=== PATIENT | male | born 1965 | race Caucasian/White ===

== ENCOUNTER → 2021-12-24 | Outpatient (CLI) | payer BC ==
--- NOTE | 2021-12-25 01:15 | MR ---
EXAMINATION TYPE: MR cervical spine wo con DATE OF EXAM: 12/24/2021 COMPARISON: None HISTORY: Right side facial numbness and neck numbness for over a year. Multiplanar multi echo imaging of the cervical spine without contrast. There is fairly normal alignment of the vertebra. There is degenerative disc space narrowing from C3 to C7 with spurring of the endplates. There is moderate endplate spur formation and spinal stenosis p resent from C3 to C6 level. Spinal canal is 6.5 mm at C3-4. Spinal canal is 8 mm at C4-5. Spinal quiana l measures 5.5 mm at C5-6. There is mild flattening of the cervical cord. There is no paraspinal mass . Brainstem is intact. Cervical cord shows no significant edema. There is multilevel hypertrophic fac et arthropathy. IMPRESSION: Moderate multilevel spondylotic changes. Multilevel cervical spinal stenosis mainly at C5 C6. No frac ture seen.
== END | disposition home or self-care (01) ==
LOC: RADMRIMAIN 21:29
PROVIDERS: ATTEND Physician Assistant Medical
DX: M48.02 Spinal stenosis, cervical region (principal); M47.22 Other spondylosis with radiculopathy, cervical region
CPT/HCPCS: 72141

== ENCOUNTER → 2022-03-24 | Outpatient (CLI) | payer BC ==
[2022-03-24 13:42] VITALS: BP 148/79; PULSE 86; RESP 16
--- NOTE | 2022-03-24 14:19 | P.PAINPG ---
PQRS Measure Charge Sheet Comment: HISTORY OF PRESENT ILLNESS: 56 yr old male as a referral from Dr. Otto presents today with severe and chronic cervical pain secondary to C3-C7 spinal stenosis, spondylosis and facet arthropathy for evaluation. Patient states his neck pain and numbness is approximately 2 out of 10 in intensity, localized to the mid to lower aspect of his cervical spine, right side greater than left, intermittent and provoked with rotation, lateral flexion and lifting with the upper extremities. It is relieved with medications (Flexeril), daily home exercise regimen, manual traction performed in the exam room, repositioning and rest. Patient has not had physical therapy of his cervical spine, only his lumbar spine several years ago. PMH: HTN, OA PSH: L4-L5 fusion w hardware placement, Colostomy w reversal, Rectus Sheath Hematoma SH: Current tobacco user, Occasional ETOH use, No illicit drug use FH: HTN, DM All: Keflex- Syncope Meds: See list REVIEW OF ORGAN SYSTEMS: CONSTITUTIONAL: No fevers or chills. No recent weight loss. NEUROLOGICAL: + numbness and tingling along the distal extremities. No seizure disorders or headaches. MUSCULOSKELETAL: + pain PSYCHIATRIC: Denies current depression or suicidal thoughts. Physical Examinations : Constitutional : Cooperative , not in acute distress . Neurologic : Cranial nerve II to XII intact. No focal neurological deficits. Psychiatric : alert & oriented x 3. Matching mood & appropriate affect. Judgment & insight intact. Musculoskeletal : Cervical Spine Motor strength in the deltoid and biceps: Normal right side. Normal Left side Motor strength biceps and the wrist extensors: Normal right side . Normal left side Motor strength in the triceps muscle: Normal right side. Normal left side Deep tendon reflexes: Normal at the biceps. Normal at Brachioradialis. Normal at triceps Vertebral body tenderness to deep palpation over C6, C7 Cervical facet loading test: positive bilaterally Spurling test: positive R>L Neck distraction test: positive BL Dustin sign: positive bilaterally Lumbar spine Motor strength lower extremities ,thigh and legs 5/5 Right side , 5/5 Left side Deep tendon reflexes : Normal Knee Jerk. Normal Ankle Jerk Vertebral body tenderness over Lumbar facet Loading Test: positive Right / positive Left Range of motion of the lumbar spine Flexion 30 degrees, extension 10 degrees Straight Leg Raise test: Left/ Right positive at degree Rivas test: positive right / positive left. Severe tenderness over the Sacroiliac joint on the Right / Left sides Gaenslen test: positive bilaterally Seated flexion test: positive bilaterally. Sacral spine : Severe tenderness over the Sacroiliac joint: right side / left side Range of motion: Flexion of the lumbar spine <60 degrees Range of motion: Extension of the lumbar spine <20 degrees Gaenslen's Test positive Pramod's Test positive Rivas test: positive right side / left side Thigh Thrust Test Sacral Thrust Test Imaging: MRI without contrast of the cervical spine from 12/24/21 reviewed Assessment/ Plan : Cervical spondylosis, cervical stenosis Recommendation of PT of the cervical spine 3 times per week x 6 weeks Dx M50.30. Pt may return to our clinic for a re evaluation and a discussion of further treatment options, if necessary. All questions answered. I have spent greater than 30 minutes on patient care today. Dr Ferro was available by phone for the evaluation of this patient. The time was used to review the medical records including relevant urine studies and Prescription history (MAPs), review of the available imaging, evaluation and examination of the patient, coordination of care with the medical staff and if applicable referring physicians, as well as creation of the medical record Controlled Substance Measures - Controlled Substance Measures Is patient prescribed a controlled substance at discharge?: No
== END ==
LOC: PNWHC3 12:27
PROVIDERS: ATTEND Specialist
DX: M47.22 Other spondylosis with radiculopathy, cervical region (principal); M50.10 Cervical disc disorder with radiculopathy, unspecified cervical region; M48.02 Spinal stenosis, cervical region; I10 Essential (primary) hypertension; M19.90 Unspecified osteoarthritis, unspecified site; F17.200 Nicotine dependence, unspecified, uncomplicated; Z88.1 Allergy status to other antibiotic agents
CPT/HCPCS: 99211

== ENCOUNTER 2022-04-22 14:08 | Inpatient (IN) | payer BC ==
[2022-04-22] MEDS ORDERED: SODIUM CHLORIDE 0.9% 500 ML 500 ML IV ONE (14:29)
--- NOTE | 2022-04-22 14:32 | ED ---
General Adult HPI - General Chief complaint: Altered Mental Status Stated complaint: AMS Time Seen by Provider: 04/22/22 14:15 Source: patient, RN notes reviewed, old records reviewed Mode of arrival: ambulatory Limitations: no limitations - History of Present Illness Initial comments: This a 56-year-old male presents emergency Department with his sister according to the sister patient has been altered recently. Sister states that he lives with her and she has noticed lately he is not himself he said turning to go into a room in the wrong direction he's leaving the stove and he didn't know which apartment building was his on which is abnormal for him. Patient has had some Suboxone because he has chronic pain but other than that he has no medical problems. He is not a drinker any only smokes marijuana no other illegal drugs. Patient denies any recent fever chills or cough. Patient himself states he feels somewhat confused. Patient denies headache patient denies any numbness or weakness. Patient denies any chest pain shortness of breath or difficulty breathing. Patient denies any abdominal pain patient denies any nausea vomiting. Patient denies any recent injury or trauma. - Related Data Home Medications Medication Instructions Recorded Confirmed Cyclobenzaprine [Flexeril] 1 tab PO TID PRN 03/24/22 03/24/22 amLODIPine [Norvasc] 1 tab PO DAILY 03/24/22 03/24/22 buprenorphine HCL [Subutex] 1 tab PO TID 03/24/22 03/24/22 Allergies Allergy/AdvReac Type Severity Reaction Status Date / Time cephalexin [From Keflex] Allergy Confusion Verified 04/22/22 14:13 Review of Systems ROS Statement: Those systems with pertinent positive or pertinent negative responses have been documented in the HPI. ROS Other: All systems not noted in ROS Statement are negative. Past Medical History Past Medical History: Syncope History of Any Multi-Drug Resistant Organisms: None Reported Past Surgical History: Back Surgery Additional Past Surgical History / Comment(s): Colostomy and reverse colostomy Past Anesthesia/Blood Transfusion Reactions: No Reported Reaction Past Psychological History: Unable to Obtain Smoking Status: Current every day smoker Past Alcohol Use History: None Reported Past Drug Use History: Marijuana General Exam - General Exam Comments Initial Comments: GENERAL: Patient is well-developed and well-nourished. Patient is nontoxic and well- hydrated and is in no acute distress. ENT: Neck is soft and supple. No significant lymphadenopathy is noted. Oropharynx is clear. Moist mucous membranes. Neck has full range of motion without eliciting any pain. EYES: The sclera were anicteric and conjunctiva were pink and moist. Extraocular movements were intact and pupils were equal round and reactive to light. Eyelids were unremarkable. PULMONARY: Unlabored respirations. Good breath sounds bilaterally. No audible rales rhonchi or wheezing was noted. CARDIOVASCULAR: There is a regular rate and rhythm without any murmurs gallops or rubs. ABDOMEN: Soft and nontender with normal bowel sounds. SKIN: Skin is clear with no lesions or rashes and otherwise unremarkable. NEUROLOGIC: Patient is alert and oriented x3. Cranial nerves II through XII are grossly intact. Motor and sensory are also intact. Normal speech, volume and content. Symmetrical smile. MUSCULOSKELETAL: Normal extremities with adequate strength and full range of motion. LYMPHATICS: No significant lymphadenopathy is noted PSYCHIATRIC: Normal psychiatric evaluation. Limitations: no limitations Course Vital Signs 04/22/22 04/22/22 14:11 15:04 Temperature 98.5 F 99.4 F Pulse Rate 84 Respiratory 20 Rate Blood Pressure 152/76 O2 Sat by Pulse 99 Oximetry Medical Decision Making - Medical Decision Making EKG shows sinus rhythm at 70 bpm MT interval is 136 QRS is 114 QT interval 368 QTC is 401. Patient's EKG shows no ST segment elevation or depression. Chest x-ray shows a left lung mass. CAT scan of the brain shows 2 large lesions in the parietal region of the brain bilaterally consistent with metastatic disease. I spoke with he agreed to admit the patient. I spoke with oncology the agreed the patient should be admitted here and they wanted to be consulted as well as have Dr. Zelaya consulted. Patient was given Decadron in the emergency department. - Lab Data Result diagrams: 04/22/22 14:31 04/22/22 14:31 Lab Results 04/22/22 04/22/22 04/22/22 Range/Units 14:31 14:31 14:31 WBC 7.6 (3.8-10.6) k/uL RBC 4.02 L (4.30-5.90) m/uL Hgb 12.2 L (13.0-17.5) gm/dL Hct 37.0 L (39.0-53.0) % MCV 92.0 (80.0-100.0) fL MCH 30.5 (25.0-35.0) pg MCHC 33.1 (31.0-37.0) g/dL RDW 14.8 (11.5-15.5) % Plt Count 325 (150-450) k/uL MPV 7.2 Neutrophils % 73 % Lymphocytes % 18 % Monocytes % 5 % Eosinophils % 2 % Basophils % 0 % Neutrophils # 5.5 (1.3-7.7) k/uL Lymphocytes # 1.3 (1.0-4.8) k/uL Monocytes # 0.4 (0-1.0) k/uL Eosinophils # 0.1 (0-0.7) k/uL Basophils # 0.0 (0-0.2) k/uL PT 10.1 (9.0-12.0) sec INR 0.9 (<1.2) APTT 25.8 (22.0-30.0) sec Sodium 137 (137-145) mmol/L Potassium 4.0 (3.5-5.1) mmol/L Chloride 104 (98-107) mmol/L Carbon Dioxide 28 (22-30) mmol/L Anion Gap 5 mmol/L BUN 22 H (9-20) mg/dL Creatinine 0.78 (0.66-1.25) mg/dL Est GFR (CKD-EPI)AfAm >90 (>60 ml/min/1.73 sqM) Est GFR (CKD-EPI)NonAf >90 (>60 ml/min/1.73 sqM) Glucose 106 H (74-99) mg/dL POC Glucose (mg/dL) (70-110) mg/dL POC Glu Topographical Field Assistant ID Calcium 9.7 (8.4-10.2) mg/dL Total Bilirubin 0.2 (0.2-1.3) mg/dL AST 34 (17-59) U/L ALT 13 (4-49) U/L Alkaline Phosphatase 60 (38-126) U/L Troponin I (0.000-0.034) ng/mL Total Protein 6.5 (6.3-8.2) g/dL Albumin 4.3 (3.5-5.0) g/dL Urine Opiates Screen (NotDetected) Ur Oxycodone Screen (NotDetected) Urine Methadone Screen (NotDetected) Ur Propoxyphene Screen (NotDetected) Ur Barbiturates Screen (NotDetected) U Tricyclic Antidepress (NotDetected) Ur Phencyclidine Scrn (NotDetected) Ur Amphetamines Screen (NotDetected) U Methamphetamines Scrn (NotDetected) U Benzodiazepines Scrn (NotDetected) Urine Cocaine Screen (NotDetected) U Marijuana (THC) Screen (NotDetected) 04/22/22 04/22/22 04/22/22 Range/Units 14:31 14:41 15:01 WBC (3.8-10.6) k/uL RBC (4.30-5.90) m/uL Hgb (13.0-17.5) gm/dL Hct (39.0-53.0) % MCV (80.0-100.0) fL MCH (25.0-35.0) pg MCHC (31.0-37.0) g/dL RDW (11.5-15.5) % Plt Count (150-450) k/uL MPV Neutrophils % % Lymphocytes % % Monocytes % % Eosinophils % % Basophils % % Neutrophils # (1.3-7.7) k/uL Lymphocytes # (1.0-4.8) k/uL Monocytes # (0-1.0) k/uL Eosinophils # (0-0.7) k/uL Basophils # (0-0.2) k/uL PT (9.0-12.0) sec INR (<1.2) APTT (22.0-30.0) sec Sodium (137-145) mmol/L Potassium (3.5-5.1) mmol/L Chloride (98-107) mmol/L Carbon Dioxide (22-30) mmol/L Anion Gap mmol/L BUN (9-20) mg/dL Creatinine (0.66-1.25) mg/dL Est GFR (CKD-EPI)AfAm (>60 ml/min/1.73 sqM) Est GFR (CKD-EPI)NonAf (>60 ml/min/1.73 sqM) Glucose (74-99) mg/dL POC Glucose (mg/dL) 117 H (70-110) mg/dL POC Glu Topographical Field Assistant ID Galileo Sargent Calcium (8.4-10.2) mg/dL Total Bilirubin (0.2-1.3) mg/dL AST (17-59) U/L ALT (4-49) U/L Alkaline Phosphatase (38-126) U/L Troponin I <0.012 (0.000-0.034) ng/mL Total Protein (6.3-8.2) g/dL Albumin (3.5-5.0) g/dL Urine Opiates Screen Not Detected (NotDetected) Ur Oxycodone Screen Not Detected (NotDetected) Urine Methadone Screen Not Detected (NotDetected) Ur Propoxyphene Screen Not Detected (NotDetected) Ur Barbiturates Screen Not Detected (NotDetected) U Tricyclic Antidepress Not Detected (NotDetected) Ur Phencyclidine Scrn Not Detected (NotDetected) Ur Amphetamines Screen Not Detected (NotDetected) U Methamphetamines Scrn Not Detected (NotDetected) U Benzodiazepines Scrn Not Detected (NotDetected) Urine Cocaine Screen Not Detected (NotDetected) U Marijuana (THC) Screen Detected H (NotDetected) Disposition Clinical Impression: Lung mass, Metastatic cancer to brain Disposition: ADMITTED IP TO THIS HOSP Referrals: Saundra Lilly MD [Primary Care Provider] - 1-2 days Time of Disposition: 16:46
[2022-04-22 14:54] LABS: Basophils % (A) 0 %; Eosinophils # (A) 0.1 k/uL (0-0.7); Eosinophils % (A) 2 %; HGB 12.2 gm/dL (13.0-17.5); Lymphocytes # (A) 1.3 k/uL (1.0-4.8); Lymphocytes % (A) 18 %; MCH 30.5 pg (25.0-35.0); MCHC 33.1 g/dL (31.0-37.0); Mean Platelet Volume 7.2; Monocytes # (A) 0.4 k/uL (0-1.0); Monocytes % (A) 5 %; Neutrophils # (A) 5.5 k/uL (1.3-7.7); Neutrophils % (A) 73 %; Platelet Count 325 k/uL (150-450); RBC 4.02 m/uL (4.30-5.90); RDW 14.8 % (11.5-15.5); WBC 7.6 k/uL (3.8-10.6)
--- NOTE | 2022-04-22 14:54 | XR ---
EXAMINATION TYPE: XR chest 2V DATE OF EXAM: 04/22/2022 COMPARISON: None HISTORY: Altered mental status TECHNIQUE: Frontal and lateral views of the chest are obtained. FINDINGS: There is a 2.6 cm mass in the mid left lung suspicious for neoplasm. CT of the chest is re commended for further evaluation. There is no pleural effusion or pneumothorax. The heart size is normal and the pulmonary vasculature is not congested. The osseous structures are intact IMPRESSION: 2.6 cm mass in the left midlung highly suspicious for neoplasm. CT of the chest is recom mended for further evaluation.
[2022-04-22 15:03] LABS: INR 0.9 (<1.2); Partial Thromboplastin Time 25.8 sec (22.0-30.0); Prothrombin Time 10.1 sec (9.0-12.0)
[2022-04-22 15:03] LABS: Glucose,Whole Blood 117 mg/dL (70-110)
[2022-04-22 15:04] LABS: Amphetamine Screen,Urine Not Detected (NotDetected); Barbiturate Screen,Urine Not Detected (NotDetected); Benzodiazepines Screen,Urine Not Detected (NotDetected); Cocaine Screen,Urine Not Detected (NotDetected); Methadone Screen, Urine Not Detected (NotDetected); Opiate Screen,Urine Not Detected (NotDetected); Oxycodone Screen, Urine Not Detected (NotDetected); Phencyclidine Screen,Urine Not Detected (NotDetected); Tricyclic Antidepressant,Urine Not Detected (NotDetected); Urn Cannabinoid Scrn Detected (NotDetected)
[2022-04-22 15:06] LABS: ALT 13 U/L (4-49); AST 34 U/L (17-59); African American GFR (CKD) >90 (>60 ml/min/1.73 sqM); Albumin 4.3 g/dL (3.5-5.0); Alkaline Phosphatase 60 U/L (38-126); Anion Gap 5 mmol/L; Blood Urea Nitrogen 22 mg/dL (9-20); Calcium 9.7 mg/dL (8.4-10.2); Carbon Dioxide 28 mmol/L (22-30); Chloride 104 mmol/L (98-107); Glucose 106 mg/dL (74-99); Non-African American GFR(CKD) >90 (>60 ml/min/1.73 sqM); Sodium 137 mmol/L (137-145); Total Bilirubin 0.2 mg/dL (0.2-1.3); Total Protein 6.5 g/dL (6.3-8.2)
--- NOTE | 2022-04-22 15:09 | CT ---
EXAMINATION TYPE: CT brain wo con CT DLP: 1127.4 mGycm, Automated exposure control for dose reduction was used. DATE OF EXAM: 04/22/2022 2:50 PM COMPARISON: None. CLINICAL INDICATION:Male, 56 years old with history of Altered mental status TECHNIQUE: Brain: Multiple axial CT images of the brain were obtained without IV contrast. FINDINGS: Brain: Extra-axial spaces: No abnormal extra-axial fluid collections. Ventricular system: There is effacement of the posterior horn of the left lateral ventricle. Cerebral parenchyma: No acute intraparenchymal hemorrhage. There are 2 large round hypodense lesions within the bilateral parietal lobes with the left measuring 4.9 x 3.2 cm and the right measuring 3.3 x 3.1 cm. There is subtle nodularity to the inferior aspect of the right lesion. There appears to be within a rim around each lesion. Surrounding vasogenic edema demonstrated. The mo-white junction is well differentiated. Cerebellum: Unremarkable. Mass effect: No evidence of midline shift. Intracranial vasculature: Atherosclerotic calcifications of the intracranial vessels. Soft tissues: Normal. Calvarium/osseous structures: No depressed skull fracture. Paranasal sinuses and mastoid air cells: Clear Visualized orbits: Orbital contents are intact. IMPRESSION: There are 2 large hypodense lesions within the bilateral parietal lobes with the largest measuring up to 4.9 cm with surrounding vasogenic edema. Subtle nodularity along the inferior aspect of the right lesion. Etiologies include abscesses versus metastasis. Further evaluation with contrast-enhanced MR I is recommended. Findings called to and discussed with Dr. Zeb Fam at 3:00 PM on 04/22/2022.
[2022-04-22] MEDS ORDERED: DEXAMETHASONE SOD PHOSPHATE 10 MG/ML 1 ML VIAL IVP STA (15:11)
--- NOTE | 2022-04-22 16:37 | P.CONS ---
History of Present Illness - Reason for Consult Consult date: 04/22/22 [facility] Requesting physician: Carolina Mesa - Chief Complaint "brain fog, vision changes" - History of Present Illness The patient is a 56-year-old male with a [id number] history of smoking. He presents to the emergency room secondary to alteration of his mental status and changes in his vision. Imaging revealed concern for large, cystic brain metastases, possibly from a lung primary. The patient states that he began feeling strange approximately 3 weeks ago. He states he was having "brain fog" with poor memory and episodes of confusion. He also has been dealing with changes in his vision. He states he has had difficulty with depth perception, and despite getting fitted for a new pair of glasses has seen no improvement. He reports he has not had any difficulty with headaches or nausea. He denies weakness, dizziness or numbness/tingling. He presented to the emergency room on April 22, and a chest x-ray performed revealed a 2.6 cm left mid lung mass suspicious for malignancy. He underwent a CT scan of the head without contrast which revealed 2 large, hypodense cystic lesions in the bilateral parietal lobes measuring up to 4.9 x 3.2 cm on the left and 3.3 x 3.1 cm on the right. This was felt to be suspicious for metastatic disease vs abscess. Review of Systems Constitutional: Denies chills, Denies fever, Denies weight loss Eyes: bilateral as per HPI Ears: deny: decreased hearing Ears, nose, mouth and throat: Denies headache Cardiovascular: Denies chest pain Respiratory: Denies cough, Denies dyspnea Gastrointestinal: Denies change in bowel habits Genitourinary: Denies flank pain Musculoskeletal: Reports neck pain, Reports neck stiffness, Denies muscle weakness Integumentary: Denies rash Neurological: Reports change in mentation, Reports confusion, Reports memory loss, Denies aphasia, Denies ataxia, Denies balance difficulties, Denies convulsions, Denies double vision, Denies gait dysfunction, Denies headaches, Denies hearing difficulties, Denies lack of coordination, Denies migraines, Denies motor disturbance, Denies numbness, Denies paralysis, Denies paresthesias, Denies seizures, Denies syncope Past Medical History Past Medical History: Syncope History of Any Multi-Drug Resistant Organisms: None Reported Past Surgical History: Back Surgery Additional Past Surgical History / Comment(s): Colostomy and reverse colostomy Past Anesthesia/Blood Transfusion Reactions: No Reported Reaction Past Psychological History: Unable to Obtain Smoking Status: Current every day smoker (35 years x 1.5 pack/day) Past Alcohol Use History: None Reported Past Drug Use History: Marijuana Medications and Allergies Home Medications Medication Instructions Recorded Confirmed Type Cyclobenzaprine [Flexeril] 1 tab PO TID PRN 03/24/22 03/24/22 History amLODIPine [Norvasc] 1 tab PO DAILY 03/24/22 03/24/22 History buprenorphine HCL [Subutex] 1 tab PO TID 03/24/22 03/24/22 History Allergies Allergy/AdvReac Type Severity Reaction Status Date / Time cephalexin [From Keflex] Allergy Confusion Verified 04/22/22 14:13 Physical Exam Vitals: Vital Signs Temp Pulse Resp BP Pulse Ox 04/22/22 15:04 99.4 F 04/22/22 14:11 98.5 F 84 20 152/76 99 Intake and Output 04/22/22 04/22/22 04/22/22 06:59 14:59 22:59 Other: Weight 61.235 kg - Constitutional General appearance: no acute distress, thin - EENT Eyes: EOMI, PERRLA ENT: hard of hearing - Neck Neck: no lymphadenopathy - Respiratory Respiratory: bilateral: CTA - Cardiovascular Rhythm: regular - Gastrointestinal General gastrointestinal: no distended, soft, no tenderness - Integumentary Integumentary: no pale - Neurologic Neurologic: CNII-XII intact - Musculoskeletal Musculoskeletal: no right sided weakness, no left sided weakness Results CBC & Chem 7: 04/22/22 14:31 04/22/22 14:31 Labs: Abnormal Lab Results - Last 24 Hours (Table) 04/22/22 04/22/22 04/22/22 Range/Units 14:31 14:31 14:41 RBC 4.02 L (4.30-5.90) m/uL Hgb 12.2 L (13.0-17.5) gm/dL Hct 37.0 L (39.0-53.0) % BUN 22 H (9-20) mg/dL Glucose 106 H (74-99) mg/dL POC Glucose (mg/dL) (70-110) mg/dL U Marijuana (THC) Screen Detected H (NotDetected) 04/22/22 Range/Units 15:01 RBC (4.30-5.90) m/uL Hgb (13.0-17.5) gm/dL Hct (39.0-53.0) % BUN (9-20) mg/dL Glucose (74-99) mg/dL POC Glucose (mg/dL) 117 H (70-110) mg/dL U Marijuana (THC) Screen (NotDetected) Chest x-ray: report reviewed, image reviewed CT Scan - head: report reviewed, image reviewed Assessment and Plan Assessment: The patient is a 56-year-old male with a [id number] history of smoking. He presents to the emergency room secondary to alteration of his mental status and changes in his vision. Imaging revealed concern for large, cystic brain metastases, possibly from a lung primary. Plan: 1. AMS/vision change: Clearly secondary to findings on CT brain. There are 2, large cystic lesions. The patient has been given a 10 mg Decadron loading dose, would then start 4 mg TID; add PPI. 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 Patient clinically appears stable - no need for urgent radiotherapy. Considering 2 separate lesions, would recommend completion of imaging before consideration of neurosurgical evaluation. 2. Lung lesion: Suspicious for underlying lung cancer vs metastases from other primary cancer. Heavy smoking history. Recommend a CT scan of the chest, abdomen and pelvis with contrast for evaluation. 3. History of chronic back pain - upper/lower: Follows with pain clinic, unlikely to be related to new diagnosis. Time with Patient: Greater than 30
[2022-04-22] MEDS ORDERED: SODIUM CHLORIDE 0.9% 1,000 ML IV ONE (16:46)
--- NOTE | 2022-04-22 17:39 | P.CONS ---
History of Present Illness - Reason for Consult Consult date: 04/22/22 Concern for malignancy, SVC syndrome Requesting physician: Ravi Fam - Chief Complaint Confusion - History of Present Illness Mr. Riddle is a 56-year-old gentleman with a past medical history significant for tobacco abuse who presents to the ED today with a 2 to three-day history of increased confusion. He notes that about 3 weeks ago, he noticed increased motion in his visual ayon bilaterally. He is also noticed a highlighter yellow hue to the edges of his visual ayon bilaterally. More prominently, he had increased difficulty performing his ADLs over the past 2-3 days. His sister, who lives close to him, has noticed him having increased difficulty doi ng daily chores. She has not an episode where he kept the stove on for no apparent reason. He notes increased confusion himself and is unable to concentrate or focus. He denies any fevers, chills, night sweats, lymphadenopathy, weight loss, anorexia, dyspnea, hemoptysis, abdominal pain, nausea, vomiting, diarrhea, or new sites of pain. He denies any swelling of the upper extremities, facial plethora, or persistent cough/stridor. He is a current cigarette smoker, smoking 1-1-1/2 packs of cigarettes daily for approximately 40 years. Given the progressive confusion, sister brought him to the ED for additional management and monitoring. Brain CT without contrast revealed 2 hypodense lesio ns within the bilateral parietal lobes measuring up to 4.9 cm with vasogenic edema. Chest x-ray revealed a 2.6 cm mass in the mid left lung field. CT of the cervical spine revealed multilevel spinal stenosis most prominent at C5 to C6 with no evidence of fracture. Labs, including CMP and CBC, revealed no significant metabolic abnormalities. Coagulation studies are within normal limits. He received dexamethasone 10 mg IV 1. Given the findings on imaging, oncology was counseled that for additional management recommendations. Review of Systems 14 point review of systems was conducted with pertinent positives and negatives as noted per HPI Past Medical History Past Medical History: Syncope History of Any Multi-Drug Resistant Organisms: None Reported Past Surgical History: Back Surgery Additional Past Surgical History / Comment(s): Colostomy and reverse colostomy Past Anesthesia/Blood Transfusion Reactions: No Reported Reaction Past Psychological History: Unable to Obtain Smoking Status: Current every day smoker Past Alcohol Use History: None Reported Past Drug Use History: Marijuana Medications and Allergies Home Medications Medication Instructions Recorded Confirmed Type Cyclobenzaprine [Flexeril] 1 tab PO BID PRN 03/24/22 04/22/22 History buprenorphine HCL [Subutex] 1 tab PO TID 03/24/22 04/22/22 History amLODIPine BES/OLMESARTAN MED 1 tab PO DAILY 04/22/22 04/22/22 History [Mae 10-40 MG] Allergies Allergy/AdvReac Type Severity Reaction Status Date / Time cephalexin [From Keflex] Allergy Confusion Verified 04/22/22 14:13 Physical Exam Vitals: Vital Signs Temp Pulse Resp BP Pulse Ox 04/22/22 15:04 99.4 F 04/22/22 14:11 98.5 F 84 20 152/76 99 Intake and Output 04/22/22 04/22/22 04/22/22 06:59 14:59 22:59 Other: Weight 61.235 kg - Constitutional General appearance: cooperative, no acute distress, thin - EENT Eyes: EOMI, PERRLA - Neck Neck: lymphadenopathy (Right cervical, right subclavicular) - Respiratory Respiratory: bilateral: CTA - Cardiovascular Rhythm: regular Heart sounds: normal: S1, S2 - Gastrointestinal General gastrointestinal: normal bowel sounds - Integumentary No suspicious skin lesions, petechiae, or ecchymosis are noted - Neurologic Neurologic: CNII-XII intact (No focal deficits) - Musculoskeletal Musculoskeletal: strength equal bilaterally - Psychiatric Psychiatric: appropriate affect Results CBC & Chem 7: 04/22/22 14:31 04/22/22 14:31 Labs: Abnormal Lab Results - Last 24 Hours (Table) 04/22/22 04/22/22 04/22/22 Range/Units 14:31 14:31 14:41 RBC 4.02 L (4.30-5.90) m/uL Hgb 12.2 L (13.0-17.5) gm/dL Hct 37.0 L (39.0-53.0) % BUN 22 H (9-20) mg/dL Glucose 106 H (74-99) mg/dL POC Glucose (mg/dL) (70-110) mg/dL U Marijuana (THC) Screen Detected H (NotDetected) 04/22/22 Range/Units 15:01 RBC (4.30-5.90) m/uL Hgb (13.0-17.5) gm/dL Hct (39.0-53.0) % BUN (9-20) mg/dL Glucose (74-99) mg/dL POC Glucose (mg/dL) 117 H (70-110) mg/dL U Marijuana (THC) Screen (NotDetected) Chest x-ray: report reviewed Assessment and Plan Assessment: Mr. Riddle is a 56-year-old gentleman with a history of tobacco abuse who presents with visual deficits and progressive metabolic encephalopathy over the past 2-3 days. Given the findings on CT brain and chest x-ray, there is concern for metastatic malignancy of yet to be determined etiology. He is currently hemodynamically stable with no focal neurologic deficits on exam. Bilateral parietal lobe hypodense lesions, left mid lung mass -Recommend obtaining a brain MRI with and without contrast for better visualization of the brain lesions -Recommend obtaining computed tomography scan of the chest & abdomen/pelvis with contrast for further assessment for potential malignancy -Given physical exam findings, also recommend obtaining computed tomography scan of the neck with contrast -Recommend starting dexamethasone 4 mg IV every 6 hours to reduce vasogenic edema in the brain -Ensure patient is receiving GI prophylaxis with PPI -Agree with radiation oncology consult -Recommend neurology/neurosurgery consult for additional management recommendations given brain lesions -Given his cachectic appearance, testing for HIV is also warranted Time with Patient: Greater than 30
[2022-04-22] MEDS: DEXAMETHASONE SOD PHOSPHATE 4 MG/ML 1 ML VIAL IVP SCH ×2 (18:02→23:04)
[2022-04-22] MEDS: PANTOPRAZOLE 40 MG/10 ML VIAL IVP SCH (20:33)
[2022-04-23] MEDS: NON FORMULARY DRUG (Buprenorphine Hcl [Subutex] 8 MG Tablet) PO SCH ×4 (01:22→21:33)
[2022-04-23] MEDS: DEXAMETHASONE SOD PHOSPHATE 4 MG/ML 1 ML VIAL IVP SCH ×3 (05:56→17:36)
[2022-04-23] MEDS: amLODIPine 10 MG TAB PO SCH (07:29)
[2022-04-23] MEDS: LOSARTAN 50 MG TAB PO SCH (07:29)
[2022-04-23] MEDS: PANTOPRAZOLE 40 MG/10 ML VIAL IVP SCH ×2 (07:30→21:33)
[2022-04-23 08:08] LABS: Glucose,Whole Blood 263 mg/dL (70-110)
--- NOTE | 2022-04-23 08:52 | P.CNNES ---
History of Present Illness Consult date: 04/23/22 Requesting physician: Ravi Fam Reason for Consult: metastatic brain lesions History of Present Illness: This is a 56-year-old gentleman with significant tobacco use who presented to the emergency department because of a three-week episode of visual disturbance and confusion. Patient stated that for the past 3 weeks she's been having difficulty focusing both eyes and he feels thinks has been distorted upon look ing at them. Such as when he was looking forward he felt the images were not sharp and not detailed. He had light sensitivity. He also has been feeling off and that described as a brain fog and not eating able to focus. He denies any jerk in of any extremities, tongue biting, urinary bowel incontinence. Denies being notified that he had any seizure-like activity. Denies any history of seizures. He has had a mild headache over the frontal region yesterday but stated that resolved today. Denies any nausea or vomiting. Denies any unintentional weight loss. She denies any focal weakness or numbness. Patient smokes about a pack and a half a day since the age of 20. He denies any history of cancer that he is aware of in the past. He stated that his mother had history of lung fibrosis. Otherwise no significant family history of cancer. Some other workup during this hospital visit consisted of: Patient has been afebrile Initial white blood cells 7.6 thousand Chemistry panel is reviewed and seems unremarkable Urine drug screen is positive for marijuana otherwise is nondetected CT of the head without contrast is reported as there are 2 large hypodense lesion in bilateral parietal lobe with the largest measuring up to 4.9 cm with surrounding vasogenic edema. Septal nodularity along the inferior aspect of the right lesion. Etiology include abscess versus metastatic. Further evaluation with contrast enhanced MRI is recommended. I personally reviewed that that CT of the head and I feel the over the parietal region predominately but involving occipital region with vasogenic edema. Chest x-ray was reported as 2.6 cm mass in the left midlung highly suspicious for neoplasm. CT chest is recommended for further evaluation. Review of Systems Review of system: The 12 point system was reviewed and apparent positive and negative per HPI. Past Medical History Past Medical History: Hypertension Additional Past Medical History / Comment(s): bowel obstruction, cervical spinal stenosis History of Any Multi-Drug Resistant Organisms: None Reported Past Surgical History: Back Surgery Additional Past Surgical History / Comment(s): Colostomy and reverse colostomy, L4-L5 fusion Past Anesthesia/Blood Transfusion Reactions: No Reported Reaction Past Psychological History: No Psychological Hx Reported Smoking Status: Current every day smoker Past Alcohol Use History: None Reported Past Drug Use History: Marijuana - Past Family History Mother Family Medical History: Cancer, Hypertension Additional Family Medical History / Comment(s): lung CA Father Family Medical History: Diabetes Mellitus Medications and Allergies Home Medications Medication Instructions Recorded Confirmed Type Cyclobenzaprine [Flexeril] 1 tab PO BID PRN 03/24/22 04/22/22 History buprenorphine HCL [Subutex] 1 tab PO TID 03/24/22 04/22/22 History amLODIPine BES/OLMESARTAN MED 1 tab PO DAILY 04/22/22 04/22/22 History [Mae 10-40 MG] Allergies Allergy/AdvReac Type Severity Reaction Status Date / Time cephalexin [From Keflex] Allergy Confusion Verified 04/22/22 14:13 Physical Examination - Vital Signs Vital Signs: Vital Signs Temp Pulse Pulse Resp BP BP Pulse Ox 04/23/22 04:54 97.4 F L 73 18 166/95 96 04/22/22 20:22 97.6 F 75 18 153/83 97 04/22/22 20:00 16 04/22/22 17:23 99.0 F 68 18 126/89 98 04/22/22 15:04 99.4 F 04/22/22 14:11 98.5 F 84 20 152/76 99 Intake and Output 04/22/22 04/23/22 04/23/22 22:59 06:59 14:59 Intake Total 500 Balance 500 Intake: Oral 500 Other: Voiding Method Toilet # Voids 1 13 Weight 61.235 kg GENERAL: The patient is lying in bed and is not in acute distress. Patient's appear cachectic. CHEST: The heart rate is regular rate rhythm. No murmurs to auscultation. LUNG: Clear to auscultation bilaterally no wheezing noted throughout. Not labored breathing. ABDOMEN/GI: Bowel sounds present in all 4 quadrants. No tenderness to palpation throughout. NEUROLOGICAL: Higher mental function: The patient is awake, alert, oriented to self. He stated he was in [place] then later stated [facility]. He stated the current year is 1964 then said "wait that is my birthday" and kept on thinking about it but with option correctly chose the year. He is minimally slow responding. He was following simple commands but at times had difficulty. He correctly name objects (pen, watch, glassess). No aphasia. Cranial nerves: The pupils are round, equal and reactive to light. Visual ayon is right homonymous hemianopsia to confrontation. Extraocular movement is intact no nystagmus is noted. Facial sensation is normal to touch throughout. The facial strength is normal throughout. Hearing is normal bilaterally to hand rub. Tongue is midline and moved [id number] without any difficulty. No dysarthria is noted. Shoulder shrug is normal bilaterally. Motor: The strength is 5 over 5 throughout. Normal tone and bulk. Cerebellum: Normal finger to nose bilaterally. Sensation: Sensation is normal to touch throughout. Reflexes (right/left): 2+ throughout Plantars are downgoing bilaterally. Results - Laboratory Findings CBC and BMP: 04/22/22 14:31 04/22/22 14:31 Abnormal Lab Findings: Abnormal Labs 04/22/22 04/22/22 04/22/22 14:31 14:31 14:41 RBC 4.02 L Hgb 12.2 L Hct 37.0 L BUN 22 H Glucose 106 H POC Glucose (mg/dL) U Marijuana (THC) Screen Detected H 04/22/22 04/23/22 15:01 08:07 RBC Hgb Hct BUN Glucose POC Glucose (mg/dL) 117 H 263 H U Marijuana (THC) Screen Assessment and Plan Assessment: This is a 56-year-old gentleman who presented that because of three-week visual disturbance and confusion. CXR showed left lung mass. CT of the head shows bilateral mass over predominately parietal but also occipital region Brain metastases (over predominately over bilateral parietal and also involving occipital region). Possible primary lung. Vasogenic edema due to above. Right homonymous hemianopsia Encephalopathy due to brain mets. Rule out seizure. Since has brain mass that can cause brain irritability. Left lung mass Tobacco use smokes 1.5 pack a day since age of 20 Plan: I ordered MRI of the brain with and without. Patient is on dexamethasone 4 mg IV every 6 hours which I agree. Currently the patient is on IV Protonix 40 mg twice a day. Defer sugar control to the primary team I ordered a routine EEG to rule out any seizure or epileptiform discharges. In the meantime I start the patient on Keppra 500 mg every 12 hours for seizure prophylaxis and if EEG is negative for seizures and no clinical seizure can discontinue medication after 7 days. Every 4 hours neuro checks Oncology team is on board Radiation oncology team is on board I highly recommended the patient to be evaluated by neurosurgeon after being discharged him our facility as soon as possible as an outpatient. Patient was counseled on tobacco cessation We'll defer the rest of the medical management to the primary team Plan discussed with the patient as well as his nurse Thank you for the consultation. Ronni San M.D. Neuro-hospitalist Time with Patient: Greater than 30
[2022-04-23] MEDS: levETIRAcetam 500 MG TAB PO SCH ×2 (09:05→21:33)
[2022-04-23 09:33] LABS: HCT 35.3 % (39.6-50.0); HGB 11.6 g/dL (13.0-17.0); MCH 29.5 pg (27.0-32.0); MCHC 32.9 g/dL (32.0-37.0); MCV 89.8 fL (80.0-97.0); Mean Platelet Volume 9.7 fL (9.5-12.2); NRBC Per 100 WBC 0 /100 WBCS (0.0-0.0); Platelet Count 286 X 10*3/uL (140-440); RBC 3.93 X 10*6/uL (4.40-5.60); RDW 14.1 % (11.5-14.5); WBC 7.32 X 10*3/uL (4.50-10.00)
--- NOTE | 2022-04-23 09:42 | P.HPIM ---
History of Present Illness H&P Date: 04/22/22 Chief Complaint: Altered mental status 56-year-old male presents emergency Department with his sister according to the sister patient has been altered recently. Sister states that he lives with her and she has noticed lately he is not himself he said turning to go into a room in the wrong direction he's leaving the stove and he didn't know which apartment building was his on which is abnormal for him. Patient has had some Suboxone because he has chronic pain but other than that he has no medical problems. He is not a drinker any only smokes marijuana no other illegal drugs. Patient denies any recent fever chills or cough. Patient himself states he feels somewhat confused. Patient denies headache patient denies any numbness or weakness. Patient denies any chest pain shortness of breath or difficulty breathing. Patient denies any abdominal pain patient denies any nausea vomiting. Patient denies any recent injury or trauma. Workup completed in ED includes: Initial blood work, WBC 7.6, hemoglobin of 12.2, platelet count of 325, sodium 137, potassium 4.0, BUN/creatinine of 22/0.78 and blood glucose of 106 Chemistry panel is reviewed and seems unremarkable Urine drug screen is positive for marijuana otherwise is nondetected CT of the head without contrast is reported as there are 2 large hypodense lesion in bilateral parietal lobe with the largest measuring up to 4.9 cm with surrounding vasogenic edema. Septal nodularity along the inferior aspect of the right lesion. Etiology include abscess versus metastatic disease. Chest x-ray was reported as 2.6 cm mass in the left midlung highly suspicious for neoplasm. CT chest is recommended for further evaluation. Patient is admitted to the hospital for further workup and consultation with oncology, neurosurgery and neurology Review of Systems REVIEW OF SYSTEMS: CONSTITUTIONAL: No fever, no malaise, no fatigue. HEENT: No recent visual problems or hearing problems. Denied any sore throat. CARDIOVASCULAR: No chest pain, orthopnea, PND, no palpitations, no syncope. PULMONARY: No shortness of breath, no cough, no hemoptysis. GASTROINTESTINAL: No diarrhea, no nausea, no vomiting, no abdominal pain. NEUROLOGICAL: No headaches, no weakness, no numbness. HEMATOLOGICAL: Denies any bleeding or petechiae. GENITOURINARY: Denies any burning micturition, frequency, or urgency. MUSCULOSKELETAL/RHEUMATOLOGICAL: Denies any joint pain, swelling, or any muscle pain. ENDOCRINE: Denies any polyuria or polydipsia. The rest of the 14-point review of systems is negative. Past Medical History Past Medical History: Syncope History of Any Multi-Drug Resistant Organisms: None Reported Past Surgical History: Back Surgery Additional Past Surgical History / Comment(s): Colostomy and reverse colostomy Past Anesthesia/Blood Transfusion Reactions: No Reported Reaction Past Psychological History: Unable to Obtain Smoking Status: Current every day smoker Past Alcohol Use History: None Reported Past Drug Use History: Marijuana - Past Family History Mother Family Medical History: Cancer, Hypertension Additional Family Medical History / Comment(s): lung CA Father Family Medical History: Diabetes Mellitus Medications and Allergies Home Medications Medication Instructions Recorded Confirmed Type Cyclobenzaprine [Flexeril] 1 tab PO BID PRN 03/24/22 04/22/22 History buprenorphine HCL [Subutex] 1 tab PO TID 03/24/22 04/22/22 History amLODIPine BES/OLMESARTAN MED 1 tab PO DAILY 04/22/22 04/22/22 History [Mae 10-40 MG] Allergies Allergy/AdvReac Type Severity Reaction Status Date / Time cephalexin [From Keflex] Allergy Confusion Verified 04/22/22 14:13 Physical Exam Vitals: Vital Signs Temp Pulse Resp BP Pulse Ox 04/22/22 15:04 99.4 F 04/22/22 14:11 98.5 F 84 20 152/76 99 Intake and Output 04/22/22 04/22/22 04/22/22 06:59 14:59 22:59 Other: Weight 61.235 kg General appearance: cooperative, no acute distress Eyes: Present: anicteric sclerae, EOMI, PERRLA, normal appearance Neck: Present: normal ROM. Absent: lymphadenopathy, rigidity, thyromegaly; negative for bruit Thyroid: bilateral: normal size, negative: enlarged, nodule Respiratory: bilateral: CTA, negative: rales, rhonchi, wheezing Cardiovascular; regular: normal: S1, S2 Abnormal Heart Sounds: Absent: systolic murmur, diastolic murmur Gastrointestinal: normal bowel sounds, soft. Absent: distended, organomegaly, tenderness Integumentary: Present: normal turgor. Absent: jaundiced, rash, ulcer Neurologic: Present: CNII-XII intact. Absent: focal deficits Musculoskeletal: Present: gait normal, strength equal bilaterally Psychiatric: Present: Alert, appropriate affect, intact judgment & insight Results CBC & Chem 7: 04/22/22 14:31 04/22/22 14:31 Labs: Abnormal Lab Results - Last 24 Hours (Table) 04/22/22 04/22/22 04/22/22 Range/Units 14:31 14:31 14:41 RBC 4.02 L (4.30-5.90) m/uL Hgb 12.2 L (13.0-17.5) gm/dL Hct 37.0 L (39.0-53.0) % BUN 22 H (9-20) mg/dL Glucose 106 H (74-99) mg/dL POC Glucose (mg/dL) (70-110) mg/dL U Marijuana (THC) Screen Detected H (NotDetected) 04/22/22 Range/Units 15:01 RBC (4.30-5.90) m/uL Hgb (13.0-17.5) gm/dL Hct (39.0-53.0) % BUN (9-20) mg/dL Glucose (74-99) mg/dL POC Glucose (mg/dL) 117 H (70-110) mg/dL U Marijuana (THC) Screen (NotDetected) Assessment and Plan Assessment: 1. Metastatic brain lesions with vasogenic edema - No associated motor and patient has been placed on Decadron 4 mg IV every 6 hours; Protonix was added for GI prophylaxis - Monitor Accu-Cheks every before meals and at bedtime with insulin sliding scale for likely steroid-induced hyperglycemia 2. Altered mental status; likely encephalopathy related to brain mass/vasogenic edema; urology on board and agreeable with current dose of Decadron; EEG is ordered to rule out seizure or epileptiform discharges; patient has been placed on Keppra 500 mg every 12 hours for seizure prophylaxis with plans to discontinue if EEG is negative or no clinically detectable seizures after 7 days; monitor neuro checks every 4 hours - MRI of the brain with and without contrast is ordered and pending 3. Left lung mass; likely primary; oncology and radiation oncology on board; further workup further recommendations 4. Hypertension; continue with home dose of Norvasc 10 mg daily along with losartan 150 mg daily 5. Chronic pain; related to cervical spinal stenosis with chronic back pain, patient is status post L4-L5 fusion surgery - continue with home dose of Subutex DVT prophylaxis SCDs CODE STATUS; full code
[2022-04-23 09:43] LABS: African American GFR (CKD) 131.2 (60.0-200.0); Anion Gap 11.8 mmol/L (10.00-18.00); BUN/Creat Ratio 30.67 Ratio (12.00-20.00); Blood Urea Nitrogen 18.4 mg/dL (9.0-27.0); Calcium 9.3 mg/dL (8.7-10.3); Carbon Dioxide 24.2 mmol/L (20.0-27.5); Non-African American GFR(CKD) 113.2 (60.0-200.0); Potassium 4.1 mmol/L (3.5-5.5)
[2022-04-23 10:34] VITALS: BMI 18.8
[2022-04-23 11:36] LABS: Glucose,Whole Blood 131 mg/dL (70-110)
--- NOTE | 2022-04-23 14:45 | MR ---
EXAMINATION TYPE: MR brain wo/w con DATE OF EXAM: 04/23/2022 COMPARISON: CT brain 04/20/2022. HISTORY: Altered mental status, mets, abnormal CT TECHNIQUE: Multiplanar, multisequence images of the brain and brainstem is performed without and with IV contras t, utilizing 6 mL intravenous Gadavist . FINDINGS: There are redemonstration of intra-axial masses bilateral cerebral hemispheres, the largest on the le ft measures 4.9 x 4.8 x 4.0 cm and on the right measuring 4.1 x 4.1 x 3.6 cm. These demonstrate perip heral thin enhancement with central cystic nonenhancing and mild mural nodularity demonstrating enhan cement. Thin rim of restricted diffusion is appreciated. These are centered at the mo-white junctio ns. 100 over the FLAIR Additional lesion seen within the left cerebellum measuring 1.4 x 1.2 x 0.9 cm whi ch is predominantly solid with postcontrast enhancement. Questionable lesion within the left cerebral peduncle measuring 5 mm. Along with questionable inversi on recovery signal abnormality scattered throughout the frontal lobes near the mo-white junctions b ilaterally. The visualized sinuses are clear and the globes are intact. IMPRESSION: Multiple lesions scattered throughout the brain, the largest of which are predominantly cystic in the bilateral parietal regions at the mo-white junction suggestive of metastatic disease. Additional m etastatic focus within the left cerebellar cortex along with multiple inversion recovery signal abnor malities near the mo-white junctions of the cerebral hemispheres suspicious for additional sites of metastatic disease.
[2022-04-23 17:16] LABS: Glucose,Whole Blood 145 mg/dL (70-110)
[2022-04-23 20:48] LABS: Glucose,Whole Blood 193 mg/dL (70-110)
[2022-04-24] MEDS: DEXAMETHASONE SOD PHOSPHATE 4 MG/ML 1 ML VIAL IVP SCH ×5 (01:01→23:39)
[2022-04-24 07:14] LABS: Glucose,Whole Blood 127 mg/dL (70-110)
[2022-04-24] MEDS: amLODIPine 10 MG TAB PO SCH (08:48)
[2022-04-24] MEDS: NON FORMULARY DRUG (Buprenorphine Hcl [Subutex] 8 MG Tablet) PO SCH ×3 (08:48→21:13)
[2022-04-24] MEDS: PANTOPRAZOLE 40 MG/10 ML VIAL IVP SCH ×2 (08:48→21:13)
[2022-04-24] MEDS: levETIRAcetam 500 MG TAB PO SCH ×2 (08:48→21:13)
[2022-04-24] MEDS: LOSARTAN 50 MG TAB PO SCH (08:48)
[2022-04-24 09:45] LABS: African American GFR (CKD) 131.2 (60.0-200.0); Anion Gap 11.5 mmol/L (10.00-18.00); BUN/Creat Ratio 36.17 Ratio (12.00-20.00); Blood Urea Nitrogen 21.7 mg/dL (9.0-27.0); Calcium 9.1 mg/dL (8.7-10.3); Carbon Dioxide 24.5 mmol/L (20.0-27.5); Non-African American GFR(CKD) 113.2 (60.0-200.0)
[2022-04-24 12:16] LABS: Glucose,Whole Blood 139 mg/dL (70-110)
--- NOTE | 2022-04-24 14:46 | CT ---
EXAMINATION TYPE: CT ChestAbdPelvis w con CT DLP: 501.30 mGycm, Automated exposure control for dose reduction was used. DATE OF EXAM: 04/24/2022 2:26 PM COMPARISON: None. CLINICAL INDICATION:Male, 56 years old with history of New brain metastases, unknown primary; Technique: Multiple axial images of the chest, abdomen, and pelvis were obtained following the intrav enous administration of 100 mL Isovue-300. Two-dimensional coronal and sagittal reconstructions were obtained. Findings: Evaluation is limited due to paucity of intra-abdominal fat. CHEST: LUNGS/ PLEURA: No pneumothorax or pleural effusion. Mild to moderate centrilobular and paraseptal emp hysematous changes with upper lobe predominance. 2.3 cm solid pulmonary nodule within the superior se gment of the left upper lobe (series 4, image 33). Lingular scarring demonstrated with punctate nodul e likely representing an intrafissural lymph node. AIRWAY: Patent and unremarkable.. HEART: Size within normal limits. No pericardial effusion. MEDIASTINUM: Enlarged left hilar lymph node measuring 1.7 cm (series 3, image 37). VASCULATURE: Prominence of the descending thoracic aorta measuring up to 4.3 cm. MUSCULOSKELETAL: No acute osseous abnormalities. SOFT TISSUES/LYMPH NODES: Unremarkable. LOWER NECK: No significant findings. ABDOMEN: ABDOMEN LIVER: A few hypodense lesions within the liver most consistent with cysts. GALLBLADDER AND BILE DUCTS: The gallbladder is unremarkable. Intra and extrahepatic biliary ductal di latation with the common bile duct measuring up to 1.5 cm.. PANCREAS: Unremarkable. No pancreatic duct dilatation. SPLEEN: Unremarkable. ADRENAL GLANDS: Unremarkable. KIDNEYS AND URETERS: No evidence of hydronephrosis or renal calculus. Subcentimeter hypodense lesion within left kidney which is too small to characterize. PELVIS BLADDER: Incompletely distended but grossly unremarkable. REPRODUCTIVE: Unremarkable. ABDOMEN & PELVIS STOMACH AND BOWEL: Stomach and duodenum are unremarkable. No focal wall thickening or surrounding inf lammatory changes. Moderate amount of stool is present within the right colon. No evidence of bowel o bstruction. PERITONEUM: No evidence of pneumoperitoneum or free fluid. VASCULATURE: Mild atherosclerotic calcifications are present throughout the abdominal aorta and its b ranches. No abdominal aortic aneurysm. MUSCULOSKELETAL: No acute osseous abnormalities. No suspicious osseous lesions. Postsurgical changes of the lumbar spine with bilateral pedicular screws and rods and laminectomies involving L4-S1. Multi level degenerative changes of visualized spine. LYMPH NODES: No gross evidence for lymphadenopathy. SOFT TISSUE/ABDOMINAL WALL: Unremarkable IMPRESSION: Chest: * 2.3 cm pulmonary nodule within the superior segment of left upper lobe concerning for primary lung malignancy. * Left hilar 1.7 cm large lymph node concerning for metastatic disease. * Mild to moderate emphysematous changes. Abdomen and pelvis: * Intrahepatic and extra hepatic biliary ductal dilatation. Consider further evaluation with MRCP. * No concerning adenopathy.
--- NOTE | 2022-04-24 14:48 | P.PN ---
Subjective Progress Note Date: 04/24/22 The patient seen at bedside and he continues to be about the same. Objective - Vital Signs Vital signs: Vital Signs Temp 98.3 F 04/24/22 11:39 Pulse 85 04/24/22 11:39 Resp 18 04/24/22 11:39 BP 160/86 04/24/22 11:39 Pulse Ox 99 04/24/22 11:39 FiO2 Intake & Output 04/23/22 04/24/22 04/24/22 18:59 06:59 18:59 Intake Total 360 Balance 360 Weight 61.235 kg Intake: Oral 360 Other: Voiding Method Toilet Toilet Toilet # Voids 3 4 - Exam GENERAL: The patient is lying in bed and is not in acute distress. Patient's appear cachectic. NEUROLOGICAL: Higher mental function: The patient is awake, alert, oriented to self. He stated he was in [place] then later stated [facility]. He stated the current year is 1964 then said "wait that is my birthday" and kept on thinking about it but with option correctly chose the year. He is minimally slow responding. He was following simple commands but at times had difficulty. He correctly name objects (pen, watch, glassess). No aphasia. Cranial nerves: The pupils are round, equal and reactive to light. Visual ayon is right homonymous hemianopsia to confrontation. Extraocular movement is intact no nystagmus is noted. Facial sensation is normal to touch throughout. The facial strength is normal throughout. Hearing is normal bilaterally to hand rub. Tongue is midline and moved [id number] without any difficulty. No dysarthria is noted. Shoulder shrug is normal bilaterally. Motor: The strength is 5 over 5 throughout. Normal tone and bulk. Cerebellum: Normal finger to nose bilaterally. Sensation: Sensation is normal to touch throughout. Reflexes (right/left): 2+ throughout Plantars are downgoing bilaterally. Some other workup during this hospital visit consisted of: Patient has been afebrile Initial white blood cells 7.6 thousand Chemistry panel is reviewed and seems unremarkable Urine drug screen is positive for marijuana otherwise is nondetected CT of the head without contrast is reported as there are 2 large hypodense lesion in bilateral parietal lobe with the largest measuring up to 4.9 cm with surrounding vasogenic edema. Septal nodularity along the inferior aspect of the right lesion. Etiology include abscess versus metastatic. Further evaluation with contrast enhanced MRI is recommended. I personally reviewed that that CT of the head and I feel the over the parietal region predominately but involving occipital region with vasogenic edema. Chest x-ray was reported as 2.6 cm mass in the left midlung highly suspicious for neoplasm. CT chest is recommended for further evaluation. MRI the brain is reported as multiple lesions scattered throughout the brain, the largest of which are predominantly cystic in the bilateral parietal region at the mo-white junction suggestive of metastatic disease. Additional metastatic focus within the left cerebellar cortex along the multiple inversion recovery signal abnormality near the mo-white junction of the cerebral hemisphere suspicious for additional site of metastatic disease. I personally reviewed the MRI and I do agree patient has bilateral parietal enhancing cystic lesion in the left seems larger than the right and the left seems the prior parietal but also affecting the occipital region as well as well as there is a left cerebellar enhancement. - Labs CBC & Chem 7: 04/23/22 06:01 04/24/22 04:58 Labs: Abnormal Lab Results - Last 24 Hours (Table) 04/23/22 04/23/22 04/24/22 Range/Units 17:13 20:33 04:58 BUN/Creatinine Ratio 36.17 H (12.00-20.00) Ratio Glucose 139 H (70-110) mg/dL POC Glucose (mg/dL) 145 H 193 H (70-110) mg/dL 04/24/22 04/24/22 Range/Units 07:11 12:08 BUN/Creatinine Ratio (12.00-20.00) Ratio Glucose (70-110) mg/dL POC Glucose (mg/dL) 127 H 139 H (70-110) mg/dL Assessment and Plan Assessment: This is a 56-year-old gentleman who presented that because of three-week visual disturbance and confusion. CXR showed left lung mass. CT of the head shows bilateral mass over predominately parietal but also occipital region Brain metastases (over predominately over bilateral parietal (left > right) and also involving left parietal/occipital and left cerebellar). Possible primary source is lung. Vasogenic edema due to above. Right homonymous hemianopsia Encephalopathy due to brain mets. Rule out seizure. Since has brain mass that can cause brain irritability. Left lung mass Cachectic Tobacco use smokes 1.5 pack a day since age of 20 Plan: Patient is on dexamethasone 4 mg IV every 6 hours which I agree. Currently the patient is on IV Protonix 40 mg twice a day. Defer sugar control to the primary team I ordered a routine EEG to rule out any seizure or epileptiform discharges. In the meantime, on Keppra 500 mg every 12 hours for seizure prophylaxis and if EEG is negative for seizures and no clinical seizure can discontinue medication after 6 days. Every 4 hours neuro checks Oncology team is on board Radiation oncology team is on board Agree with the rest of the workup by oncology team (CT chest, abdomen, Pelvis). I highly recommended the patient to be evaluated by neurosurgeon after being discharged him our facility as soon as possible as an outpatient. Patient was counseled on tobacco cessation We'll defer the rest of the medical management to the primary team Plan discussed with the patient as well as his nurse Dr. Flynn will start neurology service tomorrow ALukas San M.D. Neuro-hospitalist Time with Patient: Less than 30
[2022-04-24 17:11] LABS: Glucose,Whole Blood 217 mg/dL (70-110)
[2022-04-24 20:12] LABS: Glucose,Whole Blood 167 mg/dL (70-110)
--- NOTE | 2022-04-24 22:51 | P.PN ---
Subjective Progress Note Date: 04/23/22 56-year-old male presents emergency Department with his sister according to the sister patient has been altered recently. Sister states that he lives with her and she has noticed lately he is not himself he said turning to go into a room in the wrong direction he's leaving the stove and he didn't know which apartment building was his on which is abnormal for him. Patient has had some Suboxone because he has chronic pain but other than that he has no medical problems. He is not a drinker any only smokes marijuana no other illegal drugs. Patient denies any recent fever chills or cough. Patient himself states he feels somewhat confused. Patient denies headache patient denies any numbness or wea kness. Patient denies any chest pain shortness of breath or difficulty breathing. Patient denies any abdominal pain patient denies any nausea vomiting. Patient denies any recent injury or trauma. Workup completed in ED includes: Initial blood work, WBC 7.6, hemoglobin of 12.2, platelet count of 325, sodium 137, potassium 4.0, BUN/creatinine of 22/0.78 and blood glucose of 106 Chemistry panel is reviewed and seems unremarkable Urine drug screen is positive for marijuana otherwise is nondetected CT of the head without contrast is reported as there are 2 large hypodense lesion in bilateral parietal lobe with the largest measuring up to 4.9 cm with surrounding vasogenic edema. Septal nodularity along the inferior aspect of the right lesion. Etiology include abscess versus metastatic disease. Chest x-ray was reported as 2.6 cm mass in the left midlung highly suspicious for neoplasm. CT chest is recommended for further evaluation. Patient is admitted to the hospital for further workup and consultation with oncology, neurosurgery and neurology Objective - Vital Signs Vital signs: Vital Signs Temp 98.0 F 04/23/22 11:29 Pulse 75 04/23/22 11:29 Resp 18 04/23/22 11:29 BP 138/77 04/23/22 11:29 Pulse Ox 95 04/23/22 11:29 FiO2 Intake & Output 04/22/22 04/23/22 04/23/22 18:59 06:59 18:59 Intake Total 500 Balance 500 Weight 61.235 kg 61.235 kg Intake: Oral 500 Other: Voiding Method Toilet Toilet # Voids 1 13 - Exam General appearance: cooperative, no acute distress Eyes: Present: anicteric sclerae, EOMI, PERRLA, normal appearance Neck: Present: normal ROM. Absent: lymphadenopathy, rigidity, thyromegaly; negative for bruit Thyroid: bilateral: normal size, negative: enlarged, nodule Respiratory: bilateral: CTA, negative: rales, rhonchi, wheezing Cardiovascular; regular: normal: S1, S2 Abnormal Heart Sounds: Absent: systolic murmur, diastolic murmur Gastrointestinal: normal bowel sounds, soft. Absent: distended, organomegaly, tenderness Integumentary: Present: normal turgor. Absent: jaundiced, rash, ulcer Neurologic: Present: CNII-XII intact. Absent: focal deficits Musculoskeletal: Present: gait normal, strength equal bilaterally Psychiatric: Present: Alert, appropriate affect, intact judgment & insight - Labs CBC & Chem 7: 04/23/22 06:01 04/24/22 04:58 Labs: Abnormal Lab Results - Last 24 Hours (Table) 04/23/22 04/23/22 04/23/22 Range/Units 06:01 06:01 08:07 RBC 3.93 L (4.40-5.60) X 10*6/uL Hgb 11.6 L (13.0-17.0) g/dL Hct 35.3 L (39.6-50.0) % BUN/Creatinine Ratio 30.67 H (12.00-20.00) Ratio Glucose 203 H (70-110) mg/dL POC Glucose (mg/dL) 263 H (70-110) mg/dL 04/23/22 Range/Units 11:32 RBC (4.40-5.60) X 10*6/uL Hgb (13.0-17.0) g/dL Hct (39.6-50.0) % BUN/Creatinine Ratio (12.00-20.00) Ratio Glucose (70-110) mg/dL POC Glucose (mg/dL) 131 H (70-110) mg/dL Assessment and Plan Assessment: 1. Metastatic brain lesions with vasogenic edema - No associated motor and patient has been placed on Decadron 4 mg IV every 6 hours; Protonix was added for GI prophylaxis - Monitor Accu-Cheks every before meals and at bedtime with insulin sliding scale for likely steroid-induced hyperglycemia 2. Altered mental status; likely encephalopathy related to brain mass/vasogenic edema; urology on board and agreeable with current dose of Decadron; EEG is ordered to rule out seizure or epileptiform discharges; patient has been placed on Keppra 500 mg every 12 hours for seizure prophylaxis with plans to discontinue if EEG is negative or no clinically detectable seizures after 7 days; monitor neuro checks every 4 hours - MRI of the brain with and without contrast is ordered and pending 3. Left lung mass; likely primary; oncology and radiation oncology on board; further workup further recommendations 4. Hypertension; continue with home dose of Norvasc 10 mg daily along with lo sartan 150 mg daily 5. Chronic pain; related to cervical spinal stenosis with chronic back pain, p atient is status post L4-L5 fusion surgery - continue with home dose of Subutex DVT prophylaxis SCDs CODE STATUS; full code
--- NOTE | 2022-04-24 22:54 | P.PN ---
Subjective Progress Note Date: 04/24/22 Principal diagnosis: Metastatic brain lesions with vasogenic edema Altered mental status Left lung mass 56-year-old male presents emergency Department with his sister according to the sister patient has been altered recently. Sister states that he lives with her and she has noticed lately he is not himself he said turning to go into a room in the wrong direction he's leaving the stove and he didn't know which apartment building was his on which is abnormal for him. Patient has had some Suboxone because he has chronic pain but other than that he has no medical problems. He is not a drinker any only smokes marijuana no other illegal drugs. Patient denies any recent fever chills or cough. Patient himself states he feels somewhat confused. Patient denies headache patient denies any numbness or weakness. Patient denies any chest pain shortness of breath or difficulty breathing. Patient denies any abdominal pain patient denies any nausea vomiting. Patient denies any recent injury or trauma. Workup completed in ED includes: Initial blood work, WBC 7.6, hemoglobin of 12.2, platelet count of 325, sodium 137, potassium 4.0, BUN/creatinine of 22/0.78 and blood glucose of 106 Chemistry panel is reviewed and seems unremarkable Urine drug screen is positive for marijuana otherwise is nondetected CT of the head without contrast is reported as there are 2 large hypodense lesion in bilateral parietal lobe with the largest measuring up to 4.9 cm with surrounding vasogenic edema. Septal nodularity along the inferior aspect of the right lesion. Etiology include abscess versus metastatic disease. Chest x-ray was reported as 2.6 cm mass in the left midlung highly suspicious for neoplasm. CT chest is recommended for further evaluation. Patient is admitted to the hospital for further workup and consultation with oncology, neurosurgery and neurology 04/24/2022 Patient is seen and evaluated in room at bedside; family is present in the room; denies any specific complaints Vital signs are stable temperature 98.3, pulse 85, respiration 18 and blood pressure 160/86 Laboratory review sodium 138, potassium 4.0, BUN/creatinine of 21.7/0.6 and blood glucose of 139 Patient remains on dexamethasone 4 mg IV every 6 hours; continue with Protonix 40 mg IV twice a day for GI prophylaxis Neurology on board and recommending EEG to rule out seizure or epileptiform discharges; patient remains on Keppra 500 mg every 12 hours which could be discontinued if EEG is negative for seizures Medical/radiation Oncology on board Objective - Vital Signs Vital signs: Vital Signs Temp 98.3 F 04/24/22 11:39 Pulse 85 04/24/22 11:39 Resp 18 04/24/22 11:39 BP 160/86 04/24/22 11:39 Pulse Ox 99 04/24/22 11:39 FiO2 Intake & Output 04/23/22 04/24/22 04/24/22 18:59 06:59 18:59 Intake Total 360 Balance 360 Weight 61.235 kg Intake: Oral 360 Other: Voiding Method Toilet Toilet Toilet # Voids 3 4 - Exam General appearance: cooperative, no acute distress Eyes: Present: anicteric sclerae, EOMI, PERRLA, normal appearance Neck: Present: normal ROM. Absent: lymphadenopathy, rigidity, thyromegaly; negative for bruit Thyroid: bilateral: normal size, negative: enlarged, nodule Respiratory: bilateral: CTA, negative: rales, rhonchi, wheezing Cardiovascular; regular: normal: S1, S2 Abnormal Heart Sounds: Absent: systolic murmur, diastolic murmur Gastrointestinal: normal bowel sounds, soft. Absent: distended, organomegaly, tenderness Integumentary: Present: normal turgor. Absent: jaundiced, rash, ulcer Neurologic: Present: CNII-XII intact. Absent: focal deficits Musculoskeletal: Present: gait normal, strength equal bilaterally Psychiatric: Present: Alert, appropriate affect, intact judgment & insight - Labs CBC & Chem 7: 04/23/22 06:01 04/24/22 04:58 Labs: Abnormal Lab Results - Last 24 Hours (Table) 04/23/22 04/23/22 04/24/22 Range/Units 17:13 20:33 04:58 BUN/Creatinine Ratio 36.17 H (12.00-20.00) Ratio Glucose 139 H (70-110) mg/dL POC Glucose (mg/dL) 145 H 193 H (70-110) mg/dL 04/24/22 04/24/22 Range/Units 07:11 12:08 BUN/Creatinine Ratio (12.00-20.00) Ratio Glucose (70-110) mg/dL POC Glucose (mg/dL) 127 H 139 H (70-110) mg/dL Assessment and Plan Assessment: 1. Metastatic brain lesions with vasogenic edema - No associated motor and patient has been placed on Decadron 4 mg IV every 6 hours; Protonix was added for GI prophylaxis - Monitor Accu-Cheks every before meals and at bedtime with insulin sliding scale for likely steroid-induced hyperglycemia 2. Altered mental status; likely encephalopathy related to brain mass/vasogenic edema; urology on board and agreeable with current dose of Decadron; EEG is ordered to rule out seizure or epileptiform discharges; patient has been placed on Keppra 500 mg every 12 hours for seizure prophylaxis with plans to discontinue if EEG is negative or no clinically detectable seizures after 7 days; monitor neuro checks every 4 hours - MRI of the brain with and without contrast is ordered and pending 3. Left lung mass; likely primary; oncology and radiation oncology on board; further workup further recommendations 4. Hypertension; continue with home dose of Norvasc 10 mg daily along with losartan 150 mg daily 5. Chronic pain; related to cervical spinal stenosis with chronic back pain, patient is status post L4-L5 fusion surgery - continue with home dose of Subutex DVT prophylaxis SCDs CODE STATUS; full code
[2022-04-25] MEDS: DEXAMETHASONE SOD PHOSPHATE 4 MG/ML 1 ML VIAL IVP SCH ×4 (06:04→23:08)
[2022-04-25 07:04] LABS: Glucose,Whole Blood 143 mg/dL (70-110)
[2022-04-25] MEDS: levETIRAcetam 500 MG TAB PO SCH ×2 (08:43→20:12)
[2022-04-25] MEDS: amLODIPine 10 MG TAB PO SCH (08:43)
[2022-04-25] MEDS: PANTOPRAZOLE 40 MG/10 ML VIAL IVP SCH ×2 (08:43→20:12)
[2022-04-25] MEDS: LOSARTAN 50 MG TAB PO SCH (08:43)
[2022-04-25] MEDS: NON FORMULARY DRUG (Buprenorphine Hcl [Subutex] 8 MG Tablet) PO SCH ×3 (09:13→21:52)
[2022-04-25 09:26] LABS: African American GFR (CKD) 131.2 (60.0-200.0); Anion Gap 9.8 mmol/L (10.00-18.00); BUN/Creat Ratio 39.5 Ratio (12.00-20.00); Blood Urea Nitrogen 23.7 mg/dL (9.0-27.0); Calcium 9.9 mg/dL (8.7-10.3); Carbon Dioxide 28.2 mmol/L (20.0-27.5); Non-African American GFR(CKD) 113.2 (60.0-200.0); Potassium 4.4 mmol/L (3.5-5.5)
[2022-04-25 11:19] LABS: Glucose,Whole Blood 145 mg/dL (70-110)
--- NOTE | 2022-04-25 11:57 | P.CNPUL ---
History of Present Illness Consult date: 04/25/22 Requesting physician: Henrietta Mishra Reason for consult: other Chief complaint: Confusion, inability to focus, lung mass, metastatic brain lesions History of present illness: This is a 56-year-old White male, chronic smoker, carries [id number] smoking history, at 1-1/2 pack a day for 36 years, came into the emergency department on 04/22/2022 for evaluation of confusion, inability to focus, and and haziness in his vision that have been ongoing for the past 3-4 weeks. According to the patient's sister patient has been altered recently. He hasn't been himself, seems disoriented. Patient denied any headaches, no numbness or weakness. No shortness of breath, no cough, no chest pain or hemoptysis. No recent injury or trauma. No nausea or vomiting. Chest x-ray showed 2.6 cm mass in the mid left lung suspicious for neoplasm. CT of the brain without contrast showed 2 large hypodense lesions within the bilateral parietal lobes with the largest measuring up to 4.9 cm with surrounding vasogenic edema. There was subtle nodularity along the inferior aspect of the right lesion. These findings were suspicious for metastatic malignancy, possibly related to underlying lung cancer, given the findings of the chest x-ray. MRI of the brain showed multiple lesions scattered throughout the brain the largest in the bilateral parietal regions at the great white junction suggestive of metastatic disease. CT of the chest abdomen and pelvis with contrast was completed showing 2.3 cm pulmonary nodule within the superior segment of the left upper lobe concerning for primary lung malignancy, and left hilar 1.7 cm large lymph node, and mild to moderate emphysematous changes. CT of the abdomen and pelvis showed no concerning adenopathy. Patient's lab evaluation showed white count of 7.6, hemoglobin of 12.2, electrolytes and renal profile were unremarkable, LFTs were within normal l imits, troponin was less than 0.012 times one, urine drug screen showed marijuana. Currently patient is awake and alert, resting in the chair, breathing comfortably, room air pulse ox 98%. He is afebrile, hemodynamically has been stable. Lung sounds are clear to auscultation, he is oriented 3, he is able to provide history. He states his main complaint is confusion and difficulty focus along with vision changes. He denies any pulmonary complaints. He was seen in consultation by neurology, he was started on IV dexamethasone, patient was started on IV Keppra, EEG is pending. The recommendation is for transfer to tertiary care facility with neurosurgery coverage. We were asked to see this patient for evaluation of left upper lobe lung mass biopsy Review of Systems All systems: negative Constitutional: Denies chills, Denies fever Eyes: denies blurred vision, denies pain Ears, nose, mouth and throat: Denies headache, Denies sore throat Cardiovascular: Denies chest pain, Denies shortness of breath Respiratory: Denies cough Gastrointestinal: Denies abdominal pain, Denies diarrhea, Denies nausea, Denies vomiting Musculoskeletal: Denies myalgias Integumentary: Denies pruritus, Denies rash Neurological: Reports change in mentation, Reports confusion, Reports visual changes, Denies numbness, Denies weakness Psychiatric: Denies anxiety, Denies depression Endocrine: Denies fatigue, Denies weight change Past Medical History Past Medical History: Hypertension Additional Past Medical History / Comment(s): bowel obstruction, cervical spinal stenosis History of Any Multi-Drug Resistant Organisms: None Reported Past Surgical History: Back Surgery Additional Past Surgical History / Comment(s): Colostomy and reverse colostomy, L4-L5 fusion Past Anesthesia/Blood Transfusion Reactions: No Reported Reaction Past Psychological History: No Psychological Hx Reported Smoking Status: Current every day smoker Past Alcohol Use History: None Reported Past Drug Use History: Marijuana - Past Family History Mother Family Medical History: Cancer, Hypertension Additional Family Medical History / Comment(s): lung CA Father Family Medical History: Diabetes Mellitus Medications and Allergies Home Medications Medication Instructions Recorded Confirmed Type Cyclobenzaprine [Flexeril] 1 tab PO BID PRN 03/24/22 04/22/22 History buprenorphine HCL [Subutex] 1 tab PO TID 03/24/22 04/22/22 History amLODIPine BES/OLMESARTAN MED 1 tab PO DAILY 04/22/22 04/22/22 History [Mae 10-40 MG] Allergies Allergy/AdvReac Type Severity Reaction Status Date / Time cephalexin [From Keflex] Allergy Confusion Verified 04/22/22 14:13 Physical Exam Vitals: Vital Signs Temp Pulse Pulse Resp BP BP Pulse Ox 04/25/22 11:20 98.2 F 75 16 157/80 98 04/25/22 08:45 75 177/63 04/25/22 05:00 97.8 F 65 18 170/97 99 04/24/22 20:35 98.1 F 75 18 166/84 94 L 04/24/22 11:39 98.3 F 85 18 160/86 99 Intake and Output 04/24/22 04/25/22 04/25/22 22:59 06:59 14:59 Intake Total 500 Balance 500 Intake: Oral 500 Other: Voiding Method Toilet # Voids 2 3 GENERAL EXAM: Alert, very pleasant, 56-year-old white male, resting in the recliner, breathing comfortably, on room air with a pulse ox of 98%, comfortable in no apparent distress. HEAD: Normocephalic/atraumatic. EYES: Normal reaction of pupils, equal size. Conjunctiva pink, sclera white. NOSE: Clear with pink turbinates. THROAT: No erythema or exudates. NECK: No masses, no JVD, no thyroid enlargement, no adenopathy. CHEST: No chest wall deformity. Symmetrical expansion. LUNGS: Equal air entry with no crackles, wheeze, rhonchi or dullness. CVS: Regular rate and rhythm, normal S1 and S2, no gallops, no murmurs, no rubs ABDOMEN: Soft, nontender. No hepatosplenomegaly, normal bowel sounds, no guarding or rigidity. EXTREMITIES: No clubbing, no edema, no cyanosis, 2+ pulses and upper and lower extremities. MUSCULOSKELETAL: Muscle strength and tone normal. SPINE: No scoliosis or deformity SKIN: No rashes CENTRAL NERVOUS SYSTEM: Alert and oriented -3. No focal deficits, tone is normal in all 4 extremities. PSYCHIATRIC: Alert and oriented -3. Appropriate affect. Intact judgment and insight. Results - Laboratory Findings CBC and BMP: 04/23/22 06:01 04/25/22 05:36 PT/INR, D-dimer PT 10.1 sec (9.0-12.0) 04/22/22 14:31 INR 0.9 (<1.2) 04/22/22 14:31 Abnormal lab findings: Abnormal Labs 04/22/22 04/22/22 04/22/22 14:31 14:31 14:41 RBC 4.02 L Hgb 12.2 L Hct 37.0 L Carbon Dioxide Anion Gap BUN 22 H BUN/Creatinine Ratio Glucose 106 H POC Glucose (mg/dL) U Marijuana (THC) Screen Detected H 04/22/22 04/23/22 04/23/22 15:01 06:01 06:01 RBC 3.93 L Hgb 11.6 L Hct 35.3 L Carbon Dioxide Anion Gap BUN BUN/Creatinine Ratio 30.67 H Glucose 203 H POC Glucose (mg/dL) 117 H U Marijuana (THC) Screen 04/23/22 04/23/22 04/23/22 08:07 11:32 17:13 RBC Hgb Hct Carbon Dioxide Anion Gap BUN BUN/Creatinine Ratio Glucose POC Glucose (mg/dL) 263 H 131 H 145 H U Marijuana (THC) Screen 04/23/22 04/24/22 04/24/22 20:33 04:58 07:11 RBC Hgb Hct Carbon Dioxide Anion Gap BUN BUN/Creatinine Ratio 36.17 H Glucose 139 H POC Glucose (mg/dL) 193 H 127 H U Marijuana (THC) Screen 04/24/22 04/24/22 04/24/22 12:08 17:08 20:09 RBC Hgb Hct Carbon Dioxide Anion Gap BUN BUN/Creatinine Ratio Glucose POC Glucose (mg/dL) 139 H 217 H 167 H U Marijuana (THC) Screen 04/25/22 04/25/22 04/25/22 05:36 07:02 11:18 RBC Hgb Hct Carbon Dioxide 28.2 H Anion Gap 9.80 L BUN BUN/Creatinine Ratio 39.50 H Glucose POC Glucose (mg/dL) 143 H 145 H U Marijuana (THC) Screen - Diagnostic Findings Chest x-ray: report reviewed, image reviewed CT scan - chest: report reviewed, image reviewed Additional studies: EKG reviewed, computed tomography scan of the chest abdomen and pelvis reviewed, brain CT reviewed Assessment and Plan Plan: Assessment: #1. A new left upper lobe lung mass measuring 2.3 cm and left hilar 1.7 cm lymph node concerning for primary lung cancer with metastasis #2. Brain metastasis, with multiple lesions scattered throughout the brain with largest cystic lesions in the bilateral parietal regions, suspected to metastatic lung cancer #3. Vasogenic edema related to the above #4. Confusion, vision changes, difficulty focusing to related to the above #5. Chronic smoker, patient carries 36 years of smoking and 1-1/2 pack a day #6. History of bowel resection #7. Hypertension #8. Chronic pain syndrome Plan: Chest x-ray, computed tomography scan of the chest, brain CT and MRI reviewed Patient was examined at the bedside Recommend transfer to tertiary care facility with neurosurgery for stereotactic biopsy of the brain lesions The lesion in his left lung is small and difficult to access, and awaiting pathology from lung biopsy may delay diagnosis and treatment We discussed this with the patient and the attending hospitalist on the case Transfer will be initiated to tertiary care facility possibly [facility] or [facility] with neurosurgery coverage I have personally seen and examined the patient, performed the documentation and the assessment and plan as written. Number of minutes spent on the visit: [15] Time with Patient: Greater than 30
--- NOTE | 2022-04-25 14:23 | EEG ---
ELECTROENCEPHALOGRAM REPORT DATE OF SERVICE: 04/25/2022 PREAMBLE: This is for a 56-year-old male with history of metastatic cancer, came to the hospital for 3 week episode of visual disturbance and confusion. The patient also states that he has brain fog and not able to focus. CURRENT MEDICATIONS: Norvasc, Decadron, Keppra, Cozaar, Subutex. EEG FINDINGS: This is a 21 channel digital EEG recorded with video component, utilizing 10/20 international system with referential and bipolar montages. The background consists of well-developed, but somewhat disorganized, mixed frequencies of 9 hertz alpha, and intermixed with some theta activity in bihemispheric region. There is continuous focal slowing in the dysrhythmic moderate amplitude delta range seen in the left temporal region. Intermittent sharp waves were seen involving the left parietal region. There is some drowsiness and stage 2 sleep was seen with presence of sleep spindles. A photic driving response was not clearly seen. IMPRESSION: This is an abnormal EEG due to: 1. Background disorganization with mild slowing, consistent with generalized cerebral dysfunction as can be seen with encephalopathy. 2. A near constant focal slowing in the left temporal region, suggestive of focal cortical neuronal dysfunction, which may suggest underlying structural abnormality. 3. Intermittent sharp appearing waves involving the left parietal region, suggestive of focal cortical irritability. No electrographic seizure was recorded. 4. Clinical correlation is recommended. MMODL / IJN: [id number] / MTDD
--- NOTE | 2022-04-25 14:49 | P.DS ---
Providers Date of admission: 04/22/22 16:46 Expected date of discharge: 04/25/22 Attending physician: Jake Gamino Consults: 04/22/22 16:46 Consult Physician Urgent Consulting Provider: Cecilia Sherman Consult Reason/Comments: Lung cancer with metastatic disease to the brain Do you want consulting provider notified?: Yes Consult Physician Urgent Consulting Provider: Jeremy Zelaya Consult Reason/Comments: Metastatic brain lesions Do you want consulting provider notified?: Yes 04/22/22 17:11 Consult Physician Urgent Consulting Provider: Ronni San Consult Reason/Comments: Metastatic brain lesions Do you want consulting provider notified?: Yes 04/25/22 09:18 Consult Physician Routine Consulting Provider: Anais Sandoval Consult Reason/Comments: eval for biopsy of lung mass, please Do you want consulting provider notified?: Yes Primary care physician: Maxx Arguello [facility] Course: Final diagnosis Metastatic brain lesions with vasogenic edema Altered mental status, likely encephalopathy related to brain mass, vasogenic edema Left lung mass likely primary Hypertension Chronic pain related to his cervical spinal stenosis and back pain DVT prophylaxis Full code Discharge disposition Patient is being transferred in a stable condition with guarded prognosis to [facility] in [place] . Patient has been accepted by Dr. Lopez neurology top lifter for neurosurgical evaluation at [facility]. Patient will follow-up with Dr. Lilly in the outpatient setting upon discharge. Patient is to also follow-up with oncology. Total time taken is greater than 35 minutes. Hospital course This is a 56-year-old male who was recently admitted with increasing altered mental status over the last few weeks and has been progressively getting worse. Patient does take Suboxone for chronic pain and smokes marijuana daily although patient had been more confused per sister who lives with him. Patient following with oncology in the outpatient setting and also has been evaluated by oncology along with radiation oncology here. Neurology initiated workup in the CT of the brain showed 2 large hypodense lesions in the bilateral parietal lobe Yvon measuring 4.9 cm with surrounding vasogenic edema. Patient was also started on high-dose steroids and continued on those at this time. MRI of the brain is suggestive of these lesions as well and patient was evaluated by neurology [facility] of these lesions of the brain. There is also a nodule noted in the lung which will require further workup as well. Patient undergoing EEG currently and consultations recommending tertiary transfer. Transfer was initiated and spoke with Dr. Lopez who is the accepting physician and Dr. Bai hospitalist. Case management following an ordered rapid Covid testing as there may be a bed later today. This was discussed with patient and is agreeable to the transfer. Currently no reports of chest pain, shortness of breath, or palpitations. Patient is afebrile. No reports of nausea or vomiting and patient is tolerating diet. Physical exam: Gen: This is a 56-year-old male awake, alert and oriented 3 HEENT: Head is atraumatic, normocephalic. Pupils equal, round. Sclerae is anicteric. NECK: Supple. No JVD. No lymphadenopathy. No thyromegaly. LUNGS: Clear to auscultation. No wheezes or rhonchi. No intercostal retractions. HEART: Regular rate and rhythm. No murmur. ABDOMEN: Soft. Bowel sounds are present. No masses. No tenderness. EXTREMITIES: No pedal edema. No calf tenderness. NEUROLOGICAL: Patient is awake, alert and oriented x3. Cranial nerves 2 through 12 are grossly intact. Please refer to medication reconciliation sheet for a list of medications. The impression and plan of care has been dictated by Cori Glover, Nurse Practitioner as directed. MD Yannick I have performed a history and examination and MDM of this patient, discussed the same with the dictator, and agree with the dictator's assessment and plan as written ,documented as a scribe. Based on total visit time, I have performed more than 50% of the visit. Patient Condition at Discharge: Stable Plan - Discharge Summary New Discharge Prescriptions: No Action buprenorphine HCL [Subutex] 1 tab PO TID Cyclobenzaprine [Flexeril] 1 tab PO BID PRN PRN Reason: Pain amLODIPine BES/OLMESARTAN MED [Mae 10-40 MG] 1 tab PO DAILY Discharge Medication List Cyclobenzaprine [Flexeril] 1 tab PO BID PRN 03/24/22 [History] buprenorphine HCL [Subutex] 1 tab PO TID 03/24/22 [History] amLODIPine BES/OLMESARTAN MED [Mae 10-40 MG] 1 tab PO DAILY 04/22/22 [History] Follow up Appointment(s)/Referral(s): Saundra Lilly MD [Primary Care Provider] - 1-2 days
--- NOTE | 2022-04-25 16:01 | P.PN ---
Subjective Progress Note Date: 04/25/22 Principal diagnosis: confusion, brain messes, lung mass In f/u pt is having EEG when seen. He reports feeling better then on admit, he is able to think a little more clearly, denies any unilateral deficits, NOVOA, dizziness, hemoptysis, SOB. Objective - Vital Signs Vital signs: Vital Signs Temp 98.2 F 04/25/22 11:20 Pulse 75 04/25/22 11:20 Resp 16 04/25/22 11:20 BP 157/80 04/25/22 11:20 Pulse Ox 98 04/25/22 11:20 FiO2 Intake & Output 04/24/22 04/25/22 04/25/22 18:59 06:59 18:59 Intake Total 500 Balance 500 Intake: Oral 500 Other: Voiding Method Toilet Toilet # Voids 2 3 - Constitutional General appearance: Present: cooperative, no acute distress, thin - EENT Eyes: Present: anicteric sclerae, EOMI (grossly) ENT: Present: hearing grossly normal - Respiratory Details: resp even and unlabored at rest - Cardiovascular Rhythm: regular Heart sounds: normal: S1, S2 Abnormal Heart Sounds: Absent: systolic murmur, diastolic murmur, rub, S3 Gallop, S4 Gallop, click, other - Peripheral edema leg Peripheral Edema: bilateral: None - Gastrointestinal General gastrointestinal: Present: normal bowel sounds, soft - Neurologic Neurologic: Present: CNII-XII intact (grossly) - Musculoskeletal Musculoskeletal: Present: strength equal bilaterally - Psychiatric Psychiatric: Present: A&O x's 3, appropriate affect, intact judgment & insight - Labs CBC & Chem 7: 04/23/22 06:01 04/25/22 05:36 Labs: Abnormal Lab Results - Last 24 Hours (Table) 04/24/22 04/24/22 04/25/22 Range/Units 17:08 20:09 05:36 Carbon Dioxide 28.2 H (20.0-27.5) mmol/L Anion Gap 9.80 L (10.00-18.00) mmol/L BUN/Creatinine Ratio 39.50 H (12.00-20.00) Ratio POC Glucose (mg/dL) 217 H 167 H (70-110) mg/dL 04/25/22 04/25/22 Range/Units 07:02 11:18 Carbon Dioxide (20.0-27.5) mmol/L Anion Gap (10.00-18.00) mmol/L BUN/Creatinine Ratio (12.00-20.00) Ratio POC Glucose (mg/dL) 143 H 145 H (70-110) mg/dL - Imaging and Cardiology CT scan - abdomen: report reviewed CT scan - chest: report reviewed CT Scan - head: report reviewed CT scan - pelvis: report reviewed MRI - head: report reviewed Assessment and Plan (1) Brain mass Current Visit: Yes Status: Acute Priority: High Code(s): G93.89 - OTHER SPECIFIED DISORDERS OF BRAIN SNOMED Code(s): 131397967 (2) Lung mass Current Visit: Yes Status: Acute Priority: High Code(s): R91.8 - OTHER NONSPECIFIC ABNORMAL FINDING OF LUNG FIELD SNOMED Code(s): 015808013 Plan: Dr. Rahman reviewed CT CAP and MRI of the brain results with pt. Large lung mass, no other mets, brain has the 2 large masses also smaller one cerebellum and possibly some smaller scattered lesions. Concerns for lung primary, mets to brain vs 2 primary malignancies or are some of the brain lesions cystic? Pulm was consulted for biopsy of lung mass. discussed Case with Attending. Pulm recommends transfer to teritary facility for possible brain biopsy. Cont dex 4mg Q 6 hours for neurological symptoms. HIV testing attests: I have seen pt, performed H&P, developed impression and plan of care. Discussed with dictator. Agree with dictation, documented as a scribe.
[2022-04-25 17:16] LABS: Glucose,Whole Blood 173 mg/dL (70-110)
[2022-04-25 19:39] VITALS: RESP 18
[2022-04-25 20:20] LABS: Glucose,Whole Blood 216 mg/dL (70-110)
[2022-04-25 23:12] VITALS: BP 150/86; PULSE 73; TEMP 98.1
[2022-04-26 02:08] LABS: HIV 2 AB Non-Reactive (Non-Reactive); HIV AB P24 Non-Reactive (Non-Reactive); HIV P24 AG Non-Reactive (Non-Reactive)
--- NOTE | 2022-04-26 08:03 | P.PN ---
Subjective Progress Note Date: 04/25/22 Patient initially seen by Dr. Ronni San. Please refer to his note for details. Patient is a 56-year-old male with brain metastasis. Primary source seems lung. Patient is currently on dexamethasone. Patient has been placed on Keppra 500 mg twice a day empirically. Patient and his both are present today. He denies any headache, and any numbness tingling or weakness. He has been accepted at [facility], waiting bed. Patient is sitting comfortably in the bed. Objective - Vital Signs Vital signs: Vital Signs Temp 98.2 F 04/25/22 11:20 Pulse 75 04/25/22 11:20 Resp 16 04/25/22 11:20 BP 157/80 04/25/22 11:20 Pulse Ox 98 04/25/22 15:26 FiO2 Intake & Output 04/25/22 04/25/22 04/26/22 06:59 18:59 06:59 Intake Total 500 Balance 500 Intake: Oral 500 Other: Voiding Method Toilet # Voids 3 4 - Exam Patient is alert and awake in no distress. Patient appears slightly cachectic. Affect is normal. Speech and language functions appears normal. Patient states is March and the year is 1964. I told him that he was born in 1964, and what year is it. He still says 1964. Then he said April 2020. He thinks he is in [facility]. He knows name of the current president. Cranial nerves are significant for very dense right homonymous hemianopia with complete neglect of the right side. Face is symmetric and tongue protrudes to midline. Pupils are equal, round and reactive to light. On muscle strength testing there is no pronator drift and the strength is normal in arms and legs. Sensory touch is equal with no neglect on double simultaneous stimulation. Cerebellar function shows no ataxia for [id number] testing. - Labs CBC & Chem 7: 04/23/22 06:01 04/25/22 05:36 Labs: Abnormal Lab Results - Last 24 Hours (Table) 04/24/22 04/25/22 04/25/22 Range/Units 20:09 05:36 07:02 Carbon Dioxide 28.2 H (20.0-27.5) mmol/L Anion Gap 9.80 L (10.00-18.00) mmol/L BUN/Creatinine Ratio 39.50 H (12.00-20.00) Ratio POC Glucose (mg/dL) 167 H 143 H (70-110) mg/dL 04/25/22 04/25/22 Range/Units 11:18 17:15 Carbon Dioxide (20.0-27.5) mmol/L Anion Gap (10.00-18.00) mmol/L BUN/Creatinine Ratio (12.00-20.00) Ratio POC Glucose (mg/dL) 145 H 173 H (70-110) mg/dL Assessment and Plan Assessment: This is a 56-year-old gentleman who presented that because of three-week visual disturbance and confusion. CXR showed left lung mass. CT of the head shows bilateral mass over predominately parietal but also occipital region Brain metastases (over predominately over bilateral parietal (left > right) and also involving left parietal/occipital and left cerebellar). Possible primary source is lung. Vasogenic edema due to above. Right homonymous hemianopsia Encephalopathy due to brain mets. Rule out seizure. Since has brain mass that can cause brain irritability. Left lung mass Cachectic Tobacco use smokes 1.5 pack a day since age of 20 Plan: Patient is on dexamethasone 4 mg IV every 6 hours which I agree. Currently the patient is on IV Protonix 40 mg twice a day. Defer sugar control to the primary team EEG was performed today. It revealed background disorganization with mild slowing, consistent with generalized cerebral dysfunction as can be seen with encephalopathy. A near constant focal slowing in the left temporal region, suggestive of focal cortical neuronal dysfunction, may suggest underlying structural abnormality. Intermittent sharp-appearing waves involving the left parietal region, suggestive of focal cortical irritability. No electrographic seizure was recorded. Continue Keppra 500 mg every 12 hours for seizure prophylaxis. Recommended not to wean off Keppra at this time. MRI of the brain with and without contrast revealed multiple lesions scattered throughout the brain, the largest of which are predominantly cystic in the bilateral parietal regions at the mo-white junction suggestive of metastatic disease. Additional metastatic focus within the left cerebellar cortex along with multiple inversion recovery signal abnormalities near the mo-white junctions of the cerebral hemisphere suspicious for additional sites of meta static disease. I personally reviewed MRI, I agree with the findings. Oncology team is on board. Patient accepted to [facility]. Radiation oncology team is on board. Report of the CT of the chest, abdomen and pelvis reviewed. Show 2.3 cm pulmonary nodule within the superior segment of the left upper lobe concerning for primary lung malignancy. Left hilar 1.7 cm large lymph node concerning for metastatic disease. Mild to moderate emphysematous changes. Patient to be evaluated by neurosurgeon at [facility]. Patient was counseled on tobacco cessation. Neurologically clear for transfer to [facility].
== END 2022-04-25 23:15 | disposition other institution (70) | DRG 54 ==
LOC: EC 14:08 → 5NMEDONC 16:46
PROVIDERS: ADMIT Hospitalist; ATTEND Hospitalist
PROC: 4A10X4Z Monitoring of Central Nervous Electrical Activity, External Approach (ICD-10-PCS; principal; 2022-04-25)
DX: C79.31 Secondary malignant neoplasm of brain (principal); G93.41 Metabolic encephalopathy; G93.6 Cerebral edema; Z68.1 Body mass index [BMI] 19.9 or less, adult; R64 Cachexia; C34.2 Malignant neoplasm of middle lobe, bronchus or lung; T38.0X5A Adverse effect of glucocorticoids and synthetic analogues, initial encounter; R73.9 Hyperglycemia, unspecified; H53.461 Homonymous bilateral field defects, right side; R51.9 Headache, unspecified; I10 Essential (primary) hypertension; G89.4 Chronic pain syndrome; G89.29 Other chronic pain; G31.89 Other specified degenerative diseases of nervous system; Z71.6 Tobacco abuse counseling; M48.02 Spinal stenosis, cervical region; M54.9 Dorsalgia, unspecified; F17.210 Nicotine dependence, cigarettes, uncomplicated; Z98.1 Arthrodesis status; Z88.1 Allergy status to other antibiotic agents; Z79.899 Other long term (current) drug therapy; Z82.49 Family history of ischemic heart disease and other diseases of the circulatory system; Z20.822 Contact with and (suspected) exposure to COVID-19; Z80.1 Family history of malignant neoplasm of trachea, bronchus and lung; Z83.3 Family history of diabetes mellitus; Z90.49 Acquired absence of other specified parts of digestive tract; Z93.3 Colostomy status
CPT/HCPCS: 36415; 70450; 70553; 71046; 71260; 74177; 80048; 80053; 80306; 84484; 85025; 85027; 85610; 85730; 87390; 87635; 93005; 94760; 95816; 96374; 99285

== ENCOUNTER → 2022-09-19 | Outpatient (CLI) | payer BC ==
[2022-09-19 11:28] LABS: African American GFR (CKD) >90 (>60 ml/min/1.73 sqM); Blood Urea Nitrogen 34 mg/dL (9-20); Non-African American GFR(CKD) >90 (>60 ml/min/1.73 sqM)
--- NOTE | 2022-09-19 17:16 | CT ---
EXAMINATION TYPE: CT ChestAbdPelvis w con DATE OF EXAM: 09/19/2022 INDICATION: Lung cancer. COMPARISON: 04/24/2022 CT DLP: 613.4 mGycm CONTRAST: Performed with Oral Contrast and with IV Contrast, patient injected with 70ml mL of Isovue 300. TECHNIQUE: Axial images at 5 mm thick sections. Reconstructed images in the coronal plane. Delayed images through the kidneys. FINDINGS: CT CHEST: Portion of the thyroid visualized is normal. Emphysematous changes are present. There is a spiculated mass in the posterior lateral left mid lung measuring 1.4 cm. This is diminishe d from 2.3 cm. Streak opacities within the lingula present previously and stable. No enlarged mediastinal or hilar adenopathy is evident. The ascending aorta diameter at the level of the main pulmonary artery is 4.1 cm. The main pulmonary artery diameter at the bifurcation is 2.[address] ABDOMEN: Liver: Scattered cysts are within the liver. Spleen: Normal Pancreas: Normal Adrenal glands: The adrenal glands are normal. Gallbladder: Normal Kidneys: No masses are evident. No hydronephrosis is present. No cysts are present. Delayed images were obtained through the kidneys, which remain unremarkable. Aorta: Normal Inferior vena cava: Normal. CT PELVIS: Loops of bowel within the abdomen and pelvis are normal. There are loops of bowel which are incom pletely distended or lack oral contrast limiting their evaluation. Appendix: Not identified. No dilated tubular structure or inflammatory changes are evident. Urinary bladder: Normal. Genitourinary structures: Prostate appears unremarkable. Osseous structures: No suspicious lytic or sclerotic lesions. IMPRESSIONS: 1. Diminished size of the spiculated nodule within the left lung currently measuring 1.4 cm. 2. No suspicious changes to suggest metastatic disease.
== END | disposition home or self-care (01) ==
LOC: RADCTMAIN 09:58
PROVIDERS: ATTEND Internal Medicine
DX: C34.92 Malignant neoplasm of unspecified part of left bronchus or lung (principal)
CPT/HCPCS: 82565; 84520; 71260; 74177; 36415; Q9967

== ENCOUNTER → 2023-01-02 | Outpatient (CLI) | payer BC ==
--- NOTE | 2023-01-02 15:19 | MR ---
EXAMINATION TYPE: MR brain wo/w con DATE OF EXAM: 01/02/2023 COMPARISON: MRI 11/29/2022, CT 11/26/2022 HISTORY: Lung cancer, seizure Contrast: None Technique: Multiplanar multiecho imaging on 1.5 Tasha magnet was performed through the brain. FINDINGS: Within the left occipital lobe there is a 3.0 x 2.4 cm hyperintense area with adjacent vasogenic lazaro a. Within the right parietal-occipital centrum semiovale there is a 1.5 x 3.0 cm hyperintensity with some minimal rim of hypointensity. Minimal vasogenic edema within the right parietal occipital lesion . Findings can be compatible with the reported prior lesions removed There are multiple hyperintensities on T2 and inversion recovery weighted sequences within the deep w stuart matter likely related to periventricular white matter ischemic type changes. Ventricles and sulci appear appropriate for the patient's age. Following contrast administration mini mal peripheral enhancement is evident. No mass effect is evident. Ventricles and sulci appear appropr iate for the patient's age. Significant mass effect adjacent to the lesions is not identified. IMPRESSION: 1. OLD RIGHT PARIETAL-OCCIPITAL EXAM LEFT OCCIPITAL LOBE LESIONS, STABLE FROM COMPARISON
== END | disposition home or self-care (01) ==
LOC: RADMRIMAIN 13:48
PROVIDERS: ATTEND Internal Medicine
DX: C34.91 Malignant neoplasm of unspecified part of right bronchus or lung (principal); Z03.89 Encounter for observation for other suspected diseases and conditions ruled out
CPT/HCPCS: 70553; A9585

== ENCOUNTER → 2023-01-06 | Outpatient (CLI) | payer BC ==
[2023-01-06 12:48] LABS: African American GFR (CKD) >90 (>60 ml/min/1.73 sqM); Blood Urea Nitrogen 30 mg/dL (9-20); Non-African American GFR(CKD) >90 (>60 ml/min/1.73 sqM)
--- NOTE | 2023-01-06 14:49 | CT ---
EXAMINATION TYPE: CT ChestAbdPelvis w con DATE OF EXAM: 01/06/2023 COMPARISON: Prior CT September 19, 2022 and older studies HISTORY: Lung cancer progress study. CT DLP: 541.9 mGycm. Automated Exposure Control for Dose Reduction was Utilized. CONTRAST: CT scan of the thorax, abdomen and pelvis is performed with oral and with IV Contrast, patient inject ed with 100 mL of Isovue 300. FINDINGS: LUNGS: Mild to moderate underlying emphysematous changes are redemonstrated. There is fairly stable 1 .2 x 1.2 cm spiculated nodule in the left midlung posteriorly axial image 29. Persistent irregular sc arring along the left lung fissure anterior inferior to this extends into the lingula. MEDIASTINUM: There are no greater than 1 cm hilar or mediastinal lymph nodes. No cardiomegaly or pe ricardial effusion is seen. LIVER/GB: Subcentimeter hypodense lesions throughout the liver are redemonstrated. Mild to moderate e xtrahepatic biliary dilatation redemonstrated. No significant change from prior. PANCREAS: No significant abnormality is seen. SPLEEN: No significant abnormality is seen. ADRENALS: No significant abnormality is seen. KIDNEYS: No significant abnormality is seen. BOWEL: Surgical sutures sigmoid colon with pelvis redemonstrated. The oral Contrast does not reach colonic level making evaluation of distal bowel suboptimal. No suspicious sma ll or large bowel dilatation. GENITAL ORGANS: Prostate gland upper limits of normal in size. Scattered left-sided tiny pelvic phleb oliths LYMPH NODES: No greater than 1cm abdominal or pelvic lymph nodes are appreciated. OSSEOUS STRUCTURES: Posterior to vertical rods and screws L4-S1 level bilaterally are present. Multil evel vacuum disc phenomenon and moderate multilevel disc space narrowing L2-L3 through the L4-L5 leve ls. S-shaped scoliosis. OTHER: No significant additional abnormality is seen. IMPRESSION: Stable 1.2 cm spiculated left mid lung nodule or neoplasm. No new masses or adenopathy se en.
== END | disposition home or self-care (01) ==
LOC: RADCTMAIN 12:01
PROVIDERS: ATTEND Internal Medicine
DX: C34.90 Malignant neoplasm of unspecified part of unspecified bronchus or lung (principal)
CPT/HCPCS: 82565; 84520; 71260; 74177; 36415; Q9967

== ENCOUNTER → 2023-04-03 | Outpatient (CLI) | payer BC ==
[2023-04-03 10:43] LABS: African American GFR (CKD) >90 (>60 ml/min/1.73 sqM); Blood Urea Nitrogen 21 mg/dL (9-20); Non-African American GFR(CKD) >90 (>60 ml/min/1.73 sqM)
--- NOTE | 2023-04-03 11:42 | CT ---
EXAMINATION TYPE: CT ChestAbdPelvis w con DATE OF EXAM: 04/03/2023 COMPARISON: 723 HISTORY: Small cell lung CA CT DLP: 1251 mGycm CONTRAST: CT scan of the chest, abdomen and pelvis is performed with Oral Contrast and with IV Contrast, patien t injected with 100 mL of Isovue 300. CT Chest: LUNGS: Spiculated nodule left lower lobe measures 1 cm this is 1.2 cm previously. A 1.4 cm pleural-ba sed nodule right lower lobe image 266 sequence 4. Additional nodular density right lower lobe image 2 75 sequence 4. Groundglass nodule in the left lower lobe measuring 7.3 mm image 262 and regular. Righ t middle lobe pleural-based nodule measuring 6.3 mm image 26 sequence 4. 5 mm pleural-based nodule ri ght lower lobe image 177 6 weeks fluid. Groundglass nodular densities anteriorly measuring 7 mm and 6 .5 mm image 136 sequence 4. A few areas of scattered pulmonary fibrosis and clinical thickening. MEDIASTINUM: Thoracic aorta is of normal caliber. The heart is not enlarged. No evidence for media stinal mass or adenopathy. HILAR STRUCTURES: No evidence for mass. No hilar adenopathy is appreciated. OTHER: No significant abnormality. CONTRAST CT ABDOMEN AND PELVIS FINDINGS: LIVER/GB: No calcified gallstones. Redemonstration of scattered hepatic cysts. Within the anterior segment of the right hepatic adjacent to the caudate lobe convexity 0.8 cm area of altered echogenici ty. Underlying mass is difficult to exclude. Consider ultrasound or MRI correlation Biliary tree is o f normal caliber. PANCREAS: No inflammation. No distinct mass. SPLEEN: No splenic enlargement. No lesion seen. ADRENALS: No nodule. No thickening. KIDNEYS/BLADDER: No hydronephrosis. No nephrolithiasis. No disctinct renal mass. BOWEL: Normal appendix. Normal bowel caliber. No inflammation. GENITAL ORGANS: No gross abnormality. LYMPH NODES: No greater than 1cm abdominal or pelvic lymph nodes are appreciated. AORTA: No significant abnormality. OSSEOUS STRUCTURES: Postoperative changes lumbar spine. OTHER: No significant additional abnormality is seen. IMPRESSION: 1. Spiculated nodule left lower lobe seen previously persists although slightly small in size. As not ed there are multiple new nodules which are nonspecific and metastatic disease is not excluded. 2. New areas of subpleural fibrosis and pleural thickening could reflect postradiation therapy change s if there is such a history. 3. Altered area of attenuation within the anterior segment right hepatic lobe. Underlying mass is not excluded. Consider MRI and/or ultrasound correlation. Several scattered cysts are redemonstrated.
--- NOTE | 2023-04-05 07:37 | MR ---
EXAMINATION TYPE: MR brain wo/w con DATE OF EXAM: 04/03/2023 COMPARISON: 01/02/2023 HISTORY: Follow up, history of lung and brain cancer. History of brain surgery. CONTRAST: Performed utilizing 6.5 mL intravenous Gadavist gadolinium contrast. TECHNIQUE: Multiplanar, multiecho imaging on a 3.0 Tasha magnet is performed through the brain. Stud y is performed within 24 hours of arrival to the hospital. The craniovertebral junction is normal. The pituitary is normal. Diffusion-weighted imaging is performed. No abnormal hyperintensity is present to suggest an acute i ntracranial infarct or acute ischemic change. Subtle hypodensities within the lateral left cerebellum which is hyperintense on T2 and inversion rec overy weighted sequences could be a small focal white matter ischemic change. No enhancement is evide nt. This was present previously and appears stable. There is a hyperintense slightly heterogenous area with adjacent vasogenic edema in the left lateral occipital lobe. This measures 3.0 x 2.5 cm, previous measurement 2.9 x 2.5 cm, within measurement err or and stable. There is a 3.0 x 1.4 cm hyperintense heterogenous area within the posterior left centrum semiovale wi th mild adjacent vasogenic edema. Previous measurement 3.0 x 1.6 cm, no interval growth evident. The vasogenic edema adjacent to these lesions appears stable from comparison. There is some extension into the posterior left corpus callosum, stable from comparison. There are multiple subcortical and deep white matter punctate hyperintensities bilaterally. Different ial diagnosis includes microvascular ischemic change, gliosis or other etiologies such as migraine he adaches vasculitis, Lyme disease, multiple sclerosis. Metastasis is felt to be less likely with no en hancement identified. Ventricles and sulci are appropriate for the patient age. IMPRESSIONS: 1. Stable appearance left occipital and right parietal lobe lesions. No progression in size is eviden t. 2. Stable appearing multiple scattered deep white matter changes.
== END | disposition home or self-care (01) ==
LOC: RADCTMAIN 09:27
PROVIDERS: ATTEND Internal Medicine
DX: C34.92 Malignant neoplasm of unspecified part of left bronchus or lung (principal); J84.10 Pulmonary fibrosis, unspecified; R91.8 Other nonspecific abnormal finding of lung field
CPT/HCPCS: 82565; 84520; 71260; 74177; 36415; 70553; Q9967; A9585

== ENCOUNTER → 2023-05-20 | Outpatient (CLI) | payer BC ==
--- NOTE | 2023-05-21 11:04 | MR ---
EXAMINATION TYPE: MR liver wo/w con DATE OF EXAM: 05/20/2023 11:53 AM INDICATION: Patient age:Male; 57 years old; Reason for study: C34.90 LUNG CANCER. No prior, f/u to spot seen on liver history of lung CA, brain C A COMPARISON: CT scan abdomen from 04/03/2023. TECHNIQUE: Multiplanar multi-sequence imaging was performed without contrast. Post contrast imaging was performed. Post IV contrast subtraction images were also submitted for review. IV Contrast: 6.5ml cc Gadavist FINDINGS: LOWER CHEST: No gross irregularity. ABDOMEN Liver: Scattered high T2 low T1 signal cysts are seen throughout the liver parenchyma which is felt t o correlate with prior CT finding concerning up to 19 mm series 801 image 43 ducts. No postcontrast e nhancement. Cysts some of these have thin septations. Gallbladder and Bile ducts: Dilation of the extrahepatic and intrahepatic Pancreas: Unremarkable. Spleen: Unremarkable. Adrenal glands: Unremarkable. Kidneys: Unremarkable. Stomach and Bowel: Unremarkable as visualized. Peritoneum: No evidence of pneumoperitoneum or free fluid. Vasculature: Unremarkable. No aortic aneurysm. Musculoskeletal: The osseous structures appear intact. Postsurgical changes with fixation hardware an d susceptibility artifact. Lymph Nodes: No gross evidence for lymphadenopathy. Abdominal wall: Unremarkable. IMPRESSION: 1. Finding on prior CT are felt to correlate with multiple and mildly complex appearing hepatic cyst s. No suspicious postcontrast enhancement. 2. Mild central intrahepatic and extrahepatic biliary dilation similar back to 09/19/2022 CT.
== END | disposition home or self-care (01) ==
LOC: RADMRIMAIN 10:53
PROVIDERS: ATTEND Internal Medicine
DX: C34.90 Malignant neoplasm of unspecified part of unspecified bronchus or lung (principal); K83.8 Other specified diseases of biliary tract; K76.89 Other specified diseases of liver
CPT/HCPCS: 74183; A9585

== ENCOUNTER → 2023-07-06 | Outpatient (CLI) | payer BC ==
--- NOTE | 2023-07-06 11:35 | MR ---
EXAMINATION TYPE: MR brain wo/w con DATE OF EXAM: 07/06/2023 COMPARISON: 04/03/2023 HISTORY: F/U post cancer treatment TECHNIQUE: Multiplanar, multisequence images of the brain and brainstem is performed without and with IV contras t, utilizing 7 mL intravenous Gadavist . FINDINGS: Diffusion weighted images demonstrate no evidence of a recent infarct or other diffusion ab normality. Moderate generalized degenerative change. There is diffuse focal areas of nonspecific white matter ch anges most typical remote white matter ischemia. There are again noted to be lesions within the left parietal occipital junction and right parietal lo bes are again seen and are stable in size and shape relative the prior exam measuring approximately 2 .9 x 2.1 cm on the left. A right parietal resection cavity measures 2.5 x 1.4 cm. Both of heterogeneo us signal likely representing previous hemorrhagic component. Peripheral areas of enhancement are lik brad postsurgical but stable. Cerebellar tonsils are low-lying position measuring 2 mm below the foramen magnum stable from prior e xam The craniocervical junction appears within normal limits. Post contrast images demonstrate no abnorm al enhancement. The dural venous sinuses appear patent. Changes of chronic sinusitis and the globes a re intact. IMPRESSION: 1. Stable appearance of the left parieto-occipital and right parietal lobe lesions unchanged in appea eliezer prior exam. No new lesions. 2. Stable degenerative and remote ischemic white matter change.
== END | disposition home or self-care (01) ==
LOC: RADMRIMAIN 10:34
PROVIDERS: ATTEND Internal Medicine
DX: C34.90 Malignant neoplasm of unspecified part of unspecified bronchus or lung (principal); I67.82 Cerebral ischemia; G93.89 Other specified disorders of brain
CPT/HCPCS: 70553; A9585

== ENCOUNTER → 2023-07-14 | Outpatient (CLI) | payer BC ==
[2023-07-14 10:32] LABS: African American GFR (CKD) >90 (>60 ml/min/1.73 sqM); Blood Urea Nitrogen 20 mg/dL (9-20); Non-African American GFR(CKD) >90 (>60 ml/min/1.73 sqM)
--- NOTE | 2023-07-14 14:44 | CT ---
EXAMINATION TYPE: CT ChestAbdPelvis w con DATE OF EXAM: 07/14/2023 COMPARISON: 04/20/2023 HISTORY: lung ca CT DLP: 696.4 mGycm Automated exposure control for dose reduction was used. CONTRAST: CT scan of the chest, abdomen and pelvis is performed with Oral Contrast and with IV Contrast, patien t injected with 100 mL of Isovue 300. FINDINGS: CT chest: There are marked emphysematous changes.. The spiculated mass in the left upper lobe posteriorly has resolved but there are marked interstitial changes in this region which are not appreciated previously. In addition there is significant focal pleural thickening in the adjacent pleura. The multiple nodules and groundglass density seen in the right lung and in the lingula have cleared i n the interval. There is no pleural effusion or pneumothorax. There is a fusiform aneurysm of ascending thoracic aorta which measures 4.6 cm. There is no mediastin al, hilar or axillary adenopathy. No focal osseous lesions are seen. CT abdomen and pelvis Scattered small hypodensities in the liver to the prior study are stable. There is no organomegaly or focal mass of the pancreas, spleen or adrenal glands. The gallbladder is normal is no gallstones. There is no biliary ductal dilatation. Caliber the abdominal aorta is normal is no retroperitoneal adenopathy or hemorrhage. There is no solid renal mass or hydronephrosis. The bowel loops are normal in caliber and there is no dilatation or obstruction. There is no free int raperitoneal air or fluid. There is no pelvic mass, free fluid, abscess or adenopathy. There are postsurgical changes of lumbar fusion but no focal osseous lesions. IMPRESSION: 1. Spiculated left upper lobe mass has resolved. In its place there is diffuse interstitial density a nd adjacent pleural thickening possibly secondary to radiation changes. 2. Resolution of the the previously identified groundglass densities and nodules seen on the prior st udy within the right lung and angular. 3. Aneurysmal dilatation of ascending thoracic aorta which measures 4.6 cm 4. Stable hypodensities within the liver most likely representing cysts or benign hemangiomas. 5. No definite metastatic disease to the abdomen or pelvis.
== END | disposition home or self-care (01) ==
LOC: RADCTMAIN 09:36
PROVIDERS: ATTEND Internal Medicine
DX: C34.90 Malignant neoplasm of unspecified part of unspecified bronchus or lung (principal); I48.91 Unspecified atrial fibrillation; I71.21 Aneurysm of the ascending aorta, without rupture; J94.8 Other specified pleural conditions
CPT/HCPCS: 82565; 84520; 71260; 74177; 36415; Q9967

== ENCOUNTER → 2023-10-23 | Outpatient (CLI) | payer BC ==
[2023-10-23 13:01] LABS: African American GFR (CKD) >90 (>60 ml/min/1.73 sqM); Blood Urea Nitrogen 30 mg/dL (9-20); Non-African American GFR(CKD) >90 (>60 ml/min/1.73 sqM)
--- NOTE | 2023-10-23 14:52 | CT ---
EXAMINATION TYPE: CT ChestAbdPelvis w con DATE OF EXAM: 10/23/2023 INDICATION: hx lung ca, routine follow up observe for mets COMPARISON: 07/14/2023 CT DLP: 668.40 mGycm CONTRAST: Performed with Oral Contrast and with IV Contrast, patient injected with 100 mL of Isovue 300. TECHNIQUE: Axial images at 5 mm thick sections. Reconstructed images in the coronal plane. Delayed images through the kidneys. FINDINGS: CT CHEST: Portion of the thyroid visualized is normal. There is a triangular density within the posterior lateral left upper lobe. This area was present pre viously and appears similar. Mild emphysematous changes are present. No enlarged mediastinal or hilar adenopathy is evident. The ascending aorta diameter at the level of the main pulmonary artery is 4.5 cm. The main pulmonary artery diameter at the bifurcation is 3.[address] ABDOMEN: Liver: Hepatic cysts are present. Spleen: Normal Pancreas: Normal Adrenal glands: The adrenal glands are normal. Gallbladder: Normal Kidneys: No masses are evident. No hydronephrosis is present. No cysts are present. Delayed images were obtained through the kidneys, which remain unremarkable. Aorta: Vascular calcification is within the aorta. Inferior vena cava: Normal. CT PELVIS: Loops of bowel within the abdomen and pelvis are normal. Fecal debris is within the ascending colon e xtends into the transverse colon. Descending colon appears normal. There are loops of bowel which are incompletely distended or lack oral contrast limiting their evaluation. Appendix: Normal as visualized. Urinary bladder: Decompressed with limited evaluation Genitourinary structures: Prostate appears unremarkable. Osseous structures: No suspicious lytic or sclerotic lesions. IMPRESSION: 1. Stable appearance of left upper lobe density. Finding can be related to patient's prior lung cance r. 2. No suspicious changes to suggest metastatic disease. 3. Aneurysmal dilatation of the ascending thoracic aorta measuring 4.5 cm.
== END | disposition home or self-care (01) ==
LOC: RADCTMAIN 11:27
PROVIDERS: ATTEND Internal Medicine
DX: I71.21 Aneurysm of the ascending aorta, without rupture (principal); C34.90 Malignant neoplasm of unspecified part of unspecified bronchus or lung; J98.4 Other disorders of lung; I48.91 Unspecified atrial fibrillation
CPT/HCPCS: 82565; 84520; 71260; 74177; 36415; Q9967

== ENCOUNTER 2023-11-07 10:47 | Inpatient (IN) | payer BC ==
[2023-11-07] MEDS: LORazepam 2 MG/ML INJ IV STA (11:21)
[2023-11-07 11:22] LABS: Glucose,Whole Blood 172 mg/dL (70-110)
[2023-11-07] MEDS: SODIUM CHLORIDE 0.9% 500 ML 500 ML IV STA (11:22)
--- NOTE | 2023-11-07 11:33 | ED ---
General Adult HPI - General Stated complaint: AMS Time Seen by Provider: 11/07/23 11:01 Source: patient, RN notes reviewed, old records reviewed Mode of arrival: ambulatory Limitations: altered mental status - History of Present Illness Initial comments: 58-year-old male history of metastatic lung cancer with known brain metastases presents with altered mental status and seizure activity. Patient history is obtained from the sister who was at bedside. She states he does have previous seizure history and is on oxcarbazepine. She believes he has been compliant. She states that he had several seizures in the past with very prolonged postictal phase. - Related Data Home Medications Medication Instructions Recorded Confirmed buprenorphine HCL [Subutex] 8 mg SL TID PRN 03/24/22 04/18/23 Folic Acid 1 mg PO DAILY 11/26/22 04/18/23 Pantoprazole [Protonix] 40 mg PO DAILY 11/26/22 04/18/23 tiZANidine [Zanaflex] 4 mg PO HS PRN 04/18/23 04/18/23 Previous Rx's Medication Instructions Recorded levETIRAcetam [Keppra] 750 mg PO BID 30 Days #60 tab 11/30/22 Albuterol Inhaler [Ventolin Hfa 1 puff INHALATION QID 30 Days #8 gm 04/25/23 Inhaler] Amoxic-Pot Clav 875-125Mg 1 tab PO BID 7 Days #14 tab 04/25/23 [Augmentin 875-125] Budesonide-Formot 160-4.5 Mcg 2 puff INHALATION BID 30 Days #1 04/25/23 [Symbicort 160-4.5 Mcg Inhaler] each Diltiazem Cd [Cardizem CD] 180 mg PO DAILY #30 cap 04/25/23 Metoprolol Succinate (ER) [Toprol 100 mg PO BID #60 tab 04/25/23 XL] Nicotine 21Mg/24Hr Patch [Habitrol] 1 patch TRANSDERM DAILY #30 patch 04/25/23 QUEtiapine [SEROquel] 50 mg PO BID #60 tab 04/25/23 guaiFENesin SYRUP 100MG/5ML 200 mg PO Q6HR PRN #120 ml 04/25/23 [Robitussin] Allergies Allergy/AdvReac Type Severity Reaction Status Date / Time cephalexin [From Keflex] Allergy Confusion, Verified 11/07/23 11:28 dizziness and syncope Review of Systems ROS Statement: Those systems with pertinent positive or pertinent negative responses have been documented in the HPI. ROS Other: All systems not noted in ROS Statement are negative. Past Medical History Past Medical History: Atrial Fibrillation, Hypertension, Seizure Disorder Additional Past Medical History / Comment(s): bowel obstruction, cervical spinal stenosis, lung cancer with brain metastases, seizure 11/26/22. History of Any Multi-Drug Resistant Organisms: None Reported Past Surgical History: Back Surgery Additional Past Surgical History / Comment(s): Colostomy and reverse colostomy, L4-L5 fusion, brain surgery Past Anesthesia/Blood Transfusion Reactions: No Reported Reaction Past Psychological History: No Psychological Hx Reported Smoking Status: Current every day smoker Past Alcohol Use History: None Reported Past Drug Use History: Marijuana - Past Family History Mother Family Medical History: Cancer, Hypertension Additional Family Medical History / Comment(s): lung CA Father Family Medical History: Diabetes Mellitus General Exam Limitations: no limitations General appearance: lethargic, in distress, other (Gaze deviation and postictal state) Neck exam: Present: normal inspection. Absent: tenderness Respiratory exam: Present: normal lung sounds bilaterally. Absent: respiratory distress Cardiovascular Exam: Present: regular rate, irregular rhythm GI/Abdominal exam: Present: soft. Absent: distended, tenderness, guarding Neurological exam: Absent: alert, oriented X3 Skin exam: Present: warm, dry, intact Course Vital Signs 11/07/23 11/07/23 11:24 12:25 Temperature 98 F Pulse Rate 58 L 56 L Respiratory 18 18 Rate Blood Pressure 141/99 107/71 O2 Sat by Pulse 92 L 96 Oximetry Medical Decision Making - Medical Decision Making Was pt. sent in by a medical professional or institution (, PA, HEAVY EQUIPMENT RENTAL MANAGER, urgent care, hospital, or intermediate...) When possible be specific @ -No Did you speak to anyone other than the patient for history (EMS, parent, family, police, friend...)? What history was obtained from this source @ -[History is obtained predominantly from the sister who is familiar with the patient's medical history. Did you review nursing and triage notes (agree or disagree)? Why? @ -I reviewed and agree with nursing and triage notes Were old charts reviewed (outside hosp., previous admission, EMS record, old EKG, old radiological studies, urgent care reports/EKG's, intermediate records)? Report findings @ -No old charts were reviewed Differential Diagnosis (chest pain, altered mental status, abdominal pain women, abdominal pain men, vaginal bleeding, weakness, fever, dyspnea, syncope, headache, dizziness, GI bleed, back pain, seizure, CVA, palpatations, mental health, musculoskeletal)? @Differential Seizure: Recurrent seizure disorder, febrile seizure, alcohol withdrawal, stimulants, meningitis, encephalitis, intercranial hemorrhage, intracranial tumor, stroke, eclampsia, thyrotoxicosis, hypocalcemia, hyponatremia, hypernatremia, hypomagnesemia, psychogenic, this is not meant to be an all-inclusive list. EKG interpreted by me (3pts min.). @Atrial fibrillation rate of 56, QRS duration 130, QTc [address] segm ent elevation. X-rays interpreted by me (1pt min.). @ -None done CT interpreted by me (1pt min.). @CT brain showing chronic postsurgical changes without acute intracranial hemorrhage or mass effect. U/S interpreted by me (1pt. min.). @ -None done What testing was considered but not performed or refused? (CT, X-rays, U/S, labs)? Why? @ -None What meds were considered but not given or refused? Why? @ -None Did you discuss the management of the patient with other professionals (professionals i.e. , PA, HEAVY EQUIPMENT RENTAL MANAGER, lab, RT, psych nurse, healthcare social worker, top taper machine, teacher, custody officer, disease case manager rn)? Give summary @ -Dr. Del Rosario has been paged Was smoking cessation discussed for >3mins.? @ -No Was critical care preformed (if so, how long)? @ -No Were there social determinants of health that impacted care today? How? (Homelessness, low income, unemployed, alcoholism, drug addiction, transporta tion, low edu. Level, literacy, decrease access to med. care, halfway, rehab)? @ -No Was there de-escalation of care discussed even if they declined (Discuss DNR or withdrawal of care, Hospice)? DNR status @ -No What co-morbidities impacted this encounter? (DM, HTN, Smoking, COPD, CAD, Cancer, CVA, ARF, Chemo, Hep., AIDS, mental health diagnosis, sleep apnea, morbid obesity)? @ -Metastatic lung cancer with known brain metastases Was patient admitted / discharged? Hospital course, mention meds given and route, prescriptions, significant lab abnormalities, going to OR and other pertinent info. @ -[58-year-old male presenting with tonic-clonic seizure upon arrival. Patient does require Ativan and remains in a confused postictal state after termination of seizure activity. According to his sister he has had several episodes similar to this in the past which had a significantly prolonged p ostictal phase up to several days. The patient is in atrial fibrillation which is rate controlled. He has stable blood pressure. He will follow very simple commands and does respond to voice. He is protecting his airway. He will be admitted to his primary care provider Dr. Del Rosario with neurology on consult. Undiagnosed new problem with uncertain prognosis? @ -No Drug Therapy requiring intensive monitoring for toxicity (Heparin, Nitro, Insulin, Cardizem)? @ -No Were any procedures done? @ -No Diagnosis/symptom? @ -[Recurrent seizure, metastatic lung cancer, prolonged postictal state Acute, or Chronic, or Acute on Chronic? @ -Acute Uncomplicated (without systemic symptoms) or Complicated (systemic symptoms)? @ -[default Side effects of treatment? @ -No Exacerbation, Progression, or Severe Exacerbation? @ -No Poses a threat to life or bodily function? How? (Chest pain, [place], [place], pneumonia, PE, COPD, DKA, ARF, appy, cholecystitis, CVA, Diverticulitis, Homicidal, Suicidal, threat to staff... and all critical care pts) @ -[Yes, status epilepticus - Lab Data Result diagrams: 11/07/23 12:24 11/07/23 11:15 Lab Results 11/07/23 11/07/23 11/07/23 Range/Units 11:10 11:15 12:24 WBC 10.7 H (3.8-10.6) k/uL RBC 3.89 L (4.30-5.90) m/uL Hgb 12.5 L (13.0-17.5) gm/dL Hct 38.1 L (39.0-53.0) % MCV 97.8 (80.0-100.0) fL MCH 32.1 (25.0-35.0) pg MCHC 32.8 (31.0-37.0) g/dL RDW 16.1 H (11.5-15.5) % Plt Count 336 (150-450) k/uL MPV 7.4 Neutrophils % 77 % Lymphocytes % 8 % Monocytes % 7 % Eosinophils % 6 % Basophils % 0 % Neutrophils # 8.3 H (1.3-7.7) k/uL Lymphocytes # 0.9 L (1.0-4.8) k/uL Monocytes # 0.7 (0-1.0) k/uL Eosinophils # 0.6 (0-0.7) k/uL Basophils # 0.0 (0-0.2) k/uL Hypochromasia Slight Poikilocytosis Slight Anisocytosis Slight Macrocytosis Slight Sodium 140 (137-145) mmol/L Potassium 3.5 (3.5-5.1) mmol/L Chloride 106 (98-107) mmol/L Carbon Dioxide 25 (22-30) mmol/L Anion Gap 9 mmol/L BUN 21 H (9-20) mg/dL Creatinine 0.83 (0.66-1.25) mg/dL Est GFR (CKD-EPI)AfAm >90 (>60 ml/min/1.73 sqM) Est GFR (CKD-EPI)NonAf >90 (>60 ml/min/1.73 sqM) Glucose 165 H (74-99) mg/dL POC Glucose (mg/dL) 172 H (70-110) mg/dL POC Glu Power Distribution Engineer ID Destiny Coffey Calcium 9.4 (8.4-10.2) mg/dL Magnesium 2.1 (1.6-2.3) mg/dL Total Bilirubin 0.5 (0.2-1.3) mg/dL AST 33 (17-59) U/L ALT 14 (4-49) U/L Alkaline Phosphatase 56 (38-126) U/L Total Protein 6.6 (6.3-8.2) g/dL Albumin 4.0 (3.5-5.0) g/dL Disposition Clinical Impression: Generalized seizure, Atrial fibrillation, Metastatic cancer to brain Disposition: ADMITTED IP TO THIS [facility] Condition: Stable Instructions (If sedation given, give patient instructions): Seizure/Epilepsy Discharge Instructions & Follow-Up Is patient prescribed a controlled substance at d/c from ED?: No Referrals: Manjeet Del Rosario MD [Primary Care Provider] - 1-2 days Time of Disposition: 12:56
--- NOTE | 2023-11-07 12:02 | CT ---
EXAMINATION TYPE: CT brain wo con CT DLP: 1153.4 mGycm, Automated exposure control for dose reduction was used. DATE OF EXAM: 11/07/2023 11:52 AM COMPARISON: 04/18/2023. CLINICAL INDICATION:Male, 58 years old with history of seizure activity, Seizure. TECHNIQUE: Brain: Axial CT images of the brain were obtained with coronal and sagittal reformats created and rev iewed. Contrast used: None. Oral contrast used: None. FINDINGS: Brain: Extra-axial spaces: No abnormal extra-axial fluid collections. Ventricular system: Within normal limits Cerebral parenchyma: Postsurgical changes predominantly in the posterior aspect involving the parieta l/occipital regions bilaterally. Encephalomalacia within these regions. No acute intraparenchymal hem orrhage or mass effect. The mo-white junction is well differentiated. Cerebellum: Unremarkable. Mass effect: No evidence of midline shift. Intracranial vasculature: Atherosclerotic calcifications of the intracranial vessels. Soft tissues: Normal. Calvarium/osseous structures: No depressed skull fracture. Craniotomy changes to the posterior calvar ium with fixation hardware. Paranasal sinuses and mastoid air cells: Mild scattered paranasal sinus disease. Visualized orbits: Orbital contents are intact. IMPRESSION: Postsurgical changes to the brain. Findings are not significantly changed from prior. No evidence for intracranial hemorrhage or acute/subacute CVA.
[2023-11-07 12:06] LABS: ALT 14 U/L (4-49); AST 33 U/L (17-59); African American GFR (CKD) >90 (>60 ml/min/1.73 sqM); Alkaline Phosphatase 56 U/L (38-126); Anion Gap 9 mmol/L; Blood Urea Nitrogen 21 mg/dL (9-20); Calcium 9.4 mg/dL (8.4-10.2); Carbon Dioxide 25 mmol/L (22-30); Chloride 106 mmol/L (98-107); Glucose 165 mg/dL (74-99); Magnesium 2.1 mg/dL (1.6-2.3); Non-African American GFR(CKD) >90 (>60 ml/min/1.73 sqM); Sodium 140 mmol/L (137-145); Total Bilirubin 0.5 mg/dL (0.2-1.3); Total Protein 6.6 g/dL (6.3-8.2)
[2023-11-07 12:24] LABS: Potassium 3.5 mmol/L (3.5-5.1)
[2023-11-07 12:28] LABS: Anisocytosis Slight; Basophils % (A) 0 %; Eosinophils # (A) 0.6 k/uL (0-0.7); Eosinophils % (A) 6 %; HCT 38.1 % (39.0-53.0); HGB 12.5 gm/dL (13.0-17.5); Hypochromasia Slight; Lymphocytes # (A) 0.9 k/uL (1.0-4.8); Lymphocytes % (A) 8 %; MCH 32.1 pg (25.0-35.0); MCHC 32.8 g/dL (31.0-37.0); MCV 97.8 fL (80.0-100.0); Macrocytosis Slight; Mean Platelet Volume 7.4; Monocytes # (A) 0.7 k/uL (0-1.0); Monocytes % (A) 7 %; Neutrophils # (A) 8.3 k/uL (1.3-7.7); Neutrophils % (A) 77 %; Platelet Count 336 k/uL (150-450); Poikilocytosis Slight; RBC 3.89 m/uL (4.30-5.90); RDW 16.1 % (11.5-15.5); WBC 10.7 k/uL (3.8-10.6)
[2023-11-07] MEDS ORDERED: NALOXONE 0.4 MG/ML 1 ML VIAL IV PRN (12:52)
[2023-11-07] MEDS ORDERED: LORazepam 2 MG/ML INJ IV PRN (12:53)
[2023-11-07] MEDS: SODIUM CHLORIDE 0.9% 1,000 ML IV SCH (13:09)
[2023-11-07] MEDS ORDERED: PATIENT'S OWN (Buprenorphine Hcl [Subutex] 8 MG Tab.Subl) PO PRN (15:43)
[2023-11-07] MEDS ORDERED: FUROSEMIDE 20 MG TAB PO PRN (15:43)
[2023-11-07] MEDS: levETIRAcetam IV 500 MG/5 ML VIAL IVP SCH (16:23)
[2023-11-07] MEDS ORDERED: OXcarbazepine 150 MG TAB PO SCH (21:00)
[2023-11-07] MEDS: METOPROLOL SUCCINATE (ER) 100 MG TAB.ER.24H PO SCH (22:04)
--- NOTE | 2023-11-07 23:55 | HP ---
HISTORY AND PHYSICAL CHIEF COMPLAINT: Change in mental status and seizure activity. HISTORY OF PRESENT ILLNESS: This is a 58-year-old gentleman with a past medical history of multiple medical problems including COPD, lung cancer with brain METS and aspiration pneumonia, was admitted with change in mental status and seizure disorder. The patient is unable to give a coherent history. The patient is confused and possibly postictal as well. The patient is on carbamazepine. The patient has been compliant with medications. The CT scan of the brain, which was done at the time of admission showed postsurgical changes. There is no history of any rigors, or chills at this time. PAST MEDICAL HISTORY: History of lung cancer with brain METS and rest of the history as mentioned earlier, rest of the chart is also reviewed. HOME MEDICATIONS: Reviewed include Lasix, doses and rest of medications reviewed. ALLERGIES: Keflex. FAMILY HISTORY: History of hypertension and lung cancer. SOCIAL HISTORY: Smoking, THC. REVIEW OF SYSTEMS: Could not be taken because of change in mental status. PHYSICAL EXAMINATION: VITAL SIGNS: Pulse 58, blood pressure 140/90, and respirations 18. HEENT: Conjunctivae normal. NECK: No JVD. CARDIOVASCULAR: S1, S2 muffled. RESPIRATIONS: Bilateral scattered rhonchi and crackles. ABDOMEN: Soft, nontender. LEGS: No edema. NERVOUS SYTEM: Diffusely weak. SKIN: No ulcer, rash, bleeding. JOINTS: No active deforming arthropathy. LABORATORY DATA: WBC 10.7. Rest of the labs are noted. A CT scan of the brain is reviewed, rest of the chart is also reviewed. ASSESSMENT: 1. Acute seizure disorder with possible breakthrough seizures. 2. History of lung cancer with brain metastases. The last seizure was last year, 11/13/2022. 3. Hypertension. 4. Atrial fibrillation. 5. History of colostomy reversal. 6. Continued ongoing nicotine dependence. 7. Full code. RECOMMENDATIONS AND DISCUSSION: This is a 58-year-old gentleman presented with multiple complex medical issues, we will monitor the patient closely. I would recommend IV Keppra and continue the rest of the medications. Neurology consultations. Neurovascular workup, possibly EEG. We will resume the rest of medications. Seizure precautions and neuro checks. We will continue the home medications once they are confirmed. Prognosis guarded because of multiple complex medical issues. Further recommendations to follow. MMODL / IJN: [id number] /
[2023-11-08 02:57] LABS: Appearance,Urine Clear (Clear); Bilirubin,Urine Negative (Negative); Blood,Urine Negative (Negative); Color,Urine Colorless; Glucose,Urine (UA) Negative (Negative); Ketones,Urine Negative (Negative); Leukocyte Esterase,Urine Negative (Negative); Nitrite,Urine Negative (Negative); Protein,Urine Negative (Negative); Specific Gravity,Urine 1.014 (1.001-1.035); Urobilinogen,Urine <2.0 mg/dL (<2.0)
[2023-11-08] MEDS: PANTOPRAZOLE 40 MG TABLET PO SCH (07:39)
[2023-11-08] MEDS: ASPIRIN 81 MG PO SCH (07:39)
[2023-11-08] MEDS: DILTIAZEM CD 240 MG CAP.ER.24H PO SCH (07:39)
[2023-11-08] MEDS: lisinopriL 5 MG TAB PO SCH (07:39)
[2023-11-08] MEDS: NICOTINE 21MG/24HR PATCH TRANSDERM SCH (09:02)
[2023-11-08 10:36] LABS: African American GFR (CKD) >90 (>60 ml/min/1.73 sqM); Amylase 40 U/L (30-110); Anion Gap 6 mmol/L; Blood Urea Nitrogen 12 mg/dL (9-20); Calcium 8.8 mg/dL (8.4-10.2); Carbon Dioxide 28 mmol/L (22-30); Chloride 105 mmol/L (98-107); Glucose 264 mg/dL (74-99); Magnesium 1.9 mg/dL (1.6-2.3); Non-African American GFR(CKD) >90 (>60 ml/min/1.73 sqM); Sodium 139 mmol/L (137-145)
[2023-11-08 10:39] LABS: Potassium 2.7 mmol/L (3.5-5.1)
[2023-11-08] MEDS ORDERED: Potassium Replacement Protocol 1 EACH MISC MISCELLANE PRN ×2 (10:40→14:48)
[2023-11-08] MEDS: POTASSIUM CHLORIDE ER 20 MEQ TAB.ER PO SCH (11:19)
[2023-11-08] MEDS: DEXAMETHASONE SOD PHOSPHATE 4 MG/ML 1 ML VIAL IVP SCH (12:15)
[2023-11-08] MEDS: BUPRENORPHINE HCL SUBLINGUAL PRN (12:42)
[2023-11-08] MEDS ORDERED: Magnesium Replacement Protocol 1 EACH MISC MISCELLANE PRN (14:48)
--- NOTE | 2023-11-08 15:20 | P.CONS ---
History of Present Illness - Reason for Consult Consult date: 11/08/23 Metastatic small cell lung cancer Requesting physician: Humble Lieberman - Chief Complaint "I had a seizure" - History of Present Illness Mr. Riddle is a 58-year-old with extensive stage small cell lung cancer with brain metastases. He has undergone SRS at [facility] in 06/2022 and then again in 09/2023. He also underwent consolidative chest radiotherapy to 40 Gy in 15 fractions. He has beeen on maintenance Tecentriq. He presents with seizures. The patient initially presented with 2 brain masses in 04/2022. He was transferred to [facility] and underwent resection of each, followed by apparent postoperative bed SRS to each in 06/[address] Max. He then underwent carboplatin/etoposide followed by consolidative chest radiotherapy to 40 Gy in 15 fractions. He was then started on atezolizumab. He developed a new left temporal lobe lesion in 08/2023 and underwent SRS per Dr. Max. He now presents with seizure. CT brain was essentially unremarkable. He had an MRI brain at [facility] on 11/06/2023 which purportedly demonstrated SERVICE STATION CASHIER progression. Since admission, he has had no recurrent seizures. He denies neurological deficits. Review of Systems as per HPI Past Medical History Past Medical History: Atrial Fibrillation, Hypertension, Seizure Disorder Additional Past Medical History / Comment(s): bowel obstruction, cervical spinal stenosis, lung cancer with brain metastases, seizure 11/26/22. History of Any Multi-Drug Resistant Organisms: None Reported Past Surgical History: Back Surgery Additional Past Surgical History / Comment(s): Colostomy and reverse colostomy, L4-L5 fusion, brain surgery Past Anesthesia/Blood Transfusion Reactions: No Reported Reaction Past Psychological History: No Psychological Hx Reported Smoking Status: Current every day smoker Past Alcohol Use History: None Reported Past Drug Use History: Marijuana - Past Family History Mother Family Medical History: Cancer, Hypertension Additional Family Medical History / Comment(s): lung CA Father Family Medical History: Diabetes Mellitus Medications and Allergies Home Medications Medication Instructions Recorded Confirmed Type Pantoprazole [Protonix] 40 mg PO DAILY 11/26/22 11/07/23 History Metoprolol Succinate (ER) [Toprol 100 mg PO BID #60 tab 04/25/23 11/07/23 Rx XL] Albuterol Inhaler [Ventolin Hfa 1 puff INHALATION RT-QID PRN 11/07/23 11/07/23 History Inhaler] Aspirin EC [Ecotrin Low Dose] 81 mg PO DAILY 11/07/23 11/07/23 History Furosemide [Lasix] 20 mg PO DAILY PRN 11/07/23 11/07/23 History OXcarbazepine [Trileptal] 150 mg PO BID 11/07/23 11/07/23 History Zolpidem Tartrate [Ambien Cr] 12.5 mg PO HS 11/07/23 11/07/23 History buprenorphine HCL [Subutex] 8 mg PO TID PRN 11/07/23 11/07/23 History dilTIAZem HCL [Cardizem CD] 240 mg PO DAILY 11/07/23 11/07/23 History lisinopriL [Zestril] 5 mg PO DAILY 11/07/23 11/07/23 History Allergies Allergy/AdvReac Type Severity Reaction Status Date / Time cephalexin [From Keflex] Allergy Confusion, Verified 11/07/23 13:55 dizziness and syncope Physical Exam Vitals: Vital Signs Temp Pulse Pulse Resp BP BP Pulse Ox 11/08/23 11:44 68 16 147/87 97 11/08/23 08:00 98 F 79 18 146/91 97 11/08/23 04:00 97.9 F 87 16 142/98 98 11/08/23 00:00 97.8 F 72 16 142/85 95 11/07/23 20:00 97.5 F L 70 16 136/81 96 11/07/23 16:38 98.2 F 61 18 121/82 98 11/07/23 16:09 97.4 F L 58 L 18 96 11/07/23 16:00 64 18 118/69 96 Intake and Output 11/08/23 11/08/23 11/08/23 06:59 14:59 22:59 Intake Total 1020 Output Total 1625 Balance -1625 1020 Intake: Oral 1020 Output: Urine 1625 Other: Voiding Method Toilet Urinal # Voids 1 # Bowel Movements 1 - Constitutional General appearance: no acute distress - Respiratory Respiratory: negative: prolonged expiration, prolonged inspiration - Neurologic no focal deficits - Psychiatric Psychiatric: A&O x's 3, appropriate affect Results CBC & Chem 7: 11/07/23 12:24 11/08/23 08:50 Labs: Abnormal Lab Results - Last 24 Hours (Table) 11/08/23 Range/Units 08:50 Potassium 2.7 L* (3.5-5.1) mmol/L Creatinine 0.51 L (0.66-1.25) mg/dL Glucose 264 H (74-99) mg/dL Assessment and Plan Assessment: Mr. Riddle is a 58-year-old with extensive stage small cell lung cancer with brain metastases. He has undergone SRS at [facility] in 06/2022 and then again in 09/2023. He also underwent consolidative chest radiotherapy to 40 Gy in 15 fractions. He has beeen on maintenance Tecentriq. He presents with seizures. Plan: The patient presents with seizures. There is concern for SERVICE STATION CASHIER progression. I will start him on Decadron 4 mg every 6 hours with GI prophylaxis. I will repeat his MRI brain. If there is SERVICE STATION CASHIER progression, he may be a candidate for whole brain radiation therapy as he has small cell carcinoma and has already received multiple courses of SRS. Ideally, we will be able to stabilize him here and have him follow-up with Dr. Max for consideration of WBRT. If his seizures persist or he does not otherwise respond well to steroids, consideration will be given for inpatient treatment. Further recommendations to follow once his MRI is completed. Eric Fox MD Radiation Oncology Time with Patient: Greater than 30
[2023-11-08] MEDS: 0.9% NACL WITH KCL 40 MEQ/L 1,000 ML IV SCH (16:35)
--- NOTE | 2023-11-08 16:35 | MR ---
EXAMINATION TYPE: MR brain wo/w con DATE OF EXAM: 11/08/2023 4:17 PM COMPARISON: 11/06/23 and 07/06/2023 HISTORY: Brain metastases FINDINGS: The ventricles, basal cisterns and sulci overlying the cerebral convexities are mildly enlarged. There is evidence of mild periventricular white matter ischemic demyelination. Remote deep white matter insults are also noted. No acute edema is seen on diffusion weighted imaging. There is predominantly cystic mass small solid component left parietal occipital lobe measuring 2.5 x 2.3 cm versus prior measurement of 0.5 x 2.2 cm. Additional high right parietal lesion is redemonstr ated and again demonstrates cystic and solid component and currently measures 2.0 x 1.4 cm versus 2.7 x 1.5 cm. Prior study demonstrated more of a solid component. There is a new right temporal lesion s een posteriorly measuring 1.2 cm. Posterior craniotomy defects noted. Acute intracranial hemorrhage or extra-axial collection is not evident. The paranasal sinuses and mastoid air cells are well-aerated. IMPRESSION: 1.There is a new right temporal lesion seen posteriorly measuring 1.2 cm. 2. Previously described lesions posterior left parietal occipital lobe demonstrates more of a cystic component that this time a small solid component. Additional lesion in the high right parietal region demonstrates cystic and solid components and is slightly smaller than on prior study.
--- NOTE | 2023-11-08 19:43 | P.CONS ---
History of Present Illness - Reason for Consult Consult date: 11/08/23 malignancy Requesting physician: Jake Gamino - Chief Complaint seizure - History of Present Illness Mr. Riddle is a 57-year-old gentleman with a past medical history significant for mixed histology metastatic lung cancer (adenocarcinoma, small cell carcinoma) status post resection of bilateral parietal lobe metastases on 05/06/2022 and postoperative whole brain radiation therapy with 57 Gordon in 8 fractions completed on 06/07/2022 followed by 4 cycles of carboplatin/etoposide/atezolizumab from 07/07/2022 through 09/08/2022. He completed consolidative radiation therapy to the thorax with 40 Gy in 15 fractions. He was then started on maintenance atezolizumab on 11/21/2022 and has currently completed 14 cycles, most recently on 10/13/2023. Repeat brain MRI on 08/28/2023 noted new anterior left temporal lobe lesion measuring 1.4 cm and he received 3 fractions of SRS with 27 Gordon from 09/04/2023 through 09/06/2023. Staging CT scans on 10/23/2023 revealed no evidence of metastatic disease. Repeat brain MRI on 11/06/2023 revealed new right temporal lobe lesion with rim enhancement, measuring 9mm. Patient presented to the emergency room with seizure-like activity and altered mental status. Patient was started on Keppra. CT brain without contrast revealed postsurgical changes to brain with no significant changes from prior exam. No evidence for intracranial hemorrhage or acute/subacute CVA. Patient reports last seizure was approximately 4 months ago. States he has been taking his seizure meds daily as directed. At today's visit patient denies headache, nausea vomiting, and other focal neuro deficits. Patient states, "I feel fine". He was answering questions appropriately but did have some mild delay in answering questions, no slurred speech or aphasia noted. Review of Systems 10 point ROS is negative except as stated in the HPI Past Medical History Past Medical History: Atrial Fibrillation, Hypertension, Seizure Disorder Additional Past Medical History / Comment(s): bowel obstruction, cervical spinal stenosis, lung cancer with brain metastases, seizure 11/26/22. History of Any Multi-Drug Resistant Organisms: None Reported Past Surgical History: Back Surgery Additional Past Surgical History / Comment(s): Colostomy and reverse colostomy, L4-L5 fusion, brain surgery Past Anesthesia/Blood Transfusion Reactions: No Reported Reaction Past Psychological History: No Psychological Hx Reported Smoking Status: Current every day smoker Past Alcohol Use History: None Reported Past Drug Use History: Marijuana - Past Family History Mother Family Medical History: Cancer, Hypertension Additional Family Medical History / Comment(s): lung CA Father Family Medical History: Diabetes Mellitus Medications and Allergies Home Medications Medication Instructions Recorded Confirmed Type Pantoprazole [Protonix] 40 mg PO DAILY 11/26/22 11/07/23 History Metoprolol Succinate (ER) [Toprol 100 mg PO BID #60 tab 04/25/23 11/07/23 Rx XL] Albuterol Inhaler [Ventolin Hfa 1 puff INHALATION RT-QID PRN 11/07/23 11/07/23 History Inhaler] Aspirin EC [Ecotrin Low Dose] 81 mg PO DAILY 11/07/23 11/07/23 History Furosemide [Lasix] 20 mg PO DAILY PRN 11/07/23 11/07/23 History OXcarbazepine [Trileptal] 150 mg PO BID 11/07/23 11/07/23 History Zolpidem Tartrate [Ambien Cr] 12.5 mg PO HS 11/07/23 11/07/23 History buprenorphine HCL [Subutex] 8 mg PO TID PRN 11/07/23 11/07/23 History dilTIAZem HCL [Cardizem CD] 240 mg PO DAILY 11/07/23 11/07/23 History lisinopriL [Zestril] 5 mg PO DAILY 11/07/23 11/07/23 History Allergies Allergy/AdvReac Type Severity Reaction Status Date / Time cephalexin [From Keflex] Allergy Confusion, Verified 11/07/23 13:55 dizziness and syncope Physical Exam Vitals: Vital Signs Temp Pulse Pulse Resp BP BP Pulse Ox 11/08/23 04:00 97.9 F 87 16 142/98 98 11/08/23 00:00 97.8 F 72 16 142/85 95 11/07/23 20:00 97.5 F L 70 16 136/81 96 11/07/23 16:38 98.2 F 61 18 121/82 98 11/07/23 16:09 97.4 F L 58 L 18 96 11/07/23 16:00 64 18 118/69 96 11/07/23 15:00 58 L 18 126/76 90 L 11/07/23 14:00 60 18 110/70 94 L 11/07/23 12:25 56 L 18 107/71 96 11/07/23 11:24 98 F 58 L 18 141/99 92 L Intake and Output 11/07/23 11/08/23 11/08/23 22:59 06:59 14:59 Intake Total 780 240 Output Total 1625 Balance 780 -1625 240 Intake: Oral 780 240 Output: Urine 1625 Other: Weight 79.379 kg - Constitutional General appearance: average body habitus, no acute distress - EENT Eyes: anicteric sclerae, EOMI ENT: hearing grossly normal - Respiratory Respiratory: bilateral: CTA - Cardiovascular Rhythm: regular Heart sounds: normal: S1, S2 - Gastrointestinal General gastrointestinal: soft, no tenderness - Integumentary Integumentary: no cyanotic - Neurologic no focal deficits noted - Musculoskeletal Musculoskeletal: strength equal bilaterally - Psychiatric Psychiatric: A&O x's 3 Results CBC & Chem 7: 11/07/23 12:24 11/08/23 08:50 Labs: Abnormal Lab Results - Last 24 Hours (Table) 11/07/23 11/07/23 11/07/23 Range/Units 11:10 11:15 12:24 WBC 10.7 H (3.8-10.6) k/uL RBC 3.89 L (4.30-5.90) m/uL Hgb 12.5 L (13.0-17.5) gm/dL Hct 38.1 L (39.0-53.0) % RDW 16.1 H (11.5-15.5) % Neutrophils # 8.3 H (1.3-7.7) k/uL Lymphocytes # 0.9 L (1.0-4.8) k/uL BUN 21 H (9-20) mg/dL Glucose 165 H (74-99) mg/dL POC Glucose (mg/dL) 172 H (70-110) mg/dL CT Scan - head: report reviewed MRI - head: report reviewed Assessment and Plan (1) Generalized seizure Current Visit: Yes Status: Acute Priority: High Code(s): R56.9 - UNSPECIFIED CONVULSIONS SNOMED Code(s): 508499077 (2) Metastatic cancer to brain Current Visit: Yes Status: Acute Priority: High Code(s): C79.31 - SECONDARY MALIGNANT NEOPLASM OF BRAIN SNOMED Code(s): 71176173 (3) Lung cancer Current Visit: Yes Status: Acute Priority: High Code(s): C34.90 - MALIGNANT NEOPLASM OF UNSP PART OF UNSP BRONCHUS OR LUNG SNOMED Code(s): 535178608 (4) Altered mental status Current Visit: Yes Status: Acute Priority: High Code(s): R41.82 - ALTERED MENTAL STATUS, UNSPECIFIED SNOMED Code(s): 318451870 Plan: AMS, seizure -Presented with AMS and seizure like activity. Started on IV keppra. CT brain revealed no acute intracranial processes. Neurology following -Symptoms have resolved today, no residual neurological deficits appreciated. Pt reporting, " I feel fine" -Brain MRI was obtained on 11/06/23 which revealed new right temporal lobe lesion with rim enhancement, measuring 9mm. Case has been discussed with radiation oncology. Dr. Fox reviewed MRI brain images from [facility] and spoke with Dr. Max who patient follows with. Decadron 4mg q6hrs started. MRI brain has been reordered, pending results may start inpt whole brain radiation vs outpt f/u Metastatic lung cancer, mixed histology -Full oncological history in HPI -He was started on maintenance atezolizumab on 11/21/2022 and has currently completed 14 cycles, most recently on 10/13/2023. Repeat brain MRI on 08/28/2023 noted new anterior left temporal lobe lesion measuring 1.4 cm and he received 3 fractions of SRS with 27 Gordon from 09/04/2023 through 09/06/2023. Staging CT scans on 10/23/2023 revealed no evidence of metastatic disease. -Repeat brain MRI on 11/06/2023 revealed new right temporal lobe lesion with rim enhancement, measuring 9mm. MRI brain will be repeated by radiation oncology -Clinic f/u to be scheduled upon discharge prior to further treatment attests: I have seen and examined patient, performed H&P, developed impression and plan of care. Discussed with dictator. Agree with documentation, dictated as a scribe
--- NOTE | 2023-11-08 20:18 | P.CNNES ---
History of Present Illness Consult date: 11/08/23 Requesting physician: Joon Quach Reason for Consult: Seizure with prolonged postictal state History of Present Illness: Patient is a 58-year-old male with history of metastatic small cell lung cancer with cerebral metastasis, seizure disorder since 11/27/2022, was brought to the hospital for breakthrough seizure. Patient does not remember details as to the cause he came to the hospital. Patient previously used to be on Keppra, but apparently at this time he is taking oxcarbazepine 150 mg twice daily. He is not on Keppra. I tried to call patient's sister numerous times, and she did not order picker/assembler the phone. Left message on voicemail to call back. Vital signs on arrival blood pressure 141/99, pulse rate 58, temperature 98.0. Blood test shows normal platelets, WBC 10.7, hemoglobin 12.5. Electrolytes, renal functions, hepatic panel is normal. UA is negative. Amylase 40. EKG shows atrial fibrillation with slow ventricular response. CT head revealed postsurgical changes to the brain. Findings are not significantly changed from prior. No evidence for intracranial hemorrhage or acute/subacute CVA. Patient has initially presented with 2 brain masses in April 2022. He was transferred to [facility] and underwent resection of H, followed by apparent postoperative bed SRS to each in June 2022. He then underwent carboplatin/etoposide followed by consolidative chest radiotherapy. Patient was then started on atezolizumab. He developed a new left temporal lobe lesion in August 2023 and underwent SRS. Patient apparently had a recent brain MRI at [facility] on 11/06/2023 which revealed progression of [employer] lesion. Since admission patient has not had any more seizures. No neurodeficits. Review of Systems Grossly unremarkable, except as mentioned in HPI. Past Medical History Past Medical History: Atrial Fibrillation, Hypertension, Seizure Disorder Additional Past Medical History / Comment(s): bowel obstruction, cervical spinal stenosis, lung cancer with brain metastases, seizure 11/26/22. History of Any Multi-Drug Resistant Organisms: None Reported Past Surgical History: Back Surgery Additional Past Surgical History / Comment(s): Colostomy and reverse colostomy, L4-L5 fusion, brain surgery Past Anesthesia/Blood Transfusion Reactions: No Reported Reaction Past Psychological History: No Psychological Hx Reported Smoking Status: Current every day smoker Past Alcohol Use History: None Reported Past Drug Use History: Marijuana - Past Family History Mother Family Medical History: Cancer, Hypertension Additional Family Medical History / Comment(s): lung CA Father Family Medical History: Diabetes Mellitus Medications and Allergies Home Medications Medication Instructions Recorded Confirmed Type Pantoprazole [Protonix] 40 mg PO DAILY 11/26/22 11/07/23 History Metoprolol Succinate (ER) [Toprol 100 mg PO BID #60 tab 04/25/23 11/07/23 Rx XL] Albuterol Inhaler [Ventolin Hfa 1 puff INHALATION RT-QID PRN 11/07/23 11/07/23 History Inhaler] Aspirin EC [Ecotrin Low Dose] 81 mg PO DAILY 11/07/23 11/07/23 History Furosemide [Lasix] 20 mg PO DAILY PRN 11/07/23 11/07/23 History OXcarbazepine [Trileptal] 150 mg PO BID 11/07/23 11/07/23 History Zolpidem Tartrate [Ambien Cr] 12.5 mg PO HS 11/07/23 11/07/23 History buprenorphine HCL [Subutex] 8 mg PO TID PRN 11/07/23 11/07/23 History dilTIAZem HCL [Cardizem CD] 240 mg PO DAILY 11/07/23 11/07/23 History lisinopriL [Zestril] 5 mg PO DAILY 11/07/23 11/07/23 History Allergies Allergy/AdvReac Type Severity Reaction Status Date / Time cephalexin [From Keflex] Allergy Confusion, Verified 11/07/23 13:55 dizziness and syncope Physical Examination - Vital Signs Vital Signs: Vital Signs Temp Pulse Pulse Resp BP BP Pulse Ox 11/08/23 11:44 68 16 147/87 97 11/08/23 08:00 98 F 79 18 146/91 97 11/08/23 04:00 97.9 F 87 16 142/98 98 11/08/23 00:00 97.8 F 72 16 142/85 95 11/07/23 20:00 97.5 F L 70 16 136/81 96 11/07/23 16:38 98.2 F 61 18 121/82 98 11/07/23 16:09 97.4 F L 58 L 18 96 11/07/23 16:00 64 18 118/69 96 11/07/23 15:00 58 L 18 126/76 90 L 11/07/23 14:00 60 18 110/70 94 L Intake and Output 11/07/23 11/08/23 11/08/23 22:59 06:59 14:59 Intake Total 780 1020 Output Total 1625 Balance 780 -1625 1020 Intake: Oral 780 1020 Output: Urine 1625 Other: Voiding Method Toilet Urinal # Voids 1 # Bowel Movements 1 Weight 79.379 kg Patient is a middle aged male, appears older than his stated age. Patient is slightly cachectic. Patient is alert awake oriented to time place and person. Patient knows it is November and the year is 2023 and that he is in [facility] in [place]. He knows name of the current president. Speech and language functions are normal. Patient can name and repeat very well. No aphasia or dysarthria. Attention, concentration and fund of knowledge is adequate. Detailed cognitive function testing deferred. On cranial nerve examination, pupils are equal, round and reacting to light, visual ayon revealed right upper quadrant visual field deficit. Extraocular muscles are intact with no nystagmus. Face is symmetric, tongue protrudes to the midline. Palatal elevation and sensation normal, hearing and shoulder shrug normal, facial sensation normal. On muscle strength testing, there is no pronator drift and the strength is normal in arms and legs distally and proximally. Deep tendon reflexes are symmetric and plantars are withdrawal. Sensory to touch is equal with no neglect on double simultaneous stimulation. Cerebellar function showed no ataxia for [id number] testing. No dysdiadochokinesia. No ataxia for [id number] testing on either side. Tone and bulk of muscles normal. Gait deferred.. On general examination, there is no carotid bruit or murmur, S1-S2 audible. Chest is clear on consultation. Abdomen is soft nontender. No organomegaly, bowel sounds present. Mild peripheral edema. Results - Laboratory Findings CBC and BMP: 11/07/23 12:24 11/08/23 08:50 Abnormal Lab Findings: Abnormal Labs 11/07/23 11/07/23 11/07/23 11:10 11:15 12:24 WBC 10.7 H RBC 3.89 L Hgb 12.5 L Hct 38.1 L RDW 16.1 H Neutrophils # 8.3 H Lymphocytes # 0.9 L Potassium BUN 21 H Creatinine Glucose 165 H POC Glucose (mg/dL) 172 H 11/08/23 08:50 WBC RBC Hgb Hct RDW Neutrophils # Lymphocytes # Potassium 2.7 L* BUN Creatinine 0.51 L Glucose 264 H POC Glucose (mg/dL) Assessment and Plan Assessment: * Seizure disorder, came with breakthrough seizure. * Metastatic lung cancer with cerebral metastasis, status post resection of bilateral parietal lobe metastasis on 05/06/2022 followed by radiation and chemo. * Atrial fibrillation with rapid ventricular rate, not on anticoagulation. * Marijuana use * Tobacco use Plan: * Patient used to be on Keppra 750 mg twice daily. However his home medication list mentions about oxcarbazepine 150 mg twice daily. Patient does not know his seizure medications what he is on. I called patient's sister numerous times, and she was busy and said will call me back, but have not heard back. * Patient is resumed on Keppra 750 mg twice daily. We will also increase Trileptal up to 300 mg twice daily. * No indication for EEG, as patient is back to baseline. * Patient has atrial fibrillation, currently on aspirin 81 mg. We will defer to IM regarding risks and benefits of anticoagulation. * Neurology will follow. Thank you for the consult.
[2023-11-08] MEDS: ACETAMINOPHEN TAB 325 MG TAB PO PRN (20:58)
[2023-11-08] MEDS: OXcarbazepine 300 MG TAB PO SCH (21:02)
--- NOTE | 2023-11-09 07:13 | PN ---
PROGRESS NOTE DATE OF SERVICE: 11/08/2023 SUBJECTIVE: This is a 58-year-old gentleman who was admitted with acute seizure disorder, also had lung cancer with mets. The patient was confused. No chest pain, no palpitation. Basic labs have been reviewed, potassium is 2.7, severely low and chest x-ray is not available. PAST MEDICAL HISTORY: Reviewed. REVIEW OF SYSTEMS: Could not be taken, the patient is still confused. CURRENT MEDICATIONS: Reviewed include Decadron. PHYSICAL EXAMINATION: VITAL SIGNS: Pulse is 79, blood pressure 140/90, and respirations 18. CHEST: Few scattered rhonchi. ABDOMEN: Soft. NERVOUS SYSTEM: Diffusely weak. LABORATORY DATA: Reviewed. ASSESSMENT: 1. Acute seizure disorder with possible breakthrough seizures. 2. History of lung cancer with brain mets, last seizures last year 11/13/2022. 3. Hypertension. 4. Elevated WBC. 5. Atrial fibrillation. 6. History of colostomy reversal. 7. Continued ongoing nicotine dependence. 8. Full code. 9. Hypokalemia. RECOMMENDATIONS: Recommended to continue current management, continue symptomatic treatment, otherwise I would recommend supplement potassium. Continue to monitor, add dexamethasone. Obtain cultures to rule out the possibility of sepsis. Prognosis guarded. Further recommendations to follow. MMODL / IJN: [id number] /
[2023-11-09 07:49] LABS: Basophils % (A) 0 %; Eosinophils % (A) 0 %; HCT 39.3 % (39.0-53.0); HGB 12.5 gm/dL (13.0-17.5); Hypochromasia Slight; Lymphocytes # (A) 0.9 k/uL (1.0-4.8); Lymphocytes % (A) 8 %; MCH 31.4 pg (25.0-35.0); MCHC 31.8 g/dL (31.0-37.0); MCV 98.7 fL (80.0-100.0); Macrocytosis Slight; Mean Platelet Volume 7.4; Monocytes # (A) 0.3 k/uL (0-1.0); Monocytes % (A) 3 %; Neutrophils # (A) 9.7 k/uL (1.3-7.7); Neutrophils % (A) 89 %; Platelet Count 317 k/uL (150-450); RBC 3.98 m/uL (4.30-5.90); RDW 15.8 % (11.5-15.5); WBC 10.9 k/uL (3.8-10.6)
[2023-11-09 08:00] LABS: African American GFR (CKD) >90 (>60 ml/min/1.73 sqM); Anion Gap 2 mmol/L; Blood Urea Nitrogen 16 mg/dL (9-20); Calcium 9.4 mg/dL (8.4-10.2); Carbon Dioxide 29 mmol/L (22-30); Chloride 110 mmol/L (98-107); Glucose 167 mg/dL (74-99); Magnesium 2.1 mg/dL (1.6-2.3); Non-African American GFR(CKD) >90 (>60 ml/min/1.73 sqM); Potassium 5.2 mmol/L (3.5-5.1); Sodium 141 mmol/L (137-145)
--- NOTE | 2023-11-09 14:36 | P.PN ---
Subjective Progress Note Date: 11/09/23 Principal diagnosis: Metastatic small cell carcinoma No recurrent seizures. MRI brain yesterday demonstrated interval development of a right temporal enhancing lesion. Patient feels well with no complaints. Objective - Vital Signs Vital signs: Vital Signs Temp 98.1 F 11/09/23 08:47 Pulse 79 11/09/23 13:20 Resp 16 11/09/23 11:02 BP 122/82 11/09/23 11:02 Pulse Ox 100 11/09/23 11:02 FiO2 Intake & Output 11/08/23 11/09/23 11/09/23 18:59 06:59 18:59 Intake Total 1140 120 Output Total 175 1600 Balance 1140 -175 -1480 Intake: Oral 1140 120 Output: Urine 175 1600 Other: Voiding Method Toilet Toilet Toilet Urinal Urinal Urinal # Voids 3 2 # Bowel Movements 1 0 - Constitutional General appearance: Present: no acute distress - Respiratory Respiratory: negative: prolonged expiration, prolonged inspiration - Neurologic Neurologic Comment(s): no focal deficits - Psychiatric Psychiatric: Present: A&O x's 3, appropriate affect, intact judgment & insight - Labs CBC & Chem 7: 11/09/23 06:32 11/09/23 06:32 Labs: Abnormal Lab Results - Last 24 Hours (Table) 11/09/23 11/09/23 Range/Units 06:32 06:32 WBC 10.9 H (3.8-10.6) k/uL RBC 3.98 L (4.30-5.90) m/uL Hgb 12.5 L (13.0-17.5) gm/dL RDW 15.8 H (11.5-15.5) % Neutrophils # 9.7 H (1.3-7.7) k/uL Lymphocytes # 0.9 L (1.0-4.8) k/uL Potassium 5.2 H (3.5-5.1) mmol/L Chloride 110 H (98-107) mmol/L Creatinine 0.54 L (0.66-1.25) mg/dL Glucose 167 H (74-99) mg/dL Assessment and Plan Assessment: Mr. Riddle is a 58-year-old with extensive stage small cell lung cancer with brain metastases. He has undergone SRS at [facility] in 06/2022 and then again in 09/2023. He also underwent consolidative chest radiotherapy to 40 Gy in 15 fractions. He has beeen on maintenance Tecentriq. He presents with seizures. Plan: The patient is doing well clinically. He has a new right temporal lesion. In discussion with Dr. Max, this area has not been treated. He would be a good candidate for repeat SRS which may be completed on an outpatient basis at [facility]. He is suitable for discharge from my perspective. I would defer the anti-epileptic regimen to neurology. For steroids, I would recommend Decadron 4 mg three times daily upon discharge for 5 days, then 4 mg twice daily for 5 days, then 4 mg daily for 5 days or until discontinued per Dr. Max. Eric Fox MD Radiation Oncology Time with Patient: Greater than 30
--- NOTE | 2023-11-09 16:12 | P.PN ---
Subjective Progress Note Date: 11/09/23 Principal diagnosis: AMS, seizure No acute events. No seizure-like activity since admission. Patient reports he is feeling well and at baseline. No appreciable acute neuro deficits. Repeat brain MRI revealed new right temporal lobe lesion measuring 1.2 cm. Objective - Vital Signs Vital signs: Vital Signs Temp 98.1 F 11/09/23 08:47 Pulse 79 11/09/23 11:02 Resp 16 11/09/23 11:02 BP 122/82 11/09/23 11:02 Pulse Ox 100 11/09/23 11:02 FiO2 Intake & Output 11/08/23 11/09/23 11/09/23 18:59 06:59 18:59 Intake Total 1140 120 Output Total 175 1600 Balance 1140 -175 -1480 Intake: Oral 1140 120 Output: Urine 175 1600 Other: Voiding Method Toilet Toilet Toilet Urinal Urinal Urinal # Voids 3 2 # Bowel Movements 1 0 - Constitutional General appearance: Present: average body habitus, no acute distress - EENT Eyes: Present: anicteric sclerae, EOMI ENT: Present: hearing grossly normal - Respiratory Details: breathing even and unlabored - Cardiovascular Details: well perfused - Integumentary Integumentary: Absent: cyanotic - Neurologic Neurologic Comment(s): no focal deficits - Musculoskeletal Musculoskeletal: Present: strength equal bilaterally - Psychiatric Psychiatric: Present: A&O x's 3 - Labs CBC & Chem 7: 11/09/23 06:32 11/09/23 06:32 Labs: Abnormal Lab Results - Last 24 Hours (Table) 11/09/23 11/09/23 Range/Units 06:32 06:32 WBC 10.9 H (3.8-10.6) k/uL RBC 3.98 L (4.30-5.90) m/uL Hgb 12.5 L (13.0-17.5) gm/dL RDW 15.8 H (11.5-15.5) % Neutrophils # 9.7 H (1.3-7.7) k/uL Lymphocytes # 0.9 L (1.0-4.8) k/uL Potassium 5.2 H (3.5-5.1) mmol/L Chloride 110 H (98-107) mmol/L Creatinine 0.54 L (0.66-1.25) mg/dL Glucose 167 H (74-99) mg/dL - Imaging and Cardiology MRI - head: report reviewed Assessment and Plan (1) Generalized seizure Current Visit: Yes Status: Acute Priority: High Code(s): R56.9 - UNSPECIFIED CONVULSIONS SNOMED Code(s): 776070740 (2) Metastatic cancer to brain Current Visit: Yes Status: Acute Priority: High Code(s): C79.31 - SECONDARY MALIGNANT NEOPLASM OF BRAIN SNOMED Code(s): 60033134 (3) Lung cancer Current Visit: Yes Status: Acute Priority: High Code(s): C34.90 - MALIGNANT NEOPLASM OF UNSP PART OF UNSP BRONCHUS OR LUNG SNOMED Code(s): 365741328 (4) Altered mental status Current Visit: Yes Status: Acute Priority: High Code(s): R41.82 - ALTERED MENTAL STATUS, UNSPECIFIED SNOMED Code(s): 432256559 Plan: AMS, seizure -Presented with AMS and seizure like activity. Started on IV keppra. CT brain revealed no acute intracranial processes. Neurology following -Symptoms have resolved today, no residual neurological deficits appreciated. Pt reporting, " I feel fine" -Brain MRI was obtained on 11/06/23 which revealed new right temporal lobe lesion with rim enhancement, measuring 9mm. Case has been discussed with radiation oncology. Dr. Fox reviewed MRI brain images from [place] and spoke with Dr. Max who patient follows with. Decadron 4mg q6hrs started. MRI brain has been reordered, pending results may start inpt whole brain radiation vs outpt f/u -Repeat brain MRI, revealed new right temporal lobe lesion measuring 1.2 cm. Pt is doing well, no reported complaints and is at baseline. Per rad onc note, no plan for inpt radiation, will f/u with Dr. Max for SRS in the oupt setting. Steroid taper recommended Metastatic lung cancer, mixed histology -Full oncological history in HPI -He was started on maintenance atezolizumab on 11/21/2022 and has currently completed 14 cycles, most recently on 10/13/2023. Repeat brain MRI on 08/28/2023 noted new anterior left temporal lobe lesion measuring 1.4 cm and he received 3 fractions of SRS with 27 Gordon from 09/04/2023 through 09/06/2023. Staging CT scans on 10/23/2023 revealed no evidence of metastatic disease. -Repeat brain MRI on 11/06/2023 revealed new right temporal lobe lesion with rim enhancement, measuring 9mm. Repeat MRI brain showing right temporal lesion measuring at 1.2 cm. Steroid taper and outpt f/u with Dr. Max for SRS has been recommended by rad onc -Clinic f/u to be scheduled upon discharge prior to further treatment Pt is cleared from medical oncology standpoint, once cleared by IM and other consulted medical specialities
--- NOTE | 2023-11-09 22:49 | PN ---
PROGRESS NOTE DATE OF SERVICE: 11/09/2023 SUBJECTIVE: This 58-year-old gentleman admitted with seizure disorder, also had history of metastatic malignancy. A CT brain showed new right temporal lesion posteriorly measuring 1.2 cm previously demonstrated, effusions also noted. No chest pain, no palpitation. PHYSICAL EXAMINATION: VITAL SIGNS: Pulse is 79, blood pressure 120/80, respirations 16. CHEST: Clear to auscultation. CARDIOVASCULAR: S1, S2. ABDOMEN: Soft. NERVOUS SYSTEM: No focal deficits. LABORATORY DATA: Potassium 5.2. ASSESSMENT: 1. Acute seizure disorder with possible breakthrough seizures. 2. History of lung cancer with brain mets, new temporal lesion. 3. Last seizures 11/13/2022. 4. Hypertension. 5. Elevated WBC. 6. Atrial fibrillation. 7. History of colostomy reversal. 8. Continued ongoing nicotine dependence. 9. Hypokalemia. 10.Full code. RECOMMENDATIONS: Recommended to continue current management, continue symptomatic treatment. Continue with steroids. Closely follow with Hematology/Oncology and Neurology. The prognosis is guarded. Further recommendations to follow. MMODL / IJN: [id number] /
[2023-11-10] MEDS: ALBUTEROL NEBULIZED 2.5 MG/3 ML INHALATION PRN (03:09)
[2023-11-10 08:29] VITALS: RESP 16; TEMP 97.6
[2023-11-10 08:43] LABS: African American GFR (CKD) >90 (>60 ml/min/1.73 sqM); Anion Gap 5 mmol/L; Blood Urea Nitrogen 22 mg/dL (9-20); Calcium 9.4 mg/dL (8.4-10.2); Carbon Dioxide 26 mmol/L (22-30); Chloride 109 mmol/L (98-107); Glucose 147 mg/dL (74-99); Non-African American GFR(CKD) >90 (>60 ml/min/1.73 sqM); Potassium 3.9 mmol/L (3.5-5.1); Sodium 140 mmol/L (137-145)
[2023-11-10 09:02] LABS: Anisocytosis Slight; Basophils % (A) 0 %; Eosinophils % (A) 0 %; HCT 39.8 % (39.0-53.0); Hypochromasia Slight; Lymphocytes # (A) 0.8 k/uL (1.0-4.8); Lymphocytes % (A) 4 %; MCH 32.2 pg (25.0-35.0); MCHC 32.8 g/dL (31.0-37.0); MCV 98.4 fL (80.0-100.0); Macrocytosis Slight; Mean Platelet Volume 8.6; Monocytes # (A) 0.8 k/uL (0-1.0); Monocytes % (A) 5 %; Neutrophils # (A) 16.3 k/uL (1.3-7.7); Neutrophils % (A) 91 %; Platelet Count 344 k/uL (150-450); RBC 4.04 m/uL (4.30-5.90); RDW 16.1 % (11.5-15.5)
--- NOTE | 2023-11-10 09:46 | P.PN ---
Subjective Progress Note Date: 11/09/23 Patient is very groggy, sleeping at this time. No seizures reported by the nurse in the last 24 hours. I was able to get hold of patient's sister, who mentions that patient used to be on Keppra 750 mg twice a day. In August 2023, patient had a seizure, ended up in [facility]. There he was switched from Keppra to Trileptal. Patient's sister does not know, the reason why he was switched from Keppra to oxcarbazepine. She does not know if patient had any side effect of Keppra, or they were just not aware what medication he was on. He has been very tired and sleepy in the last few months. Patient's sister mentions that he has been on Keppra since November 2022 and was doing quite well. She did not notice any adverse effect from Keppra 750 mg twice daily. Objective - Vital Signs Vital signs: Vital Signs Temp 98.5 F 11/09/23 16:04 Pulse 85 11/09/23 16:04 Resp 17 11/09/23 16:04 BP 136/92 11/09/23 16:04 Pulse Ox 97 11/09/23 16:04 FiO2 Intake & Output 11/08/23 11/09/23 11/09/23 18:59 06:59 18:59 Intake Total 1140 360 Output Total 175 2100 Balance 1140 -175 -1740 Intake: Oral 1140 360 Output: Urine 175 2100 Other: Voiding Method Toilet Toilet Toilet Urinal Urinal Urinal # Voids 3 2 # Bowel Movements 1 0 - Exam Patient is very sleepy, likely from medication side effect. No seizures repor kemal by the nurse. Detail examination deferred. - Labs CBC & Chem 7: 11/10/23 06:54 11/10/23 06:54 Labs: Abnormal Lab Results - Last 24 Hours (Table) 11/09/23 11/09/23 Range/Units 06:32 06:32 WBC 10.9 H (3.8-10.6) k/uL RBC 3.98 L (4.30-5.90) m/uL Hgb 12.5 L (13.0-17.5) gm/dL RDW 15.8 H (11.5-15.5) % Neutrophils # 9.7 H (1.3-7.7) k/uL Lymphocytes # 0.9 L (1.0-4.8) k/uL Potassium 5.2 H (3.5-5.1) mmol/L Chloride 110 H (98-107) mmol/L Creatinine 0.54 L (0.66-1.25) mg/dL Glucose 167 H (74-99) mg/dL Assessment and Plan Assessment: * Seizure disorder, came with breakthrough seizure. * Metastatic lung cancer with cerebral metastasis, status post resection of bilateral parietal lobe metastasis on 05/06/2022 followed by radiation and chemo. * Atrial fibrillation with rapid ventricular rate, not on anticoagulation. * Marijuana use * Tobacco use Plan: * I spoke to patient's sister on the phone. She mentions that patient used to be on Keppra 750 mg twice daily. In August 2023, patient had a seizure, ended up in [facility]. There he was switched from Keppra to oxcarbazepine. Patient's sister does not know, the reason why he was switched from Keppra to oxcarbazepine. She does not know if patient had any side effect of Keppra, or they were just not aware what medication he was on, and put on oxcarbazepine. Patient has been very tired and sleepy in the last few months. Patient's sister mentions that he has been on Keppra since November 2022 and was doing quite well. She did not notice any adverse effect from Keppra 750 mg twice daily. Patient was subsequently seen by his neurologist Dr. Ann on 08/21/2023, who was concerned with oxcarbazepine, and it requires more frequent drug level/sodium monitoring as compared to Keppra. However he did not switch back to the Keppra. * After prolonged discussion with patient's sister, we decided to switch him back on Keppra, but higher dose of 1000 mg twice daily. We will stop Trileptal/oxcarbazepine. * No indication for EEG, as patient is back to baseline. * Patient has atrial fibrillation, currently on aspirin 81 mg. We will defer to IM regarding risks and benefits of anticoagulation. * Neurologically will be clear, when patient is more awake and alert and back to baseline.
[2023-11-10 11:36] VITALS: BP 149/93; PULSE 88
--- NOTE | 2023-11-10 18:43 | P.DS ---
Providers Date of admission: 11/07/23 12:53 Expected date of discharge: 11/10/23 Attending physician: Manjeet Del Rosario MD Consults: 11/07/23 12:52 Consult Physician Routine Consulting Provider: Dileep Flynn Consult Reason/Comments: seizure with prolonged postictal Do you want consulting provider notified?: Yes 11/07/23 15:44 Consult Physician Routine Consulting Provider: Humble Lieberman Consult Reason/Comments: malignancy Do you want consulting provider notified?: Yes 11/08/23 11:41 Consult Physician Routine Consulting Provider: Eric Fox Consult Reason/Comments: brain mets Do you want consulting provider notified?: Already Contacted Primary care physician: Manjeet Del Rosario MD Hospital Course: Final diagnosis Acute seizure disorder with breakthrough seizures likely secondary to brain metastasis History of lung cancer with brain mets, new temporal lesions noted Hypertension Elevated white count Atrial fibrillation history History of colostomy reversal Continued ongoing nicotine dependence Hypokalemia, improved GI prophylaxis DVT prophylaxis Full code Discharge disposition Patient is being discharged in a stable condition with guarded prognosis to home. Patient will follow-up with Dr. Del Rosario in the outpatient setting upon discharge. Patient is to continue with steroids per radiation oncology and close outpatient follow-up with oncology as well as radiation oncology as scheduled. Total time taken is greater than 35 minutes. Hospital course This is a 58-year-old male who was recently admitted with acute seizures with breakthrough seizures being closely monitored with multiple medical consultations. Patient has history of lung cancer with brain mets and underwent imaging with new temporal lesion noted and is continued on steroids. Patient a lso evaluated by neurology with medication adjustments including discontinuing Trileptal and increasing seizure medications. Patient has been cleared by consultations with close outpatient follow-up arranged in the outpatient setting with radiation oncology as well as oncology. Patient would like to go home and reports to feeling improved. Please refer to other consultation notes for further HPI. Currently no reports of chest pain, shortness of breath, or palpitations. Patient is afebrile. No reports of nausea or vomiting and patient is tolerating diet. Patient will be discharged home today. Extremely guarded prognosis and high risk for readmissions Physical exam: Gen: This is a 58-year-old male who is awake, alert and oriented x 2-3, baseline, well-developed, well-nourished, appears elderly HEENT: Head is atraumatic, normocephalic. Pupils equal, round. Sclerae is anicteric. NECK: Supple. No JVD. No lymphadenopathy. No thyromegaly. LUNGS: Clear to auscultation. No wheezes or rhonchi. No intercostal retractions. HEART: Regular rate and rhythm. No murmur. ABDOMEN: Soft. Bowel sounds are present. No masses. No tenderness. EXTREMITIES: No pedal edema. No calf tenderness. NEUROLOGICAL: Patient is awake, alert and oriented x3. Cranial nerves 2 through 12 are grossly intact. Please refer to medication reconciliation sheet for a list of medications. The impression and plan of care has been dictated by Cori Glover, Nurse Practitioner as directed. Dr. Stevenson MD I have performed a history and examination and MDM of this patient, discussed the same with the dictator, and agree with the dictator's assessment and plan as written ,documented as a scribe. Based on total visit time, I have performed more than 50% of the visit. Patient Condition at Discharge: Fair Plan - Discharge Summary Discharge Rx Participant: No New Discharge Prescriptions: New levETIRAcetam [Keppra] 1,000 mg PO Q12HR 30 Days #120 tab Nicotine 21Mg/24Hr Patch [Habitrol] 1 patch TRANSDERM DAILY patch Acetaminophen Tab [Tylenol] 650 mg PO Q6HR PRN tab PRN Reason: Fever And/ Or Pain Continue Pantoprazole [Protonix] 40 mg PO DAILY Albuterol Inhaler [Ventolin Hfa Inhaler] 1 puff INHALATION RT-QID PRN PRN Reason: Shortness Of Breath Metoprolol Succinate (ER) [Toprol XL] 100 mg PO BID #60 tab Furosemide [Lasix] 20 mg PO DAILY PRN PRN Reason: Edema buprenorphine HCL [Subutex] 8 mg PO TID PRN PRN Reason: Cravings lisinopriL [Zestril] 5 mg PO DAILY dilTIAZem HCL [Cardizem CD] 240 mg PO DAILY Aspirin EC [Ecotrin Low Dose] 81 mg PO DAILY Zolpidem Tartrate [Ambien Cr] 12.5 mg PO HS Discontinued OXcarbazepine [Trileptal] 150 mg PO BID Discharge Medication List Pantoprazole [Protonix] 40 mg PO DAILY 11/26/22 [History] Metoprolol Succinate (ER) [Toprol XL] 100 mg PO BID #60 tab 04/25/23 [Rx] Albuterol Inhaler [Ventolin Hfa Inhaler] 1 puff INHALATION RT-QID PRN 11/07/23 [History] Aspirin EC [Ecotrin Low Dose] 81 mg PO DAILY 11/07/23 [History] Furosemide [Lasix] 20 mg PO DAILY PRN 11/07/23 [History] Zolpidem Tartrate [Ambien Cr] 12.5 mg PO HS 11/07/23 [History] buprenorphine HCL [Subutex] 8 mg PO TID PRN 11/07/23 [History] dilTIAZem HCL [Cardizem CD] 240 mg PO DAILY 11/07/23 [History] lisinopriL [Zestril] 5 mg PO DAILY 11/07/23 [History] Acetaminophen Tab [Tylenol] 650 mg PO Q6HR PRN tab 11/10/23 [Rx] Nicotine 21Mg/24Hr Patch [Habitrol] 1 patch TRANSDERM DAILY patch 11/10/23 [Rx] levETIRAcetam [Keppra] 1,000 mg PO Q12HR 30 Days #120 tab 11/10/23 [Rx] Follow up Appointment(s)/Referral(s): Manjeet Del Rosario MD [Primary Care Provider] - 1-2 days Patient Instructions/Handouts: Seizure/Epilepsy Discharge Instructions & Follow-Up Activity/Diet/Wound Care/Special Instructions: Activity limited until follow-up Patient to continue with steroids per radiation oncology as instructed Follow-up with oncology and radiation oncology outpatient Follow-up primary care provider on discharge Discharge Disposition: HOME SELF-CARE
[2023-11-10] MEDS ORDERED: levETIRAcetam 500 MG TAB PO SCH (21:00)
--- NOTE | 2023-11-11 09:27 | P.PN ---
Subjective Progress Note Date: 11/10/23 Patient was seen for a follow-up. Patient is doing much better. Fully alert and awake. He states that he has been tired in the last few months, does not know if it is from oxcarbazepine, or from immunotherapy that he is receiving. He sometimes gets rash, although it is not present at this time. I was able to get hold of patient's sister, who mentions that patient used to be on Keppra 750 mg twice a day. In August 2023, patient had a seizure, ended up in [facility]. There he was switched from Keppra to Trileptal. Patient's sister does not know, the reason why he was switched from Keppra to oxcarbazepine. She does not know if patient had any side effect of Keppra, or they were just not aware what medication he was on. He has been very tired and sleepy in the last few months. Patient's sister mentions that he has been on Keppra since November 2022 and was doing quite well. She did not notice any adverse effect from Keppra 750 mg twice daily. Objective - Vital Signs Vital signs: Vital Signs Temp 97.6 F 11/10/23 11:21 Pulse 88 11/10/23 11:21 Resp 16 11/10/23 11:21 BP 149/93 11/10/23 11:21 Pulse Ox 96 11/10/23 11:21 FiO2 Intake & Output 11/09/23 11/10/23 11/10/23 18:59 06:59 18:59 Intake Total 360 Output Total 2100 300 650 Balance -1740 -300 -650 Intake: Oral 360 Output: Urine 2100 300 650 Other: Voiding Method Toilet Urinal Urinal Urinal # Bowel Movements 0 - Exam Patient is alert and awake, fully oriented. Mentation is normal. Examination is nonfocal. - Labs CBC & Chem 7: 11/10/23 06:54 11/10/23 06:54 Labs: Abnormal Lab Results - Last 24 Hours (Table) 11/10/23 11/10/23 Range/Units 06:54 06:54 WBC 18.0 H (3.8-10.6) k/uL RBC 4.04 L (4.30-5.90) m/uL RDW 16.1 H (11.5-15.5) % Neutrophils # 16.3 H (1.3-7.7) k/uL Lymphocytes # 0.8 L (1.0-4.8) k/uL Chloride 109 H (98-107) mmol/L BUN 22 H (9-20) mg/dL Creatinine 0.48 L (0.66-1.25) mg/dL Glucose 147 H (74-99) mg/dL Microbiology - Last 24 Hours (Table) 11/08/23 16:58 Blood Culture - Preliminary Blood Assessment and Plan Assessment: * Seizure disorder, came with breakthrough seizure. * Metastatic lung cancer with cerebral metastasis, status post resection of bilateral parietal lobe metastasis on 05/06/2022 followed by radiation and chemo. * Atrial fibrillation with rapid ventricular rate, not on anticoagulation. * Marijuana use * Tobacco use Plan: * I spoke to patient's sister on the phone. She mentions that patient used to be on Keppra 750 mg twice daily. In August 2023, patient had a seizure, ended up in [facility]. There he was switched from Keppra to oxcarbazepine. Patient's sister does not know, the reason why he was switched from Keppra to oxcarbazepine. She does not know if patient had any side effect of Keppra, or they were just not aware what medication he was on, and put on oxcarbazepine. Patient has been very tired and sleepy in the last few months. Patient's sister mentions that he has been on Keppra since November 2022 and was doing quite well. She did not notice any adverse effect from Keppra 750 mg twice daily. Patient was subsequently seen by his neurologist Dr. Ann on 08/21/2023, who was concerned with oxcarbazepine, and it requi res more frequent drug level/sodium monitoring as compared to Keppra. However he did not switch back to the Keppra. * After prolonged discussion with patient's sister, we decided to switch him back on Keppra, but higher dose of 1000 mg twice daily. We will stop Trileptal/oxcarbazepine. * No indication for EEG, as patient is back to baseline. * Patient has atrial fibrillation, currently on aspirin 81 mg. We will defer to IM regarding risks and benefits of anticoagulation. * Patient's mentation is completely normal at this time. Neurologically clear for discharge.
== END 2023-11-10 14:09 | disposition home or self-care (01) | DRG 101 ==
LOC: EC 10:47 → 3SCARD 12:53
PROVIDERS: ADMIT Family Medicine; ATTEND Family Medicine
DX: G40.901 Epilepsy, unspecified, not intractable, with status epilepticus (principal); C79.31 Secondary malignant neoplasm of brain; Z59.00 Homelessness unspecified; M48.02 Spinal stenosis, cervical region; F17.210 Nicotine dependence, cigarettes, uncomplicated; I10 Essential (primary) hypertension; Z71.6 Tobacco abuse counseling; E87.6 Hypokalemia; Z79.82 Long term (current) use of aspirin; Z79.51 Long term (current) use of inhaled steroids; Z79.899 Other long term (current) drug therapy; D72.829 Elevated white blood cell count, unspecified; Z82.49 Family history of ischemic heart disease and other diseases of the circulatory system; Z93.3 Colostomy status; Z85.118 Personal history of other malignant neoplasm of bronchus and lung; Z87.19 Personal history of other diseases of the digestive system; Z88.1 Allergy status to other antibiotic agents; Z98.1 Arthrodesis status
CPT/HCPCS: 36415; 70450; 70553; 80048; 80053; 81003; 82150; 83735; 85025; 87040; 93005; 94640; 96361; 96374; 99285

== ENCOUNTER → 2023-12-11 | Outpatient (CLI) | payer BC, OTHER ==
--- NOTE | 2023-12-12 10:03 | CA ---
Transthoracic Echo Report Name: Royce Riddle Age: 58 Gender: M : 1965 Exam Date: 12/11/2023 16:12 Exam Location: [facility] Ht (in): 71 Wt (lb): 143 Ordering Physician: Mo Rahman MD Attending/Referring Phys: Wood Preparation Supervisor Liliam Mendez RDCS Procedure CPT: Indications: R79.89 OTHER SPECIFIED ABNORMAL FINDINGS OF BLOOD Cardiac Hx: Technical Quality: Fair Contrast 1: Total Dose (mL): Contrast 2: Total Dose (mL): MEASUREMENTS (Male / Female) Normal Values 2D ECHO LV Diastolic Diameter PLAX 4.4 cm 4.2 - 5.9 / 3.9 - 5.3 cm LV Systolic Diameter PLAX 3.1 cm IVS Diastolic Thickness 1.6 cm 0.6 - 1.0 / 0.6 - 0.9 cm LVPW Diastolic Thickness 1.5 cm 0.6 - 1.0 / 0.6 - 0.9 cm LV Relative Wall Thickness 0.7 RV Internal Dim ED PLAX 4.3 cm LVOT Diameter 1.6 cm LA Volume 122.1 cm??? 18 - 58 / 22 - 52 cm??? LA Volume Index 68.1 cm???/m??? 16 - 28 cm???/m??? M-MODE Aortic Root Diameter MM 4.1 cm LA Systolic Diameter MM 4.7 cm LA Ao Ratio MM 1.2 AV Cusp Separation MM 2.3 cm DOPPLER AV Peak Velocity 125.0 cm/s AV Peak Gradient 6.2 mmHg AV Mean Velocity 91.4 cm/s AV Mean Gradient 3.6 mmHg AV Velocity Time Integral 19.8 cm AI Peak Velocity 346.0 cm/s AI Peak Gradient 47.9 mmHg AI Pressure Half Time 619.9 ms LVOT Peak Velocity 83.7 cm/s LVOT Peak Gradient 2.8 mmHg LVOT Velocity Time Integral 14.3 cm LVOT Stroke Volume 30.2 cm??? LVOT Stroke Volume Index 16.5 ml/m??? LVOT Cardiac Index 1228.9 cm???/min???m??? AV Area Cont Eq vti 1.5 cm??? AV Area Cont Eq pk 1.4 cm??? MV Area PHT 3.7 cm??? Mitral E Point Velocity 77.7 cm/s Mitral A Point Velocity 29.8 cm/s Mitral E to A Ratio 2.6 MV Deceleration Time 205.1 ms MV E' Velocity 10.2 cm/s Mitral E to MV E' Ratio 7.6 TR Peak Velocity 300.3 cm/s TR Peak Gradient 36.1 mmHg Right Ventricular Systolic Press 39.8 mmHg FINDINGS Left Ventricle Moderately increased left ventricular wall thickness. Left ventricular cavity size normal. Normal left ventricular systolic function with no obvious regional wall motion abnormalities. Left ventricular ejection fraction is estimated at 55-60 %. Right Ventricle Right ventricular dilatation. Mild pulmonary hypertension. Right Atrium Severe right atrial dilatation. Left Atrium Severely increased left atrial volume. Mildly increased left atrial area. Mitral Valve Structurally normal mitral valve. Mild mitral annular calcification. Moderate mitral regurgitation. Aortic Valve Trileaflet aortic valve. Mild aortic regurgitation. No aortic stenosis. Tricuspid Valve Structurally normal tricuspid valve. [id number] tricuspid regurgitation. Pulmonic Valve Structurally normal pulmonic valve. Trace pulmonic regurgitation. Pericardium No pericardial effusion. Aorta Normal size aortic root and proximal ascending aorta. CONCLUSIONS Normal LV systolic function Moderate mitral regurgitation Mild aortic regurgitation Mild to moderate tricuspid regurgitation Mild pulmonary hypertension Previewed by: Dr. Rich Montes MD (Electronically Signed) Final Date: 12 December 2023 10:02
== END | disposition home or self-care (01) ==
LOC: RADECHMAIN 16:10
PROVIDERS: ATTEND Internal Medicine
DX: C34.90 Malignant neoplasm of unspecified part of unspecified bronchus or lung (principal); I34.0 Nonrheumatic mitral (valve) insufficiency; I35.1 Nonrheumatic aortic (valve) insufficiency; I07.1 Rheumatic tricuspid insufficiency; I27.20 Pulmonary hypertension, unspecified; R79.89 Other specified abnormal findings of blood chemistry; I48.91 Unspecified atrial fibrillation
CPT/HCPCS: 93306

== ENCOUNTER 2024-04-07 22:03 | Inpatient (IN) | payer BC, OTHER ==
[2024-04-07] MEDS ORDERED: LORazepam 2 MG/ML INJ IV STA (22:11)
[2024-04-07 22:15] LABS: Glucose,Whole Blood 161 mg/dL (70-110)
[2024-04-07] MEDS: LORazepam 2 MG/ML INJ IV STA (22:19)
[2024-04-07] MEDS: SODIUM CHLORIDE 0.9% 1,000 ML IV STA (22:19)
[2024-04-07 22:31] LABS: Anisocytosis Slight; Basophils % (A) 0 %; Eosinophils # (A) 0.1 k/uL (0-0.7); Eosinophils % (A) 0 %; HCT 47.4 % (39.0-53.0); HGB 15.1 gm/dL (13.0-17.5); Lymphocytes # (A) 0.9 k/uL (1.0-4.8); Lymphocytes % (A) 5 %; MCHC 31.8 g/dL (31.0-37.0); MCV 97.2 fL (80.0-100.0); Mean Platelet Volume 7.6; Monocytes # (A) 1.3 k/uL (0-1.0); Monocytes % (A) 7 %; Neutrophils # (A) 15.5 k/uL (1.3-7.7); Neutrophils % (A) 86 %; Platelet Count 269 k/uL (150-450); RBC 4.88 m/uL (4.30-5.90); RDW 16.1 % (11.5-15.5); WBC 18.1 k/uL (3.8-10.6)
[2024-04-07] MEDS: levETIRAcetam IV 2,000 MG in SODIUM CHLORIDE 0.9% 250 ML IVPB ONE (22:35)
--- NOTE | 2024-04-07 22:44 | ED ---
General Adult HPI - General Chief complaint: Seizure Stated complaint: Seizure Time Seen by Provider: 04/07/24 22:07 Source: family, EMS, RN notes reviewed, old records reviewed Mode of arrival: EMS Limitations: altered mental status - History of Present Illness Initial comments: 58-year-old male presents after being found outside with altered level of consciousness, suspect seizure. History is obtained initially from paramedics and then later from the patient's sister who states that the patient does have seizure history and has history of lung cancer with brain metastases. The patient had gone outside approximately 2 and half to 3 hours prior to being found by the sister. Unknown exactly when he became unconscious and altered but it is suspected that he had been out for several hours. Patient's sister states that this is a typical presentation of previous seizure activity and he does have prolonged postictal phase. - Related Data Home Medications Medication Instructions Recorded Confirmed Pantoprazole [Protonix] 40 mg PO DAILY 11/26/22 11/07/23 Albuterol Inhaler [Ventolin Hfa 1 puff INHALATION RT-QID PRN 11/07/23 11/07/23 Inhaler] Aspirin EC [Ecotrin Low Dose] 81 mg PO DAILY 11/07/23 11/07/23 Furosemide [Lasix] 20 mg PO DAILY PRN 11/07/23 11/07/23 Zolpidem Tartrate [Ambien Cr] 12.5 mg PO HS 11/07/23 11/07/23 buprenorphine HCL [Subutex] 8 mg PO TID PRN 11/07/23 11/07/23 dilTIAZem HCL [Cardizem CD] 240 mg PO DAILY 11/07/23 11/07/23 lisinopriL [Zestril] 5 mg PO DAILY 11/07/23 11/07/23 Previous Rx's Medication Instructions Recorded Metoprolol Succinate (ER) [Toprol 100 mg PO BID #60 tab 04/25/23 XL] Acetaminophen Tab [Tylenol] 650 mg PO Q6HR PRN tab 11/10/23 Nicotine 21Mg/24Hr Patch [Habitrol] 1 patch TRANSDERM DAILY patch 11/10/23 levETIRAcetam [Keppra] 1,000 mg PO Q12HR 30 Days #120 tab 11/10/23 Allergies Allergy/AdvReac Type Severity Reaction Status Date / Time cephalexin [From Keflex] Allergy Confusion, Verified 04/07/24 22:05 dizziness and syncope Review of Systems ROS Statement: Those systems with pertinent positive or pertinent negative responses have been documented in the HPI. ROS Other: All systems not noted in ROS Statement are negative. Past Medical History Past Medical History: Atrial Fibrillation, Hypertension, Seizure Disorder Additional Past Medical History / Comment(s): bowel obstruction, cervical spinal stenosis, lung cancer with brain metastases, seizure 11/26/22. History of Any Multi-Drug Resistant Organisms: None Reported Past Surgical History: Back Surgery Additional Past Surgical History / Comment(s): Colostomy and reverse colostomy, L4-L5 fusion, brain surgery Past Anesthesia/Blood Transfusion Reactions: No Reported Reaction Past Psychological History: No Psychological Hx Reported Smoking Status: Current every day smoker Past Alcohol Use History: None Reported Past Drug Use History: Marijuana - Past Family History Mother Family Medical History: Cancer, Hypertension Additional Family Medical History / Comment(s): lung CA Father Family Medical History: Diabetes Mellitus General Exam General appearance: obtunded, in distress Head exam: Present: atraumatic, normocephalic Eye exam: Present: normal appearance, PERRL Neck exam: Absent: tenderness, meningismus Respiratory exam: Present: normal lung sounds bilaterally. Absent: respiratory distress Cardiovascular Exam: Present: regular rate, normal rhythm GI/Abdominal exam: Present: soft. Absent: distended, tenderness Extremities exam: Present: normal inspection, normal capillary refill Skin exam: Present: warm, dry, intact Course Vital Signs 04/07/24 04/07/24 04/07/24 22:06 22:15 22:30 Temperature 96.8 F L Pulse Rate 80 87 90 Pulse Rate [ Pulse Oximetery ] Respiratory 18 26 H 28 H Rate Blood Pressure 185/108 185/108 169/115 Blood Pressure [Left Arm] O2 Sat by Pulse 95 100 94 L Oximetry 04/07/24 04/07/24 04/08/24 22:45 23:30 00:00 Temperature Pulse Rate 94 Pulse Rate [ 112 H 85 Pulse Oximetery ] Respiratory 24 22 24 Rate Blood Pressure 163/106 Blood Pressure 175/119 157/106 [Left Arm] O2 Sat by Pulse 100 100 Oximetry 04/08/24 04/08/24 00:01 00:02 Temperature Pulse Rate Pulse Rate [ 89 76 Pulse Oximetery ] Respiratory 23 21 Rate Blood Pressure Blood Pressure 176/127 158/105 [Left Arm] O2 Sat by Pulse 100 100 Oximetry Medical Decision Making - Medical Decision Making Was pt. sent in by a medical professional or institution (ELVIN Lanier, FARM TRACTOR MECHANIC, urgent care, hospital, or skilled nursing...) When possible be specific @ -No Did you speak to anyone other than the patient for history (EMS, parent, family, police, friend...)? What history was obtained from this source @ -Paramedics and the patient's sister Did you review nursing and triage notes (agree or disagree)? Why? @ -I reviewed and agree with nursing and triage notes Were old charts reviewed (outside hosp., previous admission, EMS record, old EKG, old radiological studies, urgent care reports/EKG's, skilled nursing records)? Report findings @ -No old charts were reviewed Differential Altered Mental Status: Hypoglycemia, DKA, hypercapnia, ETOH, overdose, CO poisoning, trauma, myxedema coma, HTN encephalopathy, infection, encephalitis, psychosis, intercranial hemorrhage, hepatic encephalopathy, meningitis, CVA, this is not meant to be an all-inclusive list EKG interpreted by me (3pts min.). @Significant artifact limiting assessment, suspect underlying atrial fibril lation with a right bundle branch block, rate of 67, QRS duration 156, QTc 432 poor quality EKG. X-rays interpreted by me (1pt min.). @X-rays of the chest, pelvis negative for traumatic injury, there is concern for pulmonary infiltrate. CT interpreted by me (1pt min.). @ -[CT brain negative for intracranial hemorrhage, chronic changes. CT cervical spine negative for fracture or subluxation. U/S interpreted by me (1pt. min.). @ -None done What testing was considered but not performed or refused? (CT, X-rays, U/S, labs)? Why? @ -None What meds were considered but not given or refused? Why? @ -None Did you discuss the management of the patient with other professionals (professionals i.e. ELVIN Lanier, FARM TRA[employer] MECHANIC, lab, RT, psych nurse, sexual assault social worker, lawn sprinkler installer, teacher, national insurance officer, case preparer and liner)? Give summary @ -[EMH Was smoking cessation discussed for >3mins.? @ -No Was critical care preformed (if so, how long)? @ -Yes, 35 minutes Were there social determinants of health that impacted care today? How? (Homelessness, low income, unemployed, alcoholism, drug addiction, transportation, low edu. Level, literacy, decrease access to med. care, residential, rehab)? @ -No Was there de-escalation of care discussed even if they declined (Discuss DNR or withdrawal of care, Hospice)? DNR status @ -No What co-morbidities impacted this encounter? (DM, HTN, Smoking, COPD, CAD, Cancer, CVA, ARF, Chemo, Hep., AIDS, mental health diagnosis, sleep apnea, morbid obesity)? @ -[Seizure history, metastatic cancer Was patient admitted / discharged? Hospital course, mention meds given and route, prescriptions, significant lab abnormalities, going to OR and other pertinent info. @D8-year-old male presenting with altered level consciousness, suspected seizure with postictal phase. Patient does seize in the emergency department requiring Ativan and a dose of Keppra. He has significant lab abnormalities including leukocytosis, hyponatremia, potassium 2.8. He is given IV fluids. He is given potassium replacement. He is monitored on oxygen for an extended period of time without the need for intubation. Given the infiltrate on chest x-ray and leukocytosis he is covered for pneumonia, blood cultures are obtained. Patient's vital signs remained stable he will be admitted to internal medicine with neurology on consult. Undiagnosed new problem with uncertain prognosis? @ -No Drug Therapy requiring intensive monitoring for toxicity (Heparin, Nitro, Insulin, Cardizem)? @ -No Were any procedures done? @ -No Diagnosis/symptom? @Seizure with prolonged postictal phase Acute, or Chronic, or Acute on Chronic? @ -Acute on chronic Uncomplicated (without systemic symptoms) or Complicated (systemic symptoms)? @ -Complicated Side effects of treatment? @ -No Exacerbation, Progression, or Severe Exacerbation? @ -No Poses a threat to life or bodily function? How? (Chest pain, [place], [place], pneumonia, PE, COPD, DKA, ARF, appy, cholecystitis, CVA, Diverticulitis, Homicidal, Suicidal, threat to staff... and all critical care pts) YEs status epilepticus, seizure, - Lab Data Result diagrams: 04/07/24 22:18 04/07/24 22:18 Lab Results 04/07/24 04/07/24 04/07/24 Range/Units 22:13 22:18 22:18 WBC 18.1 H (3.8-10.6) k/uL RBC 4.88 (4.30-5.90) m/uL Hgb 15.1 (13.0-17.5) gm/dL Hct 47.4 (39.0-53.0) % MCV 97.2 (80.0-100.0) fL MCH 31.0 (25.0-35.0) pg MCHC 31.8 (31.0-37.0) g/dL RDW 16.1 H (11.5-15.5) % Plt Count 269 (150-450) k/uL MPV 7.6 Neutrophils % 86 % Lymphocytes % 5 % Monocytes % 7 % Eosinophils % 0 % Basophils % 0 % Neutrophils # 15.5 H (1.3-7.7) k/uL Lymphocytes # 0.9 L (1.0-4.8) k/uL Monocytes # 1.3 H (0-1.0) k/uL Eosinophils # 0.1 (0-0.7) k/uL Basophils # 0.0 (0-0.2) k/uL Anisocytosis Slight Sodium 146 H (137-145) mmol/L Potassium 2.8 L (3.5-5.1) mmol/L Chloride 107 (98-107) mmol/L Carbon Dioxide 32 H (22-30) mmol/L Anion Gap 7 mmol/L BUN 39 H (9-20) mg/dL Creatinine 0.78 (0.66-1.25) mg/dL Est GFR (CKD-EPI)AfAm >90 (>60 ml/min/1.73 sqM) Est GFR (CKD-EPI)NonAf >90 (>60 ml/min/1.73 sqM) Glucose 151 H (74-99) mg/dL POC Glucose (mg/dL) 161 H (70-110) mg/dL POC Glu Property Utilization Manager ID Guille Rodriguez Calcium 9.2 (8.4-10.2) mg/dL Magnesium 2.5 H (1.6-2.3) mg/dL Total Bilirubin 0.3 (0.2-1.3) mg/dL AST 37 (17-59) U/L ALT 27 (4-49) U/L Alkaline Phosphatase 56 (38-126) U/L Total Protein 6.2 L (6.3-8.2) g/dL Albumin 4.3 (3.5-5.0) g/dL Urine Color Urine Appearance (Clear) Urine pH (5.0-8.0) Ur Specific [place] (1.001-1.035) Urine Protein (Negative) Urine Glucose (UA) (Negative) Urine Ketones (Negative) Urine Blood (Negative) Urine Nitrite (Negative) Urine Bilirubin (Negative) Urine Urobilinogen (<2.0) mg/dL Ur Leukocyte Esterase (Negative) Urine RBC (0-5) /hpf Urine WBC (0-5) /hpf Urine Bacteria (None) /hpf Urine Mucus (None) /hpf Salicylates 5.6 mg/dL Urine Opiates Screen (NotDetected) Ur Oxycodone Screen (NotDetected) Urine Methadone Screen (NotDetected) Acetaminophen <10.0 ug/mL Ur Barbiturates Screen (NotDetected) U Tricyclic Antidepress (NotDetected) Ur Phencyclidine Scrn (NotDetected) Ur Amphetamines Screen (NotDetected) U Methamphetamines Scrn (NotDetected) U Benzodiazepines Scrn (NotDetected) Urine Cocaine Screen (NotDetected) U Marijuana (THC) Screen (NotDetected) 04/07/24 Range/Units 23:12 WBC (3.8-10.6) k/uL RBC (4.30-5.90) m/uL Hgb (13.0-17.5) gm/dL Hct (39.0-53.0) % MCV (80.0-100.0) fL MCH (25.0-35.0) pg MCHC (31.0-37.0) g/dL RDW (11.5-15.5) % Plt Count (150-450) k/uL MPV Neutrophils % % Lymphocytes % % Monocytes % % Eosinophils % % Basophils % % Neutrophils # (1.3-7.7) k/uL Lymphocytes # (1.0-4.8) k/uL Monocytes # (0-1.0) k/uL Eosinophils # (0-0.7) k/uL Basophils # (0-0.2) k/uL Anisocytosis Sodium (137-145) mmol/L Potassium (3.5-5.1) mmol/L Chloride (98-107) mmol/L Carbon Dioxide (22-30) mmol/L Anion Gap mmol/L BUN (9-20) mg/dL Creatinine (0.66-1.25) mg/dL Est GFR (CKD-EPI)AfAm (>60 ml/min/1.73 sqM) Est GFR (CKD-EPI)NonAf (>60 ml/min/1.73 sqM) Glucose (74-99) mg/dL POC Glucose (mg/dL) (70-110) mg/dL POC Glu Property Utilization Manager ID Calcium (8.4-10.2) mg/dL Magnesium (1.6-2.3) mg/dL Total Bilirubin (0.2-1.3) mg/dL AST (17-59) U/L ALT (4-49) U/L Alkaline Phosphatase (38-126) U/L Total Protein (6.3-8.2) g/dL Albumin (3.5-5.0) g/dL Urine Color Colorless Urine Appearance Clear (Clear) Urine pH 7.0 (5.0-8.0) Ur Specific [place] 1.010 (1.001-1.035) Urine Protein Negative (Negative) Urine Glucose (UA) Negative (Negative) Urine Ketones Negative (Negative) Urine Blood Trace H (Negative) Urine Nitrite Negative (Negative) Urine Bilirubin Negative (Negative) Urine Urobilinogen <2.0 (<2.0) mg/dL Ur Leukocyte Esterase Negative (Negative) Urine RBC 4 (0-5) /hpf Urine WBC <1 (0-5) /hpf Urine Bacteria Rare H (None) /hpf Urine Mucus Rare H (None) /hpf Salicylates mg/dL Urine Opiates Screen Not Detected (NotDetected) Ur Oxycodone Screen Not Detected (NotDetected) Urine Methadone Screen Not Detected (NotDetected) Acetaminophen ug/mL Ur Barbiturates Screen Not Detected (NotDetected) U Tricyclic Antidepress Not Detected (NotDetected) Ur Phencyclidine Scrn Not Detected (NotDetected) Ur Amphetamines Screen Not Detected (NotDetected) U Methamphetamines Scrn Not Detected (NotDetected) U Benzodiazepines Scrn Detected H (NotDetected) Urine Cocaine Screen Not Detected (NotDetected) U Marijuana (THC) Screen Detected H (NotDetected) Critical Care Time Critical Care Time: Yes Total Critical Care Time: 35 Disposition Clinical Impression: Altered mental status, Generalized seizure, Metastatic cancer to brain, Leukocytosis Disposition: ADMITTED IP TO THIS [facility] Condition: Stable Instructions (If sedation given, give patient instructions): Seizure/Epilepsy Discharge Instructions & Follow-Up Is patient prescribed a controlled substance at d/c from ED?: No Referrals: Manjeet Del Rosario MD [Primary Care Provider] - 1-2 days Time of Disposition: 01:20
[2024-04-07 22:46] LABS: ALT 27 U/L (4-49); AST 37 U/L (17-59); Acetaminophen <10.0 ug/mL; African American GFR (CKD) >90 (>60 ml/min/1.73 sqM); Albumin 4.3 g/dL (3.5-5.0); Alkaline Phosphatase 56 U/L (38-126); Anion Gap 7 mmol/L; Blood Urea Nitrogen 39 mg/dL (9-20); Calcium 9.2 mg/dL (8.4-10.2); Carbon Dioxide 32 mmol/L (22-30); Chloride 107 mmol/L (98-107); Glucose 151 mg/dL (74-99); Magnesium 2.5 mg/dL (1.6-2.3); Non-African American GFR(CKD) >90 (>60 ml/min/1.73 sqM); Potassium 2.8 mmol/L (3.5-5.1); Salicylate 5.6 mg/dL; Sodium 146 mmol/L (137-145); Total Bilirubin 0.3 mg/dL (0.2-1.3); Total Protein 6.2 g/dL (6.3-8.2)
[2024-04-08 00:02] LABS: Appearance,Urine Clear (Clear); Bacteria,Urine Rare /hpf; Bilirubin,Urine Negative (Negative); Blood,Urine Trace (Negative); Color,Urine Colorless; Glucose,Urine (UA) Negative (Negative); Ketones,Urine Negative (Negative); Leukocyte Esterase,Urine Negative (Negative); Mucus,Urine Rare /hpf; Nitrite,Urine Negative (Negative); Protein,Urine Negative (Negative); RBC,Urine 4 /hpf (0-5); Urobilinogen,Urine <2.0 mg/dL (<2.0); WBC,Urine <1 /hpf (0-5)
--- NOTE | 2024-04-08 00:02 | CT ---
EXAM: CT Head Without Intravenous Contrast CLINICAL HISTORY: ITS.REASON CT Reason: AMS/fall TECHNIQUE: Axial computed tomography images of the head/brain without intravenous contrast. CTDI is 54.4 mGy and DLP is 1370.3 mGy-cm. This CT exam was performed using one or more of the following dose reduction techniques: automated exposure control, adjustment of the mA and/or kV according to patient size, and/or use of iterative reconstruction technique. COMPARISON: Head CT 11/07/23. FINDINGS: Brain: Fairly symmetrical bilateral parietal encephalomalacia with associated calcifications, stable. No mass effect or acute infarct. No acute hemorrhage. Mild atrophy and chronic white matter disease. Ventricles: No hydrocephalus or midline shift. Bones/joints: Previous bilateral parietal craniotomy. No skull fracture. Soft tissues: No scalp hematoma. Visualized Sinuses: Clear. Mastoid air cells: No mastoid effusion. IMPRESSION: 1. Stable partially calcified encephalomalacia bilateral parietal lobes and age-related findings. 2. No skull fracture, bleed, or acute intracranial abnormality. EXAM: CT Cervical Spine Without Intravenous Contrast CLINICAL HISTORY: ITS.REASON CT Reason: AMS/fall TECHNIQUE: Axial computed tomography images of the cervical spine without intravenous contrast. This CT exam was performed using one or more of the following dose reduction techniques: automated exposure control, adjustment of the mA and/or kV according to patient size, and/or use of iterative reconstruction technique. Moderate motion artifact. COMPARISON: None. FINDINGS: Vertebrae: No acute fracture. Discs/spinal canal/neural foramina: Severe degenerative disc disease in the mid and lower cervical spine. Soft tissues: Emphysema. IMPRESSION: 1. Severe degenerative disc disease. 2. No fracture or acute bony abnormality.
[2024-04-08 00:06] LABS: Amphetamine Screen,Urine Not Detected (NotDetected); Barbiturate Screen,Urine Not Detected (NotDetected); Benzodiazepines Screen,Urine Detected (NotDetected); Cocaine Screen,Urine Not Detected (NotDetected); Methadone Screen, Urine Not Detected (NotDetected); Opiate Screen,Urine Not Detected (NotDetected); Oxycodone Screen, Urine Not Detected (NotDetected); Phencyclidine Screen,Urine Not Detected (NotDetected); Tricyclic Antidepressant,Urine Not Detected (NotDetected); Urn Cannabinoid Scrn Detected (NotDetected)
[2024-04-08] MEDS: POTASSIUM CHLORIDE 10 MEQ in WATER FOR INJECTION 1 100ML.BAG IVPB SCH ×3 (00:23→23:30)
--- NOTE | 2024-04-08 00:26 | XR ---
EXAM: XR Chest, 1 View CLINICAL HISTORY: ITS.REASON XR Reason: fall TECHNIQUE: Frontal view of the chest. COMPARISON: Chest CT 10/23/23. FINDINGS: Lungs: Mild interstitial beginning in the right lower lobe, nonspecific, cannot rule out pneumonia. Stable scarring in the left midlung field. No consolidation. Pleural space: No pneumothorax. Heart: Stable, mild cardiomegaly. Mediastinum: Ectatic aorta. Bones/Soft Tissues: No acute abnormality. IMPRESSION: 1. Question mild right lower lobe infiltrate.
--- NOTE | 2024-04-08 00:28 | XR ---
EXAM: XR Pelvis, 1 or 2 Views CLINICAL HISTORY: ITS.REASON XR Reason: fall TECHNIQUE: Frontal view of the pelvis. COMPARISON: No relevant prior studies available. FINDINGS: Bones/joints: Pedicle screws and vertical stabilizing rods at the lumbosacral junction. Severe left and moderate right hip osteoarthritis. No acute fracture. No dislocation. Soft tissues: Unremarkable. IMPRESSION: 1. Postsurgical change of the lumbosacral junction. 2. Hip osteoarthritis, left greater than right.
[2024-04-08] MEDS: SODIUM CHLORIDE 0.9% 1,000 ML IV SCH (00:30)
[2024-04-08] MEDS ORDERED: NALOXONE 0.4 MG/ML 1 ML VIAL IV PRN (01:13)
[2024-04-08 01:32] LABS: Glucose,Whole Blood 91 mg/dL (70-110)
[2024-04-08] MEDS: AMPICILLIN-SULBACTAM 3 GM in SODIUM CHLORIDE 0.9% 100 ML IVPB SCH (01:50)
[2024-04-08] MEDS: LORazepam 2 MG/ML INJ IV PRN ×2 (04:39→22:52)
[2024-04-08 10:16] LABS: Potassium 3.4 mmol/L (3.5-5.1)
[2024-04-08] MEDS ORDERED: Potassium Replacement Protocol 1 EACH MISC MISCELLANE PRN ×2 (10:25→23:11)
[2024-04-08] MEDS: HALOPERIDOL LACTATE 5 MG/ML 1 ML VIAL IVP PRN ×2 (10:57→15:18)
[2024-04-08] MEDS: HALOPERIDOL LACTATE 5 MG/ML 1 ML VIAL IVP ONE (13:02)
--- NOTE | 2024-04-08 14:54 | P.CNNES ---
History of Present Illness Consult date: 04/08/24 Requesting physician: Joon Quach Reason for Consult: Seizure History of Present Illness: Patient is a 58-year-old male came to the hospital by ambulance yesterday at 10:03 PM. As per EMS flowsheet when they arrived, patient was laying on the ground, supine in the backyard of the home. Patient was conscious, breathing irregularly with snoring respiration at 10 to 12/min. Family mentioned that kelly banerjee has history of brain cancer but is sized from his lungs, with seizures per result of the disease process. Family mentioned that the last time he was normal was an hour prior to finding him. Unknown if patient experiences seizure how he fell or what happened as a result. There was some concern if patient has opioid overdose with depressed respiration and constricted pupils. Patient was noted to be hypoxic and was placed on nonrebreather at 10 L/min, which did improve his oxygenation. EKG showed some premature atrial contractions with irregular rate. Patient was given 0.5 mg of Narcan initially with mild response with improvement in regularity of respirations and rate. Patient attempted to remove nonrebreather then return to unresponsiveness with exception to painful stimuli. He was given a second dose of Narcan 0.5 mg with a similar response. He was then given 1 mg of Narcan the third time. He was then given the fourth dose of 0.5 mg of Narcan. Patient's vitals at the scene was blood pressure 173/108, pulse rate 75 respiration 10, saturation 84% initially. Blood sugar was 216 mg/dL. Blood test shows WBC 18.1 normal hemoglobin and platelets. Sodium 146 potassium 2.8, hepatic panel is normal, renal functions normal. UA negative. Urine drug screen positive for benzodiazepine and marijuana. Magnesium is normal. Repeat potassium 3.4. EKG showed atrial fibrillation, right bundle branch block. CT head showed stable partially calcified encephalomalacia bilateral parietal lobes and age-related findings. No acute skull fracture, bleed or acute process. I personally reviewed CT head, agree with the findings. On my review, the calcification is more prominent on current study as compared to the CT from 11/07/2023. CT of the cervical spine showed severe degenerative disc disease. No fracture or acute bony abnormality. Chest x-ray showed question mild right lower lobe infiltrate. Pelvic x-ray showed postsurgical changes of the lumbosacral junction. Hip osteoarthritis. Left greater than right. Patient has a witnessed seizure in the ER at 10:13 PM last night, in which his eyes rolled to the right side, smacking vocal noises and shaking all extremities with drooling, urine incontinence. Patient went into postictal state afterwards. Patient's sister has mentioned that patient usually has a very prolonged postictal state. Patient's sister also has mentioned that patient is not fully compliant with his medications. Patient at present is obtunded, unresponsive to calling his name. He does withdraw and moves extremities equally to noxious stimulus. Face is symmetric. Pupils are equal, round and reacting. No obvious seizure activity noticed. Per nursing report, patient is either in this state, or when he is more alert, he wants to get out of bed, tries to swing on the nurses and becomes irritable. Patient has presented with new onset seizure on 11/27/2022 when I saw the patient in the hospital. Patient has initially presented with 2 brain masses in April 2022. He was transferred to [facility] and underwent resection of H, followed by apparent postoperative bed SRS to each in June 2022. He then underwent carboplatin/etoposide followed by consolidative chest radiotherapy. Patient was then started on atezolizumab. He developed a new left temporal lobe lesion in August 2023 and underwent SRS. Review of Systems ROS unobtainable: due to mental status Past Medical History Past Medical History: Atrial Fibrillation, Hypertension, Seizure Disorder Additional Past Medical History / Comment(s): bowel obstruction, cervical spinal stenosis, lung cancer with brain metastases, seizure 11/26/22. History of Any Multi-Drug Resistant Organisms: None Reported Past Surgical History: Back Surgery Additional Past Surgical History / Comment(s): Colostomy and reverse colostomy, L4-L5 fusion, brain surgery Past Anesthesia/Blood Transfusion Reactions: No Reported Reaction Past Psychological History: No Psychological Hx Reported Smoking Status: Current every day smoker Past Alcohol Use History: None Reported Past Drug Use History: Marijuana - Past Family History Mother Family Medical History: Cancer, Hypertension Additional Family Medical History / Comment(s): lung CA Father Family Medical History: Diabetes Mellitus Medications and Allergies Home Medications Medication Instructions Recorded Confirmed Type Pantoprazole [Protonix] 40 mg PO DAILY 11/26/22 04/08/24 History Metoprolol Succinate (ER) [Toprol 100 mg PO BID #60 tab 04/25/23 04/08/24 Rx XL] Albuterol Inhaler [Ventolin Hfa 1 puff INHALATION RT-QID PRN 11/07/23 04/08/24 History Inhaler] Zolpidem Tartrate [Ambien Cr] 12.5 mg PO HS PRN 11/07/23 04/08/24 History buprenorphine HCL [Subutex] 8 mg PO BID 11/07/23 04/08/24 History dilTIAZem HCL [Cardizem CD] 240 mg PO DAILY 11/07/23 04/08/24 History lisinopriL [Zestril] 5 mg PO DAILY 11/07/23 04/08/24 History Aspirin 81 mg PO DAILY 04/08/24 04/08/24 History Atorvastatin [Lipitor] 10 mg PO DAILY 04/08/24 04/08/24 History levETIRAcetam [Keppra] 1,000 mg PO BID 04/08/24 04/08/24 History Allergies Allergy/AdvReac Type Severity Reaction Status Date / Time cephalexin [From Keflex] Allergy Confusion, Verified 04/08/24 11:37 dizziness and syncope Physical Examination - Vital Signs Vital Signs: Vital Signs Temp Pulse Pulse Resp BP BP Pulse Ox 04/08/24 08:00 99.1 F 70 18 131/97 04/08/24 05:51 71 21 140/96 96 04/08/24 05:00 88 20 159/108 96 04/08/24 04:30 90 22 153/106 96 04/08/24 03:00 75 22 155/102 100 04/08/24 02:00 75 22 142/100 04/08/24 01:00 89 25 H 160/102 100 04/08/24 00:02 76 21 158/105 100 04/08/24 00:01 89 23 176/127 100 04/08/24 00:00 94 24 163/106 100 04/07/24 23:30 85 22 157/106 100 04/07/24 22:45 112 H 24 175/119 04/07/24 22:30 90 28 H 169/115 94 L 04/07/24 22:15 87 26 H 185/108 100 04/07/24 22:06 96.8 F L 80 18 185/108 95 Intake and Output 04/07/24 04/08/24 04/08/24 22:59 06:59 14:59 Intake Total 550 Output Total 1400 600 Balance -1400 -50 Intake: IV 550 0.9 450 Ampicillin-Sulbactam 3 gm 100 In Sodium Chloride 0.9% 100 ml @ 200 mls/hr IVPB Q8H [facility] Rx#:[id number] Output: Urine 1400 600 Other: Voiding Method Indwelling Catheter Weight 68.039 kg Patient is a middle aged male, who is obviously postictal, obtunded, snoring. No obvious seizure-like activity noticed at this time. Patient is obtunded. Attention, concentration are severely impaired and fund of knowledge cannot be assessed. Patient did not answer to any questions due to obtundation. On cranial nerve examination, pupils are equal, round and reacting to light, gaze is midline. Patient tries to move his head [id number] on checking for pupil reactivity. His face is symmetric. Lower cranial nerves cannot be tested. On muscle strength testing, patient did not squeeze the hands on either side. However he does try to withdraw his extremities to painful stimuli bilaterally in the arms and legs. Deep tendon reflexes are symmetric and plantars are downgoing bilaterally. Sensory to touch cannot be assessed. Response to painful stimuli equal as above. Cerebellar function cannot be tested. Tone and bulk of muscles normal. Gait deferred.. On general examination, there is no carotid bruit or murmur, S1-S2 audible. Chest is clear on consultation. Abdomen is soft nontender. No organomegaly, bowel sounds present. Peripheral pulses are present. No peripheral edema. Results - Laboratory Findings CBC and BMP: 04/07/24 22:18 04/08/24 09:49 Abnormal Lab Findings: Abnormal Labs 04/07/24 04/07/24 04/07/24 22:13 22:18 22:18 WBC 18.1 H RDW 16.1 H Neutrophils # 15.5 H Lymphocytes # 0.9 L Monocytes # 1.3 H Sodium 146 H Potassium 2.8 L Carbon Dioxide 32 H BUN 39 H Glucose 151 H POC Glucose (mg/dL) 161 H Magnesium 2.5 H Total Protein 6.2 L Urine Blood Urine Bacteria Urine Mucus U Benzodiazepines Scrn U Marijuana (THC) Screen 04/07/24 04/08/24 23:12 09:49 WBC RDW Neutrophils # Lymphocytes # Monocytes # Sodium Potassium 3.4 L Carbon Dioxide BUN Glucose POC Glucose (mg/dL) Magnesium Total Protein Urine Blood Trace H Urine Bacteria Rare H Urine Mucus Rare H U Benzodiazepines Scrn Detected H U Marijuana (THC) Screen Detected H Assessment and Plan Assessment: * Breakthrough seizure, with prolonged postictal state. He had similar presentation of prolonged postictal state in the past as well. * Metastatic lung cancer, with cerebral metastasis. * Possible aspiration pneumonia due to seizure * Hypokalemia, improved * Hypernatremia, mild * Possible medication noncompliance * Tobacco use * Marijuana use * Atrial fibrillation, currently not on anticoagulation. Plan: * Patient had a breakthrough seizure, unclear cause, ?perhaps related to medication noncompliance. * Patient was taking Keppra 1000 mg twice daily. Patient received 2000 mg loading dose Keppra in the ER last night after his witnessed seizure. * We will resume Keppra 1000 mg IV twice daily from now. * Patient is currently in postictal state. No obvious seizure-like activity noted. * If mentation does not improve, will consider EEG in the morning. * Patient on aspirin for atrial fibrillation. We will defer to IM need for any anticoagulation. * Patient on Unasyn for aspiration pneumonia. * Neurology will follow. Thank you for the consult.
[2024-04-08] MEDS: levETIRAcetam IV 500 MG/5 ML VIAL IVP SCH (14:59)
[2024-04-08 15:35] LABS: African American GFR (CKD) >90 (>60 ml/min/1.73 sqM); Anion Gap 2 mmol/L; Blood Urea Nitrogen 21 mg/dL (9-20); Calcium 9.1 mg/dL (8.4-10.2); Carbon Dioxide 29 mmol/L (22-30); Chloride 107 mmol/L (98-107); Glucose 110 mg/dL (74-99); Non-African American GFR(CKD) >90 (>60 ml/min/1.73 sqM); Potassium 3.8 mmol/L (3.5-5.1); Sodium 138 mmol/L (137-145)
[2024-04-08] MEDS: LORazepam 2 MG/ML INJ ONE (16:24)
[2024-04-08] MEDS: DEXMEDETOMIDINE/0.9% NACL(PMX) 400 MCG in EMPTY BAG 1 BAG IV SCH (16:26)
--- NOTE | 2024-04-08 18:07 | P.CNPUL ---
History of Present Illness Consult date: 04/08/24 Requesting physician: Manjeet Del Rosario Reason for consult: other Chief complaint: Seizure with prolonged post ictal phase History of present illness: This is a 58-year-old white male brought into the ER yesterday at 10:03 PM, patient is known to have history of multiple medical problems including seizure disorder, atrial fibrillation, hypertension, history of lung cancer and brain metastasis. Patient also had previous history of brain surgery. Patient was brought into the ER mostly with altered level of consciousness, suspected seizure. Apparently he was seen by neurology on consultation, his seizure medications were addressed, patient was extremely restless and agitated down in the ER, and the decision was made to transfer the patient to the ICU. In the ICU, patient was extremely restless and agitated, took almost 4 people to hold him down, and he required restraints. I saw the patient in the ICU and I recommended Ativan to be given and also recommended patient to be started on Precedex. Apparently according to the sister, patient had previous history of seizures activity with prolonged postictal phase. Cannot get any information from the patient himself. Patient seems to be restless agitated, and does not seem to be coherent Review of Systems ROS unobtainable: due to mental status Past Medical History Past Medical History: Atrial Fibrillation, Hypertension, Seizure Disorder Additional Past Medical History / Comment(s): bowel obstruction, cervical spinal stenosis, lung cancer with brain metastases, seizure 11/26/22. History of Any Multi-Drug Resistant Organisms: None Reported Past Surgical History: Back Surgery Additional Past Surgical History / Comment(s): Colostomy and reverse colostomy, L4-L5 fusion, brain surgery Past Anesthesia/Blood Transfusion Reactions: No Reported Reaction Past Psychological History: No Psychological Hx Reported Smoking Status: Current every day smoker Past Alcohol Use History: None Reported Past Drug Use History: Marijuana - Past Family History Mother Family Medical History: Cancer, Hypertension Additional Family Medical History / Comment(s): lung CA Father Family Medical History: Diabetes Mellitus Medications and Allergies Home Medications Medication Instructions Recorded Confirmed Type Pantoprazole [Protonix] 40 mg PO DAILY 11/26/22 04/08/24 History Metoprolol Succinate (ER) [Toprol 100 mg PO BID #60 tab 04/25/23 04/08/24 Rx XL] Albuterol Inhaler [Ventolin Hfa 1 puff INHALATION RT-QID PRN 11/07/23 04/08/24 History Inhaler] Zolpidem Tartrate [Ambien Cr] 12.5 mg PO HS PRN 11/07/23 04/08/24 History buprenorphine HCL [Subutex] 8 mg PO BID 11/07/23 04/08/24 History dilTIAZem HCL [Cardizem CD] 240 mg PO DAILY 11/07/23 04/08/24 History lisinopriL [Zestril] 5 mg PO DAILY 11/07/23 04/08/24 History Aspirin 81 mg PO DAILY 04/08/24 04/08/24 History Atorvastatin [Lipitor] 10 mg PO DAILY 04/08/24 04/08/24 History levETIRAcetam [Keppra] 1,000 mg PO BID 04/08/24 04/08/24 History Allergies Allergy/AdvReac Type Severity Reaction Status Date / Time cephalexin [From Keflex] Allergy Confusion, Verified 04/08/24 11:37 dizziness and syncope Physical Exam Vitals: Vital Signs Temp Pulse Pulse Resp BP BP Pulse Ox 04/08/24 17:25 97 04/08/24 17:00 94 23 168/112 97 04/08/24 16:30 109 H 22 157/112 94 L 04/08/24 16:22 27 H 93 L 04/08/24 12:00 86 14 139/95 95 04/08/24 08:00 99.1 F 70 18 131/97 04/08/24 05:51 71 21 140/96 96 04/08/24 05:00 88 20 159/108 96 04/08/24 04:30 90 22 153/106 96 04/08/24 03:00 75 22 155/102 100 04/08/24 02:00 75 22 142/100 04/08/24 01:00 89 25 H 160/102 100 04/08/24 00:02 76 21 158/105 100 04/08/24 00:01 89 23 176/127 100 04/08/24 00:00 94 24 163/106 100 04/07/24 23:30 85 22 157/106 100 04/07/24 22:45 112 H 24 175/119 04/07/24 22:30 90 28 H 169/115 94 L 04/07/24 22:15 87 26 H 185/108 100 04/07/24 22:06 96.8 F L 80 18 185/108 95 Intake and Output 04/08/24 04/08/24 04/08/24 06:59 14:59 22:59 Intake Total 550 656.379 Output Total 8364 325 8690 Balance -1400 -50 -343.621 Intake: IV 550 650 0.9 450 150 Ampicillin-Sulbactam 3 gm 100 100 In Sodium Chloride 0.9% 100 ml @ 200 mls/hr IVPB Q8H [facility] Rx#:[id number] Potassium Chloride 10 meq 400 In Water For Injection 1 100ml.bag @ 100 mls/hr IVPB Q1HR [facility] Rx#: [id number] Intake, IV Titration 6.379 Amount Dexmedetomidine/0.9% NaCl 6.379 (Pmx) 400 mcg In Empty Bag 1 bag @ 0.2 MCG/KG/HR 3.402 mls/hr IV .Q24H [facility] Rx#:[id number] Output: Urine 4161 603 6071 Other: Voiding Method Indwelling Catheter Weight 68.039 kg General: Reveals a 58-year-old white male, obtunded, restless, agitated, attention and concentration are severely impaired. Skin: Skin is warm and dry and no rashes or lesions are noted. Eye: Pupils are equal, round and reactive to light, extra-ocular movements are intact; there is normal conjunctiva bilaterally. Ears, nose, mouth and throat: There are moist mucous membranes and no oral lesions. Neck: The neck is supple, there is no tenderness or JVD. Cardiovascular: There is a regular rate and rhythm. No murmur, rub or gallop is appreciated. Respiratory: Clear bilaterally no crackles rhonchi or wheezes Gastrointestinal: Soft, non-distended, non-tender abdomen without masses or organomegaly noted. There is no rebound or guarding present. Bowel sounds are unremarkable. Musculoskeletal: No evidence of deformities, seems to be having no limitation range of motion Neurological: Please refer to full neurological exam by neurology, patient is obtunded, noncoherent, and extremely agitated and restless, could not assess fully Psychiatric: Could not fully assess because of his extreme agitation and restlessness. Results - Laboratory Findings CBC and BMP: 04/07/24 22:18 04/08/24 14:43 Abnormal lab findings: Abnormal Labs 0704/07/24 04/07/24 22:13 22:18 22:18 WBC 18.1 H RDW 16.1 H Neutrophils # 15.5 H Lymphocytes # 0.9 L Monocytes # 1.3 H Sodium 146 H Potassium 2.8 L Carbon Dioxide 32 H BUN 39 H Creatinine Glucose 151 H POC Glucose (mg/dL) 161 H Magnesium 2.5 H Total Protein 6.2 L Procalcitonin Urine Blood Urine Bacteria Urine Mucus U Benzodiazepines Scrn U Marijuana (THC) Screen 04/07/24 04/08/24 04/08/24 23:12 09:49 09:49 WBC RDW Neutrophils # Lymphocytes # Monocytes # Sodium Potassium 3.4 L Carbon Dioxide BUN Creatinine Glucose POC Glucose (mg/dL) Magnesium Total Protein Procalcitonin 0.32 H Urine Blood Trace H Urine Bacteria Rare H Urine Mucus Rare H U Benzodiazepines Scrn Detected H U Marijuana (THC) Screen Detected H 04/08/24 14:43 WBC RDW Neutrophils # Lymphocytes # Monocytes # Sodium Potassium Carbon Dioxide BUN 21 H Creatinine 0.43 L Glucose 110 H POC Glucose (mg/dL) Magnesium Total Protein Procalcitonin Urine Blood Urine Bacteria Urine Mucus U Benzodiazepines Scrn U Marijuana (THC) Screen - Diagnostic Findings Chest x-ray: image reviewed (Minimal left basilar atelectasis doubt pneumonia.) Additional studies: CT head and cervical spine showed stable partially calcified encephalomalacia/bilateral parietal lobes, no intracranial abnormality otherwise, and cervical spine was unremarkable. Evidence of previous parietal craniotomy noted. Assessment and Plan Assessment: Impression: Breakthrough seizure with prolonged postictal state History of metastatic lung cancer with cerebral metastasis not truly seen on CT of the brain Doubt pneumonia I believe the patient has mostly left basilar atelectasis Tobacco dependence syndrome and history of marijuana use Chronic atrial fibrillation History of hypertension Recommendation: Agree with the present treatment plan and supportive care measures Continue seizure meds as per neurology on the case Continue seizure precautions while in the ICU Start patient on Precedex and titrate accordingly GI and DVT prophylaxis Will continue to follow. Time with Patient: Greater than 30
--- NOTE | 2024-04-08 19:33 | P.HPIM ---
History of Present Illness H&P Date: 04/08/24 Chief Complaint: Seizure This is a 58-year-old gentleman with past medical history significant for seizure disorder, atrial fibrillation, hypertension metastatic lung cancer with brain mets, brain surgery, completed radiation of brain and thorax as well as chemo therapy, new right temporal lobe lesion per MRI 11/25 and multiple other medical issues transported by EMS to the ER with altered mental status, suspected seizure with prolonged postictal phase.Discovered by sister, unresponsive, outside, seizure suspected. Last seen well approximately 2 1/2-3 hours prior.Sister reported to ER that patient has a history of seizures with prolonged postictal phase. Patient did have a seizure in the ER, received Ativan and Keppra. IV fluid hydration, potassium supplementation with Unasyn initiated in the ER. While in the ER patient was extremely restless, agitated, combative, swinging at staff-required multiple staff to restrain. Sitter maintained at bedside. Recently medicated and currently sedated. Radiology studies reviewed/chest x-ray question mild right lower lobe infiltrate- nonspecific. Review of Systems Review of systems unable to obtain at this time given patient's current mental status Past Medical History Past Medical History: Atrial Fibrillation, Hypertension, Seizure Disorder Additional Past Medical History / Comment(s): bowel obstruction, cervical spinal stenosis, lung cancer with brain metastases, seizure 11/26/22. History of Any Multi-Drug Resistant Organisms: None Reported Past Surgical History: Back Surgery Additional Past Surgical History / Comment(s): Colostomy and reverse colostomy, L4-L5 fusion, brain surgery Past Anesthesia/Blood Transfusion Reactions: No Reported Reaction Past Psychological History: No Psychological Hx Reported Smoking Status: Current every day smoker Past Alcohol Use History: None Reported Past Drug Use History: Marijuana - Past Family History Mother Family Medical History: Cancer, Hypertension Additional Family Medical History / Comment(s): lung CA Father Family Medical History: Diabetes Mellitus Medications and Allergies Home Medications Medication Instructions Recorded Confirmed Type Pantoprazole [Protonix] 40 mg PO DAILY 11/26/22 04/08/24 History Metoprolol Succinate (ER) [Toprol 100 mg PO BID #60 tab 04/25/23 04/08/24 Rx XL] Albuterol Inhaler [Ventolin Hfa 1 puff INHALATION RT-QID PRN 11/07/23 04/08/24 History Inhaler] Zolpidem Tartrate [Ambien Cr] 12.5 mg PO HS PRN 11/07/23 04/08/24 History buprenorphine HCL [Subutex] 8 mg PO BID 11/07/23 04/08/24 History dilTIAZem HCL [Cardizem CD] 240 mg PO DAILY 11/07/23 04/08/24 History lisinopriL [Zestril] 5 mg PO DAILY 11/07/23 04/08/24 History Aspirin 81 mg PO DAILY 04/08/24 04/08/24 History Atorvastatin [Lipitor] 10 mg PO DAILY 04/08/24 04/08/24 History levETIRAcetam [Keppra] 1,000 mg PO BID 04/08/24 04/08/24 History Allergies Allergy/AdvReac Type Severity Reaction Status Date / Time cephalexin [From Keflex] Allergy Confusion, Verified 04/08/24 11:37 dizziness and syncope Physical Exam Vitals: Vital Signs Temp Pulse Pulse Resp BP BP Pulse Ox 04/08/24 12:00 86 14 139/95 95 04/08/24 08:00 99.1 F 70 18 131/97 04/08/24 05:51 71 21 140/96 96 04/08/24 05:00 88 20 159/108 96 04/08/24 04:30 90 22 153/106 96 04/08/24 03:00 75 22 155/102 100 04/08/24 02:00 75 22 142/100 04/08/24 01:00 89 25 H 160/102 100 04/08/24 00:02 76 21 158/105 100 04/08/24 00:01 89 23 176/127 100 04/08/24 00:00 94 24 163/106 100 04/07/24 23:30 85 22 157/106 100 04/07/24 22:45 112 H 24 175/119 04/07/24 22:30 90 28 H 169/115 94 L 04/07/24 22:15 87 26 H 185/108 100 04/07/24 22:06 96.8 F L 80 18 185/108 95 Intake and Output 04/07/24 04/08/24 04/08/24 22:59 06:59 14:59 Intake Total 550 Output Total 1400 600 Balance -1400 -50 Intake: IV 550 0.9 450 Ampicillin-Sulbactam 3 gm 100 In Sodium Chloride 0.9% 100 ml @ 200 mls/hr IVPB Q8H [facility] Rx#:[id number] Output: Urine 1400 600 Other: Voiding Method Indwelling Catheter Weight 68.039 kg 68.039 kg Gen: This is a 58-year-old male, obtunded well-developed, well-nourished ,recently sedated HEENT: Head is atraumatic, normocephalic. Pupils equal, round sclerae is anicteric. NECK: Supple. No JVD. No lymphadenopathy. No thyromegaly. LUNGS: Unlabored, equal air entry, clear to auscultation. No wheezes or rhonchi. No intercostal retractions. HEART: Regular rate and rhythm. No murmur. ABDOMEN: Soft. Nondistended, nontender, bowel sounds are present. No masses noted. No guarding, no rigidity, no tenderness. EXTREMITIES: No pedal edema. No calf tenderness. NEUROLOGICAL: Unable to assess at this time, patient obtunded Results CBC & Chem 7: 04/07/24 22:18 04/08/24 14:43 Labs: Abnormal Lab Results - Last 24 Hours (Table) 04/07/24 04/07/24 04/07/24 Range/Units 22:13 22:18 22:18 WBC 18.1 H (3.8-10.6) k/uL RDW 16.1 H (11.5-15.5) % Neutrophils # 15.5 H (1.3-7.7) k/uL Lymphocytes # 0.9 L (1.0-4.8) k/uL Monocytes # 1.3 H (0-1.0) k/uL Sodium 146 H (137-145) mmol/L Potassium 2.8 L (3.5-5.1) mmol/L Carbon Dioxide 32 H (22-30) mmol/L BUN 39 H (9-20) mg/dL Glucose 151 H (74-99) mg/dL POC Glucose (mg/dL) 161 H (70-110) mg/dL Magnesium 2.5 H (1.6-2.3) mg/dL Total Protein 6.2 L (6.3-8.2) g/dL Urine Blood (Negative) Urine Bacteria (None) /hpf Urine Mucus (None) /hpf U Benzodiazepines Scrn (NotDetected) U Marijuana (THC) Screen (NotDetected) 04/07/24 04/08/24 Range/Units 23:12 09:49 WBC (3.8-10.6) k/uL RDW (11.5-15.5) % Neutrophils # (1.3-7.7) k/uL Lymphocytes # (1.0-4.8) k/uL Monocytes # (0-1.0) k/uL Sodium (137-145) mmol/L Potassium 3.4 L (3.5-5.1) mmol/L Carbon Dioxide (22-30) mmol/L BUN (9-20) mg/dL Glucose (74-99) mg/dL POC Glucose (mg/dL) (70-110) mg/dL Magnesium (1.6-2.3) mg/dL Total Protein (6.3-8.2) g/dL Urine Blood Trace H (Negative) Urine Bacteria Rare H (None) /hpf Urine Mucus Rare H (None) /hpf U Benzodiazepines Scrn Detected H (NotDetected) U Marijuana (THC) Screen Detected H (NotDetected) Thrombosis Risk Factor Assmnt - Choose All That Apply Any of the Below Risk Factors Present?: Yes Each Factor Represents 1 point: Medical pt on bed rest Other Risk Factors: Yes Each Risk Factor Represents 2 Points: Malignancy Thrombosis Risk Factor Assessment Total Risk Factor Score: 3 Thrombosis Risk Factor Assessment Level: Moderate Risk Assessment and Plan Assessment: Seizure disorder with breakthrough seizure, prolonged postictal state, possibly secondary to brain metastasis Hypertension Left basilar atelectasis, possible aspiration pneumonia secondary to #1, procal citonin ordered Hypokalemia Metastatic lung cancer with cerebral metastasis, status post radiation and chemotherapy,new temporal lesions noted in November 2023 Chronic paroxysmal atrial fibrillation, not on anticoagulation Severe left and moderate right hip osteoarthritis Severe degenerative disc disease Ongoing nicotine dependence Marijuana use Plan: Continue on current medication regimen ,monitoring and symptomatic treatment. Empiric antibiotics. repeat electrolytes/BMP, magnesium, proc alcitonin ordered. Neurology and pulmonary/instruments sales representative consult in place. Seizure meds as per neurology .maintain seizure precautions. prognosis guarded given multiple complex medical issues. Maintain supportive care. The impression and plan of care has been dictated as directed. : I performed a history and examination of this patient, discussed the same with the dictator. I agree with the dictator's note ,documented as a scribe. Any additional findings or plans will be noted.
[2024-04-08] MEDS: PANTOPRAZOLE 40 MG/10 ML VIAL IVP SCH (21:21)
[2024-04-09] MEDS: BUPRENORPHINE HCL 8 MG SUBLINGUAL SCH (01:26)
[2024-04-09 06:45] LABS: African American GFR (CKD) >90 (>60 ml/min/1.73 sqM); Anion Gap 5 mmol/L; Basophils # (A) 0.1 k/uL (0-0.2); Basophils % (A) 0 %; Blood Urea Nitrogen 16 mg/dL (9-20); Carbon Dioxide 24 mmol/L (22-30); Chloride 106 mmol/L (98-107); Eosinophils # (A) 0.1 k/uL (0-0.7); Eosinophils % (A) 1 %; Glucose 95 mg/dL (74-99); HCT 46.3 % (39.0-53.0); HGB 14.6 gm/dL (13.0-17.5); Lymphocytes # (A) 1.4 k/uL (1.0-4.8); Lymphocytes % (A) 10 %; MCH 30.4 pg (25.0-35.0); MCHC 31.6 g/dL (31.0-37.0); MCV 96.3 fL (80.0-100.0); Mean Platelet Volume 7.8; Monocytes % (A) 7 %; Neutrophils % (A) 80 %; Non-African American GFR(CKD) >90 (>60 ml/min/1.73 sqM); Platelet Count 205 k/uL (150-450); RDW 15.6 % (11.5-15.5); Sodium 135 mmol/L (137-145); WBC 13.7 k/uL (3.8-10.6)
[2024-04-09 07:04] LABS: Potassium 4.2 mmol/L (3.5-5.1)
--- NOTE | 2024-04-09 08:06 | XR ---
EXAMINATION TYPE: XR chest 1V portable DATE OF EXAM: 04/09/2024 COMPARISON: 04/07/2024 INDICATION: Right lower lobe infiltrate TECHNIQUE: Single frontal view of the chest is obtained. FINDINGS: The heart size is normal. The pulmonary vasculature is prominent. There is mild diffuse increased lung opacity. Correlate for some developing pulmonary edema. Focal ri ght lower lobe and right not clearly delineated. Continued follow-up recommended. IMPRESSION: 1. Mild diffuse increase in lung markings. Correlate for pulmonary edema.
[2024-04-09 10:20] LABS: Allen Test Performed? Yes
[2024-04-09 10:21] LABS: ABG Base Excess 3.6 mmol/L; ABG HCO3 27 mmol/L (21-25); ABG PCO2 33 mmHg (35-45); ABG PH 7.51 (7.35-7.45); ABG PO2 65 mmHg (83-108); ABG TCO2 27 mmol/L (19-24)
--- NOTE | 2024-04-09 13:18 | P.PN ---
Subjective Progress Note Date: 04/09/24 Principal diagnosis: Altered mental status This is a 58-year-old white male brought into the ER yesterday at 10:03 PM, patient is known to have history of multiple medical problems including seizure disorder, atrial fibrillation, hypertension, history of lung cancer and brain m etastasis. Patient also had previous history of brain surgery. Patient was brought into the ER mostly with altered level of consciousness, suspected seizure. Apparently he was seen by neurology on consultation, his seizure medications were addressed, patient was extremely restless and agitated down in the ER, and the decision was made to transfer the patient to the ICU. In the ICU, patient was extremely restless and agitated, took almost 4 people to hold him down, and he required restraints. I saw the patient in the ICU and I recommended Ativan to be given and also recommended patient to be started on Precedex. Apparently according to the sister, patient had previous history of seizures activity with prolonged postictal phase. Cannot get any information from the patient himself. Patient seems to be restless agitated, and does not seem to be coherent Patient was evaluated on , patient is on 4 L nasal cannula, remains on Precedex at 0.8 mcg/kg/h, patient is sedated, opens eyes only does not follow any instructions. Chest x-ray showed mild diffuse increase in lung markings, possible pulmonary edema or I would be concerned mostly about aspiration pneumonia considering his altered mental status for and is empirically on antibiotics, he is also receiving diuretics considering his persistent abnormal mental status, patient may require MRI, however the decision will be left to neurology on the case to make that decision ABG today showed a pO2 of 65 pCO2 33 pH of 7.51on 32% FiO2. WBC count is 13.7 hemoglobin 14.6 basic metabolic profile is normal and renal profile is normal procalcitonin level is elevated at 0.27, patient is empirically on Unasyn for presumptive aspiration pneumonia Objective - Vital Signs Vital signs: Vital Signs Temp 99.0 F 04/09/24 12:00 Pulse 101 H 04/09/24 13:00 Resp 26 H 04/09/24 13:00 BP 163/90 04/09/24 12:00 Pulse Ox 98 04/09/24 13:00 FiO2 Intake & Output 07/08/24 07/09/24 07/09/24 18:59 06:59 18:59 Intake Total 5823.584 8862.484 718.384 Output Total 1800 1540 960 Balance -513.234 -408.516 -241.616 Weight 68.039 kg 60.1 kg 60.1 kg Intake: IV 1275 925 625 0.9 675 525 525 Ampicillin-Sulbactam 3 gm 200 100 100 In Sodium Chloride 0.9% 100 ml @ 200 mls/hr IVPB Q8H [facility] Rx#:[id number] Potassium Chloride 10 meq 400 300 In Water For Injection 1 100ml.bag @ 100 mls/hr IVPB Q1HR [facility] Rx#: [id number] Intake, IV Titration 11.766 206.484 93.384 Amount Dexmedetomidine/0.9% NaCl 11.766 106.484 93.384 (Pmx) 400 mcg In Empty Bag 1 bag @ 0.2 MCG/KG/HR 3.402 mls/hr IV .Q24H [facility] Rx#:[id number] Potassium Chloride 10 meq 100 In Water For Injection 1 100ml.bag @ 100 mls/hr IVPB Q1HR [facility] Rx#: [id number] Output: Urine 1800 1540 960 Other: Voiding Method Indwelling Catheter Indwelling Catheter Indwelling Catheter - Exam General: Reveals a 58-year-old white male, calm, opens eyes, but does not follow any instructions Skin: Skin is warm and dry and no rashes or lesions are noted. Eye: Pupils are equal, round and reactive to light, extra-ocular movements are intact; there is normal conjunctiva bilaterally. Ears, nose, mouth and throat: There are moist mucous membranes and no oral lesions. Neck: The neck is supple, there is no tenderness or JVD. Cardiovascular: There is a regular rate and rhythm. No murmur, rub or gallop is appreciated. Respiratory: Rhonchi noted bilaterally. Gastrointestinal: Soft, non-distended, non-tender abdomen without masses or organomegaly noted. There is no rebound or guarding present. Bowel sounds are unremarkable. Musculoskeletal: No evidence of deformities, seems to be having no limitation range of motion Neurological: Opens eyes does not follow any instructions remains a bit obtunded Psychiatric: Could not fully assess - Labs CBC & Chem 7: 04/09/24 06:02 04/09/24 06:02 Labs: Abnormal Lab Results - Last 24 Hours (Table) 04/08/24 04/08/24 04/08/24 Range/Units 09:49 14:43 18:46 WBC (3.8-10.6) k/uL RDW (11.5-15.5) % Neutrophils # (1.3-7.7) k/uL ABG pH (7.35-7.45) ABG pCO2 (35-45) mmHg ABG pO2 (83-108) mmHg ABG HCO3 (21-25) mmol/L ABG Total CO2 (19-24) mmol/L Sodium (137-145) mmol/L BUN 21 H (9-20) mg/dL Creatinine 0.43 L (0.66-1.25) mg/dL Glucose 110 H (74-99) mg/dL Procalcitonin 0.32 H 0.27 H (0.02-0.09) ng/mL 04/09/24 04/09/24 04/09/24 Range/Units 06:02 06:02 10:15 WBC 13.7 H (3.8-10.6) k/uL RDW 15.6 H (11.5-15.5) % Neutrophils # 11.0 H (1.3-7.7) k/uL ABG pH 7.51 H (7.35-7.45) ABG pCO2 33 L (35-45) mmHg ABG pO2 65 L (83-108) mmHg ABG HCO3 27 H (21-25) mmol/L ABG Total CO2 27 H (19-24) mmol/L Sodium 135 L (137-145) mmol/L BUN (9-20) mg/dL Creatinine 0.39 L (0.66-1.25) mg/dL Glucose (74-99) mg/dL Procalcitonin (0.02-0.09) ng/mL Microbiology - Last 24 Hours (Table) 04/08/24 01:45 Blood Culture - Preliminary Blood 04/08/24 01:27 Blood Culture - Preliminary Blood Assessment and Plan Assessment: Impression: Altered mental status, being assessed by neurology on the case. Breakthrough seizure with prolonged postictal state History of metastatic lung cancer with cerebral metastasis not truly seen on CT of the brain Aspiration pneumonia is strongly suspected Tobacco dependence syndrome and history of marijuana use Chronic atrial fibrillation History of hypertension Recommendation: Continue Precedex and cut down the dose Continue antibiotics/Unasyn Gentle diuresis/Lasix 20 mg IV push x 1 Continue present supportive care measures Continue seizure meds as per neurology on the case Continue seizure precautions GI and DVT prophylaxis Will continue to follow. Time with Patient: Less than 30
[2024-04-09] MEDS: FUROSEMIDE 10 MG/ML 2 ML VIAL IV ONE (14:25)
[2024-04-09] MEDS: MORPHINE SULFATE 4 MG/ML SYRINGE IVP PRN (16:10)
--- NOTE | 2024-04-09 18:11 | P.PN ---
Subjective Progress Note Date: 04/09/24 H&P Date: 04/08/24 Chief Complaint: Seizure This is a 58-year-old gentleman with past medical history significant for seizure disorder, atrial fibrillation, hypertension metastatic lung cancer with brain mets, brain surgery, completed radiation of brain and thorax as well as chemo therapy, new right temporal lobe lesion per MRI 11/25 and multiple other medical issues transported by EMS to the ER with altered mental status, suspected seizure with prolonged postictal phase.Discovered by sister, unresponsive, outside, seizure suspected. Last seen well approximately 2 1/2-3 hours prior.Sister reported to ER that patient has a history of seizures with pr olonged postictal phase. Patient did have a seizure in the ER, received Ativan and Keppra. IV fluid hydration, potassium supplementation with Unasyn initiated in the ER. While in the ER patient was extremely restless, agitated, combative, swinging at staff-required multiple staff to restrain. Sitter maintained at bedside. Recently medicated and currently sedated. Radiology studies reviewed/chest x-ray question mild right lower lobe infiltrate-nonspecific. 04/09/2024 aggressive, agitated, swinging requiring 5 people to hold him down, Precedex initiated yesterday in the ICU, restraints required. Continues to require Ativan and Haldol throughout the night. Staff reports upon awakening, patient swearing at staff. Maintaining O2 sats in the 90s on 4 L nasal cannula. Chest x-ray reporting mild diffuse increase in lung markings correlate for pulmonary edema. Maintained on empiric Unasyn for suspected aspiration pneumonia. opens eyes, not following commands. fine tachycardia, Tmax 99.2, WBC 13.7, procalcitonin decreasing to 0.27. Renal function stable. No seizure activity reported. Objective - Vital Signs Vital signs: Vital Signs Temp 99.0 F 04/09/24 12:00 Pulse 112 H 04/09/24 17:00 Resp 19 04/09/24 17:00 BP 138/105 04/09/24 17:00 Pulse Ox 96 04/09/24 17:00 FiO2 Intake & Output 04/08/24 04/09/24 04/09/24 18:59 06:59 18:59 Intake Total 2794.927 7007.484 1162.043 Output Total 1800 1540 2620 Balance -513.234 -408.516 -1457.957 Weight 68.039 kg 60.1 kg 60.1 kg Intake: IV 2179 563 5172 0.9 675 525 825 Ampicillin-Sulbactam 3 gm 200 100 200 In Sodium Chloride 0.9% 100 ml @ 200 mls/hr IVPB Q8H [facility] Rx#:[id number] Potassium Chloride 10 meq 400 300 In Water For Injection 1 100ml.bag @ 100 mls/hr IVPB Q1HR [facility] Rx#: [id number] Intake, IV Titration 11.766 206.484 137.043 Amount Dexmedetomidine/0.9% NaCl 11.766 106.484 137.043 (Pmx) 400 mcg In Empty Bag 1 bag @ 0.2 MCG/KG/HR 3.402 mls/hr IV .Q24H [facility] Rx#:[id number] Potassium Chloride 10 meq 100 In Water For Injection 1 100ml.bag @ 100 mls/hr IVPB Q1HR [facility] Rx#: [id number] Output: Urine 1800 1540 2620 Other: Voiding Method Indwelling Catheter Indwelling Catheter Indwelling Catheter - Exam Gen: This is a 58-year-old male, currently calm, opens eyes spontaneously HEENT: Head is atraumatic, normocephalic. Pupils equal, round sclerae is anicteric. NECK: Supple. No JVD. LUNGS: Unlabored, equal air entry, rhonchi scattered throughout HEART: Regular rate and rhythm. No murmur. ABDOMEN: Soft. Nondistended, nontender, bowel sounds are present. No masses noted. No guarding, no rigidity, no tenderness. EXTREMITIES: No pedal edema. No calf tenderness. NEUROLOGICAL: limited exam, opens eyes, not following, - Labs CBC & Chem 7: 04/09/24 06:02 04/09/24 06:02 Labs: Abnormal Lab Results - Last 24 Hours (Table) 04/08/24 04/09/24 04/09/24 Range/Units 18:46 06:02 06:02 WBC 13.7 H (3.8-10.6) k/uL RDW 15.6 H (11.5-15.5) % Neutrophils # 11.0 H (1.3-7.7) k/uL ABG pH (7.35-7.45) ABG pCO2 (35-45) mmHg ABG pO2 (83-108) mmHg ABG HCO3 (21-25) mmol/L ABG Total CO2 (19-24) mmol/L Sodium 135 L (137-145) mmol/L Creatinine 0.39 L (0.66-1.25) mg/dL Procalcitonin 0.27 H (0.02-0.09) ng/mL 04/09/24 Range/Units 10:15 WBC (3.8-10.6) k/uL RDW (11.5-15.5) % Neutrophils # (1.3-7.7) k/uL ABG pH 7.51 H (7.35-7.45) ABG pCO2 33 L (35-45) mmHg ABG pO2 65 L (83-108) mmHg ABG HCO3 27 H (21-25) mmol/L ABG Total CO2 27 H (19-24) mmol/L Sodium (137-145) mmol/L Creatinine (0.66-1.25) mg/dL Procalcitonin (0.02-0.09) ng/mL Microbiology - Last 24 Hours (Table) 04/08/24 01:45 Blood Culture - Preliminary Blood 04/08/24 01:27 Blood Culture - Preliminary Blood Assessment and Plan Assessment: Seizure disorder with breakthrough seizure, prolonged postictal state, possibly secondary to brain metastasis Altered mental status, possible acute metabolic, toxic encephalopathy, neurology following Possible aspiration pneumonia, elevated procalcitonin Hypertension Hypokalemia Metastatic lung cancer with cerebral metastasis, status post radiation and chemotherapy,new temporal lesions noted in November 2023 Chronic paroxysmal atrial fibrillation, not on anticoagulation Severe left and moderate right hip osteoarthritis Severe degenerative disc disease Ongoing nicotine dependence Marijuana use Plan: Continue on current medication regimen ,monitoring and symptomatic treatment. ICU management as per division service manager-continues on Precedex, empiric antibiotics. empiric antibiotics. Maintain seizure precautions. seizure meds as per neurology. prognosis guarded given multiple complex medical issues. Loreto hernandez supportive care. The impression and plan of care has been dictated as directed. : I performed a history and examination of this patient, discussed the same with the dictator. I agree with the dictator's note ,documented as a scribe. Any additional findings or plans will be noted.
[2024-04-09] MEDS: Lacosamide IV (ages 17+ yrs) 200 MG/20 ML ML IVP SCH (18:54)
--- NOTE | 2024-04-09 23:03 | EEG ---
ELECTROENCEPHALOGRAM REPORT PREAMBLE: This is a 58-year-old male with history of seizure disorder, came with breakthrough seizure with prolonged postictal state. CURRENT MEDICATIONS: 1. Ampicillin. 2. Haldol. 3. Keppra. 4. Protonix. 5. Buprenorphine. EEG FINDINGS: This is a 21-channel digital EEG recorded with video component, utilizing 10/20 international system with referential and bipolar montages. The background consists of disorganized mixed frequencies of theta and some delta slowing in bihemispheric region. Intermittent bursts of left occipital sharp and slow waves were seen, that sometimes extended to bioccipital region. In the middle part of the recording, electrographic seizure was recorded, that started with repetitive sharp waves in the left occipital region, that soon somewhat generalized to bihemispheric region, followed by arrhythmic 3 hertz sharp and slow waves. This ictal activity lasted for about 80 seconds. Postictally, there was generalized slowing consistent with postictal state. Clinically this event was associated with repetitive mouth and head movements. Different stages of sleep were not seen. IMPRESSION: Abnormal EEG due to: 1. Recording of electrographic seizure, that started with left occipital sharp and slow waves, that extended to bihemispheric region with rhythmic high amplitude generalized arrhythmic sharp and slow waves at 3 hertz, lasted for about 80 seconds. Clinically, this was associated with repetitive mouth and head movement. 2. Intermittent sharp waves activity seen left occipital region. 3. Background slowing is suggestive of generalized cerebral dysfunction as can be seen with toxic metabolic encephalopathy or related to diffuse structural brain abnormality. Clinical correlation is recommended. 4. No electrographic evidence of status epilepticus. 5. Recommend prolonged study for further evaluation. MMODL / IJN: [id number] / SELENA
[2024-04-10 06:38] LABS: Basophils % (A) 0 %; Eosinophils # (A) 0.1 k/uL (0-0.7); Eosinophils % (A) 1 %; HCT 47.4 % (39.0-53.0); HGB 14.8 gm/dL (13.0-17.5); Lymphocytes # (A) 1.5 k/uL (1.0-4.8); Lymphocytes % (A) 13 %; MCHC 31.2 g/dL (31.0-37.0); Mean Platelet Volume 7.6; Monocytes # (A) 0.9 k/uL (0-1.0); Monocytes % (A) 8 %; Neutrophils # (A) 9.1 k/uL (1.3-7.7); Neutrophils % (A) 76 %; Platelet Count 228 k/uL (150-450); RBC 4.94 m/uL (4.30-5.90); RDW 15.4 % (11.5-15.5)
[2024-04-10 07:07] LABS: African American GFR (CKD) >90 (>60 ml/min/1.73 sqM); Anion Gap 10 mmol/L; Blood Urea Nitrogen 20 mg/dL (9-20); Carbon Dioxide 23 mmol/L (22-30); Chloride 106 mmol/L (98-107); Glucose 79 mg/dL (74-99); Non-African American GFR(CKD) >90 (>60 ml/min/1.73 sqM); Sodium 139 mmol/L (137-145)
[2024-04-10 07:11] LABS: Potassium 3.2 mmol/L (3.5-5.1)
[2024-04-10] MEDS: POTASSIUM CHLORIDE ER 20 MEQ TAB.ER PO SCH ×2 (07:33→15:09)
--- NOTE | 2024-04-10 10:06 | P.PN ---
Subjective Progress Note Date: 04/09/24 Patient was seen for a follow-up. Patient is laying in the bed. Patient is still obtunded. As per sitter, patient becomes very "grumpy", asked same question over and over again like "where he is at, how did I get here". He cannot process his thoughts. No obvious seizures noted. Patient complains of "tons of pain". Otherwise obtunded at this time. Objective - Vital Signs Vital signs: Vital Signs Temp 99.0 F 04/09/24 12:00 Pulse 90 04/09/24 12:00 Resp 26 H 04/09/24 12:00 BP 163/90 04/09/24 12:00 Pulse Ox 95 04/09/24 12:00 FiO2 Intake & Output 04/08/24 04/09/24 04/09/24 18:59 06:59 18:59 Intake Total 9756.437 7203.484 643.384 Output Total 1800 1540 810 Balance -513.234 -408.516 -166.616 Weight 68.039 kg 60.1 kg 60.1 kg Intake: IV 1275 925 550 0.9 675 525 450 Ampicillin-Sulbactam 3 gm 200 100 100 In Sodium Chloride 0.9% 100 ml @ 200 mls/hr IVPB Q8H [facility] Rx#:[id number] Potassium Chloride 10 meq 400 300 In Water For Injection 1 100ml.bag @ 100 mls/hr IVPB Q1HR [facility] Rx#: [id number] Intake, IV Titration 11.766 206.484 93.384 Amount Dexmedetomidine/0.9% NaCl 11.766 106.484 93.384 (Pmx) 400 mcg In Empty Bag 1 bag @ 0.2 MCG/KG/HR 3.402 mls/hr IV .Q24H [facility] Rx#:[id number] Potassium Chloride 10 meq 100 In Water For Injection 1 100ml.bag @ 100 mls/hr IVPB Q1HR [facility] Rx#: [id number] Output: Urine 1800 1540 810 Other: Voiding Method Indwelling Catheter Indwelling Catheter Indwelling Catheter - Exam As above. Patient not answering any questions. He is very groggy, lethargic. No obvious seizure-like activity noted. Gaze is midline. Tone is equal. - Labs CBC & Chem 7: 04/10/24 05:42 07/10/24 05:42 Labs: Abnormal Lab Results - Last 24 Hours (Table) 04/08/24 04/08/24 04/08/24 Range/Units 09:49 14:43 18:46 WBC (3.8-10.6) k/uL RDW (11.5-15.5) % Neutrophils # (1.3-7.7) k/uL ABG pH (7.35-7.45) ABG pCO2 (35-45) mmHg ABG pO2 (83-108) mmHg ABG HCO3 (21-25) mmol/L ABG Total CO2 (19-24) mmol/L Sodium (137-145) mmol/L BUN 21 H (9-20) mg/dL Creatinine 0.43 L (0.66-1.25) mg/dL Glucose 110 H (74-99) mg/dL Procalcitonin 0.32 H 0.27 H (0.02-0.09) ng/mL 04/09/24 04/09/24 04/09/24 Range/Units 06:02 06:02 10:15 WBC 13.7 H (3.8-10.6) k/uL RDW 15.6 H (11.5-15.5) % Neutrophils # 11.0 H (1.3-7.7) k/uL ABG pH 7.51 H (7.35-7.45) ABG pCO2 33 L (35-45) mmHg ABG pO2 65 L (83-108) mmHg ABG HCO3 27 H (21-25) mmol/L ABG Total CO2 27 H (19-24) mmol/L Sodium 135 L (137-145) mmol/L BUN (9-20) mg/dL Creatinine 0.39 L (0.66-1.25) mg/dL Glucose (74-99) mg/dL Procalcitonin (0.02-0.09) ng/mL Microbiology - Last 24 Hours (Table) 04/08/24 01:45 Blood Culture - Preliminary Blood 04/08/24 01:27 Blood Culture - Preliminary Blood Assessment and Plan Assessment: * Breakthrough seizure, with prolonged postictal state. He had similar presentation of prolonged postictal state in the past as well. * Abnormal EEG, with recording of focal onset complex partial electrographic seizure. * Metastatic lung cancer, with cerebral metastasis. * Possible aspiration pneumonia due to seizure * Hypokalemia, improved * Hypernatremia, mild * Possible medication noncompliance * Tobacco use * Marijuana use * Atrial fibrillation, currently not on anticoagulation. Plan: * Patient had a breakthrough seizure, unclear cause, ?perhaps related to medication noncompliance. * Patient was taking Keppra 1000 mg twice daily. Patient received 2000 mg loading dose Keppra in the ER last night after his witnessed seizure. * Patient has been placed on his home dose of Keppra 1000 mg IV twice daily. * Patient is currently in postictal state. No obvious seizure-like activity noted. * EEG was performed, which was abnormal due to recording of an electrographic seizure, that started with left occipital sharp and slow waves, that extended to bihemispheric region with rhythmic high amplitude generalized sharp and slow waves at 3 Hz, lasted for about 80 seconds. Clinically this was associated with repetitive mouth and head movement. It also showed background slowing and disorganization suggestive of generalized cerebral dysfunction as can be seen with toxic metabolic encephalopathy related to diffuse structural brain abnormality. Clinical correlation is recommended. No electrographic evidence of status epilepticus. Recommend prolonged study for further evaluation. * Patient to be started on Vimpat 200 mg IV twice daily. * Repeat, prolonged EEG for 2.5 hours in the morning. * Patient on aspirin for atrial fibrillation. We will defer to IM need for any anticoagulation. * Patient on Unasyn for aspiration pneumonia. * Continue seizure precautions. * DVT prophylaxis: Start heparin 5000 units subcu every 12 hours.
[2024-04-10] MEDS: HEPARIN SODIUM,PORCINE 5,000 UNIT/ML 1 ML VIAL SQ SCH (12:08)
[2024-04-10 13:52] LABS: Magnesium 1.9 mg/dL (1.6-2.3); Potassium 3.4 mmol/L (3.5-5.1)
--- NOTE | 2024-04-10 14:31 | P.PN ---
Subjective Progress Note Date: 04/10/24 Principal diagnosis: Altered mental status This is a 58-year-old white male brought into the ER yesterday at 10:03 PM, patient is known to have history of multiple medical problems including seizure disorder, atrial fibrillation, hypertension, history of lung cancer and brain m etastasis. Patient also had previous history of brain surgery. Patient was brought into the ER mostly with altered level of consciousness, suspected seizure. Apparently he was seen by neurology on consultation, his seizure medications were addressed, patient was extremely restless and agitated down in the ER, and the decision was made to transfer the patient to the ICU. In the ICU, patient was extremely restless and agitated, took almost 4 people to hold him down, and he required restraints. I saw the patient in the ICU and I recommended Ativan to be given and also recommended patient to be started on Precedex. Apparently according to the sister, patient had previous history of seizures activity with prolonged postictal phase. Cannot get any information from the patient himself. Patient seems to be restless agitated, and does not seem to be coherent Patient was evaluated on 04/09/24, patient is on 4 L nasal cannula, remains on Precedex at 0.8 mcg/kg/h, patient is sedated, opens eyes only does not follow any instructions. Chest x-ray showed mild diffuse increase in lung markings, possible pulmonary edema or I would be concerned mostly about aspiration pneumonia considering his altered mental status for and is empirically on antibiotics, he is also receiving diuretics considering his persistent abnormal mental status, patient may require MRI, however the decision will be left to neurology on the case to make that decision ABG today showed a pO2 of 65 pCO2 33 pH of 7.51on 32% FiO2. WBC count is 13.7 hemoglobin 14.6 basic metabolic profile is normal and renal profile is normal procalcitonin level is elevated at 0.27, patient is empirically on Unasyn for presumptive aspiration pneumonia Patient was evaluated today on 04/10/2024, patient remains on vent, he is on IV fluid at 75 cc/h, patient apparently is having intermittent episodes of seizures based on his EEG yesterday, he had a seizure apparently while he was having EEG. Patient is now on Keppra and Vimpat, and neurology is recommending prolonged EEG, 3-1/2-hour EEG which will be done today. In the meantime his seizure medications are being adjusted, I have a feeling that this patient may have to be transferred to a tertiary care center where they have 24 EEG monitoring. In the meantime patient is receiving Unasyn for presumptive or potential aspiration pneumonia. WBC count is 12 hemoglobin 14.8 basic metabolic profile is normal renal profile is normal, procalcitonin level is 0.27 Objective - Vital Signs Vital signs: Vital Signs Temp 98.8 F 04/10/24 08:00 Pulse 121 H 04/10/24 14:00 Resp 20 04/10/24 14:00 BP 153/116 04/10/24 14:00 Pulse Ox 95 04/10/24 11:00 FiO2 Intake & Output 04/09/24 04/10/24 04/10/24 18:59 06:59 18:59 Intake Total 3923.557 9791.723 700 Output Total 2695 505 415 Balance -1439.926 559.723 285 Weight 60.1 kg 58.9 kg Intake: IV 1100 1000 700 0.9 900 900 600 Ampicillin-Sulbactam 3 gm 200 100 100 In Sodium Chloride 0.9% 100 ml @ 200 mls/hr IVPB Q8H [facility] Rx#:[id number] Intake, IV Titration 155.074 64.723 Amount Dexmedetomidine/0.9% NaCl 155.074 64.723 (Pmx) 400 mcg In Empty Bag 1 bag @ 0.2 MCG/KG/HR 3.402 mls/hr IV .Q24H [facility] Rx#:[id number] Output: Urine 2695 505 415 Other: Voiding Method Indwelling Catheter Indwelling Catheter Indwelling Catheter # Bowel Movements 1 - Exam General: Reveals a 58-year-old white male, calm, opens eyes, but does not follow any instructions Skin: Skin is warm and dry and no rashes or lesions are noted. Eye: Pupils are equal, round and reactive to light, extra-ocular movements are intact; there is normal conjunctiva bilaterally. Ears, nose, mouth and throat: There are moist mucous membranes and no oral lesions. Neck: The neck is supple, there is no tenderness or JVD. Cardiovascular: There is a regular rate and rhythm. No murmur, rub or gallop is appreciated. Respiratory: Rhonchi noted bilaterally. Gastrointestinal: Soft, non-distended, non-tender abdomen without masses or organomegaly noted. There is no rebound or guarding present. Bowel sounds are unremarkable. Musculoskeletal: No evidence of deformities, seems to be having no limitation ra nge of motion Neurological: Obtunded and overall neurological status is unchanged Psychiatric: Could not fully assess - Labs CBC & Chem 7: 04/10/24 05:42 04/10/24 13:19 Labs: Abnormal Lab Results - Last 24 Hours (Table) 04/10/24 04/10/24 04/10/24 Range/Units 05:42 05:42 13:19 WBC 12.0 H (3.8-10.6) k/uL Neutrophils # 9.1 H (1.3-7.7) k/uL Potassium 3.2 L 3.4 L (3.5-5.1) mmol/L Creatinine 0.42 L (0.66-1.25) mg/dL Microbiology - Last 24 Hours (Table) 04/08/24 01:45 Blood Culture - Preliminary Blood 04/08/24 01:27 Blood Culture - Preliminary Blood Assessment and Plan Assessment: Impression: Altered mental status, suspect recurrent seizures Breakthrough seizure with prolonged postictal state History of metastatic lung cancer with cerebral metastasis not truly seen on CT of the brain Aspiration pneumonia is strongly suspected Tobacco dependence syndrome and history of marijuana use Chronic atrial fibrillation History of hypertension Recommendation: Continue seizure meds and seizure precautions Continue antibiotics/Unasyn Continue to diurese gently Continue present supportive care measures GI and DVT prophylaxis I feel that neurology may recommend tertiary care transfer for 24-hour EEG monitoring. And I think that would be appropriate. Overall prognostic picture seems to be very poor considering his multiple comorbidities. Will continue to follow. Time with Patient: Less than 30
[2024-04-10] MEDS: lisinopriL 5 MG TAB PO SCH (15:09)
[2024-04-10] MEDS: DILTIAZEM CD 240 MG CAP.ER.24H PO SCH (15:09)
[2024-04-10] MEDS: LACOSAMIDE 50 MG TABLET PO SCH (21:24)
[2024-04-10] MEDS: METOPROLOL SUCCINATE (ER) 100 MG TAB.ER.24H PO SCH (21:24)
[2024-04-10] MEDS: levETIRAcetam 500 MG TAB PO SCH (21:24)
[2024-04-10] MEDS: NICOTINE 14MG/24HR PATCH TRANSDERM SCH (22:43)
[2024-04-11 06:39] LABS: African American GFR (CKD) >90 (>60 ml/min/1.73 sqM); Anion Gap 2 mmol/L; Blood Urea Nitrogen 15 mg/dL (9-20); Calcium 8.5 mg/dL (8.4-10.2); Carbon Dioxide 28 mmol/L (22-30); Chloride 110 mmol/L (98-107); Glucose 105 mg/dL (74-99); Non-African American GFR(CKD) >90 (>60 ml/min/1.73 sqM); Potassium 3.6 mmol/L (3.5-5.1); Sodium 140 mmol/L (137-145)
[2024-04-11] MEDS: POTASSIUM CHLORIDE ER 20 MEQ TAB.ER PO SCH (06:56)
[2024-04-11 07:22] LABS: HCT 38.7 % (39.0-53.0); HGB 12.7 gm/dL (13.0-17.5); MCH 31.2 pg (25.0-35.0); MCHC 32.7 g/dL (31.0-37.0); MCV 95.3 fL (80.0-100.0); Mean Platelet Volume 8.3; Platelet Count 198 k/uL (150-450); RBC 4.06 m/uL (4.30-5.90); RDW 15.5 % (11.5-15.5); WBC 10.3 k/uL (3.8-10.6)
[2024-04-11] MEDS: ACETAMINOPHEN TAB 325 MG TAB PO PRN (07:57)
[2024-04-11] MEDS: ASPIRIN 81 MG PO SCH (07:58)
--- NOTE | 2024-04-11 09:38 | P.PN ---
Subjective Progress Note Date: 04/10/24 04/10/2024: Patient states that he feels "pretty good". Patient is fully alert and awake and very well-oriented as per examination below. No seizures have been witnessed. Patient tells me that he does not miss the dose at all. He is very much compliant with the medications. He admits to still smoking 1 to 1-1/2 packs/day. 04/09/2024: Patient was seen for a follow-up. Patient is laying in the bed. Patient is still obtunded. As per sitter, patient becomes very "grumpy", asked same question over and over again like "where he is at, how did I get here". He cannot process his thoughts. No obvious seizures noted. Patient complains of "tons of pain". Otherwise obtunded at this time. Objective - Vital Signs Vital signs: Vital Signs Temp 98.8 F 04/10/24 08:00 Pulse 120 H 04/10/24 11:00 Resp 10 L 04/10/24 11:00 BP 161/89 04/10/24 10:00 Pulse Ox 95 04/10/24 11:00 FiO2 Intake & Output 04/09/24 04/10/24 04/10/24 18:59 06:59 18:59 Intake Total 8356.974 0359.723 325 Output Total 2695 505 155 Balance -1439.926 559.723 170 Weight 60.1 kg 58.9 kg Intake: IV 1100 1000 325 0.9 900 900 225 Ampicillin-Sulbactam 3 gm 200 100 100 In Sodium Chloride 0.9% 100 ml @ 200 mls/hr IVPB Q8H [facility] Rx#:[id number] Intake, IV Titration 155.074 64.723 Amount Dexmedetomidine/0.9% NaCl 155.074 64.723 (Pmx) 400 mcg In Empty Bag 1 bag @ 0.2 MCG/KG/HR 3.402 mls/hr IV .Q24H [facility] Rx#:[id number] Output: Urine 2695 505 155 Other: Voiding Method Indwelling Catheter Indwelling Catheter Indwelling Catheter - Exam Patient is alert and awake, sitting in the bed, fully cooperative with examination and history. Patient knows it is April and said the year is 1993 but then corrected to 2023. He knows he is in [facility] in [place]. Speech and language functions are normal. Comprehension is intact. On cranial examination pupils are equal round and reactive to light, visual ayon revealed homonymous face is symmetric and tongue protrudes midline. Right lower quadrant visual field defect. On muscle strength testing, the strength is normal in arms and legs. Sensory to touch is equal. - Labs CBC & Chem 7: 04/11/24 05:59 04/11/24 05:59 Labs: Abnormal Lab Results - Last 24 Hours (Table) 04/10/24 04/10/24 Range/Units 05:42 05:42 WBC 12.0 H (3.8-10.6) k/uL Neutrophils # 9.1 H (1.3-7.7) k/uL Potassium 3.2 L (3.5-5.1) mmol/L Creatinine 0.42 L (0.66-1.25) mg/dL Microbiology - Last 24 Hours (Table) 04/08/24 01:45 Blood Culture - Preliminary Blood 04/08/24 01:27 Blood Culture - Preliminary Blood Assessment and Plan Assessment: * Breakthrough seizure, with prolonged postictal state. He had similar presentation of prolonged postictal state in the past as well. * Abnormal EEG, with recording of a focal onset complex partial electrographic seizure. * Metastatic lung cancer, with cerebral metastasis. * Possible aspiration pneumonia due to seizure * Hypokalemia, improved * Hypernatremia, mild * Patient is fully compliant with medications. * Tobacco use * Marijuana use * Atrial fibrillation, currently not on anticoagulation. Plan: * Patient had a breakthrough seizure, unclear cause. Patient states he is fully compliant with the medications. He has been on Keppra 1000 mg twice daily. * Initial EEG 04/09/2024 was abnormal due to recording of an electrographic seizure, that started with left occipital sharp and slow waves, that extended to bihemispheric region with rhythmic high amplitude generalized sharp and slow waves at 3 Hz, lasted for about 80 seconds. Clinically this was associated with repetitive mouth and head movement. It also showed background slowing and disorganization suggestive of generalized cerebral dysfunction as can be seen with toxic metabolic encephalopathy related to diffuse structural brain abnormality. Clinical correlation is recommended. No electrographic evidence of status epilepticus. Recommend prolonged study for further evaluation. * Patient has been started now on Vimpat, and was given loading dose 200 mg x 2. His repeat, prolonged EEG for 2.5 hours showed no electrographic seizure in the preliminary report. Final report pending. We will decrease Vimpat to 100 mg twice daily. * Patient on aspirin for atrial fibrillation. We will defer to IM need for any anticoagulation. * Patient on Unasyn for aspiration pneumonia. * Continue seizure precautions. * DVT prophylaxis: Start heparin 5000 units subcu every 12 hours. * Okay to transfer to [facility].
[2024-04-11 11:40] LABS: Glucose,Whole Blood 222 mg/dL (70-110)
--- NOTE | 2024-04-11 12:57 | P.PN ---
Subjective Progress Note Date: 04/11/24 Principal diagnosis: Altered mental status This is a 58-year-old white male brought into the ER yesterday at 10:03 PM, patient is known to have history of multiple medical problems including seizure disorder, atrial fibrillation, hypertension, history of lung cancer and brain m etastasis. Patient also had previous history of brain surgery. Patient was brought into the ER mostly with altered level of consciousness, suspected seizure. Apparently he was seen by neurology on consultation, his seizure medications were addressed, patient was extremely restless and agitated down in the ER, and the decision was made to transfer the patient to the ICU. In the ICU, patient was extremely restless and agitated, took almost 4 people to hold him down, and he required restraints. I saw the patient in the ICU and I recommended Ativan to be given and also recommended patient to be started on Precedex. Apparently according to the sister, patient had previous history of seizures activity with prolonged postictal phase. Cannot get any information from the patient himself. Patient seems to be restless agitated, and does not seem to be coherent Patient was evaluated on 04/09/24, patient is on 4 L nasal cannula, remains on Precedex at 0.8 mcg/kg/h, patient is sedated, opens eyes only does not follow any instructions. Chest x-ray showed mild diffuse increase in lung markings, possible pulmonary edema or I would be concerned mostly about aspiration pneumonia considering his altered mental status for and is empirically on antibiotics, he is also receiving diuretics considering his persistent abnormal mental status, patient may require MRI, however the decision will be left to neurology on the case to make that decision ABG today showed a pO2 of 65 pCO2 33 pH of 7.51on 32% FiO2. WBC count is 13.7 hemoglobin 14.6 basic metabolic profile is normal and renal profile is normal procalcitonin level is elevated at 0.27, patient is empirically on Unasyn for presumptive aspiration pneumonia Patient was evaluated today on 04/10/2024, patient remains on vent, he is on IV fluid at 75 cc/h, patient apparently is having intermittent episodes of seizures based on his EEG yesterday, he had a seizure apparently while he was having EEG. Patient is now on Keppra and Vimpat, and neurology is recommending prolonged EEG, 3-1/2-hour EEG which will be done today. In the meantime his seizure medications are being adjusted, I have a feeling that this patient may have to be transferred to a tertiary care center where they have 24 EEG monitoring. In the meantime patient is receiving Unasyn for presumptive or potential aspiration pneumonia. WBC count is 12 hemoglobin 14.8 basic metabolic profile is normal renal profile is normal, procalcitonin level is 0.27 Patient was evaluated today on 04/11/2024, remains in the ICU, apparently his prolonged EEG showed no evidence of seizure activity, patient is awake today, he has poor memory, could not tell me the year, could not tell me the name of the president, patient seems to be a bit forgetful, otherwise he is not in any distress, and I plan to transfer the patient out of the ICU to a medical surgical floor.WBC count is 10.3 hemoglobin 12.7 basic metabolic profile is normal renal profile is normal Objective - Vital Signs Vital signs: Vital Signs Temp 97.5 F L 04/11/24 08:00 Pulse 63 04/11/24 11:00 Resp 11 L 04/11/24 11:00 BP 132/93 04/11/24 11:00 Pulse Ox 98 04/11/24 08:00 FiO2 Intake & Output 04/10/24 04/11/24 04/11/24 18:59 06:59 18:59 Intake Total 1000 1960 805 Output Total 625 1375 370 Balance 375 585 435 Weight 62.9 kg Intake: IV 1000 1000 325 0.9 900 900 225 Ampicillin-Sulbactam 3 gm 100 100 100 In Sodium Chloride 0.9% 100 ml @ 200 mls/hr IVPB Q8H [facility] Rx#:[id number] Oral 960 480 Output: Urine 625 1375 370 Other: Voiding Method Indwelling Catheter Indwelling Catheter Urinal # Bowel Movements 1 1 - Exam General: Reveals a 58-year-old white male, calm, opens eyes, but does not follow any instructions Skin: Skin is warm and dry and no rashes or lesions are noted. Eye: Pupils are equal, round and reactive to light, extra-ocular movements are intact; there is normal conjunctiva bilaterally. Ears, nose, mouth and throat: There are moist mucous membranes and no oral lesions. Neck: The neck is supple, there is no tenderness or JVD. Cardiovascular: There is a regular rate and rhythm. No murmur, rub or gallop is appreciated. Respiratory: Clear bilaterally no rhonchi no wheezes Gastrointestinal: Soft, non-distended, non-tender abdomen without masses or organomegaly noted. There is no rebound or guarding present. Bowel sounds are unremarkable. Musculoskeletal: No evidence of deformities, seems to be having no limitation range of motion Neurological: Alert and oriented x 2, no focal neurologic deficit Psychiatric: Normal mood affect and normal mental status except for poor memory could not tell the year and could not tell the name of the President of the [facility] - Labs CBC & Chem 7: 04/11/24 05:59 04/11/24 05:59 Labs: Abnormal Lab Results - Last 24 Hours (Table) 04/10/24 04/11/24 04/11/24 Range/Units 13:19 05:59 05:59 RBC 4.06 L (4.30-5.90) m/uL Hgb 12.7 L (13.0-17.5) gm/dL Hct 38.7 L (39.0-53.0) % Potassium 3.4 L (3.5-5.1) mmol/L Chloride 110 H (98-107) mmol/L Creatinine 0.40 L (0.66-1.25) mg/dL Glucose 105 H (74-99) mg/dL POC Glucose (mg/dL) (70-110) mg/dL 04/11/24 Range/Units 11:39 RBC (4.30-5.90) m/uL Hgb (13.0-17.5) gm/dL Hct (39.0-53.0) % Potassium (3.5-5.1) mmol/L Chloride (98-107) mmol/L Creatinine (0.66-1.25) mg/dL Glucose (74-99) mg/dL POC Glucose (mg/dL) 222 H (70-110) mg/dL Microbiology - Last 24 Hours (Table) 04/08/24 01:45 Blood Culture - Preliminary Blood 04/08/24 01:27 Blood Culture - Preliminary Blood Assessment and Plan Assessment: Impression: Altered mental status, suspect recurrent seizures Breakthrough seizure with prolonged postictal state History of metastatic lung cancer with cerebral metastasis not truly seen on CT of the brain Aspiration pneumonia is strongly suspected Tobacco dependence syndrome and history of marijuana use Chronic atrial fibrillation History of hypertension Recommendation: Continue seizure meds and seizure precautions Continue antibiotics/Unasyn Continue to diurese gently Patient to have follow-up chest x-ray today and decide on diuretics and antibiotics. Continue present supportive care measures GI and DVT prophylaxis Transfer patient to medical surgical floor, and will continue to follow Time with Patient: Less than 30
[2024-04-11 12:58] VITALS: BMI 19.9
--- NOTE | 2024-04-11 13:20 | XR ---
EXAMINATION TYPE: XR chest 1V portable DATE OF EXAM: 04/11/2024 Comparison: 04/09/2024 Clinical History: 58-year-old male CHF/PNEUMONIA Findings: Heart mildly enlarged. Hyperinflation. Some patchy opacity at the medial right lower lung and mild in terstitial densities remain though with considerably improved aeration from 04/09/2024. Impression: Mild cardiomegaly and COPD with significantly improved aeration from prior exam. Residual mild patchy interstitial changes and patchy right basilar opacity remains.
--- NOTE | 2024-04-11 15:49 | CT ---
EXAMINATION TYPE: CT brain wo con DATE OF EXAM: 04/11/2024 COMPARISON: 04/07/2024, 11/07/2023 HISTORY: 58-year-old male Follow up, r/o bleed. TECHNIQUE: Examination was done in axial plane without intravenous contrast. Coronal and sagittal r econstructions performed. CT DLP: 1168.4 mGycm Automated exposure control for dose reduction was used. FINDINGS: Bilateral posterior craniotomy flaps. Underlying focal areas of encephalomalacia right occipital michelle etal junctions. Similar peripheral calcification though noted to be increased from 11/07/2023. Faint high density lateral left temporal lobe, axial image 26 seems to have been present previously a s well suggesting some parenchymal calcification. No new intracranial hyperdensity or extra-axial fluid collection is seen. No midline shift. Similar m ild ex vacuo enlargement of the atria of the lateral ventricles. No effacements of cerebral sulci or basal subarachnoid cisterns. Gordon-white matter differentiation is maintained. Moderate mucosal thickening anterior left ethmoid air cells. Prominent air-fluid level left maxillary sinus. Mastoid air cells well pneumatized. Orbits and globes are intact. IMPRESSION: 1. Redemonstrated bilateral posterior craniotomy flaps with underlying peripherally calcified areas o f encephalomalacia at the occipitoparietal junctions on both sides. Some faint hyperdensity along the lateral left temporal lobe is also unchanged suggesting some parenchymal calcification. 2. No acute intracranial abnormality seen. 3. New large air-fluid level left maxillary sinus. Correlate for acute sinusitis.
--- NOTE | 2024-04-11 16:18 | P.PN ---
Subjective Progress Note Date: 04/10/24 H&P Date: 04/08/24 Chief Complaint: Seizure This is a 58-year-old gentleman with past medical history significant for seizure disorder, atrial fibrillation, hypertension metastatic lung cancer with brain mets, brain surgery, completed radiation of brain and thorax as well as chemo therapy, new right temporal lobe lesion per MRI 11/25 and multiple other medical issues transported by EMS to the ER with altered mental status, suspected seizure with prolonged postictal phase.Discovered by sister, unresponsive, outside, seizure suspected. Last seen well approximately 2 1/2-3 hours prior.Sister reported to ER that patient has a history of seizures with pr olonged postictal phase. Patient did have a seizure in the ER, received Ativan and Keppra. IV fluid hydration, potassium supplementation with Unasyn initiated in the ER. While in the ER patient was extremely restless, agitated, combative, swinging at staff-required multiple staff to restrain. Sitter maintained at bedside. Recently medicated and currently sedated. Radiology studies reviewed/chest x-ray question mild right lower lobe infiltrate-nonspecific. 04/09/2024 aggressive, agitated, swinging requiring 5 people to hold him down, Precedex initiated yesterday in the ICU, restraints required. Continues to require Ativan and Haldol throughout the night. Staff reports upon awakening, patient swearing at staff. Maintaining O2 sats in the 90s on 4 L nasal cannula. Chest x-ray reporting mild diffuse increase in lung markings correlate for pulmonary edema. Maintained on empiric Unasyn for suspected aspiration pneumonia. opens eyes, not following commands. fine tachycardia, Tmax 99.2, WBC 13.7, procalcitonin decreasing to 0.27. Renal function stable. No seizure activity reported. 04/10/2024 Precedex on hold, restraints off, tachycardic. Scheduled for 3- hour/prolonged EEG today. EEG yesterday reported seizure activity. Maintained on Keppra and Vimpat currently. continues on IV fluid hydration and Unasyn for presumptive aspiration. O2 sat mid 90s on 2 L nasal cannula. afebrile, normal WBC. Renal function stable, potassium 3.6 Objective - Vital Signs Vital signs: Vital Signs Temp 98.7 F 04/10/24 16:00 Pulse 98 04/10/24 16:00 Resp 10 L 04/10/24 16:00 BP 153/116 04/10/24 14:00 Pulse Ox 95 04/10/24 16:00 FiO2 Intake & Output 04/09/24 04/10/24 04/10/24 18:59 06:59 18:59 Intake Total 2794.143 0479.723 850 Output Total 2695 505 515 Balance -1439.926 559.723 335 Weight 60.1 kg 58.9 kg Intake: IV 1100 1000 850 0.9 900 900 750 Ampicillin-Sulbactam 3 gm 200 100 100 In Sodium Chloride 0.9% 100 ml @ 200 mls/hr IVPB Q8H [facility] Rx#:[id number] Intake, IV Titration 155.074 64.723 Amount Dexmedetomidine/0.9% NaCl 155.074 64.723 (Pmx) 400 mcg In Empty Bag 1 bag @ 0.2 MCG/KG/HR 3.402 mls/hr IV .Q24H [facility] Rx#:[id number] Output: Urine 2695 505 515 Other: Voiding Method Indwelling Catheter Indwelling Catheter Indwelling Catheter # Bowel Movements 1 - Exam Gen: This is a 58-year-old male, currently calm, opens eyes spontaneously HEENT: Head is atraumatic, normocephalic. Pupils equal, round sclerae is anicteric. NECK: Supple. No JVD. LUNGS: Unlabored, equal air entry, rhonchi scattered throughout HEART: Regular rate and rhythm. No murmur. ABDOMEN: Soft. Nondistended, nontender, bowel sounds are present. No rigidity positive bowel sounds EXTREMITIES: No pedal edema. No calf tenderness. NEUROLOGICAL: limited exam, opens eyes, not following commands. - Labs CBC & Chem 7: 04/11/24 05:59 04/11/24 05:59 Labs: Abnormal Lab Results - Last 24 Hours (Table) 04/10/24 04/10/24 04/10/24 Range/Units 05:42 05:42 13:19 WBC 12.0 H (3.8-10.6) k/uL Neutrophils # 9.1 H (1.3-7.7) k/uL Potassium 3.2 L 3.4 L (3.5-5.1) mmol/L Creatinine 0.42 L (0.66-1.25) mg/dL Microbiology - Last 24 Hours (Table) 04/08/24 01:45 Blood Culture - Preliminary Blood 04/08/24 01:27 Blood Culture - Preliminary Blood Assessment and Plan Assessment: Seizure disorder with breakthrough seizure, prolonged postictal state, possibly secondary to brain metastasis Altered mental status, acute toxic, metabolic encephalopathy, secondary to breakthrough seizures , prolonged EEG pending .neurology following Possible aspiration pneumonia, elevated procalcitonin Hypertension Hypokalemia Metastatic lung cancer with cerebral metastasis, status post radiation and chemotherapy,new temporal lesions noted in November 2023 Chronic paroxysmal atrial fibrillation, not on anticoagulation Severe left and moderate right hip osteoarthritis Severe degenerative disc disease Ongoing nicotine dependence Marijuana use Plan: Continue on current medication regimen ,monitoring and symptomatic treatment. ICU management as per mercerizer. empiric antibiotics. empiric antibiotics. Maintain seizure precautions. Prolonged EEG pending, seizure meds as per neurology. The impression and plan of care has been dictated as directed. : I performed a history and examination of this patient, discussed the same with the dictator. I agree with the dictator's note ,documented as a scribe. Any additional findings or plans will be noted.
--- NOTE | 2024-04-11 16:29 | P.PN ---
Subjective Progress Note Date: 04/11/24 H&P Date: 04/08/24 Chief Complaint: Seizure This is a 58-year-old gentleman with past medical history significant for seizure disorder, atrial fibrillation, hypertension metastatic lung cancer with brain mets, brain surgery, completed radiation of brain and thorax as well as chemo therapy, new right temporal lobe lesion per MRI 11/25 and multiple other medical issues transported by EMS to the ER with altered mental status, suspected seizure with prolonged postictal phase.Discovered by sister, unresponsive, outside, seizure suspected. Last seen well approximately 2 1/2-3 hours prior.Sister reported to ER that patient has a history of seizures with pr olonged postictal phase. Patient did have a seizure in the ER, received Ativan and Keppra. IV fluid hydration, potassium supplementation with Unasyn initiated in the ER. While in the ER patient was extremely restless, agitated, combative, swinging at staff-required multiple staff to restrain. Sitter maintained at bedside. Recently medicated and currently sedated. Radiology studies reviewed/chest x-ray question mild right lower lobe infiltrate-nonspecific. 04/09/2024 aggressive, agitated, swinging requiring 5 people to hold him down, Precedex initiated yesterday in the ICU, restraints required. Continues to require Ativan and Haldol throughout the night. Staff reports upon awakening, patient swearing at staff. Maintaining O2 sats in the 90s on 4 L nasal cannula. Chest x-ray reporting mild diffuse increase in lung markings correlate for pulmonary edema. Maintained on empiric Unasyn for suspected aspiration pneumonia. opens eyes, not following commands. fine tachycardia, Tmax 99.2, WBC 13.7, procalcitonin decreasing to 0.27. Renal function stable. No seizure activity reported. 04/10/2024 Precedex on hold, restraints off, tachycardic. Scheduled for 3- hour/prolonged EEG today. EEG yesterday reported seizure activity. Maintained on Keppra and Vimpat currently. continues on IV fluid hydration and Unasyn for presumptive aspiration. O2 sat mid 90s on 2 L nasal cannula. afebrile. Renal function stable. 04/11/2024 product safety expert remains at bedside. Patient sitting up, alert today. Reports the last thing he remembers was that he possibly fell down in his yard, does not remember the seizure activity. Questioned him as to what he thought the triggers may have been; he reports he has no idea. Denies drinking. Denies med changes and reports compliant with his medication regimen. Denies nausea, vomiting, reports slight blurred vision. Chronic lower back pain. Yesterday prolonged EEG completed, neurology reporting it showed no seizure activity in the preliminary report, final report pending. Vimpat decreased. Tmax 99.2, WBC has normalized. Hemoglobin 12.7, platelets 198. Renal function remained stable. Objective - Vital Signs Vital signs: Vital Signs Temp 97.5 F L 04/11/24 08:00 Pulse 63 04/11/24 11:00 Resp 11 L 04/11/24 11:00 BP 132/93 04/11/24 11:00 Pulse Ox 98 04/11/24 08:00 FiO2 Intake & Output 04/10/24 04/11/24 04/11/24 18:59 06:59 18:59 Intake Total 1000 1960 805 Output Total 625 1375 370 Balance 375 585 435 Weight 62.9 kg 62.9 kg Intake: IV 1000 1000 325 0.9 900 900 225 Ampicillin-Sulbactam 3 gm 100 100 100 In Sodium Chloride 0.9% 100 ml @ 200 mls/hr IVPB Q8H [facility] Rx#:[id number] Oral 960 480 Output: Urine 625 1375 370 Other: Voiding Method Indwelling Catheter Indwelling Catheter Urinal # Bowel Movements 1 1 - Exam Gen: Sitting up in bed, alert, conversing, alert to person and place-hospital, HEENT: Head is atraumatic, normocephalic. Pupils equal, round sclerae is anicteric. NECK: Supple. No JVD. LUNGS: Unlabored, equal air entry, rhonchi scattered throughout HEART: Regular rate and rhythm. No murmur. ABDOMEN: Soft. Nondistended, nontender, bowel sounds are present. No rigidity positive bowel sounds EXTREMITIES: No pedal edema. No calf tenderness. NEUROLOGICAL: limited exam, opens eyes, not following commands. - Labs CBC & Chem 7: 04/11/24 05:59 04/11/24 05:59 Labs: Abnormal Lab Results - Last 24 Hours (Table) 04/11/24 04/11/24 04/11/24 Range/Units 05:59 05:59 11:39 RBC 4.06 L (4.30-5.90) m/uL Hgb 12.7 L (13.0-17.5) gm/dL Hct 38.7 L (39.0-53.0) % Chloride 110 H (98-107) mmol/L Creatinine 0.40 L (0.66-1.25) mg/dL Glucose 105 H (74-99) mg/dL POC Glucose (mg/dL) 222 H (70-110) mg/dL Microbiology - Last 24 Hours (Table) 04/08/24 01:45 Blood Culture - Preliminary Blood 04/08/24 01:27 Blood Culture - Preliminary Blood Assessment and Plan Assessment: Seizure disorder with breakthrough seizure, prolonged postictal state, possibly secondary to brain metastasis Altered mental status, acute toxic, metabolic encephalopathy, secondary to breakthrough seizures , prolonged EEG pending .neurology following Probable aspiration pneumonia, elevated procalcitonin Hypertension Hypokalemia Metastatic lung cancer with cerebral metastasis, status post radiation and chemotherapy,new temporal lesions noted in November 2023 Chronic paroxysmal atrial fibrillation, not on anticoagulation Severe left and moderate right hip osteoarthritis Severe degenerative disc disease Ongoing nicotine dependence Marijuana use Plan: Continue on current medication regimen ,monitoring and symptomatic treatment. ICU management as per rn resource nurse. empiric antibiotics. Maintain seizure precautions. Final report of prolonged EEG pending, seizure meds/adjustments as per neurology. The impression and plan of care has been dictated as directed. : I performed a history and examination of this patient, discussed the same with the dictator. I agree with the dictator's note ,documented as a scribe. Any additional findings or plans will be noted.
--- NOTE | 2024-04-11 20:51 | EEG ---
ELECTROENCEPHALOGRAM REPORT TECHNIQUE: This is a report from a prolonged > 2.0-hour inpatient digital EEG with video component, performed using the 10/20 international electrode placement system. HISTORY: This is a 58-year-old male with history of metastatic lung cancer with cerebral metastases, came to the hospital with breakthrough seizures. The patient had an abnormal EEG yesterday in which there was electrographic seizure recorded during the study. The patient has severely abnormal mental status. Therefore, this EEG was performed to rule out status, rule out any seizures. CURRENT MEDICATIONS: 1. Keppra 1000 mg b.i.d. 2. Vimpat 200 mg b.i.d. started since yesterday after the EEG. FINDINGS: Recording start time: 09:59 a.m. on 04/10/2024. Recording end time: 12:04 p.m. on 04/10/2024. EVENTS: During this 2 hours and 5 minutes continuous video EEG, no clinical or electrographic seizures were recorded. BACKGROUND: Background consists of well-developed, but poorly regulated, somewhat disorganized, predominantly 6 hertz moderate amplitude theta activity intermixed with some fast frequency and some delta frequency in bihemispheric region. Background is posterior dominant. Background does not react to eye opening or closing. ACTIVATION: Hyperventilation: Not performed. Photic stimulation: Photic driving response was not seen. Sleep: Stage I and II sleep were noted intermittently. ABNORMALITIES: There was lot of movement and myogenic artifact seen during this study. Therefore, difficult to assess for underlying epileptiform activity, if any. At times, left occipital-parietal sharp appearing waves were seen, but there was frequent myogenic activity or patient talking during those events. No definitive epileptiform activity was seen. No electrographic seizure was recorded. IMPRESSION: Abnormal > 2-hour video EEG. The background was slow and disorganized, suggestive of moderate encephalopathy. No definitive epileptiform activity was seen. No electrographic seizure was recorded during this prolonged study. MMODL / IJN: [id number] / [facility]ITAL[facility]
[2024-04-12 08:27] VITALS: BP 140/98; PULSE 97; RESP 18; TEMP 98
--- NOTE | 2024-04-12 09:30 | P.PN ---
Subjective Progress Note Date: 04/11/24 04/11/2024: Patient was seen for follow-up. Patient denies headache. No further seizures reported. His mentation has much improved. Patient states that he follows up with 2 doctors but he does not remember the names. 04/10/2024: Patient states that he feels "pretty good". Patient is fully alert and awake and very well-oriented as per examination below. No seizures have been witnessed. Patient tells me that he does not miss the dose at all. He is very much compliant with the medications. He admits to still smoking 1 to 1-1/2 packs/day. 04/09/2024: Patient was seen for a follow-up. Patient is laying in the bed. Patient is still obtunded. As per sitter, patient becomes very "grumpy", asked same question over and over again like "where he is at, how did I get here". He cannot process his thoughts. No obvious seizures noted. Patient complains of "tons of pain". Otherwise obtunded at this time. Objective - Vital Signs Vital signs: Vital Signs Temp 97.5 F L 04/11/24 08:00 Pulse 63 04/11/24 11:00 Resp 11 L 04/11/24 11:00 BP 132/93 04/11/24 11:00 Pulse Ox 98 04/11/24 08:00 FiO2 Intake & Output 04/10/24 04/11/24 04/11/24 18:59 06:59 18:59 Intake Total 1000 1960 805 Output Total 625 1375 370 Balance 375 585 435 Weight 62.9 kg Intake: IV 1000 1000 325 0.9 900 900 225 Ampicillin-Sulbactam 3 gm 100 100 100 In Sodium Chloride 0.9% 100 ml @ 200 mls/hr IVPB Q8H [facility] Rx#:[id number] Oral 960 480 Output: Urine 625 1375 370 Other: Voiding Method Indwelling Catheter Indwelling Catheter Urinal # Bowel Movements 1 1 - Exam Patient is alert and awake, sitting in the bed, fully cooperative with examination and history. Patient states it is March and the year is 1993. He did not correct it to 2023 today. He knows he is in [facility], but states is in [place] in [place]. Speech and language functions are normal. Comprehension is intact. On cranial examination pupils are equal round and reactive to light, visual ayon appeared somewhat full today. His face is symmetric and tongue protrudes midline. On muscle strength testing, the strength is normal in arms and legs distally and proximally. Sensory to touch is equal. - Labs CBC & Chem 7: 04/11/24 05:59 04/11/24 05:59 Labs: Abnormal Lab Results - Last 24 Hours (Table) 04/10/24 04/11/24 04/11/24 Range/Units 13:19 05:59 05:59 RBC 4.06 L (4.30-5.90) m/uL Hgb 12.7 L (13.0-17.5) gm/dL Hct 38.7 L (39.0-53.0) % Potassium 3.4 L (3.5-5.1) mmol/L Chloride 110 H (98-107) mmol/L Creatinine 0.40 L (0.66-1.25) mg/dL Glucose 105 H (74-99) mg/dL POC Glucose (mg/dL) (70-110) mg/dL 04/11/24 Range/Units 11:39 RBC (4.30-5.90) m/uL Hgb (13.0-17.5) gm/dL Hct (39.0-53.0) % Potassium (3.5-5.1) mmol/L Chloride (98-107) mmol/L Creatinine (0.66-1.25) mg/dL Glucose (74-99) mg/dL POC Glucose (mg/dL) 222 H (70-110) mg/dL Microbiology - Last 24 Hours (Table) 04/08/24 01:45 Blood Culture - Preliminary Blood 04/08/24 01:27 Blood Culture - Preliminary Blood Assessment and Plan Assessment: * Breakthrough seizure, with prolonged postictal state. He had similar presentation of prolonged postictal state in the past as well. * Abnormal EEG, with recording of a focal onset complex partial electrographic seizure. * Metastatic lung cancer, with cerebral metastasis. * Possible aspiration pneumonia due to seizure * Hypokalemia, improved * Hypernatremia, mild * Patient is fully compliant with medications. * Tobacco use * Marijuana use * Atrial fibrillation, currently not on anticoagulation. Plan: * Patient had a breakthrough seizure, unclear cause. Patient states he is fully compliant with the medications. He has been on Keppra 1000 mg twice daily. * Initial EEG 04/09/2024 was abnormal due to recording of an electrographic seizure, that started with left occipital sharp and slow waves, that extended to bihemispheric region with rhythmic high amplitude generalized sharp and slow waves at 3 Hz, lasted for about 80 seconds. Clinically this was associated with repetitive mouth and head movement. It also showed background slowing and disorganization suggestive of generalized cerebral dysfunction as can be seen with toxic metabolic encephalopathy related to diffuse structural brain abnormality. Clinical correlation is recommended. No electrographic evidence of status epilepticus. Recommend prolonged study for further evaluation. * Patient has been started now on Vimpat, and was given loading dose 200 mg x 2. * Prolonged EEG performed 04/10/2024 for >2 hours was abnormal due to background slowing and disorganization, suggestive of moderate encephalopathy. No definitive epileptiform activity was seen. No electrographic seizure was recorded during this > our study. * Continue Vimpat 100 mg twice daily. * Patient on aspirin for atrial fibrillation. We will defer to IM need for any anticoagulation. * Patient on Unasyn for aspiration pneumonia. * Continue seizure precautions. * DVT prophylaxis: Start heparin 5000 units subcu every 12 hours. * Repeat CT head performed today revealed redemonstrated bilateral posterior craniotomy flaps with underlying peripherally calcified areas of encephalomalacia at the occipitoparietal junctions on both sides. Some faint hyperdensity along the lateral left temporal lobe is also unchanged, suggesting some parenchymal calcification. No acute intracranial abnormality seen. New large air-fluid level left maxillary sinus. Correlate for acute sinusitis. Patient on Unasyn. * Neurologically clear for discharge. Recommend follow-up with neurologist outpatient. Also recommend follow-up with oncologist as scheduled.
--- NOTE | 2024-04-12 12:36 | P.DS ---
Providers Date of admission: 04/08/24 01:13 Expected date of discharge: 04/12/24 Attending physician: Manjeet Del Rosario MD Consults: 04/08/24 01:13 Consult Physician Routine Consulting Provider: Ronni San Consult Reason/Comments: Seizure Do you want consulting provider notified?: Yes 04/08/24 14:21 Consult Physician Routine Consulting Provider: Rod Walters Consult Reason/Comments: seizure suspected, poss. aspiration pneumonia, hy poxia Do you want consulting provider notified?: Yes Primary care physician: Manjeet Del Rosario MD Hospital Course: Final Diagnoses: Seizure disorder with breakthrough seizure, prolonged postictal state, possibly secondary to brain metastasis. Suspect recurrent seizures Altered mental status, acute toxic, metabolic encephalopathy, secondary to breakthrough seizures , prolonged EEG reported no evidence of seizure activity, cleared by neurology. Probable aspiration pneumonia, elevated procalcitonin Hypertension Hypokalemia Metastatic lung cancer with cerebral metastasis, status post radiation and chemotherapy,new temporal lesions noted in November 2023 Chronic paroxysmal atrial fibrillation, not on anticoagulation Severe left and moderate right hip osteoarthritis Severe degenerative disc disease Ongoing nicotine dependence Marijuana use New onset diabetes mellitus, hemoglobin A1c 6.6. Case management arranging glucometer and testing supplies. As this is a new onset, recommend testing 4 times daily, maintain log of blood sugars and take to follow-up visit with PCP for further recommendations. Metformin initiated. Hospital course:This is a 58-year-old gentleman with past medical history significant for seizure disorder, atrial fibrillation, hypertension metastatic lung cancer with brain mets, brain surgery, completed radiation of brain and thorax as well as chemo therapy, new right temporal lobe lesion per MRI 11/25 and multiple other medical issues transported by EMS to the ER with altered mental status, suspected seizure with prolonged postictal phase.Discovered by sister, unresponsive, outside, seizure suspected. Last seen well approximately 2 1/2-3 hours prior.Sister reported to ER that patient has a history of seizures with prolonged postictal phase. Patient did have a seizure in the ER, received Ativan and Keppra. IV fluid hydration, potassium supplementation with Unasyn initiated in the ER. While in the ER patient was extremely restless, agitated, combative, swinging at staff-required multiple staff to restrain. Sitter maintained at bedside. Recently medicated and currently sedated. Radiology studies reviewed/chest x-ray question mild right lower lobe infiltrate- nonspecific. 04/09/2024 aggressive, agitated, swinging requiring 5 people to hold him down, Precedex initiated yesterday in the ICU, restraints required. Continues to require Ativan and Haldol throughout the night. Staff reports upon awakening, patient swearing at staff. Maintaining O2 sats in the 90s on 4 L nasal cannula. Chest x-ray reporting mild diffuse increase in lung markings correlate for pulmonary edema. Maintained on empiric Unasyn for suspected aspiration pneumonia. opens eyes, not following commands. fine tachycardia, Tmax 99.2, WBC 13.7, procalcitonin decreasing to 0.27. Renal function stable. No seizure activity reported. 04/10/2024 Precedex on hold, restraints off, tachycardic. Scheduled for 3-ho ur/prolonged EEG today. EEG yesterday reported seizure activity. Maintained on Keppra and Vimpat currently. continues on IV fluid hydration and Unasyn for presumptive aspiration. O2 sat mid 90s on 2 L nasal cannula. afebrile. Renal function stable. 04/11/2024 consultant in ergonomics and safety remains at bedside. Patient sitting up, alert today. Reports the last thing he remembers was that he possibly fell down in his yard, does not remember the seizure activity. Questioned him as to what he thought the triggers may have been; he reports he has no idea. Denies drinking. Denies med changes and reports compliant with his medication regimen. Denies nausea, vomiting, reports slight blurred vision. Chronic lower back pain. Yesterday prolonged EEG completed, neurology reporting it showed no seizure activity in the preliminary report, final report pending. Vimpat decreased. Tmax 99.2, WBC has normalized. Hemoglobin 12.7, platelets 198. Renal function remained stable. ICU management as per medical massage therapist. empiric antibiotics. Maintain seizure precautions. Final report of prolonged EEG pending, seizure meds/adjustments as per neurology. 04/12/2024 continues on Vimpat and Keppra , no further seizure activity .prolonged EEG reported no evidence of seizure activity .alert and oriented x 3, no gross focal neurologic deficit.denies any chest pain, palpitations or shortness of breath. Denies any lightheadedness dizziness or focal deficits. Denies any headache. denies any imbalance. Cleared by neurology for discharge. Significant clinical improvement. Patient will be discharged home today, in a stable condition with guarded prognosis pending final DC recommendations and clearance per medical massage therapist. Patient lives with his sister and has been advised to follow-up with neurology as advised. Nicotine and marijuana cessation reinforced. The impression and plan of care has been dictated as directed. : I performed a history and examination of this patient, discussed the same with the dictator. I agree with the dictator's note ,documented as a scribe. Any additional findings or plans will be noted. Patient Condition at Discharge: Stable Plan - Discharge Summary Discharge Rx Participant: No New Discharge Prescriptions: New Nicotine 14Mg/24Hr Patch [Habitrol] 1 patch TRANSDERM DAILY patch Amoxic-Pot Clav 875-125Mg [Augmentin 875-125] 1 tab PO BID 5 Days #10 tab Lacosamide [Vimpat] 100 mg PO BID 3 Days #12 tab metFORMIN HCL 500 mg PO DAILY #30 tablet Continue Pantoprazole [Protonix] 40 mg PO DAILY Albuterol Inhaler [Ventolin Hfa Inhaler] 1 puff INHALATION RT-QID PRN PRN Reason: Shortness Of Breath Aspirin 81 mg PO DAILY Atorvastatin [Lipitor] 10 mg PO DAILY Metoprolol Succinate (ER) [Toprol XL] 100 mg PO BID #60 tab buprenorphine HCL [Subutex] 8 mg PO BID lisinopriL [Zestril] 5 mg PO DAILY dilTIAZem HCL [Cardizem CD] 240 mg PO DAILY Zolpidem Tartrate [Ambien Cr] 12.5 mg PO HS PRN PRN Reason: Insomnia levETIRAcetam [Keppra] 1,000 mg PO BID Discharge Medication List Pantoprazole [Protonix] 40 mg PO DAILY 11/26/22 [History] Metoprolol Succinate (ER) [Toprol XL] 100 mg PO BID #60 tab 04/25/23 [Rx] Albuterol Inhaler [Ventolin Hfa Inhaler] 1 puff INHALATION RT-QID PRN 11/07/23 [History] Zolpidem Tartrate [Ambien Cr] 12.5 mg PO HS PRN 11/07/23 [History] buprenorphine HCL [Subutex] 8 mg PO BID 11/07/23 [History] dilTIAZem HCL [Cardizem CD] 240 mg PO DAILY 11/07/23 [History] lisinopriL [Zestril] 5 mg PO DAILY 11/07/23 [History] Aspirin 81 mg PO DAILY 04/08/24 [History] Atorvastatin [Lipitor] 10 mg PO DAILY 04/08/24 [History] levETIRAcetam [Keppra] 1,000 mg PO BID 04/08/24 [History] Amoxic-Pot Clav 875-125Mg [Augmentin 875-125] 1 tab PO BID 5 Days #10 tab 04/12/24 [Rx] Lacosamide [Vimpat] 100 mg PO BID 3 Days #12 tab 04/12/24 [Rx] Nicotine 14Mg/24Hr Patch [Habitrol] 1 patch TRANSDERM DAILY patch 04/12/24 [Rx] metFORMIN HCL 500 mg PO DAILY #30 tablet 04/12/24 [Rx] Follow up Appointment(s)/Referral(s): Manjeet Del Rosario MD [Primary Care Provider] - 04/15/24 9:[address] Sullivan MD [Medical Doctor] - 1 Week (called 3x no answer/no vm. ) Patient Instructions/Handouts: Seizure/Epilepsy Discharge Instructions & Follow-Up Activity/Diet/Wound Care/Special Instructions: Patient and family declined home care. Hemoglobin A1c 6.6, case management/social work to arrange glucometer and testing supplies at discharge. Discharge Disposition: HOME SELF-CARE
--- NOTE | 2024-04-12 12:40 | P.PN ---
Subjective Progress Note Date: 04/12/24 Principal diagnosis: Altered mental status This is a 58-year-old white male brought into the ER yesterday at 10:03 PM, patient is known to have history of multiple medical problems including seizure disorder, atrial fibrillation, hypertension, history of lung cancer and brain m etastasis. Patient also had previous history of brain surgery. Patient was brought into the ER mostly with altered level of consciousness, suspected seizure. Apparently he was seen by neurology on consultation, his seizure medications were addressed, patient was extremely restless and agitated down in the ER, and the decision was made to transfer the patient to the ICU. In the ICU, patient was extremely restless and agitated, took almost 4 people to hold him down, and he required restraints. I saw the patient in the ICU and I recommended Ativan to be given and also recommended patient to be started on Precedex. Apparently according to the sister, patient had previous history of seizures activity with prolonged postictal phase. Cannot get any information from the patient himself. Patient seems to be restless agitated, and does not seem to be coherent Patient was evaluated on 04/09/24, patient is on 4 L nasal cannula, remains on Precedex at 0.8 mcg/kg/h, patient is sedated, opens eyes only does not follow any instructions. Chest x-ray showed mild diffuse increase in lung markings, possible pulmonary edema or I would be concerned mostly about aspiration pneumonia considering his altered mental status for and is empirically on antibiotics, he is also receiving diuretics considering his persistent abnormal mental status, patient may require MRI, however the decision will be left to neurology on the case to make that decision ABG today showed a pO2 of 65 pCO2 33 pH of 7.51on 32% FiO2. WBC count is 13.7 hemoglobin 14.6 basic metabolic profile is normal and renal profile is normal procalcitonin level is elevated at 0.27, patient is empirically on Unasyn for presumptive aspiration pneumonia Patient was evaluated today on 04/10/2024, patient remains on vent, he is on IV fluid at 75 cc/h, patient apparently is having intermittent episodes of seizures based on his EEG yesterday, he had a seizure apparently while he was having EEG. Patient is now on Keppra and Vimpat, and neurology is recommending prolonged EEG, 3-1/2-hour EEG which will be done today. In the meantime his seizure medications are being adjusted, I have a feeling that this patient may have to be transferred to a tertiary care center where they have 24 EEG monitoring. In the meantime patient is receiving Unasyn for presumptive or potential aspiration pneumonia. WBC count is 12 hemoglobin 14.8 basic metabolic profile is normal renal profile is normal, procalcitonin level is 0.27 Patient was evaluated today on 04/11/2024, remains in the ICU, apparently his prolonged EEG showed no evidence of seizure activity, patient is awake today, he has poor memory, could not tell me the year, could not tell me the name of the president, patient seems to be a bit forgetful, otherwise he is not in any distress, and I plan to transfer the patient out of the ICU to a medical surgical floor.WBC count is 10.3 hemoglobin 12.7 basic metabolic profile is normal renal profile is normal Patient was evaluated today on 04/12/2024, patient is back to his baseline, today the patient is not in any distress, no further seizure episodes, and his postictal phase has completely resolved. He was cleared for discharge by neurology, and the patient will likely be discharged home in the next couple of hours. Objective - Vital Signs Vital signs: Vital Signs Temp 98.0 F 04/12/24 08:00 Pulse 97 04/12/24 08:00 Resp 18 04/12/24 08:00 BP 140/98 04/12/24 08:00 Pulse Ox 97 04/12/24 08:00 FiO2 Intake & Output 04/11/24 04/12/24 04/12/24 18:59 06:59 18:59 Intake Total 905 295 Output Total 374 Balance 531 295 Weight 62.9 kg Intake: IV 425 175 0.9 225 75 Ampicillin-Sulbactam 3 gm 200 100 In Sodium Chloride 0.9% 100 ml @ 200 mls/hr IVPB Q8H [facility] Rx#:[id number] Oral 480 120 Output: Urine 374 Other: Voiding Method Urinal Toilet Toilet Urinal Urinal # Voids 3 # Bowel Movements 2 1 - Exam General: Reveals a 58-year-old white male, in no distress Skin: Skin is warm and dry and no rashes or lesions are noted. Eye: Pupils are equal, round and reactive to light, extra-ocular movements are intact; there is normal conjunctiva bilaterally. Ears, nose, mouth and throat: There are moist mucous membranes and no oral lesions. Neck: The neck is supple, there is no tenderness or JVD. Cardiovascular: There is a regular rate and rhythm. No murmur, rub or gallop is appreciated. Respiratory: Clear bilaterally no rhonchi no wheezes Gastrointestinal: Soft, non-distended, non-tender abdomen without masses or organomegaly noted. There is no rebound or guarding present. Bowel sounds are unremarkable. Musculoskeletal: No evidence of deformities, seems to be having no limitation range of motion Neurological: Alert oriented x 3 no gross focal neurologic deficit Psychiatric: Normal mood affect and normal mental status - Labs CBC & Chem 7: 04/11/24 05:59 04/11/24 05:59 Labs: Microbiology - Last 24 Hours (Table) 04/08/24 01:45 Blood Culture - Preliminary Blood 04/08/24 01:27 Blood Culture - Preliminary Blood Assessment and Plan Assessment: Impression: Altered mental status, suspect recurrent seizures Breakthrough seizure with prolonged postictal state History of metastatic lung cancer with cerebral metastasis not truly seen on CT of the brain Aspiration pneumonia is strongly suspected Tobacco dependence syndrome and history of marijuana use Chronic atrial fibrillation History of hypertension Recommendation: Agree with discharge planning today. As long as the patient is cleared by neurology for discharge x-ray is showing significant improvement, patient is on room air, Will clear for discharge if cleared by neurology Time with Patient: Less than 30
== END 2024-04-12 13:26 | disposition home or self-care (01) | DRG 53 ==
LOC: EC 22:03 → 3SCARD 04-08 01:13 → 2SICU 04-08 15:00
PROVIDERS: ADMIT Family Medicine; ATTEND Family Medicine
DX: G40.209 Localization-related (focal) (partial) symptomatic epilepsy and epileptic syndromes with complex partial seizures, not intractable, without status epilepticus (principal); J69.0 Pneumonitis due to inhalation of food and vomit; G92.8 Other toxic encephalopathy; C79.31 Secondary malignant neoplasm of brain; E87.0 Hyperosmolality and hypernatremia; G93.89 Other specified disorders of brain; E87.1 Hypo-osmolality and hyponatremia; E11.9 Type 2 diabetes mellitus without complications; I10 Essential (primary) hypertension; E87.6 Hypokalemia; G89.29 Other chronic pain; M54.50 Low back pain, unspecified; I45.10 Unspecified right bundle-branch block; I48.0 Paroxysmal atrial fibrillation; M16.0 Bilateral primary osteoarthritis of hip; I49.1 Atrial premature depolarization; M50.30 Other cervical disc degeneration, unspecified cervical region; M48.02 Spinal stenosis, cervical region; J98.11 Atelectasis; R09.02 Hypoxemia; F17.210 Nicotine dependence, cigarettes, uncomplicated; Z71.6 Tobacco abuse counseling; Z79.82 Long term (current) use of aspirin; Z79.899 Other long term (current) drug therapy; Z78.1 Physical restraint status; Z85.118 Personal history of other malignant neoplasm of bronchus and lung; Z92.21 Personal history of antineoplastic chemotherapy; Z92.3 Personal history of irradiation; Z71.3 Dietary counseling and surveillance; Z88.1 Allergy status to other antibiotic agents
CPT/HCPCS: 36415; 36600; 51702; 70450; 71045; 72125; 72170; 80048; 80053; 80143; 80179; 80306; 81001; 82805; 83605; 83735; 84132; 84145; 85025; 85027; 87040; 93005; 95700; 95713; 95816; 96365; 96366; 96367; 96368; 96375; 96376; 99291

== ENCOUNTER 2024-05-13 13:30 | Inpatient (IN) | payer OTHER ==
[~2024-05-13 13:30] MED LIST: SODIUM CHLORIDE 0.9% 1,000 ML BAG ONE
[2024-05-13] MEDS ORDERED: LACOSAMIDE 150 MG TABLET ONE (22:30)
[2024-05-13] MEDS ORDERED: levETIRAcetam 500 MG TAB ONE (22:30)
[2024-05-13] MEDS ORDERED: METOPROLOL TARTRATE 50 MG TAB ONE (22:30)
[2024-05-14] MEDS ORDERED: PANTOPRAZOLE 40 MG TABLET PO ONE (09:34)
[2024-05-14] MEDS ORDERED: LACOSAMIDE 50 MG TABLET ONE ×2 (09:34→21:23)
[2024-05-14] MEDS ORDERED: ATORVASTATIN 10 MG TAB ONE (09:36)
[2024-05-14] MEDS ORDERED: levETIRAcetam 500 MG TAB ONE ×2 (09:37→21:21)
[2024-05-14] MEDS ORDERED: ASPIRIN 81 MG ONE (10:06)
[2024-05-14] MEDS ORDERED: SODIUM CHLORIDE 0.45% 1,000 ML BAG ONE (12:00)
[2024-05-14] MEDS ORDERED: POTASSIUM CHLORIDE ER 20 MEQ TAB.ER PO ONE (13:07)
[2024-05-14] MEDS ORDERED: ZOLPIDEM 5 MG TAB ONE (21:24)
[2024-05-14] MEDS ORDERED: METOPROLOL TARTRATE 50 MG TAB ONE (22:27)
[2024-05-14] MEDS ORDERED: METOPROLOL SUCCINATE (ER) 50 MG TAB.ER.24H PO ONE (22:27)
[2024-05-15] MEDS ORDERED: ACETAMINOPHEN TAB 325 MG TAB ONE (04:40)
[2024-05-15] MEDS ORDERED: LACOSAMIDE 50 MG TABLET ONE ×2 (09:49→21:03)
[2024-05-15] MEDS ORDERED: DEXTROSE 5% IN WATER 1,000 ML BAG ONE (12:12)
[2024-05-15] MEDS ORDERED: POTASSIUM CHLORIDE ER 20 MEQ TAB.ER PO ONE (12:26)
[2024-05-15] MEDS ORDERED: METOPROLOL SUCCINATE (ER) 50 MG TAB.ER.24H PO ONE (21:03)
[2024-05-15] MEDS ORDERED: levETIRAcetam 500 MG TAB ONE (21:06)
[2024-05-16] MEDS ORDERED: ZOLPIDEM 5 MG TAB ONE (01:04)
[2024-05-16] MEDS ORDERED: ACETAMINOPHEN TAB 325 MG TAB ONE (03:02)
[2024-05-16] MEDS ORDERED: LACOSAMIDE 50 MG TABLET ONE ×2 (07:29→21:02)
[2024-05-16] MEDS ORDERED: METOPROLOL SUCCINATE (ER) 50 MG TAB.ER.24H PO ONE ×2 (07:30→21:03)
[2024-05-16] MEDS ORDERED: metFORMIN 500 MG TAB ONE (07:30)
[2024-05-16] MEDS ORDERED: levETIRAcetam 500 MG TAB ONE ×3 (07:30→21:04)
[2024-05-16] MEDS ORDERED: PANTOPRAZOLE 40 MG TABLET PO ONE (07:30)
[2024-05-16] MEDS ORDERED: ASPIRIN 81 MG ONE (07:30)
[2024-05-16] MEDS ORDERED: ATORVASTATIN 10 MG TAB ONE (07:30)
[2024-05-16] MEDS ORDERED: DILTIAZEM CD 240 MG CAP.ER.24H PO ONE (09:00)
[2024-05-16] MEDS ORDERED: DEXTROSE 5% IN WATER 1,000 ML BAG ONE (09:00)
[2024-05-16] MEDS ORDERED: DEXAMETHASONE SOD PHOSPHATE 4 MG/ML 1 ML VIAL ONE ×2 (11:23→21:10)
[2024-05-16] MEDS ORDERED: POTASSIUM CHLORIDE ER 20 MEQ TAB.ER PO ONE (12:06)
[2024-05-16] MEDS ORDERED: INSULIN ASPART (NovoLOG) 100 UNIT/ML VIAL SQ ONE ×2 (17:35→21:02)
[2024-05-17] MEDS ORDERED: INSULIN ASPART (NovoLOG) 100 UNIT/ML VIAL SQ ONE ×3 (05:27→22:00)
[2024-05-17] MEDS ORDERED: DEXAMETHASONE SOD PHOSPHATE 4 MG/ML 1 ML VIAL ONE ×3 (05:28→20:49)
[2024-05-17] MEDS ORDERED: METOPROLOL SUCCINATE (ER) 50 MG TAB.ER.24H PO ONE ×2 (08:37→20:49)
[2024-05-17] MEDS ORDERED: ASPIRIN 81 MG ONE (08:38)
[2024-05-17] MEDS ORDERED: levETIRAcetam 500 MG TAB ONE ×2 (08:38→22:00)
[2024-05-17] MEDS ORDERED: ATORVASTATIN 10 MG TAB ONE (08:38)
[2024-05-17] MEDS ORDERED: metFORMIN 500 MG TAB ONE (08:38)
[2024-05-17] MEDS ORDERED: PANTOPRAZOLE 40 MG TABLET PO ONE (08:38)
[2024-05-17] MEDS ORDERED: DILTIAZEM CD 240 MG CAP.ER.24H PO ONE (09:00)
[2024-05-17] MEDS ORDERED: LACOSAMIDE 50 MG TABLET ONE ×2 (10:02→20:49)
[2024-05-17] MEDS ORDERED: ZOLPIDEM 5 MG TAB ONE (20:49)
[2024-05-18] MEDS ORDERED: DEXAMETHASONE SOD PHOSPHATE 4 MG/ML 1 ML VIAL ONE ×3 (05:55→20:01)
[2024-05-18] MEDS ORDERED: INSULIN ASPART (NovoLOG) 100 UNIT/ML VIAL SQ ONE ×3 (06:20→21:21)
[2024-05-18] MEDS ORDERED: metFORMIN 500 MG TAB ONE (08:51)
[2024-05-18] MEDS ORDERED: METOPROLOL SUCCINATE (ER) 50 MG TAB.ER.24H PO ONE ×2 (08:51→20:01)
[2024-05-18] MEDS ORDERED: ATORVASTATIN 10 MG TAB ONE (08:51)
[2024-05-18] MEDS ORDERED: ASPIRIN 81 MG ONE (08:51)
[2024-05-18] MEDS ORDERED: PANTOPRAZOLE 40 MG TABLET PO ONE (08:51)
[2024-05-18] MEDS ORDERED: levETIRAcetam 500 MG TAB ONE ×2 (08:52→19:59)
[2024-05-18] MEDS ORDERED: LACOSAMIDE 50 MG TABLET ONE ×2 (08:55→20:02)
[2024-05-19] MEDS ORDERED: DEXAMETHASONE SOD PHOSPHATE 4 MG/ML 1 ML VIAL ONE ×2 (05:58→13:04)
[2024-05-19] MEDS ORDERED: INSULIN ASPART (NovoLOG) 100 UNIT/ML VIAL SQ ONE ×2 (06:08→13:03)
[2024-05-19] MEDS ORDERED: ASPIRIN 81 MG ONE (08:26)
[2024-05-19] MEDS ORDERED: LACOSAMIDE 50 MG TABLET ONE (08:26)
[2024-05-19] MEDS ORDERED: METOPROLOL SUCCINATE (ER) 50 MG TAB.ER.24H PO ONE (08:26)
[2024-05-19] MEDS ORDERED: ATORVASTATIN 10 MG TAB ONE (08:27)
[2024-05-19] MEDS ORDERED: PANTOPRAZOLE 40 MG TABLET PO ONE (08:27)
[2024-05-19] MEDS ORDERED: metFORMIN 500 MG TAB ONE (08:27)
[2024-05-19] MEDS ORDERED: levETIRAcetam 500 MG TAB ONE (08:28)
[2024-05-19] MEDS ORDERED: DILTIAZEM CD 240 MG CAP.ER.24H PO ONE (09:00)
--- NOTE | 2024-06-11 19:49 | MR ---
Patient Royce Riddle ID [id number] Order # EXAMINATION TYPE: MR brain wo/w con DATE OF EXAM: 05/15/2024 COMPARISON: CT brain 05/13/2024. HISTORY: Lung cancer and confusion CONTRAST: Performed utilizing 6 mL intravenous Gadavist gadolinium contrast. TECHNIQUE: Multiplanar, multiecho imaging on a 3.0 Tasha magnet is performed through the brain. Stud y is performed within 24 hours of arrival to the hospital. The craniovertebral junction is normal. The pituitary is normal. Diffusion-weighted imaging is performed. Hyperintensities on T2 sequences within the occipital lobes . This has a large volume of hypointensity is well. T2-weighted sequences this measures 2.5 x 1.6 cm on the left posterior to the occipital horn lateral ventricle with some surrounding vasogenic edema. On the right posterior centrum semiovale this measures 2.5 x 1.5 cm with surrounding vasogenic edema . Additional punctate hyperintensities on inversion recovery sequences, likely on the basis of chronic white matter ischemic changes. On postcontrast imaging this may have some peripheral enhancement correlating with the diffusion hype rintensities. Ventricles and sulci are prominent for the patient age. IMPRESSION: 1. Bilateral occipital lobe masses with surrounding vasogenic edema compatible with metastatic lesion s. 2. Atrophy
--- NOTE | 2024-06-19 07:32 | XR ---
Patient Royce Riddle ID [id number] EXAMINATION TYPE: XR abdomen 1V DATE OF EXAM: 05/13/2024 11:50 AM CLINICAL INDICATION: [id number] COMPARISON: None. TECHNIQUE: One radiographic view of the abdomen was obtained. FINDINGS: The bowel gas pattern is nonspecific without dilated loops of small or large bowel. . Fecal material and gas are demonstrated throughout the colon and rectum. There is no evidence for organomegaly or pneumoperitoneum. The osseous structures are intact. No ab normal calcifications are present. Fixation hardware in the lumbar spine L4-L5 and S1 appears intact. Gaseous dilation of colon. Surgical suture in the pelvis. IMPRESSION: 1. Nonspecific bowel gas pattern without radiographic evidence for acute process. 2. Post surgical changes with hardware intact.
--- NOTE | 2024-06-19 07:33 | XR ---
Patient Royce Riddle ID [id number] EXAMINATION TYPE: XR chest 2V DATE OF EXAM: 05/13/2024 11:55 AM CLINICAL INDICATION: Weakness COMPARISON: THIS EXAM WAS READ DURING PACS DOWNTIME, NO PRIORS AVAILABLE. TECHNIQUE: XR chest 2V Frontal view of the chest. FINDINGS: Lungs/Pleura: There is no evidence of pleural effusion, focal consolidation, or pneumothorax. Pulmonary vascularity: Unremarkable. Heart/mediastinum: Cardiomediastinal silhouette is unremarkable. Musculoskeletal: No acute osseous pathology. Other findings: None IMPRESSION: No acute cardiopulmonary disease/process.
== END 2024-05-19 17:33 | disposition home or self-care (01) | DRG 469 ==
LOC: 6NMEDSUR 13:30 → UNDOADMIN 22:34 → 6NMEDSUR 22:34 → UNDODISIN 05-19 17:33
PROVIDERS: ADMIT Family Medicine; ATTEND Family Medicine
DX: N17.0 Acute kidney failure with tubular necrosis (principal); E87.20 Acidosis, unspecified; C34.90 Malignant neoplasm of unspecified part of unspecified bronchus or lung; E87.0 Hyperosmolality and hypernatremia; C79.31 Secondary malignant neoplasm of brain; E11.9 Type 2 diabetes mellitus without complications; E86.0 Dehydration; E87.6 Hypokalemia; G40.909 Epilepsy, unspecified, not intractable, without status epilepticus; E86.1 Hypovolemia; Z92.21 Personal history of antineoplastic chemotherapy; Z79.82 Long term (current) use of aspirin; Z79.899 Other long term (current) drug therapy; Z88.1 Allergy status to other antibiotic agents
CPT/HCPCS: 70450; 70553; 71046; 74018; 93005; 96360; 99285

== ENCOUNTER 2024-06-11 04:28 | Inpatient (IN) | payer OTHER ==
[2024-06-11 05:44] LABS: Appearance,Urine Clear (Clear); Bilirubin,Urine Negative (Negative); Blood,Urine Negative (Negative); Color,Urine Colorless; Glucose,Urine (UA) Negative (Negative); Ketones,Urine Negative (Negative); Leukocyte Esterase,Urine Negative (Negative); Nitrite,Urine Negative (Negative); PH, Urine 5.5 (5.0-8.0); Protein,Urine Negative (Negative); Urobilinogen,Urine <2.0 mg/dL (<2.0)
[2024-06-11 05:49] LABS: ALT 40 U/L (4-49); AST 42 U/L (17-59); African American GFR (CKD) 70 (>60 ml/min/1.73 sqM); Albumin 3.8 g/dL (3.5-5.0); Alkaline Phosphatase 144 U/L (38-126); Blood Urea Nitrogen 68 mg/dL (9-20); Calcium 9.8 mg/dL (8.4-10.2); Carbon Dioxide 28 mmol/L (22-30); Chloride 95 mmol/L (98-107); Glucose 171 mg/dL (74-99); Non-African American GFR(CKD) 60 (>60 ml/min/1.73 sqM); Total Bilirubin 0.7 mg/dL (0.2-1.3); Total Protein 6.7 g/dL (6.3-8.2)
--- NOTE | 2024-06-11 06:10 | XR ---
EXAM: XR Chest, 1 View CLINICAL HISTORY: presents with bilateral leg/feet pain, edema, blistering wounds for the past month. Lung CA with mets to the brain. Pt was brought in with by his sister. TECHNIQUE: Frontal view of the chest. COMPARISON: 04/11/24 FINDINGS: Lungs: Unremarkable. No consolidation. Pleural space: Unremarkable. Mediastinum: Calcified aorta. Normal mediastinal contour. Bones/joints: No acute findings. IMPRESSION: No acute findings
[2024-06-11 06:15] LABS: INR 0.8 (<1.2); Prothrombin Time 9.5 sec (10.0-12.5)
[2024-06-11 06:35] LABS: Anisocytosis Slight; Basophils % (A) 0 %; Eosinophils # (A) 0.1 k/uL (0-0.7); Eosinophils % (A) 1 %; HGB 12.5 gm/dL (13.0-17.5); Lymphocytes # (A) 0.7 k/uL (1.0-4.8); Lymphocytes % (A) 7 %; MCH 31.3 pg (25.0-35.0); MCHC 32.9 g/dL (31.0-37.0); MCV 95.3 fL (80.0-100.0); Macrocytosis Slight; Mean Platelet Volume 10.3; Monocytes # (A) 0.4 k/uL (0-1.0); Monocytes % (A) 4 %; Neutrophils # (A) 8.3 k/uL (1.3-7.7); Neutrophils % (A) 86 %; Platelet Count 209 k/uL (150-450); Poikilocytosis Slight; RBC 3.99 m/uL (4.30-5.90); RDW 17.8 % (11.5-15.5); WBC 9.6 k/uL (3.8-10.6)
[2024-06-11 06:39] LABS: C Reactive Protein 36.9 mg/dL (<1.0)
[2024-06-11] MEDS ORDERED: VANCOMYCIN IV PER PHARMACY 1 EACH MISC MISCELLANE PRN (06:43)
--- NOTE | 2024-06-11 06:43 | ED ---
General Adult HPI - General Chief complaint: Extremity Problem,Nontraumatic Stated complaint: Cellulitis Time Seen by Provider: 06/11/24 04:45 Source: patient Mode of arrival: wheelchair Limitations: physical limitation - History of Present Illness Initial comments: Patient is a 59-year-old man with history of metastatic lung cancer, who presents with complaint that he is feeling dizzy and lightheaded. The patient's is poor historian. He is able answer direct yes/no questions but is not able to give much open-ended history. The patient's sister is here with him and does provide much of the history. She states that he had come out of his room t onight stating that he was very dizzy and wanted to go to the hospital. They both acknowledge she has been feeling dizzy going back quite some time. The patient had been diagnosed with cancer, had previous surgery, chemotherapy and radiation. Had been receiving immunotherapy. The patient has been feeling worse progressively over the past few months since he had had a fall. Patient also complains of redness and swelling to bilateral lower extremities as well as an increase in weeping of drainage from the legs. He has not noted fevers but patient has been having chills recently. -: hour(s) Severity scale (1-10): 0 Improves with: immobilization Worsens with: movement Associated Symptoms: other Treatments Prior to Arrival: none - Related Data Home Medications Medication Instructions Recorded Confirmed Albuterol Inhaler [Ventolin Hfa 1 puff INHALATION RT-QID PRN 11/07/23 06/11/24 Inhaler] buprenorphine HCL [Subutex] 8 mg PO BID 11/07/23 06/11/24 Aspirin 81 mg PO DAILY 04/08/24 06/11/24 levETIRAcetam [Keppra] 1,000 mg PO BID 04/08/24 06/11/24 Furosemide [Lasix] 40 mg PO DAILY 06/11/24 06/11/24 Mupirocin 2% Oint [Bactroban 2% 1 applic TOPICAL BID 06/11/24 06/11/24 Oint] dexAMETHasone 2 mg PO DAILY 06/11/24 06/11/24 Previous Rx's Medication Instructions Recorded Metoprolol Succinate (ER) [Toprol 100 mg PO BID #60 tab 04/25/23 XL] Amoxic-Pot Clav 875-125Mg 1 tab PO BID 5 Days #10 tab 04/12/24 [Augmentin 875-125] Amiodarone [Cordarone] 400 mg PO BID #60 tab 06/19/24 Doxycycline Hyclate 100 mg PO BID #14 cap 06/19/24 polyethylene glycoL 3350 [Miralax] 17 gm PO TID 30 Days #1 dispenser 06/19/24 Allergies Allergy/AdvReac Type Severity Reaction Status Date / Time cephalexin [From Keflex] Allergy Confusion, Verified 06/11/24 09:38 dizziness and syncope Review of Systems ROS Statement: Those systems with pertinent positive or pertinent negative responses have been documented in the HPI. ROS Other: All systems not noted in ROS Statement are negative. Constitutional: Reports: chills, weakness Eyes: Denies: vision change Respiratory: Denies: cough, dyspnea Cardiovascular: Reports: dyspnea on exertion, edema. Denies: chest pain, syncope Gastrointestinal: Denies: abdominal pain, nausea, vomiting, diarrhea Genitourinary: Denies: dysuria, hematuria Musculoskeletal: Denies: back pain Skin: Reports: change in color Neurological: Denies: headache, weakness Past Medical History Past Medical History: Atrial Fibrillation, Hypertension, Seizure Disorder Additional Past Medical History / Comment(s): bowel obstruction, cervical spinal stenosis, lung cancer with brain metastases, seizure 11/26/22. History of Any Multi-Drug Resistant Organisms: None Reported Past Surgical History: Back Surgery Additional Past Surgical History / Comment(s): Colostomy and reverse colostomy, L4-L5 fusion, brain surgery Past Anesthesia/Blood Transfusion Reactions: No Reported Reaction Past Psychological History: No Psychological Hx Reported Smoking Status: Current every day smoker Past Alcohol Use History: None Reported Past Drug Use History: Marijuana - Past Family History Mother Family Medical History: Cancer, Hypertension Additional Family Medical History / Comment(s): lung CA Father Family Medical History: Diabetes Mellitus General Exam Limitations: physical limitation General appearance: alert, in distress Head exam: Present: atraumatic, normocephalic Eye exam: Present: normal appearance. Absent: scleral icterus, conjunctival injection ENT exam: Present: mucous membranes dry Neck exam: Present: normal inspection Respiratory exam: Present: normal lung sounds bilaterally. Absent: respiratory distress, wheezes, rales, rhonchi, stridor, accessory muscle use Cardiovascular Exam: Present: tachycardia, irregular rhythm. Absent: systolic murmur, diastolic murmur, rubs, gallop GI/Abdominal exam: Present: soft. Absent: distended, tenderness, guarding, rebound, rigid, mass Extremities exam: Present: full ROM, tenderness, normal capillary refill, pedal edema, other (Patient does have erythema and warmth greater left leg than right. There is also edema and weeping) Back exam: Present: normal inspection. Absent: CVA tenderness (R), CVA tenderness (L), vertebral tenderness Neurological exam: Present: alert Skin exam: Present: warm, dry, erythema, vesicles Course Vital Signs 06/11/24 06/11/24 06/11/24 04:30 04:33 05:10 Temperature 98.4 F Pulse Rate 65 132 H 105 H Pulse Rate [ Pulse Oximetery ] Respiratory 22 22 Rate Blood Pressure 123/77 128/100 Blood Pressure [Right Arm Sitting] O2 Sat by Pulse 89 L 82 L 97 Oximetry 06/11/24 06/11/24 06/11/24 05:30 07:00 07:47 Temperature Pulse Rate 101 H 98 Pulse Rate [ Pulse Oximetery ] Respiratory 22 22 Rate Blood Pressure 128/91 124/88 Blood Pressure [Right Arm Sitting] O2 Sat by Pulse 97 95 99 Oximetry 06/11/24 06/11/24 06/11/24 11:10 12:30 14:30 Temperature 98.2 F 98.2 F Pulse Rate 107 H 92 85 Pulse Rate [ Pulse Oximetery ] Respiratory 18 18 18 Rate Blood Pressure 129/90 126/58 107/63 Blood Pressure [Right Arm Sitting] O2 Sat by Pulse 95 98 96 Oximetry 06/11/24 06/11/24 17:35 21:30 Temperature 98.6 F 98.2 F Pulse Rate 90 Pulse Rate [ 105 H Pulse Oximetery ] Respiratory 18 18 Rate Blood Pressure 104/88 Blood Pressure 111/73 [Right Arm Sitting] O2 Sat by Pulse 95 92 L Oximetry Medical Decision Making - Medical Decision Making Patient is 59-year-old man presenting with weakness and dizziness getting worse over a number of weeks to months. He does on the exam have atrial fibrillation with right at times up to the 120s though also down into the upper 80s and 90s. The patient also has lower extremity cellulitis. Patient started on antibiotics. Will be admitted and have consultations to cardiology and to infectious disease. The patient had chest x-ray that I interpreted as negative for acute infiltrate, pneumothorax, congestive heart failure Was pt. sent in by a medical professional or institution (ELVIN Lanier, PROTOTYPE MACHINE OPERATOR, urgent care, hospital, or skilled nursing...) When possible be specific @ -[No] Did you speak to anyone other than the patient for history (EMS, parent, family, police, friend...)? What history was obtained from this source @ -[The patient's sister gave much of the history Did you review nursing and triage notes (agree or disagree)? Why? @ -[I reviewed and agree with nursing and triage notes] Were old charts reviewed (outside hosp., previous admission, EMS record, old EKG, old radiological studies, urgent care reports/EKG's, skilled nursing records)? Report findings @ -[No old charts were reviewed] Differential Diagnosis (chest pain, altered mental status, abdominal pain women, abdominal pain men, vaginal bleeding, weakness, fever, dyspnea, syncope, headache, dizziness, GI bleed, back pain, seizure, CVA, palpatations, mental health, musculoskeletal)? @ -[Differential Altered Mental Status: Hypoglycemia, DKA, hypercapnia, ETOH, overdose, CO poisoning, trauma, myxedema coma, HTN encephalopathy, infection, encephalitis, psychosis, intercranial hemorrhage, hepatic encephalopathy, meningitis, CVA, this is not meant to be an all-inclusive list EKG interpreted by me (3pts min.). @ -[I interpreted as above] X-rays interpreted by me (1pt min.). @ -[I interpreted as above CT interpreted by me (1pt min.). @ -[None done] U/S interpreted by me (1pt. min.). @ -[None done] What testing was considered but not performed or refused? (CT, X-rays, U/S, labs)? Why? @ -[None] What meds were considered but not given or refused? Why? @ -[None] Did you discuss the management of the patient with other professionals (professionals i.e. ELVIN Lanier, PROTOTYPE MACHINE OPERATOR, lab, RT, psych nurse, social work nurse, employment evaluator/case manager, teacher, chief diversity officer, trimming caser)? Give summary @ -[No] Was smoking cessation discussed for >3mins.? @ -[No] Was critical care preformed (if so, how long)? @ -[No] Were there social determinants of health that impacted care today? How? (Homelessness, low income, unemployed, alcoholism, drug addiction, transportation, low edu. Level, literacy, decrease access to med. care, detention, rehab)? @ -[No] Was there de-escalation of care discussed even if they declined (Discuss DNR or withdrawal of care, Hospice)? DNR status @ -[No] What co-morbidities impacted this encounter? (DM, HTN, Smoking, COPD, CAD, Cancer, CVA, ARF, Chemo, Hep., AIDS, mental health diagnosis, sleep apnea, morbid obesity)? @ -[Cancer Was patient admitted / discharged? Hospital course, mention meds given and route, prescriptions, significant lab abnormalities, going to OR and other pertinent info. @ -[As above Undiagnosed new problem with uncertain prognosis? @ -[No] Drug Therapy requiring intensive monitoring for toxicity (Heparin, Nitro, Insulin, Cardizem)? @ -[No] Were any procedures done? @ -[No] Diagnosis/symptom? @ -[Acute altered mental status Acute cellulitis Acute, or Chronic, or Acute on Chronic? @ -Acute Uncomplicated (without systemic symptoms) or Complicated (systemic symptoms)? @ -[Complicated by mental status change Side effects of treatment? @ -[No] Exacerbation, Progression, or Severe Exacerbation? @ -[No] Poses a threat to life or bodily function? How? (Chest pain, [place], [place], pneumonia, PE, COPD, DKA, ARF, appy, cholecystitis, CVA, Diverticulitis, Homicidal, Suicidal, threat to staff... and all critical care pts) @ -[No] - Lab Data Result diagrams: 06/18/24 04:21 06/18/24 04:21 Lab Results 06/11/24 06/11/24 06/11/24 Range/Units 05:04 05:04 05:04 WBC 9.6 (3.8-10.6) k/uL RBC 3.99 L (4.30-5.90) m/uL Hgb 12.5 L (13.0-17.5) gm/dL Hct 38.0 L (39.0-53.0) % MCV 95.3 (80.0-100.0) fL MCH 31.3 (25.0-35.0) pg MCHC 32.9 (31.0-37.0) g/dL RDW 17.8 H (11.5-15.5) % Plt Count 209 (150-450) k/uL MPV 10.3 Neutrophils % 86 % Lymphocytes % 7 % Monocytes % 4 % Eosinophils % 1 % Basophils % 0 % Neutrophils # 8.3 H (1.3-7.7) k/uL Lymphocytes # 0.7 L (1.0-4.8) k/uL Monocytes # 0.4 (0-1.0) k/uL Eosinophils # 0.1 (0-0.7) k/uL Basophils # 0.0 (0-0.2) k/uL Poikilocytosis Slight Anisocytosis Slight Macrocytosis Slight PT 9.5 L (10.0-12.5) sec INR 0.8 (<1.2) APTT 19.0 L (22.0-30.0) sec Sodium 141 (137-145) mmol/L Potassium 3.5 (3.5-5.1) mmol/L Chloride 95 L (98-107) mmol/L Carbon Dioxide 28 (22-30) mmol/L Anion Gap 18 mmol/L BUN 68 H (9-20) mg/dL Creatinine 1.30 H (0.66-1.25) mg/dL Est GFR (CKD-EPI)AfAm 70 (>60 ml/min/1.73 sqM) Est GFR (CKD-EPI)NonAf 60 (>60 ml/min/1.73 sqM) Glucose 171 H (74-99) mg/dL Calcium 9.8 (8.4-10.2) mg/dL Total Bilirubin 0.7 (0.2-1.3) mg/dL AST 42 (17-59) U/L ALT 40 (4-49) U/L Alkaline Phosphatase 144 H (38-126) U/L Troponin I (0.000-0.034) ng/mL C-Reactive Protein 36.9 H (<1.0) mg/dL Total Protein 6.7 (6.3-8.2) g/dL Albumin 3.8 (3.5-5.0) g/dL Procalcitonin (0.02-0.50) ng/mL Urine Color Urine Appearance (Clear) Urine pH (5.0-8.0) Ur Specific Sparks (1.001-1.035) Urine Protein (Negative) Urine Glucose (UA) (Negative) Urine Ketones (Negative) Urine Blood (Negative) Urine Nitrite (Negative) Urine Bilirubin (Negative) Urine Urobilinogen (<2.0) mg/dL Ur Leukocyte Esterase (Negative) 06/11/24 06/11/24 06/11/24 Range/Units 05:04 05:04 05:08 WBC (3.8-10.6) k/uL RBC (4.30-5.90) m/uL Hgb (13.0-17.5) gm/dL Hct (39.0-53.0) % MCV (80.0-100.0) fL MCH (25.0-35.0) pg MCHC (31.0-37.0) g/dL RDW (11.5-15.5) % Plt Count (150-450) k/uL MPV Neutrophils % % Lymphocytes % % Monocytes % % Eosinophils % % Basophils % % Neutrophils # (1.3-7.7) k/uL Lymphocytes # (1.0-4.8) k/uL Monocytes # (0-1.0) k/uL Eosinophils # (0-0.7) k/uL Basophils # (0-0.2) k/uL Poikilocytosis Anisocytosis Macrocytosis PT (10.0-12.5) sec INR (<1.2) APTT (22.0-30.0) sec Sodium (137-145) mmol/L Potassium (3.5-5.1) mmol/L Chloride (98-107) mmol/L Carbon Dioxide (22-30) mmol/L Anion Gap mmol/L BUN (9-20) mg/dL Creatinine (0.66-1.25) mg/dL Est GFR (CKD-EPI)AfAm (>60 ml/min/1.73 sqM) Est GFR (CKD-EPI)NonAf (>60 ml/min/1.73 sqM) Glucose (74-99) mg/dL Calcium (8.4-10.2) mg/dL Total Bilirubin (0.2-1.3) mg/dL AST (17-59) U/L ALT (4-49) U/L Alkaline Phosphatase (38-126) U/L Troponin I 0.062 H* (0.000-0.034) ng/mL C-Reactive Protein (<1.0) mg/dL Total Protein (6.3-8.2) g/dL Albumin (3.5-5.0) g/dL Procalcitonin 0.86 H (0.02-0.50) ng/mL Urine Color Colorless Urine Appearance Clear (Clear) Urine pH 5.5 (5.0-8.0) Ur Specific Sparks 1.010 (1.001-1.035) Urine Protein Negative (Negative) Urine Glucose (UA) Negative (Negative) Urine Ketones Negative (Negative) Urine Blood Negative (Negative) Urine Nitrite Negative (Negative) Urine Bilirubin Negative (Negative) Urine Urobilinogen <2.0 (<2.0) mg/dL Ur Leukocyte Esterase Negative (Negative) Disposition Clinical Impression: Cellulitis, Atrial fibrillation Disposition: ADMITTED IP TO THIS HOSP Condition: Poor
[2024-06-11 07:01] LABS: Anion Gap 18 mmol/L; Sodium 141 mmol/L (137-145)
[2024-06-11 07:02] LABS: Potassium 3.5 mmol/L (3.5-5.1)
[2024-06-11] MEDS: PIPERACILLIN-TAZOBACTAM 3.375 GM in SODIUM CHLORIDE 0.9% 100 ML IVPB STA (07:21)
[2024-06-11] MEDS: SODIUM CHLORIDE 0.9% 1,000 ML IV ONE (07:58)
[2024-06-11] MEDS: VANCOMYCIN 1,250 MG in SODIUM CHLORIDE 0.9% 250 ML IVPB STA (07:59)
[2024-06-11] MEDS: AMIODARONE 200 MG TAB PO SCH (08:20)
[2024-06-11] MEDS: FUROSEMIDE 10 MG/ML 2 ML VIAL IV SCH (08:20)
--- NOTE | 2024-06-11 11:30 | CA ---
Transthoracic Echo Report Name: Royce Riddle Age: 59 Gender: M : 1965 Exam Date: 06/11/2024 09:07 Exam Location: [facility] Ht (in): Wt (lb): Ordering Physician: Araceli Trent Attending/Referring Phys: Business Ethics Professor Annette Bradshaw RDCS Procedure CPT: Indications: pericardial eff Cardiac Hx: Limited Study Technical Quality: Fair Contrast 1: Total Dose (mL): Contrast 2: Total Dose (mL): MEASUREMENTS (Male / Female) Normal Values 2D ECHO LV Diastolic Diameter PLAX 4.0 cm 4.2 - 5.9 / 3.9 - 5.3 cm LV Systolic Diameter PLAX 2.5 cm IVS Diastolic Thickness 1.6 cm 0.6 - 1.0 / 0.6 - 0.9 cm LVPW Diastolic Thickness 1.7 cm 0.6 - 1.0 / 0.6 - 0.9 cm LV Relative Wall Thickness 0.8 RV Internal Dim ED PLAX 3.3 cm LA Systolic Diameter LX 4.3 cm 3.0 - 4.0 / 2.7 - 3.8 cm M-MODE Aortic Root Diameter MM 4.0 cm LA Systolic Diameter MM 3.3 cm LA Ao Ratio MM 0.8 AV Cusp Separation MM 2.3 cm FINDINGS Left Ventricle Left ventricular ejection fraction is estimated at 55-60%. Moderately increased septal wall thickness. Left ventricular cavity size normal. Normal left ventricular systolic function with no obvious regional wall motion abnormalities. Right Ventricle Right Atrium Mild right atrial dilatation. Left Atrium Moderate left atrial dilatation. Mitral Valve Aortic Valve Tricuspid Valve Pulmonic Valve Pericardium Small pericardial effusion. Pericardial effusion located anteriorly. Aorta Mildly dilated aortic annulus. CONCLUSIONS Loculated anterior pericardial effusion noted Normal LV function Previewed by: Dr. Ruiz Rutledge MD (Electronically Signed) Final Date: 11 June 2024 11:30
[2024-06-11] MEDS: SODIUM CHLORIDE 0.9% 250 ML IV ONE (13:10)
--- NOTE | 2024-06-11 14:37 | P.CRDCN ---
History of Present Illness Consult reason: atrial fibrillation (A-fib with RVR) History of present illness: HISTORY OF PRESENT ILLNESS: This is a 59-year-old male with medical history significant for seizure disorder, chronic paroxysmal atrial fibrillation not on anticoagulant, hypertension, diabetes, and history of lung cancer with brain metastasis. Patient also has previous history of brain surgery. Patient's A-fib is managed by his PCP. Patient is a poor historian and able to answer yes or no questions but not able to give open-ended answers. Patient's sister is here with him and provided most of the history. We have been asked to see the patient in consultation for A-fib with RVR. Patient was examined at the bedside in the emergency room. Patient came to the hospital because of dizziness and ligh theadedness which has been going on for some time. Patient also complains of redness and swelling to bilateral lower extremities as well as an increase in weeping of drainage from the legs currently on ampicillin and Lasix. Patient has been feeling progressively worsened over the last few months since he had a fall. Sister states patient still currently smoking heavily. Patient denies chest pain and shortness of breath. DIAGNOSTICS: - EKG reveals A-fib with RVR, RBBB - Chest xray shows no acute findings - Laboratory data: Hemoglobin 12.5. PT 9.5. INR 0.8. PTT 19. BUN 69, Creatinine 1.3. Troponin 0.062. CRP 36.9. Procalcitonin 0.86 - Current home cardiac medications include Cardizem to 40 mg p.o. daily, Lasix 40 mg p.o. daily, aspirin 81 mg p.o. daily Most recent echocardiogram yesterday showed small anterior pericardial effusion, normal LV function REVIEW OF SYSTEMS: At the time of my exam: CONSTITUTIONAL: Denies fever or chills. HEENT: Denies blurred vision, vision changes, or eye pain. Denies hemoptysis CARDIOVASCULAR: Denies chest pain. Denies orthopnea. Denies PND. Denies palpitations RESPIRATORY: Endorses shortness of breath, but states improved. GASTROINTESTINAL: Denies abdominal pain. Denies nausea or vomiting. HEMATOLOGIC: Denies bleeding disorders. GENITOURINARY: Denies any blood in urine. SKIN: Denies pruritus. Denies rash. PHYSICAL EXAM: VITAL SIGNS: Reviewed. GENERAL: Well-developed in no acute distress. HEENT: Head is normocephalic. Pupils are equal, round. Sclerae anicteric. Mucous membranes of the mouth are moist. Neck supple. No JVD or thyromegaly LUNGS: Respirations even and unlabored. Some crackles bilaterally. HEART: Irregular rate and rhythm. S1 and S2 heard. ABDOMEN: Soft. Nontender to palpation. EXTREMITIES: Normal range of motion. No clubbing or cyanosis. Peripheral pulses intact. Cellulitis and edema present in lower extremities. NEUROLOGIC: Arousable, slow to respond ASSESSMENT: A-fib with RVR Hypertension, currently normotensive likely due to A-fib Cellulitis Diabetes History of lung cancer with metastasis to the brain PLAN: Started amiodarone 400 mg PO twice daily Started Lasix IV 20 mg every 12 hours ID on board Wound care on board Heme-onc on board Further recommendations to follow based upon clinical course Thank you kindly for this consultation. Past Medical History Past Medical History: Atrial Fibrillation, Hypertension, Seizure Disorder Additional Past Medical History / Comment(s): bowel obstruction, cervical spinal stenosis, lung cancer with brain metastases, seizure 11/26/22. History of Any Multi-Drug Resistant Organisms: None Reported Past Surgical History: Back Surgery Additional Past Surgical History / Comment(s): Colostomy and reverse colostomy, L4-L5 fusion, brain surgery Past Anesthesia/Blood Transfusion Reactions: No Reported Reaction Past Psychological History: No Psychological Hx Reported Smoking Status: Current every day smoker Past Alcohol Use History: None Reported Past Drug Use History: Marijuana - Past Family History Mother Family Medical History: Cancer, Hypertension Additional Family Medical History / Comment(s): lung CA Father Family Medical History: Diabetes Mellitus Medications and Allergies Home Medications Medication Instructions Recorded Confirmed Type Metoprolol Succinate (ER) [Toprol 100 mg PO BID #60 tab 04/25/23 06/11/24 Rx XL] Albuterol Inhaler [Ventolin Hfa 1 puff INHALATION RT-QID PRN 11/07/23 06/11/24 History Inhaler] buprenorphine HCL [Subutex] 8 mg PO BID 11/07/23 06/11/24 History dilTIAZem HCL [Cardizem CD] 240 mg PO DAILY 11/07/23 06/11/24 History Aspirin 81 mg PO DAILY 04/08/24 06/11/24 History levETIRAcetam [Keppra] 1,000 mg PO BID 04/08/24 06/11/24 History Amoxic-Pot Clav 875-125Mg 1 tab PO BID 5 Days #10 tab 04/12/24 06/11/24 Rx [Augmentin 875-125] Furosemide [Lasix] 40 mg PO DAILY 06/11/24 06/11/24 History Mupirocin 2% Oint [Bactroban 2% 1 applic TOPICAL BID 06/11/24 06/11/24 History Oint] dexAMETHasone 2 mg PO DAILY 06/11/24 06/11/24 History Allergies Allergy/AdvReac Type Severity Reaction Status Date / Time cephalexin [From Keflex] Allergy Confusion, Verified 06/11/24 09:38 dizziness and syncope Physical Exam Vitals: Vital Signs Temp Pulse Resp BP Pulse Ox 06/11/24 11:10 107 H 18 129/90 95 06/11/24 07:47 99 06/11/24 07:00 98 22 124/88 95 06/11/24 05:30 101 H 22 128/91 97 06/11/24 05:10 105 H 22 128/100 97 06/11/24 04:33 132 H 82 L 06/11/24 04:30 98.4 F 65 22 123/77 89 L Intake and Output 06/10/24 06/11/24 06/11/24 22:59 06:59 14:59 Output Total 550 Balance -550 Output: Urine 550 Other: Weight 61.235 kg Results 06/11/24 05:04 06/11/24 05:04 Cardiac Enzymes 06/11/24 06/11/24 Range/Units 05:04 05:04 AST 42 (17-59) U/L Troponin I 0.062 H* (0.000-0.034) ng/mL Coagulation 06/11/24 Range/Units 05:04 PT 9.5 L (10.0-12.5) sec APTT 19.0 L (22.0-30.0) sec CBC 06/11/24 Range/Units 05:04 WBC 9.6 (3.8-10.6) k/uL RBC 3.99 L (4.30-5.90) m/uL Hgb 12.5 L (13.0-17.5) gm/dL Hct 38.0 L (39.0-53.0) % Plt Count 209 (150-450) k/uL Comprehensive Metabolic Panel 06/11/24 Range/Units 05:04 Sodium 141 (137-145) mmol/L Potassium 3.5 (3.5-5.1) mmol/L Chloride 95 L (98-107) mmol/L Carbon Dioxide 28 (22-30) mmol/L BUN 68 H (9-20) mg/dL Creatinine 1.30 H (0.66-1.25) mg/dL Glucose 171 H (74-99) mg/dL Calcium 9.8 (8.4-10.2) mg/dL AST 42 (17-59) U/L ALT 40 (4-49) U/L Alkaline Phosphatase 144 H (38-126) U/L Total Protein 6.7 (6.3-8.2) g/dL Albumin 3.8 (3.5-5.0) g/dL Current Medications Generic Name Dose Route Start Last Admin Trade Name Freq PRN Reason Stop Dose Admin Amiodarone HCl 400 mg 06/11/24 09:00 06/11/24 08:20 Amiodarone 200 Mg Tab PO 400 mg BID CLARA Administration Furosemide 20 mg 06/11/24 09:00 06/11/24 08:20 Furosemide 10 Mg/Ml 2 Ml Vial IV 20 mg Q12HR CLARA Administration Vancomycin HCl 1,250 mg/ 250 mls @ 125 mls/hr 06/12/24 00:00 Sodium Chloride IVPB Q16H CLARA Sodium Chloride 1,000 mls @ 100 mls/hr 06/11/24 07:16 06/11/24 07:58 Saline 0.9% IV 06/11/24 17:15 100 mls/hr .Q10H ONE Administration Intake and Output 06/10/24 06/11/24 06/11/24 22:59 06:59 14:59 Output Total 550 Balance -550 Output: Urine 550 Other: Weight 61.235 kg 06/11/24 05:04 06/11/24 05:04
--- NOTE | 2024-06-11 15:08 | CT ---
EXAMINATION TYPE: CT lower extremity LT w con CT DLP: 207.1 mGycm, Automated exposure control for dose reduction was used. DATE OF EXAM: 06/11/2024 2:30 PM COMPARISON: . None CLINICAL INDICATION: Male, 59 years old with history of cellulitis/wounds, r/o osteomyelitis; PHH, ce llulitis r/o myelitis TECHNIQUE: Axial images were obtained of the CT lower extremity LT w con, Additional coronal and sagi ttal reformatted images and soft tissue and bone window were obtained for review. 3-D reconstruction was created on a separate workstation. Contrast used:100 ml mL of Isovue 300 with IV Contrast, (None if empty) Oral contrast used: (None if empty) FINDINGS: There is no evidence of fracture, subluxation, or dislocation. No significant soft tissue swelling or joint effusion is identified. No focal muscular atrophy or edema is identified. No radiop aque foreign body identified. No evidence for osseous erosion. No organizing fluid collection.. Diffuse edema throughout the lower externally. Couple areas of focal thickening in the skin possibly representing blisters. Arterial vas culature is patent. IMPRESSION: Moderate to severe subcutaneous edema in the lower extremity without evidence for an organizing fluid collection. No evidence for osseous erosion.
--- NOTE | 2024-06-11 16:02 | P.CONS ---
History of Present Illness - Reason for Consult Consult date: 06/11/24 hx SCLC Requesting physician: Bobby Ritter - Chief Complaint dizziness - History of Present Illness Mr. Riddle is a 57-year-old gentleman with a past medical history significant for mixed histology metastatic lung cancer (adenocarcinoma, small cell carcinoma) status post resection of bilateral parietal lobe metastases on 05/06/2022 and postoperative whole brain radiation therapy with 57 Gordon in 8 fractions completed on 06/07/2022 followed by 4 cycles of carboplatin/etoposide/atezolizumab from 07/07/2022 through 09/08/2022. He completed consolidative radiation therapy to the thorax with 40 Gy in 15 fractions. He was then started on maintenance atezolizumab on 11/21/2022 and has currently completed 14 cycles, most recently on 10/13/2023. Repeat brain MRI on 08/28/2023 noted new anterior left temporal lobe lesion measuring 1.4 cm and he received 3 fractions of SRS with 27 Gordon from 09/04/2023 through 09/06/2023. He has continued on Tecentriq with stable disease. Completed cycle 19 on 05/03/24, he missed his last treatment due to repeat hospitalizations. He had brain MRI during last admission, which is not within EMR due to compromised EMR at that time. MRI was reviewed and compared at that visit to previous imaging and lesions appeared stable, he was referred back to rad onc to further evaluate. Patient presented to the emergency room with dizziness and lightheadedness and was noted to be in A-fib with RVR. Cardiology was consulted. HPI is limited to due to mentation. Pt is very somnolent at todays visit, and will open eyes to tactile stimuli but easily falls asleep. Labs reviewed, wbc 9.6, hgb 12.5, plt 209. Creatinine 1.30, GFR 60. Trop elevated at 0.062. UA negative. CXR showing no acute findings. Pt has sever erythema, blistering, and wounds on BLE, left > right. He has been started on Vancomycin. Blood culture pending. ID consulted. Pt afebrile Review of Systems 10 point ROS is negative except as stated in the HPI Past Medical History Past Medical History: Atrial Fibrillation, Hypertension, Seizure Disorder Additional Past Medical History / Comment(s): bowel obstruction, cervical spinal stenosis, lung cancer with brain metastases, seizure 11/26/22. History of Any Multi-Drug Resistant Organisms: None Reported Past Surgical History: Back Surgery Additional Past Surgical History / Comment(s): Colostomy and reverse colostomy, L4-L5 fusion, brain surgery Past Anesthesia/Blood Transfusion Reactions: No Reported Reaction Past Psychological History: No Psychological Hx Reported Smoking Status: Current every day smoker Past Alcohol Use History: None Reported Past Drug Use History: Marijuana - Past Family History Mother Family Medical History: Cancer, Hypertension Additional Family Medical History / Comment(s): lung CA Father Family Medical History: Diabetes Mellitus Medications and Allergies Home Medications Medication Instructions Recorded Confirmed Type Metoprolol Succinate (ER) [Toprol 100 mg PO BID #60 tab 04/25/23 06/11/24 Rx XL] Albuterol Inhaler [Ventolin Hfa 1 puff INHALATION RT-QID PRN 11/07/23 06/11/24 History Inhaler] buprenorphine HCL [Subutex] 8 mg PO BID 11/07/23 06/11/24 History dilTIAZem HCL [Cardizem CD] 240 mg PO DAILY 11/07/23 06/11/24 History Aspirin 81 mg PO DAILY 04/08/24 06/11/24 History levETIRAcetam [Keppra] 1,000 mg PO BID 04/08/24 06/11/24 History Amoxic-Pot Clav 875-125Mg 1 tab PO BID 5 Days #10 tab 04/12/24 06/11/24 Rx [Augmentin 875-125] Furosemide [Lasix] 40 mg PO DAILY 06/11/24 06/11/24 History Mupirocin 2% Oint [Bactroban 2% 1 applic TOPICAL BID 06/11/24 06/11/24 History Oint] dexAMETHasone 2 mg PO DAILY 06/11/24 06/11/24 History Allergies Allergy/AdvReac Type Severity Reaction Status Date / Time cephalexin [From Keflex] Allergy Confusion, Verified 06/11/24 09:38 dizziness and syncope Physical Exam Vitals: Vital Signs Temp Pulse Resp BP Pulse Ox 06/11/24 07:47 99 06/11/24 07:00 98 22 124/88 95 06/11/24 05:30 101 H 22 128/91 97 06/11/24 05:10 105 H 22 128/100 97 06/11/24 04:33 132 H 82 L 06/11/24 04:30 98.4 F 65 22 123/77 89 L Intake and Output 06/10/24 06/11/24 06/11/24 22:59 06:59 14:59 Other: Weight 61.235 kg - Constitutional General appearance: no acute distress, thin - Respiratory Respiratory: bilateral: diminished - Cardiovascular tachycardic - Gastrointestinal General gastrointestinal: soft - Integumentary Integumentary: no cyanotic, no jaundiced - Musculoskeletal Musculoskeletal: generalized weakness - Psychiatric somnolent Results CBC & Chem 7: 06/11/24 05:04 06/11/24 05:04 Labs: Abnormal Lab Results - Last 24 Hours (Table) 06/11/24 06/11/24 06/11/24 Range/Units 05:04 05:04 05:04 RBC 3.99 L (4.30-5.90) m/uL Hgb 12.5 L (13.0-17.5) gm/dL Hct 38.0 L (39.0-53.0) % RDW 17.8 H (11.5-15.5) % Neutrophils # 8.3 H (1.3-7.7) k/uL Lymphocytes # 0.7 L (1.0-4.8) k/uL PT 9.5 L (10.0-12.5) sec APTT 19.0 L (22.0-30.0) sec Chloride 95 L (98-107) mmol/L BUN 68 H (9-20) mg/dL Creatinine 1.30 H (0.66-1.25) mg/dL Glucose 171 H (74-99) mg/dL Alkaline Phosphatase 144 H (38-126) U/L Troponin I (0.000-0.034) ng/mL C-Reactive Protein 36.9 H (<1.0) mg/dL 06/11/24 Range/Units 05:04 RBC (4.30-5.90) m/uL Hgb (13.0-17.5) gm/dL Hct (39.0-53.0) % RDW (11.5-15.5) % Neutrophils # (1.3-7.7) k/uL Lymphocytes # (1.0-4.8) k/uL PT (10.0-12.5) sec APTT (22.0-30.0) sec Chloride (98-107) mmol/L BUN (9-20) mg/dL Creatinine (0.66-1.25) mg/dL Glucose (74-99) mg/dL Alkaline Phosphatase (38-126) U/L Troponin I 0.062 H* (0.000-0.034) ng/mL C-Reactive Protein (<1.0) mg/dL Chest x-ray: report reviewed Assessment and Plan (1) Atrial fibrillation Current Visit: Yes Status: Acute Code(s): I48.91 - UNSPECIFIED ATRIAL FIBRILLATION SNOMED Code(s): 28466760 (2) Cellulitis Current Visit: Yes Status: Acute Code(s): L03.90 - CELLULITIS, UNSPECIFIED SNOMED Code(s): 174942946 (3) Altered mental status Current Visit: No Status: Acute Priority: High Code(s): R41.82 - ALTERED MENTAL STATUS, UNSPECIFIED SNOMED Code(s): 619240331 (4) Lung cancer Current Visit: No Status: Acute Priority: High Code(s): C34.90 - MALIGNANT NEOPLASM OF UNSP PART OF UNSP BRONCHUS OR LUNG SNOMED Code(s): 968397473 Plan: Afib RVR: Presented with dizziness, found to a-fib RVR -Echo obtained -Amiodarone started -Cardiology managing Cellulitis: -BLE cellulitis/wounds noted on exam. Right greater than left, with large wound to dorsal aspect left foot -Vanco started -ID and wound care consulted -CT left leg w/ contrast ordered to r/o deep tissue infection/osteomyelitis Small cell lug cancer: -Oncology history and plan as dictated in HPI -Has continued on Tecentriq with stable disease -Plan is to continue on Tecentriq, however, treatment has been delayed due to recent hospitalizations -Clinic f/u scheduled on 06/14/24 attests:I have seen and examined pt, performed H&P, developed impression and plan of care. Discussed with dictator. Agree with documentation, dictated as a scribe.
[2024-06-11] MEDS: levETIRAcetam 500 MG TAB PO SCH (22:09)
[2024-06-11] MEDS: HYDROcodone/APAP 5-325MG 1 EACH TAB PO PRN (22:09)
--- NOTE | 2024-06-11 23:13 | HP ---
HISTORY AND PHYSICAL CHIEF COMPLAINT: Rapid heart beating and shortness of breath. HISTORY OF PRESENT ILLNESS: Another recent admission for this 59-year-old gentleman who has metastatic carcinoma of the lung to the brain. He came in the emergency room because of rapid heart beating and shortness of breath. REVIEW OF SYSTEMS: Cannot be obtained. The patient is drowsy at this time. He has apparently not had any diaphoresis or chest pain. PAST MEDICAL HISTORY, FAMILY HISTORY PERSONAL SOCIAL HISTORY: Unchanged from his recent discharge. PHYSICAL EXAMINATION: HEART: He is in atrial fibrillation with a rapid ventricular response of around 140 beats per minute. GENERAL: He is pale, chronically ill and cachectic. CHEST: Demonstrates breath sounds bilaterally. CARDIAC: Demonstrates tachycardia. ABDOMEN: Soft. No masses. EXTREMITIES: Reveal poor muscle bulk. DIAGNOSES: He is admitted to the hospital with diagnoses: 1. Atrial fibrillation with rapid ventricular response. 2. Carcinoma along with metastases to brain. 3. Dehydration. 4. Malnutrition. PLAN: 1. Bed rest. 2. IV fluids. 3. Consult with Cardiology and Oncology. MMCAYDENL / NAYE: [id number] /
[2024-06-11] MEDS: VANCOMYCIN 1,250 MG in SODIUM CHLORIDE 0.9% 250 ML IVPB SCH (23:36)
--- NOTE | 2024-06-12 08:01 | P.CONS ---
History of Present Illness - Reason for Consult Consult date: 06/11/24 Lower extremity cellulitis Requesting physician: Bobby Ritter - Chief Complaint Lightheaded and dizzy x days - History of Present Illness Patient is a 59-year-old male with a past medical history significant for hypertension seizure disorder atrial fibrillation metastatic lung cancer with mets to the brain patient has been brought into the hospital complaining of feeling dizzy and lightheaded with the symptoms progressive getting worse apparently the patient did have a fall also noticed to have increasing pubic edema swelling redness of bilateral lower extremity that has prompted this consultation on presentation to the hospital patient was afebrile and no fever have been recorded subsequently patient was not tachycardic hypotensive mildly hypoxic currently with 2 L nasal cannula oxygen he did have white count of 9.6 BUN and creatinine mild elevated with a creatinine 1.30 liver enzymes are normal urine has been negative chest x-ray no acute changes l, patient was started on vancomycin infectious disease was consulted for further management of antibiotic therapy, most information has been obtained from review the chart 12 system the patient is currently lethargic and did not provide any history Review of Systems Positive points has been mentioned in HPI complete review could not be obtained because of his underlying mental status Past Medical History Past Medical History: Atrial Fibrillation, Hypertension, Seizure Disorder Additional Past Medical History / Comment(s): bowel obstruction, cervical spinal stenosis, lung cancer with brain metastases, seizure 11/26/22. History of Any Multi-Drug Resistant Organisms: None Reported Past Surgical History: Back Surgery Additional Past Surgical History / Comment(s): Colostomy and reverse colostomy, L4-L5 fusion, brain surgery Past Anesthesia/Blood Transfusion Reactions: No Reported Reaction Past Psychological History: No Psychological Hx Reported Smoking Status: Current every day smoker Past Alcohol Use History: None Reported Past Drug Use History: Marijuana - Past Family History Mother Family Medical History: Cancer, Hypertension Additional Family Medical History / Comment(s): lung CA Father Family Medical History: Diabetes Mellitus Medications and Allergies Home Medications Medication Instructions Recorded Confirmed Type Metoprolol Succinate (ER) [Toprol 100 mg PO BID #60 tab 04/25/23 06/11/24 Rx XL] Albuterol Inhaler [Ventolin Hfa 1 puff INHALATION RT-QID PRN 11/07/23 06/11/24 History Inhaler] buprenorphine HCL [Subutex] 8 mg PO BID 11/07/23 06/11/24 History dilTIAZem HCL [Cardizem CD] 240 mg PO DAILY 11/07/23 06/11/24 History Aspirin 81 mg PO DAILY 04/08/24 06/11/24 History levETIRAcetam [Keppra] 1,000 mg PO BID 04/08/24 06/11/24 History Amoxic-Pot Clav 875-125Mg 1 tab PO BID 5 Days #10 tab 04/12/24 06/11/24 Rx [Augmentin 875-125] Furosemide [Lasix] 40 mg PO DAILY 06/11/24 06/11/24 History Mupirocin 2% Oint [Bactroban 2% 1 applic TOPICAL BID 06/11/24 06/11/24 History Oint] dexAMETHasone 2 mg PO DAILY 06/11/24 06/11/24 History Allergies Allergy/AdvReac Type Severity Reaction Status Date / Time cephalexin [From Keflex] Allergy Confusion, Verified 06/11/24 09:38 dizziness and syncope Physical Exam Vitals: Vital Signs Temp Pulse Resp BP Pulse Ox 06/11/24 11:10 107 H 18 129/90 95 06/11/24 07:47 99 06/11/24 07:00 98 22 124/88 95 06/11/24 05:30 101 H 22 128/91 97 06/11/24 05:10 105 H 22 128/100 97 06/11/24 04:33 132 H 82 L 06/11/24 04:30 98.4 F 65 22 123/77 89 L Intake and Output 06/10/24 06/11/24 06/11/24 22:59 06:59 14:59 Other: Weight 61.235 kg GENERAL DESCRIPTION: Middle-aged male lying in bed, no distress. No tachypnea or accessory muscle of respiration use. HEENT: Shows Pallor , no scleral icterus. Oral mucous membrane is dry. No pharyngeal erythema or thrush NECK: Trachea central, no thyromegaly. LUNGS: Unlabored breathing. Decreased breath sound the base. HEART: S1, S2, regular rate and rhythm. No loud murmur ABDOMEN: Soft, no tenderness , guarding or rigidity, no organomegaly EXTREMITIES: Bilateral lower extremity with diffuse swelling redness slightly warm to touch SKIN: No rash, no masses palpable. NEUROLOGICAL: The patient is lethargic orientation cannot be determined Results CBC & Chem 7: 06/11/24 05:04 06/11/24 05:04 Labs: Abnormal Lab Results - Last 24 Hours (Table) 06/11/24 06/11/24 06/11/24 Range/Units 05:04 05:04 05:04 RBC 3.99 L (4.30-5.90) m/uL Hgb 12.5 L (13.0-17.5) gm/dL Hct 38.0 L (39.0-53.0) % RDW 17.8 H (11.5-15.5) % Neutrophils # 8.3 H (1.3-7.7) k/uL Lymphocytes # 0.7 L (1.0-4.8) k/uL PT 9.5 L (10.0-12.5) sec APTT 19.0 L (22.0-30.0) sec Chloride 95 L (98-107) mmol/L BUN 68 H (9-20) mg/dL Creatinine 1.30 H (0.66-1.25) mg/dL Glucose 171 H (74-99) mg/dL Alkaline Phosphatase 144 H (38-126) U/L Troponin I (0.000-0.034) ng/mL C-Reactive Protein 36.9 H (<1.0) mg/dL 06/11/24 Range/Units 05:04 RBC (4.30-5.90) m/uL Hgb (13.0-17.5) gm/dL Hct (39.0-53.0) % RDW (11.5-15.5) % Neutrophils # (1.3-7.7) k/uL Lymphocytes # (1.0-4.8) k/uL PT (10.0-12.5) sec APTT (22.0-30.0) sec Chloride (98-107) mmol/L BUN (9-20) mg/dL Creatinine (0.66-1.25) mg/dL Glucose (74-99) mg/dL Alkaline Phosphatase (38-126) U/L Troponin I 0.062 H* (0.000-0.034) ng/mL C-Reactive Protein (<1.0) mg/dL Assessment and Plan (1) Bilateral lower leg cellulitis Current Visit: Yes Status: Acute Code(s): L03.116 - CELLULITIS OF LEFT LOWER LIMB; L03.115 - CELLULITIS OF RIGHT LOWER LIMB SNOMED Code(s): 769109033 (2) Allergy to cephalosporin Current Visit: Yes Status: Acute Code(s): Z88.1 - ALLERGY STATUS TO OTHER ANTIBIOTIC AGENTS SNOMED Code(s): 026660205 Plan: 1patient presented to hospital with lightheaded dizziness and apparently the patient did have a fall at home did have evidence of bilateral lower extremity swelling redness concerning for cellulitis likely from gram-positive skin pao patient not running any fever. 2cephalexin allergy that will limit the number of antibiotics safe to use. 3vancomycin pharmacy to dose target trough of 15 while watching kidney function and Vanco trough closely. We will follow on clinical condition and cultures to further adjust medication if needed Thank you for this consultation we will follow the patient along with you Dictation was produced using [employer] dictation software. please excuse any grammatical, word or spelling errors. Time with Patient: Greater than 30
[2024-06-12 09:29] LABS: African American GFR (CKD) >90 (>60 ml/min/1.73 sqM); Non-African American GFR(CKD) >90 (>60 ml/min/1.73 sqM)
--- NOTE | 2024-06-12 10:58 | P.CONS ---
History of Present Illness - Reason for Consult Consult date: 06/12/24 wound care - History of Present Illness This is a 59-year-old patient with past medical history significant for Diabetes, hypertension and atrial fibrillation with static lung cancer. Patient developed bilateral edema and cellulitis. Had increased weakness that prompted him to go to the emergency room. Patient has a open ulceration to the dorsal foot blistering noted to bilateral lower extremities with redness and edema. Review Of Systems: Constitutional: No fever, no chills, no night sweats. No weight change. No w eakness, fatigue or lethargy. No daytime sleepiness. Integumentary:reports wounds, no lesions. No rash or pruritus. No unusual bruising. No change in hair or nails. Physical exam: General Appearance: Alert, cooperative, no distress, appears stated age. Skin: See HPI all other Skin color, texture, tugor normal, no rashes or lesions. Neurologic: Alert oriented x3 Assessment: 1. Nonhealing ulceration with fat layer exposure left foot 2. Diabetic foot ulcer 3. Cellulitis bilateral lower extremities Plan: 1.Bilateral lower extremities: Apply honey alginate to open ulcerations. Zinc barrier cream to periwound. Cover with gauze rolled gauze secure with tape. Wrap with Fernandez wrap Thank you for the consultation any questions please contact the wound care center DNP note has been reviewed and discussed with Dr. Arauz and the impression and plan of care has been directed as dictated. Past Medical History Past Medical History: Atrial Fibrillation, Hypertension, Seizure Disorder Additional Past Medical History / Comment(s): bowel obstruction, cervical spinal stenosis, lung cancer with brain metastases, seizure 11/26/22. History of Any Multi-Drug Resistant Organisms: None Reported Past Surgical History: Back Surgery Additional Past Surgical History / Comment(s): Colostomy and reverse colostomy, L4-L5 fusion, brain surgery Past Anesthesia/Blood Transfusion Reactions: No Reported Reaction Past Psychological History: No Psychological Hx Reported Smoking Status: Current every day smoker Past Alcohol Use History: None Reported Past Drug Use History: Marijuana - Past Family History Mother Family Medical History: Cancer, Hypertension Additional Family Medical History / Comment(s): lung CA Father Family Medical History: Diabetes Mellitus Medications and Allergies Home Medications Medication Instructions Recorded Confirmed Type Metoprolol Succinate (ER) [Toprol 100 mg PO BID #60 tab 04/25/23 06/11/24 Rx XL] Albuterol Inhaler [Ventolin Hfa 1 puff INHALATION RT-QID PRN 11/07/23 06/11/24 History Inhaler] buprenorphine HCL [Subutex] 8 mg PO BID 11/07/23 06/11/24 History dilTIAZem HCL [Cardizem CD] 240 mg PO DAILY 11/07/23 06/11/24 History Aspirin 81 mg PO DAILY 04/08/24 06/11/24 History levETIRAcetam [Keppra] 1,000 mg PO BID 04/08/24 06/11/24 History Amoxic-Pot Clav 875-125Mg 1 tab PO BID 5 Days #10 tab 04/12/24 06/11/24 Rx [Augmentin 875-125] Furosemide [Lasix] 40 mg PO DAILY 06/11/24 06/11/24 History Mupirocin 2% Oint [Bactroban 2% 1 applic TOPICAL BID 06/11/24 06/11/24 History Oint] dexAMETHasone 2 mg PO DAILY 06/11/24 06/11/24 History Allergies Allergy/AdvReac Type Severity Reaction Status Date / Time cephalexin [From Keflex] Allergy Confusion, Verified 06/11/24 09:38 dizziness and syncope Physical Exam Vitals: Vital Signs Temp Pulse Pulse Resp BP BP Pulse Ox 06/12/24 08:30 118 H 18 115/75 97 06/12/24 03:16 98.7 F 106 H 18 104/73 97 06/12/24 00:00 98.2 F 96 20 99/67 92 L 06/11/24 21:37 98.0 F 89 18 100/78 100 06/11/24 21:30 98.2 F 105 H 18 111/73 92 L 06/11/24 17:35 98.6 F 90 18 104/88 95 06/11/24 14:30 98.2 F 85 18 107/63 96 06/11/24 12:30 98.2 F 92 18 126/58 98 06/11/24 11:10 107 H 18 129/90 95 Intake and Output 06/11/24 06/12/24 06/12/24 22:59 06:59 14:59 Intake Total 472 Output Total 1300 Balance -1300 472 Intake: Oral 472 Output: Urine 1300 Other: Voiding Method External Catheter External Catheter External Catheter Weight 61.235 kg Results CBC & Chem 7: 06/11/24 05:04 06/12/24 08:33 Labs: Abnormal Lab Results - Last 24 Hours (Table) 06/11/24 Range/Units 05:04 Procalcitonin 0.86 H (0.02-0.50) ng/mL Assessment and Plan (1) Non-pressure chronic ulcer of other part of left foot with fat layer exposed Current Visit: Yes Status: Acute Code(s): L97.522 - NON-PRS CHRONIC ULCER OTH PRT LEFT FOOT W FAT LAYER EXPOSED SNOMED Code(s): 20790056507043939 (2) Type 2 diabetes mellitus with foot ulcer Current Visit: Yes Status: Acute Code(s): E11.621 - TYPE 2 DIABETES MELLITUS WITH FOOT ULCER; L97.509 - NON-PRESSURE CHRONIC ULCER OTH PRT UNSP FOOT W UNSP SEVERITY SNOMED Code(s): 6226840498723 (3) Bilateral lower leg cellulitis Current Visit: Yes Status: Acute Code(s): L03.116 - CELLULITIS OF LEFT LOWER LIMB; L03.115 - CELLULITIS OF RIGHT LOWER LIMB SNOMED Code(s): 612611983
[2024-06-12] MEDS: ASPIRIN 81 MG PO SCH (11:25)
[2024-06-12] MEDS: DILTIAZEM CD 240 MG CAP.ER.24H PO SCH (11:26)
[2024-06-12] MEDS: METOPROLOL SUCCINATE (ER) 100 MG TAB.ER.24H PO SCH (11:26)
[2024-06-12] MEDS: ZINC OXIDE PASTE (Z-GUARD) 1 APPLIC TOPICAL SCH (11:27)
[2024-06-12] MEDS: VANCOMYCIN 1,250 MG in SODIUM CHLORIDE 0.9% 250 ML IVPB SCH (11:48)
[2024-06-12 11:56] LABS: ALT 23 U/L (4-49); AST 23 U/L (17-59); Albumin 2.5 g/dL (3.5-5.0); Alkaline Phosphatase 132 U/L (38-126); Anion Gap 7 mmol/L; Blood Urea Nitrogen 39 mg/dL (9-20); Calcium 8.4 mg/dL (8.4-10.2); Carbon Dioxide 34 mmol/L (22-30); Chloride 96 mmol/L (98-107); Glucose 294 mg/dL (74-99); Magnesium 2.2 mg/dL (1.6-2.3); Potassium 2.8 mmol/L (3.5-5.1); Sodium 137 mmol/L (137-145); Total Bilirubin 0.2 mg/dL (0.2-1.3); Total Protein 4.9 g/dL (6.3-8.2)
[2024-06-12] MEDS ORDERED: Potassium Replacement Protocol 1 EACH MISC MISCELLANE PRN (12:10)
[2024-06-12 12:17] LABS: Anisocytosis Slight; Basophils % (A) 0 %; Eosinophils % (A) 0 %; HCT 30.6 % (39.0-53.0); Hypochromasia Slight; Lymphocytes # (A) 0.7 k/uL (1.0-4.8); Lymphocytes % (A) 6 %; MCH 31.6 pg (25.0-35.0); MCHC 32.4 g/dL (31.0-37.0); MCV 97.6 fL (80.0-100.0); Macrocytosis Slight; Mean Platelet Volume 9.7; Monocytes # (A) 0.5 k/uL (0-1.0); Monocytes % (A) 5 %; Neutrophils % (A) 88 %; Platelet Count 158 k/uL (150-450); Poikilocytosis Slight; RBC 3.13 m/uL (4.30-5.90); RDW 17.4 % (11.5-15.5); WBC 11.4 k/uL (3.8-10.6)
[2024-06-12 12:20] LABS: HGB 9.9 gm/dL (13.0-17.5)
[2024-06-12] MEDS: polyethylene glycoL 3350 17 GM POWD.PACK PO SCH (13:17)
[2024-06-12] MEDS: POTASSIUM CHLORIDE ER 20 MEQ TAB.ER PO SCH (13:17)
--- NOTE | 2024-06-12 14:22 | XR ---
EXAMINATION TYPE: XR abdomen 2V DATE OF EXAM: 06/12/2024 2:12 PM CLINICAL INDICATION: Male, 59 years old with history of r/o bowel obstruction, abdominal pain, not pa ssing; [facility] COMPARISON: None. TECHNIQUE: Two views of the abdomen were obtained. FINDINGS/IMPRESSION: Gaseous dilation of bowel throughout the abdomen with possible large amount of feces in the rectum fu rther evaluation the abdomen recommended with IV and oral contrast. Fixation hardware in the spine appears intact.
--- NOTE | 2024-06-12 17:43 | P.PN ---
Subjective Progress Note Date: 06/12/24 HISTORY OF PRESENT ILLNESS: This is a 59-year-old male with medical history significant for seizure diso rder, chronic paroxysmal atrial fibrillation not on anticoagulant, hypertension, diabetes, and history of lung cancer with brain metastasis. Patient also has previous history of brain surgery. Patient's A-fib is managed by his PCP. Patient is a poor historian and able to answer yes or no questions but not able to give open-ended answers. Patient's sister is here with him and provided most of the history. We have been asked to see the patient in consultation for A-fib with RVR. Patient was examined at the bedside in the emergency room. Patient came to the hospital because of dizziness and lightheadedness which has been going on for some time. Patient also complains of redness and swelling to bilateral lower extremities as well as an increase in weeping of drainage from the legs currently on ampicillin and Lasix. Patient has been feeling progressively worsened over the last few months since he had a fall. Sister states patient still currently smoking heavily. Patient denies chest pain and shortness of breath. Labs today show WBC 11.4. Hemoglobin 9.9. Potassium 2.8. Chloride 96. BUN 39. Glucose 294. 06/12 Patient's blood pressure is normotensive today. Heart rate is still in the 120s. Satting well on 3 L nasal cannula. Patient is bit more alert today and states he is feeling better. PHYSICAL EXAMINATION Vital signs reviewed. Head: Normocephalic. Eyes: Sclerae nonicteric. Neck: Brisk carotid upstroke, no jugular venous distention. Lungs: Clear to auscultation. No significant wheezing or rhonchi appreciated Heart: Irregular rate and rhythm, S1-S2, no murmur or rub. Abdomen: Soft nontender, positive bowel sounds. Extremities: Bilateral lower extremity swelling and redness, possible cellulitis Neuro: Alert, oritented, no focal deficits. Detailed neuro exam was not performed. ASSESSMENT A-fib with RVR Hypertension, currently normotensive likely due to A-fib Cellulitis Diabetes History of lung cancer with metastasis to the brain PLAN Started Toprol-XL 100 mg twice daily Started Cardizem 240 mg p.o. daily Started aspirin 81 mg Continue amiodarone 400 mg PO twice daily Continue Lasix IV 20 mg every 12 hours ID on board Wound care on board Heme-onc on board Monitor renal function Monitor vital signs Further recommendations to follow based upon clinical course Objective - Vital Signs Vital signs: Vital Signs Temp 98.7 F 06/12/24 03:16 Pulse 128 H 06/12/24 16:00 Resp 18 06/12/24 16:00 BP 134/89 06/12/24 16:00 Pulse Ox 95 06/12/24 16:00 FiO2 Intake & Output 06/11/24 06/12/24 06/12/24 18:59 06:59 18:59 Intake Total 592 Output Total 1450 1300 Balance -1450 -1300 592 Weight 61.235 kg 61.235 kg Intake: Oral 592 Output: Urine 1450 1300 Other: Voiding Method External Catheter External Catheter - Labs CBC & Chem 7: 06/12/24 08:33 06/12/24 08:33 Labs: Abnormal Lab Results - Last 24 Hours (Table) 06/12/24 06/12/24 Range/Units 08:33 08:33 WBC 11.4 H (3.8-10.6) k/uL RBC 3.13 L (4.30-5.90) m/uL Hgb 9.9 L D (13.0-17.5) gm/dL Hct 30.6 L (39.0-53.0) % RDW 17.4 H (11.5-15.5) % Neutrophils # 10.0 H (1.3-7.7) k/uL Lymphocytes # 0.7 L (1.0-4.8) k/uL Potassium 2.8 L (3.5-5.1) mmol/L Chloride 96 L (98-107) mmol/L Carbon Dioxide 34 H (22-30) mmol/L BUN 39 H (9-20) mg/dL Glucose 294 H (74-99) mg/dL Alkaline Phosphatase 132 H (38-126) U/L Total Protein 4.9 L (6.3-8.2) g/dL Albumin 2.5 L (3.5-5.0) g/dL Microbiology - Last 24 Hours (Table) 06/11/24 05:04 Blood Culture - Preliminary Blood
--- NOTE | 2024-06-12 19:30 | P.PN ---
Subjective Progress Note Date: 06/12/24 No acute events. Pt much more alert today. Pt is reporting lower abdominal discomfort and constipation. Denies n/v. Continues on IV vanco Objective - Vital Signs Vital signs: Vital Signs Temp 98.7 F 06/12/24 03:16 Pulse 118 H 06/12/24 08:30 Resp 18 06/12/24 08:30 BP 115/75 06/12/24 08:30 Pulse Ox 97 06/12/24 08:30 FiO2 Intake & Output 06/11/24 06/12/24 06/12/24 18:59 06:59 18:59 Intake Total 472 Output Total 1450 1300 Balance -1450 -1300 472 Weight 61.235 kg 61.235 kg Intake: Oral 472 Output: Urine 1450 1300 Other: Voiding Method External Catheter External Catheter - Constitutional General appearance: Present: no acute distress - EENT Eyes: Present: EOMI ENT: Present: hearing grossly normal - Respiratory Details: breathing is even and unlabored - Cardiovascular Details: skin warm and dry - Gastrointestinal Gastrointestinal Comment(s): mild distention, and tenderness to lower quadrants, no guarding on exam - Integumentary Integumentary Comment(s): significant erythema to BLE, with wounds bilaterally - Psychiatric Psychiatric: Present: A&O x's 3 - Labs CBC & Chem 7: 06/12/24 08:33 06/12/24 18:37 Labs: Abnormal Lab Results - Last 24 Hours (Table) 06/11/24 06/12/24 06/12/24 Range/Units 05:04 08:33 08:33 WBC 11.4 H (3.8-10.6) k/uL RBC 3.13 L (4.30-5.90) m/uL Hgb 9.9 L D (13.0-17.5) gm/dL Hct 30.6 L (39.0-53.0) % RDW 17.4 H (11.5-15.5) % Neutrophils # 10.0 H (1.3-7.7) k/uL Lymphocytes # 0.7 L (1.0-4.8) k/uL Potassium 2.8 L (3.5-5.1) mmol/L Chloride 96 L (98-107) mmol/L Carbon Dioxide 34 H (22-30) mmol/L BUN 39 H (9-20) mg/dL Glucose 294 H (74-99) mg/dL Alkaline Phosphatase 132 H (38-126) U/L Total Protein 4.9 L (6.3-8.2) g/dL Albumin 2.5 L (3.5-5.0) g/dL Procalcitonin 0.86 H (0.02-0.50) ng/mL Assessment and Plan (1) Atrial fibrillation Current Visit: Yes Status: Acute Code(s): I48.91 - UNSPECIFIED ATRIAL FIBRILLATION SNOMED Code(s): 57884705 (2) Cellulitis Current Visit: Yes Status: Acute Code(s): L03.90 - CELLULITIS, UNSPECIFIED SNOMED Code(s): 543077799 (3) Altered mental status Current Visit: No Status: Acute Priority: High Code(s): R41.82 - ALTERED MENTAL STATUS, UNSPECIFIED SNOMED Code(s): 872764613 (4) Lung cancer Current Visit: No Status: Acute Priority: High Code(s): C34.90 - MALIGNANT NEOPLASM OF UNSP PART OF UNSP BRONCHUS OR LUNG SNOMED Code(s): 160315934 Plan: Afib RVR: Presented with dizziness, found to a-fib RVR -Echo obtained -Amiodarone started -Cardiology managing Cellulitis: -BLE cellulitis/wounds noted on exam. Right greater than left, with large wound to dorsal aspect left foot -Vanco started -ID and wound care following -CT left leg w/ contrast ordered to r/o deep tissue infection/osteomyelitis. Scan showed moderate to severe subcutaneous edema in the lower extremity without evidence for organizing fluid collection or for osseous erosion. Small cell lug cancer: -Oncology history and plan as dictated in HPI -Has continued on Tecentriq with stable disease. Will plan for restaging scans -Plan is to continue on Tecentriq, however, treatment has been delayed due to recent hospitalizations -Clinic f/u scheduled on 06/14/24 attests:I have seen and examined pt, performed H&P, developed impression and plan of care. Discussed with dictator. Agree with documentation, dictated as a scribe.
[2024-06-12] MEDS ORDERED: Buprenorphine Hcl [Subutex] 8 MG Tab.Subl PO SCH (21:00)
[2024-06-12] MEDS: DOCUSATE 100 MG CAP PO SCH (21:17)
--- NOTE | 2024-06-13 07:49 | CT ---
EXAMINATION TYPE: CT abdomen pelvis w con DATE OF EXAM: 06/13/2024 COMPARISON: 10/23/2023 HISTORY: abd pain CT DLP: 652.5 mGycm CONTRAST: CT scan of the abdomen and pelvis is performed without Oral Contrast and with IV Contrast, patient in jected with 100 mL of Isovue 300. FINDINGS: LUNG BASES-: No visible nodule. Basilar linear atelectasis noted. LIVER/GB: No calcified gallstones. Hepatic cystic changes noted. Biliary tree is of normal caliber. PANCREAS: No inflammation. No distinct mass. SPLEEN: No splenic enlargement. No lesion seen. ADRENALS: No nodule. No thickening. KIDNEYS/BLADDER: No hydronephrosis. No nephrolithiasis. No distinct renal mass. Urinary bladder g rossly unremarkable. BOWEL: Normal appendix. Normal bowel caliber. No inflammation. Surgical anastomosis at the level of the sigmoid colon. [id number] scattered intracolonic debris. GENITAL ORGANS: No gross abnormality. LYMPH NODES: No greater than 1cm abdominal or pelvic lymph nodes are appreciated. AORTA: No significant abnormality. OSSEOUS STRUCTURES: Severe degenerative change lumbar spine. Laminectomy changes noted as well. OTHER: No significant additional abnormality is seen. IMPRESSION: 1. Moderate fecal stasis. 2. No acute process seen or evidence for metastatic disease. 3. Hepatic cystic changes.
[2024-06-13] MEDS: VANCOMYCIN TROUGH DUE 1 EACH MISC MISCELLANE ONE (09:47)
[2024-06-13] MEDS ORDERED: POTASSIUM CHLORIDE ER 20 MEQ TAB.ER PO STA (10:30)
[2024-06-13] MEDS: FUROSEMIDE 10 MG/ML 2 ML VIAL IV STA (11:45)
--- NOTE | 2024-06-13 12:31 | P.PN ---
Subjective Progress Note Date: 06/12/24 Principal diagnosis: Reason for follow-up is bilateral lower extremity cellulitis Patient is a 59-year-old male with a past medical history significant for hypertension seizure disorder atrial fibrillation metastatic lung cancer with mets to the brain patient has been brought into the hospital complaining of feeling dizzy and lightheaded, patient was noticed to have a bilateral lower extremity cellulitis prompting this consultation. On today's evaluation that is 06/12/2024, Patient is more awake and alert today and afebrile this morning patient denies having any chest pain has been complaining of shortness of breath and dry cough, the patient is comfortably and currently on 3 L current oxygen, patient denies any abdominal pain no diarrhea no nausea no vomiting, denies any worsening pain to bilateral lower extremity. Patient white count is 11.4, creatinine 0.72 blood cultures currently pending Objective - Vital Signs Vital signs: Vital Signs Temp 98.7 F 06/12/24 03:16 Pulse 118 H 06/12/24 08:30 Resp 18 06/12/24 08:30 BP 115/75 06/12/24 08:30 Pulse Ox 97 06/12/24 08:30 FiO2 Intake & Output 06/11/24 06/12/24 06/12/24 18:59 06:59 18:59 Intake Total 472 Output Total 1450 1300 Balance -1450 -1300 472 Weight 61.235 kg 61.235 kg Intake: Oral 472 Output: Urine 1450 1300 Other: Voiding Method External Catheter External Catheter - Exam GENERAL DESCRIPTION: Middle-age lying in bed in no distress RESPIRATORY SYSTEM: Unlabored breathing , decreased breath sounds at bases HEART: S1 S2 regular rate and rhythm , ABDOMEN: Soft , no tenderness EXTREMITIES: Bilateral lower extremity some superficial ulceration minimal slough still have some swelling and redness - Labs CBC & Chem 7: 06/12/24 08:33 06/13/24 09:49 Labs: Abnormal Lab Results - Last 24 Hours (Table) 06/11/24 06/12/24 06/12/24 Range/Units 05:04 08:33 08:33 WBC 11.4 H (3.8-10.6) k/uL RBC 3.13 L (4.30-5.90) m/uL Hgb 9.9 L D (13.0-17.5) gm/dL Hct 30.6 L (39.0-53.0) % RDW 17.4 H (11.5-15.5) % Neutrophils # 10.0 H (1.3-7.7) k/uL Lymphocytes # 0.7 L (1.0-4.8) k/uL Potassium 2.8 L (3.5-5.1) mmol/L Chloride 96 L (98-107) mmol/L Carbon Dioxide 34 H (22-30) mmol/L BUN 39 H (9-20) mg/dL Glucose 294 H (74-99) mg/dL Alkaline Phosphatase 132 H (38-126) U/L Total Protein 4.9 L (6.3-8.2) g/dL Albumin 2.5 L (3.5-5.0) g/dL Procalcitonin 0.86 H (0.02-0.50) ng/mL Assessment and Plan (1) Bilateral lower leg cellulitis Current Visit: Yes Status: Acute Code(s): L03.116 - CELLULITIS OF LEFT LOWER LIMB; L03.115 - CELLULITIS OF RIGHT LOWER LIMB SNOMED Code(s): 561786224 (2) Allergy to cephalosporin Current Visit: Yes Status: Acute Code(s): Z88.1 - ALLERGY STATUS TO OTHER ANTIBIOTIC AGENTS SNOMED Code(s): 887113467 Plan: 1patient presented to hospital with lightheaded dizziness and apparently the patient did have a fall at home did have evidence of bilateral lower extremity swelling redness concerning for cellulitis likely from gram-positive skin pao patient not running any fever. 2cephalexin allergy that will limit the number of antibiotics safe to use. 3patient to continue with vancomycin pharmacy to dose target trough of 15 while watching kidney function and Vanco trough closely. Dictation was produced using [employer] software. please excuse any grammatical, word or spelling errors. Time with Patient: Less than 30
--- NOTE | 2024-06-13 12:32 | P.PN ---
Subjective Progress Note Date: 06/13/24 Principal diagnosis: Reason for follow-up is bilateral lower extremity cellulitis Patient is a 59-year-old male with a past medical history significant for hypertension seizure disorder atrial fibrillation metastatic lung cancer with mets to the brain patient has been brought into the hospital complaining of feeling dizzy and lightheaded, patient was noticed to have a bilateral lower extremity cellulitis prompting this consultation. On today's evaluation that is 06/13/2024,the patient denies any fever or any chills, patient is breathing comfortably on 3 L nasal current oxygen, the patient has been complaining of some right-sided chest pain and shortness of breath but no significant cough, patient denies abdominal pain, no nausea vomiting or diarrhea. Patient still complaining of pain to bilateral extremity but no worsening. Patient did have potassium of 3.4 no CBC was done today Vanco trough is 14.8 blood cultures pending Objective - Vital Signs Vital signs: Vital Signs Temp 97.6 F 06/13/24 11:06 Pulse 78 06/13/24 11:06 Resp 17 06/13/24 11:06 BP 102/69 06/13/24 11:06 Pulse Ox 99 06/13/24 11:06 FiO2 Intake & Output 06/12/24 06/13/24 06/13/24 18:59 06:59 18:59 Intake Total 828 850 480 Output Total 1200 125 Balance 828 -350 355 Weight 61.235 kg 59 kg Intake: Intake, IV Titration 250 Amount Vancomycin 1,250 mg In 250 Sodium Chloride 0.9% 250 ml @ 125 mls/hr IVPB Q12H [facility] Rx#:[id number] Oral 828 600 480 Output: Urine 1200 125 Other: Voiding Method External Catheter External Catheter External Catheter # Voids 1 # Bowel Movements 1 2 1 - Exam GENERAL DESCRIPTION: Middle-age lying in bed in no distress RESPIRATORY SYSTEM: Unlabored breathing , decreased breath sounds at bases HEART: S1 S2 regular rate and rhythm , ABDOMEN: Soft , no tenderness EXTREMITIES: Bilateral lower extremity currently wrapped no drainage on the dressing - Labs CBC & Chem 7: 06/12/24 08:33 06/13/24 09:49 Labs: Abnormal Lab Results - Last 24 Hours (Table) 06/12/24 06/13/24 Range/Units 18:37 09:49 Potassium 3.0 L 3.4 L (3.5-5.1) mmol/L Microbiology - Last 24 Hours (Table) 06/11/24 05:04 Blood Culture - Preliminary Blood Assessment and Plan (1) Bilateral lower leg cellulitis Current Visit: Yes Status: Acute Code(s): L03.116 - CELLULITIS OF LEFT LOWER LIMB; L03.115 - CELLULITIS OF RIGHT LOWER LIMB SNOMED Code(s): 193240584 (2) Allergy to cephalosporin Current Visit: Yes Status: Acute Code(s): Z88.1 - ALLERGY STATUS TO OTHER ANTIBIOTIC AGENTS SNOMED Code(s): 777543591 Plan: 1patient presented to hospital with lightheaded dizziness and apparently the patient did have a fall at home did have evidence of bilateral lower extremity swelling redness concerning for cellulitis likely from gram-positive skin pao patient not running any fever. 2cephalexin allergy that will limit the number of antibiotics safe to use. 3patient seem to have some clinical improvement, he will continue with vancomycin pharmacy to dose target trough of 15, Vanco trough is currently therapeutic creatinine is normal Dictation was produced using [employer] dictation software. please excuse any grammatical, word or spelling errors. Time with Patient: Less than 30
[2024-06-13] MEDS: POTASSIUM CHLORIDE ER 20 MEQ TAB.ER PO STA (12:36)
--- NOTE | 2024-06-13 17:51 | P.PN ---
Subjective Progress Note Date: 06/13/24 HISTORY OF PRESENT ILLNESS: This is a 59-year-old male with medical history significant for seizure dis order, chronic paroxysmal atrial fibrillation not on anticoagulant, hypertension, diabetes, and history of lung cancer with brain metastasis. Patient also has previous history of brain surgery. Patient's A-fib is managed by his PCP. Patient is a poor historian and able to answer yes or no questions but not able to give open-ended answers. Patient's sister is here with him and provided most of the history. We have been asked to see the patient in consultation for A-fib with RVR. Patient was examined at the bedside in the emergency room. Patient came to the hospital because of dizziness and lightheadedness which has been going on for some time. Patient also complains of redness and swelling to bilateral lower extremities as well as an increase in weeping of drainage from the legs currently on ampicillin and Lasix. Patient has been feeling progressively worsened over the last few months since he had a fall. Sister states patient still currently smoking heavily. Patient denies ch est pain and shortness of breath. Labs today show WBC 11.4. Hemoglobin 9.9. Potassium 2.8. Chloride 96. BUN 39. Glucose 294. 06/12 Patient's blood pressure is normotensive today. Heart rate is still in the 120s. Satting well on 3 L nasal cannula. Patient is bit more alert today and states he is feeling better. 06/13 Patient states that his breathing status is improving. He continues to have lower extremity edema. Mental status is back to baseline. Blood pressure 100/67, heart rate 88, pulse ox 98% on 3 L nasal cannula. Potassium 3.4. Echocardiogram reveals loculated anterior pericardial effusion. Normal LV function. PHYSICAL EXAMINATION Vital signs reviewed. Head: Normocephalic. Eyes: Sclerae nonicteric. Neck: Brisk carotid upstroke, no jugular venous distention. Lungs: Clear to auscultation. No significant wheezing or rhonchi appreciated Heart: Irregular rate and rhythm, S1-S2, no murmur or rub. Abdomen: Soft nontender, positive bowel sounds. Extremities: Bilateral lower extremity edema 2+ and redness, secondary to cellulitis Neuro: Alert, oritented x 3. ASSESSMENT Paroxysmal A-fib with RVR Hypertension, currently normotensive likely due to A-fib Edema and cellulitis bilateral lower extremities Diabetes mellitus type II History of lung cancer with metastasis to the brain PLAN Continue patient on the following cardiac medications: Amiodarone 400 mg twice daily, aspirin 81 mg daily, Cardizem CD 240 mg daily, Toprol XL 100 mg twice daily Continue patient on IV Lasix 40 mg and increase frequency to every 12 hours Continue IV antibiotics per infectious disease Oncology is following Monitor CAMRYN, daily weights, electrolytes and renal function Further recommendations to follow based upon clinical course Nurse practitioner note has been reviewed, I agree with documented findings and plan of care. Patient was seen and examined. Objective - Vital Signs Vital signs: Vital Signs Temp 98.2 F 06/13/24 08:00 Pulse 88 06/13/24 08:00 Resp 17 06/13/24 08:00 BP 100/67 06/13/24 08:00 Pulse Ox 98 06/13/24 08:00 FiO2 Intake & Output 06/12/24 06/13/24 06/13/24 18:59 06:59 18:59 Intake Total 828 850 Output Total 1200 Balance 828 -350 Weight 61.235 kg 59 kg Intake: Intake, IV Titration 250 Amount Vancomycin 1,250 mg In 250 Sodium Chloride 0.9% 250 ml @ 125 mls/hr IVPB Q12H [facility] Rx#:[id number] Oral 828 600 Output: Urine 1200 Other: Voiding Method External Catheter External Catheter External Catheter # Bowel Movements 1 2 - Labs CBC & Chem 7: 06/12/24 08:33 06/13/24 09:49 Labs: Abnormal Lab Results - Last 24 Hours (Table) 06/12/24 06/12/24 06/12/24 Range/Units 08:33 08:33 18:37 WBC 11.4 H (3.8-10.6) k/uL RBC 3.13 L (4.30-5.90) m/uL Hgb 9.9 L D (13.0-17.5) gm/dL Hct 30.6 L (39.0-53.0) % RDW 17.4 H (11.5-15.5) % Neutrophils # 10.0 H (1.3-7.7) k/uL Lymphocytes # 0.7 L (1.0-4.8) k/uL Potassium 2.8 L 3.0 L (3.5-5.1) mmol/L Chloride 96 L (98-107) mmol/L Carbon Dioxide 34 H (22-30) mmol/L BUN 39 H (9-20) mg/dL Glucose 294 H (74-99) mg/dL Alkaline Phosphatase 132 H (38-126) U/L Total Protein 4.9 L (6.3-8.2) g/dL Albumin 2.5 L (3.5-5.0) g/dL Microbiology - Last 24 Hours (Table) 06/11/24 05:04 Blood Culture - Preliminary Blood
[2024-06-13] MEDS: FUROSEMIDE 10 MG/ML 4 ML VIAL IV SCH (20:44)
[2024-06-14 06:19] LABS: African American GFR (CKD) >90 (>60 ml/min/1.73 sqM); Anion Gap 1 mmol/L; Blood Urea Nitrogen 23 mg/dL (9-20); Calcium 7.8 mg/dL (8.4-10.2); Carbon Dioxide 38 mmol/L (22-30); Chloride 98 mmol/L (98-107); Glucose 109 mg/dL (74-99); Non-African American GFR(CKD) >90 (>60 ml/min/1.73 sqM); Potassium 3.2 mmol/L (3.5-5.1); Sodium 137 mmol/L (137-145)
[2024-06-14] MEDS: FUROSEMIDE 40 MG TAB PO SCH (09:55)
[2024-06-14] MEDS: POTASSIUM CHLORIDE ER 20 MEQ TAB.ER PO ONE (12:21)
--- NOTE | 2024-06-14 13:12 | P.PN ---
Subjective Progress Note Date: 06/14/24 HISTORY OF PRESENT ILLNESS: This is a 59-year-old male with medical history significant for seizure dis order, chronic paroxysmal atrial fibrillation not on anticoagulant, hypertension, diabetes, and history of lung cancer with brain metastasis. Patient also has previous history of brain surgery. Patient's A-fib is managed by his PCP. Patient is a poor historian and able to answer yes or no questions but not able to give open-ended answers. Patient's sister is here with him and provided most of the history. We have been asked to see the patient in consultation for A-fib with RVR. Patient was examined at the bedside in the emergency room. Patient came to the hospital because of dizziness and lightheadedness which has been going on for some time. Patient also complains of redness and swelling to bilateral lower extremities as well as an increase in weeping of drainage from the legs currently on ampicillin and Lasix. Patient has been feeling progressively worsened over the last few months since he had a fall. Sister states patient still currently smoking heavily. Patient denies ch est pain and shortness of breath. Labs today show WBC 11.4. Hemoglobin 9.9. Potassium 2.8. Chloride 96. BUN 39. Glucose 294. 06/12 Patient's blood pressure is normotensive today. Heart rate is still in the 120s. Satting well on 3 L nasal cannula. Patient is bit more alert today and states he is feeling better. 06/13 Patient states that his breathing status is improving. He continues to have lower extremity edema. Mental status is back to baseline. Blood pressure 100/67, heart rate 88, pulse ox 98% on 3 L nasal cannula. Potassium 3.4. Echocardiogram reveals loculated anterior pericardial effusion. Normal LV function. 06/14 Patient states his breathing is better today. He continues to have crackles in the bases but this may be his baseline. Blood pressure is 94/55, heart rate 76, pulse ox 91% on 3 L nasal cannula. Patient has been maintained on IV Lasix 40 mg twice daily. Repeat blood work reveals potassium 3.2, BUN 23 creatinine 0.48. PHYSICAL EXAMINATION Vital signs reviewed. Head: Normocephalic. Eyes: Sclerae nonicteric. Neck: Brisk carotid upstroke, no jugular venous distention. Lungs: Clear to auscultation. No significant wheezing or rhonchi appreciated Heart: Irregular rate and rhythm, S1-S2, no murmur or rub. Abdomen: Soft nontender, positive bowel sounds. Extremities: Bilateral lower extremity edema 2+ and redness, secondary to cellulitis Neuro: Alert, oritented x 3. ASSESSMENT Paroxysmal A-fib with RVR Hypertension, currently normotensive likely due to A-fib Edema and cellulitis bilateral lower extremities Diabetes mellitus type II History of lung cancer with metastasis to the brain PLAN Continue patient on the following cardiac medications: Amiodarone 400 mg twice daily, aspirin 81 mg daily, Cardizem CD 240 mg daily, Toprol XL 100 mg twice daily Transition IV Lasix to oral 40 mg twice daily Continue IV antibiotics per infectious disease Oncology is following Cardiology will sign off this case and follow on an as-needed basis. Please re consult for any new concerns. Patient may follow-up in the office in one to 2 weeks. Nurse practitioner note has been reviewed, I agree with documented findings and plan of care. Patient was seen and examined. Objective - Vital Signs Vital signs: Vital Signs Temp 98.0 F 06/14/24 03:13 Pulse 76 06/14/24 03:13 Resp 18 06/14/24 03:13 BP 94/55 06/14/24 03:13 Pulse Ox 91 L 06/14/24 03:13 FiO2 Intake & Output 06/13/24 06/14/24 06/14/24 18:59 06:59 18:59 Intake Total 1440 Output Total 625 800 Balance 815 -800 Weight 60.7 kg Intake: Oral 1440 Output: Urine 625 800 Other: Voiding Method External Catheter Urinal # Voids 3 1 # Bowel Movements 2 1 - Labs CBC & Chem 7: 06/12/24 08:33 06/14/24 05:41 Labs: Abnormal Lab Results - Last 24 Hours (Table) 06/13/24 06/14/24 Range/Units 09:49 05:41 Potassium 3.4 L 3.2 L (3.5-5.1) mmol/L Carbon Dioxide 38 H (22-30) mmol/L BUN 23 H (9-20) mg/dL Creatinine 0.48 L (0.66-1.25) mg/dL Glucose 109 H (74-99) mg/dL Calcium 7.8 L (8.4-10.2) mg/dL Microbiology - Last 24 Hours (Table) 06/11/24 05:04 Blood Culture - Preliminary Blood
--- NOTE | 2024-06-14 15:27 | P.PN ---
Subjective Progress Note Date: 06/14/24 Principal diagnosis: Reason for follow-up is bilateral lower extremity cellulitis Patient is a 59-year-old male with a past medical history significant for hypertension seizure disorder atrial fibrillation metastatic lung cancer with mets to the brain patient has been brought into the hospital complaining of feeling dizzy and lightheaded, patient was noticed to have a bilateral lower extremity cellulitis prompting this consultation. On today's evaluation that is 06/14/2024,the patient remains to be afebrile, patient is on 4 L nasal cannula supplemental oxygen and denies any shortness of breath, complaining of some right-sided chest pain or cough.Patient denies having any nausea or vomiting, no abdominal pain and no diarrhea, denies any worsening pain to lower extremity. Patient did have a creatinine 0.48 no CBC was done today blood cultures so far negative Objective - Vital Signs Vital signs: Vital Signs Temp 97.6 F 06/14/24 11:09 Pulse 91 06/14/24 11:09 Resp 18 06/14/24 11:09 BP 107/71 06/14/24 11:09 Pulse Ox 94 L 06/14/24 11:09 FiO2 Intake & Output 06/13/24 06/14/24 06/14/24 18:59 06:59 18:59 Intake Total 1440 240 Output Total 625 800 Balance 815 -800 240 Weight 60.7 kg Intake: Oral 1440 240 Output: Urine 625 800 Other: Voiding Method External Catheter Urinal # Voids 3 1 # Bowel Movements 2 1 - Exam GENERAL DESCRIPTION: Middle-age lying in bed in no distress RESPIRATORY SYSTEM: Unlabored breathing , decreased breath sounds at bases HEART: S1 S2 regular rate and rhythm , ABDOMEN: Soft , no tenderness EXTREMITIES: Bilateral lower extremity currently wrapped no drainage on the dressing - Labs CBC & Chem 7: 06/12/24 08:33 06/14/24 05:41 Labs: Abnormal Lab Results - Last 24 Hours (Table) 06/14/24 Range/Units 05:41 Potassium 3.2 L (3.5-5.1) mmol/L Carbon Dioxide 38 H (22-30) mmol/L BUN 23 H (9-20) mg/dL Creatinine 0.48 L (0.66-1.25) mg/dL Glucose 109 H (74-99) mg/dL Calcium 7.8 L (8.4-10.2) mg/dL Microbiology - Last 24 Hours (Table) 06/11/24 05:04 Blood Culture - Preliminary Blood Assessment and Plan (1) Bilateral lower leg cellulitis Current Visit: Yes Status: Acute Code(s): L03.116 - CELLULITIS OF LEFT LOWER LIMB; L03.115 - CELLULITIS OF RIGHT LOWER LIMB SNOMED Code(s): 767675210 (2) Allergy to cephalosporin Current Visit: Yes Status: Acute Code(s): Z88.1 - ALLERGY STATUS TO OTHER ANTIBIOTIC AGENTS SNOMED Code(s): 501859664 Plan: 1patient presented to hospital with lightheaded dizziness and apparently the patient did have a fall at home did have evidence of bilateral lower extremity swelling redness concerning for cellulitis likely from gram-positive skin pao patient not running any fever. 2cephalexin allergy that will limit the number of antibiotics safe to use. 3patient lower extremity swelling that has slightly decreased, will continue with vancomycin pharmacy to dose target trough of 15, and transition to oral antibiotics on discharge Dictation was produced using [employer] dictation software. please excuse any grammatical, word or spelling errors. Time with Patient: Less than 30
--- NOTE | 2024-06-14 20:31 | PN ---
PROGRESS NOTE CHIEF COMPLAINT: Atrial fibrillation and CA of the lung. HISTORY OF PRESENT ILLNESS: This gentleman's studies suggested he is constipated and we are working on relieving his obstipation. PHYSICAL EXAMINATION: CHEST: Clear. CARDIAC: Normal. ABDOMEN: Still distended and slightly firm. IMPRESSION: 1. Abdominal pain and constipation. 2. Carcinoma of the lung. PLAN: Cathartics and enemas as necessary to increase his bowel elimination. MMODL / IJN: [id number] /
--- NOTE | 2024-06-15 01:16 | PN ---
PROGRESS NOTE DATE OF SERVICE: 06/12/2024 CHIEF COMPLAINT: Metastatic CA of the lung with atrial fibrillation. HISTORY OF PRESENT ILLNESS: This patient is a little bit lethargic. He is not complaining of any chest pain. He is having some abdominal discomfort. He has not had a bowel movement in several days. Potassium is also slightly low. PHYSICAL EXAMINATION: CHEST: Clear. CARDIAC: Normal. ABDOMEN: Somewhat firm and somewhat tender. Bowel sounds are diminished. IMPRESSION: 1. Abdominal distention with pain. 2. Metastatic carcinoma of the lung with metastases to the brain. PLAN: 1. Flat and upright films of the abdomen. 2. CT of the abdomen and pelvis. 3. Analgesics. MMODL / IJN: [id number] /
--- NOTE | 2024-06-15 01:28 | PN ---
PROGRESS NOTE DATE OF SERVICE: 06/14/2024 CHIEF COMPLAINT: Atrial fibrillation. HISTORY OF PRESENT ILLNESS: This gentleman is doing better. He is stooled and his abdominal pain has gone. PHYSICAL EXAMINATION: CHEST: Clear. CARDIAC EXAM: Normal. ABDOMEN: Soft and less tender. IMPRESSION: 1. Abdominal pain secondary to constipation. 2. Atrial fibrillation. 3. Metastatic CA of the lung. PLAN: Try to progress activity and diet and start to think about discharge plan. MMODL / IJN: [id number] /
[2024-06-15 08:09] LABS: African American GFR (CKD) >90 (>60 ml/min/1.73 sqM); Non-African American GFR(CKD) >90 (>60 ml/min/1.73 sqM)
--- NOTE | 2024-06-15 14:29 | P.PN ---
Subjective Progress Note Date: 06/15/24 Principal diagnosis: Reason for follow-up is bilateral lower extremity cellulitis Patient is a 59-year-old male with a past medical history significant for hypertension seizure disorder atrial fibrillation metastatic lung cancer with mets to the brain patient has been brought into the hospital complaining of feeling dizzy and lightheaded, patient was noticed to have a bilateral lower extremity cellulitis prompting this consultation. On today's evaluation that is 06/15/2024, the patient continues to be afebrile, the patient is on 4 L current oxygen and breathing comfortably, the Pt has been complaining of right-sided chest pain but no significant cough, the patient denies having any abdominal pain no vomiting or any diarrhea has been reported by the nursing staff, denies any worsening pain to the lower extremity. Patient did have a creatinine 0.5 but no CBC was done today blood cultures so far negative Objective - Vital Signs Vital signs: Vital Signs Temp 97.6 F 06/15/24 08:54 Pulse 94 06/15/24 12:16 Resp 19 06/15/24 12:16 BP 123/72 06/15/24 12:16 Pulse Ox 92 L 06/15/24 12:16 FiO2 Intake & Output 06/14/24 06/15/24 06/15/24 18:59 06:59 18:59 Intake Total 760 480 Output Total 900 300 Balance -140 180 Weight 62 kg Intake: Oral 760 480 Output: Urine 900 300 Other: Voiding Method Urinal Urinal Urinal # Voids 2 # Bowel Movements 1 2 1 - Exam GENERAL DESCRIPTION: Middle-age lying in bed in no distress RESPIRATORY SYSTEM: Unlabored breathing , decreased breath sounds at bases HEART: S1 S2 regular rate and rhythm , ABDOMEN: Soft , no tenderness EXTREMITIES: Bilateral lower extremity currently wrapped no drainage on the dressing - Labs CBC & Chem 7: 06/12/24 08:33 06/15/24 06:57 Labs: Abnormal Lab Results - Last 24 Hours (Table) 06/15/24 Range/Units 06:57 Creatinine 0.51 L (0.66-1.25) mg/dL Microbiology - Last 24 Hours (Table) 06/11/24 05:04 Blood Culture - Preliminary Blood Assessment and Plan (1) Bilateral lower leg cellulitis Current Visit: Yes Status: Acute Code(s): L03.116 - CELLULITIS OF LEFT LOWER LIMB; L03.115 - CELLULITIS OF RIGHT LOWER LIMB SNOMED Code(s): 888540493 (2) Allergy to cephalosporin Current Visit: Yes Status: Acute Code(s): Z88.1 - ALLERGY STATUS TO OTHER ANTIBIOTIC AGENTS SNOMED Code(s): 290529155 Plan: 1patient presented to hospital with lightheaded dizziness and apparently the patient did have a fall at home did have evidence of bilateral lower extremity swelling redness concerning for cellulitis likely from gram-positive skin pao patient not running any fever. 2cephalexin allergy that will limit the number of antibiotics safe to use. 3patient lower extremity swelling and redness has slightly decreased, 4patient will continue with vancomycin pharmacy to dose target trough of 15, and transition to oral antibiotics on discharge Dictation was produced using [employer] dictation software. please excuse any grammatical, word or spelling errors. Time with Patient: Less than 30
[2024-06-15] MEDS: levETIRAcetam 500 MG TAB PO SCH (20:14)
[2024-06-16 08:33] LABS: African American GFR (CKD) >90 (>60 ml/min/1.73 sqM); Non-African American GFR(CKD) >90 (>60 ml/min/1.73 sqM)
[2024-06-16] MEDS: VANCOMYCIN TROUGH DUE 1 EACH MISC MISCELLANE ONE (11:27)
--- NOTE | 2024-06-16 16:40 | P.PN ---
Subjective Progress Note Date: 06/16/24 Principal diagnosis: Reason for follow-up is bilateral lower extremity cellulitis Patient is a 59-year-old male with a past medical history significant for hypertension seizure disorder atrial fibrillation metastatic lung cancer with mets to the brain patient has been brought into the hospital complaining of feeling dizzy and lightheaded, patient was noticed to have a bilateral lower extremity cellulitis prompting this consultation. On today's evaluation that is 06/16/2024, Patient is afebrile patient is currently on room air and denies having any shortness of breath, the patient still complaining of right lower rib cage chest pain but no worsening cough, the patient denies any nausea vomiting did not have any abdominal pain and no diarrhea and no worsening pain to the lower extremity. Patient did have a creatinine 0.59 when contrast is 13.9 blood culture has been negative Objective - Vital Signs Vital signs: Vital Signs Temp 98.1 F 06/16/24 04:00 Pulse 83 06/16/24 15:33 Resp 18 06/16/24 15:33 BP 100/70 06/16/24 12:50 Pulse Ox 90 L 06/16/24 12:50 FiO2 Intake & Output 06/15/24 06/16/24 06/16/24 18:59 06:59 18:59 Intake Total 960 960 Output Total 300 450 Balance 660 -450 960 Weight 62.8 kg Intake: Oral 960 960 Output: Urine 300 450 Other: Voiding Method Urinal Urinal Urinal # Voids 1 1 # Bowel Movements 1 1 1 - Exam GENERAL DESCRIPTION: Middle-age lying in bed in no distress RESPIRATORY SYSTEM: Unlabored breathing , decreased breath sounds at bases HEART: S1 S2 regular rate and rhythm , ABDOMEN: Soft , no tenderness EXTREMITIES: Bilateral lower extremity currently wrapped no drainage on the dressing - Labs CBC & Chem 7: 06/12/24 08:33 06/16/24 07:50 Labs: Abnormal Lab Results - Last 24 Hours (Table) 06/16/24 Range/Units 07:50 Creatinine 0.59 L (0.66-1.25) mg/dL Microbiology - Last 24 Hours (Table) 06/11/24 05:04 Blood Culture - Final Blood Assessment and Plan (1) Bilateral lower leg cellulitis Current Visit: Yes Status: Acute Code(s): L03.116 - CELLULITIS OF LEFT LOWER LIMB; L03.115 - CELLULITIS OF RIGHT LOWER LIMB SNOMED Code(s): 056416630 (2) Allergy to cephalosporin Current Visit: Yes Status: Acute Code(s): Z88.1 - ALLERGY STATUS TO OTHER ANTIBIOTIC AGENTS SNOMED Code(s): 537720672 Plan: 1patient presented to hospital with lightheaded dizziness and apparently the patient did have a fall at home did have evidence of bilateral lower extremity swelling redness concerning for cellulitis likely from gram-positive skin pao patient not running any fever. 2cephalexin allergy that will limit the number of antibiotics safe to use. 3patient lower extremity swelling and redness has slightly decreased, will continue vancomycin while patient vancomycin trough is therapeutic creatinine is normal consider short course of oral doxycycline on discharge Dictation was produced using [employer] dictation software. please excuse any grammatical, word or spelling errors. Time with Patient: Less than 30
[2024-06-16] MEDS: HYDROcodone/APAP 7.5-325MG 1 EACH TAB PO PRN (17:31)
[2024-06-16] MEDS: PSYLLIUM HUSK 100% 6 GM PACKET PO SCH (21:20)
[2024-06-16] MEDS: polyethylene glycoL 3350 17 GM POWD.PACK PO SCH (21:21)
[2024-06-16] MEDS: VANCOMYCIN 1,250 MG in SODIUM CHLORIDE 0.9% 250 ML IVPB SCH (21:21)
[2024-06-17 08:38] LABS: African American GFR (CKD) >90 (>60 ml/min/1.73 sqM); Non-African American GFR(CKD) >90 (>60 ml/min/1.73 sqM)
--- NOTE | 2024-06-17 12:30 | P.PN ---
Subjective Progress Note Date: 06/17/24 Principal diagnosis: Reason for follow-up is bilateral lower extremity cellulitis Patient is a 59-year-old male with a past medical history significant for hypertension seizure disorder atrial fibrillation metastatic lung cancer with mets to the brain patient has been brought into the hospital complaining of feeling dizzy and lightheaded, patient was noticed to have a bilateral lower extremity cellulitis prompting this consultation. On today's evaluation that is 06/17/2024, patient has been afebrile, patient is breathing comfortably and is currently on room air, patient denies having any significant cough still some right-sided chest pain shortness of breath, patient denies nausea vomiting or diarrhea and no abdominal pain pain to the lower extremity has decreased in intensity. Patient did have a creatinine 0.60 blood culture have been negative Objective - Vital Signs Vital signs: Vital Signs Temp 98.1 F 06/17/24 11:56 Pulse 86 06/17/24 11:56 Resp 18 06/17/24 11:56 BP 102/68 06/17/24 11:56 Pulse Ox 95 06/17/24 11:56 FiO2 Intake & Output 06/16/24 06/17/24 06/17/24 18:59 06:59 18:59 Intake Total 960 20 10 Balance 960 20 10 Weight 64.3 kg Intake: IV 20 10 Invasive Line 3 20 10 Oral 960 Other: Voiding Method Urinal Bedside Commode Bedside Commode # Voids 1 1 # Bowel Movements 1 1 - Exam GENERAL DESCRIPTION: Middle-age lying in bed in no distress RESPIRATORY SYSTEM: Unlabored breathing , decreased breath sounds at bases HEART: S1 S2 regular rate and rhythm , ABDOMEN: Soft , no tenderness EXTREMITIES: Bilateral lower extremity currently wrapped no drainage on the dressing - Labs CBC & Chem 7: 06/12/24 08:33 06/17/24 08:05 Labs: Abnormal Lab Results - Last 24 Hours (Table) 06/17/24 Range/Units 08:05 Creatinine 0.60 L (0.66-1.25) mg/dL Microbiology - Last 24 Hours (Table) 06/11/24 05:04 Blood Culture - Final Blood Assessment and Plan (1) Bilateral lower leg cellulitis Current Visit: Yes Status: Acute Code(s): L03.116 - CELLULITIS OF LEFT LOWER LIMB; L03.115 - CELLULITIS OF RIGHT LOWER LIMB SNOMED Code(s): 982045184 (2) Allergy to cephalosporin Current Visit: Yes Status: Acute Code(s): Z88.1 - ALLERGY STATUS TO OTHER ANTIBIOTIC AGENTS SNOMED Code(s): 742326552 Plan: 1patient presented to hospital with lightheaded dizziness and apparently the patient did have a fall at home did have evidence of bilateral lower extremity swelling redness concerning for cellulitis likely from gram-positive skin pao patient not running any fever. 2cephalexin allergy that will limit the number of antibiotics safe to use. 3patient lower extremity swelling and redness has shown some clinical improvement, patient is currently on vancomycin pharmacy to dose to continue while inpatient and consider short course of oral doxycycline on discharge Dictation was produced using [employer] dictation software. please excuse any grammatical, word or spelling errors. Time with Patient: Less than 30
[2024-06-18 04:39] LABS: Anisocytosis Slight; Hypochromasia Marked; MCH 30.2 pg (25.0-35.0); MCHC 30.8 g/dL (31.0-37.0); Macrocytosis Slight; Mean Platelet Volume 8.4; Platelet Count 305 k/uL (150-450); Poikilocytosis Slight; RBC 2.96 m/uL (4.30-5.90); RDW 16.9 % (11.5-15.5)
[2024-06-18 04:52] LABS: African American GFR (CKD) >90 (>60 ml/min/1.73 sqM); Non-African American GFR(CKD) >90 (>60 ml/min/1.73 sqM)
[2024-06-18 05:02] LABS: African American GFR (CKD) >90 (>60 ml/min/1.73 sqM); Anion Gap 4 mmol/L; Blood Urea Nitrogen 26 mg/dL (9-20); Calcium 8.6 mg/dL (8.4-10.2); Carbon Dioxide 37 mmol/L (22-30); Chloride 95 mmol/L (98-107); Glucose 114 mg/dL (74-99); Non-African American GFR(CKD) >90 (>60 ml/min/1.73 sqM); Potassium 4.3 mmol/L (3.5-5.1); Sodium 136 mmol/L (137-145)
[2024-06-18] MEDS: VANCOMYCIN TROUGH DUE 1 EACH MISC MISCELLANE ONE (08:19)
--- NOTE | 2024-06-18 12:16 | P.PN ---
Subjective Progress Note Date: 06/18/24 Principal diagnosis: Reason for follow-up is bilateral lower extremity cellulitis Patient is a 59-year-old male with a past medical history significant for hypertension seizure disorder atrial fibrillation metastatic lung cancer with mets to the brain patient has been brought into the hospital complaining of feeling dizzy and lightheaded, patient was noticed to have a bilateral lower extremity cellulitis prompting this consultation. On today's evaluation that is 06/18/2024, Patient is afebrile this morning patient has been complaining of some right-sided chest pain which has decreased in intensity, no cough, the patient is breathing comfortably and currently on 2 L nasal cannula oxygen patient denies any abdominal pain no diarrhea no nausea no vomiting, pain to the lower extremity has decreased in intensity. The patient white count is 12,000, creatinine 0.62 blood culture has been negative Objective - Vital Signs Vital signs: Vital Signs Temp 98.5 F 06/18/24 11:30 Pulse 96 06/18/24 11:30 Resp 18 06/18/24 11:30 BP 98/65 06/18/24 11:30 Pulse Ox 98 06/18/24 11:30 FiO2 Intake & Output 06/17/24 06/18/24 06/18/24 18:59 06:59 18:59 Intake Total 441 17 4753 Output Total 227 Balance 33 20 1020 Weight 65.9 kg Intake: IV 20 20 Invasive Line 3 20 20 Oral 240 1020 Output: Urine 225 Urine/Stool Mix 2 Other: Voiding Method Bedside Commode Toilet Toilet Urinal # Voids 2 2 1 # Bowel Movements 2 2 1 - Exam GENERAL DESCRIPTION: Middle-age lying in bed in no distress RESPIRATORY SYSTEM: Unlabored breathing , decreased breath sounds at bases HEART: S1 S2 regular rate and rhythm , ABDOMEN: Soft , no tenderness EXTREMITIES: Bilateral lower extremity currently wrapped no drainage on the dressing - Labs CBC & Chem 7: 06/18/24 04:21 06/18/24 04:21 Labs: Abnormal Lab Results - Last 24 Hours (Table) 06/18/24 06/18/24 06/18/24 Range/Units 04:21 04:21 04:21 WBC 12.0 H (3.8-10.6) k/uL RBC 2.96 L (4.30-5.90) m/uL Hgb 9.0 L (13.0-17.5) gm/dL Hct 29.0 L (39.0-53.0) % MCHC 30.8 L (31.0-37.0) g/dL RDW 16.9 H (11.5-15.5) % Sodium 136 L (137-145) mmol/L Chloride 95 L (98-107) mmol/L Carbon Dioxide 37 H (22-30) mmol/L BUN 26 H (9-20) mg/dL Creatinine 0.59 L 0.62 L (0.66-1.25) mg/dL Glucose 114 H (74-99) mg/dL Assessment and Plan (1) Bilateral lower leg cellulitis Current Visit: Yes Status: Acute Code(s): L03.116 - CELLULITIS OF LEFT LOWER LIMB; L03.115 - CELLULITIS OF RIGHT LOWER LIMB SNOMED Code(s): 985744600 (2) Allergy to cephalosporin Current Visit: Yes Status: Acute Code(s): Z88.1 - ALLERGY STATUS TO OTHER ANTIBIOTIC AGENTS SNOMED Code(s): 995131624 Plan: 1patient presented to hospital with lightheaded dizziness and apparently the patient did have a fall at home did have evidence of bilateral lower extremity swelling redness concerning for cellulitis likely from gram-positive skin pao patient not running any fever. 2cephalexin allergy that will limit the number of antibiotics safe to use. 3patient lower extremity swelling and redness has slightly decreased in intensity patient is currently on vancomycin will consider doxycycline on discharge Dictation was produced using [employer] dictation software. please excuse any grammatical, word or spelling errors.
--- NOTE | 2024-06-18 14:07 | P.PN ---
Subjective Progress Note Date: 06/18/24 No acute events. Pt resting comfortably in bed. Reporting improvement in leg pain, continues on IV abx, remains afebrile Objective - Vital Signs Vital signs: Vital Signs Temp 97.7 F 06/18/24 08:00 Pulse 90 06/18/24 08:00 Resp 18 06/18/24 08:00 BP 105/66 06/18/24 08:00 Pulse Ox 95 06/18/24 08:13 FiO2 Intake & Output 06/17/24 06/18/24 06/18/24 18:59 06:59 18:59 Intake Total 815 36 1110 Output Total 227 Balance 33 20 1020 Weight 65.9 kg Intake: IV 20 20 Invasive Line 3 20 20 Oral 240 1020 Output: Urine 225 Urine/Stool Mix 2 Other: Voiding Method Bedside Commode Toilet Toilet Urinal # Voids 2 2 1 # Bowel Movements 2 2 1 - Constitutional General appearance: Present: average body habitus, no acute distress - EENT Eyes: Present: anicteric sclerae, EOMI ENT: Present: hearing grossly normal - Respiratory Details: breathing is even and unlabored - Cardiovascular Details: skin warm and dry - Integumentary Integumentary Comment(s): BLE wrapped in bandages, edema appears to have decreased - Musculoskeletal Musculoskeletal: Present: strength equal bilaterally - Psychiatric Psychiatric: Present: A&O x's 3 - Labs CBC & Chem 7: 06/18/24 04:21 06/18/24 04:21 Labs: Abnormal Lab Results - Last 24 Hours (Table) 06/18/24 06/18/24 06/18/24 Range/Units 04:21 04:21 04:21 WBC 12.0 H (3.8-10.6) k/uL RBC 2.96 L (4.30-5.90) m/uL Hgb 9.0 L (13.0-17.5) gm/dL Hct 29.0 L (39.0-53.0) % MCHC 30.8 L (31.0-37.0) g/dL RDW 16.9 H (11.5-15.5) % Sodium 136 L (137-145) mmol/L Chloride 95 L (98-107) mmol/L Carbon Dioxide 37 H (22-30) mmol/L BUN 26 H (9-20) mg/dL Creatinine 0.59 L 0.62 L (0.66-1.25) mg/dL Glucose 114 H (74-99) mg/dL Assessment and Plan (1) Atrial fibrillation Current Visit: Yes Status: Acute Code(s): I48.91 - UNSPECIFIED ATRIAL FIBRILLATION SNOMED Code(s): 52075099 (2) Cellulitis Current Visit: Yes Status: Acute Code(s): L03.90 - CELLULITIS, UNSPECIFIED SNOMED Code(s): 084992718 (3) Altered mental status Current Visit: No Status: Acute Priority: High Code(s): R41.82 - ALTERED MENTAL STATUS, UNSPECIFIED SNOMED Code(s): 297021228 (4) Lung cancer Current Visit: No Status: Acute Priority: High Code(s): C34.90 - MALIGNANT NEOPLASM OF UNSP PART OF UNSP BRONCHUS OR LUNG SNOMED Code(s): 406005691 Plan: Afib RVR: Presented with dizziness, found to a-fib RVR -Echo obtained, with normal EF -Amiodarone started -Cardiology managing Cellulitis: -BLE cellulitis/wounds noted on exam. Right greater than left, with large wound to dorsal aspect left foot -Continues Vanco -ID and wound care following -CT left leg w/ contrast ordered to r/o deep tissue infection/osteomyelitis. Scan showed moderate to severe subcutaneous edema in the lower extremity without evidence for organizing fluid collection or for osseous erosion. Small cell lug cancer: -Oncology history and plan as dictated in HPI -Has continued on Tecentriq with stable disease -Plan is to continue on Tecentriq, however, treatment has been delayed due to recent hospitalizations. Pending course of hospitalization, will schedule to restart treatment next week -Clinic f/u upon discharge
[2024-06-18] MEDS: VANCOMYCIN 1,250 MG in SODIUM CHLORIDE 0.9% 250 ML IVPB SCH (17:01)
--- NOTE | 2024-06-18 17:36 | CDI ---
Documentation Clarification Form Date: 06/18/2024 05:11:42 PM From: Nakita Hollins RN, CCDS Phone: [phone] Admit Date: 06/11/2024 07:19:00 AM Patient Name: Royce Riddle Visit Number: [id number] Discharge Date: ATTENTION: The Clinical Documentation Specialists (CDI) and [facility] Coding Staff appreciate your assistance in clarifying documentation. Please respond to the clarification below the line at the bottom and electronically sign. The CDI & [facility] Coding staff will review the response and follow-up if needed. Please note: Queries are made part of the Legal Health Record. If you have any questions, please contact the author of this message via ITS. Doctor/Provider: Chance Laguerre Cellulitis is documented in your consult on 06/11/24 and subsequent progress notes. Additional clarification regarding the type of cellulitis is requested. History/risk factors: Hypertension, Diabetes Mellitus, Atrial Fibrillation, Lung cancer, seizure disorder, Clinical Indicators: 59-year-old male apparently the patient did have a fall also noticed increasing, edema, redness of bilateral lower extremity. He has an open ulceration to the dorsal foot blistering noted. 06/11 109/57 67 20 98.2 (AX) 90% 4/l NC WBC 7.4 HGB 12.6, BUN 46, CR 1.90, GFR 35 Treatment: Apply honey alginae to open ulcerations. Cover with gauze rolled gauze secure with tape. Wrap with anju wrap Vancomycin 1,250 MG IVPB Q 12 HRS (PTD) Please clarify the etiology of the cellulitis, if known: [ ] Cellulitis is a diabetic skin complication [x ] Cellulitis is not a diabetic skin complication [ ] Other, please specify: [ ] Unable to determine (Template Last Revised: October 2022) MTDD
--- NOTE | 2024-06-18 21:49 | PN ---
PROGRESS NOTE DATE OF SERVICE: 06/15/2024 CHIEF COMPLAINT: Shortness of breath and abdominal discomfort. HISTORY OF PRESENT ILLNESS: This gentleman is feeling quite short of breath. He is also complaining quite a bit of pain. He does have a cellulitis of the legs and of the feet. PHYSICAL EXAMINATION: CHEST: Breath sounds are somewhat diminished on both sides. CARDIAC: Demonstrates what sounds like atrial fibrillation. ABDOMEN: Slightly distended. He has mild generalized tenderness. Bowel sounds are diminished. EXTREMITIES: He has cellulitis of the lower legs. IMPRESSION: 1. New onset atrial fibrillation. 2. Abdominal pain and distention. 3. Cellulitis of the legs. 4. Ulcer on the right foot. PLAN: 1. Increase analgesics. 2. Continue management of his abdominal distention and pain. MMCAYDENL / IJN: [id number] /
[2024-06-19] MEDS: guaiFENesin 600 MG TABLET.ER PO PRN (14:09)
--- NOTE | 2024-06-19 21:48 | PN ---
PROGRESS NOTE DATE OF SERVICE: 06/16/2024 CHIEF COMPLAINT: 1. Metastatic CA of the lung. 2. Constipation. HISTORY OF PRESENT ILLNESS: This gentleman is doing fairly well. His abdominal issues have improved since he has released a large amount of stool. He is still in atrial fibrillation. PHYSICAL EXAMINATION: CHEST: Clear. CARDIAC: Normal. EXTREMITIES: He still has cellulitis of the lower extremities and ulcer on the right foot. IMPRESSION: 1. Metastatic carcinoma of the lung. 2. Constipation. 3. Atrial fibrillation. 4. Cellulitis of the legs. 5. Ulcer of the right foot. PLAN: Increase his Vicodin dosage. MMODL / IJN: [id number] /
--- NOTE | 2024-06-19 22:21 | PN ---
PROGRESS NOTE DATE OF SERVICE: 06/17/2024 CHIEF COMPLAINT: Metastatic CA of the lung. HISTORY OF PRESENT ILLNESS: This gentleman is doing fairly well. He is not having any further abdominal pain. The legs and the right foot are somewhat painful. PHYSICAL EXAMINATION: VITAL SIGNS: Normal. CHEST: Clear. CARDIAC: It sounds like he is in sinus rhythm. ABDOMEN: Soft, nontender. IMPRESSION: 1. New onset atrial fibrillation. 2. Metastatic carcinoma of the lung. 3. Constipation. 4. Cellulitis of both legs. PLAN: No change in program and waiting for discharge plan. It is not clear if he will be having to go to extended care facility or not. MMODL / IJN: [id number] /
--- NOTE | 2024-06-19 23:07 | PN ---
PROGRESS NOTE DATE OF SERVICE: 06/18/2024 CHIEF COMPLAINT: Metastatic CA with atrial fibrillation. HISTORY OF PRESENT ILLNESS: This gentleman continues to improve. The cellulitis of the legs is improved. REVIEW OF SYSTEMS: He is awake, alert, not complaining of any significant abdominal pain at this time. PHYSICAL EXAMINATION: VITAL SIGNS: Normal. GENERAL: He is chronically ill in appearance. CHEST: Breath sounds are heard bilaterally. CARDIAC: Normal. ABDOMEN: Soft and less distended. EXTREMITIES: Are the same. IMPRESSION: 1. Metastatic carcinoma. 2. Atrial fibrillation. 3. Tumor cachexia. 4. Status post constipation. 5. Cellulitis of the legs. PLAN: No change in his program at this time and discharge planning is being worked on. MOON / ZOEN: [id number] /
--- NOTE | 2024-06-20 02:54 | DS ---
DISCHARGE SUMMARY CHIEF COMPLAINT: Acute onset of atrial fibrillation with RVR. HISTORY OF PRESENT ILLNESS AND PHYSICAL EXAM: Details of this man's history and physical are found in the initial workup. LABORATORY STUDIES: Laboratory studies can be found in the laboratory section of his [place] COURSE IN HOSPITAL: After admission, he was placed on bedrest and started on management of his atrial fibrillation which converted. While he was in the hospital, he had other problems including the development of acute abdominal pain with distention and was turned out to be obstipation. He also had cellulitis of the legs, which was managed in a small ulcer on the right lateral foot. He remains very weak and discharge planning was requested. The family felt that they could take care of him at home and he was discharged on the . He will be seen in the office in several days. FINAL DIAGNOSES: 1. Acute onset of atrial fibrillation with rapid ventricular rate. 2. Metastatic carcinoma of the lung. 3. Abdominal pain. 4. Constipation. 5. Cellulitis, lower extremities. OPERATIONS: None. CONSULTATIONS: Cardiology and Oncology. MOON / NAYE: [id number] /
--- NOTE | 2024-06-20 07:40 | P.PN ---
Subjective Progress Note Date: 06/19/24 Principal diagnosis: Reason for follow-up is bilateral lower extremity cellulitis Patient is a 59-year-old male with a past medical history significant for hypertension seizure disorder atrial fibrillation metastatic lung cancer with mets to the brain patient has been brought into the hospital complaining of feeling dizzy and lightheaded, patient was noticed to have a bilateral lower extremity cellulitis prompting this consultation. On today's evaluation that is 06/19/2024,the patient denies any fever or any chills, patient is breathing comfortably on 2 L nasal oxygen, the patient complaining of some right-sided chest pain but no worsening shortness of breath and no significant cough, patient denies abdominal pain, no nausea vomiting or diarrhea. Pain and swelling to the lower extremity decreased. No new labs were obtained today blood culture has been negative Objective - Vital Signs Vital signs: Vital Signs Temp 98.1 F 06/19/24 19:32 Pulse 75 06/19/24 19:32 Resp 18 06/19/24 19:32 BP 122/76 06/19/24 19:32 Pulse Ox 91 L 06/19/24 19:32 FiO2 Intake & Output 06/19/24 06/19/24 06/20/24 06:59 18:59 06:59 Intake Total 1330 1380 Output Total 250 Balance 1330 1130 Intake: IV 10 Invasive Line 4 10 Oral 1320 1380 Output: Urine 250 Other: Voiding Method Toilet Toilet Toilet Urinal Urinal Urinal # Voids 1 2 # Bowel Movements 1 2 - Exam GENERAL DESCRIPTION: Middle-age lying in bed in no distress RESPIRATORY SYSTEM: Unlabored breathing , decreased breath sounds at bases HEART: S1 S2 regular rate and rhythm , ABDOMEN: Soft , no tenderness EXTREMITIES: Bilateral lower extremity currently wrapped no drainage on the dressing - Labs CBC & Chem 7: 06/18/24 04:21 06/18/24 04:21 Assessment and Plan (1) Bilateral lower leg cellulitis Current Visit: Yes Status: Acute Code(s): L03.116 - CELLULITIS OF LEFT LOWER LIMB; L03.115 - CELLULITIS OF RIGHT LOWER LIMB SNOMED Code(s): 535686752 (2) Allergy to cephalosporin Current Visit: Yes Status: Acute Code(s): Z88.1 - ALLERGY STATUS TO OTHER ANTIBIOTIC AGENTS SNOMED Code(s): 591244950 Plan: 1patient presented to hospital with lightheaded dizziness and apparently the patient did have a fall at home did have evidence of bilateral lower extremity swelling redness concerning for cellulitis likely from gram-positive skin pao patient not running any fever. 2cephalexin allergy that will limit the number of antibiotics safe to use. 3patient lower extremity swelling and redness decreased in intensity patient is currently covered with vancomycin trough is therapeutic will finish therapy with oral doxycycline prescription has been sent to the pharmacy Dictation was produced using [employer] dictation software. please excuse any grammatical, word or spelling errors. Time with Patient: Less than 30
[2024-06-20] MEDS: VANCOMYCIN TROUGH DUE 1 EACH MISC MISCELLANE ONE (08:09)
[2024-06-20 08:29] VITALS: RESP 20
[2024-06-20 09:50] VITALS: BMI 20.7
[2024-06-20 11:42] VITALS: BP 91/55; PULSE 62; TEMP 98
--- NOTE | 2024-06-20 22:40 | P.PN ---
Subjective Progress Note Date: 06/20/24 Principal diagnosis: Reason for follow-up is bilateral lower extremity cellulitis Patient is a 59-year-old male with a past medical history significant for hypertension seizure disorder atrial fibrillation metastatic lung cancer with mets to the brain patient has been brought into the hospital complaining of feeling dizzy and lightheaded, patient was noticed to have a bilateral lower extremity cellulitis prompting this consultation. On today's evaluation that is 06/20/2024,the patient remains to be afebrile, patient is on room air not requiring supplemental oxygen and denies any shortness of breath denies any worsening right-sided chest pain or cough.Patient denies having any nausea or vomiting, no abdominal pain and no diarrhea has been reported and pain to the lower extremity decreased in intensity. No new lab has been obtained today except the Vanco trough of 15.4 blood culture have been negative Objective - Vital Signs Vital signs: Vital Signs Temp 98 F 06/20/24 11:42 Pulse 62 06/20/24 11:42 Resp 20 06/20/24 11:42 BP 91/55 06/20/24 11:42 Pulse Ox 91 L 06/20/24 11:42 FiO2 Intake & Output 06/20/24 06/20/24 06/21/24 06:59 18:59 06:59 Intake Total 480 Output Total 200 Balance -200 480 Weight 67.5 kg 67.5 kg Intake: Oral 480 Output: Urine 200 Other: Voiding Method Toilet Urinal # Bowel Movements 1 - Exam GENERAL DESCRIPTION: Middle-age lying in bed in no distress RESPIRATORY SYSTEM: Unlabored breathing , decreased breath sounds at bases HEART: S1 S2 regular rate and rhythm , ABDOMEN: Soft , no tenderness EXTREMITIES: Bilateral lower extremity currently wrapped no drainage on the dressing - Labs CBC & Chem 7: 06/18/24 04:21 06/18/24 04:21 Assessment and Plan (1) Bilateral lower leg cellulitis Status: Acute Code(s): L03.116 - CELLULITIS OF LEFT LOWER LIMB; L03.115 - CELLULITIS OF RIGHT LOWER LIMB SNOMED Code(s): 568986085 (2) Allergy to cephalosporin Status: Acute Code(s): Z88.1 - ALLERGY STATUS TO OTHER ANTIBIOTIC AGENTS SNOMED Code(s): 255075363 Plan: 1patient presented to hospital with lightheaded dizziness and apparently the patient did have a fall at home did have evidence of bilateral lower extremity swelling redness concerning for cellulitis likely from gram-positive skin pao patient not running any fever. 2cephalexin allergy that will limit the number of antibiotics safe to use. Patient did have improvement lower extremity cellulitis he will be able to finish therapy with oral doxycycline prescription has been sent to the pharmacy Dictation was produced using [employer] dictation software. please excuse any grammatical, word or spelling errors. Time with Patient: Less than 30
--- NOTE | 2024-06-22 10:22 | PN ---
PROGRESS NOTE DATE OF SERVICE: 06/20/2024 CHIEF COMPLAINT: Atrial fibrillation, metastatic CA of the lung and cellulitis of the legs. HISTORY OF PRESENT ILLNESS: This gentleman is improving and we are working on a discharge plan. He may be able to be discharged. Apparently, the family is thinking about taking him home again. PHYSICAL EXAMINATION: GENERAL: He is awake and alert. He is very weak. He is oriented. He is not having any abdominal pain now. CHEST: Clear. CARDIAC: Normal. ABDOMEN: Less distended and not tender. Bowel sounds are present. EXTREMITIES: Cellulitis of the legs is improved. IMPRESSION: 1. Atrial fibrillation. 2. Metastatic carcinoma of the lung. 3. Cellulitis of lower extremities. PLAN: Probably home soon. He may be going home with family. MMODL / IJN: [id number] /
== END 2024-06-20 13:13 | disposition home health service (06) | DRG 201 ==
LOC: EC 04:28 → 3SCARD 07:19
PROVIDERS: ADMIT Family Medicine; ATTEND Family Medicine
DX: I48.0 Paroxysmal atrial fibrillation (principal); I31.39 Other pericardial effusion (noninflammatory); I45.10 Unspecified right bundle-branch block; K59.00 Constipation, unspecified; L03.115 Cellulitis of right lower limb; L03.116 Cellulitis of left lower limb; L97.522 Non-pressure chronic ulcer of other part of left foot with fat layer exposed; L97.512 Non-pressure chronic ulcer of other part of right foot with fat layer exposed; I10 Essential (primary) hypertension; R64 Cachexia; C34.90 Malignant neoplasm of unspecified part of unspecified bronchus or lung; C79.31 Secondary malignant neoplasm of brain; F17.200 Nicotine dependence, unspecified, uncomplicated; M48.02 Spinal stenosis, cervical region; E46 Unspecified protein-calorie malnutrition; Z68.20 Body mass index [BMI] 20.0-20.9, adult; Z79.82 Long term (current) use of aspirin; Z79.899 Other long term (current) drug therapy; Z92.21 Personal history of antineoplastic chemotherapy; Z88.1 Allergy status to other antibiotic agents; Z92.3 Personal history of irradiation; Z98.1 Arthrodesis status; Z91.81 History of falling
CPT/HCPCS: 36415; 71045; 74019; 74177; 80048; 80053; 80202; 81003; 82565; 83735; 84132; 84145; 84484; 85025; 85027; 85610; 85730; 86140; 87040; 93005; 93308; 94760; 96361; 96365; 96368; 96375; 99285

== ENCOUNTER 2024-07-05 11:25 | Emergency (ER) | payer OTHER ==
[2024-07-05 11:33] VITALS: TEMP 97.8
[2024-07-05 12:47] VITALS: RESP 18
--- NOTE | 2024-07-05 13:00 | ED ---
General Adult HPI - General Chief complaint: Arrhythmia/Palpitations Stated complaint: Afib Time Seen by Provider: 07/05/24 11:34 Source: patient, family, RN notes reviewed, old records reviewed Mode of arrival: ambulatory Limitations: no limitations - History of Present Illness Initial comments: 59-year-old male presenting with need for medication refill. Patient recently diagnosed with atrial fibrillation and is currently on loading dose of amiodarone. He had gone to the primary care office and the midlevel provider had seen that the patient was in atrial fibrillation and sent the patient to the emergency department. Patient is in rate controlled A-fib without complaint. - Related Data Home Medications Medication Instructions Recorded Confirmed Albuterol Inhaler [Ventolin Hfa 1 puff INHALATION RT-QID PRN 11/07/23 06/11/24 Inhaler] buprenorphine HCL [Subutex] 8 mg PO BID 11/07/23 06/11/24 Aspirin 81 mg PO DAILY 04/08/24 06/11/24 levETIRAcetam [Keppra] 1,000 mg PO BID 04/08/24 06/11/24 Furosemide [Lasix] 40 mg PO DAILY 06/11/24 06/11/24 Mupirocin 2% Oint [Bactroban 2% 1 applic TOPICAL BID 06/11/24 06/11/24 Oint] dexAMETHasone 2 mg PO DAILY 06/11/24 06/11/24 Previous Rx's Medication Instructions Recorded Metoprolol Succinate (ER) [Toprol 100 mg PO BID #60 tab 04/25/23 XL] Amoxic-Pot Clav 875-125Mg 1 tab PO BID 5 Days #10 tab 04/12/24 [Augmentin 875-125] Amiodarone [Cordarone] 400 mg PO BID #60 tab 06/19/24 Doxycycline Hyclate 100 mg PO BID #14 cap 06/19/24 polyethylene glycoL 3350 [Miralax] 17 gm PO TID 30 Days #1 dispenser 06/19/24 Amiodarone [Cordarone] 200 mg PO DAILY 30 Days #30 tab 07/05/24 Allergies Allergy/AdvReac Type Severity Reaction Status Date / Time cephalexin [From Keflex] Allergy Confusion, Verified 06/11/24 09:38 dizziness and syncope Review of Systems ROS Statement: Those systems with pertinent positive or pertinent negative responses have been documented in the HPI. ROS Other: All systems not noted in ROS Statement are negative. Past Medical History Past Medical History: Atrial Fibrillation, Hypertension, Seizure Disorder Additional Past Medical History / Comment(s): bowel obstruction, cervical spinal stenosis, lung cancer with brain metastases, seizure 11/26/22. History of Any Multi-Drug Resistant Organisms: None Reported Past Surgical History: Back Surgery Additional Past Surgical History / Comment(s): Colostomy and reverse colostomy, L4-L5 fusion, brain surgery Past Anesthesia/Blood Transfusion Reactions: No Reported Reaction Past Psychological History: No Psychological Hx Reported Smoking Status: Current every day smoker Past Alcohol Use History: None Reported Past Drug Use History: Marijuana - Past Family History Mother Family Medical History: Cancer, Hypertension Additional Family Medical History / Comment(s): lung CA Father Family Medical History: Diabetes Mellitus General Exam Limitations: no limitations General appearance: alert, in no apparent distress Head exam: Present: atraumatic, normocephalic Eye exam: Present: normal appearance, PERRL ENT exam: Present: normal exam Neck exam: Present: normal inspection. Absent: tenderness, meningismus Respiratory exam: Present: normal lung sounds bilaterally. Absent: respiratory distress, wheezes Cardiovascular Exam: Present: regular rate, irregular rhythm GI/Abdominal exam: Present: soft. Absent: distended, tenderness, guarding Extremities exam: Present: normal inspection Neurological exam: Present: alert Skin exam: Present: warm, dry, intact Course Vital Signs 07/05/24 07/05/24 07/05/24 11:31 11:44 12:45 Temperature 97.8 F Pulse Rate 73 67 Pulse Rate [ 74 Patient Access ] Respiratory 20 18 Rate Blood Pressure 102/69 107/79 O2 Sat by Pulse 96 95 Oximetry Medical Decision Making - Medical Decision Making Was pt. sent in by a medical professional or institution (, PA, SENIOR PATIENT ACCOUNT REPRESENTATIVE, urgent care, hospital, or prison...) When possible be specific @ -No Did you speak to anyone other than the patient for history (EMS, parent, family, police, friend...)? What history was obtained from this source @ -No Did you review nursing and triage notes (agree or disagree)? Why? @ -I reviewed and agree with nursing and triage notes Were old charts reviewed (outside hosp., previous admission, EMS record, old EKG, old radiological studies, urgent care reports/EKG's, prison records)? Report findings @ -No old charts were reviewed Differential Palpitations Ventricular arrhythmias, atrial arrhythmias, myocardial infarction, anemia, thyrotoxicosis, electrolyte imbalance, hypokalemia, pulmonary embolism, pulmonary disease, drugs, alcohol, anxiety, stress.... This is not meant to be an all-inclusive list. EKG interpreted by me (3pts min.). @ -Atrial fibs versus atrial flutter rate of 75, QRS duration 164, QTc 474 X-rays interpreted by me (1pt min.). @ -None done CT interpreted by me (1pt min.). @ -None done U/S interpreted by me (1pt. min.). @ -None done What testing was considered but not performed or refused? (CT, X-rays, U/S, labs)? Why? @ -None What meds were considered but not given or refused? Why? @ -None Did you discuss the management of the patient with other professionals (professionals i.e. , PA, SENIOR PATIENT ACCOUNT REPRESENTATIVE, lab, RT, psych nurse, social science manager, solutions sales executive, teacher, executive officer, case assistant)? Give summary @ -Case discussed with Dr. Byers who is agreeable with medication refill, case discussed with Dr. Armando covering for cardiology recommends 200 mg of amiodarone daily Was smoking cessation discussed for >3mins.? @ -No Was critical care preformed (if so, how long)? @ -No Were there social determinants of health that impacted care today? How? (Homelessness, low income, unemployed, alcoholism, drug addiction, transpor tation, low edu. Level, literacy, decrease access to med. care, snf, rehab)? @ -No Was there de-escalation of care discussed even if they declined (Discuss DNR or withdrawal of care, Hospice)? DNR status @ -No What co-morbidities impacted this encounter? (DM, HTN, Smoking, COPD, CAD, Cancer, CVA, ARF, Chemo, Hep., AIDS, mental health diagnosis, sleep apnea, morbid obesity)? @ -None Was patient admitted / discharged? Hospital course, mention meds given and route, prescriptions, significant lab abnormalities, going to OR and other pertinent info. @ -[medication refill, patient stable for discharge Undiagnosed new problem with uncertain prognosis? @ -No Drug Therapy requiring intensive monitoring for toxicity (Heparin, Nitro, Insulin, Cardizem)? @ -No Were any procedures done? @ -No Diagnosis/symptom? @ -Medication refill Acute, or Chronic, or Acute on Chronic? @ -Acute Uncomplicated (without systemic symptoms) or Complicated (systemic symptoms)? @ -Default Side effects of treatment? @ -No Exacerbation, Progression, or Severe Exacerbation? @ -No Poses a threat to life or bodily function? How? (Chest pain, [place], [place], pneumonia, PE, COPD, DKA, ARF, appy, cholecystitis, CVA, Diverticulitis, Homicidal, Suicidal, threat to staff... and all critical care pts) @ -No Disposition Clinical Impression: Atrial fibrillation Disposition: HOME SELF-CARE Condition: Fair Instructions (If sedation given, give patient instructions): A-fib (Atrial Fibrillation) (ED) Prescriptions: Amiodarone [Cordarone] 200 mg PO DAILY 30 Days #30 tab Is patient prescribed a controlled substance at d/c from ED?: No Referrals: Cristian Byers MD [Primary Care Provider] - 1-2 days
[2024-07-05 14:35] VITALS: BP 125/83; PULSE 78
== END 2024-07-05 14:35 | disposition home or self-care (01) ==
LOC: EC 11:25
DX: I48.91 Unspecified atrial fibrillation
CPT/HCPCS: 99284

== ENCOUNTER → 2024-08-05 | Outpatient (CLI) | payer OTHER ==
[2024-08-05 15:29] LABS: African American GFR (CKD) 89 (>60 ml/min/1.73 sqM); Blood Urea Nitrogen 46 mg/dL (9-20); Non-African American GFR(CKD) 77 (>60 ml/min/1.73 sqM)
--- NOTE | 2024-08-05 19:43 | CT ---
EXAMINATION TYPE: CT chest w con DATE OF EXAM: 08/05/2024 5:15 PM COMPARISON: 10/23/2023. CLINICAL INDICATION: Male, 59 years old with history of C34.90 LUNG CANCER; [facility], lung cancer TECHNIQUE: Multiple axial images were obtained through the chest. Sagittal and coronal reformats were created for review. MIP was performed on a separate workstation. Contrast used:100 mL of Isovue 300 with IV Contrast (None if empty) Oral contrast used: (None if empty) CT DLP: 231.4 mGycm, Automated exposure control for dose reduction was used. FINDINGS: LUNGS/ PLEURA: Scattered mild to moderate centrilobular emphysema changes. Ground glass opacity in ri ght upper lung. And morphology AIRWAY: Patent and unremarkable. HEART: Size within normal limits. MEDIASTINUM: No gross evidence of adenopathy. VASCULATURE: No aortic aneurysm. MUSCULOSKELETAL: No acute osseous abnormalities SOFT TISSUES/LYMPH NODES: Unremarkable. LOWER NECK: No significant findings. UPPER ABDOMEN: No significant findings. IMPRESSION: Stable morphology to the lungs compared to prior 10/23/2023 continued attention on surveil kieran imaging. No lymphadenopathy identified. [facility], , 08/05/2024 7:41 PM
== END | disposition home or self-care (01) ==
LOC: RADCTMAIN 14:51
PROVIDERS: ATTEND Internal Medicine
DX: C34.91 Malignant neoplasm of unspecified part of right bronchus or lung (principal); I48.91 Unspecified atrial fibrillation
CPT/HCPCS: 82565; 84520; 71260; 36415; Q9967

== ENCOUNTER → 2024-08-06 | Outpatient (CLI) | payer OTHER ==
--- NOTE | 2024-08-07 18:38 | US ---
EXAMINATION TYPE: US kidneys/renal and bladder DATE OF EXAM: 08/06/2024 COMPARISON: 06/13/24 CLINICAL INDICATION: Male, 59 years old with history of R94.4 GROSS HEMATURIA N18.9 Chronic kidney di sease; Hx HTN; Pre DM; Low back pain; Hx taken from nephew TECHNIQUE: Grayscale imaging of the bilateral kidneys and urinary bladder: FINDINGS: EXAM MEASUREMENTS: Right Kidney: 9.9x6.1x4.2 cm Left Kidney: 9.1x5.4x4.6 cm Post Void Residual Volume: na mL Right Kidney: wnl, no evidence for hydronephrosis, mass or renal calculus; anechoic structure seen UP may be a simple cyst Left Kidney: wnl, no evidence for hydronephrosis, mass or renal calculus.; ? anechoic vs hypoechoic s tructure = 2.1x1.6x1.3cm , too small to reliably classify. Bladder: wnl Bilateral Jets seen: yes Normal Post Void Residual: na IMPRESSION: 1. Bilateral renal cysts [facility], , 08/07/2024 6:36 PM
== END | disposition home or self-care (01) ==
LOC: RADUSWWP 14:06
PROVIDERS: ATTEND Family Medicine
DX: N18.9 Chronic kidney disease, unspecified (principal); N28.1 Cyst of kidney, acquired; R94.4 Abnormal results of kidney function studies
CPT/HCPCS: 76770

== ENCOUNTER 2024-11-12 11:58 | Inpatient (IN) | payer OTHER ==
[2024-11-12] MEDS ORDERED: VANCOMYCIN IV PER PHARMACY 1 EACH MISC MISCELLANE PRN (12:22)
[2024-11-12 12:45] LABS: VBG PH 7.33 (7.31-7.41)
[2024-11-12] MEDS: SODIUM CHLORIDE 0.9% 500 ML 500 ML IV SCH (12:52)
[2024-11-12 12:55] LABS: Anisocytosis Slight; Basophils # (A) 0.1 k/uL (0-0.2); Basophils % (A) 1 %; Eosinophils # (A) 0.2 k/uL (0-0.7); Eosinophils % (A) 2 %; HCT 43.9 % (39.0-53.0); HGB 14.8 gm/dL (13.0-17.5); Lymphocytes # (A) 1.1 k/uL (1.0-4.8); Lymphocytes % (A) 12 %; MCH 30.6 pg (25.0-35.0); MCHC 33.8 g/dL (31.0-37.0); MCV 90.7 fL (80.0-100.0); Mean Platelet Volume 7.7; Monocytes # (A) 0.8 k/uL (0-1.0); Monocytes % (A) 8 %; Neutrophils # (A) 6.9 k/uL (1.3-7.7); Neutrophils % (A) 73 %; Partial Thromboplastin Time 25.6 sec (22.0-30.0); Platelet Count 316 k/uL (150-450); Poikilocytosis Slight; Prothrombin Time 11.3 sec (10.0-12.5); RBC 4.84 m/uL (4.30-5.90); RDW 17.1 % (11.5-15.5); WBC 9.6 k/uL (3.8-10.6)
[2024-11-12] MEDS: VANCOMYCIN 1,250 MG in SODIUM CHLORIDE 0.9% 250 ML IVPB ONE (12:59)
[2024-11-12 13:02] LABS: ALT 17 U/L (4-49); AST 36 U/L (17-59); African American GFR (CKD) 77 (>60 ml/min/1.73 sqM); Albumin 3.7 g/dL (3.5-5.0); Alkaline Phosphatase 68 U/L (38-126); Anion Gap 17 mmol/L; Blood Urea Nitrogen 59 mg/dL (9-20); Calcium 9.6 mg/dL (8.4-10.2); Carbon Dioxide 22 mmol/L (22-30); Chloride 103 mmol/L (98-107); Glucose 96 mg/dL (74-99); Non-African American GFR(CKD) 66 (>60 ml/min/1.73 sqM); Sodium 142 mmol/L (137-145); Total Bilirubin 0.4 mg/dL (0.2-1.3); Total Protein 6.2 g/dL (6.3-8.2)
--- NOTE | 2024-11-12 13:10 | ED ---
General Adult HPI - General Chief complaint: Skin/Abscess/Foreign Body Stated complaint: L arm sore Time Seen by Provider: 11/12/24 12:00 Source: patient, RN notes reviewed, old records reviewed Mode of arrival: wheelchair Limitations: no limitations - History of Present Illness Initial comments: This is a 59-year-old male who presents to the emergency department the past medical history significant for lung cancer brain cancer and wounds on his legs. According to Dr. Arana who sent him down for the wounds of the wounds in his legs do not look infected however he does have a elbow that is red and hot and Dr. Arana has taken a culture from that elbow and he states that came back with MRSA. Patient showed up at the wound center today and Dr. Arana thought the patient looked a lot worse than his baseline and possibly was septic. Patient himself appears a little confused he is alert and oriented x 2 family was called family stated that he was more confused than normal for the last 3 days. - Related Data Home Medications Medication Instructions Recorded Confirmed Albuterol Inhaler [Ventolin Hfa 2 puff INHALATION RT-QID PRN 11/07/23 11/12/24 Inhaler] buprenorphine HCL [Subutex] 8 mg PO BID 11/07/23 11/12/24 Aspirin 81 mg PO DAILY 04/08/24 11/12/24 Furosemide [Lasix] 40 mg PO DAILY 06/11/24 11/12/24 Amiodarone HCl [Pacerone] 100 mg PO DAILY 11/12/24 11/12/24 Apixaban [Eliquis] 5 mg PO BID 11/12/24 11/12/24 Hydrocortisone [Cortef] 20 mg PO BID 11/12/24 11/12/24 Potassium Chloride [Klor-Con M20] 20 meq PO TID 11/12/24 11/12/24 Sulfamethoxazole/Trimethoprim 1 tab PO BID 11/12/24 11/12/24 [Bactrim DS 800-160 mg] dexAMETHasone 2 mg PO DAILY 11/12/24 11/12/24 levETIRAcetam [Keppra] 1,000 mg PO Q12HR 11/12/24 11/12/24 Allergies Allergy/AdvReac Type Severity Reaction Status Date / Time cephalexin [From Keflex] AdvReac Confusion, Verified 11/12/24 13:31 dizziness and syncope Review of Systems ROS Statement: Those systems with pertinent positive or pertinent negative responses have been documented in the HPI. ROS Other: All systems not noted in ROS Statement are negative. Past Medical History Past Medical History: Atrial Fibrillation, Hypertension, Seizure Disorder Additional Past Medical History / Comment(s): bowel obstruction, cervical spinal stenosis, lung cancer with brain metastases, seizure 11/26/22. History of Any Multi-Drug Resistant Organisms: MRSA Date of last positivie culture/infection: 11/05/24 MDRO Source:: left elbow Past Surgical History: Back Surgery Additional Past Surgical History / Comment(s): Colostomy and reverse colostomy, L4-L5 fusion, brain surgery Past Anesthesia/Blood Transfusion Reactions: No Reported Reaction Past Psychological History: No Psychological Hx Reported Smoking Status: Current every day smoker Past Alcohol Use History: None Reported Past Drug Use History: Marijuana - Past Family History Mother Family Medical History: Cancer, Hypertension Additional Family Medical History / Comment(s): lung CA Father Family Medical History: Diabetes Mellitus General Exam - General Exam Comments Initial Comments: GENERAL: Patient is well-developed and well-nourished. Patient is nontoxic and well- hydrated and is in mild distress. ENT: Neck is soft and supple. No significant lymphadenopathy is noted. Oropharynx is clear. Moist mucous membranes. Neck has full range of motion without eliciting any pain. EYES: The sclera were anicteric and conjunctiva were pink and moist. Extraocular movements were intact and pupils were equal round and reactive to light. Eyelids were unremarkable. PULMONARY: Unlabored respirations. Good breath sounds bilaterally. No audible rales rhonchi or wheezing was noted. CARDIOVASCULAR: There is a regular rate and rhythm without any murmurs gallops or rubs. ABDOMEN: Soft and nontender with normal bowel sounds. SKIN: Skin is clear with no lesions or rashes and otherwise unremarkable. NEUROLOGIC: Patient is alert and oriented x 2. Cranial nerves II through XII are grossly intact. Motor and sensory are also intact. Normal speech, volume and content. Symmetrical smile. MUSCULOSKELETAL: Left elbow is swollen red hot and painful to touch LYMPHATICS: No significant lymphadenopathy is noted PSYCHIATRIC: Normal psychiatric evaluation. Limitations: no limitations Course Vital Signs 11/12/24 11/12/24 12:01 12:30 Temperature 97.6 F Pulse Rate 76 82 Respiratory 22 22 Rate Blood Pressure 88/54 137/84 O2 Sat by Pulse 91 L 97 Oximetry Medical Decision Making - Medical Decision Making EKG is interpreted by myself but EKG shows atrial fibrillation 81 bpm QRS is 158 QT interval is 375 QTc is 412. Patient's EKG shows a right bundle branch block. Patient does have ST segment elevation in lead III but no other lead. Was pt. sent in by a medical professional or institution (, PA, ACTIVITY THERAPY TEACHER, urgent care, hospital, or group home...) When possible be specific @ -Patient was sent in from the wound center by Dr. Liu Did you speak to anyone other than the patient for history (EMS, parent, family, police, friend...)? What history was obtained from this source @ -I spoke with Dr. Arana prior to the patient's arrival and he filled me in on the patient's history and why he is sending the patient Did you review nursing and triage notes (agree or disagree)? Why? @ -I reviewed and agree with nursing and triage notes Were old charts reviewed (outside hosp., previous admission, EMS record, old EKG, old radiological studies, urgent care reports/EKG's, group home records)? Report findings @ -No old charts were reviewed Differential Diagnosis? @ -Differential Altered Mental Status: Hypoglycemia, DKA, hypercapnia, ETOH, overdose, CO poisoning, trauma, myxedema coma, HTN encephalopathy, infection, encephalitis, psychosis, intercranial hemorrhage, hepatic encephalopathy, meningitis, CVA, this is not meant to be an all-inclusive list EKG interpreted by me (3pts min.). @ -As above X-rays interpreted by me (1pt min.). @ -None done CT interpreted by me (1pt min.). @ -CT of the brain shows no acute abnormality U/S interpreted by me (1pt. min.). @ -None done What testing was considered but not performed or refused? (CT, X-rays, U/S, labs)? Why? @ -None What meds were considered but not given or refused? Why? @ -None Did you discuss the management of the patient with other professionals (michaela cage i.e. , ELVIN, ACTIVITY THERAPY TEACHER, lab, RT, psych nurse, social services designee, hand touch up painter, teacher, customs patrol officer, case worker)? Give summary @ -I spoke with Dr. Nash and he agreed to admit the patient admit the patient would have an ERCP I spoke with Dr. Arana prior to the patient's arrival and he gave me the most recent history Was smoking cessation discussed for >3mins.? @ -No Was critical care preformed (if so, how long)? @ -35 minutes Were there social determinants of health that impacted care today? How? (Homelessness, low income, unemployed, alcoholism, drug addiction, transportation, low edu. Level, literacy, decrease access to med. care, assisted, rehab)? @ -No Was there de-escalation of care discussed even if they declined (Discuss DNR or withdrawal of care, Hospice)? DNR status @ -No What co-morbidities impacted this encounter? (DM, HTN, Smoking, COPD, CAD, Cancer, CVA, ARF, Chemo, Hep., AIDS, mental health diagnosis, sleep apnea, morbid obesity)? @ -None Was patient admitted / discharged? Hospital course, mention meds given and route, prescriptions, significant lab abnormalities, going to OR and other pertinent info. @ -Patient received vancomycin for septic olecranon bursitis with MRSA. Patient continued to be very fatigued he refuses to lay back in bed he wants to lean forward because he says it makes his back feel better. Patient had a potassium of 1.8 and I started replacement. Undiagnosed new problem with uncertain prognosis? @ -No Drug Therapy requiring intensive monitoring for toxicity (Heparin, Nitro, Insulin, Cardizem)? @ -No Were any procedures done? @ -No Diagnosis/symptom? @ -Hypokalemia Acute, or Chronic, or Acute on Chronic? @ -Acute Uncomplicated (without systemic symptoms) or Complicated (systemic symptoms)? @ -Complicated Side effects of treatment? @ -No Exacerbation, Progression, or Severe Exacerbation? @ -No Poses a threat to life or bodily function? How? (Chest pain, [place], [place], pneumonia, PE, COPD, DKA, ARF, appy, cholecystitis, CVA, Diverticulitis, Homicidal, Suicidal, threat to staff... and all critical care pts) @ -Yes this can lead to an arrhythmia and potential Diagnosis/symptom? @ -Altered mental status Acute, or Chronic, or Acute on Chronic? @ -Acute Uncomplicated (without systemic symptoms) or Complicated (systemic symptoms)? @ -Complicated Side effects of treatment? @ -None Exacerbation, Progression, or Severe Exacerbation] @ -No Poses a threat to life or bodily function? @ -No Diagnosis/symptom? @ -Septic olecranon bursitis Acute, or Chronic, or Acute on Chronic? @ -Acute Uncomplicated (without systemic symptoms) or Complicated (systemic symptoms)? @ -Default Side effects of treatment? @ -None Exacerbation, Progression, or Severe Exacerbation] @ -No Poses a threat to life or bodily function? @ -Yes this can lead to sepsis and endorgan dysfunction - Lab Data Result diagrams: 11/12/24 12:28 11/12/24 12: Lab Results 11/12/24 11/12/24 11/12/24 Range/Units 12: 12: 12: WBC 9.6 (3.8-10.6) k/uL RBC 4.84 (4.30-5.90) m/uL Hgb 14.8 (13.0-17.5) gm/dL Hct 43.9 (39.0-53.0) % MCV 90.7 (80.0-100.0) fL MCH 30.6 (25.0-35.0) pg MCHC 33.8 (31.0-37.0) g/dL RDW 17.1 H (11.5-15.5) % Plt Count 316 (150-450) k/uL MPV 7.7 Neutrophils % 73 % Lymphocytes % 12 % Monocytes % 8 % Eosinophils % 2 % Basophils % 1 % Neutrophils # 6.9 (1.3-7.7) k/uL Lymphocytes # 1.1 (1.0-4.8) k/uL Monocytes # 0.8 (0-1.0) k/uL Eosinophils # 0.2 (0-0.7) k/uL Basophils # 0.1 (0-0.2) k/uL Poikilocytosis Slight Anisocytosis Slight PT 11.3 (10.0-12.5) sec INR 1.0 (<1.2) APTT 25.6 (22.0-30.0) sec VBG pH 7.33 (7.31-7.41) VBG pCO2 47 (37-51) mmHg VBG HCO3 25 (24-28) mmol/L Sodium (137-145) mmol/L Potassium (3.5-5.1) mmol/L Chloride (98-107) mmol/L Carbon Dioxide (22-30) mmol/L Anion Gap mmol/L BUN (9-20) mg/dL Creatinine (0.66-1.25) mg/dL Est GFR (CKD-EPI)AfAm (>60 ml/min/1.73 sqM) Est GFR (CKD-EPI)NonAf (>60 ml/min/1.73 sqM) Glucose (74-99) mg/dL Plasma Lactic Acid Ross (0.7-2.0) mmol/L Calcium (8.4-10.2) mg/dL Total Bilirubin (0.2-1.3) mg/dL AST (17-59) U/L ALT (4-49) U/L Alkaline Phosphatase (38-126) U/L Total Protein (6.3-8.2) g/dL Albumin (3.5-5.0) g/dL Urine Color Urine Appearance (Clear) Urine pH (5.0-8.0) Ur Specific Grimsley (1.001-1.035) Urine Protein (Negative) Urine Glucose (UA) (Negative) Urine Ketones (Negative) Urine Blood (Negative) Urine Nitrite (Negative) Urine Bilirubin (Negative) Urine Urobilinogen (<2.0) mg/dL Ur Leukocyte Esterase (Negative) Urine RBC (0-5) /hpf Ur Squamous Epith Cells (0-4) /hpf 11/12/24 11/12/24 11/12/24 Range/Units 12:28 12:28 14:40 WBC (3.8-10.6) k/uL RBC (4.30-5.90) m/uL Hgb (13.0-17.5) gm/dL Hct (39.0-53.0) % MCV (80.0-100.0) fL MCH (25.0-35.0) pg MCHC (31.0-37.0) g/dL RDW (11.5-15.5) % Plt Count (150-450) k/uL MPV Neutrophils % % Lymphocytes % % Monocytes % % Eosinophils % % Basophils % % Neutrophils # (1.3-7.7) k/uL Lymphocytes # (1.0-4.8) k/uL Monocytes # (0-1.0) k/uL Eosinophils # (0-0.7) k/uL Basophils # (0-0.2) k/uL Poikilocytosis Anisocytosis PT (10.0-12.5) sec INR (<1.2) APTT (22.0-30.0) sec VBG pH (7.31-7.41) VBG pCO2 (37-51) mmHg VBG HCO3 (24-28) mmol/L Sodium 142 (137-145) mmol/L Potassium 1.8 L* (3.5-5.1) mmol/L Chloride 103 (98-107) mmol/L Carbon Dioxide 22 (22-30) mmol/L Anion Gap 17 mmol/L BUN 59 H (9-20) mg/dL Creatinine 1.20 (0.66-1.25) mg/dL Est GFR (CKD-EPI)AfAm 77 (>60 ml/min/1.73 sqM) Est GFR (CKD-EPI)NonAf 66 (>60 ml/min/1.73 sqM) Glucose 96 (74-99) mg/dL Plasma Lactic Acid Ross 0.8 (0.7-2.0) mmol/L Calcium 9.6 (8.4-10.2) mg/dL Total Bilirubin 0.4 (0.2-1.3) mg/dL AST 36 (17-59) U/L ALT 17 (4-49) U/L Alkaline Phosphatase 68 (38-126) U/L Total Protein 6.2 L (6.3-8.2) g/dL Albumin 3.7 (3.5-5.0) g/dL Urine Color Colorless Urine Appearance Clear (Clear) Urine pH 6.5 (5.0-8.0) Ur Specific Grimsley 1.014 (1.001-1.035) Urine Protein 1+ H (Negative) Urine Glucose (UA) Negative (Negative) Urine Ketones Negative (Negative) Urine Blood Small H (Negative) Urine Nitrite Negative (Negative) Urine Bilirubin Negative (Negative) Urine Urobilinogen <2.0 (<2.0) mg/dL Ur Leukocyte Esterase Negative (Negative) Urine RBC 2 (0-5) /hpf Ur Squamous Epith Cells <1 (0-4) /hpf Disposition Clinical Impression: Hypokalemia, Altered mental status Disposition: ADMITTED IP TO THIS HOSP Referrals: Cristian Byers MD [Primary Care Provider] - 1-2 days Time of Disposition: 15:26
[2024-11-12 13:14] LABS: Potassium 1.8 mmol/L (3.5-5.1)
--- NOTE | 2024-11-12 13:43 | CT ---
EXAMINATION TYPE: CT brain wo con DATE OF EXAM: 11/12/2024 COMPARISON: 05/13/2024 CLINICAL INDICATION: Male, 59 years old with history of Altered mental status; PHH, AMS CT DLP: 1154.4 mGycm Automated exposure control for dose reduction was used. Findings: The ventricles, basal cisterns and sulci convexities are within normal limits and there is no mass ef fect or shift in midline structures There are stable areas of encephalomalacia and calcification in the posterior right parietal lobe pos terior left parietal occipital lobe. There is a craniotomy defect posteriorly. There is moderate increased density in the periventricular white matter consistent with chronic ische rafy white matter demyelination. There is no acute intra or extra-axial hemorrhage. Posterior fossa is grossly normal. The intraorbital contents appear normal and symmetric. The paranasal sinuses and mastoid air cells are well aerated. IMPRESSION: 1. No acute bleed or mass effect. 2. Postsurgical changes in the posterior right parietal and posterior left parietal-occipital lobes w ith craniotomy. [facility], Workstation: [employer] 11/12/2024 1:40 PM
[2024-11-12 14:50] LABS: Appearance,Urine Clear (Clear); Bilirubin,Urine Negative (Negative); Blood,Urine Small (Negative); Color,Urine Colorless; Glucose,Urine (UA) Negative (Negative); Ketones,Urine Negative (Negative); Leukocyte Esterase,Urine Negative (Negative); Nitrite,Urine Negative (Negative); PH, Urine 6.5 (5.0-8.0); Protein,Urine 1+ (Negative); RBC,Urine 2 /hpf (0-5); Specific Gravity,Urine 1.014 (1.001-1.035); Squamous Epithelial Cell,Urine <1 /hpf (0-4); Urobilinogen,Urine <2.0 mg/dL (<2.0)
[2024-11-12] MEDS: POTASSIUM CHLORIDE ER 20 MEQ TAB.ER PO STA (14:56)
[2024-11-12] MEDS: POTASSIUM CHLORIDE 20 MEQ in WATER FOR INJECTION 1 100ML.BAG IVPB STA (14:57)
[2024-11-12] MEDS ORDERED: Potassium Replacement Protocol 1 EACH MISC MISCELLANE PRN (15:32)
[2024-11-12] MEDS: KETOROLAC 15 MG/ML 1 ML VIAL IVP STA (15:46)
[2024-11-12] MEDS: SODIUM CHLORIDE 0.9% 1,000 ML IV ONE ×2 (15:47→15:52)
[2024-11-12] MEDS ORDERED: ALBUTEROL HFA INHALER INHALATION PRN (15:56)
[2024-11-12] MEDS: ACETAMINOPHEN IV (For NPO) 1,000 MG in EMPTY BAG 1 BAG IVPB STA (17:16)
[2024-11-12] MEDS: Buprenorphine Hcl [Subutex] 8 MG Tab.Subl PO SCH (17:48)
[2024-11-12] MEDS: POTASSIUM CHLORIDE 10 MEQ in WATER FOR INJECTION 1 100ML.BAG IVPB SCH ×2 (17:50→23:35)
[2024-11-12] MEDS: HYDROCORTISONE 20 MG TAB PO SCH (20:07)
[2024-11-12] MEDS: levETIRAcetam 500 MG TAB PO SCH (20:52)
[2024-11-12] MEDS ORDERED: APIXABAN 5 MG TAB PO SCH (21:00)
[2024-11-12] MEDS: levETIRAcetam IV 500 MG/5 ML VIAL IVP SCH (21:59)
[2024-11-12] MEDS: methylPREDNISolone SOD SUCCI 125 MG/2 ML VIAL IV SCH (23:30)
[2024-11-13] MEDS: VANCOMYCIN 1,250 MG in SODIUM CHLORIDE 0.9% 250 ML IVPB SCH (00:06)
[2024-11-13] MEDS: POTASSIUM CHLORIDE 10 MEQ in WATER FOR INJECTION 1 100ML.BAG IVPB SCH (05:02)
--- NOTE | 2024-11-13 07:36 | P.CONS ---
History of Present Illness - Reason for Consult Consult date: 11/12/24 Left elbow septic olecranon bursitis Requesting physician: Ravi Fam - Chief Complaint Increasing pain swelling redness to the left elbow x days - History of Present Illness Patient is a 59-year-old male with a past medical history significant for hypertension seizure disorder atrial fibrillation he did have a metastatic lung cancer and apparently has been dealing with multiple wounds to the lower extremity and to the left elbow waiting for the patient to follow at [facility] wound care jean patient recently did have a cultures obtained from the left e lbow area which did grew MRSA and on evaluation at the wound care center today patient was noticed to have a extensive swelling and redness to the left ankle concerning for septic colitis for the patient was sent to the ER history has been obtained mostly from the chart as well as from the family the bedside apparently patient noted to have increasing swelling redness to the left for the last few days patient complaining of pain excruciating but unable to quantify it any further he did have some superficial wound and minimal drainage from it no clear history of any fever or chills and no fever was recorded on presentation to the hospital patient was not tachycardic hypotensive or hypoxic he did have white count of 9.6 potassium was low at 1.8 other LFTs are normal creatinine is normal liver isms are normal urine has been negative patient was started on vancomycin infectious was consulted for further management of antibiotic therapy Review of Systems Positive points has been mentioned in HPI complete review could not be obtained because of his underlying mental status Past Medical History Past Medical History: Atrial Fibrillation, Hypertension, Seizure Disorder Additional Past Medical History / Comment(s): bowel obstruction, cervical spinal stenosis, lung cancer with brain metastases, seizure 11/26/22. History of Any Multi-Drug Resistant Organisms: MRSA Year Discovered:: 11/05/24 MDRO Source:: left elbow Past Surgical History: Back Surgery Additional Past Surgical History / Comment(s): Colostomy and reverse colostomy, L4-L5 fusion, brain surgery Past Anesthesia/Blood Transfusion Reactions: No Reported Reaction Past Psychological History: No Psychological Hx Reported Smoking Status: Current every day smoker Past Alcohol Use History: None Reported Past Drug Use History: Marijuana - Past Family History Mother Family Medical History: Cancer, Hypertension Additional Family Medical History / Comment(s): lung CA Father Family Medical History: Diabetes Mellitus Medications and Allergies Home Medications Medication Instructions Recorded Confirmed Type Albuterol Inhaler [Ventolin Hfa 2 puff INHALATION RT-QID PRN 11/07/23 11/12/24 History Inhaler] buprenorphine HCL [Subutex] 8 mg PO BID 11/07/23 11/12/24 History Aspirin 81 mg PO DAILY 04/08/24 11/12/24 History Furosemide [Lasix] 40 mg PO DAILY 06/11/24 11/12/24 History Amiodarone HCl [Pacerone] 100 mg PO DAILY 11/12/24 11/12/24 History Hydrocortisone [Cortef] 20 mg PO BID 11/12/24 11/12/24 History Sulfamethox-Tmp 400-80Mg [Bactrim 1 tab PO BID 11/12/24 11/12/24 History SS 400-80 mg] levETIRAcetam [Keppra] 1,000 mg PO Q12HR 11/12/24 11/12/24 History Allergies Allergy/AdvReac Type Severity Reaction Status Date / Time cephalexin [From Keflex] AdvReac Confusion, Verified 11/12/24 13:31 dizziness and syncope Physical Exam Vitals: Vital Signs Temp Pulse Resp BP Pulse Ox 11/12/24 16:05 97.9 F 92 22 116/80 94 L 11/12/24 12:30 82 22 137/84 97 11/12/24 12:01 97.6 F 76 22 88/54 91 L Intake and Output 11/12/24 11/12/24 11/12/24 06:59 14:59 22:59 Other: Weight 67.132 kg GENERAL DESCRIPTION: Middle-aged male lying in bed, no distress. No tachypnea or accessory muscle of respiration use. HEENT: Shows Pallor , no scleral icterus. Oral mucous membrane is dry. No pharyngeal erythema or thrush NECK: Trachea central, no thyromegaly. LUNGS: Unlabored breathing. Coarse breath sounds bilaterally HEART: S1, S2, regular rate and rhythm. No loud murmur ABDOMEN: Soft, no tenderness , guarding or rigidity, no organomegaly EXTREMITIES: Left elbow did have some swelling and redness with a normal medial aspect with some slough tissue SKIN: No rash, no masses palpable. NEUROLOGICAL: The patient is lethargic arousable mood and affect is normal Results CBC & Chem 7: 11/12/24 12:28 11/13/24 03:52 Labs: Abnormal Lab Results - Last 24 Hours (Table) 11/12/24 11/12/24 11/12/24 Range/Units 12:28 12:28 14:40 RDW 17.1 H (11.5-15.5) % Potassium 1.8 L* (3.5-5.1) mmol/L BUN 59 H (9-20) mg/dL Troponin I (0.000-0.034) ng/mL Total Protein 6.2 L (6.3-8.2) g/dL Urine Protein 1+ H (Negative) Urine Blood Small H (Negative) 11/12/24 Range/Units 14:52 RDW (11.5-15.5) % Potassium (3.5-5.1) mmol/L BUN (9-20) mg/dL Troponin I 0.060 H* (0.000-0.034) ng/mL Total Protein (6.3-8.2) g/dL Urine Protein (Negative) Urine Blood (Negative) Assessment and Plan (1) Septic olecranon bursitis of left elbow Current Visit: Yes Status: Acute Code(s): M71.122 - OTHER INFECTIVE BURSITIS, LEFT ELBOW SNOMED Code(s): 5277697977164320 (2) Allergy to cephalosporin Current Visit: No Status: Acute Code(s): Z88.1 - ALLERGY STATUS TO OTHER ANTIBIOTIC AGENTS SNOMED Code(s): 789356215 (3) MRSA (methicillin resistant Staphylococcus aureus) infection Current Visit: Yes Status: Acute Code(s): A49.02 - METHICILLIN RESIS STAPH INFECTION, UNSP SITE SNOMED Code(s): 997418690 Plan: 1patient being admitted to the hospital for left elbow pain swelling redness he did have a wound with a culture positive for MRSA in the outpatient setting now with concern for left elbow septic olecranon bursitis. 2cephalosporin allergy. 3vancomycin pharmacy to dose target trough of 15 while watching kidney function and Vanco trough closely 4-patient benefit from Ortho evaluation and need for any surgical I&D We will follow on clinical condition and cultures to further adjust medication if needed Thank you for this consultation we will follow the patient along with you Dictation was produced using [employer] dictation software. please excuse any grammatical, word or spelling errors. Time with Patient: Less than 30
[2024-11-13] MEDS ORDERED: dexAMETHasone 2 MG TAB PO SCH (09:00)
[2024-11-13] MEDS: ASPIRIN 81 MG PO SCH (09:30)
[2024-11-13] MEDS: AMIODARONE 100 MG TAB PO SCH (09:30)
--- NOTE | 2024-11-13 11:01 | P.PN ---
Subjective Progress Note Date: 11/13/24 Principal diagnosis: Reason for follow-up is left elbow septic olecranon bursitis Patient is a 59-year-old male with a past medical history significant for hypertension seizure disorder atrial fibrillation he did have a metastatic lung cancer has been brought to the hospital for worsening swelling to the left elbow with a culture positive for MRSA concerning for septic olecranon bursitis. On today's evaluation that is 11/13/2024,the patient is currently afebrile pa tient is breathing comfortably on 3 L nasal cannula oxygen patient is currently lethargic did not answer any question no vomiting or diarrhea and the changes reported. Patient did have a potassium of 2.4 no other lab draw today Objective - Vital Signs Vital signs: Vital Signs Temp 98.2 F 11/12/24 22:44 Pulse 107 H 11/13/24 07:00 Resp 20 11/13/24 07:00 BP 103/71 11/13/24 07:00 Pulse Ox 94 L 11/13/24 07:00 FiO2 Intake & Output 11/12/24 11/13/24 11/13/24 18:59 06:59 18:59 Weight 67.132 kg - Exam GENERAL DESCRIPTION: Middle-age male lying in bed in no distress RESPIRATORY SYSTEM: Unlabored breathing , decreased breath sounds at bases HEART: S1 S2 regular rate and rhythm , ABDOMEN: Soft , no tenderness EXTREMITIES: Left elbow did have some swelling no drainage was noticed - Labs CBC & Chem 7: 11/12/24 12:28 11/13/24 03:52 Labs: Abnormal Lab Results - Last 24 Hours (Table) 11/12/24 11/12/24 11/12/24 Range/Units 12:28 12:28 14:40 RDW 17.1 H (11.5-15.5) % Potassium 1.8 L* (3.5-5.1) mmol/L BUN 59 H (9-20) mg/dL Troponin I (0.000-0.034) ng/mL Total Protein 6.2 L (6.3-8.2) g/dL Urine Protein 1+ H (Negative) Urine Blood Small H (Negative) 11/12/24 11/12/24 11/13/24 Range/Units 14:52 22:04 03:52 RDW (11.5-15.5) % Potassium 2.4 L* 2.4 L* (3.5-5.1) mmol/L BUN (9-20) mg/dL Troponin I 0.060 H* (0.000-0.034) ng/mL Total Protein (6.3-8.2) g/dL Urine Protein (Negative) Urine Blood (Negative) Assessment and Plan (1) Septic olecranon bursitis of left elbow Current Visit: Yes Status: Acute Code(s): M71.122 - OTHER INFECTIVE BURSITIS, LEFT ELBOW SNOMED Code(s): 9324585295593815 (2) Allergy to cephalosporin Current Visit: No Status: Acute Code(s): Z88.1 - ALLERGY STATUS TO OTHER ANTIBIOTIC AGENTS SNOMED Code(s): 020829538 (3) MRSA (methicillin resistant Staphylococcus aureus) infection Current Visit: Yes Status: Acute Code(s): A49.02 - METHICILLIN RESIS STAPH INFECTION, UNSP SITE SNOMED Code(s): 400076630 Plan: 1patient being admitted to the hospital for left elbow pain swelling redness he did have a wound with a culture positive for MRSA in the outpatient setting now with concern for left elbow septic olecranon bursitis. 2cephalosporin allergy. 3-patient benefit from Ortho evaluation and need for any surgical I&D 4hypokalemia being managed by admitting team 5patient is currently being treated with vancomycin pharmacy to dose and will monitor clinical course closely Dictation was produced using [employer]ve dictation software. please excuse any grammatical, word or spelling errors. Time with Patient: Less than 30
--- NOTE | 2024-11-13 13:01 | XR ---
EXAMINATION TYPE: XR chest 1V portable DATE OF EXAM: 11/13/2024 12:38 PM COMPARISON: 06/11/2024 CLINICAL INDICATION: Male, 59 years old with history of resp distress, , FINDINGS: Heart borderline enlarged. Diffuse interstitial opacities. Some patchy left lower lung opacities. Radha nges may be slightly progressed from prior. No sizable pleural effusion. IMPRESSION: Diffuse interstitial densities slightly worsened from prior. Correlate for sequela of CHF with pulmon luis vascular congestion versus atypical pneumonias. [facility], , 11/13/2024 12:59 PM
[2024-11-13] MEDS: POTASSIUM CHLORIDE 20 MEQ in WATER FOR INJECTION 1 100ML.BAG IVPB SCH (14:35)
[2024-11-13] MEDS: LORazepam 2 MG/ML INJ IV PRN (17:33)
--- NOTE | 2024-11-14 01:50 | HP ---
HISTORY AND PHYSICAL CHIEF COMPLAINT: Weakness, carcinoma of the lung, and hypokalemia. 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 He has actually been doing fairly well. He was having a great deal of difficulty several months ago with weakness and breathing, but he has been steadily improving. However, he came to the emergency room extremely weak and semi-comatose. He was found to have potassium of 1.8. He also had an infection on his left elbow, which was thought to be an olecranon bursitis. There is no history of fever, chills, seizures, further neurologic signs or symptoms, etc. He has had a cardiac arrhythmia. He was in the office recently on November 04 and was actually doing quite well. He was actually eating and gaining weight. He does have a history of opioid abuse in the past. He still has been smoking some. When he was in the office, it is revealed that he is allergic to cephalosporins. MEDICATIONS: Include, 1. Potassium 20 mEq 3 times a day orally. 2. He is also on amiodarone 100 mg once a day. 3. Lasix 40 mg once a day. 4. Albuterol inhaler. 5. Eliquis 5 mg twice a day. 6. Levetiracetam 1 g twice a day. 7. Buprenorphine 8 mg twice a day. At that time, his vital signs were normal. REVIEW OF SYSTEMS: Unobtainable. PHYSICAL EXAMINATION: VITAL SIGNS: Blood pressure is 102. He is very lethargic. HEAD, EARS, EYES, NOSE, MOUTH AND THROAT: Unremarkable. NECK: Supple. Neck veins are not distended. CHEST: Demonstrated decreased breath sounds bilaterally. Shallow respirations. CARDIAC: Revealed atrial fibrillation. ABDOMEN: Soft, nontender, and there are no masses. EXTREMITIES: Revealed poor muscle bulk. He had some edema in the lower extremities with occasional neurotic excoriations. NEUROLOGICAL: He is very lethargic, but he had no focal lateralizing deficits. DIAGNOSES: He is admitted to the hospital with diagnoses of, 1. Hypokalemia. 2. Metastatic carcinoma of the lung. 3. History of cardiac arrhythmias. 4. History of opioid addiction. PLAN: 1. Bed rest. 2. IV fluids. 3. Correct hypokalemia. 4. Consult Oncology. MMODL / IJN: [id number] /
--- NOTE | 2024-11-14 04:59 | P.CNPUL ---
History of Present Illness Consult date: 11/14/24 Requesting physician: Cristian Byers Reason for consult: dyspnea Chief complaint: Sent in from wound care center History of present illness: Patient is a 59-year-old male with past medical history significant for hypertension, atrial fibrillation, polysubstance abuse, seizure disorder, pre vious ventilator dependent respiratory failure, lung cancer with brain mets status post chemo and radiation. More recently, patient's been following at the wound care center for multiple wounds. He was noted to be confused. Left elbow was erythemic and warm thought to be olecranon bursitis. Wound culture of the left elbow positive for methicillin-resistant Staphylococcus aureus. Sent to the emergency department for IV antibiotics on 11/12/2024. He was admitted to the cardiac stepdown unit. Apparently, noted to have increased work of breathing, and placed on BiPAP. Pulmonary consult was placed. Patient currently being evaluated in room 350. Remains confused, lethargic and will not answer my questions. There is a bedside sitter. Brain CT done on admission did not show any acute intracranial bleeding or mass effect. Postsurgical changes in the right posterior parietal and posterior left parietal occipital lobes with craniotomy. Patient currently on BiPAP with settings 12/6 and FiO2 of 40%. Nonlabored breathing. Achieving adequate tidal volumes. Previous VBG showing a pH of 7.33, pCO2 of 47. Chest x-ray showing diffuse interstitial densities, consider CHF versus atypical pneumonias. Is afebrile. CBC: WBC count 9.6, hemoglobin 14.8, platelets 316. CMP: sodium 142, potassium 2.4, chloride 103, serum bicarb 22, BUN 59, creatinine 1.2, glucose 96. Urinalysis unremarkable for infection. LFTs not elevated. Troponin 0.06. Admission EKG: Atrial fibrillation with controlled ventricular response, rate 81 bpm, RBBB pattern. Current most recent vital signs: Temperature 97.9 F, heart rate 109 bpm, blood pressure 123/75 mmHg, nontachypneic, on the above-mentioned BiPAP settings, SpO2 99%. Review of Systems ROS unobtainable: due to mental status Past Medical History Past Medical History: Atrial Fibrillation, Hypertension, Seizure Disorder Additional Past Medical History / Comment(s): bowel obstruction, cervical spinal stenosis, lung cancer with brain metastases, seizure 11/26/22. History of Any Multi-Drug Resistant Organisms: MRSA Date of last positivie culture/infection: 11/05/24 MDRO Source:: left elbow Past Surgical History: Back Surgery Additional Past Surgical History / Comment(s): Colostomy and reverse colostomy, L4-L5 fusion, brain surgery Past Anesthesia/Blood Transfusion Reactions: No Reported Reaction Past Psychological History: No Psychological Hx Reported Smoking Status: Current every day smoker Past Alcohol Use History: None Reported Past Drug Use History: Marijuana - Past Family History Mother Family Medical History: Cancer, Hypertension Additional Family Medical History / Comment(s): lung CA Father Family Medical History: Diabetes Mellitus Medications and Allergies Home Medications Medication Instructions Recorded Confirmed Type Albuterol Inhaler [Ventolin Hfa 2 puff INHALATION RT-QID PRN 11/07/23 11/12/24 History Inhaler] buprenorphine HCL [Subutex] 8 mg PO BID 11/07/23 11/12/24 History Aspirin 81 mg PO DAILY 04/08/24 11/12/24 History Furosemide [Lasix] 40 mg PO DAILY 06/11/24 11/12/24 History Amiodarone HCl [Pacerone] 100 mg PO DAILY 11/12/24 11/12/24 History Hydrocortisone [Cortef] 20 mg PO BID 11/12/24 11/12/24 History Sulfamethox-Tmp 400-80Mg [Bactrim 1 tab PO BID 11/12/24 11/12/24 History SS 400-80 mg] levETIRAcetam [Keppra] 1,000 mg PO Q12HR 11/12/24 11/12/24 History Allergies Allergy/AdvReac Type Severity Reaction Status Date / Time cephalexin [From Keflex] AdvReac Confusion, Verified 11/12/24 13:31 dizziness and syncope Physical Exam Vitals: Vital Signs Temp Pulse Pulse Resp BP BP Pulse Ox 11/14/24 04:10 11/13/24 23:41 11/13/24 23:14 97.9 F 109 H 20 123/75 99 11/13/24 20:57 11/13/24 20:00 98.7 F 117 H 20 118/72 98 11/13/24 15:38 11/13/24 15:33 96 24 130/86 98 11/13/24 15:25 98.1 F 11/13/24 14:00 98 24 105/73 95 11/13/24 13:00 98 11/13/24 12:13 97 11/13/24 12:11 11/13/24 11:35 99.8 F H 115 H 16 112/73 92 L 11/13/24 07:00 107 H 20 103/71 94 L 11/13/24 05:00 90 17 95/66 94 L FiO2 11/14/24 04:10 40 11/13/24 23:41 40 11/13/24 23:14 11/13/24 20:57 40 11/13/24 20:00 11/13/24 15:38 40 11/13/24 15:33 11/13/24 15:25 11/13/24 14:00 11/13/24 13:00 11/13/24 12:13 40 11/13/24 12:11 40 11/13/24 11:35 11/13/24 07:00 11/13/24 05:00 Intake and Output 11/13/24 11/13/24 11/14/24 14:59 22:59 06:59 Output Total 800 Balance -800 Output: Urine 800 Other: Voiding Method External Catheter # Voids 1 # Bowel Movements 1 Weight 67.132 kg GENERAL EXAM: Lethargic, 59-year-old male, on BiPAP, nonlabored breathing, comfortable in no apparent distress. HEAD: Normocephalic and atraumatic EYES: Normal reaction of pupils, equal size. NOSE: Clear with pink turbinates. THROAT: No erythema or exudates. NECK: No masses, no JVD. CHEST: No chest wall deformity. LUNGS: Equal air entry with no crackles, wheeze, rhonchi or dullness. On BiPAP with settings 12/6 and FiO2 of 40%. Achieving adequate tidal volumes. No conversational dyspnea or accessory muscle use.. CVS: S1 and S2 normal with no audible murmur, irregular rhythm. No extra heart sounds ABDOMEN: No hepatosplenomegaly, active bowel sounds, no guarding or rigidity. SPINE: No scoliosis or deformity SKIN: Multiple generalized secondary lesions and crusts. Left elbow with open superficial wound, pink in color, no purulent drainage. CENTRAL NERVOUS SYSTEM: Lethargic, nonfocal neurological exam, tone is normal in all 4 extremities. No clinical apparent seizure activity. EXTREMITIES: There is no peripheral edema, clubbing, or cyanosis. Peripheral pulses are intact. Results - Laboratory Findings CBC and BMP: 11/12/24 12:28 11/13/24 09:27 PT/INR, D-dimer PT 11.3 sec (10.0-12.5) 11/12/24 12:28 INR 1.0 (<1.2) 11/12/24 12:28 Abnormal lab findings: Abnormal Labs 11/12/24 11/12/24 11/12/24 12:28 12:28 14:40 RDW 17.1 H Potassium 1.8 L* BUN 59 H Magnesium Troponin I Total Protein 6.2 L Urine Protein 1+ H Urine Blood Small H 11/12/24 11/12/24 11/13/24 14:52 22:04 03:52 RDW Potassium 2.4 L* 2.4 L* BUN Magnesium Troponin I 0.060 H* Total Protein Urine Protein Urine Blood 11/13/24 11/13/24 09:27 09:27 RDW Potassium 2.4 L* BUN Magnesium 2.9 H Troponin I Total Protein Urine Protein Urine Blood - Diagnostic Findings Chest x-ray: image reviewed Assessment and Plan Assessment: Acute hypoxemic respiratory failure, currently on BiPAP, chest x-ray showing increased diffuse interstitial densities bilaterally, consider congestive heart failure with pulmonary vascular congestion versus atypical pneumonias. Suspected olecranon bursitis, wound culture positive for methicillin-resistant Staphylococcus aureus Atrial fibrillation with controlled ventricular response Hypertension Severe hypokalemia, being replaced Elevated troponins, possibly secondary to supply/demand mismatch Altered mental status, under investigation, brain CT did not show any acute intracranial bleeding or mass effect. Postsurgical changes in the posterior right parietal and posterior left parietal occipital lobes with craniotomy. History of lung cancer with metastasis to the brain, status post chemoradiation History of seizure disorder History of polysubstance abuse Plan: Patient's medications, labs, chest x-ray reviewed Continue BiPAP with current settings Check viral 4 Plex Check NT proBNP. Consider resuming diuretics once potassium is replaced. Rech jaylen electrolytes. Check procalcitonin level Antibiotics being directed by ID Preliminary blood culture showing no growth at 24 hours We will continue to follow, additional recommendations forthcoming I have personally seen and examined the patient, performed the documentation and the assessment and plan as written. Number of minutes spent on the visit:20 This dictation was produced using dragon dictation software please excuse grammatical errors Time with Patient: Greater than 30
[2024-11-14 06:23] LABS: African American GFR (CKD) >90 (>60 ml/min/1.73 sqM); Anion Gap 8 mmol/L; Blood Urea Nitrogen 36 mg/dL (9-20); Calcium 9.1 mg/dL (8.4-10.2); Carbon Dioxide 22 mmol/L (22-30); Chloride 114 mmol/L (98-107); Glucose 135 mg/dL (74-99); Non-African American GFR(CKD) >90 (>60 ml/min/1.73 sqM); Potassium 2.9 mmol/L (3.5-5.1); Sodium 144 mmol/L (137-145)
[2024-11-14 11:15] LABS: Influenza A Not Detected (Not Detectd); Influenza B Not Detected (Not Detectd); RSV Not Detected (Not Detectd)
[2024-11-14] MEDS: VANCOMYCIN TROUGH DUE 1 EACH MISC MISCELLANE ONE (11:42)
--- NOTE | 2024-11-14 14:18 | P.PN ---
Subjective Progress Note Date: 11/14/24 Principal diagnosis: Reason for follow-up is left elbow septic olecranon bursitis Patient is a 59-year-old male with a past medical history significant for hypertension seizure disorder atrial fibrillation he did have a metastatic lung cancer has been brought to the hospital for worsening swelling to the left elbow with a culture positive for MRSA concerning for septic olecranon bursitis. On today's evaluation that is 11/14/2024,the patient remains to be afebrile, patient is on BiPAP with a 40% FiO2 patient remains to be lethargic and cannot provide any history, no vomiting diarrhea and the changes reported by nursing staff. Patient did have a creatinine 0.71 troponin mildly elevated Vanco trough is 17.7 blood cultures are pending Objective - Vital Signs Vital signs: Vital Signs Temp 99 F 11/14/24 14:00 Pulse 116 H 11/14/24 14:00 Resp 20 11/14/24 14:00 BP 127/84 11/14/24 14:00 Pulse Ox 98 11/14/24 14:00 FiO2 40 11/14/24 11:20 Intake & Output 11/13/24 11/14/24 11/14/24 18:59 06:59 18:59 Intake Total 20 Output Total 800 1200 Balance -800 -1180 Weight 67.132 kg 70.5 kg Intake: IV 20 Invasive Line 1 10 Invasive Line 2 10 Output: Urine 800 1200 Other: Voiding Method External Catheter External Catheter # Voids 1 # Bowel Movements 1 - Exam GENERAL DESCRIPTION: Middle-age male lying in bed in no distress RESPIRATORY SYSTEM: Unlabored breathing , decreased breath sounds at bases HEART: S1 S2 regular rate and rhythm , ABDOMEN: Soft , no tenderness EXTREMITIES: Left elbow did have some swelling no drainage was noticed - Labs CBC & Chem 7: 11/12/24 12:28 11/14/24 05:49 Labs: Abnormal Lab Results - Last 24 Hours (Table) 11/13/24 11/14/24 11/14/24 Range/Units 09:27 05:49 05:49 D-Dimer 0.79 H (<0.60) mg/L FEU Potassium 2.9 L (3.5-5.1) mmol/L Chloride 114 H (98-107) mmol/L BUN 36 H (9-20) mg/dL Glucose 135 H (74-99) mg/dL Magnesium 2.9 H (1.6-2.3) mg/dL Troponin I (0.000-0.034) ng/mL 11/14/24 Range/Units 05:49 D-Dimer (<0.60) mg/L FEU Potassium (3.5-5.1) mmol/L Chloride (98-107) mmol/L BUN (9-20) mg/dL Glucose (74-99) mg/dL Magnesium (1.6-2.3) mg/dL Troponin I 0.036 H* (0.000-0.034) ng/mL Microbiology - Last 24 Hours (Table) 11/12/24 12:28 Blood Culture - Preliminary Blood Assessment and Plan (1) Septic olecranon bursitis of left elbow Current Visit: Yes Status: Acute Code(s): M71.122 - OTHER INFECTIVE BURSITIS, LEFT ELBOW SNOMED Code(s): 6880140039160974 (2) Allergy to cephalosporin Current Visit: No Status: Acute Code(s): Z88.1 - ALLERGY STATUS TO OTHER ANTIBIOTIC AGENTS SNOMED Code(s): 808185241 (3) MRSA (methicillin resistant Staphylococcus aureus) infection Current Visit: Yes Status: Acute Code(s): A49.02 - METHICILLIN RESIS STAPH INFECTION, UNSP SITE SNOMED Code(s): 649953164 Plan: 1patient being admitted to the hospital for left elbow pain swelling redness he did have a wound with a culture positive for MRSA in the outpatient setting now with concern for left elbow septic olecranon bursitis. 2cephalosporin allergy. 3-patient benefit from Ortho evaluation and need for any surgical I&D 4patient to continue treatment with vancomycin pharmacy to dose with a level currently therapeutic 17.7, and will monitor clinical course closely Dictation was produced using [employer] software. please excuse any grammatical, word or spelling errors. Time with Patient: Less than 30
--- NOTE | 2024-11-14 19:03 | P.CONS ---
History of Present Illness - Reason for Consult Consult date: 11/14/24 met NSCLC, on treatment Requesting physician: Cristian Byers - Chief Complaint infected wounds - History of Present Illness Mr. Riddle is a 58 yo who follows with Dr. Chel Rahman for extensive stage SCLC. Presented to [facility] on 04/22/22 with increased confusion and disorientation. CT brain without contrast noted 2 large hypodense lesions in bilateral parietal lobes measuring 4.9 x 3.2 cm on the left and 3.3 x 3.1 cm on the right. Initial CXR showed 2.6 cm mass in left mid lung field. He was started on IV dexamethasone. MRI brain on 04/23/22 noted a left 4.9 x 4.8 x 4 cm left cerberal hemisphere lesion and 4.1 x 4.1 cm right cerebral hemisphere lesion. A left cerebellum lesion measured 1.4 x 1.2 x 0.9 cm along with a potential left cerebellar peduncle lesion measuring 5 mm. 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 PET/CT on 05/24/22 reported posterior lateral SERAFIN lung lesion with SUV 4.79, superior left hilar lymphadenopathy with SUV 4.97, and punctate posterior right lung nodule with SUV 1.12. Uptake was also noted at the costovertebral junction and posterior chest, but unclear if this was malignant in nature. He had SRS at [facility] from 05/30/22-06/07/22 receiving 57 Gy in 8 fractions. Had significant improvement in his vision since SRS. He received 4 cycles of carboplatin and etoposide from 07/05/22-09/08/22. Staging CT scans on 09/19/2022 revealed no evidence of disease progression with partial response. Brain MRI July 2022 with no evidence of disease recurrence. He is completed consolidative radiation therapy to the thorax with 40 Gy in 15 fractions. He subsequently underwent cycle 1 of maintenance atezolizumab on 11/21/2022, unfortunately, he was admitted to [facility] on 11/28/2022 with confusion and found to have witnessed seizure on arrival to the ED requiring IV Ativan. MRI of the brain revealed resected brain parenchyma in the bilateral parietal lobes, with no definitive evidence of disease recurrence or new lesions concerning for recurrent disease in the brain. There was signal enhancement in the temporal lobe lesion concerning for seizure activity. He was seen by neurology inpatient and started on Keppra twice daily, which he continues to take and is following with Dr. Ann of neurology. Brain MRI on 07/06/2023 revealed no evidence of intracranial metastases. Repeat brain MRI on 08/28/2023 noted new anterior left temporal lobe lesion measuring 1.4 cm. He received 3 fractions of SRS with 27 Gordon from 09/04/2023 through 09/06/2023. Staging CT scans on 10/23/2023 revealed no evidence of metastatic disease. He was admitted to [facility] on 11/07/2023 with seizure and altered mental status was found to have new right temporal lobe lesion measuring 1.2 cm. Completed 3 fractions of SRS to the temporal lobe lesion in early December 2023. He restarted atezolizumab on 12/01. Staging CT scans on 03/06/2024 and brain MRI on 03/18/2024 revealed no evidence of recurrent or metastatic disease. He was previously noted to have cysts of the liver with no lesions concerning for definitive metastatic disease.He did have hospitalizations in May and June 2024 where brain MRI on 05/17/2024 noted stable intracranial lesions that were treated. CT abdomen/pelvis on 06/13/2024 revealed no evidence of malignancy with stable hepatic cysts. CT chest performed on 08/05/2024 revealed no evidence of metastatic disease. Staging CT scans along with brain MRI scheduled for later this month. He is s/p 25 cycles of maintenance tecentriq. Patient was sent to the emergency department because of concerns for infected wounds. While inpatient patient became confused, disoriented, hypoxic, placed on BiPAP. Currently patient is not able to give us any historyTmax 99.8, mild tachycardia, blood pressure stable. He was severely hypokalemic, this is being replaced, viral panel is negative, CBC is unremarkable, brain CT without contrast no acute findings, chest x-ray diffuse interstitial densities slightly worsened pulmonary vascular congestion versus atypical pneumonia Review of Systems ROS unobtainable: due to mental status Past Medical History Past Medical History: Atrial Fibrillation, Cancer, Hypertension, Seizure Disorder Additional Past Medical History / Comment(s): bowel obstruction, cervical spinal stenosis, lung cancer with brain metastases, seizure 11/26/22. History of Any Multi-Drug Resistant Organisms: MRSA Year Discovered:: 11/05/24 MDRO Source:: left elbow Past Surgical History: Back Surgery Additional Past Surgical History / Comment(s): Colostomy and reverse colostomy, L4-L5 fusion, brain surgery Past Anesthesia/Blood Transfusion Reactions: No Reported Reaction Past Psychological History: No Psychological Hx Reported Smoking Status: Current every day smoker Past Alcohol Use History: None Reported Past Drug Use History: Marijuana - Past Family History Mother Family Medical History: Cancer, Hypertension Additional Family Medical History / Comment(s): lung CA Father Family Medical History: Diabetes Mellitus Medications and Allergies Home Medications Medication Instructions Recorded Confirmed Type Albuterol Inhaler [Ventolin Hfa 2 puff INHALATION RT-QID PRN 11/07/23 11/12/24 History Inhaler] buprenorphine HCL [Subutex] 8 mg PO BID 11/07/23 11/12/24 History Aspirin 81 mg PO DAILY 04/08/24 11/12/24 History Furosemide [Lasix] 40 mg PO DAILY 06/11/24 11/12/24 History Amiodarone HCl [Pacerone] 100 mg PO DAILY 11/12/24 11/12/24 History Hydrocortisone [Cortef] 20 mg PO BID 11/12/24 11/12/24 History Sulfamethox-Tmp 400-80Mg [Bactrim 1 tab PO BID 11/12/24 11/12/24 History SS 400-80 mg] levETIRAcetam [Keppra] 1,000 mg PO Q12HR 11/12/24 11/12/24 History Allergies Allergy/AdvReac Type Severity Reaction Status Date / Time cephalexin [From Keflex] AdvReac Confusion, Verified 11/12/24 13:31 dizziness and syncope Physical Exam Vitals: Vital Signs Temp Pulse Pulse Resp BP BP Pulse Ox 11/14/24 07:55 11/14/24 04:10 11/13/24 23:41 11/13/24 23:14 97.9 F 109 H 20 123/75 99 11/13/24 20:57 11/13/24 20:00 98.7 F 117 H 20 118/72 98 11/13/24 15:38 11/13/24 15:33 96 24 130/86 98 11/13/24 15:25 98.1 F 11/13/24 14:00 98 24 105/73 95 11/13/24 13:00 98 11/13/24 12:13 97 11/13/24 12:11 11/13/24 11:35 99.8 F H 115 H 16 112/73 92 L FiO2 11/14/24 07:55 40 11/14/24 04:10 40 11/13/24 23:41 40 11/13/24 23:14 11/13/24 20:57 40 11/13/24 20:00 11/13/24 15:38 40 11/13/24 15:33 11/13/24 15:25 11/13/24 14:00 11/13/24 13:00 11/13/24 12:13 40 11/13/24 12:11 40 11/13/24 11:35 Intake and Output 11/13/24 11/14/24 11/14/24 22:59 06:59 14:59 Output Total 1200 Balance -1200 Output: Urine 1200 Other: Voiding Method External Catheter # Voids 1 # Bowel Movements 1 Weight 67.132 kg 70.5 kg Well-developed, adequately nourished, BiPAP on, confused, not following commands, unable to answer any questions, S1, S2, radial pulses palpable 2+, skin is warm to the touch, air entry into the bilateral lungs is noted, bowel sounds are positive Results CBC & Chem 7: 11/12/24 12:28 11/14/24 05:49 Labs: Abnormal Lab Results - Last 24 Hours (Table) 11/13/24 11/13/24 11/14/24 Range/Units 09:27 09:27 05:49 D-Dimer (<0.60) mg/L FEU Potassium 2.4 L* 2.9 L (3.5-5.1) mmol/L Chloride 114 H (98-107) mmol/L BUN 36 H (9-20) mg/dL Glucose 135 H (74-99) mg/dL Magnesium 2.9 H (1.6-2.3) mg/dL Troponin I (0.000-0.034) ng/mL 11/14/24 11/14/24 Range/Units 05:49 05:49 D-Dimer 0.79 H (<0.60) mg/L FEU Potassium (3.5-5.1) mmol/L Chloride (98-107) mmol/L BUN (9-20) mg/dL Glucose (74-99) mg/dL Magnesium (1.6-2.3) mg/dL Troponin I 0.036 H* (0.000-0.034) ng/mL Microbiology - Last 24 Hours (Table) 11/12/24 12:28 Blood Culture - Preliminary Blood Chest x-ray: report reviewed CT Scan - head: report reviewed Assessment and Plan (1) Altered mental status Current Visit: Yes Status: Acute Priority: High Code(s): R41.82 - ALTERED MENTAL STATUS, UNSPECIFIED SNOMED Code(s): 337614229 (2) Small cell lung cancer Current Visit: Yes Status: Acute Priority: Medium Code(s): C34.90 - MALIGNANT NEOPLASM OF UNSP PART OF UNSP BRONCHUS OR LUNG SNOMED Code(s): 326493459 Plan: Altered mental status -Patient has had similar episodes in the past, usually associated with seizure activity or disease progression in the brain. CT of the head without contrast not reporting any acute or new findings, no reports of seizure activity. -Pt currently being treated for infection, Infectious diseases following. -If patient's mental status does not improve with treatment of infection, may consider MRI of the brain. Small cell lung cancer -Diagnosis and treatment as stated in HPI -Patient has had disease recurrence, all within the brain. Treated with r adiation -Patient has been on maintenance immunotherapy treatment for almost 2 years, no progression of disease/new disease -Hold treatment for now, until acute condition treated and resolved Doctor attests: I performed a history and physical examination of this patient, developed impression and plan of care. Discussed with dictator. I agree with dictators note, documented as a scribe.
--- NOTE | 2024-11-15 03:52 | PN ---
PROGRESS NOTE DATE OF SERVICE: 11/14/2024 CHIEF COMPLAINT: Hypokalemia and mental status changes. HISTORY OF PRESENT ILLNESS: This gentleman is on BiPAP and he is minimally responsive. His troponins are also elevated. His potassium is up to 2.9 today. His GFR is actually quite good at 66. Chest x-ray demonstrates some increase in the lung congestion. PHYSICAL EXAMINATION: CHEST: He has bilateral breath sounds, which are somewhat diminished at the bases and there are rales. CARDIAC: Normal. ABDOMEN: Soft. IMPRESSION: 1. Hypokalemia. 2. Hypomagnesemia. 3. Carcinoma of the lung. 4. Mental status changes. 5. Elevated troponin. PLAN: 1. Continue with IV fluids and correct his electrolyte imbalance. 2. If he continues to develop more and more somnolence, further studies may be necessary. 3. He is a DNR according to advanced directives. We now started thinking about discharge plan. MOON / NAYE: [id number] /
--- NOTE | 2024-11-15 04:14 | PN ---
PROGRESS NOTE DATE OF SERVICE: 11/13/2024 CHIEF COMPLAINT: Hypokalemia, altered mental status, dehydration, and metastatic CA of the lung. HISTORY OF PRESENT ILLNESS: This gentleman remains very lethargic. His potassium is coming up from 1.5, it is 2.4 at this time. He remains quite lethargic, but arousable. He does not seem to have any significant complaints. PHYSICAL EXAMINATION: VITAL SIGNS: His blood pressure is 95/66. HEAD, EARS, EYES, NOSE, MOUTH AND THROAT: Unchanged. CHEST: Breath sounds are heard bilaterally. CARDIAC: Normal. EXTREMITIES: Normal. IMPRESSION: 1. Dehydration. 2. Severe hypokalemia. 3. Hypomagnesemia. 4. Metastatic carcinoma of the lung. PLAN: Continue with IV fluids and restore his potassium. MMODL / IJN: [id number] /
--- NOTE | 2024-11-15 11:37 | XR ---
EXAMINATION TYPE: XR chest 1V portable DATE OF EXAM: 11/15/2024 11:23 AM COMPARISON: Chest radiographs from 11/13/2024 CLINICAL INDICATION: Male, 59 years old with history of Ca; TECHNIQUE: XR chest 1V portable Frontal view of the chest. FINDINGS: Lungs/Pleura: Increased opacification of the left lung compared to immediate prior. Is no evidence of pleural effusion, focal consolidation, or pneumothorax. Pulmonary vascularity: Pulmonary vascular congestion. Heart/mediastinum: Cardiomediastinal silhouette is unremarkable. Musculoskeletal: No acute osseous pathology. IMPRESSION: Near complete opacification of the left lung new from 09/12/2025 correlate for atelectasis and/or dev eloping pleural fusion. Possible pulmonary edema present. [facility], , 11/15/2024 11:34 AM
[2024-11-15 11:56] LABS: Anisocytosis Slight; Basophils % (A) 0 %; Eosinophils # (A) 0.1 k/uL (0-0.7); Eosinophils % (A) 1 %; HCT 38.8 % (39.0-53.0); HGB 12.2 gm/dL (13.0-17.5); Hypochromasia Moderate; Lymphocytes % (A) 7 %; MCH 29.8 pg (25.0-35.0); MCHC 31.3 g/dL (31.0-37.0); Mean Platelet Volume 7.7; Monocytes # (A) 0.8 k/uL (0-1.0); Monocytes % (A) 6 %; Neutrophils % (A) 84 %; Platelet Count 290 k/uL (150-450); Poikilocytosis Slight; RBC 4.08 m/uL (4.30-5.90); RDW 16.8 % (11.5-15.5)
[2024-11-15 12:11] LABS: ALT 14 U/L (4-49); AST 25 U/L (17-59); African American GFR (CKD) >90 (>60 ml/min/1.73 sqM); Albumin 3.1 g/dL (3.5-5.0); Alkaline Phosphatase 55 U/L (38-126); Anion Gap 8 mmol/L; Blood Urea Nitrogen 31 mg/dL (9-20); Calcium 9.2 mg/dL (8.4-10.2); Carbon Dioxide 23 mmol/L (22-30); Chloride 113 mmol/L (98-107); Glucose 115 mg/dL (74-99); Non-African American GFR(CKD) >90 (>60 ml/min/1.73 sqM); Sodium 144 mmol/L (137-145); Total Bilirubin 0.5 mg/dL (0.2-1.3); Total Protein 5.3 g/dL (6.3-8.2)
[2024-11-15 12:17] LABS: Potassium 2.4 mmol/L (3.5-5.1)
[2024-11-15] MEDS: POTASSIUM CHLORIDE ER 20 MEQ TAB.ER PO STA ×2 (14:48)
--- NOTE | 2024-11-15 14:50 | P.PN ---
Subjective Progress Note Date: 11/15/24 Principal diagnosis: Mental status changes. Patient is a 59-year-old male with past medical history significant for hypertension, atrial fibrillation, polysubstance abuse, seizure disorder, previous ventilator dependent respiratory failure, lung cancer with brain mets status post chemo and radiation. More recently, patient's been following at the [facility] for multiple wounds. He was noted to be confused. Left elbow was erythemic and warm thought to be olecranon bursitis. Wound culture of the left elbow positive for methicillin-resistant Staphylococcus aureus. Sent to the emergency department for IV antibiotics on 11/12/2024. He was admitted to the cardiac stepdown unit. Apparently, noted to have increased work of breathing, and placed on BiPAP. Pulmonary consult was placed. Patient currently being evaluated in room 350. Remains confused, lethargic and will not answer my questions. There is a bedside sitter. Brain CT done on admission did not show any acute intracranial bleeding or mass effect. Postsurgical changes in the right posterior parietal and posterior left parietal occipital lobes with craniotomy. Patient currently on BiPAP with settings 12/6 and FiO2 of 40%. Nonlabored breathing. Achieving adequate tidal volumes. Previous VBG showing a pH of 7.33, pCO2 of 47. Chest x-ray showing diffuse interstitial densities, consider CHF versus atypical pneumonias. Is afebrile. CBC: WBC count 9.6, hemoglobin 14.8, platelets 316. CMP: sodium 142, potassium 2.4, chloride 103, serum bicarb 22, BUN 59, creatinine 1.2, glucose 96. Urinalysis unremarkable for infection. LFTs not elevated. Troponin 0.06. Admission EKG: Atrial fibr illation with controlled ventricular response, rate 81 bpm, RBBB pattern. Current most recent vital signs: Temperature 97.9 F, heart rate 109 bpm, blood pressure 123/75 mmHg, nontachypneic, on the above-mentioned BiPAP settings, SpO2 99%. Progress note dated November 15, 2024. 59-year-old male who is seen today in room 350. He is in bed, on 5 L nasal cannula. The BiPAP device is set at 10/5 and 40%. He is not receiving any IV fluids. The patient has a history of hypertension, atrial fibrillation, polysubstance abuse, seizure disorder, previous ventilator dependent respiratory failure, lung cancer, with brain mets. The patient was transferred over to the hospital, because of an elbow infection, secondary to MRSA, to receive IV antibiotics in the form of vancomycin. Current laboratory data includes a white count 13, hemoglobin 12.2, hematocrit 38.8, and a platelet count of 290,000. Sodium 144, potassium 2.4, chlorides 113, CO2 23, BUN 31, and creatinine 0.61. Glucose is 115. Troponin was 0.036. N-terminal proBNP was 5560. Procalcitonin level was normal at 0.13. Blood cultures are currently negative. Chest x-ray shows significant opacification of the left lung. The right lung looks relatively normal save for possible infiltrate or atelectasis at the right lung base medially. Objective - Vital Signs Vital signs: Vital Signs Temp 98.4 F 11/15/24 14:00 Pulse 112 H 11/15/24 14:00 Resp 18 11/15/24 08:00 BP 118/66 11/15/24 14:00 Pulse Ox 90 L 11/15/24 14:00 FiO2 40 11/15/24 11:22 Intake & Output 11/14/24 11/15/24 11/15/24 18:59 06:59 18:59 Intake Total 740 20 20 Output Total 1650 1200 1500 Balance -910 -1180 -1480 Weight 66.5 kg Intake: IV 20 20 20 Invasive Line 1 10 10 10 Invasive Line 2 10 10 10 Oral 720 Output: Urine 1650 1200 1500 Other: Voiding Method External Catheter External Catheter External Catheter - Exam No acute distress, somnolent/lethargic, currently on 5 L nasal cannula. Respiratory rate in the mid to high 20s. HEENT examination is grossly unremarkable. Mucous membranes are moist. No oral lesions. Neck supple. Full range of motion. No adenopathy thyromegaly or neck vein distention. Cardiovascular examination reveals regular rhythm rate. S1-S2 normal. No S3 or S4. No discernible murmur noted. Heart sounds are distant. Lungs reveal tattered rhonchi. Diminished breath sounds on the left. No wheezes or crackles. Abdomen soft bowel sounds are heard. No masses or tenderness. Extremities are intact. No cyanosis clubbing or edema. Skin reveals a left elbow with open superficial wound. Neurologic examination the patient to lethargic/somnolent. - Labs CBC & Chem 7: 11/15/24 11:41 11/15/24 11:41 Labs: Abnormal Lab Results - Last 24 Hours (Table) 11/15/24 11/15/24 Range/Units 11:41 11:41 WBC 13.0 H (3.8-10.6) k/uL RBC 4.08 L (4.30-5.90) m/uL Hgb 12.2 L (13.0-17.5) gm/dL Hct 38.8 L (39.0-53.0) % RDW 16.8 H (11.5-15.5) % Neutrophils # 11.0 H (1.3-7.7) k/uL Potassium 2.4 L* (3.5-5.1) mmol/L Chloride 113 H (98-107) mmol/L BUN 31 H (9-20) mg/dL Creatinine 0.61 L (0.66-1.25) mg/dL Glucose 115 H (74-99) mg/dL Total Protein 5.3 L (6.3-8.2) g/dL Albumin 3.1 L (3.5-5.0) g/dL Microbiology - Last 24 Hours (Table) 11/12/24 12:28 Blood Culture - Preliminary Blood Assessment and Plan Assessment: Acute hypoxemic respiratory failure, currently on BiPAP, chest x-ray showing increased diffuse interstitial densities bilaterally, consider congestive heart failure with pulmonary vascular congestion versus atypical pneumonias. Suspected olecranon bursitis, wound culture positive for methicillin-resistant Staphylococcus aureus. Atrial fibrillation with controlled ventricular response. Hypertension. Severe hypokalemia. Elevated troponins, possibly secondary to supply/demand mismatch. Altered mental status, under investigation, brain CT did not show any acute intracranial bleeding or mass effect. History of lung cancer with metastasis to the brain, S/P chemoradiation. History of seizure disorder. History of polysubstance abuse. Plan: Plan dated November 15, 2024. The patient is seen in room 350. Currently he is on 5 L nasal cannula. He is not receiving any IV fluids. The patient has a BiPAP device in the room, with settings of 10/5, and 40% that he uses intermittently. All labs, x-rays, medications are reviewed. Will go ahead and get a follow-up chest x-ray in the morning. Additional recommendations and suggestions are forthcoming. Initial chest x-ray revealed relatively clear lung ayon, but the more recent x-ray shows some opacification, in the left lung. Prognosis is guarded. CODE STATUS should be addressed by the primary service. 50 minutes was spent with this patient, in the process of gathering data examining the patient, reviewing pertinent laboratory data x-rays, and medications, as well as discussing the diagnosis, treatment, prognosis, with the patient's primary nursing staff. Dictation was produced using [employer] dictation software. Please excuse any grammatical, word or spelling errors. Time with Patient: Greater than 30
--- NOTE | 2024-11-15 15:04 | P.PN ---
Subjective Progress Note Date: 11/15/24 Principal diagnosis: Reason for follow-up is left elbow septic olecranon bursitis Patient is a 59-year-old male with a past medical history significant for hypertension seizure disorder atrial fibrillation he did have a metastatic lung cancer has been brought to the hospital for worsening swelling to the left elbow with a culture positive for MRSA concerning for septic olecranon bursitis. On today's evaluation that is 11/15/2024, the patient continues to be afebrile, the patient is on 4 L nasal cannula oxygen and breathing comfortably, the Pt slightly more awake today however not a very good historian no significant changes reported by the sitter at the bedside. Patient white count is 13,000, creatinine 0.61 chest x-ray with complete opacification of the left lung Objective - Vital Signs Vital signs: Vital Signs Temp 98.1 F 11/14/24 20:00 Pulse 103 H 11/15/24 08:00 Resp 18 11/15/24 08:00 BP 127/74 11/15/24 08:00 Pulse Ox 98 11/15/24 08:00 FiO2 40 11/15/24 11:22 Intake & Output 11/14/24 11/15/24 11/15/24 18:59 06:59 18:59 Intake Total 740 20 20 Output Total 1650 1200 1500 Balance -910 -1180 -1480 Weight 66.5 kg Intake: IV 20 20 20 Invasive Line 1 10 10 10 Invasive Line 2 10 10 10 Oral 720 Output: Urine 1650 1200 1500 Other: Voiding Method External Catheter External Catheter External Catheter - Exam GENERAL DESCRIPTION: Middle-age male lying in bed in no distress RESPIRATORY SYSTEM: Unlabored breathing , decreased breath sounds at bases HEART: S1 S2 regular rate and rhythm , ABDOMEN: Soft , no tenderness EXTREMITIES: Left elbow did have some swelling no drainage was noticed - Labs CBC & Chem 7: 11/15/24 11:41 11/15/24 11:41 Labs: Abnormal Lab Results - Last 24 Hours (Table) 11/15/24 11/15/24 Range/Units 11:41 11:41 WBC 13.0 H (3.8-10.6) k/uL RBC 4.08 L (4.30-5.90) m/uL Hgb 12.2 L (13.0-17.5) gm/dL Hct 38.8 L (39.0-53.0) % RDW 16.8 H (11.5-15.5) % Neutrophils # 11.0 H (1.3-7.7) k/uL Potassium 2.4 L* (3.5-5.1) mmol/L Chloride 113 H (98-107) mmol/L BUN 31 H (9-20) mg/dL Creatinine 0.61 L (0.66-1.25) mg/dL Glucose 115 H (74-99) mg/dL Total Protein 5.3 L (6.3-8.2) g/dL Albumin 3.1 L (3.5-5.0) g/dL Microbiology - Last 24 Hours (Table) 11/12/24 12:28 Blood Culture - Preliminary Blood Assessment and Plan (1) Septic olecranon bursitis of left elbow Current Visit: Yes Status: Acute Code(s): M71.122 - OTHER INFECTIVE BURSITIS, LEFT ELBOW SNOMED Code(s): 0354579035117265 (2) Allergy to cephalosporin Current Visit: No Status: Acute Code(s): Z88.1 - ALLERGY STATUS TO OTHER ANTIBIOTIC AGENTS SNOMED Code(s): 994455284 (3) MRSA (methicillin resistant Staphylococcus aureus) infection Current Visit: Yes Status: Acute Code(s): A49.02 - METHICILLIN RESIS STAPH INFECTION, UNSP SITE SNOMED Code(s): 584362197 Plan: 1patient being admitted to the hospital for left elbow pain swelling redness he did have a wound with a culture positive for MRSA in the outpatient setting now with concern for left elbow septic olecranon bursitis. 2cephalosporin allergy. 3-patient did have a complaint of his effusion of the left lung pulmonary is following the patient 4patient white count is slightly up more likely steroid related to continue treatment with vancomycin pharmacy to dose and will monitor clinical course closely Dictation was produced using [employer] software. please excuse any grammatical, word or spelling errors. Time with Patient: Less than 30
[2024-11-15] MEDS: IPRATROPIUM-ALBUTEROL 3 ML NEB INHALATION SCH (15:18)
--- NOTE | 2024-11-15 18:23 | P.PN ---
Subjective Progress Note Date: 11/15/24 At today's visit mentation appears to be slowly improving. Patient is A&O x 2. But remains rather lethargic Objective - Vital Signs Vital signs: Vital Signs Temp 98.1 F 11/14/24 20:00 Pulse 103 H 11/15/24 08:00 Resp 18 11/15/24 08:00 BP 127/74 11/15/24 08:00 Pulse Ox 98 11/15/24 08:00 FiO2 40 11/15/24 11:22 Intake & Output 11/14/24 11/15/24 11/15/24 18:59 06:59 18:59 Intake Total 740 20 20 Output Total 1650 1200 1500 Balance -910 -1180 -1480 Weight 66.5 kg Intake: IV 20 20 20 Invasive Line 1 10 10 10 Invasive Line 2 10 10 10 Oral 720 Output: Urine 1650 1200 1500 Other: Voiding Method External Catheter External Catheter External Catheter - Constitutional General appearance: Present: average body habitus, no acute distress - EENT Eyes: Present: anicteric sclerae, EOMI ENT: Present: hearing grossly normal - Respiratory Details: breathing is even and unlabored - Cardiovascular Details: skin warm and dry - Integumentary Integumentary: Absent: cyanotic - Neurologic Neurologic Comment(s): lethargic - Musculoskeletal Musculoskeletal: Present: generalized weakness - Psychiatric Psychiatric Comment(s): A&O x 2 - Labs CBC & Chem 7: 11/15/24 11:41 11/15/24 11:41 Labs: Abnormal Lab Results - Last 24 Hours (Table) 11/15/24 11/15/24 Range/Units 11:41 11:41 WBC 13.0 H (3.8-10.6) k/uL RBC 4.08 L (4.30-5.90) m/uL Hgb 12.2 L (13.0-17.5) gm/dL Hct 38.8 L (39.0-53.0) % RDW 16.8 H (11.5-15.5) % Neutrophils # 11.0 H (1.3-7.7) k/uL Potassium 2.4 L* (3.5-5.1) mmol/L Chloride 113 H (98-107) mmol/L BUN 31 H (9-20) mg/dL Creatinine 0.61 L (0.66-1.25) mg/dL Glucose 115 H (74-99) mg/dL Total Protein 5.3 L (6.3-8.2) g/dL Albumin 3.1 L (3.5-5.0) g/dL Microbiology - Last 24 Hours (Table) 11/12/24 12:28 Blood Culture - Preliminary Blood Assessment and Plan (1) Altered mental status Current Visit: Yes Status: Acute Priority: High Code(s): R41.82 - ALTERED MENTAL STATUS, UNSPECIFIED SNOMED Code(s): 380826232 (2) Small cell lung cancer Current Visit: Yes Status: Acute Priority: Medium Code(s): C34.90 - MALIGNANT NEOPLASM OF UNSP PART OF UNSP BRONCHUS OR LUNG SNOMED Code(s): 512644654 Plan: Altered mental status -Patient has had similar episodes in the past, usually associated with seizure activity or disease progression in the brain. CT of the head without contrast not reporting any acute or new findings, no reports of seizure activity. -Pt currently being treated for infection, Infectious diseases following. -If patient's mental status does not improve with treatment of infection, may consider MRI of the brain. Pt has shown improvement over the last 24 hrs. Will continue to monitor Small cell lung cancer -Diagnosis and treatment as stated in HPI -Patient has had disease recurrence, all within the brain. Treated with radiation -Patient has been on maintenance immunotherapy treatment for almost 2 years, no progression of disease/new disease -Hold treatment for now, until acute condition treated and resolved
[2024-11-15] MEDS: POTASSIUM CHLORIDE ER 20 MEQ TAB.ER PO SCH (20:18)
[2024-11-16] MEDS: HALOPERIDOL LACTATE 5 MG/ML 1 ML VIAL IM PRN (00:39)
[2024-11-16 11:21] LABS: African American GFR (CKD) >90 (>60 ml/min/1.73 sqM); Non-African American GFR(CKD) >90 (>60 ml/min/1.73 sqM)
[2024-11-16] MEDS: VANCOMYCIN TROUGH DUE 1 EACH MISC MISCELLANE ONE (11:40)
[2024-11-16 11:50] LABS: Anisocytosis Slight; HCT 41.6 % (39.0-53.0); HGB 13.5 gm/dL (13.0-17.5); Hypochromasia Slight; MCH 30.6 pg (25.0-35.0); MCHC 32.5 g/dL (31.0-37.0); Mean Platelet Volume 7.6; Platelet Count 297 k/uL (150-450); Poikilocytosis Slight; RBC 4.42 m/uL (4.30-5.90); RDW 16.8 % (11.5-15.5); WBC 12.6 k/uL (3.8-10.6)
--- NOTE | 2024-11-16 12:01 | P.PN ---
Subjective Progress Note Date: 11/16/24 Principal diagnosis: Reason for follow-up is left elbow septic olecranon bursitis Patient is a 59-year-old male with a past medical history significant for hypertension seizure disorder atrial fibrillation he did have a metastatic lung cancer has been brought to the hospital for worsening swelling to the left elbow with a culture positive for MRSA concerning for septic olecranon bursitis. 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 The patient white count is 12.6, creatinine 0.58 Objective - Vital Signs Vital signs: Vital Signs Temp 98.3 F 11/16/24 08:00 Pulse 112 H 11/16/24 09:38 Resp 22 11/16/24 08:00 BP 153/95 11/16/24 08:00 Pulse Ox 93 L 11/16/24 08:00 FiO2 40 11/15/24 11:22 Intake & Output 11/15/24 11/16/24 11/16/24 18:59 06:59 18:59 Intake Total 256 10 390 Output Total 3200 300 300 Balance -2944 -290 90 Intake: IV 20 10 Invasive Line 1 10 Invasive Line 2 10 Invasive Line 3 10 Oral 236 390 Output: Urine 3200 300 300 Other: Voiding Method External Catheter External Catheter External Catheter - Exam GENERAL DESCRIPTION: Middle-age male lying in bed in no distress RESPIRATORY SYSTEM: Unlabored breathing , decreased breath sounds at bases HEART: S1 S2 regular rate and rhythm , ABDOMEN: Soft , no tenderness EXTREMITIES: Left elbow did have some swelling no drainage was noticed - Labs CBC & Chem 7: 11/16/24 10:44 11/16/24 10:44 Labs: Abnormal Lab Results - Last 24 Hours (Table) 11/15/24 11/16/24 11/16/24 Range/Units 11:41 10:44 10:44 WBC 12.6 H (3.8-10.6) k/uL RDW 16.8 H (11.5-15.5) % Potassium 2.4 L* (3.5-5.1) mmol/L Chloride 113 H (98-107) mmol/L BUN 31 H (9-20) mg/dL Creatinine 0.61 L 0.58 L (0.66-1.25) mg/dL Glucose 115 H (74-99) mg/dL Total Protein 5.3 L (6.3-8.2) g/dL Albumin 3.1 L (3.5-5.0) g/dL Microbiology - Last 24 Hours (Table) 11/12/24 12:28 Blood Culture - Preliminary Blood Assessment and Plan (1) Septic olecranon bursitis of left elbow Current Visit: Yes Status: Acute Code(s): M71.122 - OTHER INFECTIVE BURSITIS, LEFT ELBOW SNOMED Code(s): 2348690386293577 (2) Allergy to cephalosporin Current Visit: No Status: Acute Code(s): Z88.1 - ALLERGY STATUS TO OTHER ANTIBIOTIC AGENTS SNOMED Code(s): 886275080 (3) MRSA (methicillin resistant Staphylococcus aureus) infection Current Visit: Yes Status: Acute Code(s): A49.02 - METHICILLIN RESIS STAPH INFECTION, UNSP SITE SNOMED Code(s): 290424433 Plan: 1patient being admitted to the hospital for left elbow pain swelling redness he did have a wound with a culture positive for MRSA in the outpatient setting now with concern for left elbow septic olecranon bursitis. 2cephalosporin allergy. 3-patient did have some improvement of the left elbow area we will contact the patient on vancomycin pharmacy to dose while inpatient and monitor clinical course closely Dictation was produced using [employer] dictation software. please excuse any grammatical, word or spelling errors. Time with Patient: Less than 30
[2024-11-16 12:18] LABS: Anion Gap 10 mmol/L; Blood Urea Nitrogen 23 mg/dL (9-20); Calcium 8.9 mg/dL (8.4-10.2); Carbon Dioxide 25 mmol/L (22-30); Chloride 111 mmol/L (98-107); Glucose 215 mg/dL (74-99); Sodium 146 mmol/L (137-145)
[2024-11-16 12:19] LABS: Potassium 2.6 mmol/L (3.5-5.1)
--- NOTE | 2024-11-16 12:34 | P.PN ---
Subjective Progress Note Date: 11/16/24 Principal diagnosis: Mental status changes. Patient is a 59-year-old male with past medical history significant for hypertension, atrial fibrillation, polysubstance abuse, seizure disorder, previous ventilator dependent respiratory failure, lung cancer with brain mets status post chemo and radiation. More recently, patient's been following at the [facility] for multiple wounds. He was noted to be confused. Left elbow was erythemic and warm thought to be olecranon bursitis. Wound culture of the left elbow positive for methicillin-resistant Staphylococcus aureus. Sent to the emergency department for IV antibiotics on 11/12/2024. He was admitted to the cardiac stepdown unit. Apparently, noted to have increased work of breathing, and placed on BiPAP. Pulmonary consult was placed. Patient currently being evaluated in room 350. Remains confused, lethargic and will not answer my questions. There is a bedside sitter. Brain CT done on admission did not show any acute intracranial bleeding or mass effect. Postsurgical changes in the right posterior parietal and posterior left parietal occipital lobes with craniotomy. Patient currently on BiPAP with settings 12/6 and FiO2 of 40%. Nonlabored breathing. Achieving adequate tidal volumes. Previous VBG showing a pH of 7.33, pCO2 of 47. Chest x-ray showing diffuse interstitial densities, consider CHF versus atypical pneumonias. Is afebrile. CBC: WBC count 9.6, hemoglobin 14.8, platelets 316. CMP: sodium 142, potassium 2.4, chloride 103, serum bicarb 22, BUN 59, creatinine 1.2, glucose 96. Urinalysis unremarkable for infection. LFTs not elevated. Troponin 0.06. Admission EKG: Atrial fibr illation with controlled ventricular response, rate 81 bpm, RBBB pattern. Current most recent vital signs: Temperature 97.9 F, heart rate 109 bpm, blood pressure 123/75 mmHg, nontachypneic, on the above-mentioned BiPAP settings, SpO2 99%. Progress note dated November 15, 2024. 59-year-old male who is seen today in room 350. He is in bed, on 5 L nasal cannula. The BiPAP device is set at 10/5 and 40%. He is not receiving any IV fluids. The patient has a history of hypertension, atrial fibrillation, polysubstance abuse, seizure disorder, previous ventilator dependent respiratory failure, lung cancer, with brain mets. The patient was transferred over to the hospital, because of an elbow infection, secondary to MRSA, to receive IV antibiotics in the form of vancomycin. Current laboratory data includes a white count 13, hemoglobin 12.2, hematocrit 38.8, and a platelet count of 290,000. Sodium 144, potassium 2.4, chlorides 113, CO2 23, BUN 31, and creatinine 0.61. Glucose is 115. Troponin was 0.036. N-terminal proBNP was 5560. Procalcitonin level was normal at 0.13. Blood cultures are currently negative. Chest x-ray shows significant opacification of the left lung. The right lung looks relatively normal save for possible infiltrate or atelectasis at the right lung base medially. Progress note dated November 16, 2024. 59-year-old male seen today in room 350. The patient is currently on 6 L of oxygen by nasal cannula. The patient is not receiving any fluids. He is receiving vancomycin for his MRSA infection. Clinically, he is a bit more awake and alert today than he was yesterday. Current laboratory data includes a white count 12.6, hemoglobin 13.5, hematocrit 41.6, and a platelet count of 297,000. Sodium 146, potassium 2.6, chlorides 111, CO2 25, anion gap 10, BUN 23, creatinine 0.58. Blood cultures are negative. Objective - Vital Signs Vital signs: Vital Signs Temp 98.3 F 11/16/24 08:00 Pulse 118 H 11/16/24 12:28 Resp 18 11/16/24 12:00 BP 114/75 11/16/24 12:00 Pulse Ox 94 L 11/16/24 12:00 FiO2 40 11/15/24 11:22 Intake & Output 11/15/24 11/16/24 11/16/24 18:59 06:59 18:59 Intake Total 256 10 390 Output Total 3200 300 650 Balance -2944 -290 -260 Intake: IV 20 10 Invasive Line 1 10 Invasive Line 2 10 Invasive Line 3 10 Oral 236 390 Output: Urine 3200 300 650 Other: Voiding Method External Catheter External Catheter External Catheter - Exam No acute distress, somnolent/lethargic, currently on 6 L nasal cannula. Respiratory rate in the mid to high 20s. HEENT examination is grossly unremarkable. Mucous membranes are moist. No oral lesions. Neck supple. Full range of motion. No adenopathy thyromegaly or neck vein distention. Cardiovascular examination reveals regular rhythm rate. S1-S2 normal. No S3 or S4. No discernible murmur noted. Heart sounds are distant. Lungs reveal tattered rhonchi. Diminished breath sounds on the left. No wheezes or crackles. Abdomen soft bowel sounds are heard. No masses or tenderness. Extremities are intact. No cyanosis clubbing or edema. Skin reveals a left elbow with open superficial wound. Neurologic examination the patient to lethargic/somnolent. - Labs CBC & Chem 7: 11/16/24 10:44 11/16/24 10:44 Labs: Abnormal Lab Results - Last 24 Hours (Table) 11/16/24 11/16/24 Range/Units 10:44 10:44 WBC 12.6 H (3.8-10.6) k/uL RDW 16.8 H (11.5-15.5) % Sodium 146 H (137-145) mmol/L Potassium 2.6 L* (3.5-5.1) mmol/L Chloride 111 H (98-107) mmol/L BUN 23 H (9-20) mg/dL Creatinine 0.58 L (0.66-1.25) mg/dL Glucose 215 H (74-99) mg/dL Microbiology - Last 24 Hours (Table) 11/12/24 12:28 Blood Culture - Preliminary Blood Assessment and Plan Assessment: Acute hypoxemic respiratory failure, currently on BiPAP, chest x-ray showing increased diffuse interstitial densities bilaterally, consider congestive heart failure with pulmonary vascular congestion versus atypical pneumonias. Suspected olecranon bursitis, wound culture positive for methicillin-resistant Staphylococcus aureus. Atrial fibrillation with controlled ventricular response. Hypertension. Severe hypokalemia. Elevated troponins, possibly secondary to supply/demand mismatch. Altered mental status, under investigation, brain CT did not show any acute intracranial bleeding or mass effect. History of lung cancer with metastasis to the brain, S/P chemoradiation. History of seizure disorder. History of polysubstance abuse. Plan: Plan dated November 15, 2024. The patient is seen in room 350. Currently he is on 5 L nasal cannula. He is not receiving any IV fluids. The patient has a BiPAP device in the room, with settings of 10/5, and 40% that he uses intermittently. All labs, x-rays, medications are reviewed. Will go ahead and get a follow-up chest x-ray in the morning. Additional recommendations and suggestions are forthcoming. Initial chest x-ray revealed relatively clear lung ayon, but the more recent x-ray shows some opacification, in the left lung. Prognosis is guarded. CODE STATUS should be addressed by the primary service. 50 minutes was spent with this patient, in the process of gathering data examining the patient, reviewing pertinent laboratory data x-rays, and medications, as well as discussing the diagnosis, treatment, prognosis, with the patient's primary nursing staff. Dictation was produced using [employer] software. Please excuse any grammatical, word or spelling errors. Plan dated November 16, 2024. The patient was seen today in room 350. The patient is currently on 6 L nasal cannula. He is much more awake and alert. No respiratory distress. He is not receiving any IV fluids. The patient does continue on vancomycin. Labs, x- rays, and all medications are reviewed. CODE STATUS should be addressed by the primary service. A chest x-ray will be ordered for the morning. 50 minutes was spent with this patient, in the process of gathering data, examining the patient, reviewing pertinent laboratory data, x-rays, medications, as well as discussing diagnosis, treatment plan, prognosis, with the patient's primary nursing staff, and the patient himself. As mentioned, he was much more awake and alert today. Dictation was produced using [employer] software. Please excuse any grammatical, word or spelling errors. Time with Patient: Greater than 30
[2024-11-16] MEDS: POTASSIUM CHLORIDE 10 MEQ in WATER FOR INJECTION 1 100ML.BAG IVPB SCH (12:39)
[2024-11-16] MEDS: AMIODARONE 200 MG TAB PO STA (17:49)
[2024-11-16] MEDS: AMIODARONE 200 MG TAB PO SCH (19:37)
--- NOTE | 2024-11-17 02:11 | PN ---
PROGRESS NOTE DATE OF SERVICE: 11/15/2024 CHIEF COMPLAINT: Mental status changes and hypokalemia. HISTORY OF PRESENT ILLNESS: This gentleman is about the same. He may be slightly more alert. His potassium persisted being low at 2.6 despite continued efforts of correction. PHYSICAL EXAMINATION: VITAL SIGNS: Stable, but he is slightly tachycardic. GENERAL: He is semi-alert. He does not seem to be oriented when he is more awake. LUNGS: Breath sounds are heard bilaterally. They are diminished on the right. CARDIAC: Normal except tachycardia and atrial fibrillation. ABDOMEN: Soft. EXTREMITIES: The same. IMPRESSION: 1. Mental status changes. 2. 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 3. Atrial fibrillation. PLAN: Continue supportive management with an effort to continue to increase his potassium. The reason for his hypokalemia is not clear. MMODL / IJN: [id number] /
--- NOTE | 2024-11-17 02:47 | PN ---
PROGRESS NOTE DATE OF SERVICE: 11/16/2024 CHIEF COMPLAINT: Mental status changes, hypokalemia, and left olecranon bursitis. HISTORY OF PRESENT ILLNESS: This gentleman is a little bit more awake and alert today. His potassium is still low at 2.6. He does have a rapid response rate to his atrial fibrillation. PHYSICAL EXAMINATION: GENERAL: He is a little bit more awake and alert. VITAL SIGNS: Pulse is going up to the 120s to the 130s. CHEST: Clear. ABDOMEN: Soft, nontender. IMPRESSION: 1. Mental status changes. 2. Hypokalemia. 3. Atrial fibrillation. 4. Carcinoma of the lung with metastases. PLAN: 1. Increase his amiodarone. 2. Keep efforts in place to increase his potassium. MMODL / IJN: [id number] /
[2024-11-17] MEDS: ACETAMINOPHEN TAB 325 MG TAB PO PRN (08:32)
[2024-11-17 08:46] LABS: Anisocytosis Slight; HCT 44.1 % (39.0-53.0); HGB 14.1 gm/dL (13.0-17.5); Hypochromasia Slight; MCH 29.7 pg (25.0-35.0); MCHC 31.9 g/dL (31.0-37.0); Mean Platelet Volume 8.4; Platelet Count 326 k/uL (150-450); Poikilocytosis Slight; RBC 4.75 m/uL (4.30-5.90); RDW 17.2 % (11.5-15.5); WBC 16.3 k/uL (3.8-10.6)
[2024-11-17 09:07] LABS: African American GFR (CKD) >90 (>60 ml/min/1.73 sqM); Anion Gap 10 mmol/L; Blood Urea Nitrogen 18 mg/dL (9-20); Calcium 9.2 mg/dL (8.4-10.2); Carbon Dioxide 24 mmol/L (22-30); Chloride 113 mmol/L (98-107); Glucose 204 mg/dL (74-99); Non-African American GFR(CKD) >90 (>60 ml/min/1.73 sqM); Potassium 2.8 mmol/L (3.5-5.1); Sodium 147 mmol/L (137-145)
--- NOTE | 2024-11-17 09:52 | XR ---
EXAMINATION TYPE: XR chest 2V DATE OF EXAM: 11/17/2024 9:31 AM COMPARISON: Chest radiograph from two days prior. CLINICAL INDICATION: Male, 59 years old with history of pneumonia; TECHNIQUE: XR chest 2V Frontal and lateral views of the chest. FINDINGS: Lungs/Pleura: There is no evidence of pleural effusion, focal consolidation, or pneumothorax. Pulmonary vascularity: Unremarkable. Heart/mediastinum: Cardiomediastinal silhouette is unremarkable. Musculoskeletal: No acute osseous pathology. IMPRESSION: Improved aeration of the left lung with persistent Airspace opacities projecting over the spine. [facility], , 11/17/2024 9:49 AM
[2024-11-17] MEDS: POTASSIUM CHLORIDE ER 20 MEQ TAB.ER PO SCH (11:03)
[2024-11-17] MEDS: METOPROLOL SUCCINATE (ER) 100 MG TAB.ER.24H PO SCH (11:03)
[2024-11-17] MEDS: HYDROmorphone 1 MG/ML 1 ML SYRINGE IVP PRN (11:04)
--- NOTE | 2024-11-17 11:20 | P.PN ---
Subjective Progress Note Date: 11/17/24 Principal diagnosis: Mental status changes. Patient is a 59-year-old male with past medical history significant for hypertension, atrial fibrillation, polysubstance abuse, seizure disorder, previous ventilator dependent respiratory failure, lung cancer with brain mets status post chemo and radiation. More recently, patient's been following at the [facility] [place] [facility] for multiple wounds. He was noted to be confused. Left elbow was erythemic and warm thought to be olecranon bursitis. Wound culture of the left elbow positive for methicillin-resistant Staphylococcus aureus. Sent to the emergency department for IV antibiotics on 11/12/2024. He was admitted to the cardiac stepdown unit. Apparently, noted to have increased work of breathing, and placed on BiPAP. Pulmonary consult was placed. Patient currently being evaluated in room 350. Remains confused, lethargic and will not answer my questions. There is a bedside sitter. Brain CT done on admission did not show any acute intracranial bleeding or mass effect. Postsurgical changes in the right posterior parietal and posterior left parietal occipital lobes with craniotomy. Patient currently on BiPAP with settings 12/6 and FiO2 of 40%. Nonlabored breathing. Achieving adequate tidal volumes. Previous VBG showing a pH of 7.33, pCO2 of 47. Chest x-ray showing diffuse interstitial densities, consider CHF versus atypical pneumonias. Is afebrile. CBC: WBC count 9.6, hemoglobin 14.8, platelets 316. CMP: sodium 142, potassium 2.4, chloride 103, serum bicarb 22, BUN 59, creatinine 1.2, glucose 96. Urinalysis unremarkable for infection. LFTs not elevated. Troponin 0.06. Admission EKG: Atrial fibr illation with controlled ventricular response, rate 81 bpm, RBBB pattern. Current most recent vital signs: Temperature 97.9 F, heart rate 109 bpm, blood pressure 123/75 mmHg, nontachypneic, on the above-mentioned BiPAP settings, SpO2 99%. Progress note dated November 15, 2024. 59-year-old male who is seen today in room 350. He is in bed, on 5 L nasal cannula. The BiPAP device is set at 10/5 and 40%. He is not receiving any IV fluids. The patient has a history of hypertension, atrial fibrillation, polysubstance abuse, seizure disorder, previous ventilator dependent respiratory failure, lung cancer, with brain mets. The patient was transferred over to the hospital, because of an elbow infection, secondary to MRSA, to receive IV antibiotics in the form of vancomycin. Current laboratory data includes a white count 13, hemoglobin 12.2, hematocrit 38.8, and a platelet count of 290,000. Sodium 144, potassium 2.4, chlorides 113, CO2 23, BUN 31, and creatinine 0.61. Glucose is 115. Troponin was 0.036. N-terminal proBNP was 5560. Procalcitonin level was normal at 0.13. Blood cultures are currently negative. Chest x-ray shows significant opacification of the left lung. The right lung looks relatively normal save for possible infiltrate or atelectasis at the right lung base medially. Progress note dated November 16, 2024. 59-year-old male seen today in room 350. The patient is currently on 6 L of oxygen by nasal cannula. The patient is not receiving any fluids. He is receiving vancomycin for his MRSA infection. Clinically, he is a bit more awake and alert today than he was yesterday. Current laboratory data includes a white count 12.6, hemoglobin 13.5, hematocrit 41.6, and a platelet count of 297,000. Sodium 146, potassium 2.6, chlorides 111, CO2 25, anion gap 10, BUN 23, creatinine 0.58. Blood cultures are negative. Progress note dated November 17, 2024. 59-year-old male seen today in room 350. Currently, the patient is on nasal O2, at 5 L. He is getting saline at 5 cc an hour. According to the nurse, the patient has been having tachycardia, i.e. atrial fibrillation with RVR, and the primary service is being notified, so that may be cardiology can see the patient. Currently, white count 16.3, hemoglobin 14.1, hematocrit 44.1, platelet count 3 26,000. Sodium 147, potassium 2.8, chlorides 113, CO2 24, BUN 18, creatinine 0.6. Glucose is 204. Calcium 9.2. Procalcitonin level was normal at 0.13. Blood cultures are negative. Chest x-ray apparently shows improving aeration to the left lung. Objective - Vital Signs Vital signs: Vital Signs Temp 98.6 F 11/17/24 08:00 Pulse 130 H 11/17/24 08:00 Resp 22 11/17/24 08:00 BP 134/96 11/17/24 08:00 Pulse Ox 94 L 11/17/24 08:00 FiO2 40 11/17/24 00:46 Intake & Output 11/16/24 11/17/24 11/17/24 18:59 06:59 18:59 Intake Total 750 210 358 Output Total 1350 200 Balance -600 210 158 Weight 62.6 kg Intake: IV 10 Invasive Line 5 10 Oral 750 200 358 Output: Urine 1350 200 Other: Voiding Method External Catheter External Catheter External Catheter # Bowel Movements 0 - Exam No acute distress, somnolent/lethargic, currently on 5 L nasal cannula. Respiratory rate in the mid to high 20s. HEENT examination is grossly unremarkable. Mucous membranes are moist. No oral lesions. Neck supple. Full range of motion. No adenopathy thyromegaly or neck vein distention. Cardiovascular examination reveals an irregular rhythm and rate. S1-S2 normal. No S3 or S4. No discernible murmur noted. Heart sounds are distant. Lungs reveal tattered rhonchi. Diminished breath sounds on the left. No wheezes or crackles. Abdomen soft bowel sounds are heard. No masses or tenderness. Extremities are intact. No cyanosis clubbing or edema. Skin reveals a left elbow with open superficial wound. Neurologic examination the patient to lethargic/somnolent. - Labs CBC & Chem 7: 11/17/24 08:05 11/17/24 08:05 Labs: Abnormal Lab Results - Last 24 Hours (Table) 11/16/24 11/16/24 11/17/24 Range/Units 10:44 10:44 08:05 WBC 12.6 H 16.3 H (3.8-10.6) k/uL RDW 16.8 H 17.2 H (11.5-15.5) % Sodium 146 H (137-145) mmol/L Potassium 2.6 L* (3.5-5.1) mmol/L Chloride 111 H (98-107) mmol/L BUN 23 H (9-20) mg/dL Creatinine 0.58 L (0.66-1.25) mg/dL Glucose 215 H (74-99) mg/dL 11/17/24 Range/Units 08:05 WBC (3.8-10.6) k/uL RDW (11.5-15.5) % Sodium 147 H (137-145) mmol/L Potassium 2.8 L (3.5-5.1) mmol/L Chloride 113 H (98-107) mmol/L BUN (9-20) mg/dL Creatinine 0.60 L (0.66-1.25) mg/dL Glucose 204 H (74-99) mg/dL Assessment and Plan Assessment: Acute hypoxemic respiratory failure, currently on BiPAP, chest x-ray showing increased diffuse interstitial densities bilaterally, consider congestive heart failure with pulmonary vascular congestion versus atypical pneumonias. Suspected olecranon bursitis, wound culture positive for methicillin-resistant Staphylococcus aureus. Atrial fibrillation with controlled ventricular response. Hypertension. Severe hypokalemia. Elevated troponins, possibly secondary to supply/demand mismatch. Altered mental status, under investigation, brain CT did not show any acute intracranial bleeding or mass effect. History of lung cancer with metastasis to the brain, S/P chemoradiation. History of seizure disorder. History of polysubstance abuse. Plan: Plan dated November 15, 2024. The patient is seen in room 350. Currently he is on 5 L nasal cannula. He is not receiving any IV fluids. The patient has a BiPAP device in the room, with settings of 10/5, and 40% that he uses intermittently. All labs, x-rays, medications are reviewed. Will go ahead and get a follow-up chest x-ray in the morning. Additional recommendations and suggestions are forthcoming. Initial chest x-ray revealed relatively clear lung ayon, but the more recent x-ray shows some opacification, in the left lung. Prognosis is guarded. CODE STATUS should be addressed by the primary service. 50 minutes was spent with this patient, in the process of gathering data examining the patient, reviewing pert inent laboratory data x-rays, and medications, as well as discussing the diagnosis, treatment, prognosis, with the patient's primary nursing staff. Dictation was produced using [employer] dictation software. Please excuse any grammatical, word or spelling errors. Plan dated November 16, 2024. The patient was seen today in room 350. The patient is currently on 6 L nasal cannula. He is much more awake and alert. No respiratory distress. He is not receiving any IV fluids. The patient does continue on vancomycin. Labs, x- rays, and all medications are reviewed. CODE STATUS should be addressed by the primary service. A chest x-ray will be ordered for the morning. 50 minutes was spent with this patient, in the process of gathering data, examining the patient, reviewing pertinent laboratory data, x-rays, medications, as well as discussing diagnosis, treatment plan, prognosis, with the patient's primary nursing staff, and the patient himself. As mentioned, he was much more awake and alert today. Dictation was produced using [employer] software. Please excuse any grammatical, word or spelling errors. Plan dated November 17, 2024. The patient is seen again in room 350. The patient has developed atrial fibrillation with RVR. The primary service is being contacted, to ask whether or not cardiology can see this patient. Currently, the patient continues on vancomycin, for an infected elbow, with MRSA. CODE STATUS should be addressed by the primary service. All labs, x-rays, and medications are reviewed. The patient is currently on 5 L nasal cannula. He is getting saline at 5 cc an hour. We will continue to follow make recommendations. 50 minutes was spent wi th the patient, which included obtaining additional history, speaking to the bedside nurse, examining the patient, reviewing pertinent laboratory data, x- rays, and medications, as well as discussing the diagnosis, treatment, prognosis, with the patient. We will continue to follow. Dictation was pr oduced using [employer] software. Please excuse any grammatical, word or spelling errors. Time with Patient: Greater than 30
--- NOTE | 2024-11-17 12:26 | P.PN ---
Subjective Progress Note Date: 11/17/24 At today's visit mentation appears to be slowly improving. Patient is A&O x 2. Pt less lethargic during visit. CXR showing improved aeration of the left lung. Continues IV abx for infected elbow. Pt afebrile. WBC 16.3, hgb 14.1, plt 326 Objective - Vital Signs Vital signs: Vital Signs Temp 98.6 F 11/17/24 04:00 Pulse 132 H 11/17/24 04:00 Resp 17 11/17/24 04:00 BP 133/85 11/17/24 04:00 Pulse Ox 96 11/17/24 04:00 FiO2 40 11/17/24 00:46 Intake & Output 11/16/24 11/17/24 11/17/24 18:59 06:59 18:59 Intake Total 750 210 Output Total 1350 Balance -600 210 Weight 62.6 kg Intake: IV 10 Invasive Line 5 10 Oral 750 200 Output: Urine 1350 Other: Voiding Method External Catheter External Catheter - Constitutional General appearance: Present: no acute distress - EENT Eyes: Present: anicteric sclerae ENT: Present: hearing grossly normal - Respiratory Details: breathing is even and unlabored - Cardiovascular Details: skin warm and dry - Integumentary Integumentary: Absent: cyanotic - Neurologic Neurologic Comment(s): confusion improving, lethargic - Labs CBC & Chem 7: 11/17/24 08:05 11/17/24 08:05 Labs: Abnormal Lab Results - Last 24 Hours (Table) 11/16/24 11/16/24 Range/Units 10:44 10:44 WBC 12.6 H (3.8-10.6) k/uL RDW 16.8 H (11.5-15.5) % Sodium 146 H (137-145) mmol/L Potassium 2.6 L* (3.5-5.1) mmol/L Chloride 111 H (98-107) mmol/L BUN 23 H (9-20) mg/dL Creatinine 0.58 L (0.66-1.25) mg/dL Glucose 215 H (74-99) mg/dL - Imaging and Cardiology Chest x-ray: report reviewed Assessment and Plan (1) Altered mental status Current Visit: Yes Status: Acute Priority: High Code(s): R41.82 - ALTERED MENTAL STATUS, UNSPECIFIED SNOMED Code(s): 897973536 (2) Small cell lung cancer Current Visit: Yes Status: Acute Priority: Medium Code(s): C34.90 - MALIGNANT NEOPLASM OF UNSP PART OF UNSP BRONCHUS OR LUNG SNOMED Code(s): 789811137 Plan: Altered mental status -Patient has had similar episodes in the past, usually associated with seizure activity or disease progression in the brain. CT of the head without contrast not reporting any acute or new findings, no reports of seizure activity. -Pt currently being treated for infection, Infectious diseases following. -If patient's mental status does not improve with treatment of infection, may consider MRI of the brain. -Pt has been slowly showing improvement in mentation since admission. Will continue to monitor Small cell lung cancer -Diagnosis and treatment as stated in HPI -Patient has had disease recurrence, all within the brain. Treated with radiation -Patient has been on maintenance immunotherapy treatment for almost 2 years, no progression of disease/new disease -Hold treatment for now, until acute condition treated and resolved
[2024-11-17] MEDS: methylPREDNISolone SOD SUCCI 40 MG/ML 1 ML VIAL IV SCH (15:06)
--- NOTE | 2024-11-17 16:48 | P.PN ---
Subjective Progress Note Date: 11/17/24 Principal diagnosis: Reason for follow-up is left elbow septic olecranon bursitis Patient is a 59-year-old male with a past medical history significant for hypertension seizure disorder atrial fibrillation he did have a metastatic lung cancer has been brought to the hospital for worsening swelling to the left elbow with a culture positive for MRSA concerning for septic olecranon bursitis. On today's evaluation that is 11/17/2024, Patient is afebrile patient is curr ently on 4 L nasal oxygen patient is sleepy lethargic did not answer any question no vomiting diarrhea reported by the sitter at the bedside. Patient white count 16.3, creatinine 0.60 Objective - Vital Signs Vital signs: Vital Signs Temp 98.2 F 11/17/24 16:00 Pulse 116 H 11/17/24 16:00 Resp 18 11/17/24 16:00 BP 142/105 11/17/24 16:00 Pulse Ox 98 11/17/24 16:00 FiO2 40 11/17/24 00:46 Intake & Output 11/16/24 11/17/24 11/17/24 18:59 06:59 18:59 Intake Total 750 210 673 Output Total 1350 550 Balance -600 210 123 Weight 62.6 kg Intake: IV 10 Invasive Line 5 10 Oral 750 200 673 Output: Urine 1350 550 Other: Voiding Method External Catheter External Catheter External Catheter # Bowel Movements 0 - Exam GENERAL DESCRIPTION: Middle-age male lying in bed in no distress RESPIRATORY SYSTEM: Unlabored breathing , decreased breath sounds at bases HEART: S1 S2 regular rate and rhythm , ABDOMEN: Soft , no tenderness EXTREMITIES: Left elbow did have some swelling no drainage was noticed - Labs CBC & Chem 7: 11/17/24 08:05 11/17/24 08:05 Labs: Abnormal Lab Results - Last 24 Hours (Table) 11/17/24 11/17/24 Range/Units 08:05 08:05 WBC 16.3 H (3.8-10.6) k/uL RDW 17.2 H (11.5-15.5) % Sodium 147 H (137-145) mmol/L Potassium 2.8 L (3.5-5.1) mmol/L Chloride 113 H (98-107) mmol/L Creatinine 0.60 L (0.66-1.25) mg/dL Glucose 204 H (74-99) mg/dL Assessment and Plan (1) Septic olecranon bursitis of left elbow Current Visit: Yes Status: Acute Code(s): M71.122 - OTHER INFECTIVE BURSITIS, LEFT ELBOW SNOMED Code(s): 3925702623350591 (2) Allergy to cephalosporin Current Visit: No Status: Acute Code(s): Z88.1 - ALLERGY STATUS TO OTHER ANTIBIOTIC AGENTS SNOMED Code(s): 571712936 (3) MRSA (methicillin resistant Staphylococcus aureus) infection Current Visit: Yes Status: Acute Code(s): A49.02 - METHICILLIN RESIS STAPH INFECTION, UNSP SITE SNOMED Code(s): 234918661 Plan: 1patient being admitted to the hospital for left elbow pain swelling redness he did have a wound with a culture positive for MRSA in the outpatient setting now with concern for left elbow septic olecranon bursitis. 2-patient left elbow swelling has decreased patient currently being treated with vancomycin pharmacy to dose 3leukocytosis more likely steroid related will monitor closely Dictation was produced using [employer] dictation software. please excuse any grammatical, word or spelling errors. Time with Patient: Less than 30
[2024-11-18 06:17] LABS: Anisocytosis Slight; HCT 41.3 % (39.0-53.0); HGB 13.1 gm/dL (13.0-17.5); Hypochromasia Moderate; MCH 30.5 pg (25.0-35.0); MCHC 31.7 g/dL (31.0-37.0); MCV 96.4 fL (80.0-100.0); Macrocytosis Slight; Mean Platelet Volume 8.8; Platelet Count 277 k/uL (150-450); Poikilocytosis Slight; RBC 4.29 m/uL (4.30-5.90); RDW 17.2 % (11.5-15.5); WBC 19.3 k/uL (3.8-10.6)
[2024-11-18 06:55] LABS: African American GFR (CKD) >90 (>60 ml/min/1.73 sqM); Anion Gap 6 mmol/L; Blood Urea Nitrogen 23 mg/dL (9-20); Carbon Dioxide 24 mmol/L (22-30); Chloride 110 mmol/L (98-107); Glucose 164 mg/dL (74-99); Non-African American GFR(CKD) >90 (>60 ml/min/1.73 sqM); Potassium 3.8 mmol/L (3.5-5.1); Sodium 140 mmol/L (137-145)
[2024-11-18] MEDS ORDERED: RX INFO: IV CONTRAST WAS GIVEN 1 EACH MISC MISCELLANE PRN (13:45)
--- NOTE | 2024-11-18 16:59 | P.PN ---
Subjective Progress Note Date: 11/18/24 Patient is a 59-year-old male with past medical history significant for hypertension, atrial fibrillation, polysubstance abuse, seizure disorder, previous ventilator dependent respiratory failure, lung cancer with brain mets status post chemo and radiation. More recently, patient's been following at the wound care center for multiple wounds. He was noted to be confused. Left elbow was erythemic and warm thought to be olecranon bursitis. Wound culture of the left elbow positive for methicillin-resistant Staphylococcus aureus. Sent to the emergency department for IV antibiotics on 11/12/2024. He was admitted to the cardiac stepdown unit. Apparently, noted to have increased work of breathing, and placed on BiPAP. Pulmonary consult was placed. Patient currently being evaluated in room 350. Remains confused, lethargic and will not answer my questions. There is a bedside sitter. Brain CT done on admission did not show any acute intracranial bleeding or mass effect. Postsurgical changes in the right posterior parietal and posterior left parietal occipital lobes with craniotomy. Patient currently on BiPAP with settings 12/6 and FiO2 of 40%. Nonlabored breathing. Achieving adequate tidal volumes. Previous VBG showing a pH of 7.33, pCO2 of 47. Chest x-ray showing diffuse interstitial densities, consider CHF versus atypical pneumonias. Is afebrile. CBC: WBC count 9.6, hemoglobin 14.8, platelets 316. CMP: sodium 142, potassium 2.4, chloride 103, serum bicarb 22, BUN 59, creatinine 1.2, glucose 96. Urinalysis unremarkable for infection. LFTs not elevated. Troponin 0.06. Admission EKG: Atrial fibrillation with controlled ventricular response, rate 81 bpm, RBBB pattern. Current most recent vital signs: Temperature 97.9 F, heart rate 109 bpm, blood pressure 123/75 mmHg, nontachypneic, on the above-mentioned BiPAP settings, SpO2 99%. Progress note dated November 15, 2024. 59-year-old male who is seen today in room 350. He is in bed, on 5 L nasal cannula. The BiPAP device is set at 10/5 and 40%. He is not receiving any IV fluids. The patient has a history of hypertension, atrial fibrillation, polysubstance abuse, seizure disorder, previous ventilator dependent respiratory failure, lung cancer, with brain mets. The patient was transferred over to the hospital, because of an elbow infection, secondary to MRSA, to receive IV antibiotics in the form of vancomycin. Current laboratory data includes a white count 13, hemoglobin 12.2, hematocrit 38.8, and a platelet count of 290,000. Sodium 144, potassium 2.4, chlorides 113, CO2 23, BUN 31, and creatinine 0.61. Glucose is 115. Troponin was 0.036. N-terminal proBNP was 5560. Procalcitonin level was normal at 0.13. Blood cultures are currently negative. Chest x-ray shows significant opacification of the left lung. The right lung looks relatively normal save for possible infiltrate or atelectasis at the right lung base medially. Progress note dated November 16, 2024. 59-year-old male seen today in room 350. The patient is currently on 6 L of oxygen by nasal cannula. The patient is not receiving any fluids. He is receiving vancomycin for his MRSA infection. Clinically, he is a bit more awake and alert today than he was yesterday. Current laboratory data includes a white count 12.6, hemoglobin 13.5, hematocrit 41.6, and a platelet count of 297,000. Sodium 146, potassium 2.6, chlorides 111, CO2 25, anion gap 10, BUN 23, creatinine 0.58. Blood cultures are negative. Progress note dated November 17, 2024. 59-year-old male seen today in room 350. Currently, the patient is on nasal O2, at 5 L. He is getting saline at 5 cc an hour. According to the nurse, the patient has been having tachycardia, i.e. atrial fibrillation with RVR, and the primary service is being notified, so that may be cardiology can see the patient. Currently, white count 16.3, hemoglobin 14.1, hematocrit 44.1, platelet count 3 26,000. Sodium 147, potassium 2.8, chlorides 113, CO2 24, BUN 18, creatinine 0.6. Glucose is 204. Calcium 9.2. Procalcitonin level was normal at 0.13. Blood cultures are negative. Chest x-ray apparently shows improving aeration to the left lung. Patient is being seen for a follow-up. Comfortable on 40 of oxygen by nasal cannula. Quite weak and debilitated. No chest pain. No fever. No chills. Chest x-ray from 11/17/2024 showed improved aeration of the left lung. Denies having any chest pain. Limited cough. No significant sputum production. He r emains atrial fibrillation. He is on amiodarone 200 mg p.o. twice a day and metoprolol 100 mg p.o. daily for rate control. No anticoagulants. He remains on IV vancomycin regarding left olecranon bursitis. On a separate note, the patient is known to have metastatic small cell lung cancer with [employer] involvement. The patient initially presented with altered mental status and a CAT scan of the head showed no evidence of any acute abnormalities. Patient is maintained on immunotherapy with Tecentriq for almost 2 years. No significant progression of disease based on the most recent CAT scan of the chest that was done August 2024. A follow-up CAT scan of the chest will be ordered.Labs from today shows a white cell count of 19.3, hemoglobin 13.1 and platelet count of 277. BUN is 23 with a creatinine of 0.6. Sodium is at 140, bicarb is at 24. Objective - Vital Signs Vital signs: Vital Signs Temp 97.4 F L 11/18/24 12:00 Pulse 91 11/18/24 12:00 Resp 20 11/18/24 12:00 BP 133/95 11/18/24 12:00 Pulse Ox 94 L 11/18/24 12:00 FiO2 40 11/17/24 00:46 Intake & Output 11/17/24 11/18/24 11/18/24 18:59 06:59 18:59 Intake Total 673 Output Total 550 750 400 Balance 123 -750 -400 Weight 64 kg Intake: Oral 673 Output: Urine 550 750 400 Other: Voiding Method External Catheter External Catheter External Catheter # Bowel Movements 0 - Exam No acute distress, somnolent/lethargic, currently on 4 L of oxygen by nasal cannula. Calm and comfortable. HEENT examination is grossly unremarkable. Mucous membranes are moist. No oral lesions. Neck supple. Full range of motion. No adenopathy thyromegaly or neck vein distention. Cardiovascular examination reveals an irregular rhythm and rate. S1-S2 normal. No S3 or S4. No discernible murmur noted. Heart sounds are distant. Lungs reveal tattered rhonchi. Diminished breath sounds on the left. No wheezes or crackles. Abdomen soft bowel sounds are heard. No masses or tenderness. Extremities are intact. No cyanosis clubbing or edema. Skin reveals a left elbow with open superficial wound. Neurologic examination the patient awake alert and communicating. Profound weakness in all 4 extremities. - Labs CBC & Chem 7: 11/18/24 05:49 11/18/24 05:49 Labs: Abnormal Lab Results - Last 24 Hours (Table) 11/18/24 11/18/24 Range/Units 05:49 05:49 WBC 19.3 H (3.8-10.6) k/uL RBC 4.29 L (4.30-5.90) m/uL RDW 17.2 H (11.5-15.5) % Chloride 110 H (98-107) mmol/L BUN 23 H (9-20) mg/dL Glucose 164 H (74-99) mg/dL Microbiology - Last 24 Hours (Table) 11/12/24 12:28 Blood Culture - Final Blood Assessment and Plan Plan: Acute hypoxemic respiratory failure, currently on BiPAP, chest x-ray showing increased diffuse interstitial densities bilaterally, consider congestive heart failure with pulmonary vascular congestion versus atypical pneumonias.Previous echocardiogram from December 2023 had shown a preserved LV function with an ejection fraction of 55 to 60%. There is mild pulmonary hypertension and moderate degree of mitral regurgitation. olecranon bursitis, wound culture positive for methicillin-resistant Staphylococcus aureus. Atrial fibrillation with controlled ventricular response. Metastatic small cell lung cancer, receiving immunotherapy and most recent CAT scan of the brain and a CAT scan of the chest showed no evidence of any active disease. Presented to [facility] on 04/22/22 with increased confusion and disorientation. CT brain without contrast noted 2 large hypodense lesions in bilateral parietal lobes measuring 4.9 x 3.2 cm on the left and 3.3 x 3.1 cm on the right. Initial CXR showed 2.6 cm mass in left mid lung field. He was started on IV dexamethasone. MRI brain on 04/23/22 noted a left 4.9 x 4.8 x 4 cm left cerberal hemisphere lesion and 4.1 x 4.1 cm right cerebral hemisphere lesion. A left cerebellum lesion measured 1.4 x 1.2 x 0.9 cm along with a potential left cerebellar peduncle lesion measuring 5 mm. Transferred to [facility] where he underwent bilateral parietal crainiotomy on 05/06/22, path + lung primary with mixed small cell and adenocarcinoma histology (TTF-1, synaptophysin, chromogranin positive; CK20 positive in small cell component). PET/CT on 05/24/22 reported posterior lateral SERAFIN lung lesion with SUV 4.79, superior left hilar lymphadenopathy with SUV 4.97, and punctate posterior right lung nodule with SUV 1.12. Uptake was also noted at the costovertebral junction and posterior chest, but unclear if this was malignant in nature. He had SRS at [facility] from 05/30/22-06/07/22 receiving 57 Gy in 8 fractions. Had significant improvement in his vision since SRS. He received 4 cycles of carboplatin and etoposide from 07/05/22-09/08/22. Staging CT scans on 09/19/2022 revealed no evidence of disease progression with partial response. Brain MRI July 2022 with no evidence of disease recurrence.Brain MRI on 07/06/2023 revealed no evidence of intracranial metastases. Repeat brain MRI on 08/28/2023 noted new anterior left temporal lobe lesion measuring 1.4 cm. He received 3 fractions of SRS with 27 Gordon from 09/04/2023 through 09/06/2023. Staging CT scans on 10/23/2023 revealed no evidence of metastatic disease. He was admitted to [facility] on 11/07/2023 with seizure and altered mental status was found to have new right temporal lobe lesion measuring 1.2 cm. Completed 3 fractions of SRS to the temporal lobe lesion in early December 2023. He restarted atezolizumab on 12/27/2023. Staging CT scans on 03/06/2024 and brain MRI on 03/18/2024 revealed no evidence of recurrent or metastatic disease. He was previously noted to have cysts of the liver with no lesions concerning for definitive metastatic disease.He did have hospitalizations in May and June 2024 where brain MRI on 05/17/2024 noted stable intracranial lesions that were treated. CT abdomen/pelvis on 06/13/2024 revealed no evidence of malignancy with stable hepatic cysts. CT chest performed on 08/05/2024 revealed no evidence of metastatic disease. He is s/p 25 cycles of maintenance tecentriq. Hypertension. Severe hypokalemia, improved Elevated troponins, possibly secondary to supply/demand mismatch. Altered mental status, under investigation, brain CT did not show any acute intracranial bleeding or mass effect. History of seizure disorder. History of polysubstance abuse. Plan: Titrate O2 to maintain saturation above 90%. The patient is currently off the B iPAP and the patient is currently on 4 L of O2 nasal cannula. Continue vancomycin Obtain follow-up CAT scan of the chest with contrast Continue bronchodilators Continue steroids Management of atrial fibrillation the patient is currently on amiodarone 200 mg p.o., p.o. twice daily and metoprolol 100 mg p.o. daily. No anticoagulants Will continue to follow
--- NOTE | 2024-11-18 17:52 | P.PN ---
Subjective Progress Note Date: 11/18/24 Principal diagnosis: SCLC, AMS In f/u today pt is alert, following commands, on 3.5L NC. No new c/o. Objective - Vital Signs Vital signs: Vital Signs Temp 97.4 F L 11/18/24 12:00 Pulse 91 11/18/24 12:00 Resp 20 11/18/24 12:00 BP 133/95 11/18/24 12:00 Pulse Ox 94 L 11/18/24 12:00 FiO2 40 11/17/24 00:46 Intake & Output 11/17/24 11/18/24 11/18/24 18:59 06:59 18:59 Intake Total 673 Output Total 550 750 400 Balance 123 -750 -400 Weight 64 kg Intake: Oral 673 Output: Urine 550 750 400 Other: Voiding Method External Catheter External Catheter External Catheter # Bowel Movements 0 - Constitutional General appearance: Present: cooperative, no acute distress, thin - EENT Eyes: Present: anicteric sclerae ENT: Present: hearing grossly normal - Respiratory Details: resp mildly labored at rest - Cardiovascular Details: skin warm, ulcerations of the feet noted - Musculoskeletal Musculoskeletal: Present: generalized weakness - Psychiatric Psychiatric: Present: A&O x's 3, appropriate affect, intact judgment & insight - Labs CBC & Chem 7: 11/18/24 05:49 11/18/24 05:49 Labs: Abnormal Lab Results - Last 24 Hours (Table) 11/18/24 11/18/24 Range/Units 05:49 05:49 WBC 19.3 H (3.8-10.6) k/uL RBC 4.29 L (4.30-5.90) m/uL RDW 17.2 H (11.5-15.5) % Chloride 110 H (98-107) mmol/L BUN 23 H (9-20) mg/dL Glucose 164 H (74-99) mg/dL Microbiology - Last 24 Hours (Table) 11/12/24 12:28 Blood Culture - Final Blood Assessment and Plan (1) Altered mental status Current Visit: Yes Status: Acute Priority: High Code(s): R41.82 - ALTERED MENTAL STATUS, UNSPECIFIED SNOMED Code(s): 211163781 (2) Small cell lung cancer Current Visit: Yes Status: Acute Priority: Medium Code(s): C34.90 - MALIGNANT NEOPLASM OF UNSP PART OF UNSP BRONCHUS OR LUNG SNOMED Code(s): 291498509 Plan: Altered mental status -Patient has had similar episodes in the past, usually associated with seizure activity or disease progression in the brain. CT of the head without contrast did not report any acute or new findings, no reports of seizure activity. -Pt currently being treated for infection, Infectious diseases following. -Pt mental status has improved since admit. Hold off on MRI of the brain at this time. Small cell lung cancer -Diagnosis and treatment as stated in consult -Patient has had disease recurrence, all within the brain. Treated with radiation -Patient has been on maintenance immunotherapy treatment for almost 2 years, no progression of disease/new disease -Hold treatment for now, until acute condition treated and resolved -He will cont to have treatment f/u imaging as directed by Med Onc and Rad Onc
--- NOTE | 2024-11-18 22:11 | CT ---
EXAMINATION TYPE: CT chest w con DATE OF EXAM: 11/18/2024 6:19 PM COMPARISON: None. CLINICAL INDICATION: Male, 59 years old with history of small cell lung cancer, lung ca TECHNIQUE: Axial images were obtained at 5 mm thick sections. Reconstructed images are reviewed on [employer] computer in the coronal plane. Contrast used:100 ml mL of Isovue 300 with IV Contrast, (none if empty) Oral contrast used: (none if empty) CT DLP: 278.9 mGycm, Automated exposure control for dose reduction was used. FINDINGS: Portion of the thyroid visualized is normal. There is a small left pleural effusion. Minimal right pleural effusion is present. Bibasilar compress emperatriz atelectasis is likely present. Posterior lateral stranding in the posterior left lung was present previously. No new suspicious dens ities. There are multiple scattered blebs and bulla present bilaterally. No enlarged mediastinal or hilar adenopathy is evident. The ascending aorta diameter at the level o f the main pulmonary artery is 4.4 cm. The main pulmonary artery diameter at the bifurcation is 3.[address] sections are obtained through the upper abdomen. There are couple of hypodensities within the liver likely cysts ectatic cysts present previously IMPRESSION: 1. Small left and minimal right pleural effusion with adjacent compressive atelectasis. 2. Some stranding remains present in the posterior lateral left upper lung field may be the patient's prior lung cancer. No interval growth is evident. [facility], , 11/18/2024 10:08 PM
[2024-11-19] MEDS ORDERED: DEXTROSE 50% SYRINGE 50 ML IVP PRN ×2 (10:33)
[2024-11-19 11:44] LABS: Glucose,Whole Blood 162 mg/dL (70-110)
[2024-11-19] MEDS: VANCOMYCIN TROUGH DUE 1 EACH MISC MISCELLANE ONE (11:49)
[2024-11-19] MEDS: INSULIN ASPART (NovoLOG) 100 UNIT/ML VIAL SQ SCH (12:07)
--- NOTE | 2024-11-19 12:41 | P.PN ---
Subjective Progress Note Date: 11/19/24 Principal diagnosis: SCLC, AMS In f/u today pt is up in chair, needed only standby assist, he is doing well, staes he feels good today. No new c/o. Objective - Vital Signs Vital signs: Vital Signs Temp 97.3 F L 11/19/24 11:45 Pulse 110 H 11/19/24 11:45 Resp 17 11/19/24 11:45 BP 109/76 11/19/24 11:45 Pulse Ox 99 11/19/24 11:45 FiO2 40 11/17/24 00:46 Intake & Output 11/18/24 11/19/24 11/19/24 18:59 06:59 18:59 Intake Total 100 450 Output Total 400 500 Balance -300 -500 450 Weight 66 kg Intake: Oral 100 450 Output: Urine 400 500 Other: Voiding Method External Catheter External Catheter External Catheter # Bowel Movements 1 1 - Constitutional General appearance: Present: cooperative, no acute distress, thin - EENT Eyes: Present: anicteric sclerae ENT: Present: hearing grossly normal - Respiratory Details: resp unlabored at rest - Peripheral edema leg Peripheral Edema: bilateral: None - Integumentary Integumentary Comment(s): multiple skin lesion on legs, left elbow dressing C/D/I - Musculoskeletal Musculoskeletal: Present: generalized weakness - Psychiatric Psychiatric: Present: A&O x's 3, appropriate affect, intact judgment & insight - Labs CBC & Chem 7: 11/18/24 05:49 11/18/24 05:49 Labs: Abnormal Lab Results - Last 24 Hours (Table) 11/19/24 Range/Units 11:43 POC Glucose (mg/dL) 162 H (70-110) mg/dL - Imaging and Cardiology CT scan - chest: report reviewed Assessment and Plan (1) Altered mental status Current Visit: Yes Status: Acute Priority: High Code(s): R41.82 - ALTERED MENTAL STATUS, UNSPECIFIED SNOMED Code(s): 607245932 (2) Small cell lung cancer Current Visit: Yes Status: Acute Priority: Medium Code(s): C34.90 - MALIGNANT NEOPLASM OF UNSP PART OF UNSP BRONCHUS OR LUNG SNOMED Code(s): 420574132 Plan: Altered mental status -Patient has had similar episodes in the past, usually associated with seizure activity or disease progression in the brain. CT of the head without contrast did not report any acute or new findings, no reports of seizure activity. -Pt currently being treated for infection, Infectious diseases following. -Pt mental status has improved since admit. Hold off on MRI of the brain at this time. Small cell lung cancer -Diagnosis and treatment as stated in consult -Patient has had disease recurrence, all within the brain. Treated with radiation -Patient has been on maintenance immunotherapy treatment for almost 2 years, no progression of disease/new disease -Hold treatment for now, until acute condition treated and resolved -CT chest with contrast done, no new disease, small lilly pl effusions -He will cont to have treatment f/u imaging as directed by Med Onc and Rad Onc
--- NOTE | 2024-11-19 13:02 | P.PN ---
Subjective Progress Note Date: 11/18/24 Principal diagnosis: Reason for follow-up is left elbow septic olecranon bursitis Patient is a 59-year-old male with a past medical history significant for hypertension seizure disorder atrial fibrillation he did have a metastatic lung cancer has been brought to the hospital for worsening swelling to the left elbow with a culture positive for MRSA concerning for septic olecranon bursitis. On today's evaluation that is 11/18/2024, patient has been afebrile, patient is more awake and alert today, breathing comfortably and is currently on 4 L nasal cannula oxygen, patient denies having any significant cough no chest pain, patient denies nausea vomiting or diarrhea and no abdominal pain denies any worsening pain to the left elbow area Patient white count is 19.3, creatinine 0.66 Objective - Vital Signs Vital signs: Vital Signs Temp 97.4 F L 11/18/24 12:00 Pulse 91 11/18/24 12:00 Resp 20 11/18/24 12:00 BP 133/95 11/18/24 12:00 Pulse Ox 94 L 11/18/24 12:00 FiO2 40 11/17/24 00:46 Intake & Output 11/17/24 11/18/24 11/18/24 18:59 06:59 18:59 Intake Total 673 Output Total 550 750 400 Balance 123 -750 -400 Weight 64 kg Intake: Oral 673 Output: Urine 550 750 400 Other: Voiding Method External Catheter External Catheter External Catheter # Bowel Movements 0 - Exam GENERAL DESCRIPTION: Middle-age male lying in bed in no distress RESPIRATORY SYSTEM: Unlabored breathing , decreased breath sounds at bases HEART: S1 S2 regular rate and rhythm , ABDOMEN: Soft , no tenderness EXTREMITIES: Left elbow did have some swelling no drainage was noticed - Labs CBC & Chem 7: 11/18/24 05:49 11/18/24 05:49 Labs: Abnormal Lab Results - Last 24 Hours (Table) 11/18/24 11/18/24 Range/Units 05:49 05:49 WBC 19.3 H (3.8-10.6) k/uL RBC 4.29 L (4.30-5.90) m/uL RDW 17.2 H (11.5-15.5) % Chloride 110 H (98-107) mmol/L BUN 23 H (9-20) mg/dL Glucose 164 H (74-99) mg/dL Microbiology - Last 24 Hours (Table) 11/12/24 12:28 Blood Culture - Final Blood Assessment and Plan (1) Septic olecranon bursitis of left elbow Current Visit: Yes Status: Acute Code(s): M71.122 - OTHER INFECTIVE BURSITIS, LEFT ELBOW SNOMED Code(s): 6708354299236527 (2) Allergy to cephalosporin Current Visit: No Status: Acute Code(s): Z88.1 - ALLERGY STATUS TO OTHER ANTIBIOTIC AGENTS SNOMED Code(s): 839840350 (3) MRSA (methicillin resistant Staphylococcus aureus) infection Current Visit: Yes Status: Acute Code(s): A49.02 - METHICILLIN RESIS STAPH INFECTION, UNSP SITE SNOMED Code(s): 904670208 Plan: 1patient being admitted to the hospital for left elbow pain swelling redness he did have a wound with a culture positive for MRSA in the outpatient setting now with concern for left elbow septic olecranon bursitis. 2leukocytosis more likely steroid related will monitor closely 3--patient left elbow swelling has decreased patient currently being treated with vancomycin pharmacy to dose and will monitor his vancomycin trough closely as well as creatinine Dictation was produced using [email or web address] dictation software. please excuse any grammatical, word or spelling errors. Time with Patient: Less than 30
--- NOTE | 2024-11-19 13:03 | P.PN ---
Subjective Progress Note Date: 11/19/24 Principal diagnosis: Reason for follow-up is left elbow septic olecranon bursitis Patient is a 59-year-old male with a past medical history significant for hypertension seizure disorder atrial fibrillation he did have a metastatic lung cancer has been brought to the hospital for worsening swelling to the left elbow with a culture positive for MRSA concerning for septic olecranon bursitis. On today's evaluation that is 11/19/2024, Patient is afebrile this morning pa jmnt denies having any chest pain breathing more comfortably occasional cough no abdominal pain no worsening pain to the left elbow area. Patient did have vancomycin trough of 21.1 no CBC was done today- Objective - Vital Signs Vital signs: Vital Signs Temp 97.3 F L 11/19/24 11:45 Pulse 110 H 11/19/24 11:45 Resp 17 11/19/24 11:45 BP 109/76 11/19/24 11:45 Pulse Ox 99 11/19/24 11:45 FiO2 40 11/17/24 00:46 Intake & Output 11/18/24 11/19/24 11/19/24 18:59 06:59 18:59 Intake Total 100 450 Output Total 400 500 Balance -300 -500 450 Weight 66 kg Intake: Oral 100 450 Output: Urine 400 500 Other: Voiding Method External Catheter External Catheter External Catheter # Bowel Movements 1 1 - Exam GENERAL DESCRIPTION: Middle-age male lying in bed in no distress RESPIRATORY SYSTEM: Unlabored breathing , decreased breath sounds at bases HEART: S1 S2 regular rate and rhythm , ABDOMEN: Soft , no tenderness EXTREMITIES: Left elbow did have some swelling no drainage was noticed - Labs CBC & Chem 7: 11/18/24 05:49 11/18/24 05:49 Labs: Abnormal Lab Results - Last 24 Hours (Table) 11/19/24 Range/Units 11:43 POC Glucose (mg/dL) 162 H (70-110) mg/dL Assessment and Plan (1) Septic olecranon bursitis of left elbow Current Visit: Yes Status: Acute Code(s): M71.122 - OTHER INFECTIVE BURSITIS, LEFT ELBOW SNOMED Code(s): 5345209260733035 (2) Allergy to cephalosporin Current Visit: No Status: Acute Code(s): Z88.1 - ALLERGY STATUS TO OTHER ANTIBIOTIC AGENTS SNOMED Code(s): 235504905 (3) MRSA (methicillin resistant Staphylococcus aureus) infection Current Visit: Yes Status: Acute Code(s): A49.02 - METHICILLIN RESIS STAPH INFECTION, UNSP SITE SNOMED Code(s): 788362611 Plan: 1patient being admitted to the hospital for left elbow pain swelling redness he did have a wound with a culture positive for MRSA in the outpatient setting now with concern for left elbow septic olecranon bursitis. 2leukocytosis more likely steroid related will monitor closely 3--patient left elbow swelling has decreased patient currently being treated with vancomycin pharmacy to dose with a Vanco trough of 21.1 plan is to transition to oral Zyvox on discharge Dictation was produced using [email or web address] dictation software. please excuse any gram matical, word or spelling errors. Time with Patient: Less than 30
[2024-11-19] MEDS: VANCOMYCIN 1,000 MG in SODIUM CHLORIDE 0.9% 250 ML IVPB SCH (13:28)
[2024-11-19] MEDS: predniSONE 20 MG TAB PO SCH (15:30)
[2024-11-19 16:33] LABS: Glucose,Whole Blood 229 mg/dL (70-110)
--- NOTE | 2024-11-19 18:19 | P.PN ---
Subjective Progress Note Date: 11/19/24 Patient is a 59-year-old male with past medical history significant for hypertension, atrial fibrillation, polysubstance abuse, seizure disorder, previous ventilator dependent respiratory failure, lung cancer with brain mets status post chemo and radiation. More recently, patient's been following at the wound care center for multiple wounds. He was noted to be confused. Left elbow was erythemic and warm thought to be olecranon bursitis. Wound culture of the left elbow positive for methicillin-resistant Staphylococcus aureus. Sent to the emergency department for IV antibiotics on 11/12/2024. He was admitted to the cardiac stepdown unit. Apparently, noted to have increased work of breathing, and placed on BiPAP. Pulmonary consult was placed. Patient currently being evaluated in room 350. Remains confused, lethargic and will not answer my questions. There is a bedside sitter. Brain CT done on admission did not show any acute intracranial bleeding or mass effect. Postsurgical changes in the right posterior parietal and posterior left parietal occipital lobes with craniotomy. Patient currently on BiPAP with settings 12/6 and FiO2 of 40%. Nonlabored breathing. Achieving adequate tidal volumes. Previous VBG showing a pH of 7.33, pCO2 of 47. Chest x-ray showing diffuse interstitial densities, consider CHF versus atypical pneumonias. Is afebrile. CBC: WBC count 9.6, hemoglobin 14.8, platelets 316. CMP: sodium 142, potassium 2.4, chloride 103, serum bicarb 22, BUN 59, creatinine 1.2, glucose 96. Urinalysis unremarkable for infection. LFTs not elevated. Troponin 0.06. Admission EKG: Atrial fibrillation with controlled ventricular response, rate 81 bpm, RBBB pattern. Current most recent vital signs: Temperature 97.9 F, heart rate 109 bpm, blood pressure 123/75 mmHg, nontachypneic, on the above-mentioned BiPAP settings, SpO2 99%. Progress note dated November 15, 2024. 59-year-old male who is seen today in room 350. He is in bed, on 5 L nasal cannula. The BiPAP device is set at 10/5 and 40%. He is not receiving any IV fluids. The patient has a history of hypertension, atrial fibrillation, polysubstance abuse, seizure disorder, previous ventilator dependent respiratory failure, lung cancer, with brain mets. The patient was transferred over to the hospital, because of an elbow infection, secondary to MRSA, to receive IV antibiotics in the form of vancomycin. Current laboratory data includes a white count 13, hemoglobin 12.2, hematocrit 38.8, and a platelet count of 290,000. Sodium 144, potassium 2.4, chlorides 113, CO2 23, BUN 31, and creatinine 0.61. Glucose is 115. Troponin was 0.036. N-terminal proBNP was 5560. Procalcitonin level was normal at 0.13. Blood cultures are currently negative. Chest x-ray shows significant opacification of the left lung. The right lung looks relatively normal save for possible infiltrate or atelectasis at the right lung base medially. Progress note dated November 16, 2024. 59-year-old male seen today in room 350. The patient is currently on 6 L of oxygen by nasal cannula. The patient is not receiving any fluids. He is receiving vancomycin for his MRSA infection. Clinically, he is a bit more awake and alert today than he was yesterday. Current laboratory data includes a white count 12.6, hemoglobin 13.5, hematocrit 41.6, and a platelet count of 297,000. Sodium 146, potassium 2.6, chlorides 111, CO2 25, anion gap 10, BUN 23, creatinine 0.58. Blood cultures are negative. Progress note dated November 17, 2024. 59-year-old male seen today in room 350. Currently, the patient is on nasal O2, at 5 L. He is getting saline at 5 cc an hour. According to the nurse, the patient has been having tachycardia, i.e. atrial fibrillation with RVR, and the primary service is being notified, so that may be cardiology can see the patient. Currently, white count 16.3, hemoglobin 14.1, hematocrit 44.1, platelet count 3 26,000. Sodium 147, potassium 2.8, chlorides 113, CO2 24, BUN 18, creatinine 0.6. Glucose is 204. Calcium 9.2. Procalcitonin level was normal at 0.13. Blood cultures are negative. Chest x-ray apparently shows improving aeration to the left lung. Patient is being seen for a follow-up. Comfortable on 40 of oxygen by nasal cannula. Quite weak and debilitated. No chest pain. No fever. No chills. Chest x-ray from 11/17/2024 showed improved aeration of the left lung. Denies having any chest pain. Limited cough. No significant sputum production. He r emains atrial fibrillation. He is on amiodarone 200 mg p.o. twice a day and metoprolol 100 mg p.o. daily for rate control. No anticoagulants. He remains on IV vancomycin regarding left olecranon bursitis. On a separate note, the patient is known to have metastatic small cell lung cancer with [employer] involvement. The patient initially presented with altered mental status and a CAT scan of the head showed no evidence of any acute abnormalities. Patient is maintained on immunotherapy with Tecentriq for almost 2 years. No significant progression of disease based on the most recent CAT scan of the chest that was done August 2024. A follow-up CAT scan of the chest will be ordered.Labs from today shows a white cell count of 19.3, hemoglobin 13.1 and platelet count of 277. BUN is 23 with a creatinine of 0.6. Sodium is at 140, bicarb is at 24. On 11/19/2024, the patient is feeling better compared to yesterday. He feels less short of breath. He is currently on 3 Suboxone by nasal cannula with a pulse ox of 98 to 99%. The patient underwent a CAT scan of the chest with contrast on 11/18/2024. I reviewed the CAT scan images. There is a small left and minimal right-sided pleural effusion along with some adjacent atelectasis. There is also some scar in the left upper lobe reminiscent of a previous lung cancer. Otherwise, there is no active disease noted. The patient otherwise has no specific complaints. He is still on vancomycin regarding a left olecranon bursitis. [facility] IV Solu-Medrol is to be discontinued today. No significant cough chest tightness or wheezing noted on today's examination. Objective - Vital Signs Vital signs: Vital Signs Temp 97.3 F L 11/19/24 11:45 Pulse 110 H 11/19/24 11:45 Resp 17 11/19/24 11:45 BP 109/76 11/19/24 11:45 Pulse Ox 99 11/19/24 11:45 FiO2 40 11/17/24 00:46 Intake & Output 11/18/24 11/19/24 11/19/24 18:59 06:59 18:59 Intake Total 100 450 Output Total 400 500 Balance -300 -500 450 Weight 66 kg Intake: Oral 100 450 Output: Urine 400 500 Other: Voiding Method External Catheter External Catheter External Catheter # Bowel Movements 1 1 - Exam No acute distress, somnolent/lethargic, currently on 3 L of oxygen by nasal surya darrell. Calm and comfortable. HEENT examination is grossly unremarkable. Mucous membranes are moist. No oral lesions. Neck supple. Full range of motion. No adenopathy thyromegaly or neck vein dist ention. Cardiovascular examination reveals an irregular rhythm and rate. S1-S2 normal. No S3 or S4. No discernible murmur noted. Heart sounds are distant. Lungs reveal tattered rhonchi. Diminished breath sounds on the left. No wheezes or crackles. Abdomen soft bowel sounds are heard. No masses or tenderness. Extremities are intact. No cyanosis clubbing or edema. Skin reveals a left elbow with open superficial wound. Neurologic examination the patient awake alert and communicating. Profound weakness in all 4 extremities. - Labs CBC & Chem 7: 11/18/24 05:49 11/18/24 05:49 Labs: Abnormal Lab Results - Last 24 Hours (Table) 11/19/24 Range/Units 11:43 POC Glucose (mg/dL) 162 H (70-110) mg/dL Assessment and Plan Plan: Acute hypoxemic respiratory failure, currently o off BiPAP on 3 L of oxygen by nasal cannula., chest x-ray showing increased diffuse interstitial densities bilaterally, consider congestive heart failure with pulmonary vascular conges tion versus atypical pneumonias.Previous echocardiogram from December 2023 had shown a preserved LV function with an ejection fraction of 55 to 60%. There is mild pulmonary hypertension and moderate degree of mitral regurgitation. CAT scan of the chest done on 11/18/2024 showed small bilateral pleural effusion with adjacent atelectasis. No evidence of any tumor progression. olecranon bursitis, wound culture positive for methicillin-resistant Staphylococcus aureus. Atrial fibrillation with controlled ventricular response. Metastatic small cell lung cancer, receiving immunotherapy and most recent CAT scan of the brain and a CAT scan of the chest showed no evidence of any active disease. Presented to [facility] on 04/22/22 with increased confusion and disorientation. CT brain without contrast noted 2 large hypodense lesions in bilateral parietal lobes measuring 4.9 x 3.2 cm on the left and 3.3 x 3.1 cm on the right. Initial CXR showed 2.6 cm mass in left mid lung field. He was started on IV dexamethasone. MRI brain on 04/23/22 noted a left 4.9 x 4.8 x 4 cm left cerberal hemisphere lesion and 4.1 x 4.1 cm right cerebral hemisphere lesion. A left cerebellum lesion measured 1.4 x 1.2 x 0.9 cm along with a potential left cerebellar peduncle lesion measuring 5 mm. Transferred to [facility] where he underwent bilateral parietal crainiotomy on 05/06/22, path + lung primary with mixed small cell and adenocarcinoma histology (TTF-1, synaptophysin, chromogranin positive; CK20 positive in small cell component). PET/CT on 05/24/22 reported posterior lateral SERAFIN lung lesion with SUV 4.79, superior left hilar lymphadenopathy with SUV 4.97, and punctate posterior right lung nodule with SUV 1.12. Uptake was also noted at the costovertebral junction and posterior chest, but unclear if this was malignant in nature. He had SRS at [facility] from 05/30/22-06/07/22 receiving 57 Gy in 8 fractions. Had significant improvement in his vision since SRS. He received 4 cycles of carboplatin and etoposide from 07/05/22-09/08/22. Staging CT scans on 09/19/2022 revealed no evidence of disease progression with partial response. Brain MRI July 2022 with no evidence of disease recurrence.Brain MRI on 07/06/2023 revealed no evidence of intracranial metastases. Repeat brain MRI on 08/28/2023 noted new anterior left temporal lobe lesion measuring 1.4 cm. He received 3 fractions of SRS with 27 Gordon from 09/04/2023 through 09/06/2023. Staging CT scans on 10/23/2023 revealed no evidence of metastatic disease. He was admitted to [facility] on 11/07/2023 with seizure and altered mental status was found to have new right temporal lobe lesion measuring 1.2 cm. Completed 3 fractions of SRS to the temporal lobe lesion in early December 2023. He restarted atezolizumab on . Staging CT scans on 03/06/2024 and brain MRI on 03/18/2024 revealed no evidence of recurrent or metastatic disease. He was previously noted to have cysts of the liver with no lesions concerning for definitive metastatic disease.He did have hospitalizations in May and June 2024 where brain MRI on 05/17/2024 noted stable intracranial lesions that were treated. CT abdomen/pelvis on 06/13/2024 revealed no evidence of malignancy with stable hepatic cysts. CT chest performed on 08/05/2024 revealed no evidence of metastatic disease. He is s/p 25 cycles of maintenance tecentriq. CAT scan of the chest done on 11/18/2024 shows no evidence of any residual tumor or tumor progression. Hypertension. Severe hypokalemia, improved Elevated troponins, possibly secondary to supply/demand mismatch. Altered mental status, under investigation, brain CT did not show any acute intracranial bleeding or mass effect. History of seizure disorder. History of polysubstance abuse. Plan: Titrate O2 to maintain saturation above 90%. The patient is currently off the BiPAP and the patient is currently on 3 L of O2 nasal cannula. Continue vancomycin CAT scan of the chest was noted and there is no evidence of any residual malignancy. Small bilateral pleural effusions were noted Continue bronchodilators Continue steroids discontinue IV Solu-Medrol management of atrial fibrillation the patient is currently on amiodarone 200 mg p.o., p.o. twice daily and metoprolol 100 mg p.o. daily. No anticoagulants Will continue to follow Time with Patient: Greater than 30
[2024-11-19 20:52] LABS: Glucose,Whole Blood 204 mg/dL (70-110)
--- NOTE | 2024-11-20 00:35 | PN ---
PROGRESS NOTE DATE OF SERVICE: 11/17/2024 CHIEF COMPLAINT: Metastatic CA of the lung, semicoma, and hypokalemia. HISTORY OF PRESENT ILLNESS: This gentleman remains fairly unchanged. He is slightly arousable. He has had a tachycardia of around 160 beats per minute. His amiodarone was increased and he has been started on a beta giovanna. His pulse is now down to around 116. His white count is 16,300. PHYSICAL EXAMINATION: VITAL SIGNS: Blood pressure is 145/105 with a pulse of 116. GENERAL: He remains chronically ill and only semi alert. Color is poor. CHEST: Breath sounds are heard bilaterally. CARDIAC: Unremarkable. ABDOMEN: Flat. EXTREMITIES: Revealed his multiple ulcers. IMPRESSION: 1. Metastatic carcinoma of the lung. 2. Chronic obstructive pulmonary disease. 3. Tachycardia. 4. Leukocytosis. 5. Hypertension. PLAN: Continue supportive care and continue with monitoring his potassium. A spot urine potassium has been ordered. MMODL / IJN: [id number] /
--- NOTE | 2024-11-20 01:02 | PN ---
PROGRESS NOTE DATE OF SERVICE: 11/18/2024 CHIEF COMPLAINT: Metastatic carcinoma of the lung with hypokalemia and semicoma. HISTORY OF PRESENT ILLNESS: This gentleman is about the same. He may be slightly more arousable. There has been no change otherwise. His potassium is up to 3.8. White count is elevated slightly to 19,300. PHYSICAL EXAMINATION: CHEST: Breath sounds are heard bilaterally. CARDIAC: Normal. ABDOMEN: Soft. LEGS: Dressed to where he has the ulcers. IMPRESSION: 1. Metastatic carcinoma of the right lung. 2. Chronic obstructive pulmonary disease. 3. Mental status changes. 4. Hypokalemia. 5. Dehydration. 6. Necrotic ulcers in the lower extremities. PLAN: Continue with current management and he does seem to be slowly improving. MMODL / IJN: [id number] /
--- NOTE | 2024-11-20 01:23 | PN ---
PROGRESS NOTE DATE OF SERVICE: 11/19/2024 CHIEF COMPLAINT: Metastatic carcinoma of the lung with semicoma. HISTORY OF PRESENT ILLNESS: This gentleman is doing a lot better. He is suddenly more awake and alert. He is not complaining of any significant problems such as shortness of breath or pain. PHYSICAL EXAMINATION: GENERAL: He is definitely more awake and alert. He is oriented. CHEST: Demonstrates poor breath sounds on the right. CARDIAC: Normal. ABDOMEN: Soft, nontender. IMPRESSION: 1. Mental status changes. 2. Metastatic carcinoma of the lung. 3. Dehydration. 4. Hypokalemia. 5. Ischemic ulcers in the lower extremities. PLAN: 1. Increase activity as possible. 2. Discharge planning. MMODL / IJN: [id number] /
[2024-11-20] MEDS: VANCOMYCIN 1,000 MG in SODIUM CHLORIDE 0.9% 250 ML IVPB SCH (03:00)
[2024-11-20 06:08] LABS: Glucose,Whole Blood 102 mg/dL (70-110)
[2024-11-20 08:04] LABS: African American GFR (CKD) >90 (>60 ml/min/1.73 sqM); Non-African American GFR(CKD) >90 (>60 ml/min/1.73 sqM)
[2024-11-20 11:34] LABS: Glucose,Whole Blood 188 mg/dL (70-110)
--- NOTE | 2024-11-20 12:00 | P.PN ---
Subjective Progress Note Date: 11/20/24 Principal diagnosis: Reason for follow-up is left elbow septic olecranon bursitis Patient is a 59-year-old male with a past medical history significant for hypertension seizure disorder atrial fibrillation he did have a metastatic lung cancer has been brought to the hospital for worsening swelling to the left elbow with a culture positive for MRSA concerning for septic olecranon bursitis. On today's evaluation that is 11/20/2024,the patient denies any fever or any chills, patient is breathing comfortably on 3 L nasal cannula oxygen, the patient denies chest pain shortness of breath and no significant cough, patient denies abdominal pain, no nausea vomiting or diarrhea. Still complaining some pain to the left rib area but no worsening pain or drainage. Patient did have a creatinine 0.69 no CBC was done today blood culture has been negative Objective - Vital Signs Vital signs: Vital Signs Temp 97.5 F L 11/20/24 07:56 Pulse 94 11/20/24 11:42 Resp 16 11/20/24 11:11 BP 115/70 11/20/24 11:11 Pulse Ox 98 11/20/24 11:11 FiO2 40 11/17/24 00:46 Intake & Output 11/19/24 11/20/24 11/20/24 18:59 06:59 18:59 Intake Total 630 80 480 Output Total 300 300 650 Balance 330 -220 -170 Weight 66 kg 70 kg Intake: IV 80 0.9 80 Oral 630 480 Output: Urine 300 300 650 Other: Voiding Method External Catheter External Catheter External Catheter # Bowel Movements 1 2 1 - Exam GENERAL DESCRIPTION: Middle-age male lying in bed in no distress RESPIRATORY SYSTEM: Unlabored breathing , decreased breath sounds at bases HEART: S1 S2 regular rate and rhythm , ABDOMEN: Soft , no tenderness EXTREMITIES: Left elbow did have some swelling no drainage was noticed - Labs CBC & Chem 7: 11/18/24 05:49 11/20/24 07:12 Labs: Abnormal Lab Results - Last 24 Hours (Table) 11/19/24 11/19/24 11/20/24 Range/Units 16:31 20:51 07:12 POC Glucose (mg/dL) 229 H 204 H (70-110) mg/dL Hemoglobin A1c 7.2 H (<=6.0) % 11/20/24 Range/Units 11:33 POC Glucose (mg/dL) 188 H (70-110) mg/dL Hemoglobin A1c (<=6.0) % Assessment and Plan (1) Septic olecranon bursitis of left elbow Current Visit: Yes Status: Acute Code(s): M71.122 - OTHER INFECTIVE BURSITIS, LEFT ELBOW SNOMED Code(s): 9492851204474370 (2) Allergy to cephalosporin Current Visit: No Status: Acute Code(s): Z88.1 - ALLERGY STATUS TO OTHER ANTIBIOTIC AGENTS SNOMED Code(s): 161582576 (3) MRSA (methicillin resistant Staphylococcus aureus) infection Current Visit: Yes Status: Acute Code(s): A49.02 - METHICILLIN RESIS STAPH INFECTION, UNSP SITE SNOMED Code(s): 519285281 Plan: 1patient being admitted to the hospital for left elbow pain swelling redness he did have a wound with a culture positive for MRSA in the outpatient setting now with concern for left elbow septic olecranon bursitis. 2leukocytosis more likely steroid related will monitor closely 3--patient remains to be afebrile left elbow swelling has decreased no drainage, will treat with vancomycin pharmacy to dose while inpatient however plan is to transition to oral Zyvox on discharge Dictation was produced using [employer] dictation software. please excuse any grammatical, word or spelling errors. Time with Patient: Less than 30
[2024-11-20 12:49] LABS: Anisocytosis Slight; Basophils # (A) 0.1 k/uL (0-0.2); Basophils % (A) 0 %; Eosinophils # (A) 0.1 k/uL (0-0.7); Eosinophils % (A) 0 %; HCT 45.1 % (39.0-53.0); HGB 13.7 gm/dL (13.0-17.5); Hypochromasia Moderate; Lymphocytes # (A) 0.6 k/uL (1.0-4.8); Lymphocytes % (A) 4 %; MCH 29.6 pg (25.0-35.0); MCHC 30.3 g/dL (31.0-37.0); MCV 97.5 fL (80.0-100.0); Macrocytosis Slight; Mean Platelet Volume 8.7; Monocytes # (A) 0.6 k/uL (0-1.0); Monocytes % (A) 3 %; Neutrophils # (A) 16.6 k/uL (1.3-7.7); Neutrophils % (A) 91 %; Platelet Count 289 k/uL (150-450); Poikilocytosis Slight; RBC 4.63 m/uL (4.30-5.90); WBC 18.2 k/uL (3.8-10.6)
[2024-11-20 13:35] LABS: ALT 36 U/L (4-49); AST 29 U/L (17-59); African American GFR (CKD) >90 (>60 ml/min/1.73 sqM); Alkaline Phosphatase 66 U/L (38-126); Anion Gap 9 mmol/L; Blood Urea Nitrogen 30 mg/dL (9-20); Carbon Dioxide 17 mmol/L (22-30); Chloride 110 mmol/L (98-107); Glucose 257 mg/dL (74-99); Non-African American GFR(CKD) >90 (>60 ml/min/1.73 sqM); Potassium 3.9 mmol/L (3.5-5.1); Sodium 136 mmol/L (137-145); Total Bilirubin 0.4 mg/dL (0.2-1.3); Total Protein 5.2 g/dL (6.3-8.2)
[2024-11-20 16:36] LABS: Glucose,Whole Blood 205 mg/dL (70-110)
--- NOTE | 2024-11-20 17:58 | P.PN ---
Subjective Progress Note Date: 11/20/24 Patient is a 59-year-old male with past medical history significant for hypertension, atrial fibrillation, polysubstance abuse, seizure disorder, previous ventilator dependent respiratory failure, lung cancer with brain mets status post chemo and radiation. More recently, patient's been following at the wound care center for multiple wounds. He was noted to be confused. Left elbow was erythemic and warm thought to be olecranon bursitis. Wound culture of the left elbow positive for methicillin-resistant Staphylococcus aureus. Sent to the emergency department for IV antibiotics on 11/12/2024. He was admitted to the cardiac stepdown unit. Apparently, noted to have increased work of breathing, and placed on BiPAP. Pulmonary consult was placed. Patient currently being evaluated in room 350. Remains confused, lethargic and will not answer my questions. There is a bedside sitter. Brain CT done on admission did not show any acute intracranial bleeding or mass effect. Postsurgical changes in the right posterior parietal and posterior left parietal occipital lobes with craniotomy. Patient currently on BiPAP with settings 12/6 and FiO2 of 40%. Nonlabored breathing. Achieving adequate tidal volumes. Previous VBG showing a pH of 7.33, pCO2 of 47. Chest x-ray showing diffuse interstitial densities, consider CHF versus atypical pneumonias. Is afebrile. CBC: WBC count 9.6, hemoglobin 14.8, platelets 316. CMP: sodium 142, potassium 2.4, chloride 103, serum bicarb 22, BUN 59, creatinine 1.2, glucose 96. Urinalysis unremarkable for infection. LFTs not elevated. Troponin 0.06. Admission EKG: Atrial fibrillation with controlled ventricular response, rate 81 bpm, RBBB pattern. Current most recent vital signs: Temperature 97.9 F, heart rate 109 bpm, blood pressure 123/75 mmHg, nontachypneic, on the above-mentioned BiPAP settings, SpO2 99%. Progress note dated November 15, 2024. 59-year-old male who is seen today in room 350. He is in bed, on 5 L nasal cannula. The BiPAP device is set at 10/5 and 40%. He is not receiving any IV fluids. The patient has a history of hypertension, atrial fibrillation, polysubstance abuse, seizure disorder, previous ventilator dependent respiratory failure, lung cancer, with brain mets. The patient was transferred over to the hospital, because of an elbow infection, secondary to MRSA, to receive IV antibiotics in the form of vancomycin. Current laboratory data includes a white count 13, hemoglobin 12.2, hematocrit 38.8, and a platelet count of 290,000. Sodium 144, potassium 2.4, chlorides 113, CO2 23, BUN 31, and creatinine 0.61. Glucose is 115. Troponin was 0.036. N-terminal proBNP was 5560. Procalcitonin level was normal at 0.13. Blood cultures are currently negative. Chest x-ray shows significant opacification of the left lung. The right lung looks relatively normal save for possible infiltrate or atelectasis at the right lung base medially. Progress note dated November 16, 2024. 59-year-old male seen today in room 350. The patient is currently on 6 L of oxygen by nasal cannula. The patient is not receiving any fluids. He is receiving vancomycin for his MRSA infection. Clinically, he is a bit more awake and alert today than he was yesterday. Current laboratory data includes a white count 12.6, hemoglobin 13.5, hematocrit 41.6, and a platelet count of 297,000. Sodium 146, potassium 2.6, chlorides 111, CO2 25, anion gap 10, BUN 23, creatinine 0.58. Blood cultures are negative. Progress note dated November 17, 2024. 59-year-old male seen today in room 350. Currently, the patient is on nasal O2, at 5 L. He is getting saline at 5 cc an hour. According to the nurse, the patient has been having tachycardia, i.e. atrial fibrillation with RVR, and the primary service is being notified, so that may be cardiology can see the patient. Currently, white count 16.3, hemoglobin 14.1, hematocrit 44.1, platelet count 3 26,000. Sodium 147, potassium 2.8, chlorides 113, CO2 24, BUN 18, creatinine 0.6. Glucose is 204. Calcium 9.2. Procalcitonin level was normal at 0.13. Blood cultures are negative. Chest x-ray apparently shows improving aeration to the left lung. Patient is being seen for a follow-up. Comfortable on 40 of oxygen by nasal cannula. Quite weak and debilitated. No chest pain. No fever. No chills. Chest x-ray from 11/17/2024 showed improved aeration of the left lung. Denies having any chest pain. Limited cough. No significant sputum production. He r emains atrial fibrillation. He is on amiodarone 200 mg p.o. twice a day and metoprolol 100 mg p.o. daily for rate control. No anticoagulants. He remains on IV vancomycin regarding left olecranon bursitis. On a separate note, the patient is known to have metastatic small cell lung cancer with [employer] involvement. The patient initially presented with altered mental status and a CAT scan of the head showed no evidence of any acute abnormalities. Patient is maintained on immunotherapy with Tecentriq for almost 2 years. No significant progression of disease based on the most recent CAT scan of the chest that was done August 2024. A follow-up CAT scan of the chest will be ordered.Labs from today shows a white cell count of 19.3, hemoglobin 13.1 and platelet count of 277. BUN is 23 with a creatinine of 0.6. Sodium is at 140, bicarb is at 24. On 11/19/2024, the patient is feeling better compared to yesterday. He feels less short of breath. He is currently on 3 Suboxone by nasal cannula with a pulse ox of 98 to 99%. The patient underwent a CAT scan of the chest with contrast on 11/18/2024. I reviewed the CAT scan images. There is a small left and minimal right-sided pleural effusion along with some adjacent atelectasis. There is also some scar in the left upper lobe reminiscent of a previous lung cancer. Otherwise, there is no active disease noted. The patient otherwise has no specific complaints. He is still on vancomycin regarding a left olecranon bursitis. He remains on DuoNeb updrafts. IV Solu-Medrol is to be discontinued today. No significant cough chest tightness or wheezing noted on today's examination. On 11/20/2024, the patient is clinically stable. Remains atrial fibrillation. Oxygenation is further improved and the patient is currently on 3 L of oxygen by nasal cannula and I suggested weaning the FiO2 further., Comfortable with no respiratory distress. The white cell count of 18.2, slightly improved compared to yesterday with a hemoglobin 15.7 and a platelet count of 289. Serum bicarb is at 17. Sodium with a catheter 0.6 and a sodium levels at 136. The patient remains on DuoNeb nebulized treatments [id number]. The patient remains on prednisone burst taper. Remains on vancomycin regarding left olecranon bursitis. In regards to his atrial fibrillation, he is on metoprolol 100 mg p.o. daily amiodarone 200 mg p.o. twice a day. No anticoagulants for now. Objective - Vital Signs Vital signs: Vital Signs Temp 97.5 F L 11/20/24 07:56 Pulse 94 11/20/24 11:42 Resp 16 11/20/24 11:11 BP 115/70 11/20/24 11:11 Pulse Ox 98 11/20/24 11:11 FiO2 40 11/17/24 00:46 Intake & Output 11/19/24 11/20/24 11/20/24 18:59 06:59 18:59 Intake Total 630 80 480 Output Total 300 300 650 Balance 330 -220 -170 Weight 66 kg 70 kg Intake: IV 80 0.9 80 Oral 630 480 Output: Urine 300 300 650 Other: Voiding Method External Catheter External Catheter External Catheter # Bowel Movements 1 2 1 - Exam No acute distress, somnolent/lethargic, currently on 3 L of oxygen by nasal cannula. Calm and comfortable. HEENT examination is grossly unremarkable. Mucous membranes are moist. No oral lesions. Neck supple. Full range of motion. No adenopathy thyromegaly or neck vein distention. Cardiovascular examination reveals an irregular rhythm and rate. S1-S2 normal. No S3 or S4. No discernible murmur noted. Heart sounds are distant. Lungs reveal tattered rhonchi. Diminished breath sounds on the left. No wheezes or crackles. Abdomen soft bowel sounds are heard. No masses or tenderness. Extremities are intact. No cyanosis clubbing or edema. Skin reveals a left elbow with open superficial wound. Neurologic examination the patient awake alert and communicating. Profound weakness in all 4 extremities. - Labs CBC & Chem 7: 11/20/24 12:31 11/20/24 12:31 Labs: Abnormal Lab Results - Last 24 Hours (Table) 11/19/24 11/19/24 11/20/24 Range/Units 16:31 20:51 07:12 POC Glucose (mg/dL) 229 H 204 H (70-110) mg/dL Hemoglobin A1c 7.2 H (<=6.0) % 11/20/24 Range/Units 11:33 POC Glucose (mg/dL) 188 H (70-110) mg/dL Hemoglobin A1c (<=6.0) % Assessment and Plan Plan: Acute hypoxemic respiratory failure, currently o off BiPAP on 3 L of oxygen by nasal cannula., chest x-ray showing increased diffuse interstitial densities bilaterally, consider congestive heart failure with pulmonary vascular congestion versus atypical pneumonias.Previous echocardiogram from December 2023 had shown a preserved LV function with an ejection fraction of 55 to 60%. There is mild pulmonary hypertension and moderate degree of mitral regurgitation. CAT scan of the chest done on 11/18/2024 showed small bilateral pleural effusion with adjacent atelectasis. No evidence of any tumor progression. olecranon bursitis, wound culture positive for methicillin-resistant Staphylococcus aureus. The patient remains on vancomycin Atrial fibrillation with controlled ventricular response. The patient remains on a combination of amiodarone and metoprolol Metastatic small cell lung cancer, receiving immunotherapy and most recent CAT scan of the brain and a CAT scan of the chest showed no evidence of any active d isease. Presented to [facility] on 04/22/22 with increased confusion and disorientation. CT brain without contrast noted 2 large hypodense lesions in bilateral parietal lobes measuring 4.9 x 3.2 cm on the left and 3.3 x 3.1 cm on the right. Initial CXR showed 2.6 cm mass in left mid lung field. He was started on IV dexamethasone. MRI brain on 04/23/22 noted a left 4.9 x 4.8 x 4 cm left cerberal hemisphere lesion and 4.1 x 4.1 cm right cerebral hemisphere lesion. A left cerebellum lesion measured 1.4 x 1.2 x 0.9 cm along with a potential left cerebellar peduncle lesion measuring 5 mm. 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 PET/CT on 05/24/22 reported posterior lateral SERAFIN lung lesion with SUV 4.79, superior left hilar lymphadenopathy with SUV 4.97, and punctate posterior right lung nodule with SUV 1.12. Uptake was also noted at the costovertebral junction and posterior chest, but unclear if this was malignant in nature. He had SRS at [facility] from 05/30/22-06/07/22 receiving 57 Gy in 8 fractions. Had significant improvement in his vision since SRS. He received 4 cycles of carboplatin and etoposide from 07/05/22-09/08/22. Staging CT scans on 09/19/2022 revealed no evidence of disease progression with partial response. Brain MRI July 2022 with no evidence of disease recurrence.Brain MRI on 07/06/2023 revealed no evidence of intracranial metastases. Repeat brain MRI on 08/28/2023 noted new anterior left temporal lobe lesion measuring 1.4 cm. He received 3 fractions of SRS with 27 Gordon from 09/04/2023 through 09/06/2023. Staging CT scans on 10/23/2023 revealed no evidence of metastatic disease. He was admitted to [facility] on 11/07/2023 with seizure and altered mental status was found to have new right temporal lobe lesion measuring 1.2 cm. Completed 3 fractions of SRS to the temporal lobe lesion in early December 2023. He restarted atezolizumab on 12/27/2023. Staging CT scans on 03/06/2024 and brain MRI on 03/18/2024 revealed no evidence of recurrent or metastatic disease. He was previously noted to have cysts of the liver with no lesions concerning for definitive metastatic disease.He did have hospitalizations in May and June 2024 where brain MRI on 05/17/2024 noted stable intracranial lesions that were treated. CT abdomen/pelvis on 06/13/2024 revealed no evidence of malignancy with stable hepatic cysts. CT chest performed on 08/05/2024 revealed no evidence of metastatic disease. He is s/p 25 cycles of maintenance tecentriq. CAT scan of the chest done on 11/18/2024 shows no evidence of any residual tumor or tumor progression. Hypertension. Severe hypokalemia, improved Elevated troponins, possibly secondary to supply/demand mismatch. Altered mental status, under investigation, brain CT did not show any acute intr acranial bleeding or mass effect. History of seizure disorder. History of polysubstance abuse. Plan: Titrate O2 to maintain saturation above 90%. We will titrate FiO2 further to maintain saturation above 90% Continue vancomycin CAT scan of the chest was noted and there is no evidence of any residual malignancy. Small bilateral pleural effusions were noted Continue bronchodilators Continue steroids and the patient is currently on a prednisone burst taper Management of atrial fibrillation the patient is currently on amiodarone 200 mg p.o., p.o. twice daily and metoprolol 100 mg p.o. daily. No anticoagulants Will continue to follow
[2024-11-20] MEDS: guaiFENesin 600 MG TABLET.ER PO SCH (19:54)
[2024-11-20 20:08] LABS: Glucose,Whole Blood 208 mg/dL (70-110)
--- NOTE | 2024-11-20 21:19 | PN ---
PROGRESS NOTE DATE OF SERVICE: 11/20/2024 CHIEF COMPLAINT: Mental status changes, delirium, and CA of the lung. HISTORY OF PRESENT ILLNESS: This gentleman seems to be doing a little bit better everyday. He seems to be a little bit more awake and alert, and he is eating and drinking. He is going to be moved to [facility] floor. PHYSICAL EXAMINATION: VITAL SIGNS: Blood pressure 141/105. CHEST: Clear on the left. CARDIAC: Normal. ABDOMEN: Soft, nontender. IMPRESSION: 1. Mental status changes. 2. Semicoma. 3. Metastatic cancer of the lung. 4. Hypokalemia. 5. Hypertension. 6. History of opioid addiction. PLAN: 1. Continue to progress activity. 2. Discharge planning. MMODL / IJN: [id number] /
[2024-11-21] MEDS: HALOPERIDOL LACTATE 5 MG/ML 1 ML VIAL IM STA (03:03)
[2024-11-21 04:42] LABS: Anisocytosis Slight; Basophils # (A) 0.1 k/uL (0-0.2); Basophils % (A) 1 %; Eosinophils # (A) 0.1 k/uL (0-0.7); Eosinophils % (A) 1 %; HCT 40.2 % (39.0-53.0); HGB 12.7 gm/dL (13.0-17.5); Hypochromasia Slight; Lymphocytes # (A) 1.3 k/uL (1.0-4.8); Lymphocytes % (A) 7 %; MCH 30.1 pg (25.0-35.0); MCHC 31.7 g/dL (31.0-37.0); MCV 94.9 fL (80.0-100.0); Mean Platelet Volume 9.7; Monocytes # (A) 1.2 k/uL (0-1.0); Monocytes % (A) 7 %; Neutrophils # (A) 15.2 k/uL (1.3-7.7); Neutrophils % (A) 84 %; Platelet Count 307 k/uL (150-450); RBC 4.23 m/uL (4.30-5.90); WBC 18.2 k/uL (3.8-10.6)
[2024-11-21 04:43] LABS: African American GFR (CKD) >90 (>60 ml/min/1.73 sqM); Anion Gap 5 mmol/L; Blood Urea Nitrogen 34 mg/dL (9-20); Calcium 9.1 mg/dL (8.4-10.2); Carbon Dioxide 23 mmol/L (22-30); Chloride 109 mmol/L (98-107); Glucose 73 mg/dL (74-99); Non-African American GFR(CKD) >90 (>60 ml/min/1.73 sqM); Sodium 137 mmol/L (137-145)
[2024-11-21 06:08] LABS: Glucose,Whole Blood 88 mg/dL (70-110)
[2024-11-21 12:07] LABS: Glucose,Whole Blood 97 mg/dL (70-110)
--- NOTE | 2024-11-21 14:13 | P.PN ---
Subjective Progress Note Date: 11/21/24 Principal diagnosis: Reason for follow-up is left elbow septic olecranon bursitis Patient is a 59-year-old male with a past medical history significant for hypertension seizure disorder atrial fibrillation he did have a metastatic lung cancer has been brought to the hospital for worsening swelling to the left elbow with a culture positive for MRSA concerning for septic olecranon bursitis. On today's evaluation that is 11/21/2024,the patient remains to be afebrile, patient is on 3 L nasal cannula supplemental oxygen and denies any shortness of breath no chest pain or cough.Patient denies having any nausea or vomiting, no abdominal pain and no diarrhea has been reported. Patient white count is 18.2 creatinine 0.64 Objective - Vital Signs Vital signs: Vital Signs Temp 98.1 F 11/21/24 11:35 Pulse 94 11/21/24 11:35 Resp 16 11/21/24 11:35 BP 136/83 11/21/24 11:35 Pulse Ox 99 11/21/24 11:35 FiO2 40 11/17/24 00:46 Intake & Output 11/20/24 11/21/24 11/21/24 18:59 06:59 18:59 Intake Total 1677 Output Total 650 1200 Balance 1027 -1200 Weight 71.5 kg Intake: Oral 1677 Output: Urine 650 1200 Other: Voiding Method External Catheter External Catheter Diaper Incontinent # Bowel Movements 1 1 - Exam GENERAL DESCRIPTION: Middle-age male lying in bed in no distress RESPIRATORY SYSTEM: Unlabored breathing , decreased breath sounds at bases HEART: S1 S2 regular rate and rhythm , ABDOMEN: Soft , no tenderness EXTREMITIES: Left elbow did have some swelling no drainage was noticed - Labs CBC & Chem 7: 11/21/24 03:09 11/21/24 03:04 Labs: Abnormal Lab Results - Last 24 Hours (Table) 11/20/24 11/20/24 11/20/24 Range/Units 12:31 12:31 16:34 WBC 18.2 H (3.8-10.6) k/uL RBC (4.30-5.90) m/uL Hgb (13.0-17.5) gm/dL MCHC 30.3 L (31.0-37.0) g/dL RDW 17.0 H (11.5-15.5) % Neutrophils # 16.6 H (1.3-7.7) k/uL Lymphocytes # 0.6 L (1.0-4.8) k/uL Monocytes # (0-1.0) k/uL Sodium 136 L (137-145) mmol/L Chloride 110 H (98-107) mmol/L Carbon Dioxide 17 L (22-30) mmol/L BUN 30 H (9-20) mg/dL Creatinine 0.63 L (0.66-1.25) mg/dL Glucose 257 H (74-99) mg/dL POC Glucose (mg/dL) 205 H (70-110) mg/dL Total Protein 5.2 L (6.3-8.2) g/dL Albumin 3.0 L (3.5-5.0) g/dL 11/20/24 11/21/24 11/21/24 Range/Units 20:07 03:04 03:09 WBC 18.2 H (3.8-10.6) k/uL RBC 4.23 L (4.30-5.90) m/uL Hgb 12.7 L (13.0-17.5) gm/dL MCHC (31.0-37.0) g/dL RDW 17.0 H (11.5-15.5) % Neutrophils # 15.2 H (1.3-7.7) k/uL Lymphocytes # (1.0-4.8) k/uL Monocytes # 1.2 H (0-1.0) k/uL Sodium (137-145) mmol/L Chloride 109 H (98-107) mmol/L Carbon Dioxide (22-30) mmol/L BUN 34 H (9-20) mg/dL Creatinine 0.64 L (0.66-1.25) mg/dL Glucose 73 L (74-99) mg/dL POC Glucose (mg/dL) 208 H (70-110) mg/dL Total Protein (6.3-8.2) g/dL Albumin (3.5-5.0) g/dL Assessment and Plan (1) Septic olecranon bursitis of left elbow Current Visit: Yes Status: Acute Code(s): M71.122 - OTHER INFECTIVE BURSITIS, LEFT ELBOW SNOMED Code(s): 6705314974173146 (2) Allergy to cephalosporin Current Visit: No Status: Acute Code(s): Z88.1 - ALLERGY STATUS TO OTHER ANTIBIOTIC AGENTS SNOMED Code(s): 976234312 (3) MRSA (methicillin resistant Staphylococcus aureus) infection Current Visit: Yes Status: Acute Code(s): A49.02 - METHICILLIN RESIS STAPH INFECTION, UNSP SITE SNOMED Code(s): 800571325 Plan: 1patient being admitted to the hospital for left elbow pain swelling redness he did have a wound with a culture positive for MRSA in the outpatient setting now with concern for left elbow septic olecranon bursitis. 2leukocytosis more likely steroid related will monitor closely 3--patient remains to be afebrile left elbow swelling has decreased no drainage, 4elevated white count, likely steroid related will monitor closely for now continue with vancomycin pharmacy to dose Dictation was produced using [employer] dictation software. please excuse any grammatical, word or spelling errors. Time with Patient: Less than 30
[2024-11-21 15:42] LABS: African American GFR (CKD) >90 (>60 ml/min/1.73 sqM); Anion Gap 5 mmol/L; Blood Urea Nitrogen 27 mg/dL (9-20); Calcium 8.2 mg/dL (8.4-10.2); Carbon Dioxide 25 mmol/L (22-30); Chloride 109 mmol/L (98-107); Glucose 132 mg/dL (74-99); Non-African American GFR(CKD) >90 (>60 ml/min/1.73 sqM); Potassium 3.8 mmol/L (3.5-5.1); Sodium 139 mmol/L (137-145)
[2024-11-21] MEDS: VANCOMYCIN TROUGH DUE 1 EACH MISC MISCELLANE ONE (15:47)
[2024-11-21 16:08] LABS: Glucose,Whole Blood 157 mg/dL (70-110)
--- NOTE | 2024-11-21 17:20 | P.PN ---
Subjective Progress Note Date: 11/21/24 Principal diagnosis: SCLC, AMS In f/u today pt is eating shakeel, he cont to have sitter in the room, he has moments of confusion and tries to get up, he can be combative at times. He reports some left shoulder and low back pain, no nausea, SOB. He was calm and clear when examined Objective - Vital Signs Vital signs: Vital Signs Temp 98.0 F 11/21/24 15:38 Pulse 110 H 11/21/24 15:38 Resp 16 11/21/24 15:38 BP 112/75 11/21/24 15:38 Pulse Ox 98 11/21/24 15:38 FiO2 40 11/17/24 00:46 Intake & Output 11/20/24 11/21/24 11/21/24 18:59 06:59 18:59 Intake Total 1677 720 Output Total 650 1200 500 Balance 1027 -1200 220 Weight 71.5 kg Intake: Oral 1677 720 Output: Urine 650 1200 500 Other: Voiding Method External Catheter External Catheter Diaper Incontinent # Bowel Movements 1 1 2 - Constitutional General appearance: Present: cooperative, no acute distress, thin - EENT ENT: Present: hearing grossly normal - Respiratory Details: resp unlabored - Peripheral edema leg Peripheral Edema: bilateral: None - Integumentary Integumentary Comment(s): left elbow swelling - Neurologic Neurologic: Present: focal deficits - Psychiatric Psychiatric Comment(s): Pt is alert, eating, speech is garbled at times, he does answer simple questions - Labs CBC & Chem 7: 11/21/24 03:09 11/21/24 15:11 Labs: Abnormal Lab Results - Last 24 Hours (Table) 11/20/24 11/21/24 11/21/24 Range/Units 20:07 03:04 03:09 WBC 18.2 H (3.8-10.6) k/uL RBC 4.23 L (4.30-5.90) m/uL Hgb 12.7 L (13.0-17.5) gm/dL RDW 17.0 H (11.5-15.5) % Neutrophils # 15.2 H (1.3-7.7) k/uL Monocytes # 1.2 H (0-1.0) k/uL Chloride 109 H (98-107) mmol/L BUN 34 H (9-20) mg/dL Creatinine 0.64 L (0.66-1.25) mg/dL Glucose 73 L (74-99) mg/dL POC Glucose (mg/dL) 208 H (70-110) mg/dL Calcium (8.4-10.2) mg/dL 11/21/24 11/21/24 Range/Units 15:11 16:07 WBC (3.8-10.6) k/uL RBC (4.30-5.90) m/uL Hgb (13.0-17.5) gm/dL RDW (11.5-15.5) % Neutrophils # (1.3-7.7) k/uL Monocytes # (0-1.0) k/uL Chloride 109 H (98-107) mmol/L BUN 27 H (9-20) mg/dL Creatinine 0.60 L (0.66-1.25) mg/dL Glucose 132 H (74-99) mg/dL POC Glucose (mg/dL) 157 H (70-110) mg/dL Calcium 8.2 L (8.4-10.2) mg/dL Assessment and Plan (1) Altered mental status Current Visit: Yes Status: Acute Priority: High Code(s): R41.82 - ALTERED MENTAL STATUS, UNSPECIFIED SNOMED Code(s): 382003002 (2) Small cell lung cancer Current Visit: Yes Status: Acute Priority: Medium Code(s): C34.90 - MALIGNANT NEOPLASM OF UNSP PART OF UNSP BRONCHUS OR LUNG SNOMED Code(s): 418060166 Plan: Altered mental status -Patient has had similar episodes in the past, usually associated with seizure activity or disease progression in the brain. CT of the head without contrast did not report any acute or new findings, no reports of seizure activity. -Pt currently being treated for infection, Infectious diseases following. -Pt mental status improved but, it is reported that he is being combative at times, forgetful, and his speech is less understandable today. MRI brain ordered Small cell lung cancer -Diagnosis and treatment as stated in consult -Patient has had disease recurrence, all within the brain. Treated with radiation -Patient has been on maintenance immunotherapy treatment for almost 2 years, no progression of disease/new disease -Hold treatment for now, until acute condition treated and resolved -CT chest with contrast done, no new disease, small lilly pl effusions -He will cont to have treatment f/u imaging as directed by Med Onc and Rad Onc
--- NOTE | 2024-11-21 17:34 | P.PN ---
Subjective Progress Note Date: 11/21/24 Patient is a 59-year-old male with past medical history significant for hypertension, atrial fibrillation, polysubstance abuse, seizure disorder, previous ventilator dependent respiratory failure, lung cancer with brain mets status post chemo and radiation. More recently, patient's been following at the wound care center for multiple wounds. He was noted to be confused. Left elbow was erythemic and warm thought to be olecranon bursitis. Wound culture of the left elbow positive for methicillin-resistant Staphylococcus aureus. Sent to the emergency department for IV antibiotics on 11/12/2024. He was admitted to the cardiac stepdown unit. Apparently, noted to have increased work of breathing, and placed on BiPAP. Pulmonary consult was placed. Patient currently being evaluated in room 350. Remains confused, lethargic and will not answer my questions. There is a bedside sitter. Brain CT done on admission did not show any acute intracranial bleeding or mass effect. Postsurgical changes in the right posterior parietal and posterior left parietal occipital lobes with craniotomy. Patient currently on BiPAP with settings 12/6 and FiO2 of 40%. Nonlabored breathing. Achieving adequate tidal volumes. Previous VBG showing a pH of 7.33, pCO2 of 47. Chest x-ray showing diffuse interstitial densities, consider CHF versus atypical pneumonias. Is afebrile. CBC: WBC count 9.6, hemoglobin 14.8, platelets 316. CMP: sodium 142, potassium 2.4, chloride 103, serum bicarb 22, BUN 59, creatinine 1.2, glucose 96. Urinalysis unremarkable for infection. LFTs not elevated. Troponin 0.06. Admission EKG: Atrial fibrillation with controlled ventricular response, rate 81 bpm, RBBB pattern. Current most recent vital signs: Temperature 97.9 F, heart rate 109 bpm, blood pressure 123/75 mmHg, nontachypneic, on the above-mentioned BiPAP settings, SpO2 99%. Progress note dated November 15, 2024. 59-year-old male who is seen today in room 350. He is in bed, on 5 L nasal cannula. The BiPAP device is set at 10/5 and 40%. He is not receiving any IV fluids. The patient has a history of hypertension, atrial fibrillation, polysubstance abuse, seizure disorder, previous ventilator dependent respiratory failure, lung cancer, with brain mets. The patient was transferred over to the hospital, because of an elbow infection, secondary to MRSA, to receive IV antibiotics in the form of vancomycin. Current laboratory data includes a white count 13, hemoglobin 12.2, hematocrit 38.8, and a platelet count of 290,000. Sodium 144, potassium 2.4, chlorides 113, CO2 23, BUN 31, and creatinine 0.61. Glucose is 115. Troponin was 0.036. N-terminal proBNP was 5560. Procalcitonin level was normal at 0.13. Blood cultures are currently negative. Chest x-ray shows significant opacification of the left lung. The right lung looks relatively normal save for possible infiltrate or atelectasis at the right lung base medially. Progress note dated November 16, 2024. 59-year-old male seen today in room 350. The patient is currently on 6 L of oxygen by nasal cannula. The patient is not receiving any fluids. He is receiving vancomycin for his MRSA infection. Clinically, he is a bit more awake and alert today than he was yesterday. Current laboratory data includes a white count 12.6, hemoglobin 13.5, hematocrit 41.6, and a platelet count of 297,000. Sodium 146, potassium 2.6, chlorides 111, CO2 25, anion gap 10, BUN 23, creatinine 0.58. Blood cultures are negative. Progress note dated November 17, 2024. 59-year-old male seen today in room 350. Currently, the patient is on nasal O2, at 5 L. He is getting saline at 5 cc an hour. According to the nurse, the patient has been having tachycardia, i.e. atrial fibrillation with RVR, and the primary service is being notified, so that may be cardiology can see the patient. Currently, white count 16.3, hemoglobin 14.1, hematocrit 44.1, platelet count 3 26,000. Sodium 147, potassium 2.8, chlorides 113, CO2 24, BUN 18, creatinine 0.6. Glucose is 204. Calcium 9.2. Procalcitonin level was normal at 0.13. Blood cultures are negative. Chest x-ray apparently shows improving aeration to the left lung. Patient is being seen for a follow-up. Comfortable on 40 of oxygen by nasal cannula. Quite weak and debilitated. No chest pain. No fever. No chills. Chest x-ray from 11/17/2024 showed improved aeration of the left lung. Denies having any chest pain. Limited cough. No significant sputum production. He r emains atrial fibrillation. He is on amiodarone 200 mg p.o. twice a day and metoprolol 100 mg p.o. daily for rate control. No anticoagulants. He remains on IV vancomycin regarding left olecranon bursitis. 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 The patient initially presented with altered mental status and a CAT scan of the head showed no evidence of any acute abnormalities. Patient is maintained on immunotherapy with Tecentriq for almost 2 years. No significant progression of disease based on the most recent CAT scan of the chest that was done August 2024. A follow-up CAT scan of the chest will be ordered.Labs from today shows a white cell count of 19.3, hemoglobin 13.1 and platelet count of 277. BUN is 23 with a creatinine of 0.6. Sodium is at 140, bicarb is at 24. On 11/19/2024, the patient is feeling better compared to yesterday. He feels less short of breath. He is currently on 3 Suboxone by nasal cannula with a pulse ox of 98 to 99%. The patient underwent a CAT scan of the chest with contrast on 11/18/2024. I reviewed the CAT scan images. There is a small left and minimal right-sided pleural effusion along with some adjacent atelectasis. There is also some scar in the left upper lobe reminiscent of a previous lung cancer. Otherwise, there is no active disease noted. The patient otherwise has no specific complaints. He is still on vancomycin regarding a left olecranon bursitis. He remains on DuoNeb updrafts. IV Solu-Medrol is to be discontinued today. No significant cough chest tightness or wheezing noted on today's examination. On 11/20/2024, the patient is clinically stable. Remains atrial fibrillation. Oxygenation is further improved and the patient is currently on 3 L of oxygen by nasal cannula and I suggested weaning the FiO2 further., Comfortable with no respiratory distress. The white cell count of 18.2, slightly improved compared to yesterday with a hemoglobin 15.7 and a platelet count of 289. Serum bicarb is at 17. Sodium with a catheter 0.6 and a sodium levels at 136. The patient remains on DuoNeb nebulized treatments [id number]. The patient remains on prednisone burst taper. Remains on vancomycin regarding left olecranon bursitis. In regards to his atrial fibrillation, he is on metoprolol 100 mg p.o. daily amiodarone 200 mg p.o. twice a day. No anticoagulants for now. Hi Leona show entirely on our 11/21/2024, the patient is being seen for a follow- up. Overnight, the patient was restless and confused and the patient was given a combination of Haldol and Ativan and furthermore, the patient was given Dilaudid this morning. He is a bit lethargic and sleepy at this point. The patient is resting comfortably in bed. He is currently on 4 L of oxygen by nasal cannula. Denies having any significant shortness of breath. Resting comfortably in bed. No focal neurological deficits. Blood work from today shows a white cell count of 18.2 and the patient has a hemoglobin of 12.7 and a platelet count of 307. Sodium is at 139, BUN 27 with a creatinine of 0.6. Remains on IV vancomycin. Rest of the medications are essentially unchanged. He is on a prednisone burst taper. He is also on a combination of metoprolol and amiodarone regarding atrial fibrillation. Objective - Vital Signs Vital signs: Vital Signs Temp 98.0 F 11/21/24 07:48 Pulse 98 11/21/24 09:52 Resp 18 11/21/24 09:52 BP 133/99 11/21/24 07:48 Pulse Ox 98 11/21/24 07:48 FiO2 40 11/17/24 00:46 Intake & Output 11/20/24 11/21/24 11/21/24 18:59 06:59 18:59 Intake Total 1677 Output Total 650 1200 Balance 1027 -1200 Weight 71.5 kg Intake: Oral 1677 Output: Urine 650 1200 Other: Voiding Method External Catheter External Catheter # Bowel Movements 1 1 - Exam No acute distress, somnolent/lethargic, currently on 3 L of oxygen by nasal cannula. Calm and comfortable. HEENT examination is grossly unremarkable. Mucous membranes are moist. No oral lesions. Neck supple. Full range of motion. No adenopathy thyromegaly or neck vein distention. Cardiovascular examination reveals an irregular rhythm and rate. S1-S2 normal. No S3 or S4. No discernible murmur noted. Heart sounds are distant. Lungs reveal tattered rhonchi. Diminished breath sounds on the left. No wheeze s or crackles. Abdomen soft bowel sounds are heard. No masses or tenderness. Extremities are intact. No cyanosis clubbing or edema. Skin reveals a left elbow with open superficial wound. Neurologic examination the patient awake alert and communicating. Profound weakness in all 4 extremities. - Labs CBC & Chem 7: 11/21/24 03:09 11/21/24 15:11 Labs: Abnormal Lab Results - Last 24 Hours (Table) 11/20/24 11/20/24 11/20/24 Range/Units 07:12 11:33 12:31 WBC 18.2 H (3.8-10.6) k/uL RBC (4.30-5.90) m/uL Hgb (13.0-17.5) gm/dL MCHC 30.3 L (31.0-37.0) g/dL RDW 17.0 H (11.5-15.5) % Neutrophils # 16.6 H (1.3-7.7) k/uL Lymphocytes # 0.6 L (1.0-4.8) k/uL Monocytes # (0-1.0) k/uL Sodium (137-145) mmol/L Chloride (98-107) mmol/L Carbon Dioxide (22-30) mmol/L BUN (9-20) mg/dL Creatinine (0.66-1.25) mg/dL Glucose (74-99) mg/dL POC Glucose (mg/dL) 188 H (70-110) mg/dL Hemoglobin A1c 7.2 H (<=6.0) % Total Protein (6.3-8.2) g/dL Albumin (3.5-5.0) g/dL 11/20/24 11/20/24 11/20/24 Range/Units 12:31 16:34 20:07 WBC (3.8-10.6) k/uL RBC (4.30-5.90) m/uL Hgb (13.0-17.5) gm/dL MCHC (31.0-37.0) g/dL RDW (11.5-15.5) % Neutrophils # (1.3-7.7) k/uL Lymphocytes # (1.0-4.8) k/uL Monocytes # (0-1.0) k/uL Sodium 136 L (137-145) mmol/L Chloride 110 H (98-107) mmol/L Carbon Dioxide 17 L (22-30) mmol/L BUN 30 H (9-20) mg/dL Creatinine 0.63 L (0.66-1.25) mg/dL Glucose 257 H (74-99) mg/dL POC Glucose (mg/dL) 205 H 208 H (70-110) mg/dL Hemoglobin A1c (<=6.0) % Total Protein 5.2 L (6.3-8.2) g/dL Albumin 3.0 L (3.5-5.0) g/dL 11/21/24 11/21/24 Range/Units 03:04 03:09 WBC 18.2 H (3.8-10.6) k/uL RBC 4.23 L (4.30-5.90) m/uL Hgb 12.7 L (13.0-17.5) gm/dL MCHC (31.0-37.0) g/dL RDW 17.0 H (11.5-15.5) % Neutrophils # 15.2 H (1.3-7.7) k/uL Lymphocytes # (1.0-4.8) k/uL Monocytes # 1.2 H (0-1.0) k/uL Sodium (137-145) mmol/L Chloride 109 H (98-107) mmol/L Carbon Dioxide (22-30) mmol/L BUN 34 H (9-20) mg/dL Creatinine 0.64 L (0.66-1.25) mg/dL Glucose 73 L (74-99) mg/dL POC Glucose (mg/dL) (70-110) mg/dL Hemoglobin A1c (<=6.0) % Total Protein (6.3-8.2) g/dL Albumin (3.5-5.0) g/dL Assessment and Plan Plan: Acute hypoxemic respiratory failure, currently o off BiPAP on 3 L of oxygen by nasal cannula., chest x-ray showing increased diffuse interstitial densities bilaterally, consider congestive heart failure with pulmonary vascular congestion versus atypical pneumonias.Previous echocardiogram from December 2023 [address] shown a preserved LV function with an ejection fraction of 55 to 60%. There is mild pulmonary hypertension and moderate degree of mitral regurgitation. CAT scan of the chest done on 11/18/2024 showed small bilateral pleural effusion with adjacent atelectasis. No evidence of any tumor progression. olecranon bursitis, wound culture positive for methicillin-resistant Staphylococcus aureus. The patient remains on vancomycin Atrial fibrillation with controlled ventricular response. The patient remains on a combination of amiodarone and metoprolol Metastatic small cell lung cancer, receiving immunotherapy and most recent CAT scan of the brain and a CAT scan of the chest showed no evidence of any active disease. Presented to [facility] on 04/22/22 with increased confusion and disorientation. CT brain without contrast noted 2 large hypodense lesions in bilateral parietal lobes measuring 4.9 x 3.2 cm on the left and 3.3 x 3.1 cm on the right. Initial CXR showed 2.6 cm mass in left mid lung field. He was started on IV dexamethasone. MRI brain on 04/23/22 noted a left 4.9 x 4.8 x 4 cm left cerberal hemisphere lesion and 4.1 x 4.1 cm right cerebral hemisphere lesion. A left cerebellum lesion measured 1.4 x 1.2 x 0.9 cm along with a potential left cerebellar peduncle lesion measuring 5 mm. Transferred to [facility] where he underwent bilateral parietal crainiotomy on 05/06/22, path + lung primary with mixed small cell and adenocarcinoma histology (TTF-1, synaptophysin, chromogranin positive; CK20 positive in small cell component). PET/CT on 05/24/22 reported posterior lateral SERAFIN lung lesion with SUV 4.79, superior left hilar lymphadenopathy with SUV 4.97, and punctate posterior right lung nodule with SUV 1.12. Uptake was also noted at the costovertebral junction and posterior chest, but unclear if this was malignant in nature. He had SRS at [facility] from 05/30/22-06/07/22 receiving 57 Gy in 8 fractions. Had significant improvement in his vision since SRS. He received 4 cycles of carboplatin and etoposide from 07/05/22-09/08/22. Staging CT scans on 09/19/2022 revealed no evidence of disease progression with partial response. Brain MRI July 2022 with no evidence of disease recurrence.Brain MRI on 07/06/2023 revealed no evidence of intracranial metastases. Repeat brain MRI on 08/28/2023 noted new anterior left temporal lobe lesion measuring 1.4 cm. He received 3 fractions of SRS with 27 Gordon from 09/04/2023 through 09/06/2023. Staging CT scans on 10/23/2023 revealed no evidence of metastatic disease. He was admitted to [facility] on 11/07/2023 with seizure and altered mental status was found to have new right temporal lobe lesion measuring 1.2 cm. Completed 3 fractions of SRS to the temporal lobe lesion in early December 2023. He restarted atezolizumab on 12/27/2023. Staging CT scans on 03/06/2024 and brain MRI on 03/18/2024 revealed no evidence of recurrent or metastatic disease. He was previously noted to have cysts of the liver with no lesions concerning for definitive metastatic disease.He did have hospitalizations in May and June 2024 where brain MRI on 05/17/2024 noted stable intracranial lesions that were treated. CT abdomen/pelvis on 06/13/2024 revealed no evidence of malignancy with stable hepatic cysts. CT chest performed on 08/05/2024 revealed no evidence of metastatic disease. He is s/p 25 cycles of maintenance tecentriq. CAT scan of the chest done on 11/18/2024 shows no evidence of any residual tumor or tumor progression. Delirium, treated with Haldol and the patient was also given Dilaudid this m orning. Slightly drowsy on today's evaluation. Hypertension. Severe hypokalemia, improved Elevated troponins, possibly secondary to supply/demand mismatch. Altered mental status, under investigation, brain CT did not show any acute intracranial bleeding or mass effect. History of seizure disorder. History of polysubstance abuse. Plan: Titrate O2 to maintain saturation above 90%. We will titrate FiO2 further to maintain saturation above 90%, currently on 3 days of oxygen by nasal cannula Continue vancomycin CAT scan of the chest was noted and there is no evidence of any residual malignancy. Small bilateral pleural effusions were noted Continue bronchodilators Continue steroids and the patient is currently on a prednisone burst taper Management of atrial fibrillation the patient is currently on amiodarone 200 mg p.o., p.o. twice daily and metoprolol 100 mg p.o. daily. No anticoagulants Oncology follow-up ID follow-up Monitor mental status Will continue to follow
--- NOTE | 2024-11-21 19:40 | PN ---
PROGRESS NOTE CHIEF COMPLAINT: Mental status changes and CA of the lung. HISTORY OF PRESENT ILLNESS: This gentleman is doing quite well and then last night apparently became extremely agitated, belligerent, and uncontrollable. Eventually, he was sedated. The etiology for this is not clear. Vital signs did not change. Laboratory studies seem to be unremarkable. REVIEW OF SYSTEMS: He is arousable and seems oriented. He might be a little less alert than yesterday, but he has received quite a bit of sedation during the night. PHYSICAL EXAMINATION: HEAD, EARS, EYES, NOSE, MOUTH AND THROAT: Unchanged. CHEST: Clear. CARDIAC: Normal. ABDOMEN: Flat and soft, nontender. EXTREMITIES: Are the same. IMPRESSION: 1. Agitation with delirium. 2. Metastatic carcinoma of the lung. 3. Electrolyte imbalance. PLAN: Repeat laboratory studies and chest x-ray. MMODL / IJN: [id number] /
[2024-11-21 19:41] LABS: Glucose,Whole Blood 121 mg/dL (70-110)
[2024-11-22 06:07] LABS: Glucose,Whole Blood 78 mg/dL (70-110)
[2024-11-22 07:22] LABS: Anisocytosis Slight; HGB 12.5 gm/dL (13.0-17.5); Hypochromasia Moderate; MCH 30.6 pg (25.0-35.0); MCV 95.9 fL (80.0-100.0); Mean Platelet Volume 8.5; Platelet Count 265 k/uL (150-450); RBC 4.06 m/uL (4.30-5.90); RDW 16.6 % (11.5-15.5); WBC 17.7 k/uL (3.8-10.6)
[2024-11-22 07:38] LABS: African American GFR (CKD) >90 (>60 ml/min/1.73 sqM); Anion Gap 3 mmol/L; Blood Urea Nitrogen 20 mg/dL (9-20); Calcium 8.3 mg/dL (8.4-10.2); Carbon Dioxide 30 mmol/L (22-30); Chloride 107 mmol/L (98-107); Glucose 64 mg/dL (74-99); Non-African American GFR(CKD) >90 (>60 ml/min/1.73 sqM); Potassium 3.3 mmol/L (3.5-5.1); Sodium 140 mmol/L (137-145)
[2024-11-22 11:39] LABS: Glucose,Whole Blood 110 mg/dL (70-110)
[2024-11-22] MEDS: POTASSIUM CHLORIDE ER 10 MEQ TAB.ER.PRT PO SCH (11:44)
--- NOTE | 2024-11-22 13:01 | P.PN ---
Subjective Progress Note Date: 11/22/24 Principal diagnosis: Reason for follow-up is left elbow septic olecranon bursitis Patient is a 59-year-old male with a past medical history significant for hypertension seizure disorder atrial fibrillation he did have a metastatic lung cancer has been brought to the hospital for worsening swelling to the left elbow with a culture positive for MRSA concerning for septic olecranon bursitis. On today's evaluation that is 11/22/2024, the patient continues to be afebrile, the patient is on 3 L, oxygen and breathing comfortably, the Pt lethargic unable provide any history no vomiting or diarrhea reported by the sitter at the bedside. Patient white count 17.7 slightly lower than yesterday creatinine 0.58 Objective - Vital Signs Vital signs: Vital Signs Temp 98.1 F 11/22/24 10:43 Pulse 104 H 11/22/24 12:13 Resp 18 11/22/24 10:43 BP 130/88 11/22/24 10:43 Pulse Ox 98 11/22/24 10:43 FiO2 40 11/17/24 00:46 Intake & Output 11/21/24 11/22/24 11/22/24 18:59 06:59 18:59 Intake Total 720 700 Output Total 500 2200 Balance 220 -2200 700 Weight 67.5 kg 67.5 kg Intake: Oral 720 700 Output: Urine 500 2200 Other: Voiding Method Diaper Diaper Incontinent Incontinent # Bowel Movements 2 3 - Exam GENERAL DESCRIPTION: Middle-age male lying in bed in no distress RESPIRATORY SYSTEM: Unlabored breathing , decreased breath sounds at bases HEART: S1 S2 regular rate and rhythm , ABDOMEN: Soft , no tenderness EXTREMITIES: Left elbow did have some swelling no drainage was noticed - Labs CBC & Chem 7: 11/22/24 05:13 11/22/24 05:13 Labs: Abnormal Lab Results - Last 24 Hours (Table) 11/21/24 11/21/24 11/21/24 Range/Units 15:11 16:07 19:40 WBC (3.8-10.6) k/uL RBC (4.30-5.90) m/uL Hgb (13.0-17.5) gm/dL RDW (11.5-15.5) % Potassium (3.5-5.1) mmol/L Chloride 109 H (98-107) mmol/L BUN 27 H (9-20) mg/dL Creatinine 0.60 L (0.66-1.25) mg/dL Glucose 132 H (74-99) mg/dL POC Glucose (mg/dL) 157 H 121 H (70-110) mg/dL Calcium 8.2 L (8.4-10.2) mg/dL 11/22/24 11/22/24 Range/Units 05:13 05:13 WBC 17.7 H (3.8-10.6) k/uL RBC 4.06 L (4.30-5.90) m/uL Hgb 12.5 L (13.0-17.5) gm/dL RDW 16.6 H (11.5-15.5) % Potassium 3.3 L (3.5-5.1) mmol/L Chloride (98-107) mmol/L BUN (9-20) mg/dL Creatinine 0.58 L (0.66-1.25) mg/dL Glucose 64 L (74-99) mg/dL POC Glucose (mg/dL) (70-110) mg/dL Calcium 8.3 L (8.4-10.2) mg/dL Assessment and Plan (1) Septic olecranon bursitis of left elbow Current Visit: Yes Status: Acute Code(s): M71.122 - OTHER INFECTIVE BURSITIS, LEFT ELBOW SNOMED Code(s): 4417328607850804 (2) Allergy to cephalosporin Current Visit: No Status: Acute Code(s): Z88.1 - ALLERGY STATUS TO OTHER ANTIBIOTIC AGENTS SNOMED Code(s): 435266687 (3) MRSA (methicillin resistant Staphylococcus aureus) infection Current Visit: Yes Status: Acute Code(s): A49.02 - METHICILLIN RESIS STAPH INFECTION, UNSP SITE SNOMED Code(s): 965042010 Plan: 1patient being admitted to the hospital for left elbow pain swelling redness he did have a wound with a culture positive for MRSA in the outpatient setting now with concern for left elbow septic olecranon bursitis. 2leukocytosis more likely steroid related will monitor closely 3--patient remains to be afebrile left elbow swelling has decreased no drainage, 4elevated white count, likely steroid related is currently trending down we will consider patient on vancomycin while inpatient transition to oral antibiotics on discharge Dictation was produced using [employer] dictation software. please excuse any grammatical, word or spelling errors. Time with Patient: Less than 30
--- NOTE | 2024-11-22 15:19 | P.PN ---
Subjective Progress Note Date: 11/22/24 Patient is a 59-year-old male with past medical history significant for hypertension, atrial fibrillation, polysubstance abuse, seizure disorder, previous ventilator dependent respiratory failure, lung cancer with brain mets status post chemo and radiation. More recently, patient's been following at the wound care center for multiple wounds. He was noted to be confused. Left elbow was erythemic and warm thought to be olecranon bursitis. Wound culture of the left elbow positive for methicillin-resistant Staphylococcus aureus. Sent to the emergency department for IV antibiotics on 11/12/2024. He was admitted to the cardiac stepdown unit. Apparently, noted to have increased work of breathing, and placed on BiPAP. Pulmonary consult was placed. Patient currently being evaluated in room 350. Remains confused, lethargic and will not answer my questions. There is a bedside sitter. Brain CT done on admission did not show any acute intracranial bleeding or mass effect. Postsurgical changes in the right posterior parietal and posterior left parietal occipital lobes with craniotomy. Patient currently on BiPAP with settings 12/6 and FiO2 of 40%. Nonlabored breathing. Achieving adequate tidal volumes. Previous VBG showing a pH of 7.33, pCO2 of 47. Chest x-ray showing diffuse interstitial densities, consider CHF versus atypical pneumonias. Is afebrile. CBC: WBC count 9.6, hemoglobin 14.8, platelets 316. CMP: sodium 142, potassium 2.4, chloride 103, serum bicarb 22, BUN 59, creatinine 1.2, glucose 96. Urinalysis unremarkable for infection. LFTs not elevated. Troponin 0.06. Admission EKG: Atrial fibrillation with controlled ventricular response, rate 81 bpm, RBBB pattern. Current most recent vital signs: Temperature 97.9 F, heart rate 109 bpm, blood pressure 123/75 mmHg, nontachypneic, on the above-mentioned BiPAP settings, SpO2 99%. Progress note dated November 15, 2024. 59-year-old male who is seen today in room 350. He is in bed, on 5 L nasal cannula. The BiPAP device is set at 10/5 and 40%. He is not receiving any IV fluids. The patient has a history of hypertension, atrial fibrillation, polysubstance abuse, seizure disorder, previous ventilator dependent respiratory failure, lung cancer, with brain mets. The patient was transferred over to the hospital, because of an elbow infection, secondary to MRSA, to receive IV antibiotics in the form of vancomycin. Current laboratory data includes a white count 13, hemoglobin 12.2, hematocrit 38.8, and a platelet count of 290,000. Sodium 144, potassium 2.4, chlorides 113, CO2 23, BUN 31, and creatinine 0.61. Glucose is 115. Troponin was 0.036. N-terminal proBNP was 5560. Procalcitonin level was normal at 0.13. Blood cultures are currently negative. Chest x-ray shows significant opacification of the left lung. The right lung looks relatively normal save for possible infiltrate or atelectasis at the right lung base medially. Progress note dated November 16, 2024. 59-year-old male seen today in room 350. The patient is currently on 6 L of oxygen by nasal cannula. The patient is not receiving any fluids. He is receiving vancomycin for his MRSA infection. Clinically, he is a bit more awake and alert today than he was yesterday. Current laboratory data includes a white count 12.6, hemoglobin 13.5, hematocrit 41.6, and a platelet count of 297,000. Sodium 146, potassium 2.6, chlorides 111, CO2 25, anion gap 10, BUN 23, creatinine 0.58. Blood cultures are negative. Progress note dated November 17, 2024. 59-year-old male seen today in room 350. Currently, the patient is on nasal O2, at 5 L. He is getting saline at 5 cc an hour. According to the nurse, the patient has been having tachycardia, i.e. atrial fibrillation with RVR, and the primary service is being notified, so that may be cardiology can see the patient. Currently, white count 16.3, hemoglobin 14.1, hematocrit 44.1, platelet count 3 26,000. Sodium 147, potassium 2.8, chlorides 113, CO2 24, BUN 18, creatinine 0.6. Glucose is 204. Calcium 9.2. Procalcitonin level was normal at 0.13. Blood cultures are negative. Chest x-ray apparently shows improving aeration to the left lung. Patient is being seen for a follow-up. Comfortable on 40 of oxygen by nasal cannula. Quite weak and debilitated. No chest pain. No fever. No chills. Chest x-ray from 11/17/2024 showed improved aeration of the left lung. Denies having any chest pain. Limited cough. No significant sputum production. He r emains atrial fibrillation. He is on amiodarone 200 mg p.o. twice a day and metoprolol 100 mg p.o. daily for rate control. No anticoagulants. He remains on IV vancomycin regarding left olecranon bursitis. 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 The patient initially presented with altered mental status and a CAT scan of the head showed no evidence of any acute abnormalities. Patient is maintained on immunotherapy with Tecentriq for almost 2 years. No significant progression of disease based on the most recent CAT scan of the chest that was done August 2024. A follow-up CAT scan of the chest will be ordered.Labs from today shows a white cell count of 19.3, hemoglobin 13.1 and platelet count of 277. BUN is 23 with a creatinine of 0.6. Sodium is at 140, bicarb is at 24. On 11/19/2024, the patient is feeling better compared to yesterday. He feels less short of breath. He is currently on 3 Suboxone by nasal cannula with a pulse ox of 98 to 99%. The patient underwent a CAT scan of the chest with contrast on 11/18/2024. I reviewed the CAT scan images. There is a small left and minimal right-sided pleural effusion along with some adjacent atelectasis. There is also some scar in the left upper lobe reminiscent of a previous lung cancer. Otherwise, there is no active disease noted. The patient otherwise has no specific complaints. He is still on vancomycin regarding a left olecranon bursitis. He remains on DuoNeb updrafts. IV Solu-Medrol is to be discontinued today. No significant cough chest tightness or wheezing noted on today's examination. On 11/20/2024, the patient is clinically stable. Remains atrial fibrillation. Oxygenation is further improved and the patient is currently on 3 L of oxygen by nasal cannula and I suggested weaning the FiO2 further., Comfortable with no respiratory distress. The white cell count of 18.2, slightly improved compared to yesterday with a hemoglobin 15.7 and a platelet count of 289. Serum bicarb is at 17. Sodium with a catheter 0.6 and a sodium levels at 136. The patient remains on DuoNeb nebulized treatments [id number]. The patient remains on prednisone burst taper. Remains on vancomycin regarding left olecranon bursitis. In regards to his atrial fibrillation, he is on metoprolol 100 mg p.o. daily amiodarone 200 mg p.o. twice a day. No anticoagulants for now. Hi Leona show entirely on our 11/21/2024, the patient is being seen for a follow- up. Overnight, the patient was restless and confused and the patient was given a combination of Haldol and Ativan and furthermore, the patient was given Dilaudid this morning. He is a bit lethargic and sleepy at this point. The patient is resting comfortably in bed. He is currently on 4 L of oxygen by nasal cannula. Denies having any significant shortness of breath. Resting comfortably in bed. No focal neurological deficits. Blood work from today shows a white cell count of 18.2 and the patient has a hemoglobin of 12.7 and a platelet count of 307. Sodium is at 139, BUN 27 with a creatinine of 0.6. Remains on IV vancomycin. Rest of the medications are essentially unchanged. He is on a prednisone burst taper. He is also on a combination of metoprolol and amiodarone regarding atrial fibrillation. 11/22/2024, no significant respiratory distress. However, the patient remains extremely fatigued, lethargic and weak. Working with physical therapy. He was able to sit up in a chair. The patient remains on oxygen 3 L with a pulse ox of 98%. No significant respiratory distress. White cell count is at 17 with a hemoglobin 12.5 and a platelet count of 265. BUN 20 with a creatinine of 0.5. Medications are essentially unchanged. Remains on IV vancomycin. Remains atrial fibrillation. Rate is controlled. Objective - Vital Signs Vital signs: Vital Signs Temp 98.1 F 11/22/24 10:43 Pulse 97 11/22/24 10:43 Resp 18 11/22/24 10:43 BP 130/88 11/22/24 10:43 Pulse Ox 98 11/22/24 10:43 FiO2 40 11/17/24 00:46 Intake & Output 11/21/24 11/22/24 11/22/24 18:59 06:59 18:59 Intake Total 720 700 Output Total 500 2200 Balance 220 -2200 700 Weight 67.5 kg 67.5 kg Intake: Oral 720 700 Output: Urine 500 2200 Other: Voiding Method Diaper Diaper Incontinent Incontinent # Bowel Movements 2 3 - Exam No acute distress, somnolent/lethargic, currently on 3 L of oxygen by nasal cannula. Calm and comfortable. HEENT examination is grossly unremarkable. Mucous membranes are moist. No oral lesions. Neck supple. Full range of motion. No adenopathy thyromegaly or neck vein distention. Cardiovascular examination reveals an irregular rhythm and rate. S1-S2 normal. No S3 or S4. No discernible murmur noted. Heart sounds are distant. Lungs reveal tattered rhonchi. Diminished breath sounds on the left. No wheezes or crackles. Abdomen soft bowel sounds are heard. No masses or tenderness. Extremities are intact. No cyanosis clubbing or edema. Skin reveals a left elbow with open superficial wound. Neurologic examination the patient awake alert and communicating. Profound weakness in all 4 extremities. - Labs CBC & Chem 7: 11/22/24 05:13 11/22/24 05:13 Labs: Abnormal Lab Results - Last 24 Hours (Table) 11/21/24 11/21/24 11/21/24 Range/Units 15:11 16:07 19:40 WBC (3.8-10.6) k/uL RBC (4.30-5.90) m/uL Hgb (13.0-17.5) gm/dL RDW (11.5-15.5) % Potassium (3.5-5.1) mmol/L Chloride 109 H (98-107) mmol/L BUN 27 H (9-20) mg/dL Creatinine 0.60 L (0.66-1.25) mg/dL Glucose 132 H (74-99) mg/dL POC Glucose (mg/dL) 157 H 121 H (70-110) mg/dL Calcium 8.2 L (8.4-10.2) mg/dL 11/22/24 11/22/24 Range/Units 05:13 05:13 WBC 17.7 H (3.8-10.6) k/uL RBC 4.06 L (4.30-5.90) m/uL Hgb 12.5 L (13.0-17.5) gm/dL RDW 16.6 H (11.5-15.5) % Potassium 3.3 L (3.5-5.1) mmol/L Chloride (98-107) mmol/L BUN (9-20) mg/dL Creatinine 0.58 L (0.66-1.25) mg/dL Glucose 64 L (74-99) mg/dL POC Glucose (mg/dL) (70-110) mg/dL Calcium 8.3 L (8.4-10.2) mg/dL Assessment and Plan Plan: Acute hypoxemic respiratory failure, currently o off BiPAP on 3 L of oxygen by nasal cannula., chest x-ray showing increased diffuse interstitial densities bilaterally, consider congestive heart failure with pulmonary vascular congestion versus atypical pneumonias.Previous echocardiogram from December 2023 had shown a preserved LV function with an ejection fraction of 55 to 60%. There is mild pulmonary hypertension and moderate degree of mitral regurgitation. CAT scan of the chest done on 11/18/2024 showed small bilateral pleural effusion with adjacent atelectasis. No evidence of any tumor progression. olecranon bursitis, wound culture positive for methicillin-resistant Staphylococcus aureus. The patient remains on vancomycin Atrial fibrillation with controlled ventricular response. The patient remains on a combination of amiodarone and metoprolol Metastatic small cell lung cancer, receiving immunotherapy and most recent CAT scan of the brain and a CAT scan of the chest showed no evidence of any active disease. Presented to [facility] on 04/22/22 with increased confusion and disorientation. CT brain without contrast noted 2 large hypodense lesions in bilateral parietal lobes measuring 4.9 x 3.2 cm on the left and 3.3 x 3.1 cm on the right. Initial CXR showed 2.6 cm mass in left mid lung field. He was started on IV dexamethasone. MRI brain on 04/23/22 noted a left 4.9 x 4.8 x 4 cm left cerberal hemisphere lesion and 4.1 x 4.1 cm right cerebral hemisphere lesion. A left cerebellum lesion measured 1.4 x 1.2 x 0.9 cm along with a potential left cerebellar peduncle lesion measuring 5 mm. Transferred to [facility] where he underwent bilateral parietal crainiotomy on 05/06/22, path + lung primary with mixed small cell and adenocarcinoma histology (TTF-1, synaptophysin, chromogranin positive; CK20 positive in small cell component). PET/CT on 05/24/22 reported posterior lateral SERAFIN lung lesion with SUV 4.79, superior left hilar lymphadenopathy with SUV 4.97, and punctate posterior right lung nodule with SUV 1.12. Uptake was also noted at the costovertebral junction and posterior chest, but unclear if this was malignant in nature. He had SRS at [facility] from 05/30/22-06/07/22 receiving 57 Gy in 8 fractions. Had significant improvement in his vision since SRS. He received 4 cycles of carboplatin and etoposide from 07/05/22-09/08/22. Staging CT scans on 09/19/2022 revealed no evidence of disease progression with partial response. Brain MRI July 2022 with no evidence of disease recurrence.Brain MRI on 07/06/2023 revealed no evidence of intracranial metastases. Repeat brain MRI on 08/28/2023 noted new anterior left temporal lobe lesion measuring 1.4 cm. He received 3 fractions of SRS with 27 Gordon from 09/04/2023 through 09/06/2023. Staging CT scans on 10/23/2023 revealed no evidence of metastatic disease. He was admitted to [facility] on 11/07/2023 with seizure and altered mental status was found to have new right temporal lobe lesion measuring 1.2 cm. Completed 3 fractions of SRS to the temporal lobe lesion in early December 2023. He restarted atezolizumab on 12/27/2023. Staging CT scans on 03/06/2024 and brain MRI on 03/18/2024 revealed no evidence of recurrent or metastatic disease. He was previously noted to have cysts of the liver with no lesions concerning for definitive metastatic disease.He did have hospitalizations in May and June 2024 where brain MRI on 05/17/2024 noted stable intracranial lesions that were treated. CT abdomen/pelvis on 06/13/2024 revealed no evidence of malignancy with stable hepatic cysts. CT chest performed on 08/05/2024 revealed no evidence of metastatic disease. He is s/p 25 cycles of maintenance tecentriq. CAT scan of the chest done on 11/18/2024 shows no evidence of any residual tumor or tumor progression. Delirium,, lethargic, weakness and episodes of confusion. The patient also demonstrate generalized weakness. Hypertension. Severe hypokalemia, improved Elevated troponins, possibly secondary to supply/demand mismatch. Altered mental status, under investigation, brain CT did not show any acute intracranial bleeding or mass effect. History of seizure disorder. History of polysubstance abuse. Plan: Monitor mental status Titrate O2 to maintain saturation above 90%. currently on 3 days of oxygen by nasal cannula Continue vancomycin CAT scan of the chest was noted and there is no evidence of any residual malignancy. Small bilateral pleural effusions were noted Continue bronchodilators Continue prednisone burst taper Management of atrial fibrillation the patient is currently on amiodarone 200 mg p.o., p.o. twice daily and metoprolol 100 mg p.o. daily. No anticoagulants Oncology follow-up ID follow-up Monitor mental status Will continue to follow Time with Patient: Greater than 30
--- NOTE | 2024-11-22 15:24 | P.PN ---
Subjective Progress Note Date: 11/22/24 Principal diagnosis: SCLC, AMS In f/u today pt is sitting up in bed, when asked how he was doing he said today is a bad day. He cont to have sitter for intermittent confusion. Objective - Vital Signs Vital signs: Vital Signs Temp 98.1 F 11/22/24 10:43 Pulse 97 11/22/24 13:38 Resp 18 11/22/24 13:38 BP 130/88 11/22/24 10:43 Pulse Ox 98 11/22/24 10:43 FiO2 40 11/17/24 00:46 Intake & Output 11/21/24 11/22/24 11/22/24 18:59 06:59 18:59 Intake Total 720 700 Output Total 500 2200 Balance 220 -2200 700 Weight 67.5 kg 67.5 kg Intake: Oral 720 700 Output: Urine 500 2200 Other: Voiding Method Diaper Diaper Diaper Incontinent Incontinent Incontinent # Bowel Movements 2 3 - Constitutional General appearance: Present: cooperative, no acute distress, thin - EENT ENT: Present: hearing grossly normal - Respiratory Respiratory: bilateral: diminished - Cardiovascular Rhythm: regular - Peripheral edema leg Peripheral Edema: bilateral: None - Neurologic Neurologic: Present: focal deficits - Psychiatric Psychiatric Comment(s): Alert, oriented x 2-3 - Labs CBC & Chem 7: 11/22/24 05:13 11/22/24 05:13 Labs: Abnormal Lab Results - Last 24 Hours (Table) 11/21/24 11/21/24 11/21/24 Range/Units 15:11 16:07 19:40 WBC (3.8-10.6) k/uL RBC (4.30-5.90) m/uL Hgb (13.0-17.5) gm/dL RDW (11.5-15.5) % Potassium (3.5-5.1) mmol/L Chloride 109 H (98-107) mmol/L BUN 27 H (9-20) mg/dL Creatinine 0.60 L (0.66-1.25) mg/dL Glucose 132 H (74-99) mg/dL POC Glucose (mg/dL) 157 H 121 H (70-110) mg/dL Calcium 8.2 L (8.4-10.2) mg/dL 11/22/24 11/22/24 Range/Units 05:13 05:13 WBC 17.7 H (3.8-10.6) k/uL RBC 4.06 L (4.30-5.90) m/uL Hgb 12.5 L (13.0-17.5) gm/dL RDW 16.6 H (11.5-15.5) % Potassium 3.3 L (3.5-5.1) mmol/L Chloride (98-107) mmol/L BUN (9-20) mg/dL Creatinine 0.58 L (0.66-1.25) mg/dL Glucose 64 L (74-99) mg/dL POC Glucose (mg/dL) (70-110) mg/dL Calcium 8.3 L (8.4-10.2) mg/dL Assessment and Plan (1) Altered mental status Current Visit: Yes Status: Acute Priority: High Code(s): R41.82 - ALTERED MENTAL STATUS, UNSPECIFIED SNOMED Code(s): 238508513 (2) Small cell lung cancer Current Visit: Yes Status: Acute Priority: Medium Code(s): C34.90 - MALIGNANT NEOPLASM OF UNSP PART OF UNSP BRONCHUS OR LUNG SNOMED Code(s): 450921587 Plan: Altered mental status -Patient has had similar episodes in the past, usually associated with seizure activity or disease progression in the brain. CT of the head without contrast did not report any acute or new findings, no reports of seizure activity. -Cont treatment for infection as prescribed by Infectious disease. -Pt mental status improved form admit, needing to have staff at bedside as he gets confused at times and is at risk for falling and hurting himself. Speech is understandable at times. MRI brain ordered, pending completion Small cell lung cancer -Diagnosis and treatment as stated in consult -Patient has had disease recurrence, all within the brain. Treated with radiation -Patient has been on maintenance immunotherapy treatment for almost 2 years, no progression of disease/new disease -Hold treatment for now, until acute condition treated and resolved -CT chest with contrast done, no new disease, small lilly pl effusions -He will cont to have treatment f/u imaging as directed by Med Onc and Rad Onc attests: I have seen and examined pt, performed H&P, developed impression and plan of care. Discussed with dictator. Agree with documentation, dictated as a scribe.
--- NOTE | 2024-11-22 15:38 | CDI ---
Documentation Clarification Form Date: 11/22/2024 02:53:18 PM From: Nakita Hollins RN, CCDS Phone: [phone] Admit Date: 11/12/2024 03:33:00 PM Patient Name: Royce Riddle Visit Number: [id number] Discharge Date: ATTENTION: The Clinical Documentation Specialists (CDI) and [facility] Coding Staff appreciate your assistance in clarifying documentation. Please respond to the clarification below the line at the bottom and electronically sign. The CDI & [facility] Coding staff will review the response and follow-up if needed. Please note: Queries are made part of the Legal Health Record. If you have any questions, please contact the author of this message via ITS. Doctor. Anais Sandoval The patient has troponin levels of 0.060 on admission and 0.036 11/14. Please clarify if there is an additional diagnosis and/or clinical significance related to this value. Patient history/risk factors: Small cell lung cancer, Elevated troponin Clinical indicators: 59-year-old male who presents with suspected left elbow septic olecranon bursitis. Metastatic lung cancer. Patient has increased work of breathing and was placed on BIPAP. CXR: Diffuse interstitial densities slightly worsened from prior. Correlate for sequela of CHF with pulmonary vascular congestion versus atypical pneumonias. Elevated troponins, possibly secondary to supply/demand mismatch. 11/12 VS / 76 22 97.6 91% RA, 97% 3/L NC 11/12 Potassium 1.8, 2.4 EKG: Atrial Fibrillation 81 BPM Treatment: Cordarone 200 MGPO BID , ASA PO Daily, Toprol Xl 100 MG PO Daily Is there an additional diagnosis and/or clinical significance related to the above lab result/information: [x ] Type 2 UT due to supply demand mismatch from acute hypoxemic respiratory failure [ ] Non-ischemic with acute myocardial injury [ ] Other, please specify [ ] Unable to determine Reference: [employer] Fourth [place] Definition of Myocardial Infarction Elevated Cardiac Troponin >99th percentile with Troponin rise and/or fall With Acute ischemia o Acute Myocardial Infarction ? Atherosclerosis thromosis ? Oxygen supply and demand imbalance Type II UT (Please indicate etiology) Without acute ischemia o Acute Myocardial Injury (Template Last Reviewed: April 2023) MTDD
[2024-11-22 16:33] LABS: Glucose,Whole Blood 320 mg/dL (70-110)
--- NOTE | 2024-11-22 20:01 | PN ---
PROGRESS NOTE DATE OF SERVICE: 11/22/2024 CHIEF COMPLAINT: Metastatic lung carcinoma. HISTORY OF PRESENT ILLNESS: This gentleman is a little bit more lethargic today. He is slightly arousable, but confused. Potassium is back down to 3.3. PHYSICAL EXAMINATION: VITAL SIGNS: Currently normal. He is chronically ill in appearance. CHEST: Demonstrates decreased breath sounds, particularly on the right. CARDIAC: Normal. ABDOMEN: Soft. EXTREMITIES: Reveal his skin lesions. IMPRESSION: 1. Metastatic carcinoma of the lung with brain metastases. 2. Mental status changes. 3. Hypokalemia. 4. Possible sepsis. PLAN: Increase oral potassium intake and continue to follow. MMODL / IJN: [id number] /
[2024-11-22 20:03] LABS: Glucose,Whole Blood 87 mg/dL (70-110)
[2024-11-23 06:14] LABS: Glucose,Whole Blood 101 mg/dL (70-110)
[2024-11-23 07:41] LABS: African American GFR (CKD) >90 (>60 ml/min/1.73 sqM); Anion Gap 3 mmol/L; Blood Urea Nitrogen 21 mg/dL (9-20); Calcium 8.4 mg/dL (8.4-10.2); Carbon Dioxide 31 mmol/L (22-30); Chloride 106 mmol/L (98-107); Glucose 87 mg/dL (74-99); Non-African American GFR(CKD) >90 (>60 ml/min/1.73 sqM); Potassium 3.7 mmol/L (3.5-5.1); Sodium 140 mmol/L (137-145)
[2024-11-23 11:33] LABS: Glucose,Whole Blood 200 mg/dL (70-110)
--- NOTE | 2024-11-23 13:59 | P.PN ---
Subjective Progress Note Date: 11/23/24 Patient is a 59-year-old male with past medical history significant for hypertension, atrial fibrillation, polysubstance abuse, seizure disorder, previous ventilator dependent respiratory failure, lung cancer with brain mets status post chemo and radiation. More recently, patient's been following at the wound care center for multiple wounds. He was noted to be confused. Left elbow was erythemic and warm thought to be olecranon bursitis. Wound culture of the left elbow positive for methicillin-resistant Staphylococcus aureus. Sent to the emergency department for IV antibiotics on 11/12/2024. He was admitted to the cardiac stepdown unit. Apparently, noted to have increased work of breathing, and placed on BiPAP. Pulmonary consult was placed. Patient currently being evaluated in room 350. Remains confused, lethargic and will not answer my questions. There is a bedside sitter. Brain CT done on admission did not show any acute intracranial bleeding or mass effect. Postsurgical changes in the right posterior parietal and posterior left parietal occipital lobes with craniotomy. Patient currently on BiPAP with settings 12/6 and FiO2 of 40%. Nonlabored breathing. Achieving adequate tidal volumes. Previous VBG showing a pH of 7.33, pCO2 of 47. Chest x-ray showing diffuse interstitial densities, consider CHF versus atypical pneumonias. Is afebrile. CBC: WBC count 9.6, hemoglobin 14.8, platelets 316. CMP: sodium 142, potassium 2.4, chloride 103, serum bicarb 22, BUN 59, creatinine 1.2, glucose 96. Urinalysis unremarkable for infection. LFTs not elevated. Troponin 0.06. Admission EKG: Atrial fibrillation with controlled ventricular response, rate 81 bpm, RBBB pattern. Current most recent vital signs: Temperature 97.9 F, heart rate 109 bpm, blood pressure 123/75 mmHg, nontachypneic, on the above-mentioned BiPAP settings, SpO2 99%. Progress note dated November 15, 2024. 59-year-old male who is seen today in room 350. He is in bed, on 5 L nasal cannula. The BiPAP device is set at 10/5 and 40%. He is not receiving any IV fluids. The patient has a history of hypertension, atrial fibrillation, polysubstance abuse, seizure disorder, previous ventilator dependent respiratory failure, lung cancer, with brain mets. The patient was transferred over to the hospital, because of an elbow infection, secondary to MRSA, to receive IV antibiotics in the form of vancomycin. Current laboratory data includes a white count 13, hemoglobin 12.2, hematocrit 38.8, and a platelet count of 290,000. Sodium 144, potassium 2.4, chlorides 113, CO2 23, BUN 31, and creatinine 0.61. Glucose is 115. Troponin was 0.036. N-terminal proBNP was 5560. Procalcitonin level was normal at 0.13. Blood cultures are currently negative. Chest x-ray shows significant opacification of the left lung. The right lung looks relatively normal save for possible infiltrate or atelectasis at the right lung base medially. Progress note dated November 16, 2024. 59-year-old male seen today in room 350. The patient is currently on 6 L of oxygen by nasal cannula. The patient is not receiving any fluids. He is receiving vancomycin for his MRSA infection. Clinically, he is a bit more awake and alert today than he was yesterday. Current laboratory data includes a white count 12.6, hemoglobin 13.5, hematocrit 41.6, and a platelet count of 297,000. Sodium 146, potassium 2.6, chlorides 111, CO2 25, anion gap 10, BUN 23, creatinine 0.58. Blood cultures are negative. Progress note dated November 17, 2024. 59-year-old male seen today in room 350. Currently, the patient is on nasal O2, at 5 L. He is getting saline at 5 cc an hour. According to the nurse, the patient has been having tachycardia, i.e. atrial fibrillation with RVR, and the primary service is being notified, so that may be cardiology can see the patient. Currently, white count 16.3, hemoglobin 14.1, hematocrit 44.1, platelet count 3 26,000. Sodium 147, potassium 2.8, chlorides 113, CO2 24, BUN 18, creatinine 0.6. Glucose is 204. Calcium 9.2. Procalcitonin level was normal at 0.13. Blood cultures are negative. Chest x-ray apparently shows improving aeration to the left lung. Patient is being seen for a follow-up. Comfortable on 40 of oxygen by nasal cannula. Quite weak and debilitated. No chest pain. No fever. No chills. Chest x-ray from 11/17/2024 showed improved aeration of the left lung. Denies having any chest pain. Limited cough. No significant sputum production. He r emains atrial fibrillation. He is on amiodarone 200 mg p.o. twice a day and metoprolol 100 mg p.o. daily for rate control. No anticoagulants. He remains on IV vancomycin regarding left olecranon bursitis. 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 The patient initially presented with altered mental status and a CAT scan of the head showed no evidence of any acute abnormalities. Patient is maintained on immunotherapy with Tecentriq for almost 2 years. No significant progression of disease based on the most recent CAT scan of the chest that was done August 2024. A follow-up CAT scan of the chest will be ordered.Labs from today shows a white cell count of 19.3, hemoglobin 13.1 and platelet count of 277. BUN is 23 with a creatinine of 0.6. Sodium is at 140, bicarb is at 24. On 11/19/2024, the patient is feeling better compared to yesterday. He feels less short of breath. He is currently on 3 Suboxone by nasal cannula with a pulse ox of 98 to 99%. The patient underwent a CAT scan of the chest with contrast on 11/18/2024. I reviewed the CAT scan images. There is a small left and minimal right-sided pleural effusion along with some adjacent atelectasis. There is also some scar in the left upper lobe reminiscent of a previous lung cancer. Otherwise, there is no active disease noted. The patient otherwise has no specific complaints. He is still on vancomycin regarding a left olecranon bursitis. He remains on DuoNeb updrafts. IV Solu-Medrol is to be discontinued today. No significant cough chest tightness or wheezing noted on today's examination. On 11/20/2024, the patient is clinically stable. Remains atrial fibrillation. Oxygenation is further improved and the patient is currently on 3 L of oxygen by nasal cannula and I suggested weaning the FiO2 further., Comfortable with no respiratory distress. The white cell count of 18.2, slightly improved compared to yesterday with a hemoglobin 15.7 and a platelet count of 289. Serum bicarb is at 17. Sodium with a catheter 0.6 and a sodium levels at 136. The patient remains on DuoNeb nebulized treatments [id number]. The patient remains on prednisone burst taper. Remains on vancomycin regarding left olecranon bursitis. In regards to his atrial fibrillation, he is on metoprolol 100 mg p.o. daily amiodarone 200 mg p.o. twice a day. No anticoagulants for now. Hi Leona show entirely on our 11/21/2024, the patient is being seen for a follow- up. Overnight, the patient was restless and confused and the patient was given a combination of Haldol and Ativan and furthermore, the patient was given Dilaudid this morning. He is a bit lethargic and sleepy at this point. The patient is resting comfortably in bed. He is currently on 4 L of oxygen by nasal cannula. Denies having any significant shortness of breath. Resting comfortably in bed. No focal neurological deficits. Blood work from today shows a white cell count of 18.2 and the patient has a hemoglobin of 12.7 and a platelet count of 307. Sodium is at 139, BUN 27 with a creatinine of 0.6. Remains on IV vancomycin. Rest of the medications are essentially unchanged. He is on a prednisone burst taper. He is also on a combination of metoprolol and amiodarone regarding atrial fibrillation. 11/22/2024, no significant respiratory distress. However, the patient remains extremely fatigued, lethargic and weak. Working with physical therapy. He was able to sit up in a chair. The patient remains on oxygen 3 L with a pulse ox of 98%. No significant respiratory distress. White cell count is at 17 with a hemoglobin 12.5 and a platelet count of 265. BUN 20 with a creatinine of 0.5. Medications are essentially unchanged. Remains on IV vancomycin. Remains atrial fibrillation. Rate is controlled. On 11/23/2024, the patient's remains confused, lethargic and weak. No significant respiratory distress. He has a sitter at the bedside and overnight the patient was given Haldol 1 mg, Ativan 2 mg and Dilaudid 1 mg. The patient will be sent for an MRI of the brain. In terms of his respiratory status, the patient is currently on 2 L of oxygen by nasal cannula with a pulse ox of 93%. Sodium is at 140, potassium 3.7, BUN 21 with a creatinine of 0.6 and a calcium level is at 8.4. Limited cough. No significant respiratory distress. Neurologic exam is nonfocal. Objective - Vital Signs Vital signs: Vital Signs Temp 98.3 F 11/23/24 08:00 Pulse 68 11/23/24 08:27 Resp 20 11/23/24 08:00 BP 155/97 11/23/24 08:00 Pulse Ox 96 11/23/24 08:13 FiO2 40 11/17/24 00:46 Intake & Output 11/22/24 11/23/24 11/23/24 18:59 06:59 18:59 Intake Total 700 358 Output Total 1350 1450 500 Balance -650 -1450 -142 Weight 67.5 kg 66.5 kg Intake: Oral 700 358 Output: Urine 1350 1450 500 Other: Voiding Method Diaper Diaper External Catheter Incontinent Incontinent # Bowel Movements 4 1 - Exam No acute distress, somnolent/lethargic, currently on 2 L of oxygen by nasal cannula. Calm and comfortable. HEENT examination is grossly unremarkable. Mucous membranes are moist. No oral lesions. Neck supple. Full range of motion. No adenopathy thyromegaly or neck vein distention. Cardiovascular examination reveals an irregular rhythm and rate. S1-S2 normal. No S3 or S4. No discernible murmur noted. Heart sounds are distant. Lungs reveal tattered rhonchi. Diminished breath sounds on the left. No wheezes or crackles. Abdomen soft bowel sounds are heard. No masses or tenderness. Extremities are intact. No cyanosis clubbing or edema. Skin reveals a left elbow with open superficial wound. Neurologic examination the patient awake alert and communicating. Profound wea kness in all 4 extremities. - Labs CBC & Chem 7: 11/22/24 05:13 11/23/24 06:37 Labs: Abnormal Lab Results - Last 24 Hours (Table) 11/22/24 11/23/24 Range/Units 16:32 06:37 Carbon Dioxide 31 H (22-30) mmol/L BUN 21 H (9-20) mg/dL Creatinine 0.62 L (0.66-1.25) mg/dL POC Glucose (mg/dL) 320 H (70-110) mg/dL Assessment and Plan Plan: Acute hypoxemic respiratory failure, currently off BiPAP and the patient is currently on 2 L of oxygen by nasal cannula., chest x-ray showing increased diffuse interstitial densities bilaterally, consider congestive heart failure with pulmonary vascular congestion versus atypical pneumonias.Previous echocardiogram from December 2023 had shown a preserved LV function with an ejection fraction of 55 to 60%. There is mild pulmonary hypertension and moderate degree of mitral regurgitation. CAT scan of the chest done on 11/18/2024 showed small bilateral pleural effusion with adjacent atelectasis. No evidence of any tumor progression. olecranon bursitis, wound culture positive for methicillin-resistant Staphylococcus aureus. The patient remains on vancomycin Atrial fibrillation with controlled ventricular response. The patient remains on a combination of amiodarone and metoprolol Metastatic small cell lung cancer, receiving immunotherapy and most recent CAT scan of the brain and a CAT scan of the chest showed no evidence of any active disease. Presented to [facility] on 04/22/22 with increased confusion and disorientation. CT brain without contrast noted 2 large hypodense lesions in bilateral parietal lobes measuring 4.9 x 3.2 cm on the left and 3.3 x 3.1 cm on the right. Initial CXR showed 2.6 cm mass in left mid lung field. He was started on IV dexamethasone. MRI brain on 04/23/22 noted a left 4.9 x 4.8 x 4 cm left cerberal hemisphere lesion and 4.1 x 4.1 cm right cerebral hemisphere lesion. A left cerebellum lesion measured 1.4 x 1.2 x 0.9 cm along with a potential left cerebellar peduncle lesion measuring 5 mm. Transferred to [facility] where he underwent bilateral parietal crainiotomy on 05/06/22, path + lung primary with mixed small cell and adenocarcinoma histology (TTF-1, synaptophysin, chromogranin positive; CK20 positive in small cell component). PET/CT on 05/24/22 reported posterior lateral SERAFIN lung lesion with SUV 4.79, superior left hilar lymphadenopathy with SUV 4.97, and punctate posterior right lung nodule with SUV 1.12. Uptake was also noted at the costovertebral junction and posterior chest, but unclear if this was malignant in nature. He had SRS at [facility] from 05/30/22-06/07/22 receiving 57 Gy in 8 fractions. Had significant improvement in his vision since SRS. He received 4 cycles of carboplatin and etoposide from 07/05/22-09/08/22. Staging CT scans on 09/19/2022 revealed no evidence of disease progression with partial response. Brain MRI July 2022 with no evidence of disease recurrence.Brain MRI on 07/06/2023 revealed no evid ence of intracranial metastases. Repeat brain MRI on 08/28/2023 noted new anterior left temporal lobe lesion measuring 1.4 cm. He received 3 fractions of SRS with 27 Gordon from 09/04/2023 through 09/06/2023. Staging CT scans on 10/23/2023 revealed no evidence of metastatic disease. He was admitted to [facility] on 11/07/2023 with seizure and altered mental status was found to have new right temporal lobe lesion measuring 1.2 cm. Completed 3 fractions of SRS to the temporal lobe lesion in early December 2023. He restarted atezolizumab on 12/27/2023. Staging CT scans on 03/06/2024 and brain MRI on 03/18/2024 revealed no evidence of recurrent or metastatic disease. He was previously noted to have c ysts of the liver with no lesions concerning for definitive metastatic disease.He did have hospitalizations in May and June 2024 where brain MRI on 05/17/2024 noted stable intracranial lesions that were treated. CT abdomen/pelvis on 06/13/2024 revealed no evidence of malignancy with stable he patic cysts. CT chest performed on 08/05/2024 revealed no evidence of metastatic disease. He is s/p 25 cycles of maintenance tecentriq. CAT scan of the chest done on 11/18/2024 shows no evidence of any residual tumor or tumor progression. Delirium,, lethargic, weakness and episodes of confusion. The patient also demonstrate generalized weakness.. Continues to have delirium, confusion and encephalopathy. Given Dilaudid, Haldol and Ativan overnight. Hypertension. Severe hypokalemia, improved Elevated troponins, possibly secondary to supply/demand mismatch. Altered mental status, under investigation, brain CT did not show any acute intracranial bleeding or mass effect. History of seizure disorder. History of polysubstance abuse. Plan: Monitor mental status MRI of the brain just to follow Titrate O2 to maintain saturation above 90%. currently on 2 L of oxygen by nasal cannula Continue vancomycin CAT scan of the chest was noted and there is no evidence of any residual malignancy. Small bilateral pleural effusions were noted Continue bronchodilators Continue prednisone burst taper Management of atrial fibrillation the patient is currently on amiodarone 200 mg p.o., p.o. twice daily and metoprolol 100 mg p.o. daily. No anticoagulants Oncology follow-up ID follow-up Monitor mental status Will continue to follow
--- NOTE | 2024-11-23 14:39 | P.PN ---
Subjective Progress Note Date: 11/23/24 Principal diagnosis: Reason for follow-up is left elbow septic olecranon bursitis Patient is a 59-year-old male with a past medical history significant for hypertension seizure disorder atrial fibrillation he did have a metastatic lung cancer has been brought to the hospital for worsening swelling to the left elbow with a culture positive for MRSA concerning for septic olecranon bursitis. On today's evaluation that is 11/23/2024, patient did not have any fever and is breathing comfortably on 2 L nasal cannula oxygen patient did receive Ativan for the MRI and is currently lethargic sleepy could not provide any history no vomiting or diarrhea has been reported. Patient did have a creatinine 0.62 last vancomycin trough was 18 blood culture has been negative Objective - Vital Signs Vital signs: Vital Signs Temp 98.3 F 11/23/24 08:00 Pulse 117 H 11/23/24 12:00 Resp 18 11/23/24 12:00 BP 160/100 11/23/24 12:00 Pulse Ox 93 L 11/23/24 12:00 FiO2 40 11/17/24 00:46 Intake & Output 11/22/24 11/23/24 11/23/24 18:59 06:59 18:59 Intake Total 700 358 Output Total 1350 1450 1400 Balance -650 1450 -1042 Weight 67.5 kg 66.5 kg Intake: Oral 700 358 Output: Urine 1350 1450 1400 Other: Voiding Method Diaper Diaper External Catheter Incontinent Incontinent # Bowel Movements 4 1 - Exam GENERAL DESCRIPTION: Middle-age male lying in bed in no distress RESPIRATORY SYSTEM: Unlabored breathing , decreased breath sounds at bases HEART: S1 S2 regular rate and rhythm , ABDOMEN: Soft , no tenderness EXTREMITIES: Left elbow did have some swelling no drainage was noticed - Labs CBC & Chem 7: 11/22/24 05:13 11/23/24 06:37 Labs: Abnormal Lab Results - Last 24 Hours (Table) 11/22/24 11/23/24 11/23/24 Range/Units 16:32 06:37 11:31 Carbon Dioxide 31 H (22-30) mmol/L BUN 21 H (9-20) mg/dL Creatinine 0.62 L (0.66-1.25) mg/dL POC Glucose (mg/dL) 320 H 200 H (70-110) mg/dL Assessment and Plan (1) Septic olecranon bursitis of left elbow Current Visit: Yes Status: Acute Code(s): M71.122 - OTHER INFECTIVE BURSITIS, LEFT ELBOW SNOMED Code(s): 8954353961644610 (2) Allergy to cephalosporin Current Visit: No Status: Acute Code(s): Z88.1 - ALLERGY STATUS TO OTHER ANTIBIOTIC AGENTS SNOMED Code(s): 547197776 (3) MRSA (methicillin resistant Staphylococcus aureus) infection Current Visit: Yes Status: Acute Code(s): A49.02 - METHICILLIN RESIS STAPH INFECTION, UNSP SITE SNOMED Code(s): 565780374 Plan: 1patient being admitted to the hospital for left elbow pain swelling redness he did have a wound with a culture positive for MRSA in the outpatient setting now with concern for left elbow septic olecranon bursitis. 2leukocytosis more likely steroid related will monitor closely 3--patient remains to be afebrile left elbow swelling has decreased no drainage, 4patient with a leukocytosis, likely steroid related and will monitor closely 5patient to continue vancomycin while watching his kidney function closely creatinine is currently stable Dictation was produced using [employer] software. please excuse any grammatical, word or spelling errors. Time with Patient: Less than 30
[2024-11-23 16:38] LABS: Glucose,Whole Blood 177 mg/dL (70-110)
[2024-11-23 20:01] LABS: Glucose,Whole Blood 180 mg/dL (70-110)
--- NOTE | 2024-11-23 21:25 | PN ---
PROGRESS NOTE DATE OF SERVICE: 11/23/2024 CHIEF COMPLAINT: Metastatic carcinoma of the lung. HISTORY OF PRESENT ILLNESS: This gentleman is about the same. He is still a little bit lethargic and confused when aroused. PHYSICAL EXAMINATION: CHEST: Demonstrates fairly good breath sounds on both sides and particularly on the left. CARDIAC: Normal. ABDOMEN: Flat and soft. IMPRESSION: 1. Metastatic carcinoma of the lung. 2. Chronic obstructive pulmonary disease. 3. Abscess and cellulitis of the left elbow. 4. Mental status changes. 5. Delirium. PLAN: Continue with supportive care. Apparently, an MRI of the brain has been ordered. The case may be getting to this situation where end of life considerations may have to take place. MMODL / IJN: [id number] /
[2024-11-24 06:18] LABS: Glucose,Whole Blood 110 mg/dL (70-110)
[2024-11-24 07:10] LABS: African American GFR (CKD) >90 (>60 ml/min/1.73 sqM); Anion Gap 6 mmol/L; Blood Urea Nitrogen 18 mg/dL (9-20); Calcium 8.5 mg/dL (8.4-10.2); Carbon Dioxide 29 mmol/L (22-30); Chloride 106 mmol/L (98-107); Glucose 94 mg/dL (74-99); Non-African American GFR(CKD) >90 (>60 ml/min/1.73 sqM); Sodium 141 mmol/L (137-145)
[2024-11-24 07:20] LABS: Potassium 3.5 mmol/L (3.5-5.1)
[2024-11-24 11:40] LABS: Glucose,Whole Blood 235 mg/dL (70-110)
--- NOTE | 2024-11-24 13:26 | P.PN ---
Subjective Progress Note Date: 11/24/24 Patient is a 59-year-old male with past medical history significant for hypertension, atrial fibrillation, polysubstance abuse, seizure disorder, previous ventilator dependent respiratory failure, lung cancer with brain mets status post chemo and radiation. More recently, patient's been following at the wound care center for multiple wounds. He was noted to be confused. Left elbow was erythemic and warm thought to be olecranon bursitis. Wound culture of the left elbow positive for methicillin-resistant Staphylococcus aureus. Sent to the emergency department for IV antibiotics on 11/12/2024. He was admitted to the cardiac stepdown unit. Apparently, noted to have increased work of breathing, and placed on BiPAP. Pulmonary consult was placed. Patient currently being evaluated in room 350. Remains confused, lethargic and will not answer my questions. There is a bedside sitter. Brain CT done on admission did not show any acute intracranial bleeding or mass effect. Postsurgical changes in the right posterior parietal and posterior left parietal occipital lobes with craniotomy. Patient currently on BiPAP with settings 12/6 and FiO2 of 40%. Nonlabored breathing. Achieving adequate tidal volumes. Previous VBG showing a pH of 7.33, pCO2 of 47. Chest x-ray showing diffuse interstitial densities, consider CHF versus atypical pneumonias. Is afebrile. CBC: WBC count 9.6, hemoglobin 14.8, platelets 316. CMP: sodium 142, potassium 2.4, chloride 103, serum bicarb 22, BUN 59, creatinine 1.2, glucose 96. Urinalysis unremarkable for infection. LFTs not elevated. Troponin 0.06. Admission EKG: Atrial fibrillation with controlled ventricular response, rate 81 bpm, RBBB pattern. Current most recent vital signs: Temperature 97.9 F, heart rate 109 bpm, blood pressure 123/75 mmHg, nontachypneic, on the above-mentioned BiPAP settings, SpO2 99%. Progress note dated November 15, 2024. 59-year-old male who is seen today in room 350. He is in bed, on 5 L nasal cannula. The BiPAP device is set at 10/5 and 40%. He is not receiving any IV fluids. The patient has a history of hypertension, atrial fibrillation, polysubstance abuse, seizure disorder, previous ventilator dependent respiratory failure, lung cancer, with brain mets. The patient was transferred over to the hospital, because of an elbow infection, secondary to MRSA, to receive IV antibiotics in the form of vancomycin. Current laboratory data includes a white count 13, hemoglobin 12.2, hematocrit 38.8, and a platelet count of 290,000. Sodium 144, potassium 2.4, chlorides 113, CO2 23, BUN 31, and creatinine 0.61. Glucose is 115. Troponin was 0.036. N-terminal proBNP was 5560. Procalcitonin level was normal at 0.13. Blood cultures are currently negative. Chest x-ray shows significant opacification of the left lung. The right lung looks relatively normal save for possible infiltrate or atelectasis at the right lung base medially. Progress note dated November 16, 2024. 59-year-old male seen today in room 350. The patient is currently on 6 L of oxygen by nasal cannula. The patient is not receiving any fluids. He is receiving vancomycin for his MRSA infection. Clinically, he is a bit more awake and alert today than he was yesterday. Current laboratory data includes a white count 12.6, hemoglobin 13.5, hematocrit 41.6, and a platelet count of 297,000. Sodium 146, potassium 2.6, chlorides 111, CO2 25, anion gap 10, BUN 23, creatinine 0.58. Blood cultures are negative. Progress note dated November 17, 2024. 59-year-old male seen today in room 350. Currently, the patient is on nasal O2, at 5 L. He is getting saline at 5 cc an hour. According to the nurse, the patient has been having tachycardia, i.e. atrial fibrillation with RVR, and the primary service is being notified, so that may be cardiology can see the patient. Currently, white count 16.3, hemoglobin 14.1, hematocrit 44.1, platelet count 3 26,000. Sodium 147, potassium 2.8, chlorides 113, CO2 24, BUN 18, creatinine 0.6. Glucose is 204. Calcium 9.2. Procalcitonin level was normal at 0.13. Blood cultures are negative. Chest x-ray apparently shows improving aeration to the left lung. Patient is being seen for a follow-up. Comfortable on 40 of oxygen by nasal cannula. Quite weak and debilitated. No chest pain. No fever. No chills. Chest x-ray from 11/17/2024 showed improved aeration of the left lung. Denies having any chest pain. Limited cough. No significant sputum production. He r emains atrial fibrillation. He is on amiodarone 200 mg p.o. twice a day and metoprolol 100 mg p.o. daily for rate control. No anticoagulants. He remains on IV vancomycin regarding left olecranon bursitis. On a separate note, the patient is known to have metastatic small cell lung cancer with [employer] involvement. The patient initially presented with altered mental status and a CAT scan of the head showed no evidence of any acute abnormalities. Patient is maintained on immunotherapy with Tecentriq for almost 2 years. No significant progression of disease based on the most recent CAT scan of the chest that was done August 2024. A follow-up CAT scan of the chest will be ordered.Labs from today shows a white cell count of 19.3, hemoglobin 13.1 and platelet count of 277. BUN is 23 with a creatinine of 0.6. Sodium is at 140, bicarb is at 24. On 11/19/2024, the patient is feeling better compared to yesterday. He feels less short of breath. He is currently on 3 Suboxone by nasal cannula with a pulse ox of 98 to 99%. The patient underwent a CAT scan of the chest with contrast on 11/18/2024. I reviewed the CAT scan images. There is a small left and minimal right-sided pleural effusion along with some adjacent atelectasis. There is also some scar in the left upper lobe reminiscent of a previous lung cancer. Otherwise, there is no active disease noted. The patient otherwise has no specific complaints. He is still on vancomycin regarding a left olecranon bursitis. He remains on DuoNeb updrafts. IV Solu-Medrol is to be discontinued today. No significant cough chest tightness or wheezing noted on today's examination. On 11/20/2024, the patient is clinically stable. Remains atrial fibrillation. Oxygenation is further improved and the patient is currently on 3 L of oxygen by nasal cannula and I suggested weaning the FiO2 further., Comfortable with no respiratory distress. The white cell count of 18.2, slightly improved compared to yesterday with a hemoglobin 15.7 and a platelet count of 289. Serum bicarb is at 17. Sodium with a catheter 0.6 and a sodium levels at 136. The patient remains on DuoNeb nebulized treatments [id number]. The patient remains on prednisone burst taper. Remains on vancomycin regarding left olecranon bursitis. In regards to his atrial fibrillation, he is on metoprolol 100 mg p.o. daily amiodarone 200 mg p.o. twice a day. No anticoagulants for now. Hi Leona show entirely on our 11/21/2024, the patient is being seen for a follow- up. Overnight, the patient was restless and confused and the patient was given a combination of Haldol and Ativan and furthermore, the patient was given Dilaudid this morning. He is a bit lethargic and sleepy at this point. The patient is resting comfortably in bed. He is currently on 4 L of oxygen by nasal cannula. Denies having any significant shortness of breath. Resting comfortably in bed. No focal neurological deficits. Blood work from today shows a white cell count of 18.2 and the patient has a hemoglobin of 12.7 and a platelet count of 307. Sodium is at 139, BUN 27 with a creatinine of 0.6. Remains on IV vancomycin. Rest of the medications are essentially unchanged. He is on a prednisone burst taper. He is also on a combination of metoprolol and amiodarone regarding atrial fibrillation. 11/22/2024, no significant respiratory distress. However, the patient remains extremely fatigued, lethargic and weak. Working with physical therapy. He was able to sit up in a chair. The patient remains on oxygen 3 L with a pulse ox of 98%. No significant respiratory distress. White cell count is at 17 with a hemoglobin 12.5 and a platelet count of 265. BUN 20 with a creatinine of 0.5. Medications are essentially unchanged. Remains on IV vancomycin. Remains atrial fibrillation. Rate is controlled. On 11/23/2024, the patient's remains confused, lethargic and weak. No significant respiratory distress. He has a sitter at the bedside and overnight the patient was given Haldol 1 mg, Ativan 2 mg and Dilaudid 1 mg. The patient will be sent for an MRI of the brain. In terms of his respiratory status, the patient is currently on 2 L of oxygen by nasal cannula with a pulse ox of 93%. Sodium is at 140, potassium 3.7, BUN 21 with a creatinine of 0.6 and a calcium level is at 8.4. Limited cough. No significant respiratory distress. Neurologic exam is nonfocal. 11/24/2024, the patient remains lethargic and weak. Received Ativan overnight a total of 2 mg. No significant agitation. Was able to have his breakfast this morning. No significant shortness of breath. Remains on 3 days of oxygen by nasal cannula. No chest pain. Remains on IV vancomycin for olecranon bursitis. ID is on the case. Remains in atrial fibrillation. Continues to complete his prednisone burst taper and the patient remains on DuoNeb updrafts. On today's evaluation, he is on 2 L of oxygen by nasal cannula. No reported aspiration. Objective - Vital Signs Vital signs: Vital Signs Temp 98.4 F 11/24/24 08:00 Pulse 105 H 11/24/24 08:00 Resp 18 11/24/24 08:00 BP 143/84 11/24/24 08:00 Pulse Ox 94 L 11/24/24 08:38 FiO2 40 11/17/24 00:46 Intake & Output 11/23/24 11/24/24 11/24/24 18:59 06:59 18:59 Intake Total 598 720 240 Output Total 1700 1350 750 Balance -1102 -630 -510 Weight 66 kg Intake: Oral 598 720 240 Output: Urine 1700 1350 750 Other: Voiding Method External Catheter External Catheter External Catheter # Bowel Movements 1 - Exam No acute distress, somnolent/lethargic, currently on 2 L of oxygen by nasal cannula. Calm and comfortable. HEENT examination is grossly unremarkable. Mucous membranes are moist. No oral lesions. Neck supple. Full range of motion. No adenopathy thyromegaly or neck vein distention. Cardiovascular examination reveals an irregular rhythm and rate. S1-S2 normal. No S3 or S4. No discernible murmur noted. Heart sounds are distant. Lungs reveal tattered rhonchi. Diminished breath sounds on the left. No wheezes or crackles. Abdomen soft bowel sounds are heard. No masses or tenderness. Extremities are intact. No cyanosis clubbing or edema. Skin reveals a left elbow with open superficial wound. Neurologic examination the patient awake alert and communicating. Profound weakness in all 4 extremities. - Labs CBC & Chem 7: 11/22/24 05:13 11/24/24 05:26 Labs: Abnormal Lab Results - Last 24 Hours (Table) 11/23/24 11/23/24 11/23/24 Range/Units 11:31 16:28 19:59 Creatinine (0.66-1.25) mg/dL POC Glucose (mg/dL) 200 H 177 H 180 H (70-110) mg/dL 11/24/24 Range/Units 05:26 Creatinine 0.64 L (0.66-1.25) mg/dL POC Glucose (mg/dL) (70-110) mg/dL Assessment and Plan Plan: Acute hypoxemic respiratory failure, currently off BiPAP and the patient is currently on 2 L of oxygen by nasal cannula., chest x-ray showing increased diffuse interstitial densities bilaterally, consider congestive heart failure with pulmonary vascular congestion versus atypical pneumonias.Previous echocardiogram from December 2023 had shown a preserved LV function with an ejection fraction of 55 to 60%. There is mild pulmonary hypertension and moderate degree of mitral regurgitation. CAT scan of the chest done on 11/18/2024 showed small bilateral pleural effusion with adjacent atelectasis. No evidence of any tumor progression. Overall respiratory status remains stable olecranon bursitis, wound culture positive for methicillin-resistant Staphylococcus aureus. The patient remains on vancomycin Atrial fibrillation with controlled ventricular response. The patient remains on a combination of amiodarone and metoprolol Metastatic small cell lung cancer, receiving immunotherapy and most recent CAT scan of the brain and a CAT scan of the chest showed no evidence of any active disease. Presented to [facility] on 04/22/22 with increased confusion and disorientation. CT brain without contrast noted 2 large hypodense lesions in bilateral parietal lobes measuring 4.9 x 3.2 cm on the left and 3.3 x 3.1 cm on the right. Initial CXR showed 2.6 cm mass in left mid lung field. He was started on IV dexamethasone. MRI brain on 04/23/22 noted a left 4.9 x 4.8 x 4 cm left cerberal hemisphere lesion and 4.1 x 4.1 cm right cerebral hemisphere lesion. A left cerebellum lesion measured 1.4 x 1.2 x 0.9 cm along with a potential left cerebellar peduncle lesion measuring 5 mm. Transferred to [facility] where he underwent bilateral parietal crainiotomy on 05/06/22, path + lung primary with mixed small cell and adenocarcinoma histology (TTF-1, synaptophysin, chromogranin positive; CK20 positive in small cell component). PET/CT on 05/24/22 reported posterior lateral SERAFIN lung lesion with SUV 4.79, superior left hilar lymphadenopathy with SUV 4.97, and punctate posterior right lung nodule with SUV 1.12. Uptake was also noted at the costovertebral junction and posterior chest, but unclear if this was malignant in nature. He had SRS at [facility] from 05/30/22-06/07/22 receiving 57 Gy in 8 fractions. Had significant improvement in his vision since SRS. He received 4 cycles of carboplatin and etoposide from 07/05/22-09/08/22. Staging CT scans on 09/19/2022 revealed no evidence of disease progression with partial response. Brain MRI July 2022 with no evidence of disease recurrence.Brain MRI on 07/06/2023 revealed no evidence of intracranial metastases. Repeat brain MRI on 08/28/2023 noted new anterior left temporal lobe lesion measuring 1.4 cm. He received 3 fractions of SRS with 27 Gordon from 09/04/2023 through 09/06/2023. Staging CT scans on 10/23/2023 revealed no evidence of metastatic disease. He was admitted to [facility] on 11/07/2023 with seizure and altered mental status was found to have new right temporal lobe lesion measuring 1.2 cm. Completed 3 fractions of SRS to the temporal lobe lesion in early December 2023. He restarted atezolizumab on 12/27/2023. Staging CT scans on 03/06/2024 and brain MRI on 03/18/2024 revealed no evidence of recurrent or metastatic disease. He was previously noted to have cysts of the liver with no lesions concerning for definitive metastatic disease.He did have hospitalizations in May and June 2024 where brain MRI on 05/17/2024 noted stable intracranial lesions that were treated. CT abdomen/pelvis on 06/13/2024 revealed no evidence of malignancy with stable hepatic cysts. CT chest performed on 08/05/2024 revealed no evidence of metastatic disease. He is s/p 25 cycles of maintenance tecentriq. CAT scan of the chest done on 11/18/2024 shows no evidence of any residual tumor or tumor progression. Delirium,, lethargic, weakness and episodes of confusion. The patient also demonstrate generalized weakness.. Continues to have delirium, confusion and encephalopathy. Given Ativan overnight Hypertension. Severe hypokalemia, improved Elevated troponins, possibly secondary to supply/demand mismatch. Altered mental status, under investigation, brain CT did not show any acute intracranial bleeding or mass effect. History of seizure disorder. History of polysubstance abuse. Plan: Monitor mental status, recommend minimizing the use of Ativan MRI of the brain was not possible because of his restlessness and ongoing delirium Titrate O2 to maintain saturation above 90%. currently on 2 L of oxygen by nasal cannula Continue vancomycin CAT scan of the chest was noted and there is no evidence of any residual malignancy. Small bilateral pleural effusions were noted Continue bronchodilators Continue prednisone burst taper Management of atrial fibrillation the patient is currently on amiodarone 200 mg p.o., p.o. twice daily and metoprolol 100 mg p.o. daily. No anticoagulants Oncology follow-up ID follow-up Monitor mental status Will continue to follow Time with Patient: Greater than 30
--- NOTE | 2024-11-24 14:43 | P.PN ---
Subjective Progress Note Date: 11/24/24 Principal diagnosis: Reason for follow-up is left elbow septic olecranon bursitis Patient is a 59-year-old male with a past medical history significant for hypertension seizure disorder atrial fibrillation he did have a metastatic lung cancer has been brought to the hospital for worsening swelling to the left elbow with a culture positive for MRSA concerning for septic olecranon bursitis. On today's evaluation that is 11/24/2024, Patient is afebrile patient is curr ently on 2 L nasal oxygen and complaining of shortness of breath, the patient denies any chest pain or any worsening cough, the patient denies any nausea vomiting did not have any abdominal pain and no diarrhea and denies any worsening pain to the left lumbar area. Patient did have a creatinine 0.64 no CBC was done today blood culture has been negative Objective - Vital Signs Vital signs: Vital Signs Temp 98.4 F 11/24/24 08:00 Pulse 109 H 11/24/24 11:39 Resp 18 11/24/24 11:39 BP 126/75 11/24/24 11:39 Pulse Ox 96 11/24/24 11:39 FiO2 40 11/17/24 00:46 Intake & Output 11/23/24 11/24/24 11/24/24 18:59 06:59 18:59 Intake Total 823 750 9925 Output Total 1700 1350 1150 Balance -1102 -630 -76 Weight 66 kg Intake: Oral 963 420 9321 Output: Urine 1700 1350 1150 Other: Voiding Method External Catheter External Catheter External Catheter # Bowel Movements 1 - Exam GENERAL DESCRIPTION: Middle-age male lying in bed in no distress RESPIRATORY SYSTEM: Unlabored breathing , decreased breath sounds at bases HEART: S1 S2 regular rate and rhythm , ABDOMEN: Soft , no tenderness EXTREMITIES: Left elbow did have some swelling no drainage was noticed - Labs CBC & Chem 7: 11/22/24 05:13 11/24/24 05:26 Labs: Abnormal Lab Results - Last 24 Hours (Table) 11/23/24 11/23/24 11/24/24 Range/Units 16:28 19:59 05:26 Creatinine 0.64 L (0.66-1.25) mg/dL POC Glucose (mg/dL) 177 H 180 H (70-110) mg/dL 02/23/25 Range/Units 11:39 Creatinine (0.66-1.25) mg/dL POC Glucose (mg/dL) 235 H (70-110) mg/dL Assessment and Plan (1) Septic olecranon bursitis of left elbow Current Visit: Yes Status: Acute Code(s): M71.122 - OTHER INFECTIVE BURSITIS, LEFT ELBOW SNOMED Code(s): 4762750009625709 (2) Allergy to cephalosporin Current Visit: No Status: Acute Code(s): Z88.1 - ALLERGY STATUS TO OTHER ANTIBIOTIC AGENTS SNOMED Code(s): 533828256 (3) MRSA (methicillin resistant Staphylococcus aureus) infection Current Visit: Yes Status: Acute Code(s): A49.02 - METHICILLIN RESIS STAPH INFECTION, UNSP SITE SNOMED Code(s): 881844716 Plan: 1patient being admitted to the hospital for left elbow pain swelling redness he did have a wound with a culture positive for MRSA in the outpatient setting now with concern for left elbow septic olecranon bursitis. 2leukocytosis more likely steroid related will monitor closely 3--patient remains to be afebrile left elbow swelling has decreased no drainage, 4patient with a leukocytosis, likely steroid related and will monitor closely, no CBC was done today 5patient currently being treated vancomycin while inpatient however no plan for IV antibiotic on discharge Dictation was produced using [employer] dictation software. please excuse any grammatical, word or spelling errors. Time with Patient: Less than 30
[2024-11-24 16:16] LABS: Glucose,Whole Blood 163 mg/dL (70-110)
[2024-11-24 16:16] LABS: Glucose,Whole Blood 475 mg/dL (70-110)
--- NOTE | 2024-11-24 19:35 | PN ---
PROGRESS NOTE DATE OF SERVICE: 11/24/2024 CHIEF COMPLAINT: Metastatic CA of the lung. HISTORY OF PRESENT ILLNESS: This gentleman is getting a little bit more lethargic each day. This probably represents progression of his tumor. REVIEW OF SYSTEMS: Not obtainable. PHYSICAL EXAMINATION: CHEST: Clear on the left. CARDIAC EXAM: Normal. ABDOMEN: Soft. EXTREMITIES: Same. IMPRESSION: 1. Metastatic carcinoma of the lung. 2. Progressive lethargy. 3. Hypokalemia. PLAN: No change in his current program. MRI was canceled because of his agitation and the unlikely benefit. MMODL / IJN: [id number] /
[2024-11-24 20:05] LABS: Glucose,Whole Blood 168 mg/dL (70-110)
[2024-11-25] MEDS: IPRATROPIUM-ALBUTEROL 3 ML NEB INHALATION PRN (02:38)
[2024-11-25 06:23] LABS: Glucose,Whole Blood 115 mg/dL (70-110)
[2024-11-25 06:45] LABS: African American GFR (CKD) >90 (>60 ml/min/1.73 sqM); Non-African American GFR(CKD) >90 (>60 ml/min/1.73 sqM)
[2024-11-25] MEDS ORDERED: VANCOMYCIN TROUGH DUE 1 EACH MISC MISCELLANE ONE (09:15)
[2024-11-25 11:22] LABS: Glucose,Whole Blood 207 mg/dL (70-110)
--- NOTE | 2024-11-25 14:25 | P.PN ---
Subjective Progress Note Date: 11/25/24 At today's visit mentation is improved, more alert, less lethargic. Reporting generalized pain Objective - Vital Signs Vital signs: Vital Signs Temp 98.0 F 11/25/24 08:21 Pulse 103 H 11/25/24 11:13 Resp 18 11/25/24 11:13 BP 131/89 11/25/24 11:13 Pulse Ox 95 11/25/24 11:13 FiO2 40 11/17/24 00:46 Intake & Output 11/24/24 11/25/24 11/25/24 18:59 06:59 18:59 Intake Total 1432 Output Total 1700 1350 Balance -268 -1350 Weight 65.5 kg Intake: Oral 1432 Output: Urine 1700 1350 Other: Voiding Method External Catheter External Catheter External Catheter # Bowel Movements 1 1 - Constitutional General appearance: Present: no acute distress - EENT Eyes: Present: EOMI ENT: Present: hearing grossly normal - Respiratory Details: breathing is even and unlabored - Cardiovascular Details: skin warm and dry - Integumentary Integumentary: Absent: cyanotic - Musculoskeletal Musculoskeletal: Present: generalized weakness - Labs CBC & Chem 7: 11/22/24 05:13 11/25/24 05:18 Labs: Abnormal Lab Results - Last 24 Hours (Table) 11/24/24 11/24/24 11/24/24 Range/Units 16:12 16:14 20:03 POC Glucose (mg/dL) 475 H 163 H 168 H (70-110) mg/dL 11/25/24 11/25/24 Range/Units 06:20 11:19 POC Glucose (mg/dL) 115 H 207 H (70-110) mg/dL Assessment and Plan (1) Altered mental status Current Visit: Yes Status: Acute Priority: High Code(s): R41.82 - ALTERED MENTAL STATUS, UNSPECIFIED SNOMED Code(s): 665101890 (2) Small cell lung cancer Current Visit: Yes Status: Acute Priority: Medium Code(s): C34.90 - MALIGNANT NEOPLASM OF UNSP PART OF UNSP BRONCHUS OR LUNG SNOMED Code(s): 576209190 Plan: Altered mental status -Patient has had similar episodes in the past, usually associated with seizure activity or disease progression in the brain. CT of the head without contrast did not report any acute or new findings, no reports of seizure activity. -Cont treatment for infection as prescribed by Infectious disease. -Pt mental status improved from admit, needing to have staff at bedside as he gets confused at times and is at risk for falling and hurting himself. -MRI brain ordered, however scan was discontinued. Pt mentation has improved since will reorder scan, if unable to tolerate will proceed with CT brain w/ contrast Small cell lung cancer -Diagnosis and treatment as stated in consult -Patient has had disease recurrence, all within the brain. Treated with radiation -Patient has been on maintenance immunotherapy treatment for almost 2 years, no progression of disease/new disease -Hold treatment for now, until acute condition treated and resolved -CT chest with contrast done, no new disease, small lilly pl effusions -He will cont to have treatment, f/u imaging as directed by Med Onc and Rad Onc attests: I have seen and examined pt, performed H&P, developed impression and plan of care. Discussed with dictator. Agree with documentation, dictated as a scribe.
--- NOTE | 2024-11-25 14:48 | P.PN ---
Subjective Progress Note Date: 11/25/24 Principal diagnosis: Reason for follow-up is left elbow septic olecranon bursitis Patient is a 59-year-old male with a past medical history significant for hypertension seizure disorder atrial fibrillation he did have a metastatic lung cancer has been brought to the hospital for worsening swelling to the left elbow with a culture positive for MRSA concerning for septic olecranon bursitis. On today's evaluation that is 11/25/2024, patient has been afebrile, patient is breathing comfortably and is currently on 4 L nasal oxygen the patient apparently was agitated earlier and has received some sedation is currently sleepy did not answer any question no vomiting diarrhea reported by the sitter at the bedside. The patient have a creatinine 0.71 no CBC was done today blood culture remains to be negative Objective - Vital Signs Vital signs: Vital Signs Temp 98.0 F 11/25/24 08:21 Pulse 103 H 11/25/24 11:13 Resp 18 11/25/24 11:13 BP 131/89 11/25/24 11:13 Pulse Ox 95 11/25/24 11:13 FiO2 40 11/17/24 00:46 Intake & Output 11/24/24 11/25/24 11/25/24 18:59 06:59 18:59 Intake Total 1432 Output Total 1700 1350 Balance -268 -1350 Weight 65.5 kg Intake: Oral 1432 Output: Urine 1700 1350 Other: Voiding Method External Catheter External Catheter External Catheter # Bowel Movements 1 1 - Exam GENERAL DESCRIPTION: Middle-age male lying in bed in no distress RESPIRATORY SYSTEM: Unlabored breathing , decreased breath sounds at bases HEART: S1 S2 regular rate and rhythm , ABDOMEN: Soft , no tenderness EXTREMITIES: Left elbow did have some swelling no drainage was noticed - Labs CBC & Chem 7: 11/22/24 05:13 11/25/24 05:18 Labs: Abnormal Lab Results - Last 24 Hours (Table) 11/24/24 11/24/24 11/24/24 Range/Units 16:12 16:14 20:03 POC Glucose (mg/dL) 475 H 163 H 168 H (70-110) mg/dL 11/25/24 11/25/24 Range/Units 06:20 11:19 POC Glucose (mg/dL) 115 H 207 H (70-110) mg/dL Assessment and Plan (1) Septic olecranon bursitis of left elbow Current Visit: Yes Status: Acute Code(s): M71.122 - OTHER INFECTIVE BURSITIS, LEFT ELBOW SNOMED Code(s): 2712948278401495 (2) Allergy to cephalosporin Current Visit: No Status: Acute Code(s): Z88.1 - ALLERGY STATUS TO OTHER ANTIBIOTIC AGENTS SNOMED Code(s): 564129385 (3) MRSA (methicillin resistant Staphylococcus aureus) infection Current Visit: Yes Status: Acute Code(s): A49.02 - METHICILLIN RESIS STAPH INFECTION, UNSP SITE SNOMED Code(s): 430255942 Plan: 1patient being admitted to the hospital for left elbow pain swelling redness he did have a wound with a culture positive for MRSA in the outpatient setting now with concern for left elbow septic olecranon bursitis. 2leukocytosis more likely steroid related will monitor closely 3--patient remains to be afebrile left elbow swelling has decreased no drainage, 4patient to continue vancomycin while inpatient and monitor his kidney function that his creatinine which is currently normal and Vanco trough closely Dictation was produced using [employer] dictation software. please excuse any grammatical, word or spelling errors. Time with Patient: Less than 30
[2024-11-25 16:24] LABS: Glucose,Whole Blood 282 mg/dL (70-110)
--- NOTE | 2024-11-25 17:27 | P.PN ---
Subjective Progress Note Date: 11/25/24 Principal diagnosis: Acute hypoxic respiratory failure secondary to congestive heart failure and possible atypical pneumonia On 11/20/2024, the patient is clinically stable. Remains atrial fibrillation. Oxygenation is further improved and the patient is currently on 3 L of oxygen by nasal cannula and I suggested weaning the FiO2 further., Comfortable with no respiratory distress. The white cell count of 18.2, slightly improved compared to yesterday with a hemoglobin 15.7 and a platelet count of 289. Serum bicarb is at 17. Sodium with a catheter 0.6 and a sodium levels at 136. The patient remains on DuoNeb nebulized treatments [id number]. The patient remains on prednisone burst taper. Remains on vancomycin regarding left olecranon bursitis. In regards to his atrial fibrillation, he is on metoprolol 100 mg p.o. daily amiodarone 200 mg p.o. twice a day. No anticoagulants for now. Hi Leona show entirely on our 11/21/2024, the patient is being seen for a follow- up. Overnight, the patient was restless and confused and the patient was given a combination of Haldol and Ativan and furthermore, the patient was given Dilaudid this morning. He is a bit lethargic and sleepy at this point. The patient is resting comfortably in bed. He is currently on 4 L of oxygen by nasal cannula. Denies having any significant shortness of breath. Resting comfortably in bed. No focal neurological deficits. Blood work from today shows a white cell count of 18.2 and the patient has a hemoglobin of 12.7 and a platelet count of 307. Sodium is at 139, BUN 27 with a creatinine of 0.6. Remains on IV vancomycin. Rest of the medications are essentially unchanged. He is on a prednisone burst taper. He is also on a combination of metoprolol and amiodarone regarding atrial fibrillation. 11/22/2024, no significant respiratory distress. However, the patient remains extremely fatigued, lethargic and weak. Working with physical therapy. He was able to sit up in a chair. The patient remains on oxygen 3 L with a pulse ox of 98%. No significant respiratory distress. White cell count is at 17 with a hemoglobin 12.5 and a platelet count of 265. BUN 20 with a creatinine of 0.5. Medications are essentially unchanged. Remains on IV vancomycin. Remains a trial fibrillation. Rate is controlled. On 11/23/2024, the patient's remains confused, lethargic and weak. No significant respiratory distress. He has a sitter at the bedside and overnight the patient was given Haldol 1 mg, Ativan 2 mg and Dilaudid 1 mg. The patient will be sent for an MRI of the brain. In terms of his respiratory status, the patient is currently on 2 L of oxygen by nasal cannula with a pulse ox of 93%. Sodium is at 140, potassium 3.7, BUN 21 with a creatinine of 0.6 and a calcium level is at 8.4. Limited cough. No significant respiratory distress. Neurologic exam is nonfocal. Patient was seen today on 11/25/2024, remains on the third floor, patient remains lethargic and weak, has been receiving Ativan and sedation intermittently, the patient himself is frail, confused, he is not a great historian, on 4 L nasal cannula O2 sat is 93 to 95%. Last CT of the chest was on 11/18/2024, showed small left and minimal right pleural effusion with compressive atelectasis, pulmonary lynch patient remains marginal at best. Patient is currently off BiPAP, on nasal cannula at 2 L, has not had a chest x-ray for a number of days, I would likely recommend a follow-up chest x-ray in the next 24 hours. Patient remains lethargic, weak, and he seems to be confused. Objective - Vital Signs Vital signs: Vital Signs Temp 98.0 F 11/25/24 08:21 Pulse 110 H 11/25/24 15:26 Resp 29 H 11/25/24 15:26 BP 131/98 11/25/24 15:26 Pulse Ox 93 L 11/25/24 15:26 FiO2 40 11/17/24 00:46 Intake & Output 11/24/24 11/25/24 11/25/24 18:59 06:59 18:59 Intake Total 1432 Output Total 1700 1350 Balance -268 -1350 Weight 65.5 kg Intake: Oral 1432 Output: Urine 1700 1350 Other: Voiding Method External Catheter External Catheter External Catheter # Bowel Movements 1 1 1 - Exam Physical exam revealed 59-year-old white male confused on 2 L nasal cannula, BiPAP is at bedside No acute distress, somnolent/lethargic, currently on 2 L of oxygen by nasal cannula. Calm and comfortable. HEENT examination is grossly unremarkable. Mucous membranes are moist. No oral lesions. Neck supple. Full range of motion. No adenopathy thyromegaly or neck vein distention. Cardiovascular examination reveals an irregular rhythm and rate. S1-S2 normal. No S3 or S4. No discernible murmur noted. Heart sounds are distant. Lungs revealed mostly rhonchi at the left base and crackles Abdomen soft bowel sounds are heard. No masses or tenderness. Extremities are intact. No cyanosis clubbing or edema. Skin reveals a left elbow with open superficial wound. Neurologic examination patient follows simple instructions, not a great historian. Seems to be a bit confused today. - Labs CBC & Chem 7: 11/22/24 05:13 11/25/24 05:18 Labs: Abnormal Lab Results - Last 24 Hours (Table) 11/24/24 11/25/24 11/25/24 Range/Units 20:03 06:20 11:19 POC Glucose (mg/dL) 168 H 115 H 207 H (70-110) mg/dL 11/25/24 Range/Units 16:22 POC Glucose (mg/dL) 282 H (70-110) mg/dL Assessment and Plan Assessment: Impression: Acute hypoxemic respiratory failure, multifactorial olecranon bursitis, wound culture positive for methicillin-resistant Staphylococcus aureus. The patient remains on vancomycin Atrial fibrillation with controlled ventricular response. The patient remains on a combination of amiodarone and metoprolol Metastatic small cell lung cancer, Delirium,, lethargic, weakness and episodes of confusion. The patient also demonstrate generalized weakness.. Continues to have delirium, confusion and encephalopathy. Given Ativan overnight Hypertension. Severe hypokalemia, improved Elevated troponins, possibly secondary to supply/demand mismatch. Altered mental status, under investigation, brain CT did not show any acute intracranial bleeding or mass effect. History of seizure disorder. Recommendation: Continue present supportive care measures continue antibiotics Reviewed the CT of the chest small left-sided pleural effusion noted Continue bronchodilators Continue prednisone burst and taper Continue metoprolol and amiodarone for his A-fib Continue to monitor mental status Prognosis remains guarded Patient is not ready for discharge planning Most likely patient will require placement. Repeat chest x-ray in a.m. Time with Patient: Less than 30
--- NOTE | 2024-11-25 19:29 | PN ---
PROGRESS NOTE DATE OF SERVICE: 11/25/2024 CHIEF COMPLAINT: Metastatic carcinoma of the lung. HISTORY OF PRESENT ILLNESS: This gentleman is not doing any better. He is still very lethargic. At this point, represents terminal phase of his neoplasm. PHYSICAL EXAMINATION: CHEST: Breath sounds are heard bilaterally. CARDIAC: Normal. ABDOMEN: Flat, soft. EXTREMITIES: Cool and cyanotic below the knees. He is barely arousable. IMPRESSION: 1. Metastatic carcinoma of the lung. 2. Lethargy and mental status deterioration. 3. Abscess of the left elbow. PLAN: Continue to monitor his condition. This is probably an appropriate time to start thinking about hospice. MMODL / IJN: [id number] /
[2024-11-25 20:18] LABS: Glucose,Whole Blood 172 mg/dL (70-110)
[2024-11-26 04:36] LABS: Glucose,Whole Blood 153 mg/dL (70-110)
[2024-11-26 04:50] LABS: ABG Base Excess 4.6 mmol/L; ABG HCO3 35 mmol/L (21-25); ABG Oxygen Saturation 81.9 % (94-97); ABG PH 7.21 (7.35-7.45); ABG TCO2 38 mmol/L (19-24); Allen Test Performed? Yes
[2024-11-26 04:58] LABS: ABG PCO2 88 mmHg (35-45)
[2024-11-26 04:59] LABS: ABG PO2 58 mmHg (83-108)
[2024-11-26 05:16] LABS: Glucose,Whole Blood 153 mg/dL (70-110)
--- NOTE | 2024-11-26 05:41 | XR ---
EXAM: XR Chest, 1 View CLINICAL HISTORY: ITS.REASON XR Reason: shortness of breath TECHNIQUE: Frontal view of the chest. COMPARISON: No relevant prior studies available. FINDINGS: Lungs: Patchy multifocal bilateral airspace disease. No consolidation. Pleural space: Small left-sided pleural effusion. No pneumothorax. Heart: Mild enlargement of the heart. Mediastinum: Unremarkable. Normal mediastinal contour. Bones/joints: Degenerative changes are seen within the spine and shoulders. No acute fracture. Vasculature: Calcifications overlie the aorta. IMPRESSION: 1. Small left-sided pleural effusion. 2. Multifocal pneumonia.
[2024-11-26 06:19] LABS: Anisocytosis Slight; Basophils % (A) 0 %; Eosinophils % (A) 0 %; HCT 43.3 % (39.0-53.0); Hypochromasia Marked; Lymphocytes # (A) 0.5 k/uL (1.0-4.8); Lymphocytes % (A) 3 %; MCH 29.8 pg (25.0-35.0); MCHC 29.9 g/dL (31.0-37.0); MCV 99.8 fL (80.0-100.0); Macrocytosis Slight; Mean Platelet Volume 8.8; Monocytes # (A) 0.6 k/uL (0-1.0); Monocytes % (A) 4 %; Neutrophils # (A) 14.5 k/uL (1.3-7.7); Neutrophils % (A) 91 %; Platelet Count 226 k/uL (150-450); RBC 4.34 m/uL (4.30-5.90); RDW 16.1 % (11.5-15.5); WBC 15.9 k/uL (3.8-10.6)
[2024-11-26 06:50] LABS: African American GFR (CKD) >90 (>60 ml/min/1.73 sqM); Anion Gap 7 mmol/L; Blood Urea Nitrogen 27 mg/dL (9-20); Calcium 9.1 mg/dL (8.4-10.2); Carbon Dioxide 33 mmol/L (22-30); Chloride 102 mmol/L (98-107); Glucose 139 mg/dL (74-99); Non-African American GFR(CKD) >90 (>60 ml/min/1.73 sqM); Sodium 142 mmol/L (137-145)
--- NOTE | 2024-11-26 06:50 | XR ---
EXAMINATION TYPE: XR chest 1V portable DATE OF EXAM: 11/26/2024 CLINICAL HISTORY: Difficulty breathing have to be intubated. TECHNIQUE: Single AP portable upright view of the chest is obtained. COMPARISON: Chest x-ray from earlier today FINDINGS: There is new orogastric tube projecting below diaphragm. There is new endotracheal tube te rminating at superior aortic knob level approximately 5 to 6 cm above the soumya. Persistent bilateral multifocal increased opacities and small bilateral pleural effusions. Cardiac si lhouette size is stable and upper limits of normal with atherosclerotic thoracic aorta. Osseous struc tures are intact. IMPRESSION: 1. New endotracheal and orogastric tubes are satisfactory in position. 2. Stable small bilateral pleural effusions and bilateral multifocal acute infiltrates and/or edema. [facility], , 11/26/2024 6:47 AM
[2024-11-26 06:57] LABS: Potassium 4.6 mmol/L (3.5-5.1)
--- NOTE | 2024-11-26 07:10 | P.PCN ---
Date of Procedure: 11/26/24 Preoperative Diagnosis: Acute hypoxemic respiratory failure requiring endotracheal intubation to mechanical ventilator Postoperative Diagnosis: Acute hypoxemic respiratory failure requiring endotracheal intubation to mechanical ventilator Procedure(s) Performed: Insertion of a right wrist radial arterial line Indications for Procedure: Hemodynamic monitoring and frequent lab draws Description of Procedure: Informed consent was obtained, and a procedural timeout was performed . The patient was placed in supine position. The right radial region was prepared in a sterile fashion, and a sterile drape was applied. The right radial artery was palpated, easily cannulated, and a guidewire was placed. A Cook catheter was inserted over the guidewire, and the guidewire was removed. There was good arterial blood flow, good arterial waveform, and no complications. The line was secured with using a 3-0 silk suture.
[2024-11-26 07:28] LABS: ABG Base Excess 3.9 mmol/L; ABG HCO3 31 mmol/L (21-25); ABG Oxygen Saturation 99.3 % (94-97); ABG PCO2 58 mmHg (35-45); ABG PH 7.34 (7.35-7.45); ABG PO2 185 mmHg (83-108); ABG TCO2 33 mmol/L (19-24)
[2024-11-26 07:30] LABS: Allen Test Performed? no
[2024-11-26] MEDS: PIPERACILLIN-TAZOBACTAM 3.375 GM in SODIUM CHLORIDE 0.9% 100 ML IVPB SCH (09:46)
[2024-11-26] MEDS: CHLORHEXIDINE GLUCONATE 15 ML CUP MUCOUS MEM SCH (09:47)
[2024-11-26] MEDS: CISATRACURIUM 2 MG/ML 5 ML VIAL IV ONE (09:52)
[2024-11-26] MEDS: METOPROLOL TARTRATE 50 MG TAB PO SCH (10:28)
--- NOTE | 2024-11-26 10:55 | XR ---
EXAMINATION TYPE: XR chest 1V confirm line plcmt DATE OF EXAM: 11/26/2024 10:34 AM COMPARISON: 11/26/2024 earlier in the day CLINICAL INDICATION: Male, 59 years old with history of Right Triple Lumen Central Line Placement, TECHNIQUE: XR chest 1V confirm line plcmt view(s) obtained. FINDINGS: The heart size is normal. The pulmonary vasculature is normal. Perihilar infiltrates are present. There may be some improvement from comparison. Endotracheal tube tip is 5.5 cm above the soumya. Nasogastric tube transverses the thorax. Right cent ral venous catheter tip is in the proximal right atrium. No pneumothorax is evident. IMPRESSION: 1. There may be mild improvement of perihilar infiltrates. 2. Placement of a right central venous catheter with the tip in the right atrium. [facility], , 11/26/2024 10:52 AM
[2024-11-26 10:57] LABS: Glucose,Whole Blood 111 mg/dL (70-110)
[2024-11-26] MEDS: IPRATROPIUM-ALBUTEROL 3 ML NEB INHALATION SCH (11:13)
[2024-11-26] MEDS: SODIUM CHLORIDE 0.9% 1,000 ML IV SCH (11:15)
[2024-11-26] MEDS ORDERED: RX INFO: IV CONTRAST WAS GIVEN 1 EACH MISC MISCELLANE PRN (11:33)
--- NOTE | 2024-11-26 13:16 | P.PN ---
Subjective Progress Note Date: 11/26/24 Pt seen in ICU at today's visit. He became agitated overnight, and after giving ativan, pt required bipap and eventually was intubated. Fever this morning of 101.4. Continues IV abx. Objective - Vital Signs Vital signs: Vital Signs Temp 101.4 F H 11/26/24 08:00 Pulse 113 H 11/26/24 11:13 Resp 28 H 11/26/24 11:00 BP 109/75 11/26/24 07:00 Pulse Ox 99 11/26/24 11:00 FiO2 50 11/26/24 11:18 Intake & Output 11/25/24 11/26/24 11/26/24 18:59 06:59 18:59 Intake Total 20 75 Output Total 700 565 Balance -680 -490 Weight 65.5 kg Intake: IV 20 75 0.9 75 Invasive Line 10 20 Output: Urine 700 565 Other: Voiding Method External Catheter Indwelling Catheter Indwelling Catheter # Bowel Movements 1 ABP, PAP, CO, CI - Last Documented Arterial Blood Pressure 90/58 - Constitutional General appearance: Present: no acute distress - Respiratory Details: ventilated breath sounds - Cardiovascular Details: tachycardic - Integumentary Integumentary: Absent: cyanotic, jaundiced - Neurologic Neurologic Comment(s): sedated - Labs CBC & Chem 7: 11/26/24 06:00 11/26/24 06:00 Labs: Abnormal Lab Results - Last 24 Hours (Table) 11/25/24 11/25/24 11/26/24 Range/Units 16:22 20:17 04:34 WBC (3.8-10.6) k/uL MCHC (31.0-37.0) g/dL RDW (11.5-15.5) % Neutrophils # (1.3-7.7) k/uL Lymphocytes # (1.0-4.8) k/uL ABG pH (7.35-7.45) ABG pCO2 (35-45) mmHg ABG pO2 (83-108) mmHg ABG HCO3 (21-25) mmol/L ABG Total CO2 (19-24) mmol/L ABG O2 Saturation (94-97) % Hemoglobin (13.0-17.5) gm/dL Carbon Dioxide (22-30) mmol/L BUN (9-20) mg/dL Glucose (74-99) mg/dL POC Glucose (mg/dL) 282 H 172 H 153 H (70-110) mg/dL Procalcitonin (0.02-0.50) ng/mL 11/26/24 11/26/24 11/26/24 Range/Units 04:42 05:16 06:00 WBC 15.9 H (3.8-10.6) k/uL MCHC 29.9 L (31.0-37.0) g/dL RDW 16.1 H (11.5-15.5) % Neutrophils # 14.5 H (1.3-7.7) k/uL Lymphocytes # 0.5 L (1.0-4.8) k/uL ABG pH 7.21 L (7.35-7.45) ABG pCO2 88 H* (35-45) mmHg ABG pO2 58 L* (83-108) mmHg ABG HCO3 35 H (21-25) mmol/L ABG Total CO2 38 H (19-24) mmol/L ABG O2 Saturation 81.9 L (94-97) % Hemoglobin 12.4 L (13.0-17.5) gm/dL Carbon Dioxide (22-30) mmol/L BUN (9-20) mg/dL Glucose (74-99) mg/dL POC Glucose (mg/dL) 153 H (70-110) mg/dL Procalcitonin (0.02-0.50) ng/mL 11/26/24 11/26/24 11/26/24 Range/Units 06:00 06:00 07:26 WBC (3.8-10.6) k/uL MCHC (31.0-37.0) g/dL RDW (11.5-15.5) % Neutrophils # (1.3-7.7) k/uL Lymphocytes # (1.0-4.8) k/uL ABG pH 7.34 L (7.35-7.45) ABG pCO2 58 H (35-45) mmHg ABG pO2 185 H (83-108) mmHg ABG HCO3 31 H (21-25) mmol/L ABG Total CO2 33 H (19-24) mmol/L ABG O2 Saturation 99.3 H (94-97) % Hemoglobin 11.2 L (13.0-17.5) gm/dL Carbon Dioxide 33 H (22-30) mmol/L BUN 27 H (9-20) mg/dL Glucose 139 H (74-99) mg/dL POC Glucose (mg/dL) (70-110) mg/dL Procalcitonin 0.93 H (0.02-0.50) ng/mL 11/26/24 Range/Units 10:55 WBC (3.8-10.6) k/uL MCHC (31.0-37.0) g/dL RDW (11.5-15.5) % Neutrophils # (1.3-7.7) k/uL Lymphocytes # (1.0-4.8) k/uL ABG pH (7.35-7.45) ABG pCO2 (35-45) mmHg ABG pO2 (83-108) mmHg ABG HCO3 (21-25) mmol/L ABG Total CO2 (19-24) mmol/L ABG O2 Saturation (94-97) % Hemoglobin (13.0-17.5) gm/dL Carbon Dioxide (22-30) mmol/L BUN (9-20) mg/dL Glucose (74-99) mg/dL POC Glucose (mg/dL) 111 H (70-110) mg/dL Procalcitonin (0.02-0.50) ng/mL Assessment and Plan (1) Altered mental status Current Visit: Yes Status: Acute Priority: High Code(s): R41.82 - ALTERED MENTAL STATUS, UNSPECIFIED SNOMED Code(s): 458545216 (2) Small cell lung cancer Current Visit: Yes Status: Acute Priority: Medium Code(s): C34.90 - MALIGNANT NEOPLASM OF UNSP PART OF UNSP BRONCHUS OR LUNG SNOMED Code(s): 754100627 Plan: Altered mental status -Patient has had similar episodes in the past, usually associated with seizure activity or disease progression in the brain. CT of the head without contrast did not report any acute or new findings, no reports of seizure activity. -Cont treatment for infection as prescribed by Infectious disease. -Pt mental status was slowly improving during admit. Overnight pt was having GABRIEL, and was placed on bipap and subsequently intubated -MRI brain ordered, however scan was discontinued after multiple attempts as pt was unable to tolerate exam. Will obtain CT brain w/ contrast Small cell lung cancer -Diagnosis and treatment as stated in consult -Patient has had disease recurrence, all within the brain. Treated with radiation -Patient has been on maintenance immunotherapy treatment for almost 2 years, no progression of disease/new disease -Hold treatment for now, until acute condition treated and resolved -CT chest with contrast done, no new disease, small lilly pl effusions Dr attests: I have seen and examined pt, performed H&P, developed impression and plan of care. Discussed with dictator. Agree with documentation, dictated as a scribe.
--- NOTE | 2024-11-26 13:50 | P.PN ---
Subjective Progress Note Date: 11/26/24 Principal diagnosis: Acute hypoxic respiratory failure secondary to congestive heart failure and possible atypical pneumonia On 11/20/2024, the patient is clinically stable. Remains atrial fibrillation. Oxygenation is further improved and the patient is currently on 3 L of oxygen by nasal cannula and I suggested weaning the FiO2 further., Comfortable with no respiratory distress. The white cell count of 18.2, slightly improved compared to yesterday with a hemoglobin 15.7 and a platelet count of 289. Serum bicarb is at 17. Sodium with a catheter 0.6 and a sodium levels at 136. The patient remains on DuoNeb nebulized treatments [id number]. The patient remains on prednisone burst taper. Remains on vancomycin regarding left olecranon bursitis. In regards to his atrial fibrillation, he is on metoprolol 100 mg p.o. daily amiodarone 200 mg p.o. twice a day. No anticoagulants for now. Hi Leona show entirely on our 11/21/2024, the patient is being seen for a follow- up. Overnight, the patient was restless and confused and the patient was given a combination of Haldol and Ativan and furthermore, the patient was given Dilaudid this morning. He is a bit lethargic and sleepy at this point. The patient is resting comfortably in bed. He is currently on 4 L of oxygen by nasal cannula. Denies having any significant shortness of breath. Resting comfortably in bed. No focal neurological deficits. Blood work from today shows a white cell count of 18.2 and the patient has a hemoglobin of 12.7 and a platelet count of 307. Sodium is at 139, BUN 27 with a creatinine of 0.6. Remains on IV vancomycin. Rest of the medications are essentially unchanged. He is on a prednisone burst taper. He is also on a combination of metoprolol and amiodarone regarding atrial fibrillation. 11/22/2024, no significant respiratory distress. However, the patient remains extremely fatigued, lethargic and weak. Working with physical therapy. He was able to sit up in a chair. The patient remains on oxygen 3 L with a pulse ox of 98%. No significant respiratory distress. White cell count is at 17 with a hemoglobin 12.5 and a platelet count of 265. BUN 20 with a creatinine of 0.5. Medications are essentially unchanged. Remains on IV vancomycin. Remains a trial fibrillation. Rate is controlled. On 11/23/2024, the patient's remains confused, lethargic and weak. No significant respiratory distress. He has a sitter at the bedside and overnight the patient was given Haldol 1 mg, Ativan 2 mg and Dilaudid 1 mg. The patient will be sent for an MRI of the brain. In terms of his respiratory status, the patient is currently on 2 L of oxygen by nasal cannula with a pulse ox of 93%. Sodium is at 140, potassium 3.7, BUN 21 with a creatinine of 0.6 and a calcium level is at 8.4. Limited cough. No significant respiratory distress. Neurologic exam is nonfocal. Patient was seen today on 11/25/2024, remains on the third floor, patient remains lethargic and weak, has been receiving Ativan and sedation intermittently, the patient himself is frail, confused, he is not a great historian, on 4 L nasal cannula O2 sat is 93 to 95%. Last CT of the chest was on 11/18/2024, showed small left and minimal right pleural effusion with compressive atelectasis, pulmonary lynch patient remains marginal at best. Patient is currently off BiPAP, on nasal cannula at 2 L, has not had a chest x-ray for a number of days, I would likely recommend a follow-up chest x-ray in the next 24 hours. Patient remains lethargic, weak, and he seems to be confused. Patient was seen today on 11/26/2024, early this morning, patient was extremely anxious agitated and he received Ativan for his extreme anxiety and agitation on the medical floor, patient pulmonary status became worse, he basically hyperventilated and became more hypercapnic. Initially placed on BiPAP but did not seem to do well, patient had to be intubated. And he was admitted to the ICU. ABG prior to intubation showed a pO2 of 58 pCO2 88 pH of 7.21, patient was quite obtunded and lethargic during the time of this ABG, and shortly after postintubation blood gas was done showing a pO2 of 185 pCO2 58 pH of 7.34. Hence I placed him on FiO2 of 40% tidal volume 450 rate of 20 and PEEP of 5. Patient is still receiving antibiotics in the form of Zosyn and vancomycin. Hemodynamics lynch, patient is not requiring any pressors. Chest x-ray this morning showed slight improvement in his perihilar infiltrates. CBC continues to show leukocytosis with WBC count of 15.9, hemoglobin of 13.0 hematocrit 43.3. Basic metabolic profile is unremarkable bicarb is a bit elevated at 33 renal profile is normal. After evaluating the patient, I went ahead and placed a right IJ triple-lumen catheter. As the patient had poor venous access. Objective - Vital Signs Vital signs: Vital Signs Temp 101.5 F H 11/26/24 12:00 Pulse 116 H 11/26/24 13:00 Resp 28 H 11/26/24 13:00 BP 109/75 11/26/24 07:00 Pulse Ox 98 11/26/24 13:00 FiO2 50 11/26/24 11:18 Intake & Output 11/25/24 11/26/24 11/26/24 18:59 06:59 18:59 Intake Total 20 291.539 Output Total 700 715 Balance -680 -423.461 Weight 65.5 kg Intake: IV 20 225 0.9 225 Invasive Line 10 20 Intake, IV Titration 16.539 Amount propofoL 1,000 mg In 16.539 Empty Bag 1 bag @ 15 MCG/ KG/MIN 5.895 mls/hr IV . [id number] [facility] Rx#:[id number] Tube Feeding 20 Other 30 Output: Urine 700 715 Other: Voiding Method External Catheter Indwelling Catheter Indwelling Catheter # Bowel Movements 1 ABP, PAP, CO, CI - Last Documented Arterial Blood Pressure 110/64 - Exam Physical exam revealed 59-year-old white male intubated, mechanically ventil ated. Head: Atraumatic, normocephalic HEENT endotracheal tube and orogastric tube are intact. Examination is grossly unremarkable. Mucous membranes are moist. No oral lesions. Neck supple. Full range of motion. No adenopathy thyromegaly or neck vein distention. Cardiovascular examination distant S1-S2, no S3 gallop, no murmur.. Lungs crackles and rhonchi noted bilaterally. Abdomen soft bowel sounds are heard. No masses or tenderness. Extremities superficial ulcerations, muscle wasting, good pulses bilaterally. Skin reveals a left elbow with open superficial wound. Neurologic could not fully assess patient is sedated and mechanically ventilated. Psychiatric: Could not assess - Labs CBC & Chem 7: 11/26/24 06:00 11/26/24 06:00 Labs: Abnormal Lab Results - Last 24 Hours (Table) 11/25/24 11/25/24 11/26/24 Range/Units 16:22 20:17 04:34 WBC (3.8-10.6) k/uL MCHC (31.0-37.0) g/dL RDW (11.5-15.5) % Neutrophils # (1.3-7.7) k/uL Lymphocytes # (1.0-4.8) k/uL ABG pH (7.35-7.45) ABG pCO2 (35-45) mmHg ABG pO2 (83-108) mmHg ABG HCO3 (21-25) mmol/L ABG Total CO2 (19-24) mmol/L ABG O2 Saturation (94-97) % Hemoglobin (13.0-17.5) gm/dL Carbon Dioxide (22-30) mmol/L BUN (9-20) mg/dL Glucose (74-99) mg/dL POC Glucose (mg/dL) 282 H 172 H 153 H (70-110) mg/dL Procalcitonin (0.02-0.50) ng/mL 11/26/24 11/26/24 11/26/24 Range/Units 04:42 05:16 06:00 WBC 15.9 H (3.8-10.6) k/uL MCHC 29.9 L (31.0-37.0) g/dL RDW 16.1 H (11.5-15.5) % Neutrophils # 14.5 H (1.3-7.7) k/uL Lymphocytes # 0.5 L (1.0-4.8) k/uL ABG pH 7.21 L (7.35-7.45) ABG pCO2 88 H* (35-45) mmHg ABG pO2 58 L* (83-108) mmHg ABG HCO3 35 H (21-25) mmol/L ABG Total CO2 38 H (19-24) mmol/L ABG O2 Saturation 81.9 L (94-97) % Hemoglobin 12.4 L (13.0-17.5) gm/dL Carbon Dioxide (22-30) mmol/L BUN (9-20) mg/dL Glucose (74-99) mg/dL POC Glucose (mg/dL) 153 H (70-110) mg/dL Procalcitonin (0.02-0.50) ng/mL 11/26/24 11/26/24 11/26/24 Range/Units 06:00 06:00 07:26 WBC (3.8-10.6) k/uL MCHC (31.0-37.0) g/dL RDW (11.5-15.5) % Neutrophils # (1.3-7.7) k/uL Lymphocytes # (1.0-4.8) k/uL ABG pH 7.34 L (7.35-7.45) ABG pCO2 58 H (35-45) mmHg ABG pO2 185 H (83-108) mmHg ABG HCO3 31 H (21-25) mmol/L ABG Total CO2 33 H (19-24) mmol/L ABG O2 Saturation 99.3 H (94-97) % Hemoglobin 11.2 L (13.0-17.5) gm/dL Carbon Dioxide 33 H (22-30) mmol/L BUN 27 H (9-20) mg/dL Glucose 139 H (74-99) mg/dL POC Glucose (mg/dL) (70-110) mg/dL Procalcitonin 0.93 H (0.02-0.50) ng/mL 11/26/24 Range/Units 10:55 WBC (3.8-10.6) k/uL MCHC (31.0-37.0) g/dL RDW (11.5-15.5) % Neutrophils # (1.3-7.7) k/uL Lymphocytes # (1.0-4.8) k/uL ABG pH (7.35-7.45) ABG pCO2 (35-45) mmHg ABG pO2 (83-108) mmHg ABG HCO3 (21-25) mmol/L ABG Total CO2 (19-24) mmol/L ABG O2 Saturation (94-97) % Hemoglobin (13.0-17.5) gm/dL Carbon Dioxide (22-30) mmol/L BUN (9-20) mg/dL Glucose (74-99) mg/dL POC Glucose (mg/dL) 111 H (70-110) mg/dL Procalcitonin (0.02-0.50) ng/mL Assessment and Plan Assessment: Impression: Acute on chronic hypoxic and hypercapnic respiratory failure, requiring intubation and mechanical ventilation shortly after he received Ativan for agitation on the medical floor. olecranon bursitis, wound culture positive for methicillin-resistant Staphylococcus aureus. The patient remains on vancomycin Atrial fibrillation with controlled ventricular response. The patient remains on a combination of amiodarone and metoprolol Metastatic small cell lung cancer, Chronic metabolic encephalopathy, multifactorial mostly with chronic hypercapnia Hypertension. Severe hypokalemia, improved Elevated troponins, possibly secondary to supply/demand mismatch. Altered mental status, most likely secondary to metabolic encephalopathy History of seizure disorder. Recommendation: Continue ventilatory support Nutritional support/enteral feeding GI and DVT prophylaxis Continue bronchodilators Continue antibiotics Continue bronchodilators Continue systemic steroids Continue metoprolol and amiodarone Continue to monitor mental status Prognosis is relatively poor, patient is critically ill No plans to wean or extubate today, patient was just intubated early this morning Chest x-ray was reviewed, labs were reviewed Critical care time is 34 minutes not including the time spent on procedures Time with Patient: Greater than 30
[2024-11-26] MEDS: VANCOMYCIN TROUGH DUE 1 EACH MISC MISCELLANE ONE (15:24)
--- NOTE | 2024-11-26 15:24 | P.PN ---
Subjective Progress Note Date: 11/26/24 Principal diagnosis: Reason for follow-up is left elbow septic olecranon bursitis Patient is a 59-year-old male with a past medical history significant for hypertension seizure disorder atrial fibrillation he did have a metastatic lung cancer has been brought to the hospital for worsening swelling to the left elbow with a culture positive for MRSA concerning for septic olecranon bursitis. On today's evaluation that is 11/26/2024, Patient did have worsening of his r espiratory status requiring intubation and transferred to the ICU patient did spike a fever of 101.5 F at noon he is hemodynamically stable not requiring any pressor support no diarrhea and the changes reported by the nursing staff. Patient did have a white count of 15.9 creatinine 0.80 chest x-ray, mild improvement of the perihilar infiltrate Objective - Vital Signs Vital signs: Vital Signs Temp 99.7 F H 11/26/24 13:00 Pulse 116 H 11/26/24 14:00 Resp 30 H 11/26/24 14:00 BP 109/75 11/26/24 07:00 Pulse Ox 99 11/26/24 14:00 FiO2 50 11/26/24 11:18 Intake & Output 11/25/24 11/26/24 11/26/24 18:59 06:59 18:59 Intake Total 20 376.539 Output Total 700 765 Balance -680 -388.461 Weight 65.5 kg Intake: IV 20 300 0.9 300 Invasive Line 10 20 Intake, IV Titration 16.539 Amount propofoL 1,000 mg In 16.539 Empty Bag 1 bag @ 15 MCG/ KG/MIN 5.895 mls/hr IV . [id number] [facility] Rx#:[id number] Tube Feeding 30 Other 30 Output: Urine 700 765 Other: Voiding Method External Catheter Indwelling Catheter Indwelling Catheter # Bowel Movements 1 ABP, PAP, CO, CI - Last Documented Arterial Blood Pressure 107/71 - Exam GENERAL DESCRIPTION: Middle-age male intubated on the vent RESPIRATORY SYSTEM: Unlabored breathing , decreased breath sounds at bases HEART: S1 S2 regular rate and rhythm , ABDOMEN: Soft , no tenderness EXTREMITIES: Left elbow some swelling no redness or drainage - Labs CBC & Chem 7: 11/26/24 06:00 11/26/24 06:00 Labs: Abnormal Lab Results - Last 24 Hours (Table) 11/25/24 11/25/24 11/26/24 Range/Units 16:22 20:17 04:34 WBC (3.8-10.6) k/uL MCHC (31.0-37.0) g/dL RDW (11.5-15.5) % Neutrophils # (1.3-7.7) k/uL Lymphocytes # (1.0-4.8) k/uL ABG pH (7.35-7.45) ABG pCO2 (35-45) mmHg ABG pO2 (83-108) mmHg ABG HCO3 (21-25) mmol/L ABG Total CO2 (19-24) mmol/L ABG O2 Saturation (94-97) % Hemoglobin (13.0-17.5) gm/dL Carbon Dioxide (22-30) mmol/L BUN (9-20) mg/dL Glucose (74-99) mg/dL POC Glucose (mg/dL) 282 H 172 H 153 H (70-110) mg/dL Procalcitonin (0.02-0.50) ng/mL 11/26/24 11/26/24 11/26/24 Range/Units 04:42 05:16 06:00 WBC 15.9 H (3.8-10.6) k/uL MCHC 29.9 L (31.0-37.0) g/dL RDW 16.1 H (11.5-15.5) % Neutrophils # 14.5 H (1.3-7.7) k/uL Lymphocytes # 0.5 L (1.0-4.8) k/uL ABG pH 7.21 L (7.35-7.45) ABG pCO2 88 H* (35-45) mmHg ABG pO2 58 L* (83-108) mmHg ABG HCO3 35 H (21-25) mmol/L ABG Total CO2 38 H (19-24) mmol/L ABG O2 Saturation 81.9 L (94-97) % Hemoglobin 12.4 L (13.0-17.5) gm/dL Carbon Dioxide (22-30) mmol/L BUN (9-20) mg/dL Glucose (74-99) mg/dL POC Glucose (mg/dL) 153 H (70-110) mg/dL Procalcitonin (0.02-0.50) ng/mL 11/26/24 11/26/24 11/26/24 Range/Units 06:00 06:00 07:26 WBC (3.8-10.6) k/uL MCHC (31.0-37.0) g/dL RDW (11.5-15.5) % Neutrophils # (1.3-7.7) k/uL Lymphocytes # (1.0-4.8) k/uL ABG pH 7.34 L (7.35-7.45) ABG pCO2 58 H (35-45) mmHg ABG pO2 185 H (83-108) mmHg ABG HCO3 31 H (21-25) mmol/L ABG Total CO2 33 H (19-24) mmol/L ABG O2 Saturation 99.3 H (94-97) % Hemoglobin 11.2 L (13.0-17.5) gm/dL Carbon Dioxide 33 H (22-30) mmol/L BUN 27 H (9-20) mg/dL Glucose 139 H (74-99) mg/dL POC Glucose (mg/dL) (70-110) mg/dL Procalcitonin 0.93 H (0.02-0.50) ng/mL 11/26/24 Range/Units 10:55 WBC (3.8-10.6) k/uL MCHC (31.0-37.0) g/dL RDW (11.5-15.5) % Neutrophils # (1.3-7.7) k/uL Lymphocytes # (1.0-4.8) k/uL ABG pH (7.35-7.45) ABG pCO2 (35-45) mmHg ABG pO2 (83-108) mmHg ABG HCO3 (21-25) mmol/L ABG Total CO2 (19-24) mmol/L ABG O2 Saturation (94-97) % Hemoglobin (13.0-17.5) gm/dL Carbon Dioxide (22-30) mmol/L BUN (9-20) mg/dL Glucose (74-99) mg/dL POC Glucose (mg/dL) 111 H (70-110) mg/dL Procalcitonin (0.02-0.50) ng/mL Assessment and Plan (1) Septic olecranon bursitis of left elbow Current Visit: Yes Status: Acute Code(s): M71.122 - OTHER INFECTIVE BURSITIS, LEFT ELBOW SNOMED Code(s): 0611330589554818 (2) Allergy to cephalosporin Current Visit: No Status: Acute Code(s): Z88.1 - ALLERGY STATUS TO OTHER ANTIBIOTIC AGENTS SNOMED Code(s): 555562805 (3) MRSA (methicillin resistant Staphylococcus aureus) infection Current Visit: Yes Status: Acute Code(s): A49.02 - METHICILLIN RESIS STAPH INFECTION, UNSP SITE SNOMED Code(s): 578425272 Plan: 1patient being admitted to the hospital for left elbow pain swelling redness he did have a wound with a culture positive for MRSA in the outpatient setting now with concern for left elbow septic olecranon bursitis for the patient received adequate IV vancomycin. 2patient did have worsening of his respiratory status requiring intubation and concern for possible pneumonia blood and sputum culture has been requested patient be started on Zosyn to continue while waiting for the culture to finalize, vancomycin discontinued Dictation was produced using [employer] dictation software. please excuse any grammatical, word or spelling errors. Time with Patient: Less than 30
[2024-11-26 17:04] LABS: Glucose,Whole Blood 161 mg/dL (70-110)
[2024-11-26 18:03] LABS: Glucose,Whole Blood 138 mg/dL (70-110)
--- NOTE | 2024-11-26 19:02 | OP ---
OPERATIVE REPORT DATE OF SERVICE : PROCEDURE PERFORMED: Placement of a right internal jugular triple-lumen catheter. PREOPERATIVE DIAGNOSES: Acute hypoxic and hypercapnic respiratory failure secondary to pneumonia. POSTOPERATIVE DIAGNOSES: Acute hypoxic and hypercapnic respiratory failure secondary to pneumonia. ANESTHESIA USED: 2 mL of 1% lidocaine. DESCRIPTION OF PROCEDURE: The patient was placed in a Trendelenburg position, the area of the right neck was prepared in a sterile fashion. Drapes were applied. The area behind the posterior belly of the sternocleidomastoid muscle was locally anesthetized, and the right internal jugular vein was easily cannulated using the posterior approach, then the wire was placed into the internal jugular vein, and the needle was withdrawn. The area around the guidewire was dilated, then a triple-lumen catheter was threaded over the guidewire and the guidewire was removed. Good blood flow noted in the 3 different ports of the triple-lumen catheter, line was secured using 3.0 silk sutures, chest x- ray postoperatively showed no complication and adequate placement of the triple-lumen central line. MMODL / IJN: [id number] /
[2024-11-26 20:53] LABS: Glucose,Whole Blood 130 mg/dL (70-110)
[2024-11-26] MEDS: POTASSIUM BICARBONATE/CIT AC 20 MEQ TABLET.EFF PO SCH (21:05)
[2024-11-27 05:02] LABS: Anisocytosis Slight; Basophils % (A) 0 %; Eosinophils # (A) 0.1 k/uL (0-0.7); Eosinophils % (A) 1 %; HCT 34.3 % (39.0-53.0); HGB 10.5 gm/dL (13.0-17.5); Hypochromasia Marked; Lymphocytes # (A) 0.6 k/uL (1.0-4.8); Lymphocytes % (A) 4 %; MCHC 30.8 g/dL (31.0-37.0); MCV 97.3 fL (80.0-100.0); Macrocytosis Slight; Mean Platelet Volume 8.7; Monocytes # (A) 0.5 k/uL (0-1.0); Monocytes % (A) 3 %; Neutrophils # (A) 15.5 k/uL (1.3-7.7); Neutrophils % (A) 92 %; Platelet Count 194 k/uL (150-450); RBC 3.52 m/uL (4.30-5.90); RDW 16.4 % (11.5-15.5); WBC 16.8 k/uL (3.8-10.6)
[2024-11-27 05:19] LABS: African American GFR (CKD) >90 (>60 ml/min/1.73 sqM); Anion Gap 1 mmol/L; Blood Urea Nitrogen 20 mg/dL (9-20); Calcium 8.4 mg/dL (8.4-10.2); Carbon Dioxide 31 mmol/L (22-30); Chloride 108 mmol/L (98-107); Glucose 129 mg/dL (74-99); Non-African American GFR(CKD) >90 (>60 ml/min/1.73 sqM); Potassium 3.3 mmol/L (3.5-5.1); Sodium 140 mmol/L (137-145)
[2024-11-27 05:23] LABS: Glucose,Whole Blood 138 mg/dL (70-110)
[2024-11-27] MEDS: NOREPINEPHRINE 4 MG in SODIUM CHLORIDE 0.9% 250 ML IV SCH (05:55)
[2024-11-27] MEDS: SODIUM CHLORIDE 0.9% 500 ML 500 ML IV ONE (05:56)
[2024-11-27 06:03] LABS: ABG Base Excess 4.8 mmol/L; ABG HCO3 29 mmol/L (21-25); ABG Oxygen Saturation 90.5 % (94-97); ABG PCO2 43 mmHg (35-45); ABG PH 7.44 (7.35-7.45); ABG TCO2 31 mmol/L (19-24)
[2024-11-27 06:05] LABS: ABG PO2 59 mmHg (83-108)
[2024-11-27 06:06] LABS: Allen Test Performed? No
--- NOTE | 2024-11-27 06:36 | CT ---
EXAMINATION TYPE: CT brain w con DATE OF EXAM: 11/27/2024 COMPARISON: CT brain 15 days earlier. MRI brain report June 11, 2024. CLINICAL INDICATION: Male, 59 years old with history of lung cancer, mets to brain, confusion; PHH, l davis cancer, mets to brain, ams TECHNIQUE: CT of the brain is performed with IV Contrast, patient injected with 100ml mL of Isovue 300. CT DLP: 1168.4 mGycm Automated exposure control for dose reduction was used. FINDINGS: There is no abnormal enhancing mass or midline shift identified. Persistent bilateral round low dense occipital lesions with rim calcification. Left sided lesion is larger measuring 3.3 x 2.4 cm axial i mage 35. Surrounding hypodensity on the left is redemonstrated, nonspecific finding. No significant a djacent ventricular effacement to suggest vasogenic edema however. The ventricles and sulci are withi n normal limits in size. Bilateral scleral calcifications are seen the visualized sinuses are clear. Posterior Craniotomy changes are redemonstrated. Partial visualization of endotracheal and orogastric tubes. IMPRESSION: No definitive enhancing masses to suggest active metastatic disease. Suspect treated lesi ons in the bilateral occipital region. [facility], , 11/27/2024 6:33 AM
--- NOTE | 2024-11-27 06:56 | XR ---
EXAMINATION TYPE: XR chest 1V portable DATE OF EXAM: 11/27/2024 5:34 AM COMPARISON: 11/26/2024 CLINICAL INDICATION: Male, 59 years old with history of Tube placement, TECHNIQUE: XR chest 1V portable view(s) obtained. FINDINGS: The heart size is mildly prominent. The pulmonary vasculature is prominent. Diffuse increased lung markings are present. Minimal pleural effusions are present Endotracheal tube tip is 4.7 cm above the soumya. Nasogastric tube tip is within left upper quadrant of the abdomen. Right central venous catheter tip is in the right atrial region IMPRESSION: 1. Clinical correlation for congestive heart failure. 2. Lines and catheters discussed above [facility], , 11/27/2024 6:54 AM
[2024-11-27] MEDS ORDERED: Magnesium Replacement Protocol 1 EACH MISC MISCELLANE PRN (10:27)
[2024-11-27 10:55] LABS: Influenza A Detected (Not Detectd); Influenza B Not Detected (Not Detectd); RSV Not Detected (Not Detectd)
[2024-11-27] MEDS: MAGNESIUM SULFATE-D5W PMX 1 GM in DEXTROSE/WATER 1 100ML.BAG IVPB ONE (11:25)
[2024-11-27 12:15] LABS: Glucose,Whole Blood 196 mg/dL (70-110)
--- NOTE | 2024-11-27 12:17 | PN ---
PROGRESS NOTE DATE OF SERVICE: 11/26/2024 CHIEF COMPLAINT: Respiratory failure and CA of the lung. HISTORY OF PRESENT ILLNESS: This gentleman deteriorated and is now on a ventilator. Family is still considering end of life decisions. PHYSICAL EXAMINATION: GENERAL: On the ventilator. CHEST: Breath sounds are heard bilaterally. CARDIAC: Normal. ABDOMEN: Soft. EXTREMITIES: Unchanged. IMPRESSION: 1. 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 2. Chronic obstructive pulmonary disease. 3. Respiratory failure. PLAN: Continue to follow. Follow up patient while he is in the intensive care unit and await decisions from the family regarding end of life care. At this time, he is a full code. MMODL / IJN: [id number] /
[2024-11-27] MEDS: OSELTAMIVIR 60 MG/10 ML ORAL SYRINGE PO SCH (12:23)
--- NOTE | 2024-11-27 14:05 | P.PN ---
Subjective Progress Note Date: 11/27/24 Seen in ICU at today's visit. He remains sedated and ventilated. Fever this morning of 102.3. Repeat viral testing, showing positive for flu A. Objective - Vital Signs Vital signs: Vital Signs Temp 101.6 F H 11/27/24 10:00 Pulse 120 H 11/27/24 10:00 Resp 22 11/27/24 10:00 BP 96/81 11/27/24 07:00 Pulse Ox 96 11/27/24 10:00 FiO2 60 11/27/24 08:33 Intake & Output 11/26/24 11/27/24 11/27/24 18:59 06:59 18:59 Intake Total 232.226 0792.130 1440.150 Output Total 1045 990 675 Balance -244.260 406.130 765.150 Weight 65.5 kg 68.1 kg Intake: IV 816 655 3273 .9NS 1000 0.9 600 900 300 Intake, IV Titration 70.740 146.130 50.150 Amount Norepinephrine 4 mg In 19.201 Sodium Chloride 0.9% 250 ml @ 0.03 MCG/KG/MIN 7. 784 mls/hr IV .Q24H [facility] Rx#:[id number] propofoL 1,000 mg In 70.740 146.130 30.949 Empty Bag 1 bag @ 15 MCG/ KG/MIN 5.895 mls/hr IV . [id number] [facility] Rx#:[id number] Tube Feeding 70 260 60 Other 60 90 30 Output: Urine 1045 990 675 Other: Voiding Method Indwelling Catheter Indwelling Catheter ABP, PAP, CO, CI - Last Documented Arterial Blood Pressure 92/58 - Constitutional General appearance: Present: no acute distress - Respiratory Details: ventilated breath sounds - Cardiovascular Details: skin warm and dry - Neurologic Neurologic Comment(s): sedated - Labs CBC & Chem 7: 11/27/24 04:50 11/27/24 12:16 Labs: Abnormal Lab Results - Last 24 Hours (Table) 11/26/24 11/26/24 11/26/24 Range/Units 17:03 18:02 20:52 WBC (3.8-10.6) k/uL RBC (4.30-5.90) m/uL Hgb (13.0-17.5) gm/dL Hct (39.0-53.0) % MCHC (31.0-37.0) g/dL RDW (11.5-15.5) % Neutrophils # (1.3-7.7) k/uL Lymphocytes # (1.0-4.8) k/uL ABG pO2 (83-108) mmHg ABG HCO3 (21-25) mmol/L ABG Total CO2 (19-24) mmol/L ABG O2 Saturation (94-97) % Hemoglobin (13.0-17.5) gm/dL Potassium (3.5-5.1) mmol/L Chloride (98-107) mmol/L Carbon Dioxide (22-30) mmol/L Glucose (74-99) mg/dL POC Glucose (mg/dL) 161 H 138 H 130 H (70-110) mg/dL Influenza Type A (PCR) (Not Detectd) 11/27/24 11/27/24 11/27/24 Range/Units 04:50 04:50 05:22 WBC 16.8 H (3.8-10.6) k/uL RBC 3.52 L (4.30-5.90) m/uL Hgb 10.5 L (13.0-17.5) gm/dL Hct 34.3 L (39.0-53.0) % MCHC 30.8 L (31.0-37.0) g/dL RDW 16.4 H (11.5-15.5) % Neutrophils # 15.5 H (1.3-7.7) k/uL Lymphocytes # 0.6 L (1.0-4.8) k/uL ABG pO2 (83-108) mmHg ABG HCO3 (21-25) mmol/L ABG Total CO2 (19-24) mmol/L ABG O2 Saturation (94-97) % Hemoglobin (13.0-17.5) gm/dL Potassium 3.3 L (3.5-5.1) mmol/L Chloride 108 H (98-107) mmol/L Carbon Dioxide 31 H (22-30) mmol/L Glucose 129 H (74-99) mg/dL POC Glucose (mg/dL) 138 H (70-110) mg/dL Influenza Type A (PCR) (Not Detectd) 11/27/24 11/27/24 Range/Units 05:57 09:53 WBC (3.8-10.6) k/uL RBC (4.30-5.90) m/uL Hgb (13.0-17.5) gm/dL Hct (39.0-53.0) % MCHC (31.0-37.0) g/dL RDW (11.5-15.5) % Neutrophils # (1.3-7.7) k/uL Lymphocytes # (1.0-4.8) k/uL ABG pO2 59 L* (83-108) mmHg ABG HCO3 29 H (21-25) mmol/L ABG Total CO2 31 H (19-24) mmol/L ABG O2 Saturation 90.5 L (94-97) % Hemoglobin 10.2 L (13.0-17.5) gm/dL Potassium (3.5-5.1) mmol/L Chloride (98-107) mmol/L Carbon Dioxide (22-30) mmol/L Glucose (74-99) mg/dL POC Glucose (mg/dL) (70-110) mg/dL Influenza Type A (PCR) Detected A (Not Detectd) Microbiology - Last 24 Hours (Table) 11/26/24 16:38 Gram Stain - Preliminary Sputum - Imaging and Cardiology Chest x-ray: report reviewed CT Scan - head: report reviewed Assessment and Plan (1) Altered mental status Current Visit: Yes Status: Acute Priority: High Code(s): R41.82 - ALTERED MENTAL STATUS, UNSPECIFIED SNOMED Code(s): 439019802 (2) Small cell lung cancer Current Visit: Yes Status: Acute Priority: Medium Code(s): C34.90 - MALIGNANT NEOPLASM OF UNSP PART OF UNSP BRONCHUS OR LUNG SNOMED Code(s): 503608508 Plan: Altered mental status -Patient has had similar episodes in the past, usually associated with seizure activity or disease progression in the brain. CT of the head without contrast did not report any acute or new findings, no reports of seizure activity. -MRSA infection. Influenza A. Cont treatment per Infectious disease. -Pt mental status was slowly improving during admit. However, Pt began having GABRIEL requiring bipap and subsequently intubation -MRI brain ordered, however scan was discontinued after multiple attempts as pt was unable to tolerate exam. -CT brain w/ contrast showing no definitive enhancing masses to suggest active metastatic disease. Suspect treated lesions in the bilateral occipital region Small cell lung cancer -Diagnosis and treatment as stated in consult -Patient has had disease recurrence, all within the brain. Treated with radiation -Patient has been on maintenance immunotherapy treatment for almost 2 years, no progression of disease/new disease -CT chest with contrast done, no new disease, small lilly pl effusions -Hold treatment for now pending course of hospitalization Discussed scan results and oncology plan of care with patients family. All questions and concerns were addressed
[2024-11-27] MEDS: POTASSIUM BICARBONATE/CIT AC 20 MEQ TABLET.EFF NG-TUBE SCH (14:30)
--- NOTE | 2024-11-27 15:24 | P.PN ---
Subjective Progress Note Date: 11/27/24 Principal diagnosis: Acute hypoxic respiratory failure secondary to congestive heart failure and possible atypical pneumonia On 11/20/2024, the patient is clinically stable. Remains atrial fibrillation. Oxygenation is further improved and the patient is currently on 3 L of oxygen by nasal cannula and I suggested weaning the FiO2 further., Comfortable with no respiratory distress. The white cell count of 18.2, slightly improved compared to yesterday with a hemoglobin 15.7 and a platelet count of 289. Serum bicarb is at 17. Sodium with a catheter 0.6 and a sodium levels at 136. The patient remains on DuoNeb nebulized treatments [id number]. The patient remains on prednisone burst taper. Remains on vancomycin regarding left olecranon bursitis. In regards to his atrial fibrillation, he is on metoprolol 100 mg p.o. daily amiodarone 200 mg p.o. twice a day. No anticoagulants for now. Hi Leona show entirely on our 11/21/2024, the patient is being seen for a follow- up. Overnight, the patient was restless and confused and the patient was given a combination of Haldol and Ativan and furthermore, the patient was given Dilaudid this morning. He is a bit lethargic and sleepy at this point. The patient is resting comfortably in bed. He is currently on 4 L of oxygen by nasal cannula. Denies having any significant shortness of breath. Resting comfortably in bed. No focal neurological deficits. Blood work from today shows a white cell count of 18.2 and the patient has a hemoglobin of 12.7 and a platelet count of 307. Sodium is at 139, BUN 27 with a creatinine of 0.6. Remains on IV vancomycin. Rest of the medications are essentially unchanged. He is on a prednisone burst taper. He is also on a combination of metoprolol and amiodarone regarding atrial fibrillation. 11/22/2024, no significant respiratory distress. However, the patient remains extremely fatigued, lethargic and weak. Working with physical therapy. He was able to sit up in a chair. The patient remains on oxygen 3 L with a pulse ox of 98%. No significant respiratory distress. White cell count is at 17 with a hemoglobin 12.5 and a platelet count of 265. BUN 20 with a creatinine of 0.5. Medications are essentially unchanged. Remains on IV vancomycin. Remains a trial fibrillation. Rate is controlled. On 11/23/2024, the patient's remains confused, lethargic and weak. No significant respiratory distress. He has a sitter at the bedside and overnight the patient was given Haldol 1 mg, Ativan 2 mg and Dilaudid 1 mg. The patient will be sent for an MRI of the brain. In terms of his respiratory status, the patient is currently on 2 L of oxygen by nasal cannula with a pulse ox of 93%. Sodium is at 140, potassium 3.7, BUN 21 with a creatinine of 0.6 and a calcium level is at 8.4. Limited cough. No significant respiratory distress. Neurologic exam is nonfocal. Patient was seen today on 11/25/2024, remains on the third floor, patient remains lethargic and weak, has been receiving Ativan and sedation intermittently, the patient himself is frail, confused, he is not a great historian, on 4 L nasal cannula O2 sat is 93 to 95%. Last CT of the chest was on 11/18/2024, showed small left and minimal right pleural effusion with compressive atelectasis, pulmonary lynch patient remains marginal at best. Patient is currently off BiPAP, on nasal cannula at 2 L, has not had a chest x-ray for a number of days, I would likely recommend a follow-up chest x-ray in the next 24 hours. Patient remains lethargic, weak, and he seems to be confused. Patient was seen today on 11/26/2024, early this morning, patient was extremely anxious agitated and he received Ativan for his extreme anxiety and agitation on the medical floor, patient pulmonary status became worse, he basically hyperventilated and became more hypercapnic. Initially placed on BiPAP but did not seem to do well, patient had to be intubated. And he was admitted to the ICU. ABG prior to intubation showed a pO2 of 58 pCO2 88 pH of 7.21, patient was quite obtunded and lethargic during the time of this ABG, and shortly after postintubation blood gas was done showing a pO2 of 185 pCO2 58 pH of 7.34. Hence I placed him on FiO2 of 40% tidal volume 450 rate of 20 and PEEP of 5. Patient is still receiving antibiotics in the form of Zosyn and vancomycin. Hemodynamics lynch, patient is not requiring any pressors. Chest x-ray this morning showed slight improvement in his perihilar infiltrates. CBC continues to show leukocytosis with WBC count of 15.9, hemoglobin of 13.0 hematocrit 43.3. Basic metabolic profile is unremarkable bicarb is a bit elevated at 33 renal profile is normal. After evaluating the patient, I went ahead and placed a right IJ triple-lumen catheter. As the patient had poor venous access. Patient was seen today on 11/27/2024, patient remains in the ICU intubated and mechanically ventilated. Remains on assist-control rate of 20 tidal volume 450 FiO2 60% with a PEEP of 5, his ABG on 40% showed a pO2 of 59 pCO2 43 pH of 7.44 hence his FiO2 was increased initially to 60% and later 50%. PEEP was increased to 8. Patient remains on propofol at 40 mcg/kg/min norepinephrine at 0.05 mcg/kg/min he is on 0.9 normal saline at 75 mL/h and he is receiving vital AF at 30 cc/h. Patient remains on Zosyn, sputum from 11/26 was positive for haemophilus influenza, continues to have leukocytosis with WBC of 16.8, hemoglobin 10.5., Basic metabolic profile is normal renal profile is normal electrolytes are normal, tested patient for influenza type a came back positive and in addition to this patient has haemophilus influenza in the sputum. Obviously this is a bacterial infection in the setting of influenza. Patient again remains on Tamiflu and he is also on Zosyn as per ID on the case. Chest x-ray continues to show evidence of bilateral infiltrates/interstitial infiltrates, doubt congestive heart failure. CT of the brain yesterday showed no definite enhancing masses to suggest brain metastasis. Patient did have persistent bilateral round low-density occipital lesions with rim calcifications, noted previously., Likely related to treated metastatic lesions. Objective - Vital Signs Vital signs: Vital Signs Temp 100.5 F H 11/27/24 12:00 Pulse 114 H 11/27/24 14:00 Resp 25 H 11/27/24 14:00 BP 104/76 11/27/24 14:00 Pulse Ox 96 11/27/24 14:00 FiO2 50 11/27/24 13:00 Intake & Output 11/26/24 11/27/24 11/27/24 18:59 06:59 18:59 Intake Total 695.129 1879.130 1940.150 Output Total 1045 990 925 Balance -244.260 091.225 6720.150 Weight 65.5 kg 68.1 kg Intake: IV 027 464 6141 .9NS 1000 0.9 600 900 600 Intake, IV Titration 70.740 146.130 50.150 Amount Norepinephrine 4 mg In 19.201 Sodium Chloride 0.9% 250 ml @ 0.03 MCG/KG/MIN 7. 784 mls/hr IV .Q24H [facility] Rx#:[id number] propofoL 1,000 mg In 70.740 146.130 30.949 Empty Bag 1 bag @ 15 MCG/ KG/MIN 5.895 mls/hr IV . [id number] [facility] Rx#:[id number] Tube Feeding 70 260 230 Other 60 90 60 Output: Urine 1045 990 925 Other: Voiding Method Indwelling Catheter Indwelling Catheter ABP, PAP, CO, CI - Last Documented Arterial Blood Pressure 99/57 - Exam Physical exam revealed 59-year-old white male intubated, mechanically ventilated. Head: Atraumatic, normocephalic HEENT endotracheal tube and orogastric tube are intact. Examination is grossly unremarkable. Mucous membranes are moist. No oral lesions. Neck supple. Full range of motion. No adenopathy thyromegaly or neck vein distention. Cardiovascular examination distant S1-S2, no S3 gallop, no murmur.. Lungs: Scattered rhonchi noted bilaterally no wheezing Abdomen soft bowel sounds are heard. No masses or tenderness. Extremities superficial ulcerations, muscle wasting, good pulses bilaterally. Skin reveals a left elbow with open superficial wound. Multiple superficial ulcerations noted in lower extremities, over the toes and patient does have right foot cool to touch, palpable pulses. Neurologic could not fully assess patient is sedated and mechanically ventilated. Psychiatric: Could not assess - Labs CBC & Chem 7: 11/27/24 04:50 11/27/24 12:16 Labs: Abnormal Lab Results - Last 24 Hours (Table) 11/26/24 11/26/24 11/26/24 Range/Units 17:03 18:02 20:52 WBC (3.8-10.6) k/uL RBC (4.30-5.90) m/uL Hgb (13.0-17.5) gm/dL Hct (39.0-53.0) % MCHC (31.0-37.0) g/dL RDW (11.5-15.5) % Neutrophils # (1.3-7.7) k/uL Lymphocytes # (1.0-4.8) k/uL ABG pO2 (83-108) mmHg ABG HCO3 (21-25) mmol/L ABG Total CO2 (19-24) mmol/L ABG O2 Saturation (94-97) % Hemoglobin (13.0-17.5) gm/dL Potassium (3.5-5.1) mmol/L Chloride (98-107) mmol/L Carbon Dioxide (22-30) mmol/L Glucose (74-99) mg/dL POC Glucose (mg/dL) 161 H 138 H 130 H (70-110) mg/dL Influenza Type A (PCR) (Not Detectd) 11/27/24 11/27/24 11/27/24 Range/Units 04:50 04:50 05:22 WBC 16.8 H (3.8-10.6) k/uL RBC 3.52 L (4.30-5.90) m/uL Hgb 10.5 L (13.0-17.5) gm/dL Hct 34.3 L (39.0-53.0) % MCHC 30.8 L (31.0-37.0) g/dL RDW 16.4 H (11.5-15.5) % Neutrophils # 15.5 H (1.3-7.7) k/uL Lymphocytes # 0.6 L (1.0-4.8) k/uL ABG pO2 (83-108) mmHg ABG HCO3 (21-25) mmol/L ABG Total CO2 (19-24) mmol/L ABG O2 Saturation (94-97) % Hemoglobin (13.0-17.5) gm/dL Potassium 3.3 L (3.5-5.1) mmol/L Chloride 108 H (98-107) mmol/L Carbon Dioxide 31 H (22-30) mmol/L Glucose 129 H (74-99) mg/dL POC Glucose (mg/dL) 138 H (70-110) mg/dL Influenza Type A (PCR) (Not Detectd) 11/27/24 11/27/24 11/27/24 Range/Units 05:57 09:53 12:13 WBC (3.8-10.6) k/uL RBC (4.30-5.90) m/uL Hgb (13.0-17.5) gm/dL Hct (39.0-53.0) % MCHC (31.0-37.0) g/dL RDW (11.5-15.5) % Neutrophils # (1.3-7.7) k/uL Lymphocytes # (1.0-4.8) k/uL ABG pO2 59 L* (83-108) mmHg ABG HCO3 29 H (21-25) mmol/L ABG Total CO2 31 H (19-24) mmol/L ABG O2 Saturation 90.5 L (94-97) % Hemoglobin 10.2 L (13.0-17.5) gm/dL Potassium (3.5-5.1) mmol/L Chloride (98-107) mmol/L Carbon Dioxide (22-30) mmol/L Glucose (74-99) mg/dL POC Glucose (mg/dL) 196 H (70-110) mg/dL Influenza Type A (PCR) Detected A (Not Detectd) Microbiology - Last 24 Hours (Table) 11/26/24 16:38 Gram Stain - Preliminary Sputum Sputum Culture - Preliminary Haemophilus influenzae 11/26/24 06:55 Blood Culture - Preliminary Blood Assessment and Plan Assessment: Impression: Acute on chronic hypoxic and hypercapnic respiratory failure, requiring intubation and mechanical ventilation shortly after he received Ativan for agitation on the medical floor. olecranon bursitis, treated Haemophilus influenza pneumonia, in the setting of acute influenza A infection/superimposed bacterial pneumonia Acute influenza A infection Atrial fibrillation with controlled ventricular response. The patient remains on a combination of amiodarone and metoprolol Metastatic small cell lung cancer, Chronic metabolic encephalopathy, multifactorial mostly with chronic hypercapnia Hypertension. Severe hypokalemia, improved Elevated troponins, possibly secondary to supply/demand mismatch. Altered mental status, most likely secondary to metabolic encephalopathy History of seizure disorder. Recommendation: Continue ventilatory support, patient does not seem to be ready for any weaning at this point. Nutritional support/enteral feeding GI and DVT prophylaxis Continue bronchodilators Continue antibiotics/Zosyn Continue Tamiflu Continue bronchodilators Continue systemic steroids Continue metoprolol and amiodarone Continue to monitor mental status Prognosis i remains extremely poor Patient remains critically ill No plans to wean or extubate Critical care time is 32 minutes not including the time spent on procedures Time with Patient: Greater than 30
[2024-11-27 17:51] LABS: Glucose,Whole Blood 194 mg/dL (70-110)
--- NOTE | 2024-11-27 23:11 | PN ---
PROGRESS NOTE DATE OF SERVICE: 11/27/2024 CHIEF COMPLAINT: CA of the lung and respiratory failure. HISTORY OF PRESENT ILLNESS: This gentleman is still on the ventilator. Condition has not improved. He is running a temperature now. White count is 16,800 and his potassium is down again to 3.3. His pulse ox is 59%. PHYSICAL EXAMINATION: GENERAL: He is still on the ventilator. Peripheral perfusion is diminished. CARDIAC: Normal. ABDOMEN: Soft. IMPRESSION: 1. Carcinoma of the lung. 2. Possible sepsis. 3. Respiratory failure. 4. Hypokalemia. PLAN: The patient will be continued on the ventilator. Further laboratory studies were ordered. Family has been approached about hospice and apparently have not made a decision to restrict care. MMODL / IJN: [id number] /
[2024-11-27 23:55] LABS: Glucose,Whole Blood 138 mg/dL (70-110)
[2024-11-28 05:26] LABS: ABG Base Excess 5.2 mmol/L; ABG HCO3 30 mmol/L (21-25); ABG Oxygen Saturation 94.6 % (94-97); ABG PCO2 47 mmHg (35-45); ABG PH 7.42 (7.35-7.45); ABG PO2 75 mmHg (83-108); ABG TCO2 32 mmol/L (19-24)
[2024-11-28 05:28] LABS: Allen Test Performed? no
[2024-11-28 05:37] LABS: Glucose,Whole Blood 139 mg/dL (70-110)
[2024-11-28 05:46] LABS: Anisocytosis Slight; Basophils % (A) 0 %; Eosinophils % (A) 0 %; HCT 32.9 % (39.0-53.0); Hypochromasia Moderate; Lymphocytes # (A) 0.7 k/uL (1.0-4.8); Lymphocytes % (A) 5 %; MCH 29.6 pg (25.0-35.0); MCHC 30.4 g/dL (31.0-37.0); MCV 97.4 fL (80.0-100.0); Macrocytosis Slight; Mean Platelet Volume 9.1; Monocytes # (A) 0.3 k/uL (0-1.0); Monocytes % (A) 2 %; Neutrophils # (A) 12.5 k/uL (1.3-7.7); Neutrophils % (A) 93 %; Platelet Count 198 k/uL (150-450); RBC 3.38 m/uL (4.30-5.90); RDW 16.6 % (11.5-15.5); WBC 13.5 k/uL (3.8-10.6)
[2024-11-28 06:09] LABS: African American GFR (CKD) >90 (>60 ml/min/1.73 sqM); Anion Gap 2 mmol/L; Blood Urea Nitrogen 18 mg/dL (9-20); Calcium 8.7 mg/dL (8.4-10.2); Carbon Dioxide 33 mmol/L (22-30); Chloride 108 mmol/L (98-107); Glucose 125 mg/dL (74-99); Magnesium 2.1 mg/dL (1.6-2.3); Non-African American GFR(CKD) >90 (>60 ml/min/1.73 sqM); Sodium 143 mmol/L (137-145)
[2024-11-28] MEDS: POTASSIUM BICARBONATE/CIT AC 20 MEQ TABLET.EFF NG-TUBE SCH ×2 (08:15→08:31)
--- NOTE | 2024-11-28 08:44 | XR ---
EXAMINATION TYPE: XR chest 1V portable DATE OF EXAM: 11/28/2024 5:17 AM COMPARISON: 11/27/2024 CLINICAL INDICATION: Male, 59 years old with history of Tube placement, difficulty breathing TECHNIQUE: XR chest 1V portable view(s) obtained. FINDINGS: The heart size is borderline prominent. The pulmonary vasculature is normal. Retrocardiac infiltrate appears to be present. Small left pleural effusion is not excluded. Scattered infiltrates in the right perihilar and right lower lobe are present. Endotracheal tube tip is 4.4 cm above the soumya. Nasogastric tube transverses the thorax. Right cent ral venous catheter tip is in the right atrium IMPRESSION: 1. Left lower lobe retrocardiac opacity. Correlate for atelectasis and pneumonia. Continued follow-up is recommended. 2. Scattered right perihilar and right lower lobe infiltrates. Findings are worsening over the interv al. [facility], , 11/28/2024 8:42 AM
[2024-11-28 12:01] LABS: Glucose,Whole Blood 134 mg/dL (70-110)
--- NOTE | 2024-11-28 12:53 | P.PN ---
Subjective Progress Note Date: 11/28/24 Principal diagnosis: Acute hypoxic respiratory failure secondary to congestive heart failure and possible atypical pneumonia On 11/20/2024, the patient is clinically stable. Remains atrial fibrillation. Oxygenation is further improved and the patient is currently on 3 L of oxygen by nasal cannula and I suggested weaning the FiO2 further., Comfortable with no respiratory distress. The white cell count of 18.2, slightly improved compared to yesterday with a hemoglobin 15.7 and a platelet count of 289. Serum bicarb is at 17. Sodium with a catheter 0.6 and a sodium levels at 136. The patient remains on DuoNeb nebulized treatments [id number]. The patient remains on prednisone burst taper. Remains on vancomycin regarding left olecranon bursitis. In regards to his atrial fibrillation, he is on metoprolol 100 mg p.o. daily amiodarone 200 mg p.o. twice a day. No anticoagulants for now. Hi Leona show entirely on our 11/21/2024, the patient is being seen for a follow- up. Overnight, the patient was restless and confused and the patient was given a combination of Haldol and Ativan and furthermore, the patient was given Dilaudid this morning. He is a bit lethargic and sleepy at this point. The patient is resting comfortably in bed. He is currently on 4 L of oxygen by nasal cannula. Denies having any significant shortness of breath. Resting comfortably in bed. No focal neurological deficits. Blood work from today shows a white cell count of 18.2 and the patient has a hemoglobin of 12.7 and a platelet count of 307. Sodium is at 139, BUN 27 with a creatinine of 0.6. Remains on IV vancomycin. Rest of the medications are essentially unchanged. He is on a prednisone burst taper. He is also on a combination of metoprolol and amiodarone regarding atrial fibrillation. 11/22/2024, no significant respiratory distress. However, the patient remains extremely fatigued, lethargic and weak. Working with physical therapy. He was able to sit up in a chair. The patient remains on oxygen 3 L with a pulse ox of 98%. No significant respiratory distress. White cell count is at 17 with a hemoglobin 12.5 and a platelet count of 265. BUN 20 with a creatinine of 0.5. Medications are essentially unchanged. Remains on IV vancomycin. Remains a trial fibrillation. Rate is controlled. On 11/23/2024, the patient's remains confused, lethargic and weak. No significant respiratory distress. He has a sitter at the bedside and overnight the patient was given Haldol 1 mg, Ativan 2 mg and Dilaudid 1 mg. The patient will be sent for an MRI of the brain. In terms of his respiratory status, the patient is currently on 2 L of oxygen by nasal cannula with a pulse ox of 93%. Sodium is at 140, potassium 3.7, BUN 21 with a creatinine of 0.6 and a calcium level is at 8.4. Limited cough. No significant respiratory distress. Neurologic exam is nonfocal. Patient was seen today on 11/25/2024, remains on the third floor, patient remains lethargic and weak, has been receiving Ativan and sedation intermittently, the patient himself is frail, confused, he is not a great historian, on 4 L nasal cannula O2 sat is 93 to 95%. Last CT of the chest was on 11/18/2024, showed small left and minimal right pleural effusion with compressive atelectasis, pulmonary lynch patient remains marginal at best. Patient is currently off BiPAP, on nasal cannula at 2 L, has not had a chest x-ray for a number of days, I would likely recommend a follow-up chest x-ray in the next 24 hours. Patient remains lethargic, weak, and he seems to be confused. Patient was seen today on 11/26/2024, early this morning, patient was extremely anxious agitated and he received Ativan for his extreme anxiety and agitation on the medical floor, patient pulmonary status became worse, he basically hyperventilated and became more hypercapnic. Initially placed on BiPAP but did not seem to do well, patient had to be intubated. And he was admitted to the ICU. ABG prior to intubation showed a pO2 of 58 pCO2 88 pH of 7.21, patient was quite obtunded and lethargic during the time of this ABG, and shortly after postintubation blood gas was done showing a pO2 of 185 pCO2 58 pH of 7.34. Hence I placed him on FiO2 of 40% tidal volume 450 rate of 20 and PEEP of 5. Patient is still receiving antibiotics in the form of Zosyn and vancomycin. Hemodynamics lynch, patient is not requiring any pressors. Chest x-ray this morning showed slight improvement in his perihilar infiltrates. CBC continues to show leukocytosis with WBC count of 15.9, hemoglobin of 13.0 hematocrit 43.3. Basic metabolic profile is unremarkable bicarb is a bit elevated at 33 renal profile is normal. After evaluating the patient, I went ahead and placed a right IJ triple-lumen catheter. As the patient had poor venous access. Patient was seen today on 11/27/2024, patient remains in the ICU intubated and mechanically ventilated. Remains on assist-control rate of 20 tidal volume 450 FiO2 60% with a PEEP of 5, his ABG on 40% showed a pO2 of 59 pCO2 43 pH of 7.44 hence his FiO2 was increased initially to 60% and later 50%. PEEP was increased to 8. Patient remains on propofol at 40 mcg/kg/min norepinephrine at 0.05 mcg/kg/min he is on 0.9 normal saline at 75 mL/h and he is receiving vital AF at 30 cc/h. Patient remains on Zosyn, sputum from 11/26 was positive for haemophilus influenza, continues to have leukocytosis with WBC of 16.8, hemoglobin 10.5., Basic metabolic profile is normal renal profile is normal electrolytes are normal, tested patient for influenza type a came back positive and in addition to this patient has haemophilus influenza in the sputum. Obviously this is a bacterial infection in the setting of influenza. Patient again remains on Tamiflu and he is also on Zosyn as per ID on the case. Chest x-ray continues to show evidence of bilateral infiltrates/interstitial infiltrates, doubt congestive heart failure. CT of the brain yesterday showed no definite enhancing masses to suggest brain metastasis. Patient did have persistent bilateral round low-density occipital lesions with rim calcifications, noted previously., Likely related to treated metastatic lesions. Patient was seen today on 11/28/2024, remains in the ICU, intubated and mechanically ventilated and he is now requiring norepinephrine at 0.03 mcg/kg/min he is on assist-control rate of 20 tidal volume 450 FiO2 50% and PEEP of 5 ABG is marginal with a pO2 of 75 pCO2 47 pH of 7.42 patient remains on Zosyn, chest x-ray continues show bilateral multifocal infiltrates. Patient is requiring propofol at 50 mcg/kg/min he is also on vital AF at 65/65. Today I will give the patient a trial of sedation interruption and assessment of mental status, and if his mental status is appropriate, may give the patient a trial of pressure support and CPAP. WBC is 13.5 hemoglobin is 10 electrolytes are basically unremarkable except for low potassium of 3.0. Bicarb is 33. Blood sugar is 134 Objective - Vital Signs Vital signs: Vital Signs Temp 99.2 F 11/28/24 04:00 Pulse 108 H 11/28/24 11:38 Resp 20 11/28/24 07:00 BP 101/69 11/28/24 04:00 Pulse Ox 98 11/28/24 07:00 FiO2 50 11/28/24 11:59 Intake & Output 11/27/24 11/28/24 11/28/24 18:59 06:59 18:59 Intake Total 2626.030 1889.820 364.494 Output Total 1225 865 130 Balance 0772.815 9908.820 234.494 Weight 71.2 kg Intake: IV 1900 933 181 .9NS pressure bag 1000 33 6 0.9 Normal Saline 900 900 150 Piperacillin-Tazobactam 3 25 .375 gm In Sodium Chloride 0.9% 100 ml @ 25 mls/hr IVPB Q8HR [facility] Rx# :[id number] Intake, IV Titration 246.030 306.820 83.494 Amount Norepinephrine 4 mg In 122.333 91.802 Sodium Chloride 0.9% 250 ml @ 0.03 MCG/KG/MIN 7. 784 mls/hr IV .Q24H [facility] Rx#:[id number] propofoL 1,000 mg In 30.949 Empty Bag 1 bag @ 15 MCG/ KG/MIN 5.895 mls/hr IV . [id number] [facility] Rx#:[id number] propofoL 1,000 mg In 92.748 215.018 83.494 Empty Bag 1 bag @ 15 MCG/ KG/MIN 5.895 mls/hr IV . [id number] [facility] Rx#:[id number] Oral 50 Tube Feeding 390 560 50 Other 90 90 Output: Urine 1225 865 130 Other: Voiding Method Indwelling Catheter Indwelling Catheter ABP, PAP, CO, CI - Last Documented Arterial Blood Pressure 114/66 - Exam Physical exam revealed 59-year-old white male intubated, mechanically ventilated. Sedated. Head: Atraumatic, normocephalic HEENT endotracheal tube and orogastric tube are intact. Examination is grossly unremarkable. Mucous membranes are moist. No oral lesions. Neck supple. Full range of motion. No adenopathy thyromegaly or neck vein distention. Cardiovascular examination distant S1-S2, no S3 gallop, no murmur.. Lungs: Scattered rhonchi noted bilaterally no wheezing Abdomen soft bowel sounds are heard. No masses or tenderness. Extremities superficial ulcerations, muscle wasting, good pulses bilaterally. Skin: Multiple superficial ulcerations noted in lower extremities, over the toes and patient does have right foot cool to touch, palpable pulses. Neurologic could not fully assess patient is sedated and mechanically ventilated. Psychiatric: Could not assess - Labs CBC & Chem 7: 11/28/24 06:00 11/28/24 05:38 Labs: Abnormal Lab Results - Last 24 Hours (Table) 11/27/24 11/27/24 11/28/24 Range/Units 17:50 23:54 05:21 WBC (3.8-10.6) k/uL RBC (4.30-5.90) m/uL Hgb (13.0-17.5) gm/dL Hct (39.0-53.0) % MCHC (31.0-37.0) g/dL RDW (11.5-15.5) % Neutrophils # (1.3-7.7) k/uL Lymphocytes # (1.0-4.8) k/uL ABG pCO2 47 H (35-45) mmHg ABG pO2 75 L (83-108) mmHg ABG HCO3 30 H (21-25) mmol/L ABG Total CO2 32 H (19-24) mmol/L Hemoglobin 9.8 L (13.0-17.5) gm/dL Potassium (3.5-5.1) mmol/L Chloride (98-107) mmol/L Carbon Dioxide (22-30) mmol/L Glucose (74-99) mg/dL POC Glucose (mg/dL) 194 H 138 H (70-110) mg/dL 11/28/24 11/28/24 11/28/24 Range/Units 05:36 05:38 06:00 WBC 13.5 H (3.8-10.6) k/uL RBC 3.38 L (4.30-5.90) m/uL Hgb 10.0 L (13.0-17.5) gm/dL Hct 32.9 L (39.0-53.0) % MCHC 30.4 L (31.0-37.0) g/dL RDW 16.6 H (11.5-15.5) % Neutrophils # 12.5 H (1.3-7.7) k/uL Lymphocytes # 0.7 L (1.0-4.8) k/uL ABG pCO2 (35-45) mmHg ABG pO2 (83-108) mmHg ABG HCO3 (21-25) mmol/L ABG Total CO2 (19-24) mmol/L Hemoglobin (13.0-17.5) gm/dL Potassium 3.0 L (3.5-5.1) mmol/L Chloride 108 H (98-107) mmol/L Carbon Dioxide 33 H (22-30) mmol/L Glucose 125 H (74-99) mg/dL POC Glucose (mg/dL) 139 H (70-110) mg/dL 11/28/24 Range/Units 11:59 WBC (3.8-10.6) k/uL RBC (4.30-5.90) m/uL Hgb (13.0-17.5) gm/dL Hct (39.0-53.0) % MCHC (31.0-37.0) g/dL RDW (11.5-15.5) % Neutrophils # (1.3-7.7) k/uL Lymphocytes # (1.0-4.8) k/uL ABG pCO2 (35-45) mmHg ABG pO2 (83-108) mmHg ABG HCO3 (21-25) mmol/L ABG Total CO2 (19-24) mmol/L Hemoglobin (13.0-17.5) gm/dL Potassium (3.5-5.1) mmol/L Chloride (98-107) mmol/L Carbon Dioxide (22-30) mmol/L Glucose (74-99) mg/dL POC Glucose (mg/dL) 134 H (70-110) mg/dL Microbiology - Last 24 Hours (Table) 11/26/24 16:38 Gram Stain - Final Sputum Sputum Culture - Final Haemophilus influenzae 11/26/24 06:55 Blood Culture - Preliminary Blood Assessment and Plan Assessment: Impression: Acute on chronic hypoxic and hypercapnic respiratory failure, requiring intubation and mechanical ventilation shortly after he received Ativan for agitation on the medical floor. olecranon bursitis, treated Haemophilus influenza pneumonia, in the setting of acute influenza A infection/superimposed bacterial pneumonia Acute influenza A infection Atrial fibrillation with controlled ventricular response. The patient remains on a combination of amiodarone and metoprolol Metastatic small cell lung cancer, Chronic metabolic encephalopathy, multifactorial mostly with chronic hypercapnia Hypertension. Severe hypokalemia, improved Elevated troponins, possibly secondary to supply/demand mismatch. Altered mental status, most likely secondary to metabolic encephalopathy History of seizure disorder. Recommendation: Continue ventilatory support Continue nutritional support/enteral feeding GI and DVT prophylaxis Continue bronchodilators Continue antibiotics/Zosyn Continue Tamiflu Continue bronchodilators Continue systemic steroids Continue metoprolol and amiodarone Sedation interruption today and assessment of mental status Prognosis i remains extremely poor Patient remains critically ill May give the patient a trial of pressure support and CPAP today depending on his overall mental status off sedation. Critical care time is 33 minutes not including the time spent on procedures Time with Patient: Greater than 30
--- NOTE | 2024-11-28 14:58 | XR ---
EXAMINATION TYPE: XR chest 1V portable DATE OF EXAM: 11/28/2024 2:13 PM COMPARISON: 11/28/2024 CLINICAL INDICATION: Male, 59 years old with history of og tube placement, TECHNIQUE: XR chest 1V portable view(s) obtained. FINDINGS: The heart size is normal. The pulmonary vasculature is normal. Left lower lobe infiltrate is present. Endotracheal tube tip is 1.7 cm above the soumya. Right central venous catheter tip is in the region of the atrium. Nasogastric tube transverses the th orax IMPRESSION: 1. Left lower lobe infiltrate. Correlate for pneumonia. Follow-up recommended. 2. Endotracheal tube tip 1.7 cm above the soumya. Readjustment is recommended. 3. Nasogastric tube transverses the thorax with the tip in the left upper quadrant of the abdomen [facility], , 11/28/2024 2:55 PM
[2024-11-28 17:25] LABS: Glucose,Whole Blood 154 mg/dL (70-110)
[2024-11-28] MEDS: INSULIN LISPRO (HumaLOG) 100 UNIT/ML 10 mL VL SQ SCH (19:06)
[2024-11-29 00:09] LABS: Glucose,Whole Blood 114 mg/dL (70-110)
[2024-11-29 04:27] LABS: ABG Base Excess 5.9 mmol/L; ABG HCO3 31 mmol/L (21-25); ABG Oxygen Saturation 96.2 % (94-97); ABG PCO2 44 mmHg (35-45); ABG PH 7.45 (7.35-7.45); ABG PO2 84 mmHg (83-108); ABG TCO2 32 mmol/L (19-24)
[2024-11-29 04:29] LABS: Allen Test Performed? no
[2024-11-29 05:16] LABS: Glucose,Whole Blood 130 mg/dL (70-110)
[2024-11-29 05:27] LABS: Anisocytosis Slight; Basophils % (A) 0 %; Eosinophils % (A) 1 %; HCT 33.1 % (39.0-53.0); HGB 9.7 gm/dL (13.0-17.5); Hypochromasia Marked; Lymphocytes # (A) 0.8 k/uL (1.0-4.8); Lymphocytes % (A) 10 %; MCH 28.7 pg (25.0-35.0); MCHC 29.3 g/dL (31.0-37.0); MCV 97.9 fL (80.0-100.0); Macrocytosis Slight; Mean Platelet Volume 8.3; Monocytes # (A) 0.2 k/uL (0-1.0); Monocytes % (A) 2 %; Neutrophils # (A) 6.8 k/uL (1.3-7.7); Neutrophils % (A) 86 %; Platelet Count 185 k/uL (150-450); RBC 3.39 m/uL (4.30-5.90); RDW 16.4 % (11.5-15.5); WBC 7.9 k/uL (3.8-10.6)
[2024-11-29 05:40] LABS: ALT 25 U/L (4-49); AST 39 U/L (17-59); African American GFR (CKD) >90 (>60 ml/min/1.73 sqM); Albumin 2.2 g/dL (3.5-5.0); Alkaline Phosphatase 65 U/L (38-126); Anion Gap 5 mmol/L; Blood Urea Nitrogen 20 mg/dL (9-20); Calcium 8.3 mg/dL (8.4-10.2); Carbon Dioxide 30 mmol/L (22-30); Chloride 108 mmol/L (98-107); Glucose 123 mg/dL (74-99); Non-African American GFR(CKD) >90 (>60 ml/min/1.73 sqM); Potassium 3.5 mmol/L (3.5-5.1); Sodium 143 mmol/L (137-145); Total Bilirubin 0.3 mg/dL (0.2-1.3); Total Protein 4.7 g/dL (6.3-8.2)
[2024-11-29] MEDS: POTASSIUM BICARBONATE/CIT AC 20 MEQ TABLET.EFF NG-TUBE SCH (06:23)
--- NOTE | 2024-11-29 08:00 | P.PN ---
Subjective Progress Note Date: 11/27/24 Principal diagnosis: Reason for follow-up is left elbow septic olecranon bursitis Patient is a 59-year-old male with a past medical history significant for hypertension seizure disorder atrial fibrillation he did have a metastatic lung cancer has been brought to the hospital for worsening swelling to the left elbow with a culture positive for MRSA concerning for septic olecranon bursitis. On today's evaluation that is 11/27/2024 patient did spike a fever this morning of 102.3 F, the patient remains to be intubated on the vent FiO2 currently at 50% no significant currently sedation is ability diarrhea and the changes reported by nursing staff. Patient white count is slightly up to 16.8 creatinine is 0.68, patient tested positive for influenza A, sputum cultures are pending Objective - Vital Signs Vital signs: Vital Signs Temp 101.6 F H 11/27/24 10:00 Pulse 124 H 11/27/24 12:04 Resp 27 H 11/27/24 11:00 BP 94/67 11/27/24 11:00 Pulse Ox 97 11/27/24 11:00 FiO2 50 11/27/24 12:04 Intake & Output 11/26/24 11/27/24 11/27/24 18:59 06:59 18:59 Intake Total 488.813 2427.130 1440.150 Output Total 1045 990 675 Balance -244.260 406.130 765.150 Weight 65.5 kg 68.1 kg Intake: IV 929 356 1586 .9NS 1000 0.9 600 900 300 Intake, IV Titration 70.740 146.130 50.150 Amount Norepinephrine 4 mg In 19.201 Sodium Chloride 0.9% 250 ml @ 0.03 MCG/KG/MIN 7. 784 mls/hr IV .Q24H [facility] Rx#:[id number] propofoL 1,000 mg In 70.740 146.130 30.949 Empty Bag 1 bag @ 15 MCG/ KG/MIN 5.895 mls/hr IV . [id number] [facility] Rx#:[id number] Tube Feeding 70 260 60 Other 60 90 30 Output: Urine 1045 990 675 Other: Voiding Method Indwelling Catheter Indwelling Catheter ABP, PAP, CO, CI - Last Documented Arterial Blood Pressure 108/61 - Exam GENERAL DESCRIPTION: Middle-age male intubated on the vent RESPIRATORY SYSTEM: Unlabored breathing , decreased breath sounds at bases HEART: S1 S2 regular rate and rhythm , ABDOMEN: Soft , no tenderness EXTREMITIES: Left elbow some swelling no redness or drainage - Labs CBC & Chem 7: 11/29/24 05:00 11/29/24 05:00 Labs: Abnormal Lab Results - Last 24 Hours (Table) 11/26/24 11/26/24 11/26/24 Range/Units 17:03 18:02 20:52 WBC (3.8-10.6) k/uL RBC (4.30-5.90) m/uL Hgb (13.0-17.5) gm/dL Hct (39.0-53.0) % MCHC (31.0-37.0) g/dL RDW (11.5-15.5) % Neutrophils # (1.3-7.7) k/uL Lymphocytes # (1.0-4.8) k/uL ABG pO2 (83-108) mmHg ABG HCO3 (21-25) mmol/L ABG Total CO2 (19-24) mmol/L ABG O2 Saturation (94-97) % Hemoglobin (13.0-17.5) gm/dL Potassium (3.5-5.1) mmol/L Chloride (98-107) mmol/L Carbon Dioxide (22-30) mmol/L Glucose (74-99) mg/dL POC Glucose (mg/dL) 161 H 138 H 130 H (70-110) mg/dL Influenza Type A (PCR) (Not Detectd) 11/27/24 11/27/24 11/27/24 Range/Units 04:50 04:50 05:22 WBC 16.8 H (3.8-10.6) k/uL RBC 3.52 L (4.30-5.90) m/uL Hgb 10.5 L (13.0-17.5) gm/dL Hct 34.3 L (39.0-53.0) % MCHC 30.8 L (31.0-37.0) g/dL RDW 16.4 H (11.5-15.5) % Neutrophils # 15.5 H (1.3-7.7) k/uL Lymphocytes # 0.6 L (1.0-4.8) k/uL ABG pO2 (83-108) mmHg ABG HCO3 (21-25) mmol/L ABG Total CO2 (19-24) mmol/L ABG O2 Saturation (94-97) % Hemoglobin (13.0-17.5) gm/dL Potassium 3.3 L (3.5-5.1) mmol/L Chloride 108 H (98-107) mmol/L Carbon Dioxide 31 H (22-30) mmol/L Glucose 129 H (74-99) mg/dL POC Glucose (mg/dL) 138 H (70-110) mg/dL Influenza Type A (PCR) (Not Detectd) 11/27/24 11/27/24 11/27/24 Range/Units 05:57 09:53 12:13 WBC (3.8-10.6) k/uL RBC (4.30-5.90) m/uL Hgb (13.0-17.5) gm/dL Hct (39.0-53.0) % MCHC (31.0-37.0) g/dL RDW (11.5-15.5) % Neutrophils # (1.3-7.7) k/uL Lymphocytes # (1.0-4.8) k/uL ABG pO2 59 L* (83-108) mmHg ABG HCO3 29 H (21-25) mmol/L ABG Total CO2 31 H (19-24) mmol/L ABG O2 Saturation 90.5 L (94-97) % Hemoglobin 10.2 L (13.0-17.5) gm/dL Potassium (3.5-5.1) mmol/L Chloride (98-107) mmol/L Carbon Dioxide (22-30) mmol/L Glucose (74-99) mg/dL POC Glucose (mg/dL) 196 H (70-110) mg/dL Influenza Type A (PCR) Detected A (Not Detectd) Microbiology - Last 24 Hours (Table) 11/26/24 16:38 Gram Stain - Preliminary Sputum Assessment and Plan (1) Septic olecranon bursitis of left elbow Current Visit: Yes Status: Acute Code(s): M71.122 - OTHER INFECTIVE BURSITIS, LEFT ELBOW SNOMED Code(s): 5893918092088515 (2) Allergy to cephalosporin Current Visit: No Status: Acute Code(s): Z88.1 - ALLERGY STATUS TO OTHER ANTIBIOTIC AGENTS SNOMED Code(s): 777740934 (3) Influenza A Current Visit: Yes Status: Acute Code(s): J10.1 - FLU DUE TO OTH IDENT INFLUENZA VIRUS W OTH RESP MANIFEST SNOMED Code(s): 495421974 (4) Pneumonia Current Visit: No Status: Acute Code(s): J18.9 - PNEUMONIA, UNSPECIFIED ORGANISM SNOMED Code(s): 604703988 Plan: 1patient being admitted to the hospital for left elbow pain swelling redness he did have a wound with a culture positive for MRSA in the outpatient setting now with concern for left elbow septic olecranon bursitis for the patient received adequate IV vancomycin. 2patient did have worsening of his respiratory status requiring intubation and concern for possible pneumonia blood and sputum culture has been requested and patient currently being treated with Zosyn 3-patient tested positive for influenza A for the patient be started on Tamiflu 75 mg twice a day for 5 days Dictation was produced using [employer] dictation software. please excuse any grammatical, word or spelling errors. Time with Patient: Greater than 30
--- NOTE | 2024-11-29 08:02 | P.PN ---
Subjective Progress Note Date: 11/28/24 Principal diagnosis: Reason for follow-up is left elbow septic olecranon bursitis Patient is a 59-year-old male with a past medical history significant for hypertension seizure disorder atrial fibrillation he did have a metastatic lung cancer has been brought to the hospital for worsening swelling to the left elbow with a culture positive for MRSA concerning for septic olecranon bursitis. On today's evaluation that is 11/28/2024,the patient did have resolution of his fever and is afebrile today patient remains to be intubated on the vent patient seem to be slightly more awake and trying to communicate, no significant purulent secretion through the ET or any changes reported by the nursing staff. The patient white count is down to 13.5 creatinine 0.72 Objective - Vital Signs Vital signs: Vital Signs Temp 99.2 F 11/28/24 04:00 Pulse 108 H 11/28/24 11:38 Resp 20 11/28/24 07:00 BP 101/69 11/28/24 04:00 Pulse Ox 98 11/28/24 07:00 FiO2 50 11/28/24 11:20 Intake & Output 11/27/24 11/28/24 11/28/24 18:59 06:59 18:59 Intake Total 2626.030 1889.820 359.6 Output Total 1225 865 130 Balance 3564.707 4665.820 229.6 Weight 71.2 kg Intake: IV 1900 933 181 .9NS pressure bag 1000 33 6 0.9 Normal Saline 900 900 150 Piperacillin-Tazobactam 3 25 .375 gm In Sodium Chloride 0.9% 100 ml @ 25 mls/hr IVPB Q8HR [facility] Rx# :[id number] Intake, IV Titration 246.030 306.820 78.6 Amount Norepinephrine 4 mg In 122.333 91.802 Sodium Chloride 0.9% 250 ml @ 0.03 MCG/KG/MIN 7. 784 mls/hr IV .Q24H [facility] Rx#:[id number] propofoL 1,000 mg In 30.949 Empty Bag 1 bag @ 15 MCG/ KG/MIN 5.895 mls/hr IV . [id number] [facility] Rx#:[id number] propofoL 1,000 mg In 92.748 215.018 78.6 Empty Bag 1 bag @ 15 MCG/ KG/MIN 5.895 mls/hr IV . [id number] [facility] Rx#:[id number] Oral 50 Tube Feeding 390 560 50 Other 90 90 Output: Urine 1225 865 130 Other: Voiding Method Indwelling Catheter Indwelling Catheter ABP, PAP, CO, CI - Last Documented Arterial Blood Pressure 114/66 - Exam GENERAL DESCRIPTION: Middle-age male intubated on the vent RESPIRATORY SYSTEM: Unlabored breathing , decreased breath sounds at bases HEART: S1 S2 regular rate and rhythm , ABDOMEN: Soft , no tenderness EXTREMITIES: Left elbow some swelling no redness or drainage - Labs CBC & Chem 7: 11/29/24 05:00 11/29/24 05:00 Labs: Abnormal Lab Results - Last 24 Hours (Table) 11/27/24 11/27/24 11/27/24 Range/Units 12:13 17:50 23:54 WBC (3.8-10.6) k/uL RBC (4.30-5.90) m/uL Hgb (13.0-17.5) gm/dL Hct (39.0-53.0) % MCHC (31.0-37.0) g/dL RDW (11.5-15.5) % Neutrophils # (1.3-7.7) k/uL Lymphocytes # (1.0-4.8) k/uL ABG pCO2 (35-45) mmHg ABG pO2 (83-108) mmHg ABG HCO3 (21-25) mmol/L ABG Total CO2 (19-24) mmol/L Hemoglobin (13.0-17.5) gm/dL Potassium (3.5-5.1) mmol/L Chloride (98-107) mmol/L Carbon Dioxide (22-30) mmol/L Glucose (74-99) mg/dL POC Glucose (mg/dL) 196 H 194 H 138 H (70-110) mg/dL 11/28/24 11/28/24 11/28/24 Range/Units 05:21 05:36 05:38 WBC (3.8-10.6) k/uL RBC (4.30-5.90) m/uL Hgb (13.0-17.5) gm/dL Hct (39.0-53.0) % MCHC (31.0-37.0) g/dL RDW (11.5-15.5) % Neutrophils # (1.3-7.7) k/uL Lymphocytes # (1.0-4.8) k/uL ABG pCO2 47 H (35-45) mmHg ABG pO2 75 L (83-108) mmHg ABG HCO3 30 H (21-25) mmol/L ABG Total CO2 32 H (19-24) mmol/L Hemoglobin 9.8 L (13.0-17.5) gm/dL Potassium 3.0 L (3.5-5.1) mmol/L Chloride 108 H (98-107) mmol/L Carbon Dioxide 33 H (22-30) mmol/L Glucose 125 H (74-99) mg/dL POC Glucose (mg/dL) 139 H (70-110) mg/dL 11/28/24 Range/Units 06:00 WBC 13.5 H (3.8-10.6) k/uL RBC 3.38 L (4.30-5.90) m/uL Hgb 10.0 L (13.0-17.5) gm/dL Hct 32.9 L (39.0-53.0) % MCHC 30.4 L (31.0-37.0) g/dL RDW 16.6 H (11.5-15.5) % Neutrophils # 12.5 H (1.3-7.7) k/uL Lymphocytes # 0.7 L (1.0-4.8) k/uL ABG pCO2 (35-45) mmHg ABG pO2 (83-108) mmHg ABG HCO3 (21-25) mmol/L ABG Total CO2 (19-24) mmol/L Hemoglobin (13.0-17.5) gm/dL Potassium (3.5-5.1) mmol/L Chloride (98-107) mmol/L Carbon Dioxide (22-30) mmol/L Glucose (74-99) mg/dL POC Glucose (mg/dL) (70-110) mg/dL Microbiology - Last 24 Hours (Table) 11/26/24 16:38 Gram Stain - Final Sputum Sputum Culture - Final Haemophilus influenzae 11/26/24 06:55 Blood Culture - Preliminary Blood Assessment and Plan (1) Septic olecranon bursitis of left elbow Current Visit: Yes Status: Acute Code(s): M71.122 - OTHER INFECTIVE BURSITIS, LEFT ELBOW SNOMED Code(s): 8883945529404663 (2) Allergy to cephalosporin Current Visit: No Status: Acute Code(s): Z88.1 - ALLERGY STATUS TO OTHER ANTIBIOTIC AGENTS SNOMED Code(s): 595105682 (3) MRSA (methicillin resistant Staphylococcus aureus) infection Current Visit: Yes Status: Acute Code(s): A49.02 - METHICILLIN RESIS STAPH INFECTION, UNSP SITE SNOMED Code(s): 072704834 (4) Influenza A Current Visit: Yes Status: Acute Code(s): J10.1 - FLU DUE TO OTH IDENT INFLUENZA VIRUS W OTH RESP MANIFEST SNOMED Code(s): 071977716 (5) Pneumonia Current Visit: No Status: Acute Code(s): J18.9 - PNEUMONIA, UNSPECIFIED ORGANISM SNOMED Code(s): 239381821 Plan: 1patient being admitted to the hospital for left elbow pain swelling redness he did have a wound with a culture positive for MRSA in the outpatient setting now with concern for left elbow septic olecranon bursitis for the patient received adequate IV vancomycin. 2patient with respiratory failure requiring intubation concerning for pneumonia blood and sputum culture has been requested and patient currently being treated with Zosyn 3-patient with influenza A to continue with Tamiflu 75 mg twice a day for 5 days Dictation was produced using [employer] dictation software. please excuse any grammatical, word or spelling errors. Time with Patient: Less than 30
--- NOTE | 2024-11-29 09:15 | XR ---
EXAMINATION TYPE: XR chest 1V portable DATE OF EXAM: 11/29/2024 4:44 AM COMPARISON: 11/28/2024 CLINICAL INDICATION: Male, 59 years old with history of Tube placement, TECHNIQUE: XR chest 1V portable view(s) obtained. FINDINGS: The heart size is normal. The pulmonary vasculature is normal. Mild diffuse increased lung markings are present findings are nonspecific. Atypical pneumonia and ate lectasis could be considered. Small left pleural effusion is present. Subtle left diaphragm remains present Endotracheal tube tip is 3.7 cm above soumya. Nasogastric tube transverses the thorax. Right central venous catheter tip is within the right atrium IMPRESSION: 1. Mild diffuse increased lung markings. Correlate for atelectasis or atypical pneumonia. 2. Small left pleural effusion. 3. Lines and catheters discussed above [facility], , 11/29/2024 9:13 AM
[2024-11-29] MEDS: HEPARIN SODIUM,PORCINE 5,000 UNIT/ML 1 ML VIAL SQ SCH (11:02)
[2024-11-29] MEDS: DEXMEDETOMIDINE/0.9% NACL(PMX) 400 MCG in EMPTY BAG 1 BAG IV SCH (11:02)
[2024-11-29] MEDS: PANTOPRAZOLE 40 MG/10 ML VIAL IVP SCH (11:02)
[2024-11-29 12:01] LABS: Glucose,Whole Blood 151 mg/dL (70-110)
[2024-11-29 12:35] LABS: ABG Base Excess 5.6 mmol/L; ABG HCO3 31 mmol/L (21-25); ABG Oxygen Saturation 96.9 % (94-97); ABG PCO2 45 mmHg (35-45); ABG PH 7.44 (7.35-7.45); ABG PO2 93 mmHg (83-108); ABG TCO2 32 mmol/L (19-24)
[2024-11-29 12:40] LABS: Allen Test Performed? NO
--- NOTE | 2024-11-29 14:16 | P.PN ---
Subjective Progress Note Date: 11/29/24 Principal diagnosis: Acute hypoxic respiratory failure secondary to congestive heart failure and possible atypical pneumonia On 11/20/2024, the patient is clinically stable. Remains atrial fibrillation. Oxygenation is further improved and the patient is currently on 3 L of oxygen by nasal cannula and I suggested weaning the FiO2 further., Comfortable with no respiratory distress. The white cell count of 18.2, slightly improved compared to yesterday with a hemoglobin 15.7 and a platelet count of 289. Serum bicarb is at 17. Sodium with a catheter 0.6 and a sodium levels at 136. The patient remains on DuoNeb nebulized treatments [id number]. The patient remains on prednisone burst taper. Remains on vancomycin regarding left olecranon bursitis. In regards to his atrial fibrillation, he is on metoprolol 100 mg p.o. daily amiodarone 200 mg p.o. twice a day. No anticoagulants for now. Hi Leona show entirely on our 11/21/2024, the patient is being seen for a follow- up. Overnight, the patient was restless and confused and the patient was given a combination of Haldol and Ativan and furthermore, the patient was given Dilaudid this morning. He is a bit lethargic and sleepy at this point. The patient is resting comfortably in bed. He is currently on 4 L of oxygen by nasal cannula. Denies having any significant shortness of breath. Resting comfortably in bed. No focal neurological deficits. Blood work from today shows a white cell count of 18.2 and the patient has a hemoglobin of 12.7 and a platelet count of 307. Sodium is at 139, BUN 27 with a creatinine of 0.6. Remains on IV vancomycin. Rest of the medications are essentially unchanged. He is on a prednisone burst taper. He is also on a combination of metoprolol and amiodarone regarding atrial fibrillation. 11/22/2024, no significant respiratory distress. However, the patient remains extremely fatigued, lethargic and weak. Working with physical therapy. He was able to sit up in a chair. The patient remains on oxygen 3 L with a pulse ox of 98%. No significant respiratory distress. White cell count is at 17 with a hemoglobin 12.5 and a platelet count of 265. BUN 20 with a creatinine of 0.5. Medications are essentially unchanged. Remains on IV vancomycin. Remains a trial fibrillation. Rate is controlled. On 11/23/2024, the patient's remains confused, lethargic and weak. No significant respiratory distress. He has a sitter at the bedside and overnight the patient was given Haldol 1 mg, Ativan 2 mg and Dilaudid 1 mg. The patient will be sent for an MRI of the brain. In terms of his respiratory status, the patient is currently on 2 L of oxygen by nasal cannula with a pulse ox of 93%. Sodium is at 140, potassium 3.7, BUN 21 with a creatinine of 0.6 and a calcium level is at 8.4. Limited cough. No significant respiratory distress. Neurologic exam is nonfocal. Patient was seen today on 11/25/2024, remains on the third floor, patient remains lethargic and weak, has been receiving Ativan and sedation intermittently, the patient himself is frail, confused, he is not a great historian, on 4 L nasal cannula O2 sat is 93 to 95%. Last CT of the chest was on 11/18/2024, showed small left and minimal right pleural effusion with compressive atelectasis, pulmonary lynch patient remains marginal at best. Patient is currently off BiPAP, on nasal cannula at 2 L, has not had a chest x-ray for a number of days, I would likely recommend a follow-up chest x-ray in the next 24 hours. Patient remains lethargic, weak, and he seems to be confused. Patient was seen today on 11/26/2024, early this morning, patient was extremely anxious agitated and he received Ativan for his extreme anxiety and agitation on the medical floor, patient pulmonary status became worse, he basically hyperventilated and became more hypercapnic. Initially placed on BiPAP but did not seem to do well, patient had to be intubated. And he was admitted to the ICU. ABG prior to intubation showed a pO2 of 58 pCO2 88 pH of 7.21, patient was quite obtunded and lethargic during the time of this ABG, and shortly after postintubation blood gas was done showing a pO2 of 185 pCO2 58 pH of 7.34. Hence I placed him on FiO2 of 40% tidal volume 450 rate of 20 and PEEP of 5. Patient is still receiving antibiotics in the form of Zosyn and vancomycin. Hemodynamics lynch, patient is not requiring any pressors. Chest x-ray this morning showed slight improvement in his perihilar infiltrates. CBC continues to show leukocytosis with WBC count of 15.9, hemoglobin of 13.0 hematocrit 43.3. Basic metabolic profile is unremarkable bicarb is a bit elevated at 33 renal profile is normal. After evaluating the patient, I went ahead and placed a right IJ triple-lumen catheter. As the patient had poor venous access. Patient was seen today on 11/27/2024, patient remains in the ICU intubated and mechanically ventilated. Remains on assist-control rate of 20 tidal volume 450 FiO2 60% with a PEEP of 5, his ABG on 40% showed a pO2 of 59 pCO2 43 pH of 7.44 hence his FiO2 was increased initially to 60% and later 50%. PEEP was increased to 8. Patient remains on propofol at 40 mcg/kg/min norepinephrine at 0.05 mcg/kg/min he is on 0.9 normal saline at 75 mL/h and he is receiving vital AF at 30 cc/h. Patient remains on Zosyn, sputum from 11/26 was positive for haemophilus influenza, continues to have leukocytosis with WBC of 16.8, hemoglobin 10.5., Basic metabolic profile is normal renal profile is normal electrolytes are normal, tested patient for influenza type a came back positive and in addition to this patient has haemophilus influenza in the sputum. Obviously this is a bacterial infection in the setting of influenza. Patient again remains on Tamiflu and he is also on Zosyn as per ID on the case. Chest x-ray continues to show evidence of bilateral infiltrates/interstitial infiltrates, doubt congestive heart failure. CT of the brain yesterday showed no definite enhancing masses to suggest brain metastasis. Patient did have persistent bilateral round low-density occipital lesions with rim calcifications, noted previously., Likely related to treated metastatic lesions. Patient was seen today on 11/28/2024, remains in the ICU, intubated and mechanically ventilated and he is now requiring norepinephrine at 0.03 mcg/kg/min he is on assist-control rate of 20 tidal volume 450 FiO2 50% and PEEP of 5 ABG is marginal with a pO2 of 75 pCO2 47 pH of 7.42 patient remains on Zosyn, chest x-ray continues show bilateral multifocal infiltrates. Patient is requiring propofol at 50 mcg/kg/min he is also on vital AF at 65/65. Today I will give the patient a trial of sedation interruption and assessment of mental status, and if his mental status is appropriate, may give the patient a trial of pressure support and CPAP. WBC is 13.5 hemoglobin is 10 electrolytes are basically unremarkable except for low potassium of 3.0. Bicarb is 33. Blood sugar is 134 Patient was seen today on 11/29/2024, remains in the ICU, intubated and mechanically ventilated. Patient is on assist-control rate of 20 tidal volume 450 FiO2 50% and PEEP of 5 ABG showed a pO2 of 84 pCO2 44 pH of 7.45. Patient is still requiring propofol at 60 mg/kg/min he is on vital AF at 65 cc/h yes terday that we have tried a weaning trial on this patient, and he was extremely agitated restless, and could not keep him off sedation for a short period of time. Hence patient had to be placed back on propofol, and today we will try to wean by utilizing Precedex to replace propofol, and will give the patient a trial of weaning if possible. However before extubation will need to address his weaning parameters and decide accordingly. In the meantime the patient remains on Zosyn, also receiving Tamiflu. Patient had haemophilus influenza in the setting of influenza A pneumonia. WBC count is 7.9 hemoglobin 9.7 ABG as noted above. Electrolytes and basic metabolic profile are normal chest x-ray continues show multiple multifocal infiltrates. Objective - Vital Signs Vital signs: Vital Signs Temp 98.5 F 11/29/24 08:00 Pulse 111 H 11/29/24 11:45 Resp 31 H 11/29/24 11:00 BP 115/84 11/29/24 09:00 Pulse Ox 98 11/29/24 11:00 FiO2 50 11/29/24 13:05 Intake & Output 11/28/24 11/29/24 11/29/24 18:59 06:59 18:59 Intake Total 9075.770 7330.689 1022.832 Output Total 715 610 275 Balance 3204.059 7028.689 747.832 Weight 71.7 kg 71.7 kg Intake: IV 1136 1014 312 .9NS pressure bag 36 39 12 0.9 Normal Saline 900 975 300 Piperacillin-Tazobactam 3 200 .375 gm In Sodium Chloride 0.9% 100 ml @ 25 mls/hr IVPB Q8HR [facility] Rx# :[id number] Intake, IV Titration 243.771 317.689 220.832 Amount Dexmedetomidine/0.9% NaCl 4.063 (Pmx) 400 mcg In Empty Bag 1 bag @ 0.2 MCG/KG/HR 3.585 mls/hr IV .Q24H [facility] Rx#:[id number] Norepinephrine 4 mg In 61.667 Sodium Chloride 0.9% 250 ml @ 0.03 MCG/KG/MIN 7. 784 mls/hr IV .Q24H [facility] Rx#:[id number] Piperacillin-Tazobactam 3 100 .375 gm In Sodium Chloride 0.9% 100 ml @ 25 mls/hr IVPB Q8HR [facility] Rx# :[id number] propofoL 1,000 mg In 182.104 317.689 116.769 Empty Bag 1 bag @ 15 MCG/ KG/MIN 5.895 mls/hr IV . [id number] [facility] Rx#:[id number] Oral 150 Tube Feeding 375 845 260 Other 90 230 Output: Urine 715 610 275 Other: Voiding Method Indwelling Catheter Indwelling Catheter # Bowel Movements 1 ABP, PAP, CO, CI - Last Documented Arterial Blood Pressure 121/70 - Exam Physical exam revealed 59-year-old white male intubated, mechanically ventilated. Sedated. Head: Atraumatic, normocephalic HEENT endotracheal tube and orogastric tube are intact. Examination is grossly unremarkable. Mucous membranes are moist. No oral lesions. Based on the neck findings patient must have had previous tracheostomy and there is an old tracheostomy scar noted Neck supple. Full range of motion. No adenopathy thyromegaly or neck vein distention. Cardiovascular examination distant S1-S2, no S3 gallop, no murmur.. Lungs: Scattered rhonchi noted bilaterally no wheezing Abdomen soft bowel sounds are heard. No masses or tenderness. Extremities superficial ulcerations, muscle wasting, good pulses bilaterally. Skin: Multiple superficial ulcerations noted in lower extremities, over the toes and patient does have right foot cool to touch, palpable pulses. Neurologic could not fully assess patient is sedated and mechanically ventilated. Psychiatric: Could not assess - Labs CBC & Chem 7: 11/29/24 05:00 11/29/24 05:00 Labs: Abnormal Lab Results - Last 24 Hours (Table) 11/28/24 11/29/24 11/29/24 Range/Units 17:23 00:08 04:23 RBC (4.30-5.90) m/uL Hgb (13.0-17.5) gm/dL Hct (39.0-53.0) % MCHC (31.0-37.0) g/dL RDW (11.5-15.5) % Lymphocytes # (1.0-4.8) k/uL ABG HCO3 31 H (21-25) mmol/L ABG Total CO2 32 H (19-24) mmol/L Hemoglobin 9.7 L (13.0-17.5) gm/dL Chloride (98-107) mmol/L Glucose (74-99) mg/dL POC Glucose (mg/dL) 154 H 114 H (70-110) mg/dL Calcium (8.4-10.2) mg/dL Total Protein (6.3-8.2) g/dL Albumin (3.5-5.0) g/dL 11/29/24 11/29/24 11/29/24 Range/Units 05:00 05:00 05:14 RBC 3.39 L (4.30-5.90) m/uL Hgb 9.7 L (13.0-17.5) gm/dL Hct 33.1 L (39.0-53.0) % MCHC 29.3 L (31.0-37.0) g/dL RDW 16.4 H (11.5-15.5) % Lymphocytes # 0.8 L (1.0-4.8) k/uL ABG HCO3 (21-25) mmol/L ABG Total CO2 (19-24) mmol/L Hemoglobin (13.0-17.5) gm/dL Chloride 108 H (98-107) mmol/L Glucose 123 H (74-99) mg/dL POC Glucose (mg/dL) 130 H (70-110) mg/dL Calcium 8.3 L (8.4-10.2) mg/dL Total Protein 4.7 L (6.3-8.2) g/dL Albumin 2.2 L (3.5-5.0) g/dL 11/29/24 11/29/24 Range/Units 11:59 12:32 RBC (4.30-5.90) m/uL Hgb (13.0-17.5) gm/dL Hct (39.0-53.0) % MCHC (31.0-37.0) g/dL RDW (11.5-15.5) % Lymphocytes # (1.0-4.8) k/uL ABG HCO3 31 H (21-25) mmol/L ABG Total CO2 32 H (19-24) mmol/L Hemoglobin 10.1 L (13.0-17.5) gm/dL Chloride (98-107) mmol/L Glucose (74-99) mg/dL POC Glucose (mg/dL) 151 H (70-110) mg/dL Calcium (8.4-10.2) mg/dL Total Protein (6.3-8.2) g/dL Albumin (3.5-5.0) g/dL Microbiology - Last 24 Hours (Table) 11/26/24 06:55 Blood Culture - Preliminary Blood 11/26/24 16:38 Gram Stain - Final Sputum Sputum Culture - Final Haemophilus influenzae Assessment and Plan Assessment: Impression: Acute on chronic hypoxic and hypercapnic respiratory failure, requiring intubation and mechanical ventilation shortly after he received Ativan for agitation on the medical floor. olecranon bursitis, treated Haemophilus influenza pneumonia, in the setting of acute influenza A infection/superimposed bacterial pneumonia Acute influenza A infection Atrial fibrillation with controlled ventricular response. The patient remains on a combination of amiodarone and metoprolol Metastatic small cell lung cancer, Chronic metabolic encephalopathy, multifactorial mostly with chronic hypercapnia Hypertension. Severe hypokalemia, improved Elevated troponins, possibly secondary to supply/demand mismatch. Altered mental status, most likely secondary to metabolic encephalopathy History of seizure disorder. Recommendation: Continue ventilatory support however I plan to give the patient sedation interruption, weaning parameters, and if patient does well may consider transitioning the patient to Precedex, and extubate while on Precedex instead of completely holding sedation. Continue nutritional support/enteral feeding GI and DVT prophylaxis Continue bronchodilators Continue antibiotics/Zosyn Continue Tamiflu Continue bronchodilators Continue systemic steroids Continue metoprolol and amiodarone Prognosis remains extremely poor Patient remains critically ill, even if extubated the patient will be high risk for reintubation. Critical care time is 34 minutes not including the time spent on procedures Time with Patient: Greater than 30
[2024-11-29] MEDS: HALOPERIDOL LACTATE 5 MG/ML 1 ML VIAL IVP PRN (17:24)
[2024-11-29 20:51] LABS: Glucose,Whole Blood 116 mg/dL (70-110)
[2024-11-29] MEDS: guaiFENesin SYRUP 100MG/5ML 200 MG/10 ML CUP OG-TUBE SCH (20:59)
[2024-11-30 04:44] LABS: Anisocytosis Slight; HCT 32.7 % (39.0-53.0); HGB 9.7 gm/dL (13.0-17.5); Hypochromasia Moderate; MCH 29.3 pg (25.0-35.0); MCHC 29.8 g/dL (31.0-37.0); MCV 98.4 fL (80.0-100.0); Macrocytosis Slight; Mean Platelet Volume 8.8; Platelet Count 175 k/uL (150-450); RBC 3.32 m/uL (4.30-5.90); RDW 16.4 % (11.5-15.5); WBC 6.9 k/uL (3.8-10.6)
[2024-11-30 04:55] LABS: African American GFR (CKD) >90 (>60 ml/min/1.73 sqM); Anion Gap 4 mmol/L; Blood Urea Nitrogen 18 mg/dL (9-20); Carbon Dioxide 30 mmol/L (22-30); Chloride 105 mmol/L (98-107); Glucose 85 mg/dL (74-99); Magnesium 1.9 mg/dL (1.6-2.3); Non-African American GFR(CKD) >90 (>60 ml/min/1.73 sqM); Potassium 3.8 mmol/L (3.5-5.1); Sodium 139 mmol/L (137-145)
[2024-11-30 05:13] LABS: Glucose,Whole Blood 83 mg/dL (70-110)
[2024-11-30] MEDS: POTASSIUM BICARBONATE/CIT AC 20 MEQ TABLET.EFF NG-TUBE SCH (05:27)
--- NOTE | 2024-11-30 07:39 | XR ---
EXAMINATION TYPE: XR chest 1V portable DATE OF EXAM: 11/30/2024 5:27 AM COMPARISON: Multiple radiographs, with the most recent on 11/29/2024 TECHNIQUE: XR chest 1V portable Portable AP radiograph of the chest. CLINICAL INDICATION:Male, 59 years old with history of recent extubation; FINDINGS: Lungs/Pleura: No pneumothorax or pleural effusion. Similar perihilar interstitial prominence. Heart/mediastinum: Cardiomediastinal silhouette is enlarged and stable. Atherosclerotic calcificatio ns are seen in the aorta. Musculoskeletal: No acute osseous pathology. Other findings: None Lines/Tubes: Stable right IJ central venous catheter with distal tip remaining in the right atrium. IMPRESSION: Similar perihilar interstitial prominence with cardiomegaly. Correlate for CHF exacerbation. Superimp osed infectious process is not excluded. [facility], , 11/30/2024 7:37 AM
[2024-11-30] MEDS: IPRATROPIUM-ALBUTEROL 3 ML NEB INHALATION SCH (07:46)
[2024-11-30] MEDS: MAGNESIUM SULFATE-D5W PMX 1 GM in DEXTROSE/WATER 1 100ML.BAG IVPB ONE (09:55)
[2024-11-30] MEDS: predniSONE 10 MG TAB PO SCH (10:15)
[2024-11-30 11:29] LABS: Glucose,Whole Blood 191 mg/dL (70-110)
--- NOTE | 2024-11-30 13:41 | P.PN ---
Subjective Progress Note Date: 11/30/24 Principal diagnosis: Acute hypoxic respiratory failure secondary to congestive heart failure and possible atypical pneumonia On 11/20/2024, the patient is clinically stable. Remains atrial fibrillation. Oxygenation is further improved and the patient is currently on 3 L of oxygen by nasal cannula and I suggested weaning the FiO2 further., Comfortable with no respiratory distress. The white cell count of 18.2, slightly improved compared to yesterday with a hemoglobin 15.7 and a platelet count of 289. Serum bicarb is at 17. Sodium with a catheter 0.6 and a sodium levels at 136. The patient remains on DuoNeb nebulized treatments [id number]. The patient remains on prednisone burst taper. Remains on vancomycin regarding left olecranon bursitis. In regards to his atrial fibrillation, he is on metoprolol 100 mg p.o. daily amiodarone 200 mg p.o. twice a day. No anticoagulants for now. Hi Leona show entirely on our 11/21/2024, the patient is being seen for a follow- up. Overnight, the patient was restless and confused and the patient was given a combination of Haldol and Ativan and furthermore, the patient was given Dilaudid this morning. He is a bit lethargic and sleepy at this point. The patient is resting comfortably in bed. He is currently on 4 L of oxygen by nasal cannula. Denies having any significant shortness of breath. Resting comfortably in bed. No focal neurological deficits. Blood work from today shows a white cell count of 18.2 and the patient has a hemoglobin of 12.7 and a platelet count of 307. Sodium is at 139, BUN 27 with a creatinine of 0.6. Remains on IV vancomycin. Rest of the medications are essentially unchanged. He is on a prednisone burst taper. He is also on a combination of metoprolol and amiodarone regarding atrial fibrillation. 11/22/2024, no significant respiratory distress. However, the patient remains extremely fatigued, lethargic and weak. Working with physical therapy. He was able to sit up in a chair. The patient remains on oxygen 3 L with a pulse ox of 98%. No significant respiratory distress. White cell count is at 17 with a hemoglobin 12.5 and a platelet count of 265. BUN 20 with a creatinine of 0.5. Medications are essentially unchanged. Remains on IV vancomycin. Remains a trial fibrillation. Rate is controlled. On 11/23/2024, the patient's remains confused, lethargic and weak. No significant respiratory distress. He has a sitter at the bedside and overnight the patient was given Haldol 1 mg, Ativan 2 mg and Dilaudid 1 mg. The patient will be sent for an MRI of the brain. In terms of his respiratory status, the patient is currently on 2 L of oxygen by nasal cannula with a pulse ox of 93%. Sodium is at 140, potassium 3.7, BUN 21 with a creatinine of 0.6 and a calcium level is at 8.4. Limited cough. No significant respiratory distress. Neurologic exam is nonfocal. Patient was seen today on 11/25/2024, remains on the third floor, patient remains lethargic and weak, has been receiving Ativan and sedation intermittently, the patient himself is frail, confused, he is not a great historian, on 4 L nasal cannula O2 sat is 93 to 95%. Last CT of the chest was on 11/18/2024, showed small left and minimal right pleural effusion with compressive atelectasis, pulmonary lynch patient remains marginal at best. Patient is currently off BiPAP, on nasal cannula at 2 L, has not had a chest x-ray for a number of days, I would likely recommend a follow-up chest x-ray in the next 24 hours. Patient remains lethargic, weak, and he seems to be confused. Patient was seen today on 11/26/2024, early this morning, patient was extremely anxious agitated and he received Ativan for his extreme anxiety and agitation on the medical floor, patient pulmonary status became worse, he basically hyperventilated and became more hypercapnic. Initially placed on BiPAP but did not seem to do well, patient had to be intubated. And he was admitted to the ICU. ABG prior to intubation showed a pO2 of 58 pCO2 88 pH of 7.21, patient was quite obtunded and lethargic during the time of this ABG, and shortly after postintubation blood gas was done showing a pO2 of 185 pCO2 58 pH of 7.34. Hence I placed him on FiO2 of 40% tidal volume 450 rate of 20 and PEEP of 5. Patient is still receiving antibiotics in the form of Zosyn and vancomycin. Hemodynamics lynch, patient is not requiring any pressors. Chest x-ray this morning showed slight improvement in his perihilar infiltrates. CBC continues to show leukocytosis with WBC count of 15.9, hemoglobin of 13.0 hematocrit 43.3. Basic metabolic profile is unremarkable bicarb is a bit elevated at 33 renal profile is normal. After evaluating the patient, I went ahead and placed a right IJ triple-lumen catheter. As the patient had poor venous access. Patient was seen today on 11/27/2024, patient remains in the ICU intubated and mechanically ventilated. Remains on assist-control rate of 20 tidal volume 450 FiO2 60% with a PEEP of 5, his ABG on 40% showed a pO2 of 59 pCO2 43 pH of 7.44 hence his FiO2 was increased initially to 60% and later 50%. PEEP was increased to 8. Patient remains on propofol at 40 mcg/kg/min norepinephrine at 0.05 mcg/kg/min he is on 0.9 normal saline at 75 mL/h and he is receiving vital AF at 30 cc/h. Patient remains on Zosyn, sputum from 11/26 was positive for haemophilus influenza, continues to have leukocytosis with WBC of 16.8, hemoglobin 10.5., Basic metabolic profile is normal renal profile is normal electrolytes are normal, tested patient for influenza type a came back positive and in addition to this patient has haemophilus influenza in the sputum. Obviously this is a bacterial infection in the setting of influenza. Patient again remains on Tamiflu and he is also on Zosyn as per ID on the case. Chest x-ray continues to show evidence of bilateral infiltrates/interstitial infiltrates, doubt congestive heart failure. CT of the brain yesterday showed no definite enhancing masses to suggest brain metastasis. Patient did have persistent bilateral round low-density occipital lesions with rim calcifications, noted previously., Likely related to treated metastatic lesions. Patient was seen today on 11/28/2024, remains in the ICU, intubated and mechanically ventilated and he is now requiring norepinephrine at 0.03 mcg/kg/min he is on assist-control rate of 20 tidal volume 450 FiO2 50% and PEEP of 5 ABG is marginal with a pO2 of 75 pCO2 47 pH of 7.42 patient remains on Zosyn, chest x-ray continues show bilateral multifocal infiltrates. Patient is requiring propofol at 50 mcg/kg/min he is also on vital AF at 65/65. Today I will give the patient a trial of sedation interruption and assessment of mental status, and if his mental status is appropriate, may give the patient a trial of pressure support and CPAP. WBC is 13.5 hemoglobin is 10 electrolytes are basically unremarkable except for low potassium of 3.0. Bicarb is 33. Blood sugar is 134 Patient was seen today on 11/29/2024, remains in the ICU, intubated and mechanically ventilated. Patient is on assist-control rate of 20 tidal volume 450 FiO2 50% and PEEP of 5 ABG showed a pO2 of 84 pCO2 44 pH of 7.45. Patient is still requiring propofol at 60 mg/kg/min he is on vital AF at 65 cc/h yes terday that we have tried a weaning trial on this patient, and he was extremely agitated restless, and could not keep him off sedation for a short period of time. Hence patient had to be placed back on propofol, and today we will try to wean by utilizing Precedex to replace propofol, and will give the patient a trial of weaning if possible. However before extubation will need to address his weaning parameters and decide accordingly. In the meantime the patient remains on Zosyn, also receiving Tamiflu. Patient had haemophilus influenza in the setting of influenza A pneumonia. WBC count is 7.9 hemoglobin 9.7 ABG as noted above. Electrolytes and basic metabolic profile are normal chest x-ray continues show multiple multifocal infiltrates. Patient was seen today on 11/30/2024, remains in the ICU, patient was extubated yesterday initially to BiPAP 12/6/50% now on nasal cannula patient is requiring Precedex, and intermittently has been requiring Haldol for extreme agitation, and yelling and cursing people around him. He is on Precedex at 0.6, he is also on Zosyn, and on Tamiflu. Today I recommended Haldol on a as needed basis, he will receive 4 mg IV push every 6 hours as needed. And he will remain on Precedex, chest x-ray continues show evidence of bilateral airspace disease. Patient will definitely need to remain in the ICU, no plans to get him transferred to the floor as he remains marginal at best. WBC count 6.9 hemoglobin 9.7 electrolytes are normal renal profile is normal Objective - Vital Signs Vital signs: Vital Signs Temp 98.7 F 11/30/24 09:00 Pulse 89 11/30/24 11:51 Resp 32 H 11/30/24 11:00 BP 123/92 11/30/24 11:00 Pulse Ox 97 11/30/24 11:00 FiO2 50 11/30/24 09:00 Intake & Output 11/29/24 11/30/24 11/30/24 18:59 06:59 18:59 Intake Total 7985.581 0942.125 1375 Output Total 855 975 975 Balance 161.498 3338.125 400 Weight 71.7 kg 74.9 kg Intake: IV 858 936 185 .9NS pressure bag 33 36 15 0.9 Normal Saline 825 900 170 Intake, IV Titration 290.117 295.125 200 Amount Dexmedetomidine/0.9% NaCl 66.504 195.125 (Pmx) 400 mcg In Empty Bag 1 bag @ 0.2 MCG/KG/HR 3.585 mls/hr IV .Q24H [facility] Rx#:[id number] Magnesium Sulfate-D5w Pmx 100 1 gm In Dextrose/Water 1 100ml.bag @ 100 mls/hr IVPB ONCE ONE Rx#: [id number] Piperacillin-Tazobactam 3 100 100 100 .375 gm In Sodium Chloride 0.9% 100 ml @ 25 mls/hr IVPB Q8HR [facility] Rx# :[id number] propofoL 1,000 mg In 123.613 Empty Bag 1 bag @ 15 MCG/ KG/MIN 5.895 mls/hr IV . [id number] [facility] Rx#:[id number] Oral 1000 990 Tube Feeding 325 100 Other 260 Output: Urine 855 975 975 Other: Voiding Method Indwelling Catheter Indwelling Catheter # Bowel Movements 1 ABP, PAP, CO, CI - Last Documented Arterial Blood Pressure 131/85 - Exam Physical exam revealed 59-year-old white male, intermittently on BiPAP. Head: Atraumatic, normocephalic HEENT Examination is grossly unremarkable. Mucous membranes are moist. No oral lesions. Old tracheostomy scar is noted Neck supple. Full range of motion. No adenopathy thyromegaly or neck vein distention. Cardiovascular examination distant S1-S2, no S3 gallop, no murmur.. Lungs: Crackles at the bases with rhonchi on forced expiratory maneuver Abdomen soft bowel sounds are heard. No masses or tenderness. Extremities superficial ulcerations, muscle wasting, good pulses bilaterally. Skin: Multiple superficial ulcerations noted in lower extremities, over the toes and patient does have right foot cool to touch, palpable pulses. Neurologic confused, restless, agitated. Seems to have very poor judgment. And insight. Psychiatric: Anxious mood, poor insight and poor mental status. - Labs CBC & Chem 7: 11/30/24 04:26 11/30/24 04:26 Labs: Abnormal Lab Results - Last 24 Hours (Table) 11/29/24 11/30/24 11/30/24 Range/Units 20:50 04:26 04:26 RBC 3.32 L (4.30-5.90) m/uL Hgb 9.7 L (13.0-17.5) gm/dL Hct 32.7 L (39.0-53.0) % MCHC 29.8 L (31.0-37.0) g/dL RDW 16.4 H (11.5-15.5) % Creatinine 0.62 L (0.66-1.25) mg/dL POC Glucose (mg/dL) 116 H (70-110) mg/dL Calcium 8.0 L (8.4-10.2) mg/dL 11/30/24 Range/Units 11:27 RBC (4.30-5.90) m/uL Hgb (13.0-17.5) gm/dL Hct (39.0-53.0) % MCHC (31.0-37.0) g/dL RDW (11.5-15.5) % Creatinine (0.66-1.25) mg/dL POC Glucose (mg/dL) 191 H (70-110) mg/dL Calcium (8.4-10.2) mg/dL Microbiology - Last 24 Hours (Table) 11/26/24 06:55 Blood Culture - Preliminary Blood Assessment and Plan Assessment: Impression: Acute on chronic hypoxic and hypercapnic respiratory failure, requiring intubation and mechanical ventilation shortly after he received Ativan for agitation on the medical floor. Extubated on 11/29/2024 however remains marginal at best. Requiring Precedex for extreme agitation. Haemophilus influenza pneumonia, in the setting of acute influenza A infection/superimposed bacterial pneumonia Acute influenza A infection Atrial fibrillation with controlled ventricular response. The patient remains on a combination of amiodarone and metoprolol Metastatic small cell lung cancer, Chronic metabolic encephalopathy, multifactorial mostly with chronic hypercapnia Hypertension. Severe hypokalemia, improved Elevated troponins, possibly secondary to supply/demand mismatch. Altered mental status, most likely secondary to metabolic encephalopathy History of seizure disorder. Recommendation: Continue to monitor in the ICU Continue Precedex and Haldol as needed GI and DVT prophylaxis Continue bronchodilators Continue antibiotics/Zosyn Continue Tamiflu Continue systemic steroids, will cut down on the dosing of steroids because of his extreme agitation Continue metoprolol and amiodarone Prognosis remains extremely poor, and quite guarded. Remains quite ill, and not ready to leave the ICU Critical care time is 33 minutes Time with Patient: Greater than 30
--- NOTE | 2024-11-30 14:36 | P.PN ---
Subjective Progress Note Date: 11/29/24 Principal diagnosis: Reason for follow-up is left elbow septic olecranon bursitis Patient is a 59-year-old male with a past medical history significant for hypertension seizure disorder atrial fibrillation he did have a metastatic lung cancer has been brought to the hospital for worsening swelling to the left elbow with a culture positive for MRSA concerning for septic olecranon bursitis. On today's evaluation that is 11/29/2024 patient has been extubated around noon patient is currently on a nasal cannula oxygen seem to be lethargic not a very good historian no vomiting diarrhea and the changes reported by the nursing staff he did have a low refill 100.2 at 4 AM the patient is afebrile since then Patient white count is normalized to 7.9 creatinine 0.69 sputum culture growing Haemophilus influenzae Objective - Vital Signs Vital signs: Vital Signs Temp 98.9 F 11/29/24 16:00 Pulse 111 11/29/24 16:00 Resp 23 11/29/24 16:00 BP 143/81 11/29/24 16:00 Pulse Ox 96 11/29/24 16:00 FiO2 4L 11/29/24 16:00 - Exam GENERAL DESCRIPTION: Middle-age male intubated on the vent RESPIRATORY SYSTEM: Unlabored breathing , decreased breath sounds at bases HEART: S1 S2 regular rate and rhythm , ABDOMEN: Soft , no tenderness EXTREMITIES: Left elbow some swelling no redness or drainage - Labs CBC & Chem 7: 11/30/24 04:26 11/30/24 04:26 Labs: Abnormal Lab Results - Last 24 Hours (Table) 11/29/24 11/29/24 11/30/24 Range/Units 12:32 20:50 04:26 RBC 3.32 L (4.30-5.90) m/uL Hgb 9.7 L (13.0-17.5) gm/dL Hct 32.7 L (39.0-53.0) % MCHC 29.8 L (31.0-37.0) g/dL RDW 16.4 H (11.5-15.5) % ABG HCO3 31 H (21-25) mmol/L ABG Total CO2 32 H (19-24) mmol/L Hemoglobin 10.1 L (13.0-17.5) gm/dL Creatinine (0.66-1.25) mg/dL POC Glucose (mg/dL) 116 H (70-110) mg/dL Calcium (8.4-10.2) mg/dL 11/30/24 11/30/24 Range/Units 04:26 11:27 RBC (4.30-5.90) m/uL Hgb (13.0-17.5) gm/dL Hct (39.0-53.0) % MCHC (31.0-37.0) g/dL RDW (11.5-15.5) % ABG HCO3 (21-25) mmol/L ABG Total CO2 (19-24) mmol/L Hemoglobin (13.0-17.5) gm/dL Creatinine 0.62 L (0.66-1.25) mg/dL POC Glucose (mg/dL) 191 H (70-110) mg/dL Calcium 8.0 L (8.4-10.2) mg/dL Microbiology - Last 24 Hours (Table) 11/26/24 06:55 Blood Culture - Preliminary Blood Assessment and Plan (1) Septic olecranon bursitis of left elbow Current Visit: Yes Status: Acute Code(s): M71.122 - OTHER INFECTIVE BURSITIS, LEFT ELBOW SNOMED Code(s): 3882971072923399 (2) Allergy to cephalosporin Current Visit: No Status: Acute Code(s): Z88.1 - ALLERGY STATUS TO OTHER ANTIBIOTIC AGENTS SNOMED Code(s): 907287427 (3) MRSA (methicillin resistant Staphylococcus aureus) infection Current Visit: Yes Status: Acute Code(s): A49.02 - METHICILLIN RESIS STAPH INFECTION, UNSP SITE SNOMED Code(s): 838451133 (4) Influenza A Current Visit: Yes Status: Acute Code(s): J10.1 - FLU DUE TO OTH IDENT INFLUENZA VIRUS W OTH RESP MANIFEST SNOMED Code(s): 493473309 (5) Pneumonia Current Visit: No Status: Acute Code(s): J18.9 - PNEUMONIA, UNSPECIFIED ORGANISM SNOMED Code(s): 737296931 Plan: 1patient being admitted to the hospital for left elbow pain swelling redness he did have a wound with a culture positive for MRSA in the outpatient setting now with concern for left elbow septic olecranon bursitis for the patient received adequate IV vancomycin. 2patient with respiratory failure requiring intubation concerning for pneumonia blood cultures are currently pending sputum is growing Haemophilus influenzae should be covered with Zosyn 3-patient with influenza A to continue with Tamiflu 75 mg twice a day for 5 days Dictation was produced using [employer] dictation software. please excuse any grammatical, word or spelling errors.
--- NOTE | 2024-11-30 14:37 | P.PN ---
Subjective Progress Note Date: 11/30/24 Principal diagnosis: Reason for follow-up is left elbow septic olecranon bursitis Patient is a 59-year-old male with a past medical history significant for hypertension seizure disorder atrial fibrillation he did have a metastatic lung cancer has been brought to the hospital for worsening swelling to the left elbow with a culture positive for MRSA concerning for septic olecranon bursitis. On today's evaluation that is 11/30/2024 patient is afebrile today, the patient is currently on a BiPAP he seem to be more awake but not a very good historian no vomiting has been reported he did have some diarrhea as reported by the nursing staff. The patient white count is 6.9 creatinine 0.62 Objective - Vital Signs Vital signs: Vital Signs Temp 98.7 F 11/30/24 09:00 Pulse 89 11/30/24 11:51 Resp 32 H 11/30/24 11:00 BP 123/92 11/30/24 11:00 Pulse Ox 97 11/30/24 11:00 FiO2 50 11/30/24 09:00 Intake & Output 11/29/24 11/30/24 11/30/24 18:59 06:59 18:59 Intake Total 9861.188 3137.125 1375 Output Total 855 975 975 Balance 117.297 4540.125 400 Weight 71.7 kg 74.9 kg Intake: IV 858 936 185 .9NS pressure bag 33 36 15 0.9 Normal Saline 825 900 170 Intake, IV Titration 290.117 295.125 200 Amount Dexmedetomidine/0.9% NaCl 66.504 195.125 (Pmx) 400 mcg In Empty Bag 1 bag @ 0.2 MCG/KG/HR 3.585 mls/hr IV .Q24H [facility] Rx#:[id number] Magnesium Sulfate-D5w Pmx 100 1 gm In Dextrose/Water 1 100ml.bag @ 100 mls/hr IVPB ONCE ONE Rx#: [id number] Piperacillin-Tazobactam 3 100 100 100 .375 gm In Sodium Chloride 0.9% 100 ml @ 25 mls/hr IVPB Q8HR [facility] Rx# :[id number] propofoL 1,000 mg In 123.613 Empty Bag 1 bag @ 15 MCG/ KG/MIN 5.895 mls/hr IV . [id number] [facility] Rx#:[id number] Oral 1000 990 Tube Feeding 325 100 Other 260 Output: Urine 855 975 975 Other: Voiding Method Indwelling Catheter Indwelling Catheter # Bowel Movements 1 ABP, PAP, CO, CI - Last Documented Arterial Blood Pressure 131/85 - Exam GENERAL DESCRIPTION: Middle-age male lying in bed in no distress RESPIRATORY SYSTEM: Unlabored breathing , decreased breath sounds at bases HEART: S1 S2 regular rate and rhythm , ABDOMEN: Soft , no tenderness EXTREMITIES: Left elbow some swelling no redness or drainage - Labs CBC & Chem 7: 11/30/24 04:26 11/30/24 04:26 Labs: Abnormal Lab Results - Last 24 Hours (Table) 11/29/24 11/29/24 11/30/24 Range/Units 12:32 20:50 04:26 RBC 3.32 L (4.30-5.90) m/uL Hgb 9.7 L (13.0-17.5) gm/dL Hct 32.7 L (39.0-53.0) % MCHC 29.8 L (31.0-37.0) g/dL RDW 16.4 H (11.5-15.5) % ABG HCO3 31 H (21-25) mmol/L ABG Total CO2 32 H (19-24) mmol/L Hemoglobin 10.1 L (13.0-17.5) gm/dL Creatinine (0.66-1.25) mg/dL POC Glucose (mg/dL) 116 H (70-110) mg/dL Calcium (8.4-10.2) mg/dL 11/30/24 11/30/24 Range/Units 04:26 11:27 RBC (4.30-5.90) m/uL Hgb (13.0-17.5) gm/dL Hct (39.0-53.0) % MCHC (31.0-37.0) g/dL RDW (11.5-15.5) % ABG HCO3 (21-25) mmol/L ABG Total CO2 (19-24) mmol/L Hemoglobin (13.0-17.5) gm/dL Creatinine 0.62 L (0.66-1.25) mg/dL POC Glucose (mg/dL) 191 H (70-110) mg/dL Calcium 8.0 L (8.4-10.2) mg/dL Microbiology - Last 24 Hours (Table) 11/26/24 06:55 Blood Culture - Preliminary Blood Assessment and Plan (1) Septic olecranon bursitis of left elbow Current Visit: Yes Status: Acute Code(s): M71.122 - OTHER INFECTIVE BURSITIS, LEFT ELBOW SNOMED Code(s): 8161636119394181 (2) Allergy to cephalosporin Current Visit: No Status: Acute Code(s): Z88.1 - ALLERGY STATUS TO OTHER ANTIBIOTIC AGENTS SNOMED Code(s): 539766850 (3) MRSA (methicillin resistant Staphylococcus aureus) infection Current Visit: Yes Status: Acute Code(s): A49.02 - METHICILLIN RESIS STAPH INFECTION, UNSP SITE SNOMED Code(s): 723995877 (4) Influenza A Current Visit: Yes Status: Acute Code(s): J10.1 - FLU DUE TO OTH IDENT INFLUENZA VIRUS W OTH RESP MANIFEST SNOMED Code(s): 593358291 (5) Pneumonia Current Visit: No Status: Acute Code(s): J18.9 - PNEUMONIA, UNSPECIFIED ORGANISM SNOMED Code(s): 044862607 Plan: 1patient being admitted to the hospital for left elbow pain swelling redness he did have a wound with a culture positive for MRSA in the outpatient setting now with concern for left elbow septic olecranon bursitis for the patient received adequate IV vancomycin. 2patient with influenza A to continue with Tamiflu 75 mg twice a day for 5 days 3patient with pneumonia blood cultures are so far negative, sputum is growing Haemophilus influenzae with the patient is currently being covered with Zosyn and monitor clinical course closely Dictation was produced using [employer] software. please excuse any grammatical, word or spelling errors. Time with Patient: Less than 30
[2024-11-30] MEDS: Buprenorphine Hcl [Subutex] 8 MG Tab.Subl PO SCH ×2 (15:44→19:56)
[2024-11-30] MEDS: HALOPERIDOL LACTATE 5 MG/ML 1 ML VIAL IVP PRN (15:44)
[2024-11-30 17:32] LABS: Glucose,Whole Blood 209 mg/dL (70-110)
[2024-11-30 20:05] LABS: Glucose,Whole Blood 250 mg/dL (70-110)
[2024-11-30] MEDS: OSELTAMIVIR 75 MG CAP PO SCH (20:59)
[2024-11-30 23:27] LABS: Glucose,Whole Blood 144 mg/dL (70-110)
[2024-12-01 03:56] LABS: African American GFR (CKD) >90 (>60 ml/min/1.73 sqM); Anion Gap 4 mmol/L; Blood Urea Nitrogen 19 mg/dL (9-20); Calcium 7.8 mg/dL (8.4-10.2); Carbon Dioxide 28 mmol/L (22-30); Chloride 104 mmol/L (98-107); Glucose 127 mg/dL (74-99); Non-African American GFR(CKD) >90 (>60 ml/min/1.73 sqM); Potassium 3.6 mmol/L (3.5-5.1); Sodium 136 mmol/L (137-145)
[2024-12-01 05:40] LABS: Anisocytosis Slight; HCT 33.5 % (39.0-53.0); Hypochromasia Marked; MCH 29.3 pg (25.0-35.0); MCHC 29.8 g/dL (31.0-37.0); MCV 98.2 fL (80.0-100.0); Macrocytosis Slight; Mean Platelet Volume 7.9; Platelet Count 171 k/uL (150-450); RBC 3.41 m/uL (4.30-5.90); RDW 16.1 % (11.5-15.5); WBC 10.2 k/uL (3.8-10.6)
[2024-12-01 06:26] LABS: Glucose,Whole Blood 110 mg/dL (70-110)
[2024-12-01] MEDS: PANTOPRAZOLE 40 MG TABLET PO SCH (06:29)
[2024-12-01] MEDS: POTASSIUM CHLORIDE ER 20 MEQ TAB.ER PO SCH (06:29)
--- NOTE | 2024-12-01 07:28 | XR ---
EXAMINATION TYPE: XR chest 1V portable DATE OF EXAM: 12/01/2024 3:34 AM COMPARISON: Multiple radiographs, with the most recent on 11/30/2024. TECHNIQUE: XR chest 1V portable Portable AP radiograph of the chest. CLINICAL INDICATION:Male, 59 years old with history of distress; FINDINGS: Lungs/Pleura: No pneumothorax or pleural effusion. Similar perihilar interstitial prominence. Similar bibasilar patchy consolidative opacities. Heart/mediastinum: Cardiomediastinal silhouette is enlarged and stable. Atherosclerotic calcificatio ns are seen in the aorta. Musculoskeletal: No acute osseous pathology. Other findings: None Lines/Tubes: Stable right IJ central venous catheter with distal tip remaining in the right atrium. IMPRESSION: Similar bibasilar patchy airspace opacities with interstitial prominence and cardiomegaly. Etiologies include multifocal pneumonia/atelectasis and/or CHF exacerbation. [facility], , 12/01/2024 7:26 AM
[2024-12-01] MEDS: METOPROLOL SUCCINATE (ER) 100 MG TAB.ER.24H PO SCH (08:40)
[2024-12-01] MEDS: predniSONE 20 MG TAB PO SCH (08:40)
[2024-12-01 11:07] LABS: Glucose,Whole Blood 121 mg/dL (70-110)
--- NOTE | 2024-12-01 13:15 | P.PN ---
Subjective Progress Note Date: 12/01/24 Principal diagnosis: Acute hypoxic respiratory failure secondary to congestive heart failure and possible atypical pneumonia On 11/20/2024, the patient is clinically stable. Remains atrial fibrillation. Oxygenation is further improved and the patient is currently on 3 L of oxygen by nasal cannula and I suggested weaning the FiO2 further., Comfortable with no respiratory distress. The white cell count of 18.2, slightly improved compared to yesterday with a hemoglobin 15.7 and a platelet count of 289. Serum bicarb is at 17. Sodium with a catheter 0.6 and a sodium levels at 136. The patient remains on DuoNeb nebulized treatments [id number]. The patient remains on prednisone burst taper. Remains on vancomycin regarding left olecranon bursitis. In regards to his atrial fibrillation, he is on metoprolol 100 mg p.o. daily amiodarone 200 mg p.o. twice a day. No anticoagulants for now. Hi Leona show entirely on our 11/21/2024, the patient is being seen for a follow- up. Overnight, the patient was restless and confused and the patient was given a combination of Haldol and Ativan and furthermore, the patient was given Dilaudid this morning. He is a bit lethargic and sleepy at this point. The patient is resting comfortably in bed. He is currently on 4 L of oxygen by nasal cannula. Denies having any significant shortness of breath. Resting comfortably in bed. No focal neurological deficits. Blood work from today shows a white cell count of 18.2 and the patient has a hemoglobin of 12.7 and a platelet count of 307. Sodium is at 139, BUN 27 with a creatinine of 0.6. Remains on IV vancomycin. Rest of the medications are essentially unchanged. He is on a prednisone burst taper. He is also on a combination of metoprolol and amiodarone regarding atrial fibrillation. 11/22/2024, no significant respiratory distress. However, the patient remains extremely fatigued, lethargic and weak. Working with physical therapy. He was able to sit up in a chair. The patient remains on oxygen 3 L with a pulse ox of 98%. No significant respiratory distress. White cell count is at 17 with a hemoglobin 12.5 and a platelet count of 265. BUN 20 with a creatinine of 0.5. Medications are essentially unchanged. Remains on IV vancomycin. Remains a trial fibrillation. Rate is controlled. On 11/23/2024, the patient's remains confused, lethargic and weak. No significant respiratory distress. He has a sitter at the bedside and overnight the patient was given Haldol 1 mg, Ativan 2 mg and Dilaudid 1 mg. The patient will be sent for an MRI of the brain. In terms of his respiratory status, the patient is currently on 2 L of oxygen by nasal cannula with a pulse ox of 93%. Sodium is at 140, potassium 3.7, BUN 21 with a creatinine of 0.6 and a calcium level is at 8.4. Limited cough. No significant respiratory distress. Neurologic exam is nonfocal. Patient was seen today on 11/25/2024, remains on the third floor, patient remains lethargic and weak, has been receiving Ativan and sedation intermittently, the patient himself is frail, confused, he is not a great historian, on 4 L nasal cannula O2 sat is 93 to 95%. Last CT of the chest was on 11/18/2024, showed small left and minimal right pleural effusion with compressive atelectasis, pulmonary lynch patient remains marginal at best. Patient is currently off BiPAP, on nasal cannula at 2 L, has not had a chest x-ray for a number of days, I would likely recommend a follow-up chest x-ray in the next 24 hours. Patient remains lethargic, weak, and he seems to be confused. Patient was seen today on 11/26/2024, early this morning, patient was extremely anxious agitated and he received Ativan for his extreme anxiety and agitation on the medical floor, patient pulmonary status became worse, he basically hyperventilated and became more hypercapnic. Initially placed on BiPAP but did not seem to do well, patient had to be intubated. And he was admitted to the ICU. ABG prior to intubation showed a pO2 of 58 pCO2 88 pH of 7.21, patient was quite obtunded and lethargic during the time of this ABG, and shortly after postintubation blood gas was done showing a pO2 of 185 pCO2 58 pH of 7.34. Hence I placed him on FiO2 of 40% tidal volume 450 rate of 20 and PEEP of 5. Patient is still receiving antibiotics in the form of Zosyn and vancomycin. Hemodynamics lynch, patient is not requiring any pressors. Chest x-ray this morning showed slight improvement in his perihilar infiltrates. CBC continues to show leukocytosis with WBC count of 15.9, hemoglobin of 13.0 hematocrit 43.3. Basic metabolic profile is unremarkable bicarb is a bit elevated at 33 renal profile is normal. After evaluating the patient, I went ahead and placed a right IJ triple-lumen catheter. As the patient had poor venous access. Patient was seen today on 11/27/2024, patient remains in the ICU intubated and mechanically ventilated. Remains on assist-control rate of 20 tidal volume 450 FiO2 60% with a PEEP of 5, his ABG on 40% showed a pO2 of 59 pCO2 43 pH of 7.44 hence his FiO2 was increased initially to 60% and later 50%. PEEP was increased to 8. Patient remains on propofol at 40 mcg/kg/min norepinephrine at 0.05 mcg/kg/min he is on 0.9 normal saline at 75 mL/h and he is receiving vital AF at 30 cc/h. Patient remains on Zosyn, sputum from 11/26 was positive for haemophilus influenza, continues to have leukocytosis with WBC of 16.8, hemoglobin 10.5., Basic metabolic profile is normal renal profile is normal electrolytes are normal, tested patient for influenza type a came back positive and in addition to this patient has haemophilus influenza in the sputum. Obviously this is a bacterial infection in the setting of influenza. Patient again remains on Tamiflu and he is also on Zosyn as per ID on the case. Chest x-ray continues to show evidence of bilateral infiltrates/interstitial infiltrates, doubt congestive heart failure. CT of the brain yesterday showed no definite enhancing masses to suggest brain metastasis. Patient did have persistent bilateral round low-density occipital lesions with rim calcifications, noted previously., Likely related to treated metastatic lesions. Patient was seen today on 11/28/2024, remains in the ICU, intubated and mechanically ventilated and he is now requiring norepinephrine at 0.03 mcg/kg/min he is on assist-control rate of 20 tidal volume 450 FiO2 50% and PEEP of 5 ABG is marginal with a pO2 of 75 pCO2 47 pH of 7.42 patient remains on Zosyn, chest x-ray continues show bilateral multifocal infiltrates. Patient is requiring propofol at 50 mcg/kg/min he is also on vital AF at 65/65. Today I will give the patient a trial of sedation interruption and assessment of mental status, and if his mental status is appropriate, may give the patient a trial of pressure support and CPAP. WBC is 13.5 hemoglobin is 10 electrolytes are basically unremarkable except for low potassium of 3.0. Bicarb is 33. Blood sugar is 134 Patient was seen today on 11/29/2024, remains in the ICU, intubated and mechanically ventilated. Patient is on assist-control rate of 20 tidal volume 450 FiO2 50% and PEEP of 5 ABG showed a pO2 of 84 pCO2 44 pH of 7.45. Patient is still requiring propofol at 60 mg/kg/min he is on vital AF at 65 cc/h yes terday that we have tried a weaning trial on this patient, and he was extremely agitated restless, and could not keep him off sedation for a short period of time. Hence patient had to be placed back on propofol, and today we will try to wean by utilizing Precedex to replace propofol, and will give the patient a trial of weaning if possible. However before extubation will need to address his weaning parameters and decide accordingly. In the meantime the patient remains on Zosyn, also receiving Tamiflu. Patient had haemophilus influenza in the setting of influenza A pneumonia. WBC count is 7.9 hemoglobin 9.7 ABG as noted above. Electrolytes and basic metabolic profile are normal chest x-ray continues show multiple multifocal infiltrates. Patient was seen today on 11/30/2024, remains in the ICU, patient was extubated yesterday initially to BiPAP 12/6/50% now on nasal cannula patient is requiring Precedex, and intermittently has been requiring Haldol for extreme agitation, and yelling and cursing people around him. He is on Precedex at 0.6, he is also on Zosyn, and on Tamiflu. Today I recommended Haldol on a as needed basis, he will receive 4 mg IV push every 6 hours as needed. And he will remain on Precedex, chest x-ray continues show evidence of bilateral airspace disease. Patient will definitely need to remain in the ICU, no plans to get him transferred to the floor as he remains marginal at best. WBC count 6.9 hemoglobin 9.7 electrolytes are normal renal profile is normal Patient was seen today on 12/01/2024, patient remains in the ICU, has been tolerating the extubation well, intermittently on BiPAP 12/6/50% presently on nasal cannula, he is sitting in a chair, does not seem to be in distress. And his mentation seems to be much improved. He is not as restless and agitated agitated seems to be better since he was placed back on his Subutex. Not requiring Haldol anymore. And not requiring any Precedex. Labs reviewed today he had relatively normal CBC WBC count is 10.2 hemoglobin is 10.0 electrolytes are normal renal profile is normal blood sugar is 121 chest x-ray continues show bibasilar patchy airspace disease opacities and interstitial prominence Objective - Vital Signs Vital signs: Vital Signs Temp 97.4 F L 12/01/24 09:00 Pulse 100 12/01/24 10:00 Resp 25 H 12/01/24 10:00 BP 120/89 12/01/24 10:00 Pulse Ox 91 L 12/01/24 10:00 FiO2 50 12/01/24 04:28 Intake & Output 11/30/24 12/01/24 12/01/24 18:59 06:59 18:59 Intake Total 2328.365 2076.120 360 Output Total 1575 950 200 Balance 505.816 8465.120 160 Weight 76.5 kg Intake: IV 226 123 20 .9NS pressure bag 36 3 0.9 Normal Saline 190 120 20 Intake, IV Titration 372.365 263.120 100 Amount Dexmedetomidine/0.9% NaCl 72.365 163.120 (Pmx) 400 mcg In Empty Bag 1 bag @ 0.2 MCG/KG/HR 3.585 mls/hr IV .Q24H [facility] Rx#:[id number] Magnesium Sulfate-D5w Pmx 100 1 gm In Dextrose/Water 1 100ml.bag @ 100 mls/hr IVPB ONCE ONE Rx#: [id number] Piperacillin-Tazobactam 3 200 100 100 .375 gm In Sodium Chloride 0.9% 100 ml @ 25 mls/hr IVPB Q8HR [facility] Rx# :[id number] Oral 1730 1490 240 Tube Feeding 200 Output: Urine 1575 950 200 Other: Voiding Method Indwelling Catheter Indwelling Catheter # Voids 1 # Bowel Movements 1 ABP, PAP, CO, CI - Last Documented Arterial Blood Pressure 131/85 - Exam Physical exam revealed 59-year-old white male, on nasal cannula, at times on BiPAP Head: Atraumatic, normocephalic HEENT Examination is grossly unremarkable. Mucous membranes are moist. No oral lesions. Old tracheostomy scar is noted Neck supple. Full range of motion. No adenopathy thyromegaly or neck vein distention. Cardiovascular examination distant S1-S2, no S3 gallop, no murmur.. Lungs: Crackles at the bases with rhonchi on forced expiratory maneuver Abdomen soft bowel sounds are heard. No masses or tenderness. Extremities superficial ulcerations, muscle wasting, good pulses bilaterally. Skin: Multiple superficial ulcerations noted in lower extremities, over the toes and patient does have right foot cool to touch, palpable pulses. Neurologic seems to be more alert and oriented today, no gross focal deficit. Psychiatric: Normal mood affect and normal mental status today. - Labs CBC & Chem 7: 12/01/24 05:17 12/01/24 03:19 Labs: Abnormal Lab Results - Last 24 Hours (Table) 11/30/24 11/30/24 11/30/24 Range/Units 17:30 20:04 23:26 RBC (4.30-5.90) m/uL Hgb (13.0-17.5) gm/dL Hct (39.0-53.0) % MCHC (31.0-37.0) g/dL RDW (11.5-15.5) % Sodium (137-145) mmol/L Creatinine (0.66-1.25) mg/dL Glucose (74-99) mg/dL POC Glucose (mg/dL) 209 H 250 H 144 H (70-110) mg/dL Calcium (8.4-10.2) mg/dL 12/01/24 12/01/24 12/01/24 Range/Units 03:19 05:17 11:05 RBC 3.41 L (4.30-5.90) m/uL Hgb 10.0 L (13.0-17.5) gm/dL Hct 33.5 L (39.0-53.0) % MCHC 29.8 L (31.0-37.0) g/dL RDW 16.1 H (11.5-15.5) % Sodium 136 L (137-145) mmol/L Creatinine 0.60 L (0.66-1.25) mg/dL Glucose 127 H (74-99) mg/dL POC Glucose (mg/dL) 121 H (70-110) mg/dL Calcium 7.8 L (8.4-10.2) mg/dL Microbiology - Last 24 Hours (Table) 11/26/24 06:55 Blood Culture - Final Blood Assessment and Plan Assessment: Impression: Acute on chronic hypoxic and hypercapnic respiratory failure, requiring intubation and mechanical ventilation shortly after he received Ativan for agitation on the medical floor. Extubated on 11/29/2024 remains marginal and will continue to monitor in the ICU. Haemophilus influenza pneumonia, in the setting of acute influenza A infection/superimposed bacterial pneumonia Acute influenza A infection Atrial fibrillation with controlled ventricular response. The patient remains on a combination of amiodarone and metoprolol Metastatic small cell lung cancer, Chronic metabolic encephalopathy, multifactorial mostly with chronic hypercapnia Hypertension. Severe hypokalemia, improved Elevated troponins, possibly secondary to supply/demand mismatch. Altered mental status, most likely secondary to metabolic encephalopathy History of seizure disorder. Recommendation: Continue to monitor in the ICU Off Precedex and off Haldol Placed back on Subutex his usual medication. GI and DVT prophylaxis Continue bronchodilators Continue antibiotics/Zosyn Continue Tamiflu Continue systemic steroids, dose has been cut down and will continue to cut down further Continue metoprolol and amiodarone Prognosis remains guarded Remains relatively ill and I will keep in the ICU for another 24 hours Time with Patient: Less than 30
--- NOTE | 2024-12-01 14:18 | P.PN ---
Subjective Progress Note Date: 12/01/24 Principal diagnosis: Reason for follow-up is left elbow septic olecranon bursitis Patient is a 59-year-old male with a past medical history significant for hypertension seizure disorder atrial fibrillation he did have a metastatic lung cancer has been brought to the hospital for worsening swelling to the left elbow with a culture positive for MRSA concerning for septic olecranon bursitis. On today's evaluation that is 12/01/2024, Patient is afebrile patient is curr ently on 6 L nasal oxygen and breathing more comfortably denies any chest pain or worsening cough no nausea no vomiting or pain to the left elbow area. Patient white count is 10.2 creatinine 0.60 sputum with haemophilus Objective - Vital Signs Vital signs: Vital Signs Temp 98.1 F 12/01/24 12:00 Pulse 114 H 12/01/24 13:00 Resp 10 L 12/01/24 13:00 BP 149/102 12/01/24 13:00 Pulse Ox 91 L 12/01/24 13:00 FiO2 50 12/01/24 04:28 Intake & Output 11/30/24 12/01/24 12/01/24 18:59 06:59 18:59 Intake Total 2328.365 2076.120 610 Output Total 1575 950 550 Balance 590.109 1186.120 60 Weight 76.5 kg Intake: IV 226 123 30 .9NS pressure bag 36 3 0.9 Normal Saline 190 120 30 Intake, IV Titration 372.365 263.120 100 Amount Dexmedetomidine/0.9% NaCl 72.365 163.120 (Pmx) 400 mcg In Empty Bag 1 bag @ 0.2 MCG/KG/HR 3.585 mls/hr IV .Q24H [facility] Rx#:[id number] Magnesium Sulfate-D5w Pmx 100 1 gm In Dextrose/Water 1 100ml.bag @ 100 mls/hr IVPB ONCE ONE Rx#: [id number] Piperacillin-Tazobactam 3 200 100 100 .375 gm In Sodium Chloride 0.9% 100 ml @ 25 mls/hr IVPB Q8HR [facility] Rx# :[id number] Oral 1730 1490 480 Tube Feeding 200 Output: Urine 1575 950 550 Other: Voiding Method Indwelling Catheter Indwelling Catheter # Voids 1 # Bowel Movements 1 ABP, PAP, CO, CI - Last Documented Arterial Blood Pressure 131/85 - Exam GENERAL DESCRIPTION: Middle-age male lying in bed in no distress RESPIRATORY SYSTEM: Unlabored breathing , decreased breath sounds at bases HEART: S1 S2 regular rate and rhythm , ABDOMEN: Soft , no tenderness EXTREMITIES: Left elbow wound has significantly decreased in size and no swelling redness or drainage - Labs CBC & Chem 7: 12/01/24 05:17 12/01/24 03:19 Labs: Abnormal Lab Results - Last 24 Hours (Table) 11/30/24 11/30/24 11/30/24 Range/Units 17:30 20:04 23:26 RBC (4.30-5.90) m/uL Hgb (13.0-17.5) gm/dL Hct (39.0-53.0) % MCHC (31.0-37.0) g/dL RDW (11.5-15.5) % Sodium (137-145) mmol/L Creatinine (0.66-1.25) mg/dL Glucose (74-99) mg/dL POC Glucose (mg/dL) 209 H 250 H 144 H (70-110) mg/dL Calcium (8.4-10.2) mg/dL 12/01/24 12/01/24 12/01/24 Range/Units 03:19 05:17 11:05 RBC 3.41 L (4.30-5.90) m/uL Hgb 10.0 L (13.0-17.5) gm/dL Hct 33.5 L (39.0-53.0) % MCHC 29.8 L (31.0-37.0) g/dL RDW 16.1 H (11.5-15.5) % Sodium 136 L (137-145) mmol/L Creatinine 0.60 L (0.66-1.25) mg/dL Glucose 127 H (74-99) mg/dL POC Glucose (mg/dL) 121 H (70-110) mg/dL Calcium 7.8 L (8.4-10.2) mg/dL Microbiology - Last 24 Hours (Table) 11/26/24 06:55 Blood Culture - Final Blood Assessment and Plan (1) Septic olecranon bursitis of left elbow Current Visit: Yes Status: Acute Code(s): M71.122 - OTHER INFECTIVE BURSITIS, LEFT ELBOW SNOMED Code(s): 0684856488542888 (2) Allergy to cephalosporin Current Visit: No Status: Acute Code(s): Z88.1 - ALLERGY STATUS TO OTHER ANTIBIOTIC AGENTS SNOMED Code(s): 576014286 (3) MRSA (methicillin resistant Staphylococcus aureus) infection Current Visit: Yes Status: Acute Code(s): A49.02 - METHICILLIN RESIS STAPH INFECTION, UNSP SITE SNOMED Code(s): 941537342 (4) Influenza A Current Visit: Yes Status: Acute Code(s): J10.1 - FLU DUE TO OTH IDENT INFLUENZA VIRUS W OTH RESP MANIFEST SNOMED Code(s): 397888254 (5) Pneumonia Current Visit: No Status: Acute Code(s): J18.9 - PNEUMONIA, UNSPECIFIED ORGANISM SNOMED Code(s): 678048438 Plan: 1patient being admitted to the hospital for left elbow pain swelling redness he did have a wound with a culture positive for MRSA in the outpatient setting now with concern for left elbow septic olecranon bursitis for the patient received adequate IV vancomycin. 2patient with influenza A for the patient is currently being treated with Tamiflu 75 mg twice 3patient with pneumonia blood cultures are so far negative, sputum is growing Haemophilus influenzae 4patient has responded to Zosyn to continue to finish his course of therapy monitor clinical course closely Dictation was produced using [employer] dictation software. please excuse any grammatical, word or spelling errors. Time with Patient: Less than 30
[2024-12-01 16:16] LABS: Glucose,Whole Blood 166 mg/dL (70-110)
[2024-12-01] MEDS: POTASSIUM CHLORIDE ER 10 MEQ TAB.ER.PRT PO SCH (19:53)
[2024-12-01] MEDS: levETIRAcetam 500 MG TAB PO SCH (19:53)
[2024-12-01 20:02] LABS: Glucose,Whole Blood 139 mg/dL (70-110)
[2024-12-01] MEDS: guaiFENesin SYRUP 100MG/5ML 200 MG/10 ML CUP OG-TUBE PRN (23:51)
[2024-12-02 06:22] LABS: Glucose,Whole Blood 98 mg/dL (70-110)
[2024-12-02 07:30] LABS: HCT 34.3 % (39.0-53.0); Hypochromasia Marked; MCH 28.9 pg (25.0-35.0); MCHC 29.1 g/dL (31.0-37.0); MCV 99.1 fL (80.0-100.0); Macrocytosis Slight; Mean Platelet Volume 9.2; Platelet Count 199 k/uL (150-450); RBC 3.46 m/uL (4.30-5.90); WBC 8.6 k/uL (3.8-10.6)
[2024-12-02 07:39] LABS: African American GFR (CKD) >90 (>60 ml/min/1.73 sqM); Anion Gap 5 mmol/L; Blood Urea Nitrogen 20 mg/dL (9-20); Calcium 8.5 mg/dL (8.4-10.2); Carbon Dioxide 29 mmol/L (22-30); Chloride 104 mmol/L (98-107); Glucose 91 mg/dL (74-99); Non-African American GFR(CKD) >90 (>60 ml/min/1.73 sqM); Sodium 138 mmol/L (137-145)
[2024-12-02 07:43] LABS: Potassium 4.2 mmol/L (3.5-5.1)
[2024-12-02] MEDS: predniSONE 5 MG TAB PO SCH (09:29)
[2024-12-02 10:55] LABS: Glucose,Whole Blood 156 mg/dL (70-110)
--- NOTE | 2024-12-02 12:05 | XR ---
EXAMINATION TYPE: XR chest 1V portable DATE OF EXAM: 12/02/2024 11:54 AM COMPARISON: Multiple radiographs, with the most recent on TECHNIQUE: XR chest 1V portable Portable AP radiograph of the chest. CLINICAL INDICATION:Male, 59 years old with history of sob; FINDINGS: Lungs/Pleura: No pneumothorax or pleural effusion. Similar right perihilar consolidation with scatter ed patchy opacities throughout the right lung. Left perihilar patchy opacity is similar with similar retrocardiac opacities. Heart/mediastinum: Cardiomediastinal silhouette is enlarged and stable. Atherosclerotic calcificatio ns are seen in the aorta. Musculoskeletal: No acute osseous pathology. Other findings: None Lines/Tubes: Stable right IJ central venous catheter with distal tip remaining in the right atrium. IMPRESSION: Unchanged multifocal patchy airspace opacities concerning for pneumonia. [facility] Lizandro Watkins, , 12/02/2024 12:02 PM
[2024-12-02] MEDS ORDERED: ANIDULAFUNGIN 100 MG in SODIUM CHLORIDE 0.9% 100 ML IVPB SCH (12:45)
--- NOTE | 2024-12-02 12:55 | P.PN ---
Subjective Progress Note Date: 12/02/24 Patient was seen today on 11/30/2024, remains in the ICU, patient was extubated yesterday initially to BiPAP 12/6/50% now on nasal cannula patient is requiring Precedex, and intermittently has been requiring Haldol for extreme agitation, and yelling and cursing people around him. He is on Precedex at 0.6, he is also on Zosyn, and on Tamiflu. Today I recommended Haldol on a as needed basis, he will receive 4 mg IV push every 6 hours as needed. And he will remain on Precedex, chest x-ray continues show evidence of bilateral airspace disease. Patient will definitely need to remain in the ICU, no plans to get him transferred to the floor as he remains marginal at best. WBC count 6.9 hemoglobin 9.7 electrolytes are normal renal profile is normal Patient was seen today on 12/01/2024, patient remains in the ICU, has been tolerating the extubation well, intermittently on BiPAP 12/6/50% presently on nasal cannula, he is sitting in a chair, does not seem to be in distress. And his mentation seems to be much improved. He is not as restless and agitated agitated seems to be better since he was placed back on his Subutex. Not requiring Haldol anymore. And not requiring any Precedex. Labs reviewed today he had relatively normal CBC WBC count is 10.2 hemoglobin is 10.0 electrolytes are normal renal profile is normal blood sugar is 121 chest x-ray continues show bibasilar patchy airspace disease opacities and interstitial prominence The patient is seen today December 02, 2024 in follow-up in the intensive care unit. He is currently awake and alert in no acute distress. He is sitting up in a chair at the bedside. He is maintaining O2 saturations in the 90s on 12 L high flow nasal cannula. He has normal saline at 10 mL/h. He remains on Zosyn. Blood culture revealed no growth. Sputum culture was positive for haemophilus influenza. White count 8.6. Hemoglobin 10.0. Platelets 199. Sodium 138. Potassium 4.2. Bicarb 29. BUN 20. Creatinine 0.59. Glucose 91. He remains on DuoNeb inhalations and prednisone. Heparin for DVT prophylaxis. Chest x-ray reveals multifocal patchy airspace opacities concerning for pneumonia. Objective - Vital Signs Vital signs: Vital Signs Temp 97.9 F 12/02/24 12:00 Pulse 90 12/02/24 12:28 Resp 13 12/02/24 12:00 BP 130/97 12/02/24 12:00 Pulse Ox 91 L 12/02/24 12:16 FiO2 50 12/02/24 08:18 Intake & Output 12/01/24 12/02/24 12/02/24 18:59 06:59 18:59 Intake Total 1230 1220 370 Output Total 550 1200 800 Balance 680 20 -430 Weight 47.3 kg Intake: IV 70 120 30 0.9 Normal Saline 70 120 30 Intake, IV Titration 200 100 Amount Piperacillin-Tazobactam 3 200 100 .375 gm In Sodium Chloride 0.9% 100 ml @ 25 mls/hr IVPB Q8HR [facility] Rx# :[id number] Oral 960 1100 240 Output: Urine 550 1200 800 Other: Voiding Method External Catheter External Catheter External Catheter # Voids 0 # Bowel Movements 1 1 ABP, PAP, CO, CI - Last Documented Arterial Blood Pressure 131/85 - Exam GENERAL EXAM: Alert, weak, 59-year-old male, on 12 L high flow nasal cannula, fairly, comfortable in no apparent distress. HEAD: Normocephalic. EYES: Normal reaction of pupils, equal size. NOSE: Clear with pink turbinates. THROAT: No erythema or exudates. Evidence of previous tracheostomy. NECK: No masses, no JVD. CHEST: No chest wall deformity. LUNGS: Equal air entry with lateral scattered rhonchi. CVS: S1 and S2 normal with no audible murmur, regular rhythm. ABDOMEN: No hepatosplenomegaly, normal bowel sounds, no guarding or rigidity. SPINE: No scoliosis or deformity SKIN: No rashes. Superficial ulcerations over the lower extremities. CENTRAL NERVOUS SYSTEM: No focal deficits, tone is normal in all 4 extremities. EXTREMITIES: There is no peripheral edema. No clubbing, no cyanosis. Peripheral pulses are intact. - Labs CBC & Chem 7: 12/02/24 06:37 12/02/24 06:37 Labs: Abnormal Lab Results - Last 24 Hours (Table) 12/01/24 12/01/24 12/02/24 Range/Units 16:14 20:01 06:37 RBC 3.46 L (4.30-5.90) m/uL Hgb 10.0 L (13.0-17.5) gm/dL Hct 34.3 L (39.0-53.0) % MCHC 29.1 L (31.0-37.0) g/dL RDW 16.0 H (11.5-15.5) % Creatinine (0.66-1.25) mg/dL POC Glucose (mg/dL) 166 H 139 H (70-110) mg/dL 12/02/24 12/02/24 Range/Units 06:37 10:53 RBC (4.30-5.90) m/uL Hgb (13.0-17.5) gm/dL Hct (39.0-53.0) % MCHC (31.0-37.0) g/dL RDW (11.5-15.5) % Creatinine 0.59 L (0.66-1.25) mg/dL POC Glucose (mg/dL) 156 H (70-110) mg/dL Microbiology - Last 24 Hours (Table) 11/26/24 06:55 Blood Culture - Final Blood Assessment and Plan Assessment: Acute on chronic hypoxic and hypercapnic respiratory failure, requiring intubation and mechanical ventilation shortly after he received Ativan for agitation on the medical floor. Extubated on 11/29/2024 remains marginal and will continue to monitor in the ICU Haemophilus influenza pneumonia, in the setting of acute influenza A infection/superimposed bacterial pneumonia Acute influenza A infection Severe hypokalemia, improved Elevated troponins, possibly secondary to supply/demand mismatch. Altered mental status, most likely secondary to metabolic encephalopathy Atrial fibrillation with controlled ventricular response. 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 Most recently treated with Tecentriq History of metastatic brain lesions. 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 Number of minutes spent on the visit: 10 Dictation was produced using [employer] dictation software. Please excuse any grammatical, word or spelling errors.
--- NOTE | 2024-12-02 15:03 | P.PN ---
Subjective Progress Note Date: 12/02/24 Seen in ICU at today's visit, since last visit he has been extubated. Reporting feeling improved today. On 6L NC, SPO2 91%. Mentation improved, A&Ox 3, answering questions appropriately Objective - Vital Signs Vital signs: Vital Signs Temp 97.9 F 12/02/24 12:00 Pulse 90 12/02/24 12:28 Resp 13 12/02/24 12:00 BP 130/97 12/02/24 12:00 Pulse Ox 91 L 12/02/24 12:16 FiO2 50 12/02/24 08:18 Intake & Output 12/01/24 12/02/24 12/02/24 18:59 06:59 18:59 Intake Total 1230 1220 370 Output Total 550 1200 800 Balance 680 20 -430 Weight 47.3 kg Intake: IV 70 120 30 0.9 Normal Saline 70 120 30 Intake, IV Titration 200 100 Amount Piperacillin-Tazobactam 3 200 100 .375 gm In Sodium Chloride 0.9% 100 ml @ 25 mls/hr IVPB Q8HR [facility] Rx# :[id number] Oral 960 1100 240 Output: Urine 550 1200 800 Other: Voiding Method External Catheter External Catheter External Catheter # Voids 0 # Bowel Movements 1 1 ABP, PAP, CO, CI - Last Documented Arterial Blood Pressure 131/85 - Constitutional General appearance: Present: no acute distress - EENT Eyes: Present: anicteric sclerae, EOMI ENT: Present: hearing grossly normal - Respiratory Details: breathing mildly labored - Cardiovascular Details: skin warm and dry - Integumentary Integumentary: Absent: cyanotic - Musculoskeletal Musculoskeletal: Present: generalized weakness - Psychiatric Psychiatric: Present: A&O x's 3 - Labs CBC & Chem 7: 12/02/24 06:37 12/02/24 06:37 Labs: Abnormal Lab Results - Last 24 Hours (Table) 12/01/24 12/01/24 12/02/24 Range/Units 16:14 20:01 06:37 RBC 3.46 L (4.30-5.90) m/uL Hgb 10.0 L (13.0-17.5) gm/dL Hct 34.3 L (39.0-53.0) % MCHC 29.1 L (31.0-37.0) g/dL RDW 16.0 H (11.5-15.5) % Creatinine (0.66-1.25) mg/dL POC Glucose (mg/dL) 166 H 139 H (70-110) mg/dL 12/02/24 12/02/24 Range/Units 06:37 10:53 RBC (4.30-5.90) m/uL Hgb (13.0-17.5) gm/dL Hct (39.0-53.0) % MCHC (31.0-37.0) g/dL RDW (11.5-15.5) % Creatinine 0.59 L (0.66-1.25) mg/dL POC Glucose (mg/dL) 156 H (70-110) mg/dL Microbiology - Last 24 Hours (Table) 11/26/24 06:55 Blood Culture - Final Blood Assessment and Plan (1) Altered mental status Current Visit: Yes Status: Acute Priority: High Code(s): R41.82 - ALTERED MENTAL STATUS, UNSPECIFIED SNOMED Code(s): 836405467 (2) Small cell lung cancer Current Visit: Yes Status: Acute Priority: Medium Code(s): C34.90 - MA LIGNANT NEOPLASM OF UNSP PART OF UNSP BRONCHUS OR LUNG SNOMED Code(s): 25 7723206 Plan: Altered mental status -Patient has had similar episodes in the past, usually associated with seizure activity or disease progression in the brain. CT of the head without contrast did not report any acute or new findings, no reports of seizure activity. -MRSA infection. Influenza A. Cont treatment per Infectious disease. -Pt mental status was slowly improving during admit. However, Pt began having GABRIEL requiring bipap and subsequently intubation -MRI brain ordered, however scan was discontinued after multiple attempts as pt was unable to tolerate exam. -CT brain w/ contrast showing no definitive enhancing masses to suggest active metastatic disease. Suspect treated lesions in the bilateral occipital region -He has since been extubated, mentation improved Small cell lung cancer -Diagnosis and treatment as stated in consult -Patient has had disease recurrence, all within the brain. Treated with radiation -Patient has been on maintenance immunotherapy treatment for almost 2 years, no progression of disease/new disease -CT chest with contrast done, no new disease, small lilly pl effusions -Hold treatment for now pending course of hospitalization Discussed scan results and oncology plan of care with patient and his family. All questions and concerns were addressed
[2024-12-02 20:19] LABS: Glucose,Whole Blood 172 mg/dL (70-110)
[2024-12-02] MEDS ORDERED: OSELTAMIVIR 75 MG CAP PO SCH (21:00)
--- NOTE | 2024-12-03 01:17 | PN ---
PROGRESS NOTE DATE OF SERVICE: 12/02/2024 CHIEF COMPLAINT: Carcinoma of the lung. HISTORY OF PRESENT ILLNESS: This gentleman is doing better each day. He is more awake and alert. He is sitting up in the chair completely oriented. PHYSICAL EXAMINATION: VITAL SIGNS: Normal. He is in atrial fibrillation. CHEST: Breath sounds are heard bilaterally. ABDOMEN: Soft, nontender. EXTREMITIES: Appear to be improved with less venous congestion. IMPRESSION: 1. Status post acute respiratory failure. 2. Carcinoma of the lung. 3. Sepsis. 4. Atrial fibrillation. 5. Electrolyte imbalance. PLAN: Continue with this management and he will probably be able to be moved to a regular bed the next day or 2. MMODL / IJN: [id number] /
[2024-12-03 06:04] LABS: Glucose,Whole Blood 103 mg/dL (70-110)
[2024-12-03 06:29] LABS: Anisocytosis Slight; HCT 33.5 % (39.0-53.0); HGB 10.2 gm/dL (13.0-17.5); Hypochromasia Moderate; MCH 29.4 pg (25.0-35.0); MCHC 30.4 g/dL (31.0-37.0); MCV 96.7 fL (80.0-100.0); Mean Platelet Volume 8.6; Platelet Count 240 k/uL (150-450); RBC 3.47 m/uL (4.30-5.90); RDW 16.1 % (11.5-15.5); WBC 9.5 k/uL (3.8-10.6)
[2024-12-03 06:38] LABS: African American GFR (CKD) >90 (>60 ml/min/1.73 sqM); Anion Gap 3 mmol/L; Blood Urea Nitrogen 18 mg/dL (9-20); Calcium 8.8 mg/dL (8.4-10.2); Carbon Dioxide 36 mmol/L (22-30); Chloride 99 mmol/L (98-107); Glucose 103 mg/dL (74-99); Non-African American GFR(CKD) >90 (>60 ml/min/1.73 sqM); Potassium 4.1 mmol/L (3.5-5.1); Sodium 138 mmol/L (137-145)
--- NOTE | 2024-12-03 08:04 | XR ---
EXAMINATION TYPE: XR chest 1V portable DATE OF EXAM: 12/03/2024 5:35 AM COMPARISON: Multiple radiographs, with the most recent on 12/02/2024 TECHNIQUE: XR chest 1V portable Portable AP radiograph of the chest. CLINICAL INDICATION:Male, 59 years old with history of distress; FINDINGS: Lungs/Pleura: No pneumothorax or pleural effusion. Similar right perihilar consolidation with scatter ed patchy opacities throughout the right lung. Left perihilar patchy opacity is similar with similar retrocardiac opacities. Heart/mediastinum: Cardiomediastinal silhouette is enlarged and stable. Prominence of the bilateral h sera related to enlarged pulmonary arteries suggesting pulmonary hypertension. Atherosclerotic calcif ications are seen in the aorta. Musculoskeletal: No acute osseous pathology. Other findings: None Lines/Tubes: Stable right IJ central venous catheter with distal tip remaining in the right atrium. IMPRESSION: Unchanged multifocal patchy airspace opacities concerning for pneumonia. Most pronounced throughout t he right lung. [facility], , 12/03/2024 8:01 AM
--- NOTE | 2024-12-03 11:35 | P.PN ---
Subjective Progress Note Date: 12/03/24 Patient was seen today on 11/30/2024, remains in the ICU, patient was extubated yesterday initially to BiPAP 12/6/50% now on nasal cannula patient is requiring Precedex, and intermittently has been requiring Haldol for extreme agitation, and yelling and cursing people around him. He is on Precedex at 0.6, he is also on Zosyn, and on Tamiflu. Today I recommended Haldol on a as needed basis, he will receive 4 mg IV push every 6 hours as needed. And he will remain on Precedex, chest x-ray continues show evidence of bilateral airspace disease. Patient will definitely need to remain in the ICU, no plans to get him transferred to the floor as he remains marginal at best. WBC count 6.9 hemoglobin 9.7 electrolytes are normal renal profile is normal Patient was seen today on 12/01/2024, patient remains in the ICU, has been tolerating the extubation well, intermittently on BiPAP 12/6/50% presently on nasal cannula, he is sitting in a chair, does not seem to be in distress. And his mentation seems to be much improved. He is not as restless and agitated agitated seems to be better since he was placed back on his Subutex. Not requiring Haldol anymore. And not requiring any Precedex. Labs reviewed today he had relatively normal CBC WBC count is 10.2 hemoglobin is 10.0 electrolytes are normal renal profile is normal blood sugar is 121 chest x-ray continues show bibasilar patchy airspace disease opacities and interstitial prominence The patient is seen today December 02, 2024 in follow-up in the intensive care unit. He is currently awake and alert in no acute distress. He is sitting up in a chair at the bedside. He is maintaining O2 saturations in the 90s on 12 L high flow nasal cannula. He has normal saline at 10 mL/h. He remains on Zosyn. Blood culture revealed no growth. Sputum culture was positive for haemophilus influenza. White count 8.6. Hemoglobin 10.0. Platelets 199. Sodium 138. Potassium 4.2. Bicarb 29. BUN 20. Creatinine 0.59. Glucose 91. He remains on DuoNeb inhalations and prednisone. Heparin for DVT prophylaxis. Chest x-ray reveals multifocal patchy airspace opacities concerning for pneumonia. The patient is seen today December 03, 2024 in follow-up in the intensive care unit. He is currently sitting up in a chair. Awake and alert in no acute distress. He is confused at times. deputy insurance commissioner is at the bedside. He is maintaining good O2 saturations in the 90s on 7 L high flow nasal cannula. He remains on Zosyn. He has not utilized BiPAP in greater than 24 hours. Continued on DuoNeb and elations. Continued on prednisone. Remains on Subutex. Chest x-ray read shows unchanged multifocal patchy airspace opacities. More pronounced throug hout the right lung. Objective - Vital Signs Vital signs: Vital Signs Temp 98.1 F 12/03/24 08:00 Pulse 108 H 12/03/24 09:18 Resp 22 12/03/24 08:00 BP 144/111 12/03/24 08:00 Pulse Ox 93 L 12/03/24 08:00 FiO2 50 12/02/24 08:18 Intake & Output 12/02/24 12/03/24 12/03/24 18:59 06:59 18:59 Intake Total 370 720 100 Output Total 800 900 700 Balance -430 -180 -600 Weight 47.3 kg 76 kg Intake: IV 30 20 100 0.9 Normal Saline 30 20 Piperacillin-Tazobactam 3 100 .375 gm In Sodium Chloride 0.9% 100 ml @ 25 mls/hr IVPB Q8HR [facility] Rx# :[id number] Intake, IV Titration 100 Amount Piperacillin-Tazobactam 3 100 .375 gm In Sodium Chloride 0.9% 100 ml @ 25 mls/hr IVPB Q8HR [facility] Rx# :[id number] Oral 240 700 Output: Urine 800 900 700 Other: Voiding Method External Catheter External Catheter # Bowel Movements 1 ABP, PAP, CO, CI - Last Documented Arterial Blood Pressure 131/85 - Exam GENERAL EXAM: Alert, weak, 59-year-old male, up in a chair, on 7 L high flow nasal cannula, comfortable in no apparent distress. HEAD: Normocephalic. EYES: Normal reaction of pupils, equal size. NOSE: Clear with pink turbinates. THROAT: No erythema or exudates. Evidence of previous tracheostomy. NECK: No masses, no JVD. CHEST: No chest wall deformity. LUNGS: Equal air entry with lateral scattered rhonchi. CVS: S1 and S2 normal with no audible murmur, regular rhythm. ABDOMEN: No hepatosplenomegaly, normal bowel sounds, no guarding or rigidity. SPINE: No scoliosis or deformity SKIN: No rashes. Superficial ulcerations over the lower extremities. CENTRAL NERVOUS SYSTEM: No focal deficits, tone is normal in all 4 extremities. EXTREMITIES: There is no peripheral edema. No clubbing, no cyanosis. Peripheral pulses are intact. - Labs CBC & Chem 7: 12/03/24 06:13 12/03/24 06:13 Labs: Abnormal Lab Results - Last 24 Hours (Table) 12/02/24 12/03/24 12/03/24 Range/Units 20:18 06:13 06:13 RBC 3.47 L (4.30-5.90) m/uL Hgb 10.2 L (13.0-17.5) gm/dL Hct 33.5 L (39.0-53.0) % MCHC 30.4 L (31.0-37.0) g/dL RDW 16.1 H (11.5-15.5) % Carbon Dioxide 36 H (22-30) mmol/L Glucose 103 H (74-99) mg/dL POC Glucose (mg/dL) 172 H (70-110) mg/dL Assessment and Plan Assessment: Acute on chronic hypoxic and hypercapnic respiratory failure, requiring intubation and mechanical ventilation shortly after he received Ativan for agitation on the medical floor. Extubated on 11/29/2024 Haemophilus influenza pneumonia, in the setting of acute influenza A infection/superimposed bacterial pneumonia Acute influenza A infection Severe hypokalemia, improved Elevated troponins, possibly secondary to supply/demand mismatch. Altered mental status, most likely secondary to metabolic encephalopathy Atrial fibrillation with controlled ventricular response. 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 Most re cently treated with Tecentriq History of metastatic brain lesions. 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 Plan is to return to [facility] at discharge I have personally seen and examined the patient, performed the documentation and the assessment and plan as written. Number of minutes spent on the visit: 10 Dictation was produced using [employer] dictation software. Please excuse any grammatical, word or spelling errors.
[2024-12-03 11:42] LABS: Glucose,Whole Blood 124 mg/dL (70-110)
[2024-12-03] MEDS ORDERED: ZINC OXIDE PASTE (Z-GUARD) 1 APPLIC TOPICAL PRN (13:32)
--- NOTE | 2024-12-03 14:49 | P.PN ---
Subjective Progress Note Date: 12/02/24 Principal diagnosis: Reason for follow-up is left elbow septic olecranon bursitis Patient is a 59-year-old male with a past medical history significant for hypertension seizure disorder atrial fibrillation he did have a metastatic lung cancer has been brought to the hospital for worsening swelling to the left elbow with a culture positive for MRSA concerning for septic olecranon bursitis. On today's evaluation that is 12/02/2024, patient has been afebrile, patient is breathing slightly comfortably and is currently on 6 L nasal oxygen, patient denies having any significant cough no chest pain, patient denies nausea vomiting or diarrhea and no abdominal pain. Patient white count is 8.6, creatinine 0.59 Objective - Vital Signs Vital signs: Vital Signs Temp 97.9 F 12/02/24 12:00 Pulse 90 12/02/24 12:28 Resp 13 12/02/24 12:00 BP 130/97 12/02/24 12:00 Pulse Ox 91 L 12/02/24 12:16 FiO2 50 12/02/24 08:18 Intake & Output 12/01/24 12/02/24 12/02/24 18:59 06:59 18:59 Intake Total 1230 1220 370 Output Total 550 1200 800 Balance 680 20 -430 Weight 47.3 kg Intake: IV 70 120 30 0.9 Normal Saline 70 120 30 Intake, IV Titration 200 100 Amount Piperacillin-Tazobactam 3 200 100 .375 gm In Sodium Chloride 0.9% 100 ml @ 25 mls/hr IVPB Q8HR [facility] Rx# :[id number] Oral 960 1100 240 Output: Urine 550 1200 800 Other: Voiding Method External Catheter External Catheter External Catheter # Voids 0 # Bowel Movements 1 1 ABP, PAP, CO, CI - Last Documented Arterial Blood Pressure 131/85 - Exam GENERAL DESCRIPTION: Middle-age male lying in bed in no distress RESPIRATORY SYSTEM: Unlabored breathing , decreased breath sounds at bases HEART: S1 S2 regular rate and rhythm , ABDOMEN: Soft , no tenderness EXTREMITIES: No edema feet - Labs CBC & Chem 7: 12/03/24 06:13 12/03/24 06:13 Labs: Abnormal Lab Results - Last 24 Hours (Table) 12/01/24 12/01/24 12/02/24 Range/Units 16:14 20:01 06:37 RBC 3.46 L (4.30-5.90) m/uL Hgb 10.0 L (13.0-17.5) gm/dL Hct 34.3 L (39.0-53.0) % MCHC 29.1 L (31.0-37.0) g/dL RDW 16.0 H (11.5-15.5) % Creatinine (0.66-1.25) mg/dL POC Glucose (mg/dL) 166 H 139 H (70-110) mg/dL 12/02/24 12/02/24 Range/Units 06:37 10:53 RBC (4.30-5.90) m/uL Hgb (13.0-17.5) gm/dL Hct (39.0-53.0) % MCHC (31.0-37.0) g/dL RDW (11.5-15.5) % Creatinine 0.59 L (0.66-1.25) mg/dL POC Glucose (mg/dL) 156 H (70-110) mg/dL Microbiology - Last 24 Hours (Table) 11/26/24 06:55 Blood Culture - Final Blood Assessment and Plan (1) Septic olecranon bursitis of left elbow Current Visit: Yes Status: Acute Code(s): M71.122 - OTHER INFECTIVE BURSITIS, LEFT ELBOW SNOMED Code(s): 4681867042283728 (2) Allergy to cephalosporin Current Visit: No Status: Acute Code(s): Z88.1 - ALLERGY STATUS TO OTHER ANTIBIOTIC AGENTS SNOMED Code(s): 120074966 (3) MRSA (methicillin resistant Staphylococcus aureus) infection Current Visit: Yes Status: Acute Code(s): A49.02 - METHICILLIN RESIS STAPH INFECTION, UNSP SITE SNOMED Code(s): 931024573 (4) Influenza A Current Visit: Yes Status: Acute Code(s): J10.1 - FLU DUE TO OTH IDENT INFLUENZA VIRUS W OTH RESP MANIFEST SNOMED Code(s): 554019324 (5) Pneumonia Current Visit: No Status: Acute Code(s): J18.9 - PNEUMONIA, UNSPECIFIED ORGANISM SNOMED Code(s): 920255866 Plan: 1patient being admitted to the hospital for left elbow pain swelling redness he did have a wound with a culture positive for MRSA in the outpatient setting now with concern for left elbow septic olecranon bursitis for the patient received adequate IV vancomycin. 2patient with influenza A for the patient has completed 5-day course of Tamiflu 3patient with pneumonia blood cultures are so far negative, sputum is growing Haemophilus influenzae 4patient slowly clinical improvement to continue Zosyn while inpatient and monitor clinical course closely Dictation was produced using [employer] dictation software. please excuse any grammatical, word or spelling errors. Time with Patient: Less than 30
--- NOTE | 2024-12-03 14:49 | P.PN ---
Subjective Progress Note Date: 12/03/24 Principal diagnosis: Reason for follow-up is left elbow septic olecranon bursitis Patient is a 59-year-old male with a past medical history significant for hypertension seizure disorder atrial fibrillation he did have a metastatic lung cancer has been brought to the hospital for worsening swelling to the left elbow with a culture positive for MRSA concerning for septic olecranon bursitis. On today's evaluation that is 12/03/2024, Patient is afebrile this morning pa jmnt denies having any chest pain shortness of breath or any worsening cough, the patient is currently on room air, patient denies any abdominal pain no diarrhea no nausea no vomiting. Patient white count is 9.5, creatinine 0.67 Objective - Vital Signs Vital signs: Vital Signs Temp 99.2 F 12/03/24 13:35 Pulse 101 H 12/03/24 13:35 Resp 20 12/03/24 13:35 BP 121/88 12/03/24 13:35 Pulse Ox 95 12/03/24 13:35 FiO2 50 12/02/24 08:18 Intake & Output 12/02/24 12/03/24 12/03/24 18:59 06:59 18:59 Intake Total 370 720 120 Output Total 138 925 6738 Balance -430 -180 -1280 Weight 47.3 kg 76 kg Intake: IV 30 20 120 0.9 Normal Saline 30 20 Invasive Line 2 20 Piperacillin-Tazobactam 3 100 .375 gm In Sodium Chloride 0.9% 100 ml @ 25 mls/hr IVPB Q8HR [facility] Rx# :[id number] Intake, IV Titration 100 Amount Piperacillin-Tazobactam 3 100 .375 gm In Sodium Chloride 0.9% 100 ml @ 25 mls/hr IVPB Q8HR [facility] Rx# :[id number] Oral 240 700 Output: Urine 042 047 4629 Other: Voiding Method External Catheter External Catheter External Catheter # Bowel Movements 1 ABP, PAP, CO, CI - Last Documented Arterial Blood Pressure 131/85 - Exam GENERAL DESCRIPTION: Middle-age male lying in bed in no distress RESPIRATORY SYSTEM: Unlabored breathing , decreased breath sounds at bases HEART: S1 S2 regular rate and rhythm , ABDOMEN: Soft , no tenderness EXTREMITIES: No edema feet - Labs CBC & Chem 7: 12/03/24 06:13 12/03/24 06:13 Labs: Abnormal Lab Results - Last 24 Hours (Table) 12/02/24 12/03/24 12/03/24 Range/Units 20:18 06:13 06:13 RBC 3.47 L (4.30-5.90) m/uL Hgb 10.2 L (13.0-17.5) gm/dL Hct 33.5 L (39.0-53.0) % MCHC 30.4 L (31.0-37.0) g/dL RDW 16.1 H (11.5-15.5) % Carbon Dioxide 36 H (22-30) mmol/L Glucose 103 H (74-99) mg/dL POC Glucose (mg/dL) 172 H (70-110) mg/dL 12/03/24 Range/Units 11:40 RBC (4.30-5.90) m/uL Hgb (13.0-17.5) gm/dL Hct (39.0-53.0) % MCHC (31.0-37.0) g/dL RDW (11.5-15.5) % Carbon Dioxide (22-30) mmol/L Glucose (74-99) mg/dL POC Glucose (mg/dL) 124 H (70-110) mg/dL Assessment and Plan (1) Septic olecranon bursitis of left elbow Current Visit: Yes Status: Acute Code(s): M71.122 - OTHER INFECTIVE BURSITIS, LEFT ELBOW SNOMED Code(s): 7628804079986249 (2) Allergy to cephalosporin Current Visit: No Status: Acute Code(s): Z88.1 - ALLERGY STATUS TO OTHER ANTIBIOTIC AGENTS SNOMED Code(s): 633684875 (3) MRSA (methicillin resistant Staphylococcus aureus) infection Current Visit: Yes Status: Acute Code(s): A49.02 - METHICILLIN RESIS STAPH INFECTION, UNSP SITE SNOMED Code(s): 874772736 (4) Influenza A Current Visit: Yes Status: Acute Code(s): J10.1 - FLU DUE TO OTH IDENT INFLUENZA VIRUS W OTH RESP MANIFEST SNOMED Code(s): 627602981 (5) Pneumonia Current Visit: No Status: Acute Code(s): J18.9 - PNEUMONIA, UNSPECIFIED ORGANISM SNOMED Code(s): 245559517 Plan: 1patient being admitted to the hospital for left elbow pain swelling redness he did have a wound with a culture positive for MRSA in the outpatient setting now with concern for left elbow septic olecranon bursitis for the patient received adequate IV vancomycin. 2patient with influenza A for the patient has completed 5-day course of Tamiflu 3patient with pneumonia blood cultures are so far negative, sputum is growing Haemophilus influenzae 4patient is afebrile patient white count has normalized, patient is currently being treated Zosyn while inpatient and monitor clinical course closely Dictation was produced using [employer] dictation software. please excuse any grammatical, word or spelling errors. Time with Patient: Less than 30
[2024-12-03 16:30] LABS: Glucose,Whole Blood 198 mg/dL (70-110)
[2024-12-03 20:02] LABS: Glucose,Whole Blood 144 mg/dL (70-110)
--- NOTE | 2024-12-03 22:53 | PN ---
PROGRESS NOTE DATE OF SERVICE: 12/03/2024 CHIEF COMPLAINT: Respiratory failure, CA of the lung, atrial fibrillation. HISTORY OF PRESENT ILLNESS: This gentleman continues to slowly improve. He is off the ventilator, respiring on his own and eating. He is oriented. PHYSICAL EXAMINATION: LUNGS: Breath sounds are heard bilaterally. CARDIAC EXAM: Unremarkable except for his AFib. ABDOMEN: Soft, nontender. IMPRESSION: 1. Respiratory failure. 2. Acute respiratory arrest. 3. Atrial fibrillation atrial fibrillation. 4. Carcinoma of the lung. PLAN: Progress his activity and continue to look towards discharge. MMODL / IJN: [id number] /
[2024-12-04 06:07] LABS: Glucose,Whole Blood 122 mg/dL (70-110)
[2024-12-04 11:49] LABS: Glucose,Whole Blood 144 mg/dL (70-110)
--- NOTE | 2024-12-04 12:20 | P.PN ---
Subjective Progress Note Date: 12/04/24 Principal diagnosis: Reason for follow-up is left elbow septic olecranon bursitis Patient is a 59-year-old male with a past medical history significant for hypertension seizure disorder atrial fibrillation he did have a metastatic lung cancer has been brought to the hospital for worsening swelling to the left elbow with a culture positive for MRSA concerning for septic olecranon bursitis. On today's evaluation that is 12/04/2024,the patient denies any fever or any chills, patient is breathing comfortably however still requiring 8 L high flow nasal oxygen, the patient denies chest pain shortness of breath and no significant cough, patient denies abdominal pain, no nausea vomiting or diarrhea.No new lab has been obtained today Objective - Vital Signs Vital signs: Vital Signs Temp 99.2 F 12/04/24 09:50 Pulse 115 H 12/04/24 11:31 Resp 18 12/04/24 09:50 BP 156/103 12/04/24 09:50 Pulse Ox 93 L 12/04/24 09:50 FiO2 50 12/02/24 08:18 Intake & Output 12/03/24 12/04/24 12/04/24 18:59 06:59 18:59 Intake Total 480 20 128 Output Total 1400 600 500 Balance -920 580 -372 Weight 74 kg Intake: IV 120 20 10 Invasive Line 2 20 20 10 Piperacillin-Tazobactam 3 100 .375 gm In Sodium Chloride 0.9% 100 ml @ 25 mls/hr IVPB Q8HR [facility] Rx# :[id number] Oral 360 118 Output: Urine 1400 600 500 Other: Voiding Method Urinal External Catheter External Catheter Diaper # Bowel Movements 1 1 1 ABP, PAP, CO, CI - Last Documented Arterial Blood Pressure 131/85 - Exam GENERAL DESCRIPTION: Middle-age male lying in bed in no distress RESPIRATORY SYSTEM: Unlabored breathing , decreased breath sounds at bases HEART: S1 S2 regular rate and rhythm , ABDOMEN: Soft , no tenderness EXTREMITIES: No edema feet - Labs CBC & Chem 7: 12/03/24 06:13 12/03/24 06:13 Labs: Abnormal Lab Results - Last 24 Hours (Table) 12/03/24 12/03/24 12/04/24 Range/Units 16:29 19:59 06:06 POC Glucose (mg/dL) 198 H 144 H 122 H (70-110) mg/dL 12/04/24 Range/Units 11:47 POC Glucose (mg/dL) 144 H (70-110) mg/dL Assessment and Plan (1) Septic olecranon bursitis of left elbow Current Visit: Yes Status: Acute Code(s): M71.122 - OTHER INFECTIVE BURSITIS, LEFT ELBOW SNOMED Code(s): 2915393304835544 (2) Allergy to cephalosporin Current Visit: No Status: Acute Code(s): Z88.1 - ALLERGY STATUS TO OTHER ANTIBIOTIC AGENTS SNOMED Code(s): 537100130 (3) MRSA (methicillin resistant Staphylococcus aureus) infection Current Visit: Yes Status: Acute Code(s): A49.02 - METHICILLIN RESIS STAPH INFECTION, UNSP SITE SNOMED Code(s): 926158287 (4) Influenza A Current Visit: Yes Status: Acute Code(s): J10.1 - FLU DUE TO OTH IDENT INFLUENZA VIRUS W OTH RESP MANIFEST SNOMED Code(s): 990421036 (5) Pneumonia Current Visit: No Status: Acute Code(s): J18.9 - PNEUMONIA, UNSPECIFIED ORGANISM SNOMED Code(s): 001572595 Plan: 1patient being admitted to the hospital for left elbow pain swelling redness he did have a wound with a culture positive for MRSA in the outpatient setting now with concern for left elbow septic olecranon bursitis for the patient received adequate IV vancomycin. 2patient with influenza A for the patient has completed 5-day course of Tamiflu 3patient with pneumonia blood cultures are so far negative, sputum is growing Haemophilus influenzae 4patient is afebrile patient white count has normalized, and seem to have some clinical improvement on Zosyn will transition to oral antibiotic on discharge if he has not completed his course while here Dictation was produced using [employer] mobileation software. please excuse any grammatical, word or spelling errors. Time with Patient: Less than 30
--- NOTE | 2024-12-04 13:46 | P.PN ---
Subjective Progress Note Date: 12/04/24 Principal diagnosis: Mental status changes. Patient is a 59-year-old male with past medical history significant for hypertension, atrial fibrillation, polysubstance abuse, seizure disorder, previous ventilator dependent respiratory failure, lung cancer with brain mets status post chemo and radiation. More recently, patient's been following at the [facility] for multiple wounds. He was noted to be confused. Left elbow was erythemic and warm thought to be olecranon bursitis. Wound culture of the left elbow positive for methicillin-resistant Staphylococcus aureus. Sent to the emergency department for IV antibiotics on 11/12/2024. He was admitted to the cardiac stepdown unit. Apparently, noted to have increased work of breathing, and placed on BiPAP. Pulmonary consult was placed. Patient currently being evaluated in room 350. Remains confused, lethargic and will not answer my questions. There is a bedside sitter. Brain CT done on admission did not show any acute intracranial bleeding or mass effect. Postsurgical changes in the right posterior parietal and posterior left parietal occipital lobes with craniotomy. Patient currently on BiPAP with settings 12/6 and FiO2 of 40%. Nonlabored breathing. Achieving adequate tidal volumes. Previous VBG showing a pH of 7.33, pCO2 of 47. Chest x-ray showing diffuse interstitial densities, consider CHF versus atypical pneumonias. Is afebrile. CBC: WBC count 9.6, hemoglobin 14.8, platelets 316. CMP: sodium 142, potassium 2.4, chloride 103, serum bicarb 22, BUN 59, creatinine 1.2, glucose 96. Urinalysis unremarkable for infection. LFTs not elevated. Troponin 0.06. Admission EKG: Atrial fibr illation with controlled ventricular response, rate 81 bpm, RBBB pattern. Current most recent vital signs: Temperature 97.9 F, heart rate 109 bpm, blood pressure 123/75 mmHg, nontachypneic, on the above-mentioned BiPAP settings, SpO2 99%. Progress note dated November 15, 2024. 59-year-old male who is seen today in room 350. He is in bed, on 5 L nasal cannula. The BiPAP device is set at 10/5 and 40%. He is not receiving any IV fluids. The patient has a history of hypertension, atrial fibrillation, polysubstance abuse, seizure disorder, previous ventilator dependent respiratory failure, lung cancer, with brain mets. The patient was transferred over to the hospital, because of an elbow infection, secondary to MRSA, to receive IV antibiotics in the form of vancomycin. Current laboratory data includes a white count 13, hemoglobin 12.2, hematocrit 38.8, and a platelet count of 290,000. Sodium 144, potassium 2.4, chlorides 113, CO2 23, BUN 31, and creatinine 0.61. Glucose is 115. Troponin was 0.036. N-terminal proBNP was 5560. Procalcitonin level was normal at 0.13. Blood cultures are currently negative. Chest x-ray shows significant opacification of the left lung. The right lung looks relatively normal save for possible infiltrate or atelectasis at the right lung base medially. Progress note dated November 16, 2024. 59-year-old male seen today in room 350. The patient is currently on 6 L of oxygen by nasal cannula. The patient is not receiving any fluids. He is receiving vancomycin for his MRSA infection. Clinically, he is a bit more awake and alert today than he was yesterday. Current laboratory data includes a white count 12.6, hemoglobin 13.5, hematocrit 41.6, and a platelet count of 297,000. Sodium 146, potassium 2.6, chlorides 111, CO2 25, anion gap 10, BUN 23, creatinine 0.58. Blood cultures are negative. Progress note dated November 17, 2024. 59-year-old male seen today in room 350. Currently, the patient is on nasal O2, at 5 L. He is getting saline at 5 cc an hour. According to the nurse, the patient has been having tachycardia, i.e. atrial fibrillation with RVR, and the primary service is being notified, so that may be cardiology can see the patient. Currently, white count 16.3, hemoglobin 14.1, hematocrit 44.1, platelet count 3 26,000. Sodium 147, potassium 2.8, chlorides 113, CO2 24, BUN 18, creatinine 0.6. Glucose is 204. Calcium 9.2. Procalcitonin level was normal at 0.13. Blood cultures are negative. Chest x-ray apparently shows improving aeration to the left lung. Patient was seen today on 11/30/2024, remains in the ICU, patient was extubated yesterday initially to BiPAP 09/06/50% now on nasal cannula patient is requiring Precedex, and intermittently has been requiring Haldol for extreme agitation, and yelling and cursing people around him. He is on Precedex at 0.6, he is also on Zosyn, and on Tamiflu. Today I recommended Haldol on a as needed basis, he will receive 4 mg IV push every 6 hours as needed. And he will remain on Precedex, chest x-ray continues show evidence of bilateral airspace disease. Patient will definitely need to remain in the ICU, no plans to get him transferred to the floor as he remains marginal at best. WBC count 6.9 hemoglobin 9.7 electrolytes are normal renal profile is normal Patient was seen today on 12/01/2024, patient remains in the ICU, has been tolerating the extubation well, intermittently on BiPAP 09/06/50% presently on nasal cannula, he is sitting in a chair, does not seem to be in distress. And his mentation seems to be much improved. He is not as restless and agitated agitated seems to be better since he was placed back on his Subutex. Not requir ing Haldol anymore. And not requiring any Precedex. Labs reviewed today he had relatively normal CBC WBC count is 10.2 hemoglobin is 10.0 electrolytes are normal renal profile is normal blood sugar is 121 chest x-ray continues show bibasilar patchy airspace disease opacities and interstitial prominence The patient is seen today December 02, 2024 in follow-up in the intensive care unit. He is currently awake and alert in no acute distress. He is sitting up in a chair at the bedside. He is maintaining O2 saturations in the 90s on 12 L high flow nasal cannula. He has normal saline at 10 mL/h. He remains on Zosyn. Blood culture revealed no growth. Sputum culture was positive for haemophilus influenza. White count 8.6. Hemoglobin 10.0. Platelets 199. Sodium 138. Potassium 4.2. Bicarb 29. BUN 20. Creatinine 0.59. Glucose 91. He remains on DuoNeb inhalations and prednisone. Heparin for DVT prophylaxis. Chest x-ray reveals multifocal patchy airspace opacities concerning for pneumonia. The patient is seen today December 03, 2024 in follow-up in the intensive care unit. He is currently sitting up in a chair. Awake and alert in no acute distress. He is confused at times. afterschool babysitter is at the bedside. He is maintaining good O2 saturations in the 90s on 7 L high flow nasal cannula. He remains on Zosyn. He has not utilized BiPAP in greater than 24 hours. Continued on DuoNeb and elations. Continued on prednisone. Remains on Subutex. Chest x-ray read shows unchanged multifocal patchy airspace opacities. More pronounced throughout the right lung. Progress note dated December 04, 2024. 59-year-old male seen today in room 376. The patient is on a liter high flow O2. He is receiving IV Zosyn. For the past number of days, he was in the intensive care unit. Clinically, he appears to be relatively stable. He denies any shortness of breath, cough, wheezing, chest tightness. No new labs today other than a glucose of 144. Sputum sampling from November 26 shows evidence of Haemophilus influenzae. Recent chest x-ray dated December 03, 2024 shows unchanged multifocal patchy airspace opacities, concerning for pneumonia, throughout the right lung. Objective - Vital Signs Vital signs: Vital Signs Temp 99.2 F 12/04/24 09:50 Pulse 115 H 12/04/24 11:31 Resp 18 12/04/24 09:50 BP 156/103 12/04/24 09:50 Pulse Ox 93 L 12/04/24 09:50 FiO2 50 12/02/24 08:18 Intake & Output 12/03/24 12/04/24 12/04/24 18:59 06:59 18:59 Intake Total 480 20 128 Output Total 1400 600 500 Balance -920 -580 -372 Weight 74 kg Intake: IV 120 20 10 Invasive Line 2 20 20 10 Piperacillin-Tazobactam 3 100 .375 gm In Sodium Chloride 0.9% 100 ml @ 25 mls/hr IVPB Q8HR [facility] Rx# :[id number] Oral 360 118 Output: Urine 1400 600 500 Other: Voiding Method Urinal External Catheter External Catheter Diaper # Bowel Movements 1 1 1 ABP, PAP, CO, CI - Last Documented Arterial Blood Pressure 131/85 - Exam No acute distress, somnolent/lethargic, currently on 8 L nasal cannula. Respiratory rate in the mid to high 20s. HEENT examination is grossly unremarkable. Mucous membranes are moist. No oral lesions. Neck supple. Full range of motion. No adenopathy thyromegaly or neck vein distention. Cardiovascular examination reveals an irregular rhythm and rate. S1-S2 normal. No S3 or S4. No discernible murmur noted. Heart sounds are distant. Lungs reveal tattered rhonchi. Diminished breath sounds on the left. No wheezes or crackles. Abdomen soft bowel sounds are heard. No masses or tenderness. Extremities are intact. No cyanosis clubbing or edema. Skin reveals a left elbow with open superficial wound. Neurologic examination the patient to lethargic/somnolent. - Labs CBC & Chem 7: 12/03/24 06:13 12/03/24 06:13 Labs: Abnormal Lab Results - Last 24 Hours (Table) 12/03/24 12/03/24 12/04/24 Range/Units 16:29 19:59 06:06 POC Glucose (mg/dL) 198 H 144 H 122 H (70-110) mg/dL 12/04/24 Range/Units 11:47 POC Glucose (mg/dL) 144 H (70-110) mg/dL Assessment and Plan Assessment: Acute hypoxemic respiratory failure, currently on BiPAP, chest x-ray showing increased diffuse interstitial densities bilaterally, consider congestive heart failure with pulmonary vascular congestion versus atypical pneumonias. Respiratory failure, requiring mechanical ventilation, S/P extubation, November 29, 2024. Acute influenza A infection. Suspected olecranon bursitis, wound culture positive for methicillin-resistant Staphylococcus aureus. Atrial fibrillation with controlled ventricular response. Hypertension. Severe hypokalemia. Elevated troponins, possibly secondary to supply/demand mismatch. Altered mental status, under investigation, brain CT did not show any acute intracranial bleeding or mass effect. History of small cell lung cancer with metastasis to the brain, S/P chemorad iation. History of seizure disorder. History of polysubstance abuse. Plan: Plan dated November 15, 2024. The patient is seen in room 350. Currently he is on 5 L nasal cannula. He is not receiving any IV fluids. The patient has a BiPAP device in the room, with settings of 10/5, and 40% that he uses intermittently. All labs, x-rays, medications are reviewed. Will go ahead and get a follow-up chest x-ray in the morning. Additional recommendations and suggestions are forthcoming. Initial chest x-ray revealed relatively clear lung ayon, but the more recent x-ray shows some opacification, in the left lung. Prognosis is guarded. CODE STATUS should be addressed by the primary service. 50 minutes was spent with this patient, in the process of gathering data examining the patient, reviewing pertinent laboratory data x-rays, and medications, as well as discussing the di agnosis, treatment, prognosis, with the patient's primary nursing staff. Dictation was produced using [employer] software. Please excuse any grammatical, word or spelling errors. Plan dated November 16, 2024. The patient was seen today in room 350. The patient is currently on 6 L nasal cannula. He is much more awake and alert. No respiratory distress. He is not receiving any IV fluids. The patient does continue on vancomycin. Labs, x- rays, and all medications are reviewed. CODE STATUS should be addressed by the primary service. A chest x-ray will be ordered for the morning. 50 minutes was spent with this patient, in the process of gathering data, examining the patient, reviewing pertinent laboratory data, x-rays, medications, as well as discussing diagnosis, treatment plan, prognosis, with the patient's primary nursing staff, and the patient himself. As mentioned, he was much more awake and alert today. Dictation was produced using [employer] software. Pleas e excuse any grammatical, word or spelling errors. Plan dated November 17, 2024. The patient is seen again in room 350. The patient has developed atrial fibrillation with RVR. The primary service is being contacted, to ask whether or not cardiology can see this patient. Currently, the patient continues on vancomycin, for an infected elbow, with MRSA. CODE STATUS should be addressed by the primary service. All labs, x-rays, and medications are reviewed. The patient is currently on 5 L nasal cannula. He is getting saline at 5 cc an hour. We will continue to follow make recommendations. 50 minutes was spent with the patient, which included obtaining additional history, speaking to the bedside nurse, examining the patient, reviewing pertinent laboratory data, x- rays, and medications, as well as discussing the diagnosis, treatment, prognosis, with the patient. We will continue to follow. Dictation was produced using [employer] software. Please excuse any grammatical, word or spelling errors. Plan dated December 04, 2024. The patient is seen today in room 376. He continues on high flow nasal O2, at 8 L. Saturations were in the mid 90s. He continues on IV Zosyn. The patient also continues on DVT prophylaxis and GI prophylaxis. Labs, x-rays, and all medications were reviewed. We will continue to follow and make recommendations along the way. Eventually, the patient is to be [facility], [facility] in [place]. We will continue to follow make recommendations. Prognosis is guarded. Dictation was produced using [employer] software. Please excuse any grammatical, word or spelling errors. Time with Patient: Less than 30
--- NOTE | 2024-12-04 14:41 | PN ---
PROGRESS NOTE CHIEF COMPLAINT: Respiratory failure, CA of the lung, and sepsis. HISTORY OF PRESENT ILLNESS: This gentleman continues to improve. He is quite awake and alert and oriented. PHYSICAL EXAMINATION: LUNGS: Breath sounds are heard bilaterally. CARDIAC: Unremarkable and unchanged. ABDOMEN: Soft, nontender. Peripheral perfusion is much improved. IMPRESSION: 1. Respiratory failure. 2. Carcinoma of the lung. 3. Sepsis. PLAN: Progress activity and diet with PT and OT and start to consider discharge plan. MMODL / IJN: [id number] /
[2024-12-04 16:25] LABS: Glucose,Whole Blood 157 mg/dL (70-110)
[2024-12-04 20:07] LABS: Glucose,Whole Blood 187 mg/dL (70-110)
[2024-12-05] MEDS: IPRATROPIUM-ALBUTEROL 3 ML NEB INHALATION PRN (00:04)
[2024-12-05 06:09] LABS: Glucose,Whole Blood 124 mg/dL (70-110)
[2024-12-05 11:50] LABS: Glucose,Whole Blood 110 mg/dL (70-110)
--- NOTE | 2024-12-05 14:21 | P.PN ---
Subjective Progress Note Date: 12/05/24 Principal diagnosis: Reason for follow-up is left elbow septic olecranon bursitis Patient is a 59-year-old male with a past medical history significant for hypertension seizure disorder atrial fibrillation he did have a metastatic lung cancer has been brought to the hospital for worsening swelling to the left elbow with a culture positive for MRSA concerning for septic olecranon bursitis. On today's evaluation that is 12/05/2024,the patient remains to be afebrile, patient is on 8 L nasal cannula supplemental oxygen however denies any shortness of breath no chest pain or cough.Patient denies having any nausea or vomiting, no abdominal pain and no diarrhea has been reported. No new labs has been obtained today Objective - Vital Signs Vital signs: Vital Signs Temp 97.5 F L 12/05/24 10:45 Pulse 104 H 12/05/24 13:02 Resp 18 12/05/24 10:45 BP 143/108 12/05/24 10:45 Pulse Ox 94 L 12/05/24 10:45 FiO2 50 12/02/24 08:18 Intake & Output 12/04/24 12/05/24 12/05/24 18:59 06:59 18:59 Intake Total 678 20 10 Output Total 500 Balance 178 20 10 Weight 74 kg Intake: IV 20 20 10 Invasive Line 2 20 20 10 Oral 658 Output: Urine 500 Other: Voiding Method External Catheter External Catheter # Voids 1 1 # Bowel Movements 1 1 1 ABP, PAP, CO, CI - Last Documented Arterial Blood Pressure 131/85 - Exam GENERAL DESCRIPTION: Middle-age male lying in bed in no distress RESPIRATORY SYSTEM: Unlabored breathing , decreased breath sounds at bases HEART: S1 S2 regular rate and rhythm , ABDOMEN: Soft , no tenderness EXTREMITIES: No edema feet - Labs CBC & Chem 7: 12/03/24 06:13 12/03/24 06:13 Labs: Abnormal Lab Results - Last 24 Hours (Table) 12/04/24 12/04/24 12/05/24 Range/Units 16:24 20:05 06:04 POC Glucose (mg/dL) 157 H 187 H 124 H (70-110) mg/dL Assessment and Plan (1) Septic olecranon bursitis of left elbow Current Visit: Yes Status: Acute Code(s): M71.122 - OTHER INFECTIVE BURSITIS, LEFT ELBOW SNOMED Code(s): 8627254329922762 (2) Allergy to cephalosporin Current Visit: No Status: Acute Code(s): Z88.1 - ALLERGY STATUS TO OTHER ANTIBIOTIC AGENTS SNOMED Code(s): 211017120 (3) MRSA (methicillin resistant Staphylococcus aureus) infection Current Visit: Yes Status: Acute Code(s): A49.02 - METHICILLIN RESIS STAPH INFECTION, UNSP SITE SNOMED Code(s): 414126461 (4) Influenza A Current Visit: Yes Status: Acute Code(s): J10.1 - FLU DUE TO OTH IDENT INFLUENZA VIRUS W OTH RESP MANIFEST SNOMED Code(s): 175086679 (5) Pneumonia Current Visit: No Status: Acute Code(s): J18.9 - PNEUMONIA, UNSPECIFIED ORGANISM SNOMED Code(s): 470350213 Plan: 1patient being admitted to the hospital for left elbow pain swelling redness he did have a wound with a culture positive for MRSA in the outpatient setting now with concern for left elbow septic olecranon bursitis for the patient received adequate IV vancomycin. 2patient with influenza A for which the patient has completed 5-day course of Tamiflu 3patient with pneumonia blood cultures are so far negative, sputum is growing Haemophilus influenzae 4patient is afebrile patient white count has normalized, received adequate Zosyn, we will transition to oral Augmentin and monitor clinical course closely Dictation was produced using [employer] dictation software. please excuse any grammatical, word or spelling errors. Time with Patient: Less than 30
--- NOTE | 2024-12-05 14:39 | P.PN ---
Subjective Progress Note Date: 12/05/24 Principal diagnosis: Mental status changes. Patient is a 59-year-old male with past medical history significant for hypertension, atrial fibrillation, polysubstance abuse, seizure disorder, previous ventilator dependent respiratory failure, lung cancer with brain mets status post chemo and radiation. More recently, patient's been following at the [facility] for multiple wounds. He was noted to be confused. Left elbow was erythemic and warm thought to be olecranon bursitis. Wound culture of the left elbow positive for methicillin-resistant Staphylococcus aureus. Sent to the emergency department for IV antibiotics on 11/12/2024. He was admitted to the cardiac stepdown unit. Apparently, noted to have increased work of breathing, and placed on BiPAP. Pulmonary consult was placed. Patient currently being evaluated in room 350. Remains confused, lethargic and will not answer my questions. There is a bedside sitter. Brain CT done on admission did not show any acute intracranial bleeding or mass effect. Postsurgical changes in the right posterior parietal and posterior left parietal occipital lobes with craniotomy. Patient currently on BiPAP with settings 12/6 and FiO2 of 40%. Nonlabored breathing. Achieving adequate tidal volumes. Previous VBG showing a pH of 7.33, pCO2 of 47. Chest x-ray showing diffuse interstitial densities, consider CHF versus atypical pneumonias. Is afebrile. CBC: WBC count 9.6, hemoglobin 14.8, platelets 316. CMP: sodium 142, potassium 2.4, chloride 103, serum bicarb 22, BUN 59, creatinine 1.2, glucose 96. Urinalysis unremarkable for infection. LFTs not elevated. Troponin 0.06. Admission EKG: Atrial fibr illation with controlled ventricular response, rate 81 bpm, RBBB pattern. Current most recent vital signs: Temperature 97.9 F, heart rate 109 bpm, blood pressure 123/75 mmHg, nontachypneic, on the above-mentioned BiPAP settings, SpO2 99%. Progress note dated November 15, 2024. 59-year-old male who is seen today in room 350. He is in bed, on 5 L nasal cannula. The BiPAP device is set at 10/5 and 40%. He is not receiving any IV fluids. The patient has a history of hypertension, atrial fibrillation, polysubstance abuse, seizure disorder, previous ventilator dependent respiratory failure, lung cancer, with brain mets. The patient was transferred over to the hospital, because of an elbow infection, secondary to MRSA, to receive IV antibiotics in the form of vancomycin. Current laboratory data includes a white count 13, hemoglobin 12.2, hematocrit 38.8, and a platelet count of 290,000. Sodium 144, potassium 2.4, chlorides 113, CO2 23, BUN 31, and creatinine 0.61. Glucose is 115. Troponin was 0.036. N-terminal proBNP was 5560. Procalcitonin level was normal at 0.13. Blood cultures are currently negative. Chest x-ray shows significant opacification of the left lung. The right lung looks relatively normal save for possible infiltrate or atelectasis at the right lung base medially. Progress note dated November 16, 2024. 59-year-old male seen today in room 350. The patient is currently on 6 L of oxygen by nasal cannula. The patient is not receiving any fluids. He is receiving vancomycin for his MRSA infection. Clinically, he is a bit more awake and alert today than he was yesterday. Current laboratory data includes a white count 12.6, hemoglobin 13.5, hematocrit 41.6, and a platelet count of 297,000. Sodium 146, potassium 2.6, chlorides 111, CO2 25, anion gap 10, BUN 23, creatinine 0.58. Blood cultures are negative. Progress note dated November 17, 2024. 59-year-old male seen today in room 350. Currently, the patient is on nasal O2, at 5 L. He is getting saline at 5 cc an hour. According to the nurse, the patient has been having tachycardia, i.e. atrial fibrillation with RVR, and the primary service is being notified, so that may be cardiology can see the patient. Currently, white count 16.3, hemoglobin 14.1, hematocrit 44.1, platelet count 3 26,000. Sodium 147, potassium 2.8, chlorides 113, CO2 24, BUN 18, creatinine 0.6. Glucose is 204. Calcium 9.2. Procalcitonin level was normal at 0.13. Blood cultures are negative. Chest x-ray apparently shows improving aeration to the left lung. Patient was seen today on 11/30/2024, remains in the ICU, patient was extubated yesterday initially to BiPAP 09/06/50% now on nasal cannula patient is requiring Precedex, and intermittently has been requiring Haldol for extreme agitation, and yelling and cursing people around him. He is on Precedex at 0.6, he is also on Zosyn, and on Tamiflu. Today I recommended Haldol on a as needed basis, he will receive 4 mg IV push every 6 hours as needed. And he will remain on Precedex, chest x-ray continues show evidence of bilateral airspace disease. Patient will definitely need to remain in the ICU, no plans to get him transferred to the floor as he remains marginal at best. WBC count 6.9 hemoglobin 9.7 electrolytes are normal renal profile is normal Patient was seen today on 12/01/2024, patient remains in the ICU, has been tolerating the extubation well, intermittently on BiPAP 09/06/50% presently on nasal cannula, he is sitting in a chair, does not seem to be in distress. And his mentation seems to be much improved. He is not as restless and agitated agitated seems to be better since he was placed back on his Subutex. Not requir ing Haldol anymore. And not requiring any Precedex. Labs reviewed today he had relatively normal CBC WBC count is 10.2 hemoglobin is 10.0 electrolytes are normal renal profile is normal blood sugar is 121 chest x-ray continues show bibasilar patchy airspace disease opacities and interstitial prominence The patient is seen today December 02, 2024 in follow-up in the intensive care unit. He is currently awake and alert in no acute distress. He is sitting up in a chair at the bedside. He is maintaining O2 saturations in the 90s on 12 L high flow nasal cannula. He has normal saline at 10 mL/h. He remains on Zosyn. Blood culture revealed no growth. Sputum culture was positive for haemophilus influenza. White count 8.6. Hemoglobin 10.0. Platelets 199. Sodium 138. Potassium 4.2. Bicarb 29. BUN 20. Creatinine 0.59. Glucose 91. He remains on DuoNeb inhalations and prednisone. Heparin for DVT prophylaxis. Chest x-ray reveals multifocal patchy airspace opacities concerning for pneumonia. The patient is seen today December 03, 2024 in follow-up in the intensive care unit. He is currently sitting up in a chair. Awake and alert in no acute distress. He is confused at times. artificial marble worker is at the bedside. He is maintaining good O2 saturations in the 90s on 7 L high flow nasal cannula. He remains on Zosyn. He has not utilized BiPAP in greater than 24 hours. Continued on DuoNeb and elations. Continued on prednisone. Remains on Subutex. Chest x-ray read shows unchanged multifocal patchy airspace opacities. More pronounced throughout the right lung. Progress note dated December 04, 2024. 59-year-old male seen today in room 376. The patient is on a liter high flow O2. He is receiving IV Zosyn. For the past number of days, he was in the intensive care unit. Clinically, he appears to be relatively stable. He denies any shortness of breath, cough, wheezing, chest tightness. No new labs today other than a glucose of 144. Sputum sampling from November 26 shows evidence of Haemophilus influenzae. Recent chest x-ray dated December 03, 2024 shows unchanged multifocal patchy airspace opacities, concerning for pneumonia, throughout the right lung. Progress note dated December 05, 2024. 59-year-old male seen today in room 376. The patient is confused. He is got a sitter at the bedside. He is on 8 L nasal cannula. He is not receiving any IV fluids. The patient was talking about going fishing. Laboratory data includes a glucose of 110. Sputum from November 26 was positive for Haemophilus influenzae. Objective - Vital Signs Vital signs: Vital Signs Temp 97.5 F L 12/05/24 10:45 Pulse 77 12/05/24 14:00 Resp 18 12/05/24 14:00 BP 143/108 12/05/24 10:45 Pulse Ox 94 L 12/05/24 10:45 FiO2 50 12/02/24 08:18 Intake & Output 12/04/24 12/05/24 12/05/24 18:59 06:59 18:59 Intake Total 678 20 20 Output Total 500 Balance 178 20 20 Weight 74 kg 74 kg Intake: IV 20 20 20 Invasive Line 2 20 20 20 Oral 658 Output: Urine 500 Other: Voiding Method External Catheter External Catheter External Catheter # Voids 1 1 # Bowel Movements 1 1 1 ABP, PAP, CO, CI - Last Documented Arterial Blood Pressure 131/85 - Exam No acute distress, somnolent/lethargic, currently on 8 L nasal cannula. Respiratory rate in the mid to high 20s. HEENT examination is grossly unremarkable. Mucous membranes are moist. No oral lesions. Neck supple. Full range of motion. No adenopathy thyromegaly or neck vein distention. Cardiovascular examination reveals an irregular rhythm and rate. S1-S2 normal. No S3 or S4. No discernible murmur noted. Heart sounds are distant. Lungs reveal tattered rhonchi. Diminished breath sounds on the left. No wheezes or crackles. Abdomen soft bowel sounds are heard. No masses or tenderness. Extremities are intact. No cyanosis clubbing or edema. Skin reveals a left elbow with open superficial wound. Neurologic examination the patient to lethargic/somnolent. - Labs CBC & Chem 7: 12/03/24 06:13 12/03/24 06:13 Labs: Abnormal Lab Results - Last 24 Hours (Table) 12/04/24 12/04/24 12/05/24 Range/Units 16:24 20:05 06:04 POC Glucose (mg/dL) 157 H 187 H 124 H (70-110) mg/dL Assessment and Plan Assessment: Acute hypoxemic respiratory failure, secondary to Haemophilus influenzae pneumonia. Respiratory failure, requiring mechanical ventilation, S/P extubation, November 29, 2024. Acute influenza A infection. Suspected olecranon bursitis, wound culture positive for methicillin-resistant Staphylococcus aureus. Atrial fibrillation with controlled ventricular response. Hypertension. Severe hypokalemia. Elevated troponins, possibly secondary to supply/demand mismatch. Altered mental status, under investigation, brain CT did not show any acute intracranial bleeding or mass effect. History of small cell lung cancer with metastasis to the brain, S/P chemoradiation. History of seizure disorder. History of polysubstance abuse. Plan: Plan dated November 15, 2024. The patient is seen in room 350. Currently he is on 5 L nasal cannula. He is not receiving any IV fluids. The patient has a BiPAP device in the room, with settings of 10/5, and 40% that he uses intermittently. All labs, x-rays, medications are reviewed. Will go ahead and get a follow-up chest x-ray in the morning. Additional recommendations and suggestions are forthcoming. Initial chest x-ray revealed relatively clear lung ayon, but the more recent x-ray shows some opacification, in the left lung. Prognosis is guarded. CODE STATUS should be addressed by the primary service. 50 minutes was spent with this patient, in the process of gathering data examining the patient, reviewing pertinent laboratory data x-rays, and medications, as well as discussing the diagnosis, treatment, prognosis, with the patient's primary nursing staff. Dictation was produced using [employer] software. Please excuse any grammatical, word or spelling errors. Plan dated November 16, 2024. The patient was seen today in room 350. The patient is currently on 6 L nasal cannula. He is much more awake and alert. No respiratory distress. He is not receiving any IV fluids. The patient does continue on vancomycin. Labs, x- rays, and all medications are reviewed. CODE STATUS should be addressed by the primary service. A chest x-ray will be ordered for the morning. 50 minutes was spent with this patient, in the process of gathering data, examining the patient, reviewing pertinent laboratory data, x-rays, medications, as well as discussing diagnosis, treatment plan, prognosis, with the patient's primary nursing staff, and the patient himself. As mentioned, he was much more awake and alert today. Dictation was produced using [employer] software. Please excuse any grammatical, word or spelling errors. Plan dated November 17, 2024. The patient is seen again in room 350. The patient has developed atrial fibrillation with RVR. The primary service is being contacted, to ask whether or not cardiology can see this patient. Currently, the patient continues on vancomycin, for an infected elbow, with MRSA. CODE STATUS should be addressed by the primary service. All labs, x-rays, and medications are reviewed. The patient is currently on 5 L nasal cannula. He is getting saline at 5 cc an hour. We will continue to follow make recommendations. 50 minutes was spent with the patient, which included obtaining additional history, speaking to the bedside nurse, examining the patient, reviewing pertinent laboratory data, x- rays, and medications, as well as discussing the diagnosis, treatment, prognosis, with the patient. We will continue to follow. Dictation was produced using [employer] software. Please excuse any grammatical, word or spelling errors. Plan dated December 04, 2024. The patient is seen today in room 376. He continues on high flow nasal O2, at 8 L. Saturations were in the mid 90s. He continues on IV Zosyn. The patient also continues on DVT prophylaxis and GI prophylaxis. Labs, x-rays, and all medications were reviewed. We will continue to follow and make recommendations along the way. Eventually, the patient is to be transferred back to a shelter, down in [place]. We will continue to follow make recommendations. Prognosis is guarded. Dictation was produced using [employer] software. Please excuse any grammatical, word or spelling errors. Plan dated December 05, 2024. The patient was sitting on his bed, and he was very confused, and had a sitter at the bedside. He was talking about fishing. The patient continues on 8 L of oxygen. Labs, x-rays, and all medications are reviewed. The patient continues on Augmentin. He also continues on DuoNeb updrafts. We will continue to follow and make a recommendation where appropriate. Respiratory status is still tenuous. All labs, x-rays, and medications are reviewed. Dictation was produced using [employer] software. Please excuse any grammatical, word or spelling errors. Time with Patient: Less than 30
[2024-12-05 16:56] LABS: Glucose,Whole Blood 127 mg/dL (70-110)
[2024-12-05 19:46] LABS: Glucose,Whole Blood 108 mg/dL (70-110)
[2024-12-05] MEDS: AMOXIC-POT CLAV 875-125MG 1 EACH TAB PO SCH (20:41)
[2024-12-06 06:03] LABS: Glucose,Whole Blood 130 mg/dL (70-110)
[2024-12-06 11:50] LABS: Glucose,Whole Blood 217 mg/dL (70-110)
[2024-12-06] MEDS: predniSONE 20 MG TAB PO SCH (12:38)
--- NOTE | 2024-12-06 14:32 | P.PN ---
Subjective Progress Note Date: 12/06/24 Principal diagnosis: Mental status changes. Patient is a 59-year-old male with past medical history significant for hypertension, atrial fibrillation, polysubstance abuse, seizure disorder, previous ventilator dependent respiratory failure, lung cancer with brain mets status post chemo and radiation. More recently, patient's been following at the [facility] for multiple wounds. He was noted to be confused. Left elbow was erythemic and warm thought to be olecranon bursitis. Wound culture of the left elbow positive for methicillin-resistant Staphylococcus aureus. Sent to the emergency department for IV antibiotics on 11/12/2024. He was admitted to the cardiac stepdown unit. Apparently, noted to have increased work of breathing, and placed on BiPAP. Pulmonary consult was placed. Patient currently being evaluated in room 350. Remains confused, lethargic and will not answer my questions. There is a bedside sitter. Brain CT done on admission did not show any acute intracranial bleeding or mass effect. Postsurgical changes in the right posterior parietal and posterior left parietal occipital lobes with craniotomy. Patient currently on BiPAP with settings 12/6 and FiO2 of 40%. Nonlabored breathing. Achieving adequate tidal volumes. Previous VBG showing a pH of 7.33, pCO2 of 47. Chest x-ray showing diffuse interstitial densities, consider CHF versus atypical pneumonias. Is afebrile. CBC: WBC count 9.6, hemoglobin 14.8, platelets 316. CMP: sodium 142, potassium 2.4, chloride 103, serum bicarb 22, BUN 59, creatinine 1.2, glucose 96. Urinalysis unremarkable for infection. LFTs not elevated. Troponin 0.06. Admission EKG: Atrial fibr illation with controlled ventricular response, rate 81 bpm, RBBB pattern. Current most recent vital signs: Temperature 97.9 F, heart rate 109 bpm, blood pressure 123/75 mmHg, nontachypneic, on the above-mentioned BiPAP settings, SpO2 99%. Progress note dated November 15, 2024. 59-year-old male who is seen today in room 350. He is in bed, on 5 L nasal cannula. The BiPAP device is set at 10/5 and 40%. He is not receiving any IV fluids. The patient has a history of hypertension, atrial fibrillation, polysubstance abuse, seizure disorder, previous ventilator dependent respiratory failure, lung cancer, with brain mets. The patient was transferred over to the hospital, because of an elbow infection, secondary to MRSA, to receive IV antibiotics in the form of vancomycin. Current laboratory data includes a white count 13, hemoglobin 12.2, hematocrit 38.8, and a platelet count of 290,000. Sodium 144, potassium 2.4, chlorides 113, CO2 23, BUN 31, and creatinine 0.61. Glucose is 115. Troponin was 0.036. N-terminal proBNP was 5560. Procalcitonin level was normal at 0.13. Blood cultures are currently negative. Chest x-ray shows significant opacification of the left lung. The right lung looks relatively normal save for possible infiltrate or atelectasis at the right lung base medially. Progress note dated November 16, 2024. 59-year-old male seen today in room 350. The patient is currently on 6 L of oxygen by nasal cannula. The patient is not receiving any fluids. He is receiving vancomycin for his MRSA infection. Clinically, he is a bit more awake and alert today than he was yesterday. Current laboratory data includes a white count 12.6, hemoglobin 13.5, hematocrit 41.6, and a platelet count of 297,000. Sodium 146, potassium 2.6, chlorides 111, CO2 25, anion gap 10, BUN 23, creatinine 0.58. Blood cultures are negative. Progress note dated November 17, 2024. 59-year-old male seen today in room 350. Currently, the patient is on nasal O2, at 5 L. He is getting saline at 5 cc an hour. According to the nurse, the patient has been having tachycardia, i.e. atrial fibrillation with RVR, and the primary service is being notified, so that may be cardiology can see the patient. Currently, white count 16.3, hemoglobin 14.1, hematocrit 44.1, platelet count 3 26,000. Sodium 147, potassium 2.8, chlorides 113, CO2 24, BUN 18, creatinine 0.6. Glucose is 204. Calcium 9.2. Procalcitonin level was normal at 0.13. Blood cultures are negative. Chest x-ray apparently shows improving aeration to the left lung. Patient was seen today on 11/30/2024, remains in the ICU, patient was extubated yesterday initially to BiPAP 09/06/50% now on nasal cannula patient is requiring Precedex, and intermittently has been requiring Haldol for extreme agitation, and yelling and cursing people around him. He is on Precedex at 0.6, he is also on Zosyn, and on Tamiflu. Today I recommended Haldol on a as needed basis, he will receive 4 mg IV push every 6 hours as needed. And he will remain on Precedex, chest x-ray continues show evidence of bilateral airspace disease. Patient will definitely need to remain in the ICU, no plans to get him transferred to the floor as he remains marginal at best. WBC count 6.9 hemoglobin 9.7 electrolytes are normal renal profile is normal Patient was seen today on 12/01/2024, patient remains in the ICU, has been tolerating the extubation well, intermittently on BiPAP 09/06/50% presently on nasal cannula, he is sitting in a chair, does not seem to be in distress. And his mentation seems to be much improved. He is not as restless and agitated agitated seems to be better since he was placed back on his Subutex. Not requir ing Haldol anymore. And not requiring any Precedex. Labs reviewed today he had relatively normal CBC WBC count is 10.2 hemoglobin is 10.0 electrolytes are normal renal profile is normal blood sugar is 121 chest x-ray continues show bibasilar patchy airspace disease opacities and interstitial prominence The patient is seen today December 02, 2024 in follow-up in the intensive care unit. He is currently awake and alert in no acute distress. He is sitting up in a chair at the bedside. He is maintaining O2 saturations in the 90s on 12 L high flow nasal cannula. He has normal saline at 10 mL/h. He remains on Zosyn. Blood culture revealed no growth. Sputum culture was positive for haemophilus influenza. White count 8.6. Hemoglobin 10.0. Platelets 199. Sodium 138. Potassium 4.2. Bicarb 29. BUN 20. Creatinine 0.59. Glucose 91. He remains on DuoNeb inhalations and prednisone. Heparin for DVT prophylaxis. Chest x-ray reveals multifocal patchy airspace opacities concerning for pneumonia. The patient is seen today December 03, 2024 in follow-up in the intensive care unit. He is currently sitting up in a chair. Awake and alert in no acute distress. He is confused at times. casting room operator is at the bedside. He is maintaining good O2 saturations in the 90s on 7 L high flow nasal cannula. He remains on Zosyn. He has not utilized BiPAP in greater than 24 hours. Continued on DuoNeb and elations. Continued on prednisone. Remains on Subutex. Chest x-ray read shows unchanged multifocal patchy airspace opacities. More pronounced throughout the right lung. Progress note dated December 04, 2024. 59-year-old male seen today in room 376. The patient is on a liter high flow O2. He is receiving IV Zosyn. For the past number of days, he was in the intensive care unit. Clinically, he appears to be relatively stable. He denies any shortness of breath, cough, wheezing, chest tightness. No new labs today other than a glucose of 144. Sputum sampling from November 26 shows evidence of Haemophilus influenzae. Recent chest x-ray dated December 03, 2024 shows unchanged multifocal patchy airspace opacities, concerning for pneumonia, throughout the right lung. Progress note dated December 05, 2024. 59-year-old male seen today in room 376. The patient is confused. He is got a sitter at the bedside. He is on 8 L nasal cannula. He is not receiving any IV fluids. The patient was talking about going fishing. Laboratory data includes a glucose of 110. Sputum from November 26 was positive for Haemophilus influenzae. Progress note dated December 06, 2024. 59-year-old male seen today in room 376. The patient has a sitter in the room. He is on a liter high flow nasal O2. No IV fluids. The patient's examination reveals coarse rhonchi. Will add some prednisone to his regimen. The patient is not on home oxygen. No new labs today other than a glucose of 217. Yeste rday, the patient was quite confused, and thought he was going fishing. Today, he seems a bit more with it. Objective - Vital Signs Vital signs: Vital Signs Temp 97.2 F L 12/06/24 11:02 Pulse 88 12/06/24 14:00 Resp 20 12/06/24 14:00 BP 150/104 12/06/24 11:02 Pulse Ox 90 L 12/06/24 11:02 FiO2 50 12/02/24 08:18 Intake & Output 12/05/24 12/06/24 12/06/24 18:59 06:59 18:59 Intake Total 980 20 256 Balance 980 20 256 Weight 74 kg 71.5 kg Intake: IV 20 20 20 Invasive Line 2 20 20 20 Oral 960 236 Other: Voiding Method External Catheter External Catheter External Catheter # Voids 1 0 1 # Bowel Movements 1 1 ABP, PAP, CO, CI - Last Documented Arterial Blood Pressure 131/85 - Exam No acute distress, somnolent/lethargic, currently on 8 L nasal cannula. Respiratory rate in the mid to high 20s. HEENT examination is grossly unremarkable. Mucous membranes are moist. No oral lesions. Neck supple. Full range of motion. No adenopathy thyromegaly or neck vein distention. Cardiovascular examination reveals an irregular rhythm and rate. S1-S2 normal. No S3 or S4. No discernible murmur noted. Heart sounds are distant. Lungs reveal tattered rhonchi. Diminished breath sounds on the left. No wheezes or crackles. Abdomen soft bowel sounds are heard. No masses or tenderness. Extremities are intact. No cyanosis clubbing or edema. Skin reveals a left elbow with open superficial wound. Neurologic examination the patient to lethargic/somnolent. - Labs CBC & Chem 7: 12/03/24 06:13 12/03/24 06:13 Labs: Abnormal Lab Results - Last 24 Hours (Table) 12/05/24 12/06/24 12/06/24 Range/Units 16:55 06:01 11:48 POC Glucose (mg/dL) 127 H 130 H 217 H (70-110) mg/dL Assessment and Plan Assessment: Acute hypoxemic respiratory failure, secondary to Haemophilus influenzae pneumonia. Respiratory failure, requiring mechanical ventilation, S/P extubation, November 29, 2024. Acute influenza A infection. Suspected olecranon bursitis, wound culture positive for methicillin-resistant Staphylococcus aureus. Atrial fibrillation with controlled ventricular response. Hypertension. Severe hypokalemia. Elevated troponins, possibly secondary to supply/demand mismatch. Altered mental status, under investigation, brain CT did not show any acute intracranial bleeding or mass effect. History of small cell lung cancer with metastasis to the brain, S/P chemorad iation. History of seizure disorder. History of polysubstance abuse. Plan: Plan dated November 15, 2024. The patient is seen in room 350. Currently he is on 5 L nasal cannula. He is not receiving any IV fluids. The patient has a BiPAP device in the room, with settings of 10/5, and 40% that he uses intermittently. All labs, x-rays, medications are reviewed. Will go ahead and get a follow-up chest x-ray in the morning. Additional recommendations and suggestions are forthcoming. Initial chest x-ray revealed relatively clear lung ayon, but the more recent x-ray shows some opacification, in the left lung. Prognosis is guarded. CODE STATUS should be addressed by the primary service. 50 minutes was spent with this patient, in the process of gathering data examining the patient, reviewing pertinent laboratory data x-rays, and medications, as well as discussing the di agnosis, treatment, prognosis, with the patient's primary nursing staff. Dictation was produced using [employer] software. Please excuse any grammatical, word or spelling errors. Plan dated November 16, 2024. The patient was seen today in room 350. The patient is currently on 6 L nasal cannula. He is much more awake and alert. No respiratory distress. He is not receiving any IV fluids. The patient does continue on vancomycin. Labs, x- rays, and all medications are reviewed. CODE STATUS should be addressed by the primary service. A chest x-ray will be ordered for the morning. 50 minutes was spent with this patient, in the process of gathering data, examining the patient, reviewing pertinent laboratory data, x-rays, medications, as well as discussing diagnosis, treatment plan, prognosis, with the patient's primary nursing staff, and the patient himself. As mentioned, he was much more awake and alert today. Dictation was produced using [employer] software. Pleas e excuse any grammatical, word or spelling errors. Plan dated November 17, 2024. The patient is seen again in room 350. The patient has developed atrial fibrillation with RVR. The primary service is being contacted, to ask whether or not cardiology can see this patient. Currently, the patient continues on vancomycin, for an infected elbow, with MRSA. CODE STATUS should be addressed by the primary service. All labs, x-rays, and medications are reviewed. The patient is currently on 5 L nasal cannula. He is getting saline at 5 cc an hour. We will continue to follow make recommendations. 50 minutes was spent with the patient, which included obtaining additional history, speaking to the bedside nurse, examining the patient, reviewing pertinent laboratory data, x- rays, and medications, as well as discussing the diagnosis, treatment, prognosis, with the patient. We will continue to follow. Dictation was produced using [email or web address] software. Please excuse any grammatical, word or spelling errors. Plan dated December 04, 2024. The patient is seen today in room 376. He continues on high flow nasal O2, at 8 L. Saturations were in the mid 90s. He continues on IV Zosyn. The patient also continues on DVT prophylaxis and GI prophylaxis. Labs, x-rays, and all medications were reviewed. We will continue to follow and make recommendations along the way. Eventually, the patient is to be transferred back to a long term, down in [place]. We will continue to follow make recommendations. Prognosis is guarded. Dictation was produced using [email or web address] software. Please excuse any grammatical, word or spelling errors. Plan dated December 05, 2024. The patient was sitting on his bed, and he was very confused, and had a sitter at the bedside. He was talking about fishing. The patient continues on 8 L of oxygen. Labs, x-rays, and all medications are reviewed. The patient continues on Augmentin. He also continues on DuoNeb updrafts. We will continue to follow and make a recommendation where appropriate. Respiratory status is still tenuous. All labs, x-rays, and medications are reviewed. Dictation was produced using [email or web address] software. Please excuse any grammatical, word or spelling errors. Plan dated December 06, 2024. The patient is seen today in room 376. He continues on high flow nasal O2 at 8 L. Additional recommendations and suggestions are forthcoming. Labs, x-rays, and medications are reviewed. The patient was quite confused yesterday, and seems a bit more with it today. He does have a sitter in the room. No new labs today other than a glucose of 217. We will continue to follow the patient. Prognosis is guarded. Dictation was produced using [email or web address] software. Please excuse any grammatical, word or spelling errors. Time with Patient: Less than 30
--- NOTE | 2024-12-06 15:16 | P.PN ---
Subjective Progress Note Date: 12/06/24 Principal diagnosis: Reason for follow-up is left elbow septic olecranon bursitis Patient is a 59-year-old male with a past medical history significant for hypertension seizure disorder atrial fibrillation he did have a metastatic lung cancer has been brought to the hospital for worsening swelling to the left elbow with a culture positive for MRSA concerning for septic olecranon bursitis. On today's evaluation that is 12/06/2024, the patient continues to be afebrile, the patient is on 8 L high flow nasal oxygen however breathing comfortably patient was sleeping comfortably no distress no vomiting or any change reported by the sitter at the bedside. No new lab has been repeated today Objective - Vital Signs Vital signs: Vital Signs Temp 97.2 F L 12/06/24 11:02 Pulse 92 12/06/24 11:43 Resp 20 12/06/24 11:02 BP 150/104 12/06/24 11:02 Pulse Ox 90 L 12/06/24 11:02 FiO2 50 12/02/24 08:18 Intake & Output 12/05/24 12/06/24 12/06/24 18:59 06:59 18:59 Intake Total 980 20 236 Balance 980 20 236 Weight 74 kg 71.5 kg Intake: IV 20 20 Invasive Line 2 20 20 Oral 960 236 Other: Voiding Method External Catheter External Catheter # Voids 1 0 1 # Bowel Movements 1 1 ABP, PAP, CO, CI - Last Documented Arterial Blood Pressure 131/85 - Exam GENERAL DESCRIPTION: Middle-age male lying in bed in no distress RESPIRATORY SYSTEM: Unlabored breathing , decreased breath sounds at bases HEART: S1 S2 regular rate and rhythm , ABDOMEN: Soft , no tenderness EXTREMITIES: No edema feet - Labs CBC & Chem 7: 12/03/24 06:13 12/03/24 06:13 Labs: Abnormal Lab Results - Last 24 Hours (Table) 12/05/24 12/06/24 12/06/24 Range/Units 16:55 06:01 11:48 POC Glucose (mg/dL) 127 H 130 H 217 H (70-110) mg/dL Assessment and Plan (1) Septic olecranon bursitis of left elbow Current Visit: Yes Status: Acute Code(s): M71.122 - OTHER INFECTIVE BURSITIS, LEFT ELBOW SNOMED Code(s): 4502868362792416 (2) Allergy to cephalosporin Current Visit: No Status: Acute Code(s): Z88.1 - ALLERGY STATUS TO OTHER AN TIBIOTIC AGENTS SNOMED Code(s): 548044681 (3) MRSA (methicillin resistant Staphylococcus aureus) infection Current Visit: Yes Status: Acute Code(s): A49.02 - METHICILLIN RESIS STAPH INFECTION, UNSP SITE SNOMED Code(s): 225589808 (4) Influenza A Current Visit: Yes Status: Acute Code(s): J10.1 - FLU DUE TO OTH IDENT INFLUENZA VIRUS W OTH RESP MANIFEST SNOMED Code(s): 951644847 (5) Pneumonia Current Visit: No Status: Acute Code(s): J18.9 - PNEUMONIA, UNSPECIFIED ORGANISM SNOMED Code(s): 935201644 Plan: 1patient being admitted to the hospital for left elbow pain swelling redness he did have a wound with a culture positive for MRSA in the outpatient setting now with concern for left elbow septic olecranon bursitis for the patient received adequate IV vancomycin. 2patient with influenza A for which the patient has completed 5-day course of Tamiflu 3patient with pneumonia blood cultures are so far negative, sputum is growing Haemophilus influenzae 4patient is afebrile patient white count has normalized, currently on oral Augmentin and monitor clinical course closely Dictation was produced using [employer] dictation software. please excuse any grammatical, word or spelling errors. Time with Patient: Less than 30
[2024-12-06 16:39] LABS: Glucose,Whole Blood 161 mg/dL (70-110)
[2024-12-06 20:09] LABS: Glucose,Whole Blood 384 mg/dL (70-110)
[2024-12-07 06:24] LABS: Glucose,Whole Blood 127 mg/dL (70-110)
[2024-12-07 11:50] LABS: Glucose,Whole Blood 124 mg/dL (70-110)
--- NOTE | 2024-12-07 14:33 | P.PN ---
Subjective Progress Note Date: 12/07/24 Principal diagnosis: Reason for follow-up is left elbow septic olecranon bursitis Patient is a 59-year-old male with a past medical history significant for hypertension seizure disorder atrial fibrillation he did have a metastatic lung cancer has been brought to the hospital for worsening swelling to the left elbow with a culture positive for MRSA concerning for septic olecranon bursitis. On today's evaluation that is 12/07/2024, patient remains to be afebrile patient is up in the bed elevated [facility] currently on a liter nasal oxygen no vomiting or diarrhea reported by the sitter at the bedside. No new lab has been obtained today Objective - Vital Signs Vital signs: Vital Signs Temp 97.6 F 12/07/24 09:22 Pulse 104 H 12/07/24 12:12 Resp 18 12/07/24 11:40 BP 149/104 12/07/24 11:40 Pulse Ox 93 L 12/07/24 11:40 FiO2 50 12/02/24 08:18 Intake & Output 12/06/24 12/07/24 12/07/24 18:59 06:59 18:59 Intake Total 492 10 0 Output Total 800 1100 500 Balance -308 -1090 -500 Weight 72 kg Intake: IV 20 10 Invasive Line 2 20 10 Oral 472 0 Output: Urine 800 1100 500 Other: Voiding Method External Catheter External Catheter External Catheter # Voids 1 # Bowel Movements 1 2 ABP, PAP, CO, CI - Last Documented Arterial Blood Pressure 131/85 - Exam GENERAL DESCRIPTION: Middle-age male lying in bed in no distress RESPIRATORY SYSTEM: Unlabored breathing , decreased breath sounds at bases HEART: S1 S2 regular rate and rhythm , ABDOMEN: Soft , no tenderness EXTREMITIES: No edema feet - Labs CBC & Chem 7: 12/03/24 06:13 12/03/24 06:13 Labs: Abnormal Lab Results - Last 24 Hours (Table) 12/06/24 12/06/24 12/07/24 Range/Units 16:37 19:49 06:06 POC Glucose (mg/dL) 161 H 384 H 127 H (70-110) mg/dL 12/07/24 Range/Units 11:39 POC Glucose (mg/dL) 124 H (70-110) mg/dL Assessment and Plan (1) Septic olecranon bursitis of left elbow Current Visit: Yes Status: Acute Code(s): M71.122 - OTHER INFECTIVE BURSITIS, LEFT ELBOW SNOMED Code(s): 0769126463721555 (2) Allergy to cephalosporin Current Visit: No Status: Acute Code(s): Z88.1 - ALLERGY STATUS TO OTHER ANTIBIOTIC AGENTS SNOMED Code(s): 805654530 (3) MRSA (methicillin resistant Staphylococcus aureus) infection Current Visit: Yes Status: Acute Code(s): A49.02 - METHICILLIN RESIS STAPH INFECTION, UNSP SITE SNOMED Code(s): 361143979 (4) Influenza A Current Visit: Yes Status: Acute Code(s): J10.1 - FLU DUE TO OTH IDENT INFLUENZA VIRUS W OTH RESP MANIFEST SNOMED Code(s): 362735524 (5) Pneumonia Current Visit: No Status: Acute Code(s): J18.9 - PNEUMONIA, UNSPECIFIED ORGANISM SNOMED Code(s): 281313229 Plan: 1patient being admitted to the hospital for left elbow pain swelling redness he did have a wound with a culture positive for MRSA in the outpatient setting now with concern for left elbow septic olecranon bursitis for the patient received adequate IV vancomycin and did have feeling of his left elbow ulcer. 2patient with influenza A for which the patient has completed 5-day course of Tamiflu 3patient with pneumonia blood cultures are so far negative, sputum is growing Haemophilus influenzae 4patient is afebrile patient white count has normalized, we will consider short course of oral Augmentin and monitor clinical course closely Dictation was produced using [employer] dictation software. please excuse any grammatical, word or spelling errors. Time with Patient: Less than 30
--- NOTE | 2024-12-07 14:38 | P.PN ---
Subjective Progress Note Date: 12/07/24 Principal diagnosis: Mental status changes. Patient is a 59-year-old male with past medical history significant for hypertension, atrial fibrillation, polysubstance abuse, seizure disorder, previous ventilator dependent respiratory failure, lung cancer with brain mets status post chemo and radiation. More recently, patient's been following at the [facility] [place] for multiple wounds. He was noted to be confused. Left elbow was erythemic and warm thought to be olecranon bursitis. Wound culture of the left elbow positive for methicillin-resistant Staphylococcus aureus. Sent to the emergency department for IV antibiotics on 11/12/2024. He was admitted to the cardiac stepdown unit. Apparently, noted to have increased work of breathing, and placed on BiPAP. Pulmonary consult was placed. Patient currently being evaluated in room 350. Remains confused, lethargic and will not answer my questions. There is a bedside sitter. Brain CT done on admission did not show any acute intracranial bleeding or mass effect. Postsurgical changes in the right posterior parietal and posterior left parietal occipital lobes with craniotomy. Patient currently on BiPAP with settings 12/6 and FiO2 of 40%. Nonlabored breathing. Achieving adequate tidal volumes. Previous VBG showing a pH of 7.33, pCO2 of 47. Chest x-ray showing diffuse interstitial densities, consider CHF versus atypical pneumonias. Is afebrile. CBC: WBC count 9.6, hemoglobin 14.8, platelets 316. CMP: sodium 142, potassium 2.4, chloride 103, serum bicarb 22, BUN 59, creatinine 1.2, glucose 96. Urinalysis unremarkable for infection. LFTs not elevated. Troponin 0.06. Admission EKG: Atrial fibr illation with controlled ventricular response, rate 81 bpm, RBBB pattern. Current most recent vital signs: Temperature 97.9 F, heart rate 109 bpm, blood pressure 123/75 mmHg, nontachypneic, on the above-mentioned BiPAP settings, SpO2 99%. Progress note dated November 15, 2024. 59-year-old male who is seen today in room 350. He is in bed, on 5 L nasal cannula. The BiPAP device is set at 10/5 and 40%. He is not receiving any IV fluids. The patient has a history of hypertension, atrial fibrillation, polysubstance abuse, seizure disorder, previous ventilator dependent respiratory failure, lung cancer, with brain mets. The patient was transferred over to the hospital, because of an elbow infection, secondary to MRSA, to receive IV antibiotics in the form of vancomycin. Current laboratory data includes a white count 13, hemoglobin 12.2, hematocrit 38.8, and a platelet count of 290,000. Sodium 144, potassium 2.4, chlorides 113, CO2 23, BUN 31, and creatinine 0.61. Glucose is 115. Troponin was 0.036. N-terminal proBNP was 5560. Procalcitonin level was normal at 0.13. Blood cultures are currently negative. Chest x-ray shows significant opacification of the left lung. The right lung looks relatively normal save for possible infiltrate or atelectasis at the right lung base medially. Progress note dated November 16, 2024. 59-year-old male seen today in room 350. The patient is currently on 6 L of oxygen by nasal cannula. The patient is not receiving any fluids. He is receiving vancomycin for his MRSA infection. Clinically, he is a bit more awake and alert today than he was yesterday. Current laboratory data includes a white count 12.6, hemoglobin 13.5, hematocrit 41.6, and a platelet count of 297,000. Sodium 146, potassium 2.6, chlorides 111, CO2 25, anion gap 10, BUN 23, creatinine 0.58. Blood cultures are negative. Progress note dated November 17, 2024. 59-year-old male seen today in room 350. Currently, the patient is on nasal O2, at 5 L. He is getting saline at 5 cc an hour. According to the nurse, the patient has been having tachycardia, i.e. atrial fibrillation with RVR, and the primary service is being notified, so that may be cardiology can see the patient. Currently, white count 16.3, hemoglobin 14.1, hematocrit 44.1, platelet count 3 26,000. Sodium 147, potassium 2.8, chlorides 113, CO2 24, BUN 18, creatinine 0.6. Glucose is 204. Calcium 9.2. Procalcitonin level was normal at 0.13. Blood cultures are negative. Chest x-ray apparently shows improving aeration to the left lung. Patient was seen today on 11/30/2024, remains in the ICU, patient was extubated yesterday initially to BiPAP 09/06/50% now on nasal cannula patient is requiring Precedex, and intermittently has been requiring Haldol for extreme agitation, and yelling and cursing people around him. He is on Precedex at 0.6, he is also on Zosyn, and on Tamiflu. Today I recommended Haldol on a as needed basis, he will receive 4 mg IV push every 6 hours as needed. And he will remain on Precedex, chest x-ray continues show evidence of bilateral airspace disease. Patient will definitely need to remain in the ICU, no plans to get him transferred to the floor as he remains marginal at best. WBC count 6.9 hemoglobin 9.7 electrolytes are normal renal profile is normal Patient was seen today on 12/01/2024, patient remains in the ICU, has been tolerating the extubation well, intermittently on BiPAP 09/06/50% presently on nasal cannula, he is sitting in a chair, does not seem to be in distress. And his mentation seems to be much improved. He is not as restless and agitated agitated seems to be better since he was placed back on his Subutex. Not requir ing Haldol anymore. And not requiring any Precedex. Labs reviewed today he had relatively normal CBC WBC count is 10.2 hemoglobin is 10.0 electrolytes are normal renal profile is normal blood sugar is 121 chest x-ray continues show bibasilar patchy airspace disease opacities and interstitial prominence The patient is seen today December 02, 2024 in follow-up in the intensive care unit. He is currently awake and alert in no acute distress. He is sitting up in a chair at the bedside. He is maintaining O2 saturations in the 90s on 12 L high flow nasal cannula. He has normal saline at 10 mL/h. He remains on Zosyn. Blood culture revealed no growth. Sputum culture was positive for haemophilus influenza. White count 8.6. Hemoglobin 10.0. Platelets 199. Sodium 138. Potassium 4.2. Bicarb 29. BUN 20. Creatinine 0.59. Glucose 91. He remains on DuoNeb inhalations and prednisone. Heparin for DVT prophylaxis. Chest x-ray reveals multifocal patchy airspace opacities concerning for pneumonia. The patient is seen today December 03, 2024 in follow-up in the intensive care unit. He is currently sitting up in a chair. Awake and alert in no acute distress. He is confused at times. stringer up soldering machine is at the bedside. He is maintaining good O2 saturations in the 90s on 7 L high flow nasal cannula. He remains on Zosyn. He has not utilized BiPAP in greater than 24 hours. Continued on DuoNeb and elations. Continued on prednisone. Remains on Subutex. Chest x-ray read shows unchanged multifocal patchy airspace opacities. More pronounced throughout the right lung. Progress note dated December 04, 2024. 59-year-old male seen today in room 376. The patient is on a liter high flow O2. He is receiving IV Zosyn. For the past number of days, he was in the intensive care unit. Clinically, he appears to be relatively stable. He denies any shortness of breath, cough, wheezing, chest tightness. No new labs today other than a glucose of 144. Sputum sampling from November 26 shows evidence of Haemophilus influenzae. Recent chest x-ray dated December 03, 2024 shows unchanged multifocal patchy airspace opacities, concerning for pneumonia, throughout the right lung. Progress note dated December 05, 2024. 59-year-old male seen today in room 376. The patient is confused. He is got a sitter at the bedside. He is on 8 L nasal cannula. He is not receiving any IV fluids. The patient was talking about going fishing. Laboratory data includes a glucose of 110. Sputum from November 26 was positive for Haemophilus influenzae. Progress note dated December 06, 2024. 59-year-old male seen today in room 376. The patient has a sitter in the room. He is on a liter high flow nasal O2. No IV fluids. The patient's examination reveals coarse rhonchi. Will add some prednisone to his regimen. The patient is not on home oxygen. No new labs today other than a glucose of 217. Yeste rday, the patient was quite confused, and thought he was going fishing. Today, he seems a bit more with it. Progress note dated December 07, 2024. 59-year-old male seen today in room 376. The patient continues on a liter high flow nasal O2. The patient is quite bronchospastic, and he will be given Solu- Medrol in place of prednisone, and we will add back budesonide, and formoterol. The patient continues on high flow O2, at 8 L. Laboratory data includes a glucose of 124. No additional laboratory are noted. Sputum from November 26 was positive for Haemophilus influenzae. No recent chest x-ray. Objective - Vital Signs Vital signs: Vital Signs Temp 97.6 F 12/07/24 09:22 Pulse 104 H 12/07/24 12:12 Resp 18 12/07/24 11:40 BP 149/104 12/07/24 11:40 Pulse Ox 93 L 12/07/24 11:40 FiO2 50 12/02/24 08:18 Intake & Output 12/06/24 12/07/24 12/07/24 18:59 06:59 18:59 Intake Total 492 10 0 Output Total 800 1100 500 Balance -308 -1090 -500 Weight 72 kg Intake: IV 20 10 Invasive Line 2 20 10 Oral 472 0 Output: Urine 800 1100 500 Other: Voiding Method External Catheter External Catheter External Catheter # Voids 1 # Bowel Movements 1 2 ABP, PAP, CO, CI - Last Documented Arterial Blood Pressure 131/85 - Exam No acute distress, somnolent/lethargic, currently on 8 L nasal cannula. Respiratory rate in the mid to high 20s. HEENT examination is grossly unremarkable. Mucous membranes are moist. No oral lesions. Neck supple. Full range of motion. No adenopathy thyromegaly or neck vein distention. Cardiovascular examination reveals an irregular rhythm and rate. S1-S2 normal. No S3 or S4. No discernible murmur noted. Heart sounds are distant. Lungs reveal scattered mild to moderate inspiratory and expiratory rhonchi, and expiratory wheezes. There are no crackles. Breath sounds equal bilaterally. Abdomen soft bowel sounds are heard. No masses or tenderness. Extremities are intact. No cyanosis clubbing or edema. Skin reveals a left elbow with open superficial wound. Neurologic examination the patient to lethargic/somnolent. - Labs CBC & Chem 7: 12/03/24 06:13 12/03/24 06:13 Labs: Abnormal Lab Results - Last 24 Hours (Table) 12/06/24 12/06/24 12/07/24 Range/Units 16:37 19:49 06:06 POC Glucose (mg/dL) 161 H 384 H 127 H (70-110) mg/dL 12/07/24 Range/Units 11:39 POC Glucose (mg/dL) 124 H (70-110) mg/dL Assessment and Plan Assessment: Acute hypoxemic respiratory failure, secondary to Haemophilus influenzae pneumonia. Respiratory failure, requiring mechanical ventilation, S/P extubation, November 29, 2024. Acute influenza A infection. Suspected olecranon bursitis, wound culture positive for methicillin-resistant Staphylococcus aureus. Atrial fibrillation with controlled ventricular response. Hypertension. Severe hypokalemia. Elevated troponins, possibly secondary to supply/demand mismatch. Altered mental status, under investigation, brain CT did not show any acute intracranial bleeding or mass effect. History of small cell lung cancer with metastasis to the brain, S/P chemoradiation. History of seizure disorder. History of polysubstance abuse. Plan: Plan dated November 15, 2024. The patient is seen in room 350. Currently he is on 5 L nasal cannula. He is not receiving any IV fluids. The patient has a BiPAP device in the room, with settings of 10/5, and 40% that he uses intermittently. All labs, x-rays, medications are reviewed. Will go ahead and get a follow-up chest x-ray in the morning. Additional recommendations and suggestions are forthcoming. Initial chest x-ray revealed relatively clear lung ayon, but the more recent x-ray shows some opacification, in the left lung. Prognosis is guarded. CODE STATUS should be addressed by the primary service. 50 minutes was spent with this patient, in the process of gathering data examining the patient, reviewing pertinent laboratory data x-rays, and medications, as well as discussing the diagnosis, treatment, prognosis, with the patient's primary nursing staff. Dictation was produced using [employer] dictation software. Please excuse any grammatical, word or spelling errors. Plan dated November 16, 2024. The patient was seen today in room 350. The patient is currently on 6 L nasal cannula. He is much more awake and alert. No respiratory distress. He is not receiving any IV fluids. The patient does continue on vancomycin. Labs, x- rays, and all medications are reviewed. CODE STATUS should be addressed by the primary service. A chest x-ray will be ordered for the morning. 50 minutes was spent with this patient, in the process of gathering data, examining the patient, reviewing pertinent laboratory data, x-rays, medications, as well as discussing diagnosis, treatment plan, prognosis, with the patient's primary nursing staff, and the patient himself. As mentioned, he was much more awake and alert today. Dictation was produced using [employer] software. Please excuse any grammatical, word or spelling errors. Plan dated November 17, 2024. The patient is seen again in room 350. The patient has developed atrial fibrillation with RVR. The primary service is being contacted, to ask whether or not cardiology can see this patient. Currently, the patient continues on vancomycin, for an infected elbow, with MRSA. CODE STATUS should be addressed by the primary service. All labs, x-rays, and medications are reviewed. The patient is currently on 5 L nasal cannula. He is getting saline at 5 cc an hour. We will continue to follow make recommendations. 50 minutes was spent with the patient, which included obtaining additional history, speaking to the bedside nurse, examining the patient, reviewing pertinent laboratory data, x- rays, and medications, as well as discussing the diagnosis, treatment, prognosis, with the patient. We will continue to follow. Dictation was produced using [employer] software. Please excuse any grammatical, word or spelling errors. Plan dated December 04, 2024. The patient is seen today in room 376. He continues on high flow nasal O2, at 8 L. Saturations were in the mid 90s. He continues on IV Zosyn. The patient also continues on DVT prophylaxis and GI prophylaxis. Labs, x-rays, and all medications were reviewed. We will continue to follow and make recommendations along the way. Eventually, the patient is to be transferred back to a senior care, down in [place]. We will continue to follow make recommendations. Prognosis is guarded. Dictation was produced using [employer] software. Please excuse any grammatical, word or spelling errors. Plan dated December 05, 2024. The patient was sitting on his bed, and he was very confused, and had a sitter at the bedside. He was talking about fishing. The patient continues on 8 L of oxygen. Labs, x-rays, and all medications are reviewed. The patient continues on Augmentin. He also continues on DuoNeb updrafts. We will continue to follow and make a recommendation where appropriate. Respiratory status is still tenuous. All labs, x-rays, and medications are reviewed. Dictation was produced using [employer] software. Please excuse any grammatical, word or spelling errors. Plan dated December 06, 2024. The patient is seen today in room 376. He continues on high flow nasal O2 at 8 L. Additional recommendations and suggestions are forthcoming. Labs, x-rays, and medications are reviewed. The patient was quite confused yesterday, and seems a bit more with it today. He does have a sitter in the room. No new labs today other than a glucose of 217. We will continue to follow the patient. Prognosis is guarded. Dictation was produced using [employer] software. Please excuse any grammatical, word or spelling errors. Plan dated December 07, 2024. The patient is again seen in room 376. He continues on high flow nasal O2 at 8 L. The patient will get Solu-Medrol in place of prednisone. Will give him 60 mg every 6 hours. In addition we add budesonide 1 mg, mixed with formoterol 20 mcg, twice a day. His saturations on the 8 L or 93%. I have asked respiratory to try to wean down his FiO2 if possible. Labs, x-rays, and all medications are reviewed. We will continue to follow the patient, and make recommendations along the way. The patient's overall prognosis remains guarded. Dictation was produced using [employer] software. Please excuse any grammatical, word or spelling errors. Time with Patient: Less than 30
[2024-12-07] MEDS: methylPREDNISolone SOD SUCCI 125 MG/2 ML VIAL IV SCH (17:36)
[2024-12-07 19:42] LABS: Glucose,Whole Blood 246 mg/dL (70-110)
[2024-12-07 20:57] LABS: Glucose,Whole Blood 218 mg/dL (70-110)
[2024-12-07] MEDS: BUDESONIDE 1 MG/2 ML NEBU INHALATION SCH (21:15)
[2024-12-07] MEDS: FORMOTEROL FUMARATE 20 MCG/2 ML NEBU INHALATION SCH (21:15)
[2024-12-07 22:54] LABS: Glucose,Whole Blood 295 mg/dL (70-110)
[2024-12-08 06:02] LABS: Glucose,Whole Blood 223 mg/dL (70-110)
[2024-12-08 11:42] LABS: Glucose,Whole Blood 241 mg/dL (70-110)
--- NOTE | 2024-12-08 11:50 | PN ---
PROGRESS NOTE DATE OF SERVICE: 12/05/2024 CHIEF COMPLAINT: Status post acute respiratory failure. HISTORY OF PRESENT ILLNESS: This gentleman continues to improve. He is still extremely weak. He can ambulate. He is more awake, alert, and oriented each day. PHYSICAL EXAMINATION: CHEST: Clear. CARDIAC: Unremarkable. ABDOMEN: Flat and soft. EXTREMITIES: Perfused better and erythematous and not cyanotic. IMPRESSION: 1. Acute respiratory failure. 2. Carcinoma of the lung. 3. Sepsis. PLAN: Continue with increased activity, diet, and physical therapy and start considering a discharge plan. MMODL / IJN: [id number] /
--- NOTE | 2024-12-08 13:56 | PN ---
PROGRESS NOTE CHIEF COMPLAINT: Acute respiratory failure, pneumonitis, CA of the lung. HISTORY OF PRESENT ILLNESS: This gentleman's condition is unchanged and is slowly improving and he will require post hospitalization rehab. PHYSICAL EXAMINATION: VITAL SIGNS: Normal. He is awake. CHEST: Clear. CARDIAC: Normal. IMPRESSION: 1. Acute respiratory failure. 2. Chronic obstructive pulmonary disease. 3. Carcinoma of the lung. PLAN: Discharge planning. MMODL / IJN: [id number] /
--- NOTE | 2024-12-08 13:56 | PN ---
PROGRESS NOTE DATE OF SERVICE: 12/06/2024 CHIEF COMPLAINT: Acute respiratory failure, sepsis, CA of the lung. HISTORY OF PRESENT ILLNESS: This gentleman continues to do fairly well. He is awake and alert. PHYSICAL EXAMINATION: CHEST: Clear. CARDIAC: Normal. ABDOMEN: Soft, nontender. EXTREMITIES: Well perfused. IMPRESSION: 1. Acute respiratory failure. 2. Carcinoma of the lung. 3. Congestive heart failure. PLAN: Continue to try to increase activity, diet. Discharge planning has been requested. MMODL / ZOEN: [id number] /
--- NOTE | 2024-12-08 14:07 | P.PN ---
Subjective Progress Note Date: 12/08/24 Principal diagnosis: Mental status changes. Patient is a 59-year-old male with past medical history significant for hypertension, atrial fibrillation, polysubstance abuse, seizure disorder, previous ventilator dependent respiratory failure, lung cancer with brain mets status post chemo and radiation. More recently, patient's been following at the [facility] [place] for multiple wounds. He was noted to be confused. Left elbow was erythemic and warm thought to be olecranon bursitis. Wound culture of the left elbow positive for methicillin-resistant Staphylococcus aureus. Sent to the emergency department for IV antibiotics on 11/12/2024. He was admitted to the cardiac stepdown unit. Apparently, noted to have increased work of breathing, and placed on BiPAP. Pulmonary consult was placed. Patient currently being evaluated in room 350. Remains confused, lethargic and will not answer my questions. There is a bedside sitter. Brain CT done on admission did not show any acute intracranial bleeding or mass effect. Postsurgical changes in the right posterior parietal and posterior left parietal occipital lobes with craniotomy. Patient currently on BiPAP with settings 12/6 and FiO2 of 40%. Nonlabored breathing. Achieving adequate tidal volumes. Previous VBG showing a pH of 7.33, pCO2 of 47. Chest x-ray showing diffuse interstitial densities, consider CHF versus atypical pneumonias. Is afebrile. CBC: WBC count 9.6, hemoglobin 14.8, platelets 316. CMP: sodium 142, potassium 2.4, chloride 103, serum bicarb 22, BUN 59, creatinine 1.2, glucose 96. Urinalysis unremarkable for infection. LFTs not elevated. Troponin 0.06. Admission EKG: Atrial fibr illation with controlled ventricular response, rate 81 bpm, RBBB pattern. Current most recent vital signs: Temperature 97.9 F, heart rate 109 bpm, blood pressure 123/75 mmHg, nontachypneic, on the above-mentioned BiPAP settings, SpO2 99%. Progress note dated November 15, 2024. 59-year-old male who is seen today in room 350. He is in bed, on 5 L nasal cannula. The BiPAP device is set at 10/5 and 40%. He is not receiving any IV fluids. The patient has a history of hypertension, atrial fibrillation, polysubstance abuse, seizure disorder, previous ventilator dependent respiratory failure, lung cancer, with brain mets. The patient was transferred over to the hospital, because of an elbow infection, secondary to MRSA, to receive IV antibiotics in the form of vancomycin. Current laboratory data includes a white count 13, hemoglobin 12.2, hematocrit 38.8, and a platelet count of 290,000. Sodium 144, potassium 2.4, chlorides 113, CO2 23, BUN 31, and creatinine 0.61. Glucose is 115. Troponin was 0.036. N-terminal proBNP was 5560. Procalcitonin level was normal at 0.13. Blood cultures are currently negative. Chest x-ray shows significant opacification of the left lung. The right lung looks relatively normal save for possible infiltrate or atelectasis at the right lung base medially. Progress note dated November 16, 2024. 59-year-old male seen today in room 350. The patient is currently on 6 L of oxygen by nasal cannula. The patient is not receiving any fluids. He is receiving vancomycin for his MRSA infection. Clinically, he is a bit more awake and alert today than he was yesterday. Current laboratory data includes a white count 12.6, hemoglobin 13.5, hematocrit 41.6, and a platelet count of 297,000. Sodium 146, potassium 2.6, chlorides 111, CO2 25, anion gap 10, BUN 23, creatinine 0.58. Blood cultures are negative. Progress note dated November 17, 2024. 59-year-old male seen today in room 350. Currently, the patient is on nasal O2, at 5 L. He is getting saline at 5 cc an hour. According to the nurse, the patient has been having tachycardia, i.e. atrial fibrillation with RVR, and the primary service is being notified, so that may be cardiology can see the patient. Currently, white count 16.3, hemoglobin 14.1, hematocrit 44.1, platelet count 3 26,000. Sodium 147, potassium 2.8, chlorides 113, CO2 24, BUN 18, creatinine 0.6. Glucose is 204. Calcium 9.2. Procalcitonin level was normal at 0.13. Blood cultures are negative. Chest x-ray apparently shows improving aeration to the left lung. Patient was seen today on 11/30/2024, remains in the ICU, patient was extubated yesterday initially to BiPAP 09/06/50% now on nasal cannula patient is requiring Precedex, and intermittently has been requiring Haldol for extreme agitation, and yelling and cursing people around him. He is on Precedex at 0.6, he is also on Zosyn, and on Tamiflu. Today I recommended Haldol on a as needed basis, he will receive 4 mg IV push every 6 hours as needed. And he will remain on Precedex, chest x-ray continues show evidence of bilateral airspace disease. Patient will definitely need to remain in the ICU, no plans to get him transferred to the floor as he remains marginal at best. WBC count 6.9 hemoglobin 9.7 electrolytes are normal renal profile is normal Patient was seen today on 12/01/2024, patient remains in the ICU, has been tolerating the extubation well, intermittently on BiPAP 09/06/50% presently on nasal cannula, he is sitting in a chair, does not seem to be in distress. And his mentation seems to be much improved. He is not as restless and agitated agitated seems to be better since he was placed back on his Subutex. Not requir ing Haldol anymore. And not requiring any Precedex. Labs reviewed today he had relatively normal CBC WBC count is 10.2 hemoglobin is 10.0 electrolytes are normal renal profile is normal blood sugar is 121 chest x-ray continues show bibasilar patchy airspace disease opacities and interstitial prominence The patient is seen today December 02, 2024 in follow-up in the intensive care unit. He is currently awake and alert in no acute distress. He is sitting up in a chair at the bedside. He is maintaining O2 saturations in the 90s on 12 L high flow nasal cannula. He has normal saline at 10 mL/h. He remains on Zosyn. Blood culture revealed no growth. Sputum culture was positive for haemophilus influenza. White count 8.6. Hemoglobin 10.0. Platelets 199. Sodium 138. Potassium 4.2. Bicarb 29. BUN 20. Creatinine 0.59. Glucose 91. He remains on DuoNeb inhalations and prednisone. Heparin for DVT prophylaxis. Chest x-ray reveals multifocal patchy airspace opacities concerning for pneumonia. The patient is seen today December 03, 2024 in follow-up in the intensive care unit. He is currently sitting up in a chair. Awake and alert in no acute distress. He is confused at times. surgical dental assistant is at the bedside. He is maintaining good O2 saturations in the 90s on 7 L high flow nasal cannula. He remains on Zosyn. He has not utilized BiPAP in greater than 24 hours. Continued on DuoNeb and elations. Continued on prednisone. Remains on Subutex. Chest x-ray read shows unchanged multifocal patchy airspace opacities. More pronounced throughout the right lung. Progress note dated December 04, 2024. 59-year-old male seen today in room 376. The patient is on a liter high flow O2. He is receiving IV Zosyn. For the past number of days, he was in the intensive care unit. Clinically, he appears to be relatively stable. He denies any shortness of breath, cough, wheezing, chest tightness. No new labs today other than a glucose of 144. Sputum sampling from November 26 shows evidence of Haemophilus influenzae. Recent chest x-ray dated December 03, 2024 shows unchanged multifocal patchy airspace opacities, concerning for pneumonia, throughout the right lung. Progress note dated December 05, 2024. 59-year-old male seen today in room 376. The patient is confused. He is got a sitter at the bedside. He is on 8 L nasal cannula. He is not receiving any IV fluids. The patient was talking about going fishing. Laboratory data includes a glucose of 110. Sputum from November 26 was positive for Haemophilus influenzae. Progress note dated December 06, 2024. 59-year-old male seen today in room 376. The patient has a sitter in the room. He is on a liter high flow nasal O2. No IV fluids. The patient's examination reveals coarse rhonchi. Will add some prednisone to his regimen. The patient is not on home oxygen. No new labs today other than a glucose of 217. Yeste rday, the patient was quite confused, and thought he was going fishing. Today, he seems a bit more with it. Progress note dated December 07, 2024. 59-year-old male seen today in room 376. The patient continues on a liter high flow nasal O2. The patient is quite bronchospastic, and he will be given Solu- Medrol in place of prednisone, and we will add back budesonide, and formoterol. The patient continues on high flow O2, at 8 L. Laboratory data includes a glucose of 124. No additional laboratory are noted. Sputum from November 26 was positive for Haemophilus influenzae. No recent chest x-ray. Progress note dated December 08, 2024. 59-year-old male seen today in room 376. The patient is currently on high flow nasal O2 at 8 L. The patient was given corticosteroids yesterday, IV, because of his ongoing bronchospasm. He also continues on budesonide, formoterol, and breathing treatments. Clinically, the patient looks relatively stable, and sounds much worse that he looks. He does have a sitter in the room. No new labs today other than a glucose of 241. Objective - Vital Signs Vital signs: Vital Signs Temp 97.4 F L 12/08/24 09:30 Pulse 105 H 12/08/24 12:33 Resp 20 12/08/24 12:33 BP 157/104 12/08/24 09:30 Pulse Ox 95 12/08/24 12:33 FiO2 50 12/02/24 08:18 Intake & Output 12/07/24 12/08/24 12/08/24 17:59 06:59 18:59 Intake Total 480 Output Total 300 Balance 180 Weight Intake: Oral 480 Output: Urine 300 Other: Voiding Method External Catheter # Bowel Movements 1 ABP, PAP, CO, CI - Last Documented Arterial Blood Pressure 131/85 - Exam No acute distress, somnolent/lethargic, currently on 8 L nasal cannula. Respiratory rate in the mid to high 20s. HEENT examination is grossly unremarkable. Mucous membranes are moist. No oral lesions. Neck supple. Full range of motion. No adenopathy thyromegaly or neck vein distention. Cardiovascular examination reveals an irregular rhythm and rate. S1-S2 normal. No S3 or S4. No discernible murmur noted. Heart sounds are distant. Lungs reveal scattered mild to moderate inspiratory and expiratory rhonchi, and expiratory wheezes. There are no crackles. Breath sounds equal bilaterally. Abdomen soft bowel sounds are heard. No masses or tenderness. Extremities are intact. No cyanosis clubbing or edema. Skin reveals a left elbow with open superficial wound. Neurologic examination the patient to lethargic/somnolent. - Labs CBC & Chem 7: 12/03/24 06:13 12/03/24 06:13 Labs: Abnormal Lab Results - Last 24 Hours (Table) 12/07/24 12/07/24 12/07/24 Range/Units 16:59 20:54 22:52 POC Glucose (mg/dL) 246 H 218 H 295 H (70-110) mg/dL 12/08/24 12/08/24 Range/Units 06:01 11:41 POC Glucose (mg/dL) 223 H 241 H (70-110) mg/dL Assessment and Plan Assessment: Acute hypoxemic respiratory failure, secondary to Haemophilus influenzae pneumonia. Respiratory failure, requiring mechanical ventilation, S/P extubation, November 29, 2024. Acute influenza A infection. Suspected olecranon bursitis, wound culture positive for methicillin-resistant Staphylococcus aureus. Atrial fibrillation with controlled ventricular response. Hypertension. Severe hypokalemia. Elevated troponins, possibly secondary to supply/demand mismatch. Altered mental status, under investigation, brain CT did not show any acute intracranial bleeding or mass effect. History of small cell lung cancer with metastasis to the brain, S/P chemoradiation. History of seizure disorder. History of polysubstance abuse. Plan: Plan dated November 15, 2024. The patient is seen in room 350. Currently he is on 5 L nasal cannula. He is not receiving any IV fluids. The patient has a BiPAP device in the room, with settings of 10/5, and 40% that he uses intermittently. All labs, x-rays, medications are reviewed. Will go ahead and get a follow-up chest x-ray in the morning. Additional recommendations and suggestions are forthcoming. Initial chest x-ray revealed relatively clear lung ayon, but the more recent x-ray shows some opacification, in the left lung. Prognosis is guarded. CODE STATUS should be addressed by the primary service. 50 minutes was spent with this patient, in the process of gathering data examining the patient, reviewing pertinent laboratory data x-rays, and medications, as well as discussing the diagnosis, treatment, prognosis, with the patient's primary nursing staff. Dictation was produced using [employer] dictation software. Please excuse any grammatical, word or spelling errors. Plan dated November 16, 2024. The patient was seen today in room 350. The patient is currently on 6 L nasal cannula. He is much more awake and alert. No respiratory distress. He is not receiving any IV fluids. The patient does continue on vancomycin. Labs, x- rays, and all medications are reviewed. CODE STATUS should be addressed by the primary service. A chest x-ray will be ordered for the morning. 50 minutes was spent with this patient, in the process of gathering data, examining the patient, reviewing pertinent laboratory data, x-rays, medications, as well as discussing diagnosis, treatment plan, prognosis, with the patient's primary n ursing staff, and the patient himself. As mentioned, he was much more awake and alert today. Dictation was produced using [employer] software. Please excuse any grammatical, word or spelling errors. Plan dated November 17, 2024. The patient is seen again in room 350. The patient has developed atrial fibrillation with RVR. The primary service is being contacted, to ask whether or not cardiology can see this patient. Currently, the patient continues on vancomycin, for an infected elbow, with MRSA. CODE STATUS should be addressed by the primary service. All labs, x-rays, and medications are reviewed. The patient is currently on 5 L nasal cannula. He is getting saline at 5 cc an hour. We will continue to follow make recommendations. 50 minutes was spent with the patient, which included obtaining additional history, speaking to the bedside nurse, examining the patient, reviewing pertinent laboratory data, x- rays, and medications, as well as discussing the diagnosis, treatment, prognosis, with the patient. We will continue to follow. Dictation was produced using [employer] software. Please excuse any grammatical, word or spelling errors. Plan dated December 04, 2024. The patient is seen today in room 376. He continues on high flow nasal O2, at 8 L. Saturations were in the mid 90s. He continues on IV Zosyn. The patient also continues on DVT prophylaxis and GI prophylaxis. Labs, x-rays, and all medications were reviewed. We will continue to follow and make recommendations along the way. Eventually, the patient is to be [facility], [facility] in [place]. We will continue to follow make recommendations. Prognosis is guarded. Dictation was produced using [employer] software. Please excuse any grammatical, word or spelling errors. Plan dated December 05, 2024. The patient was sitting on his bed, and he was very confused, and had a sitter at the bedside. He was talking about fishing. The patient continues on 8 L of oxygen. Labs, x-rays, and all medications are reviewed. The patient continues on Augmentin. He also continues on DuoNeb updrafts. We will continue to follow and make a recommendation where appropriate. Respiratory status is still tenuous. All labs, x-rays, and medications are reviewed. Dictation was produced using [employer] software. Please excuse any grammatical, word or spelling errors. Plan dated December 06, 2024. The patient is seen today in room 376. He continues on high flow nasal O2 at 8 L. Additional recommendations and suggestions are forthcoming. Labs, x-rays, and medications are reviewed. The patient was quite confused yesterday, and seems a bit more with it today. He does have a sitter in the room. No new labs today other than a glucose of 217. We will continue to follow the patient. Prognosis is guarded. Dictation was produced using [employer] software. Please excuse any grammatical, word or spelling errors. Plan dated December 07, 2024. The patient is again seen in room 376. He continues on high flow nasal O2 at 8 L. The patient will get Solu-Medrol in place of prednisone. Will give him 60 mg every 6 hours. In addition we add budesonide 1 mg, mixed with formoterol 20 mcg, twice a day. His saturations on the 8 L or 93%. I have asked respiratory to try to wean down his FiO2 if possible. Labs, x-rays, and all medications are reviewed. We will continue to follow the patient, and make recommendations along the way. The patient's overall prognosis remains guarded. Dictation was produced using [employer] software. Please excuse any grammatical, word or spelling errors. Plan dated December 08, 2024. The patient is again seen today in room 376. He continues on high flow nasal O2 at 8 L. The patient is currently on IV Solu-Medrol, as well as breathing treatments, budesonide, and formoterol. Saturations are in the low to mid 90s. We will continue to follow the patient, make recommendations along the way. Labs, x-rays, and medications are reviewed. The patient's overall prognosis remains guarded. No additional recommendations are made at this time. Dictation was produced using Dragon dictation software. Please excuse any grammatical, word or spelling errors. Time with Patient: Less than 30
--- NOTE | 2024-12-08 15:05 | P.PN ---
Subjective Progress Note Date: 12/08/24 Principal diagnosis: Reason for follow-up is left elbow septic olecranon bursitis Patient is a 59-year-old male with a past medical history significant for hypertension seizure disorder atrial fibrillation he did have a metastatic lung cancer has been brought to the hospital for worsening swelling to the left elbow with a culture positive for MRSA concerning for septic olecranon bursitis. On today's evaluation that is 12/08/2024, Patient is afebrile patient is curr ently on 5 L nasal oxygen is more awake and alert and denies having any shortness of breath, the patient denies any chest pain or any worsening cough, complaining of weakness no new symptoms. No new lab has been obtained today Objective - Vital Signs Vital signs: Vital Signs Temp 97.4 F L 12/08/24 09:30 Pulse 105 H 12/08/24 12:33 Resp 20 12/08/24 12:33 BP 157/104 12/08/24 09:30 Pulse Ox 95 12/08/24 12:33 FiO2 50 12/02/24 08:18 Intake & Output 12/07/24 12/08/24 12/08/24 17:59 06:59 18:59 Intake Total 480 Output Total 300 Balance 180 Weight Intake: Oral 480 Output: Urine 300 Other: Voiding Method External Catheter # Bowel Movements 1 ABP, PAP, CO, CI - Last Documented Arterial Blood Pressure 131/85 - Exam GENERAL DESCRIPTION: Middle-age male lying in bed in no distress RESPIRATORY SYSTEM: Unlabored breathing , decreased breath sounds at bases HEART: S1 S2 regular rate and rhythm , ABDOMEN: Soft , no tenderness EXTREMITIES: No edema feet - Labs CBC & Chem 7: 12/03/24 06:13 12/03/24 06:13 Labs: Abnormal Lab Results - Last 24 Hours (Table) 12/07/24 12/07/24 12/07/24 Range/Units 16:59 20:54 22:52 POC Glucose (mg/dL) 246 H 218 H 295 H (70-110) mg/dL 12/08/24 12/08/24 Range/Units 06:01 11:41 POC Glucose (mg/dL) 223 H 241 H (70-110) mg/dL Assessment and Plan (1) Septic olecranon bursitis of left elbow Current Visit: Yes Status: Acute Code(s): M71.122 - OTHER INFECTIVE BURSITIS, LEFT ELBOW SNOMED Code(s): 9440195670649829 (2) Allergy to cephalosporin Current Visit: No Status: Acute Code(s): Z88.1 - ALLERGY STATUS TO OTHER ANTIBIOTIC AGENTS SNOMED Code(s): 916179591 (3) MRSA (methicillin resistant Staphylococcus aureus) infection Current Visit: Yes Status: Acute Code(s): A49.02 - METHICILLIN RESIS STAPH INFECTION, UNSP SITE SNOMED Code(s): 422526466 (4) Influenza A Current Visit: Yes Status: Acute Code(s): J10.1 - FLU DUE TO OTH IDENT INFLUENZA VIRUS W OTH RESP MANIFEST SNOMED Code(s): 695414150 (5) Pneumonia Current Visit: No Status: Acute Code(s): J18.9 - PNEUMONIA, UNSPECIFIED ORGANISM SNOMED Code(s): 342319919 Plan: 1patient being admitted to the hospital for left elbow pain swelling redness he did have a wound with a culture positive for MRSA in the outpatient setting now with concern for left elbow septic olecranon bursitis for the patient received adequate IV vancomycin and did have healing of his left elbow ulcer/olecranon bursitis. 2patient with influenza A for which the patient has completed 5-day course of Tamiflu 3patient with pneumonia blood cultures are so far negative, sputum is growing Haemophilus influenzae 4patient is afebrile patient white count has normalized, slowly clinical improvement requiring less supplemental oxygen continue Augmentin and monitor clinical course closely Dictation was produced using [employer] dictation software. please excuse any grammatical, word or spelling errors. Time with Patient: Less than 30
[2024-12-08 16:43] LABS: Glucose,Whole Blood 169 mg/dL (70-110)
[2024-12-08] MEDS: busPIRone HCl 5 MG TAB PO PRN (17:39)
[2024-12-08 20:10] LABS: Glucose,Whole Blood 271 mg/dL (70-110)
[2024-12-09 06:02] LABS: Glucose,Whole Blood 207 mg/dL (70-110)
--- NOTE | 2024-12-09 07:47 | PN ---
PROGRESS NOTE DATE OF SERVICE: 12/08/2024 CHIEF COMPLAINT: Electrolyte imbalance, respiratory failure. HISTORY OF PRESENT ILLNESS: The patient is about the same. He apparently fell out of bed last night without any injuries. PHYSICAL EXAMINATION: GENERAL: He is awake and quite alert, but cognitive function seems to have stalled. CHEST: Demonstrates good breath sounds bilaterally. CARDIAC: Normal. ABDOMEN: Soft, nontender. IMPRESSION: 1. Respiratory failure. 2. Sepsis. 3. Carcinoma of the lung. 4. Encephalopathy. PLAN: Continue with the current management and look at discharge planning. MMODL / IJN: [id number] /
[2024-12-09 11:08] LABS: Glucose,Whole Blood 175 mg/dL (70-110)
--- NOTE | 2024-12-09 13:34 | P.PN ---
Subjective Progress Note Date: 12/09/24 Principal diagnosis: Reason for follow-up is left elbow septic olecranon bursitis/haemophilus pneumonia Patient is a 59-year-old male with a past medical history significant for hypertension seizure disorder atrial fibrillation he did have a metastatic lung cancer has been brought to the hospital for worsening swelling to the left elbow with a culture positive for MRSA concerning for septic olecranon bursitis. On today's evaluation that is 12/09/2024, patient has been afebrile, patient is breathing comfortably and is currently on 8 L nasal oxygen the patient remains to be sleepy lethargic did not answer any question no concern per the sitter at the bedside no vomiting or diarrhea has been reported. No new lab has been obtained today Objective - Vital Signs Vital signs: Vital Signs Temp 97.5 F L 12/09/24 08:00 Pulse 92 12/09/24 08:30 Resp 18 12/09/24 08:00 BP 149/104 12/09/24 08:00 Pulse Ox 96 12/09/24 08:00 FiO2 50 12/02/24 08:18 Intake & Output 12/08/24 12/09/24 12/09/24 18:59 06:59 18:59 Intake Total 1200 236 Output Total 700 800 700 Balance 500 800 -464 Intake: Oral 1200 236 Output: Urine 700 800 700 Other: Voiding Method External Catheter External Catheter External Catheter # Bowel Movements 3 1 ABP, PAP, CO, CI - Last Documented Arterial Blood Pressure 131/85 - Exam GENERAL DESCRIPTION: Middle-age male lying in bed in no distress RESPIRATORY SYSTEM: Unlabored breathing , decreased breath sounds at bases HEART: S1 S2 regular rate and rhythm , ABDOMEN: Soft , no tenderness EXTREMITIES: No edema feet - Labs CBC & Chem 7: 12/03/24 06:13 12/03/24 06:13 Labs: Abnormal Lab Results - Last 24 Hours (Table) 12/08/24 12/08/24 12/09/24 Range/Units 16:40 20:09 06:00 POC Glucose (mg/dL) 169 H 271 H 207 H (70-110) mg/dL 12/09/24 Range/Units 11:05 POC Glucose (mg/dL) 175 H (70-110) mg/dL Assessment and Plan (1) Septic olecranon bursitis of left elbow Current Visit: Yes Status: Acute Code(s): M71.122 - OTHER INFECTIVE BURSITIS, LEFT ELBOW SNOMED Code(s): 9072253275991639 (2) Allergy to cephalosporin Current Visit: No Status: Acute Code(s): Z88.1 - ALLERGY STATUS TO OTHER ANTIBIOTIC AGENTS SNOMED Code(s): 899950275 (3) MRSA (methicillin resistant Staphylococcus aureus) infection Current Visit: Yes Status: Acute Code(s): A49.02 - METHICILLIN RESIS STAPH INFECTION, UNSP SITE SNOMED Code(s): 623218117 (4) Influenza A Current Visit: Yes Status: Acute Code(s): J10.1 - FLU DUE TO OTH IDENT INFLUENZA VIRUS W OTH RESP MANIFEST SNOMED Code(s): 279883057 (5) Pneumonia Current Visit: No Status: Acute Code(s): J18.9 - PNEUMONIA, UNSPECIFIED ORGANISM SNOMED Code(s): 600949629 Plan: 1patient being admitted to the hospital for left elbow pain swelling redness he did have a wound with a culture positive for MRSA in the outpatient setting now with concern for left elbow septic olecranon bursitis for the patient received adequate IV vancomycin and did have healing of his left elbow ulcer/olecranon bursitis. 2patient with influenza A for which the patient has completed 5-day course of Tamiflu 3patient with pneumonia blood cultures are so far negative, sputum is growing Haemophilus influenzae 4patient is afebrile patient white count has normalized, 5we will continue the patient on Augmentin and monitor clinical course closely Dictation was produced using [employer] dictation software. please excuse any gr ammatical, word or spelling errors. Time with Patient: Less than 30
--- NOTE | 2024-12-09 16:18 | P.PN ---
Subjective Progress Note Date: 12/09/24 On today's evaluation of 12/09/2024, the patient remains confused, lethargic, at times agitated, given Haldol and at the time of my evaluation, the patient was essentially lethargic somnolent and difficult to arouse. He was unable to communicate. He has a sitter at the bedside. Noted, the patient is quite debilitated. This patient has history of metastatic small cell lung cancer receives therapy back in 2021. Please note my detailed description and progression of his small cell lung cancer. The most recent CAT scan of the chest that was done on 11/18/2024 showed no disease progression. However, during this current hospital stay, the patient developed an extensive bilateral pneumonia right more than left. He required intubation mechanical ventilation and he was ultimately extubated on 11/29/2024. The most recent chest x-ray from him was on 12/03/2024 still showing extensive consolidation in the lungs bilaterally. At this point, the patient is on 8 L of oxygen by nasal cannula with a pulse ox of 97%. His oral intake is essentially limited based on my conversations with the nursing staff. He remains on Augmentin as the patient was found to have haemophilus influenza on his sputum on 11/26/2024 and this will be continued. Remains on IV Solu-Medrol 60 mg every 6 hours. Remains on DuoNeb nebulized treatments [id number]. Remains on a combination of Perforomist and Pulmicort nebulized treatments twice a day. Remains on IV Keppra. Remains encephalopathic and extensively debilitated. He is on amiodarone regarding chronic atrial fibrillation. He is also on metoprolol 100 mg p.o. daily. And atrial fibrillation. No anticoagulants for now. Objective - Vital Signs Vital signs: Vital Signs Temp 97.5 F L 12/09/24 08:00 Pulse 92 12/09/24 08:30 Resp 18 12/09/24 08:00 BP 149/104 12/09/24 08:00 Pulse Ox 96 12/09/24 08:00 FiO2 50 12/02/24 08:18 Intake & Output 12/08/24 12/09/24 12/09/24 18:59 06:59 18:59 Intake Total 1200 236 Output Total 700 800 700 Balance 500 -800 -464 Intake: Oral 1200 236 Output: Urine 700 800 700 Other: Voiding Method External Catheter External Catheter External Catheter # Bowel Movements 3 1 ABP, PAP, CO, CI - Last Documented Arterial Blood Pressure 131/85 - Exam No acute distress, somnolent/lethargic, currently on 8 L of oxygen by nasal cannula. Calm and comfortable. HEENT examination is grossly unremarkable. Mucous membranes are moist. No oral lesions. Neck supple. Full range of motion. No adenopathy thyromegaly or neck vein distention. Cardiovascular examination reveals an irregular rhythm and rate. S1-S2 normal. No S3 or S4. No discernible murmur noted. Heart sounds are distant. Lungs reveal tattered rhonchi. Diminished breath sounds on the left. No whee zes or crackles. Abdomen soft bowel sounds are heard. No masses or tenderness. Extremities are intact. No cyanosis clubbing or edema. Skin reveals a left elbow with open superficial wound. Neurologic examination the patient is encephalopathic, confused, received Haldol this morning to control his restlessness and agitation. - Labs CBC & Chem 7: 12/03/24 06:13 12/03/24 06:13 Labs: Abnormal Lab Results - Last 24 Hours (Table) 12/08/24 12/08/24 12/09/24 Range/Units 16:40 20:09 06:00 POC Glucose (mg/dL) 169 H 271 H 207 H (70-110) mg/dL 12/09/24 Range/Units 11:05 POC Glucose (mg/dL) 175 H (70-110) mg/dL Assessment and Plan Plan: Acute hypoxemic respiratory failure, with bilateral pneumonia requiring intubation mechanical ventilation. The patient was extubated on 11/29/2024. Sputum sample was positive for haemophilus influenza. Most recent chest x-ray was done on 12/03/2024 still showing upper lobe consolidation with. Poor ability to perform pulmonary toileting. Previous echocardiogram from December 2023 had shown a preserved LV function with an ejection fraction of 55 to 60%. There is mild pulmonary hypertension and moderate degree of mitral regurgitation. CAT scan of the chest done on 11/18/2024 showed small bilateral pleural effusion with adjacent atelectasis. No evidence of any tumor progression. Overall respiratory status remains stable olecranon bursitis, wound culture positive for methicillin-resistant Staphylococcus aureus. The patient was treated with vancomycin Atrial fibrillation with controlled ventricular response, rate is under better control although the patient continues to be tachycardic. The patient remains on a combination of amiodarone and metoprolol Metastatic small cell lung cancer, receiving immunotherapy and most recent CAT scan of the brain and a CAT scan of the chest showed no evidence of any active disease. Presented to [facility] on 04/22/22 with increased confusion and disorientation. CT brain without contrast noted 2 large hypodense lesions in bilateral parietal lobes measuring 4.9 x 3.2 cm on the left and 3.3 x 3.1 cm on the right. Initial CXR showed 2.6 cm mass in left mid lung field. He was started on IV dexamethasone. MRI brain on 04/23/22 noted a left 4.9 x 4.8 x 4 cm left cerberal hemisphere lesion and 4.1 x 4.1 cm right cerebral hemisphere lesion. A left cerebellum lesion measured 1.4 x 1.2 x 0.9 cm along with a potential left cerebellar peduncle lesion measuring 5 mm. Transferred to [facility] where he underwent bilateral parietal crainiotomy on 05/06/22, path + lung primary with mixed small cell and adenocarcinoma histology (TTF-1, synaptophysin, c hromogranin positive; CK20 positive in small cell component). PET/CT on 05/24/22 reported posterior lateral SERAFIN lung lesion with SUV 4.79, superior left hilar lymphadenopathy with SUV 4.97, and punctate posterior right lung nodule with SUV 1.12. Uptake was also noted at the costovertebral junction and posterior chest, but unclear if this was malignant in nature. He had SRS at [facility] from 05/30/22-06/07/22 receiving 57 Gy in 8 fractions. Had significant improvement in his vision since SRS. He received 4 cycles of carboplatin and etoposide from 07/05/22-09/08/22. Staging CT scans on 09/19/2022 revealed no evidence of disease progression with partial response. Brain MRI July 2022 with no evidence of disease recurrence.Brain MRI on 07/06/2023 revealed no evidence of intracranial metastases. Repeat brain MRI on 08/28/2023 noted new anterior left temporal lobe lesion measuring 1.4 cm. He received 3 fractions of SRS with 27 Gordon from 09/04/2023 through 09/06/2023. Staging CT scans on 10/23/2023 revealed no evidence of metastatic disease. He was admitted to [facility] on 11/07/2023 with seizure and altered mental status was found to have new right temporal lobe lesion measuring 1.2 cm. Completed 3 fractions of SRS to the temporal lobe lesion in early December 2023. He restarted atezolizumab on 12/27/2023. Staging CT scans on 03/06/2024 and brain MRI on 03/18/2024 revealed no evidence of recurrent or metastatic disease. He was previously noted to have cysts of the liver with no lesions concerning for definitive metastatic disease.He did have hospitalizations in May and June 2024 where brain MRI on 05/17/2024 noted stable intracranial lesions that were treated. CT abdomen/pelvis on 06/13/2024 revealed no evidence of malignancy with stable hepatic cysts. CT chest performed on 08/05/2024 revealed no evidence of metastatic disease. He is s/p 25 cycles of maintenance tecentriq. CAT scan of the chest done on 11/18/2024 shows no evidence of any residual tumor or tumor progression. Delirium,, lethargic, weakness and episodes of confusion. The patient also demo nstrate generalized weakness.. Continues to have delirium, confusion and encephalopathy. Given Haldol Hypertension. Elevated troponins, possibly secondary to supply/demand mismatch. Altered mental status, under investigation, brain CT did not show any acute intracranial bleeding or mass effect. History of seizure disorder. The patient is currently on Keppra. History of polysubstance abuse. Plan: Wean FiO2 as tolerated to maintain saturation above 90%. Currently on 8 L of oxygen nasal cannula with a pulse ox of 97%. Continue Augmentin Repeat chest x-ray in the morning Monitor mental status Sitter at the bedside CT of the brain done on 11/27/2024 showed no enhancing lesions to suggest metastatic disease. Unable to perform an MRI. Continue bronchodilators Continue IV Solu-Medrol Management of atrial fibrillation the patient is currently on amiodarone 200 mg p.o., p.o. twice daily and metoprolol 100 mg p.o. daily. No anticoagulants Oncology follow-up ID follow-up Monitor mental status Will continue to follow Prognosis remains extremely poor based on above-mentioned comorbidities. Time with Patient: Greater than 30
[2024-12-09 16:28] LABS: Glucose,Whole Blood 215 mg/dL (70-110)
[2024-12-09 20:27] LABS: Glucose,Whole Blood 252 mg/dL (70-110)
[2024-12-10 06:22] LABS: Glucose,Whole Blood 309 mg/dL (70-110)
--- NOTE | 2024-12-10 08:18 | XR ---
EXAMINATION TYPE: XR chest 1V DATE OF EXAM: 12/10/2024 7:00 AM COMPARISON: Chest radiographs from 12/03/2024 CLINICAL INDICATION: Male, 59 years old with history of pneumonia; [facility] TECHNIQUE: XR chest 1V Frontal view of the chest. FINDINGS: Lungs/Pleura: Similar airspace opacities in the right upper lung right lower lung and left base. Ther e is no evidence of pleural effusion, focal consolidation, or pneumothorax. Pulmonary vascularity: Unremarkable. Heart/mediastinum: Cardiomediastinal silhouette is unremarkable. Musculoskeletal: No acute osseous pathology. Other findings: None Lines/Tubes: Right internal jugular central venous catheter with distal tip at the cavoatrial junction. IMPRESSION: Similar multifocal patchy airspace opacities concerning for pneumonia. Most pronounced throughout the right lung. [facility], , 12/10/2024 8:16 AM
[2024-12-10 11:38] LABS: Glucose,Whole Blood 316 mg/dL (70-110)
[2024-12-10 16:27] LABS: Glucose,Whole Blood 260 mg/dL (70-110)
--- NOTE | 2024-12-10 17:05 | P.PN ---
Subjective Progress Note Date: 12/10/24 On today's evaluation of 12/09/2024, the patient remains confused, lethargic, at times agitated, given Haldol and at the time of my evaluation, the patient was essentially lethargic somnolent and difficult to arouse. He was unable to communicate. He has a sitter at the bedside. Noted, the patient is quite debilitated. This patient has history of metastatic small cell lung cancer receives therapy back in 2021. Please note my detailed description and progression of his small cell lung cancer. The most recent CAT scan of the chest that was done on 11/18/2024 showed no disease progression. However, during this current hospital stay, the patient developed an extensive bilateral pneumonia right more than left. He required intubation mechanical ventilation and he was ultimately extubated on 11/29/2024. The most recent chest x-ray from him was on 12/03/2024 still showing extensive consolidation in the lungs bilaterally. At this point, the patient is on 8 L of oxygen by nasal cannula with a pulse ox of 97%. His oral intake is essentially limited based on my conversations with the nursing staff. He remains on Augmentin as the patient was found to have haemophilus influenza on his sputum on 11/26/2024 and this will be continued. Remains on IV Solu-Medrol 60 mg every 6 hours. Remains on DuoNeb nebulized treatments [id number]. Remains on a combination of Perforomist and Pulmicort nebulized treatments twice a day. Remains on IV Keppra. Remains encephalopathic and extensively debilitated. He is on amiodarone regarding chronic atrial fibrillation. He is also on metoprolol 100 mg p.o. daily. And atrial fibrillation. No anticoagulants for now. On 12/10/2024, the patient remains altered and confused. He is having ongoing cough and congestion and respiratory distress even at rest. His oxygenation is also gotten worse and the patient is currently on 15 L of oxygen by nasal cannula with a pulse ox of 92%. I repeated the chest x-ray this morning and the patient continues to have stable multifocal patchy airspace disease more so in the right upper lobe. The most recent sputum sample from 11/26/2024 was positive for haemophilus influenza and the patient was treated accordingly and he is currently still on oral Augmentin. Remains on DuoNeb updrafts. Remains on Perforomist and Pulmicort nebulized treatments twice a day. Remains on IV Solu- Medrol 60 mg every 6 hours. Is also known to have metastatic small cell lung cancer. Extremely debilitated. Weak. Remains in atrial fibrillation. Objective - Vital Signs Vital signs: Vital Signs Temp 98.1 F 12/10/24 09:39 Pulse 108 H 12/10/24 11:34 Resp 21 12/10/24 09:40 BP 163/111 12/10/24 09:39 Pulse Ox 95 12/10/24 09:39 FiO2 50 12/02/24 08:18 Intake & Output 12/09/24 12/10/24 12/10/24 18:59 06:59 18:59 Intake Total 472 180 Output Total 702 6 Balance -230 -6 180 Weight 74.5 kg Intake: Oral 472 180 Output: Urine 700 2 Stool 2 4 Other: Voiding Method External Catheter External Catheter External Catheter # Voids 2 # Bowel Movements 1 1 1 ABP, PAP, CO, CI - Last Documented Arterial Blood Pressure 131/85 - Exam No acute distress, somnolent/lethargic, currently on 15 L of oxygen by nasal cannula. Calm and comfortable. HEENT examination is grossly unremarkable. Mucous membranes are moist. No oral lesions. Neck supple. Full range of motion. No adenopathy thyromegaly or neck vein distention. Cardiovascular examination reveals an irregular rhythm and rate. S1-S2 normal. No S3 or S4. No discernible murmur noted. Heart sounds are distant. Lungs reveal tattered rhonchi. Diminished breath sounds on the left. No wheezes or crackles. Abdomen soft bowel sounds are heard. No masses or tenderness. Extremities are intact. No cyanosis clubbing or edema. Skin reveals a left elbow with open superficial wound. Neurologic examination the patient is encephalopathic, confused, received Haldol this morning to control his restlessness and agitation. - Labs CBC & Chem 7: 12/03/24 06:13 12/03/24 06:13 Labs: Abnormal Lab Results - Last 24 Hours (Table) 12/09/24 12/09/24 12/10/24 Range/Units 16:27 20:26 06:21 POC Glucose (mg/dL) 215 H 252 H 309 H (70-110) mg/dL 12/10/24 Range/Units 11:36 POC Glucose (mg/dL) 316 H (70-110) mg/dL Assessment and Plan Plan: Acute hypoxemic respiratory failure, with bilateral pneumonia requiring intubation mechanical ventilation. The patient was extubated on 11/29/2024. Sputum sample was positive for haemophilus influenza. Most recent chest x-ray was done on 12/03/2024 still showing upper lobe consolidation with. Poor ability to perform pulmonary toileting. Previous echocardiogram from December 2023 had shown a preserved LV function with an ejection fraction of 55 to 60%. There is mild pulmonary hypertension and moderate degree of mitral regurgitation. CAT scan of the chest done on 11/18/2024 showed small bilateral pleural effusion with adjacent atelectasis. No evidence of any tumor progression. Overall respiratory status remains stable. Repeat chest x-ray from 12/10/2024 shows similar stable diffuse multifocal airspace disease more so in the right upper lobe. Based on the most recent sputum samples of haemophilus influenza, the patient remains on oral Augmentin. olecranon bursitis, wound culture positive for methicillin-resistant Staphylococcus aureus. The patient was treated with vancomycin Atrial fibrillation with controlled ventricular response, rate is under better control although the patient continues to be tachycardic. The patient remains on a combination of amiodarone and metoprolol Metastatic small cell lung cancer, receiving immunotherapy and most recent CAT scan of the brain and a CAT scan of the chest showed no evidence of any active disease. Presented to [facility] on 04/22/22 with increased confusion and disorientation. CT brain without contrast noted 2 large hypodense lesions in bilateral parietal lobes measuring 4.9 x 3.2 cm on the left and 3.3 x 3.1 cm on the right. Initial CXR showed 2.6 cm mass in left mid lung field. He was started on IV dexamethasone. MRI brain on 04/23/22 noted a left 4.9 x 4.8 x 4 cm left cerberal hemisphere lesion and 4.1 x 4.1 cm right cerebral hemisphere lesion. A left cerebellum lesion measured 1.4 x 1.2 x 0.9 cm along with a potential left cerebellar peduncle lesion measuring 5 mm. Transferred to [facility] where he underwent bilateral parietal crainiotomy on 05/06/22, path + lung primary with mixed small cell and adenocarcinoma histology (TTF-1, synaptophysin, chromogranin positive; CK20 positive in small cell component). PET/CT on 05/24/22 reported posterior lateral SERAFIN lung lesion with SUV 4.79, superior left hilar lymphadenopathy with SUV 4.97, and punctate posterior right lung nodule with SUV 1.12. Uptake was also noted at the costovertebral junction and posterior chest, but unclear if this was malignant in nature. He had SRS at [facility] from 05/30/22-06/07/22 receiving 57 Gy in 8 fractions. Had significant i mprovement in his vision since SRS. He received 4 cycles of carboplatin and etoposide from 07/05/22-09/08/22. Staging CT scans on 09/19/2022 revealed no evidence of disease progression with partial response. Brain MRI July 2022 with no evidence of disease recurrence.Brain MRI on 07/06/2023 revealed no evidence of intracranial metastases. Repeat brain MRI on 08/28/2023 noted new anterior left temporal lobe lesion measuring 1.4 cm. He received 3 fractions of SRS with 27 Gordon from 09/04/2023 through 09/06/2023. Staging CT scans on 10/23/2023 revealed no evidence of metastatic disease. He was admitted to [facility] on 11/07/2023 with seizure and altered mental status was found to have new right temporal lobe lesion measuring 1.2 cm. Completed 3 fractions of SRS to the temporal lobe lesion in early December 2023. He restarted atezolizumab on 12/27/2023. Staging CT scans on 03/06/2024 and brain MRI on 03/18/2024 revealed no evidence of recurrent or metastatic disease. He was previously noted to have cysts of the liver with no lesions concerning for definitive metastatic disease.He did have hospitalizations in May and June 2024 where brain MRI on 05/17/2024 noted stable intracranial lesions that were treated. CT abdomen/pelvis on 06/13/2024 revealed no evidence of malignancy with stable hepatic cysts. CT chest performed on 08/05/2024 revealed no evidence of metastatic disease. He is s/p 25 cycles of maintenance tecentriq. CAT scan of the chest done on 11/18/2024 shows no evidence of any residual tumor or tumor progression. Delirium,, lethargic, weakness and episodes of confusion. The patient also demonstrate generalized weakness.. Continues to have delirium, confusion and encephalopathy. Given Haldol Hypertension. Elevated troponins, possibly secondary to supply/demand mismatch. Altered mental status, under investigation, brain CT did not show any acute intracranial bleeding or mass effect. History of seizure disorder. The patient is currently on Keppra. History of polysubstance abuse. Plan: This patient carries a poor prognosis Continues to have diffuse airspace disease bilaterally Has taken prolonged antibiotic courses Will recheck sputum samples Consider bronchoscopy. The patient seems to be quite unstable to undergo another bronchoscopy for therapeutic airway suctioning and bronchial lavage as the patient is currently on 15 L of O2 nasal cannula This will be discussed again with the family and the medical team Continue Augmentin for Monitor mental status Sitter at the bedside CT of the brain done on 11/27/2024 showed no enhancing lesions to suggest metastatic disease. Unable to perform an MRI. Continue bronchodilators Continue IV Solu-Medrol Management of atrial fibrillation the patient is currently on amiodarone 200 mg p.o., p.o. twice daily and metoprolol 100 mg p.o. daily. No anticoagulants Oncology follow-up ID follow-up Monitor mental status Will continue to follow Prognosis remains extremely poor based on above-mentioned comorbidities. Time with Patient: Greater than 30
[2024-12-10] MEDS: cloNIDine HCL 0.1 MG TAB PO SCH (17:55)
[2024-12-10 20:20] LABS: Glucose,Whole Blood 334 mg/dL (70-110)
--- NOTE | 2024-12-10 20:54 | PN ---
PROGRESS NOTE DATE OF SERVICE: 12/10/2024 CHIEF COMPLAINT: CA of the lung, lethargy, delirium, history of pneumonitis and sepsis. HISTORY OF PRESENT ILLNESS: This gentleman seems to be doing just about the same. He is possibly becoming a little bit more confused. PHYSICAL EXAMINATION: CHEST: Breath sounds are diminished bilaterally. CARDIAC: He is in atrial fibrillation. ABDOMEN: Soft, nontender. IMPRESSION: 1. Carcinoma of the lung. 2. Pneumonitis. 3. Sepsis. 4. Encephalopathy. 5. Delirium. 6. Atrial fibrillation. PLAN: No change in program at this time. Prognosis is poor. Discharge planning will be difficult at this time. MMODL / IJN: [id number] /
--- NOTE | 2024-12-10 21:11 | PN ---
PROGRESS NOTE DATE OF SERVICE: 12/09/2024 CHIEF COMPLAINT: Mental status changes, delirium, pneumonitis, CA of the lung, and atrial fibrillation. HISTORY OF PRESENT ILLNESS: This gentleman is about the same. He remains confused and weak. Does not seem to be making a great deal of progress. PHYSICAL EXAMINATION: CHEST: Clear. CARDIAC EXAM: Normal. ABDOMEN: Flat and soft, nontender. EXTREMITIES: Same. IMPRESSION: 1. Status post respiratory failure. 2. Carcinoma of the lung. 3. Sepsis. 4. Pneumonitis. 5. Delirium. PLAN: Continue to follow and start to look into discharge planning. He will be able to go home. MMODL / IJN: [id number] /
[2024-12-11 04:05] LABS: Glucose,Whole Blood 206 mg/dL (70-110)
[2024-12-11] MEDS: ONDANSETRON 4 MG/2 ML VIAL IVP PRN (04:11)
[2024-12-11 06:37] LABS: Glucose,Whole Blood 200 mg/dL (70-110)
[2024-12-11 11:34] LABS: Glucose,Whole Blood 182 mg/dL (70-110)
[2024-12-11 11:36] LABS: ABG Base Excess 7.5 mmol/L; ABG HCO3 36 mmol/L (21-25); ABG Oxygen Saturation 85.5 % (94-97); ABG PH 7.28 (7.35-7.45); ABG PO2 60 mmHg (83-108); ABG TCO2 38 mmol/L (19-24); Allen Test Performed? Yes
[2024-12-11 11:38] LABS: ABG PCO2 76 mmHg (35-45)
--- NOTE | 2024-12-11 12:53 | XR ---
EXAMINATION TYPE: XR chest 1V portable DATE OF EXAM: 12/11/2024 12:47 PM COMPARISON: Chest radiographs from 12/10/2024. CLINICAL INDICATION: Male, 59 years old with history of SOB; [facility] TECHNIQUE: XR chest 1V portable Frontal view of the chest. FINDINGS: Lungs/Pleura: Interval increase in airspace opacities of the lung compared to prior on 12/10/2024. The re is no evidence of pleural effusion, or pneumothorax. Pulmonary vascularity: Unremarkable. Heart/mediastinum: Cardiomediastinal silhouette is unremarkable. Musculoskeletal: No acute osseous pathology. Other findings: None Lines/Tubes: IMPRESSION: Worsening diffuse airspace opacities throughout the lungs. [facility], , 12/11/2024 12:50 PM
--- NOTE | 2024-12-11 16:54 | P.PN ---
Subjective Progress Note Date: 12/11/24 On today's evaluation of 12/09/2024, the patient remains confused, lethargic, at times agitated, given Haldol and at the time of my evaluation, the patient was essentially lethargic somnolent and difficult to arouse. He was unable to communicate. He has a sitter at the bedside. Noted, the patient is quite debilitated. This patient has history of metastatic small cell lung cancer receives therapy back in 2021. Please note my detailed description and progression of his small cell lung cancer. The most recent CAT scan of the chest that was done on 11/18/2024 showed no disease progression. However, during this current hospital stay, the patient developed an extensive bilateral pneumonia right more than left. He required intubation mechanical ventilation and he was ultimately extubated on 11/29/2024. The most recent chest x-ray from him was on 12/03/2024 still showing extensive consolidation in the lungs bilaterally. At this point, the patient is on 8 L of oxygen by nasal cannula with a pulse ox of 97%. His oral intake is essentially limited based on my conversations with the nursing staff. He remains on Augmentin as the patient was found to have haemophilus influenza on his sputum on 11/26/2024 and this will be continued. Remains on IV Solu-Medrol 60 mg every 6 hours. Remains on DuoNeb nebulized treatments [id number]. Remains on a combination of Perforomist and Pulmicort nebulized treatments twice a day. Remains on IV Keppra. Remains encephalopathic and extensively debilitated. He is on amiodarone regarding chronic atrial fibrillation. He is also on metoprolol 100 mg p.o. daily. And atrial fibrillation. No anticoagulants for now. On 12/10/2024, the patient remains altered and confused. He is having ongoing cough and congestion and respiratory distress even at rest. His oxygenation is also gotten worse and the patient is currently on 15 L of oxygen by nasal cannula with a pulse ox of 92%. I repeated the chest x-ray this morning and the patient continues to have stable multifocal patchy airspace disease more so in the right upper lobe. The most recent sputum sample from 11/26/2024 was positive for haemophilus influenza and the patient was treated accordingly and he is currently still on oral Augmentin. Remains on DuoNeb updrafts. Remains on Perforomist and Pulmicort nebulized treatments twice a day. Remains on IV Solu- Medrol 60 mg every 6 hours. Is also known to have metastatic small cell lung cancer. Extremely debilitated. Weak. Remains in atrial fibrillation. On 12/11/2024, the patient was quite restless and lethargic on the medical floor. I saw this patient earlier this morning and a blood gas was done that showed a pH of 7.28 with a pCO2 of 76 and pO2 of 60 and this was done while the patient was being on 15 L of oxygen by nasal cannula. A follow-up chest x-ray was also done and it shows diffuse bilateral airspace disease with probably some interval worsening. Based on that, the patient was transferred to the intensive care unit for further monitoring. Contemplating intubation mechanical ventilation. His CODE STATUS remains full. He is going to be monitored very closely. Unable to give a sputum sample and the most recent sputum sample was positive for haemophilus influenza. The patient remains on broad-spectrum antibiotics and the patient was switched again to IV Zosyn. Rest of the medications remain unchanged. Remains on bronchodilators. Remains on steroids. Very much debilitated at this point in time. Objective - Vital Signs Vital signs: Vital Signs Temp 97.7 F 12/11/24 08:00 Pulse 112 H 12/11/24 08:00 Resp 20 12/11/24 08:00 BP 140/96 12/11/24 08:00 Pulse Ox 92 L 12/11/24 08:00 FiO2 50 12/02/24 08:18 Intake & Output 12/10/24 12/11/24 12/11/24 18:59 06:59 18:59 Intake Total 540 240 Balance 540 240 Weight 75.5 kg Intake: Oral 540 240 Other: Voiding Method External Catheter External Catheter External Catheter # Voids 1 2 # Bowel Movements 1 1 ABP, PAP, CO, CI - Last Documented Arterial Blood Pressure 131/85 - Exam No acute distress, somnolent/lethargic, currently on 15 L of oxygen by nasal cannula. Restless in bed, sitter is at the bedside HEENT examination is grossly unremarkable. Mucous membranes are moist. No oral lesions. Neck supple. Full range of motion. No adenopathy thyromegaly or neck vein distention. Cardiovascular examination reveals an irregular rhythm and rate. S1-S2 normal. No S3 or S4. No discernible murmur noted. Heart sounds are distant. Lungs reveal tattered rhonchi. Diminished breath sounds on the left. No wheezes or crackles. Abdomen soft bowel sounds are heard. No masses or tenderness. Extremities are intact. No cyanosis clubbing or edema. Skin reveals a left elbow with open superficial wound. Neurologic examination the patient is encephalopathic, confused, received Haldol this morning to control his restlessness and agitation. - Labs CBC & Chem 7: 12/03/24 06:13 12/03/24 06:13 Labs: Abnormal Lab Results - Last 24 Hours (Table) 12/10/24 12/10/24 12/10/24 Range/Units 11:36 16:26 20:19 POC Glucose (mg/dL) 316 H 260 H 334 H (70-110) mg/dL 12/11/24 12/11/24 Range/Units 03:58 06:35 POC Glucose (mg/dL) 206 H 200 H (70-110) mg/dL Assessment and Plan Plan: Acute hypoxemic respiratory failure, with bilateral pneumonia requiring intubation mechanical ventilation. The patient was extubated on 11/29/2024. Sputum sample was positive for haemophilus influenza. Most recent chest x-ray was done on 12/03/2024 still showing upper lobe consolidation with. Poor ability to perform pulmonary toileting. Previous echocardiogram from December 2023 had shown a preserved LV function with an ejection fraction of 55 to 60%. There is mild pulmonary hypertension and moderate degree of mitral regurgitation. CAT scan of the chest done on 11/18/2024 showed small bilateral pleural effusion with adjacent atelectasis. No evidence of any tumor progression. Overall respiratory status remains stable. Repeat chest x-ray from 12/10/2024 shows s imilar stable diffuse multifocal airspace disease more so in the right upper lobe. Over the past 24 hours, oxygenation is gotten worse and the patient is currently on 15 L of oxygen by nasal cannula. Blood gas from this morning shows a component of respiratory acidosis and the patient got transferred to the intensive care unit. Chest x-ray shows worsening of the diffuse bilateral airspace disease. The patient was started on IV Zosyn. olecranon bursitis, wound culture positive for methicillin-resistant Staphylococcus aureus. The patient was treated with vancomycin Atrial fibrillation with controlled ventricular response, rate is under better control although the patient continues to be tachycardic. The patient remains on a combination of amiodarone and metoprolol Metastatic small cell lung cancer, receiving immunotherapy and most recent CAT scan of the brain and a CAT scan of the chest showed no evidence of any active disease. Presented to [facility] on 04/22/22 with increased confusion and disorientation. CT brain without contrast noted 2 large hypodense lesions in bi lateral parietal lobes measuring 4.9 x 3.2 cm on the left and 3.3 x 3.1 cm on the right. Initial CXR showed 2.6 cm mass in left mid lung field. He was started on IV dexamethasone. MRI brain on 04/23/22 noted a left 4.9 x 4.8 x 4 cm left cerberal hemisphere lesion and 4.1 x 4.1 cm right cerebral hemisphere lesion. A left cerebellum lesion measured 1.4 x 1.2 x 0.9 cm along with a potential left cerebellar peduncle lesion measuring 5 mm. Transferred to [facility] where he underwent bilateral parietal crainiotomy on 05/06/22, path + lung primary with mixed small cell and adenocarcinoma histology (TTF-1, synaptophysin, chromogranin positive; CK20 positive in small cell component). PET/CT on 05/24/22 reported posterior lateral SERAFIN lung lesion with SUV 4.79, superior left hilar lymphadenopathy with SUV 4.97, and punctate posterior right lung nodule with SUV 1.12. Uptake was also noted at the costovertebral junction and posterior chest, but unclear if this was malignant in nature. He had SRS at [facility] from 05/30/22-06/07/22 receiving 57 Gy in 8 fractions. Had significant improvement in his vision since SRS. He received 4 cycles of carboplatin and etoposide from 07/05/22-09/08/22. Staging CT scans on 09/19/2022 revealed no evidence of disease progression with partial response. Brain MRI July 2022 with no evidence of disease recurrence.Brain MRI on 07/06/2023 revealed no evidence of intracranial metastases. Repeat brain MRI on 08/28/2023 noted new anterior left temporal lobe lesion measuring 1.4 cm. He received 3 fractions of SRS with 27 Gordon from 09/04/2023 through 09/06/2023. Staging CT scans on 10/23/2023 revealed no evidence of metastatic disease. He was admitted to [facility] on 11/07/2023 with seizure and altered mental status was found to have new right temporal lobe lesion measuring 1.2 cm. Completed 3 fractions of SRS to the temporal lobe lesion in early December 2023. He restarted atezolizumab on 12/27/2023. Staging CT scans on 03/06/2024 and brain MRI on 03/18/2024 revealed no evidence of recurrent or metastatic disease. He was previously noted to have cysts of the liver with no lesions concerning for definitive metastatic disease.He did have hospitalizations in May and June 2024 where brain MRI on 05/17/2024 noted stable intracranial lesions that were treated. CT abdomen/pelvis on 06/13/2024 revealed no evidence of malignancy with stable hepatic cysts. CT chest performed on 08/05/2024 revealed no evidence of metastatic disease. He is s/p 25 cycles of maintenance tecentriq. CAT scan of the chest done on 11/18/2024 shows no evidence of any residual tumor or tumor progression. Delirium,, lethargic, weakness and episodes of confusion. The patient also demonstrate generalized weakness.. Continues to have delirium, confusion and encephalopathy. Given Haldol Hypertension. Elevated troponins, possibly secondary to supply/demand mismatch. Altered mental status, under investigation, brain CT did not show any acute intracranial bleeding or mass effect. History of seizure disorder. The patient is currently on Keppra. History of polysubstance abuse. Plan: Patient got transferred back to the intensive care unit Respiratory status is quite borderline and the patient may require intubation mechanical ventilation. This patient carries a poor prognosis Continues to have diffuse airspace disease bilaterally, with interval worsening Consider bronchoscopy. The patient seems to be quite unstable to undergo another bronchoscopy for therapeutic airway suctioning and bronchial lavage as the patient is currently on 15 L of O2 nasal cannula. Will discuss with the family. We decided with intubation, the patient will undergo bronchoscopy endobronchial lavage. Monitor mental status Sitter at the bedside CT of the brain done on 11/27/2024 showed no enhancing lesions to suggest metastatic disease. Unable to perform an MRI. Continue bronchodilators Continue IV Solu-Medrol Management of atrial fibrillation the patient is currently on amiodarone 200 mg p.o., p.o. twice daily and metoprolol 100 mg p.o. daily. No anticoagulants Oncology follow-up ID follow-up Monitor mental status Will continue to follow Prognosis remains extremely poor based on above-mentioned comorbidities. Evaluation was done 35 minutes. Time with Patient: Greater than 30
--- NOTE | 2024-12-11 17:13 | P.PN ---
Subjective Progress Note Date: 12/11/24 Principal diagnosis: Reason for follow-up is left elbow septic olecranon bursitis/haemophilus pneumonia Patient is a 59-year-old male with a past medical history significant for hypertension seizure disorder atrial fibrillation he did have a metastatic lung cancer has been brought to the hospital for worsening swelling to the left elbow with a culture positive for MRSA concerning for septic olecranon bursitis. On today's evaluation that is 12/11/2024,the patient has been afebrile noticed to have worsening of his respiratory status requiring transfer to the ICU pa rah is currently on 15 L high flow nasal oxygen he is lethargic not with good historian no vomiting or diarrhea has been reported. No CBC was done today Objective - Vital Signs Vital signs: Vital Signs Temp 97.7 F 12/11/24 08:00 Pulse 112 H 12/11/24 08:00 Resp 20 12/11/24 08:00 BP 140/96 12/11/24 08:00 Pulse Ox 92 L 12/11/24 08:00 FiO2 50 12/02/24 08:18 Intake & Output 12/10/24 12/11/24 12/11/24 18:59 06:59 18:59 Intake Total 540 240 Balance 540 240 Weight 75.5 kg Intake: Oral 540 240 Other: Voiding Method External Catheter External Catheter External Catheter # Voids 1 2 2 # Bowel Movements 1 1 ABP, PAP, CO, CI - Last Documented Arterial Blood Pressure 131/85 - Exam GENERAL DESCRIPTION: Middle-age male lying in bed in no distress RESPIRATORY SYSTEM: Unlabored breathing , decreased breath sounds at bases HEART: S1 S2 regular rate and rhythm , ABDOMEN: Soft , no tenderness EXTREMITIES: No edema feet - Labs CBC & Chem 7: 12/03/24 06:13 12/03/24 06:13 Labs: Abnormal Lab Results - Last 24 Hours (Table) 12/10/24 12/10/24 12/11/24 Range/Units 16:26 20:19 03:58 ABG pH (7.35-7.45) ABG pCO2 (35-45) mmHg ABG pO2 (83-108) mmHg ABG HCO3 (21-25) mmol/L ABG Total CO2 (19-24) mmol/L ABG O2 Saturation (94-97) % Hemoglobin (13.0-17.5) gm/dL POC Glucose (mg/dL) 260 H 334 H 206 H (70-110) mg/dL 12/11/24 12/11/24 12/11/24 Range/Units 06:35 11:31 11:32 ABG pH 7.28 L (7.35-7.45) ABG pCO2 76 H* (35-45) mmHg ABG pO2 60 L (83-108) mmHg ABG HCO3 36 H (21-25) mmol/L ABG Total CO2 38 H (19-24) mmol/L ABG O2 Saturation 85.5 L (94-97) % Hemoglobin 9.0 L (13.0-17.5) gm/dL POC Glucose (mg/dL) 200 H 182 H (70-110) mg/dL Assessment and Plan (1) Septic olecranon bursitis of left elbow Current Visit: Yes Status: Acute Code(s): M71.122 - OTHER INFECTIVE BURSITIS, LEFT ELBOW SNOMED Code(s): 2123356256552050 (2) Allergy to cephalosporin Current Visit: No Status: Acute Code(s): Z88.1 - ALLERGY STATUS TO OTHER ANTIBIOTIC AGENTS SNOMED Code(s): 001009140 (3) MRSA (methicillin resistant Staphylococcus aureus) infection Current Visit: Yes Status: Acute Code(s): A49.02 - METHICILLIN RESIS STAPH INFECTION, UNSP SITE SNOMED Code(s): 435736845 (4) Influenza A Current Visit: Yes Status: Acute Code(s): J10.1 - FLU DUE TO OTH IDENT INFLUENZA VIRUS W OTH RESP MANIFEST SNOMED Code(s): 819741776 (5) Pneumonia Current Visit: No Status: Acute Code(s): J18.9 - PNEUMONIA, UNSPECIFIED ORGANISM SNOMED Code(s): 288492572 Plan: 1patient being admitted to the hospital for left elbow pain swelling redness he did have a wound with a culture positive for MRSA in the outpatient setting now with concern for left elbow septic olecranon bursitis for the patient received adequate IV vancomycin and did have healing of his left elbow ulcer/olecranon bursitis. 2patient with influenza A for which the patient has completed 5-day course of Tamiflu 3patient noted to have worsening of his respiratory status concerning for possible recurrent aspiration pneumonia we will discontinue Augmentin start the patient on Zosyn and monitor clinical course closely Dictation was produced using [employer] dictation software. please excuse any grammatical, word or spelling errors.
[2024-12-11] MEDS: PIPERACILLIN-TAZOBACTAM 3.375 GM in SODIUM CHLORIDE 0.9% 100 ML IVPB SCH (17:14)
[2024-12-11 18:43] LABS: Glucose,Whole Blood 146 mg/dL (70-110)
[2024-12-11 21:29] LABS: Glucose,Whole Blood 153 mg/dL (70-110)
--- NOTE | 2024-12-11 22:12 | PN ---
PROGRESS NOTE DATE OF SERVICE: 12/11/2024 CHIEF COMPLAINT: Mental status changes. HISTORY OF PRESENT ILLNESS: This gentleman is getting a little bit more lethargic and confused. PHYSICAL EXAMINATION: LUNGS: Breath sounds are heard bilaterally. CARDIAC: Normal. ABDOMEN: Soft, nontender. EXTREMITIES: Unchanged. IMPRESSION: 1. Mental status changes. 2. Encephalopathy. 3. Metastatic carcinoma of the lung. 4. Electrolyte imbalance. PLAN: No change in program. Prognosis continues to be poor due to his mental status issues. MMODL / IJN: [id number] /
[2024-12-12] MEDS: FUROSEMIDE 10 MG/ML 4 ML VIAL IV STA (00:29)
[2024-12-12 06:51] LABS: Anisocytosis Slight; HCT 36.5 % (39.0-53.0); HGB 10.8 gm/dL (13.0-17.5); Hypochromasia Marked; MCH 28.7 pg (25.0-35.0); MCHC 29.4 g/dL (31.0-37.0); MCV 97.4 fL (80.0-100.0); Macrocytosis Slight; Mean Platelet Volume 8.6; Platelet Count 311 k/uL (150-450); RBC 3.75 m/uL (4.30-5.90)
[2024-12-12 06:54] LABS: ALT 65 U/L (4-49); African American GFR (CKD) >90 (>60 ml/min/1.73 sqM); Albumin 3.2 g/dL (3.5-5.0); Anion Gap 5 mmol/L; Blood Urea Nitrogen 40 mg/dL (9-20); Calcium 9.2 mg/dL (8.4-10.2); Carbon Dioxide 38 mmol/L (22-30); Chloride 92 mmol/L (98-107); Glucose 181 mg/dL (74-99); Non-African American GFR(CKD) >90 (>60 ml/min/1.73 sqM); Sodium 135 mmol/L (137-145); Total Bilirubin 0.7 mg/dL (0.2-1.3); Total Protein 6.1 g/dL (6.3-8.2)
[2024-12-12 07:01] LABS: AST 37 U/L (17-59); Alkaline Phosphatase 90 U/L (38-126); Potassium 4.4 mmol/L (3.5-5.1)
[2024-12-12 08:15] LABS: Band Neutrophils % 1 %; Lymphocytes # (M) 0.32 k/uL (1.0-4.8); Metamyelocytes # (M) 0.11 k/uL (0); Metamyelocytes % 1 %; Monocytes # (M) 0.53 k/uL (0-1.0); Myelocytes # (M) 0.11 k/uL (0); Myelocytes % 1 %; Neutrophils % (M) 90 %; Nucleated Red Blood Cells 4 /100 WBC (0-0); Total Cells Counted 200; WBC 10.6 k/uL (3.8-10.6)
--- NOTE | 2024-12-12 08:16 | XR ---
EXAMINATION TYPE: XR chest 1V portable DATE OF EXAM: 12/12/2024 5:33 AM COMPARISON: Chest radiograph from one day prior. CLINICAL INDICATION: Male, 59 years old with history of f/u diffuse bilateral infiltrates; [facility] TECHNIQUE: XR chest 1V portable Frontal view of the chest. FINDINGS: Lungs/Pleura: Interval improved aeration of the airspace opacities of the lung compared to prior. The re is no evidence of pleural effusion, or pneumothorax. Pulmonary vascularity: Unremarkable. Heart/mediastinum: Cardiomediastinal silhouette is unremarkable. Musculoskeletal: No acute osseous pathology. IMPRESSION: Improved aeration of the airspace opacities throughout the lungs. [facility], , 12/12/2024 8:14 AM
[2024-12-12 13:01] LABS: Glucose,Whole Blood 163 mg/dL (70-110)
--- NOTE | 2024-12-12 15:22 | P.PN ---
Subjective Progress Note Date: 12/12/24 Principal diagnosis: SCLC, AMS In f/u saw pt in ICU, sent because of worsening resp status. He was on bipap, he is off now, on NC and doing ok. He opened eyes spontaneously to voice, answered questions appropriately, he is eating. Sitter still at bedside Objective - Vital Signs Vital signs: Vital Signs Temp 97.9 F 12/12/24 08:00 Pulse 112 H 12/12/24 13:00 Resp 6 L 12/12/24 13:00 BP 106/77 12/12/24 13:00 Pulse Ox 91 L 12/12/24 13:00 FiO2 50 12/12/24 06:00 Intake & Output 12/11/24 12/12/24 12/12/24 18:59 06:59 18:59 Intake Total 100 900 175 Output Total 2300 1550 Balance 100 -1400 -1375 Weight 174.4 kg 174.4 kg Intake: IV 100 400 175 0.9 Normal Saline 300 175 Piperacillin-Tazobactam 3 100 100 .375 gm In Sodium Chloride 0.9% 100 ml @ 25 mls/hr IVPB Q8H [facility] Rx#: [id number] Oral 500 Output: Urine 2300 1550 Other: Voiding Method External Catheter External Catheter # Voids 2 # Bowel Movements 1 ABP, PAP, CO, CI - Last Documented Arterial Blood Pressure 131/85 - Constitutional General appearance: Present: cooperative, no acute distress, thin - EENT Eyes: Present: anicteric sclerae, EOMI ENT: Present: hearing grossly normal - Respiratory Respiratory: bilateral: CTA, rales (few scattered) - Cardiovascular Rhythm: regular - Peripheral edema leg Peripheral Edema: bilateral: None - Integumentary Integumentary Comment(s): multiple skin lesions - Musculoskeletal Musculoskeletal: Present: generalized weakness - Psychiatric Psychiatric: Present: A&O x's 3, appropriate affect - Labs CBC & Chem 7: 12/12/24 05:53 12/12/24 05:53 Labs: Abnormal Lab Results - Last 24 Hours (Table) 12/11/24 12/11/24 12/12/24 Range/Units 18:41 21:28 05:53 RBC 3.75 L (4.30-5.90) m/uL Hgb 10.8 L (13.0-17.5) gm/dL Hct 36.5 L (39.0-53.0) % MCHC 29.4 L (31.0-37.0) g/dL RDW 17.0 H (11.5-15.5) % Neutrophils # (Manual) 9.60 H (1.3-7.7) k/uL Lymphocytes # (Manual) 0.32 L (1.0-4.8) k/uL Metamyelocytes # (Man) 0.11 H (0) k/uL Myelocytes # (Manual) 0.11 H (0) k/uL Nucleated RBCs 4 H (0-0) /100 WBC Sodium (137-145) mmol/L Chloride (98-107) mmol/L Carbon Dioxide (22-30) mmol/L BUN (9-20) mg/dL Glucose (74-99) mg/dL POC Glucose (mg/dL) 146 H 153 H (70-110) mg/dL ALT (4-49) U/L Total Protein (6.3-8.2) g/dL Albumin (3.5-5.0) g/dL 12/12/24 12/12/24 Range/Units 05:53 12:59 RBC (4.30-5.90) m/uL Hgb (13.0-17.5) gm/dL Hct (39.0-53.0) % MCHC (31.0-37.0) g/dL RDW (11.5-15.5) % Neutrophils # (Manual) (1.3-7.7) k/uL Lymphocytes # (Manual) (1.0-4.8) k/uL Metamyelocytes # (Man) (0) k/uL Myelocytes # (Manual) (0) k/uL Nucleated RBCs (0-0) /100 WBC Sodium 135 L (137-145) mmol/L Chloride 92 L (98-107) mmol/L Carbon Dioxide 38 H (22-30) mmol/L BUN 40 H (9-20) mg/dL Glucose 181 H (74-99) mg/dL POC Glucose (mg/dL) 163 H (70-110) mg/dL ALT 65 H (4-49) U/L Total Protein 6.1 L (6.3-8.2) g/dL Albumin 3.2 L (3.5-5.0) g/dL - Imaging and Cardiology Chest x-ray: report reviewed Assessment and Plan (1) Altered mental status Current Visit: Yes Status: Resolved Priority: High Code(s): R41.82 - ALTERED MENTAL STATUS, UNSPECIFIED SNOMED Code(s): 323341187 (2) Small cell lung cancer Current Visit: Yes Status: Acute Priority: Medium Code(s): C34.90 - MALIGNANT NEOPLASM OF UNSP PART OF UNSP BRONCHUS OR LUNG SNOMED Code(s): 487117773 Plan: Altered mental status -Patient has had similar episodes in the past, usually associated with seizure activity or disease progression in the brain. CT of the head without contrast this visit did not report any acute or new findings, no reports of seizure activity. -Cont treatment for infection as prescribed by Infectious disease. -Pt mental status has fluctuated this admit. He is in ICU currently for resp decline, he was on bipap, doing well now on O2 NC. He cont to have staff at bedside as he gets confused at times and is at risk for falling and hurting himself. Speech is understandable today. MRI brain was ordered, cancelled multiple times, likely due to pt not following commands. If pt cont to improve, can be done outpt. Small cell lung cancer -Diagnosis and treatment as stated in consult -Patient has had disease recurrence, all within the brain. Treated with radiation -Patient has been on maintenance immunotherapy treatment for almost 2 years, no progression of disease/new disease -Hold treatment for now, until acute condition treated and resolved -CT chest with contrast done, no new disease, small lilly pl effusions. -He will cont to have treatment f/u imaging as directed by Med Onc and Rad Onc He cont on abx for septic bursitis
--- NOTE | 2024-12-12 15:40 | P.PN ---
Subjective Progress Note Date: 12/12/24 Principal diagnosis: Reason for follow-up is left elbow septic olecranon bursitis/haemophilus pneumonia Patient is a 59-year-old male with a past medical history significant for hypertension seizure disorder atrial fibrillation he did have a metastatic lung cancer has been brought to the hospital for worsening swelling to the left elbow with a culture positive for MRSA concerning for septic olecranon bursitis. On today's evaluation that is 12/12/2024,the patient remains to be afebrile, patient is on 10 L high flow nasal cannula supplemental oxygen and seem to be breathing more comfortably compared to yesterday patient is lethargic unable to provide any history no vomiting or diarrhea has been reported. Patient white count is 10.6 creatinine 0.72 Objective - Vital Signs Vital signs: Vital Signs Temp 97.9 F 12/12/24 08:00 Pulse 112 H 12/12/24 13:00 Resp 6 L 12/12/24 13:00 BP 106/77 12/12/24 13:00 Pulse Ox 91 L 12/12/24 13:00 FiO2 50 12/12/24 06:00 Intake & Output 12/11/24 12/12/24 12/12/24 18:59 06:59 18:59 Intake Total 100 900 175 Output Total 2300 1550 Balance 100 -1400 -1375 Weight 174.4 kg 174.4 kg Intake: IV 100 400 175 0.9 Normal Saline 300 175 Piperacillin-Tazobactam 3 100 100 .375 gm In Sodium Chloride 0.9% 100 ml @ 25 mls/hr IVPB Q8H [facility] Rx#: [id number] Oral 500 Output: Urine 2300 1550 Other: Voiding Method External Catheter External Catheter # Voids 2 # Bowel Movements 1 ABP, PAP, CO, CI - Last Documented Arterial Blood Pressure 131/85 - Exam GENERAL DESCRIPTION: Middle-age male lying in bed in no distress RESPIRATORY SYSTEM: Unlabored breathing , decreased breath sounds at bases HEART: S1 S2 regular rate and rhythm , ABDOMEN: Soft , no tenderness EXTREMITIES: No edema feet - Labs CBC & Chem 7: 12/12/24 05:53 12/12/24 05:53 Labs: Abnormal Lab Results - Last 24 Hours (Table) 12/11/24 12/11/24 12/12/24 Range/Units 18:41 21:28 05:53 RBC 3.75 L (4.30-5.90) m/uL Hgb 10.8 L (13.0-17.5) gm/dL Hct 36.5 L (39.0-53.0) % MCHC 29.4 L (31.0-37.0) g/dL RDW 17.0 H (11.5-15.5) % Neutrophils # (Manual) 9.60 H (1.3-7.7) k/uL Lymphocytes # (Manual) 0.32 L (1.0-4.8) k/uL Metamyelocytes # (Man) 0.11 H (0) k/uL Myelocytes # (Manual) 0.11 H (0) k/uL Nucleated RBCs 4 H (0-0) /100 WBC Sodium (137-145) mmol/L Chloride (98-107) mmol/L Carbon Dioxide (22-30) mmol/L BUN (9-20) mg/dL Glucose (74-99) mg/dL POC Glucose (mg/dL) 146 H 153 H (70-110) mg/dL ALT (4-49) U/L Total Protein (6.3-8.2) g/dL Albumin (3.5-5.0) g/dL 12/12/24 12/12/24 Range/Units 05:53 12:59 RBC (4.30-5.90) m/uL Hgb (13.0-17.5) gm/dL Hct (39.0-53.0) % MCHC (31.0-37.0) g/dL RDW (11.5-15.5) % Neutrophils # (Manual) (1.3-7.7) k/uL Lymphocytes # (Manual) (1.0-4.8) k/uL Metamyelocytes # (Man) (0) k/uL Myelocytes # (Manual) (0) k/uL Nucleated RBCs (0-0) /100 WBC Sodium 135 L (137-145) mmol/L Chloride 92 L (98-107) mmol/L Carbon Dioxide 38 H (22-30) mmol/L BUN 40 H (9-20) mg/dL Glucose 181 H (74-99) mg/dL POC Glucose (mg/dL) 163 H (70-110) mg/dL ALT 65 H (4-49) U/L Total Protein 6.1 L (6.3-8.2) g/dL Albumin 3.2 L (3.5-5.0) g/dL Assessment and Plan (1) Septic olecranon bursitis of left elbow Current Visit: Yes Status: Acute Code(s): M71.122 - OTHER INFECTIVE BURSITIS, LEFT ELBOW SNOMED Code(s): 0619850422820358 (2) Allergy to cephalosporin Current Visit: No Status: Acute Code(s): Z88.1 - ALLERGY STATUS TO OTHER ANTIBIOTIC AGENTS SNOMED Code(s): 587920717 (3) MRSA (methicillin resistant Staphylococcus aureus) infection Current Visit: Yes Status: Acute Code(s): A49.02 - METHICILLIN RESIS STAPH INFECTION, UNSP SITE SNOMED Code(s): 915618641 (4) Influenza A Current Visit: Yes Status: Acute Code(s): J10.1 - FLU DUE TO OTH IDENT INFLUENZA VIRUS W OTH RESP MANIFEST SNOMED Code(s): 660555563 (5) Pneumonia Current Visit: No Status: Acute Code(s): J18.9 - PNEUMONIA, UNSPECIFIED ORGANISM SNOMED Code(s): 507039486 Plan: 1patient being admitted to the hospital for left elbow pain swelling redness he did have a wound with a culture positive for MRSA in the outpatient setting now with concern for left elbow septic olecranon bursitis for the patient received adequate IV vancomycin and did have healing of his left elbow ulcer/olecranon bursitis. 2patient with influenza A for which the patient has completed 5-day course of Tamiflu 3patient did have some improvement in his respiratory status we will continue patient on Zosyn and monitor clinical course closely Dictation was produced using [employer] dictation software. please excuse any gramma tical, word or spelling errors. Time with Patient: Less than 30
[2024-12-12 16:05] LABS: Glucose,Whole Blood 277 mg/dL (70-110)
--- NOTE | 2024-12-12 17:54 | CA ---
Transthoracic Echo Report Name: Royce Riddle Age: 59 Gender: M : 1965 Exam Date: 12/12/2024 13:50 Exam Location: [facility] Ht (in): 70 Wt (lb): 155 Ordering Physician: Anais Sandoval MD Attending/Referring Phys: Top Cutter Sonam Lynn RDCS Procedure CPT: Indications: LV function Cardiac Hx: Technical Quality: Good Contrast 1: Total Dose (mL): Contrast 2: Total Dose (mL): MEASUREMENTS (Male / Female) Normal Values 2D ECHO LV Diastolic Diameter PLAX 4.9 cm 4.2 - 5.9 / 3.9 - 5.3 cm LV Systolic Diameter PLAX 3.4 cm IVS Diastolic Thickness 1.2 cm 0.6 - 1.0 / 0.6 - 0.9 cm LVPW Diastolic Thickness 1.1 cm 0.6 - 1.0 / 0.6 - 0.9 cm LV Relative Wall Thickness 0.5 LVOT Diameter 2.4 cm LV Diastolic Volume MOD BP 118.7 cm??? 67 - 155 / 56 - 104 cm??? LV Systolic Volume MOD BP 48.3 cm??? 22 - 58 / 19 - 49 cm??? LV Ejection Fraction MOD BP 59.3 % >= 55 % LV Cardiac Index MOD BP 3704.0 cm???/min???m??? LV Diastolic Volume MOD 4C 102.0 cm??? LV Systolic Volume MOD 4C 39.8 cm??? LV Ejection Fraction MOD 4C 61.0 % LV Cardiac Index MOD 4C 3269.3 cm???/min???m??? LV Diastolic Length 4C 8.2 cm LV Systolic Length 4C 7.2 cm LV Diastolic Volume MOD 2C 134.2 cm??? LV Systolic Volume MOD 2C 57.4 cm??? LV Ejection Fraction MOD 2C 57.2 % LV Cardiac Index MOD 2C 4036.8 cm???/min???m??? LV Diastolic Length 2C 8.6 cm LV Systolic Length 2C 7.4 cm LA Volume 94.1 cm??? 18 - 58 / 22 - 52 cm??? LA Volume Index 50.5 cm???/m??? 16 - 28 cm???/m??? M-MODE LV Diastolic Diameter MM 4.9 cm 4.2 - 5.9 / 3.9 - 5.3 cm LV Systolic Diameter MM 3.4 cm LV Cardiac Index MM Teich 3528.8 cm???/min???m??? IVS Diastolic Thickness MM 1.0 cm 0.6 - 1.0 / 0.6 - 0.9 cm LVPW Diastolic Thickness MM 1.3 cm 0.6 - 1.0 / 0.6 - 0.9 cm LV Relative Wall Thickness MM 0.5 0.24 - 0.42 / 0.22 - 0.42 LV Mass Index MM 113.3 g/m??? 49 - 115 / 43 - 95 g/m??? DOPPLER AV Peak Velocity 91.8 cm/s AV Peak Gradient 3.4 mmHg AV Mean Velocity 64.4 cm/s AV Mean Gradient 1.8 mmHg AV Velocity Time Integral 13.2 cm LVOT Peak Velocity 68.3 cm/s LVOT Peak Gradient 1.9 mmHg LVOT Velocity Time Integral 10.3 cm LVOT Stroke Volume 46.7 cm??? LVOT Stroke Volume Index 24.9 ml/m??? LVOT Cardiac Index 2456.8 cm???/min???m??? AV Area Cont Eq vti 3.5 cm??? AV Area Cont Eq pk 3.4 cm??? TR Peak Velocity 274.2 cm/s TR Peak Gradient 30.1 mmHg Right Atrial Pressure 20.0 mmHg Pulmonary Artery Systolic Pressu 50.1 mmHg Right Ventricular Systolic Press 50.1 mmHg PV Peak Velocity 62.5 cm/s PV Peak Gradient 1.6 mmHg FINDINGS Left Ventricle Left ventricular ejection fraction is estimated at 55-60 %. Normal left ventricular systolic function with no obvious regional wall motion abnormalities. Left ventricular cavity size normal. Mildly increased left ventricular wall thickness. Right Ventricle Severe right ventricular dilatation. Moderately reduced right ventricular global systolic function. Moderate pulmonary hypertension. Right Atrium Severe right atrial dilatation. Left Atrium Severely increased left atrial volume. Mildly increased left atrial area. Mitral Valve Mitral valve thickened. No evidence for mitral valve prolapse. No mitral stenosis. Moderate mitral regurgitation. Aortic Valve Trileaflet aortic valve. Aortic valve sclerosis. No aortic stenosis. Mild to moderate aortic regurgitation. Tricuspid Valve Structurally normal tricuspid valve. No tricuspid stenosis. Moderate tricuspid regurgitation. Pulmonic Valve Structurally normal pulmonic valve. No pulmonic stenosis. No pulmonic regurgitation. Pericardium No pericardial effusion. Aorta Mildly dilated aortic annulus. Mildly dilated proximal ascending aorta (tube). CONCLUSIONS 1. Normal left ventricular size and systolic function 2. Dilated right ventricle with hypokinesis 3. Moderate mitral and tricuspid regurgitation with moderate pulmonary hypertension 4. Mild to moderate aortic regurgitation Previewed by: Dr. Chevy Nettles MD (Electronically Signed) Final Date: 12 December 2024 17:53
--- NOTE | 2024-12-12 18:49 | P.PN ---
Subjective Progress Note Date: 12/12/24 On today's evaluation of 12/09/2024, the patient remains confused, lethargic, at times agitated, given Haldol and at the time of my evaluation, the patient was essentially lethargic somnolent and difficult to arouse. He was unable to communicate. He has a sitter at the bedside. Noted, the patient is quite debilitated. This patient has history of metastatic small cell lung cancer receives therapy back in 2021. Please note my detailed description and progression of his small cell lung cancer. The most recent CAT scan of the chest that was done on 11/18/2024 showed no disease progression. However, during this current hospital stay, the patient developed an extensive bilateral pneumonia right more than left. He required intubation mechanical ventilation and he was ultimately extubated on 11/29/2024. The most recent chest x-ray from him was on 12/03/2024 still showing extensive consolidation in the lungs bilaterally. At this point, the patient is on 8 L of oxygen by nasal cannula with a pulse ox of 97%. His oral intake is essentially limited based on my conversations with the nursing staff. He remains on Augmentin as the patient was found to have haemophilus influenza on his sputum on 11/26/2024 and this will be continued. Remains on IV Solu-Medrol 60 mg every 6 hours. Remains on DuoNeb nebulized treatments [id number]. Remains on a combination of Perforomist and Pulmicort nebulized treatments twice a day. Remains on IV Keppra. Remains encephalopathic and extensively debilitated. He is on amiodarone regarding chronic atrial fibrillation. He is also on metoprolol 100 mg p.o. daily. And atrial fibrillation. No anticoagulants for now. On 12/10/2024, the patient remains altered and confused. He is having ongoing cough and congestion and respiratory distress even at rest. His oxygenation is also gotten worse and the patient is currently on 15 L of oxygen by nasal cannula with a pulse ox of 92%. I repeated the chest x-ray this morning and the patient continues to have stable multifocal patchy airspace disease more so in the right upper lobe. The most recent sputum sample from 11/26/2024 was positive for haemophilus influenza and the patient was treated accordingly and he is currently still on oral Augmentin. Remains on DuoNeb updrafts. Remains on Perforomist and Pulmicort nebulized treatments twice a day. Remains on IV Solu- Medrol 60 mg every 6 hours. Is also known to have metastatic small cell lung cancer. Extremely debilitated. Weak. Remains in atrial fibrillation. On 12/11/2024, the patient was quite restless and lethargic on the medical floor. I saw this patient earlier this morning and a blood gas was done that showed a pH of 7.28 with a pCO2 of 76 and pO2 of 60 and this was done while the patient was being on 15 L of oxygen by nasal cannula. A follow-up chest x-ray was also done and it shows diffuse bilateral airspace disease with probably some interval worsening. Based on that, the patient was transferred to the intensive care unit for further monitoring. Contemplating intubation mechanical ventilation. His CODE STATUS remains full. He is going to be monitored very closely. Unable to give a sputum sample and the most recent sputum sample was positive for haemophilus influenza. The patient remains on broad-spectrum antibiotics and the patient was switched again to IV Zosyn. Rest of the medications remain unchanged. Remains on bronchodilators. Remains on steroids. Very much debilitated at this point in time. On 12/12/2024, the patient is being seen for a follow-up. Significant improvement compared to yesterday. Noted I was contemplating on intubating this patient. However, the patient did very well and seems to be much more calm and comfortable and breathing is nonlabored on today's evaluation. Furthermore, the patient denies having any significant shortness of breath. A follow-up chest x- ray was obtained today and it shows interval improvement in aeration and improved airspace disease bilaterally. The patient was on 15 L of oxygen by nasal cannula and FiO2 is being gradually weaned off. The patient has diuresed nicely with IV Lasix and this will be continued. Echocardiogram was also o btained today and showed ejection fraction 55 to 60%. There is severe RV dilatation and moderate reduced RV global function with moderate degree of pulm hypertension with estimated right ventricular systolic pressure of around 50. There is also moderate mitral and tricuspid regurgitation and mild to moderate aortic regurgitation. Blood work from today shows a white cell count of 10.6, hemoglobin 10.8 and a platelet count of 311. BUN is 40 with a creatinine of 0.7. Sodium is 135 and a serum bicarb is at 35. The fluid balance over the past 24 hours has been -1.3 L. No focal neurological deficits. Objective - Vital Signs Vital signs: Vital Signs Temp 98.0 F 12/12/24 04:00 Pulse 101 H 12/12/24 09:01 Resp 20 12/12/24 07:00 BP 111/98 12/12/24 07:00 Pulse Ox 95 12/12/24 08:39 FiO2 50 12/12/24 06:00 Intake & Output 12/11/24 12/12/24 12/12/24 18:59 06:59 18:59 Intake Total 100 900 25 Output Total 2300 800 Balance 100 -1400 -775 Weight 174.4 kg Intake: IV 100 400 25 0.9 Normal Saline 300 25 Piperacillin-Tazobactam 3 100 100 .375 gm In Sodium Chloride 0.9% 100 ml @ 25 mls/hr IVPB Q8H [facility] Rx#: [id number] Oral 500 Output: Urine 2300 800 Other: Voiding Method External Catheter External Catheter # Voids 2 # Bowel Movements 1 ABP, PAP, CO, CI - Last Documented Arterial Blood Pressure 131/85 - Exam No acute distress, awake alert and communicating. No major respiratory distress at rest. HEENT examination is grossly unremarkable. Mucous membranes are moist. No oral lesions. Neck supple. Full range of motion. No adenopathy thyromegaly or neck vein distention. Cardiovascular examination reveals an irregular rhythm and rate. S1-S2 normal. No S3 or S4. No discernible murmur noted. Heart sounds are distant. Lungs reveal tattered rhonchi. Diminished breath sounds on the left. No wheezes or crackles. Abdomen soft bowel sounds are heard. No masses or tenderness. Extremities are intact. No cyanosis clubbing or edema. Skin reveals a left elbow with open superficial wound. Neurologic examination the patient is encephalopathic, confused, received Haldol this morning to control his restlessness and agitation. - Labs CBC & Chem 7: 12/12/24 05:53 12/12/24 05:53 Labs: Abnormal Lab Results - Last 24 Hours (Table) 12/11/24 12/11/24 12/11/24 Range/Units 11:31 11:32 18:41 RBC (4.30-5.90) m/uL Hgb (13.0-17.5) gm/dL Hct (39.0-53.0) % MCHC (31.0-37.0) g/dL RDW (11.5-15.5) % Neutrophils # (Manual) (1.3-7.7) k/uL Lymphocytes # (Manual) (1.0-4.8) k/uL Metamyelocytes # (Man) (0) k/uL Myelocytes # (Manual) (0) k/uL Nucleated RBCs (0-0) /100 WBC ABG pH 7.28 L (7.35-7.45) ABG pCO2 76 H* (35-45) mmHg ABG pO2 60 L (83-108) mmHg ABG HCO3 36 H (21-25) mmol/L ABG Total CO2 38 H (19-24) mmol/L ABG O2 Saturation 85.5 L (94-97) % Hemoglobin 9.0 L (13.0-17.5) gm/dL Sodium (137-145) mmol/L Chloride (98-107) mmol/L Carbon Dioxide (22-30) mmol/L BUN (9-20) mg/dL Glucose (74-99) mg/dL POC Glucose (mg/dL) 182 H 146 H (70-110) mg/dL ALT (4-49) U/L Total Protein (6.3-8.2) g/dL Albumin (3.5-5.0) g/dL 12/11/24 12/12/24 12/12/24 Range/Units 21:28 05:53 05:53 RBC 3.75 L (4.30-5.90) m/uL Hgb 10.8 L (13.0-17.5) gm/dL Hct 36.5 L (39.0-53.0) % MCHC 29.4 L (31.0-37.0) g/dL RDW 17.0 H (11.5-15.5) % Neutrophils # (Manual) 9.60 H (1.3-7.7) k/uL Lymphocytes # (Manual) 0.32 L (1.0-4.8) k/uL Metamyelocytes # (Man) 0.11 H (0) k/uL Myelocytes # (Manual) 0.11 H (0) k/uL Nucleated RBCs 4 H (0-0) /100 WBC ABG pH (7.35-7.45) ABG pCO2 (35-45) mmHg ABG pO2 (83-108) mmHg ABG HCO3 (21-25) mmol/L ABG Total CO2 (19-24) mmol/L ABG O2 Saturation (94-97) % Hemoglobin (13.0-17.5) gm/dL Sodium 135 L (137-145) mmol/L Chloride 92 L (98-107) mmol/L Carbon Dioxide 38 H (22-30) mmol/L BUN 40 H (9-20) mg/dL Glucose 181 H (74-99) mg/dL POC Glucose (mg/dL) 153 H (70-110) mg/dL ALT 65 H (4-49) U/L Total Protein 6.1 L (6.3-8.2) g/dL Albumin 3.2 L (3.5-5.0) g/dL Assessment and Plan Plan: Acute hypoxemic respiratory failure, with bilateral pneumonia requiring intubation mechanical ventilation. The patient was extubated on 11/29/2024. Sputum sample was positive for haemophilus influenza. Most recent chest x-ray was done on 12/03/2024 still showing upper lobe consolidation with. Poor ability to perform pulmonary toileting. Previous echocardiogram from December 2023 had shown a preserved LV function with an ejection fraction of 55 to 60%. There is mild pulmonary hypertension and moderate degree of mitral regurgitation. CAT scan of the chest done on 11/18/2024 showed small bilateral pleural effusion with adjacent atelectasis. No evidence of any tumor progression. Overall respiratory status remains stable. Repeat chest x-ray from 12/10/2024 shows similar stable diffuse multifocal airspace disease more so in the right upper lobe. Subsequently, the patient oxygenation got worse and the patient developed an acute respiratory acidosis and based on that the patient was transferred to the intensive care unit. The patient was started on diuretics and follow-up chest x-ray from 12/29/2024 shows interval improvement in aeration bilaterally and the patient seems to be more comfortable and FiO2 is being gradually weaned down. olecranon bursitis, wound culture positive for methicillin-resistant Staphylococcus aureus. The patient was treated with vancomycin Atrial fibrillation with controlled ventricular response, rate is under better control although the patient continues to be tachycardic. The patient remains on a combination of amiodarone and metoprolol Metastatic small cell lung cancer, receiving immunotherapy and most recent CAT scan of the brain and a CAT scan of the chest showed no evidence of any active disease. Presented to [facility] on 04/22/22 with increased confusion and disorientation. CT brain without contrast noted 2 large hypodense lesions in bilateral parietal lobes measuring 4.9 x 3.2 cm on the left and 3.3 x 3.1 cm on the right. Initial CXR showed 2.6 cm mass in left mid lung field. He was started on IV dexamethasone. MRI brain on 04/23/22 noted a left 4.9 x 4.8 x 4 cm left cerberal hemisphere lesion and 4.1 x 4.1 cm right cerebral hemisphere lesion. A left cerebellum lesion measured 1.4 x 1.2 x 0.9 cm along with a potential left cerebellar peduncle lesion measuring 5 mm. Transferred to [facility] where he underwent bilateral parietal crainiotomy on 05/06/22, path + lung primary with mixed small cell and adenocarcinoma histology (TTF-1, synaptophysin, chromogranin positive; CK20 positive in small cell component). PET/CT on 05/24/22 reported posterior lateral SERAFIN lung lesion with SUV 4.79, superior left hilar lymphadenopathy with SUV 4.97, and punctate posterior right lung nodule with SUV 1.12. Uptake was also noted at the costovertebral junction and posterior chest, but unclear if this was malignant in nature. He had SRS at [facility] from 05/30/22-06/07/22 receiving 57 Gy in 8 fractions. Had significant improvement in his vision since SRS. He received 4 cycles of carboplatin and etoposide from 07/05/22-09/08/22. Staging CT scans on 09/19/2022 revealed no evidence of disease progression with partial response. Brain MRI July 2022 with no evidence of disease recurrence.Brain MRI on 07/06/2023 revealed no evidence of intracranial metastases. Repeat brain MRI on 08/28/2023 noted new a nterior left temporal lobe lesion measuring 1.4 cm. He received 3 fractions of SRS with 27 Gordon from 09/04/2023 through 09/06/2023. Staging CT scans on 10/23/2023 revealed no evidence of metastatic disease. He was admitted to [facility] on 11/07/2023 with seizure and altered mental status was found to have new right temporal lobe lesion measuring 1.2 cm. Completed 3 fractions of SRS to the temporal lobe lesion in early December 2023. He restarted atezolizumab on 12/27/2023. Staging CT scans on 03/06/2024 and brain MRI on 03/18/2024 revealed no evidence of recurrent or metastatic disease. He was previously noted to have cysts of the liver with no lesions concerning for definitive metastatic dise ase.He did have hospitalizations in May and June 2024 where brain MRI on 05/17/2024 noted stable intracranial lesions that were treated. CT abdomen/pelvis on 06/13/2024 revealed no evidence of malignancy with stable hepatic cysts. CT chest performed on 08/05/2024 revealed no evidence of metast atic disease. He is s/p 25 cycles of maintenance tecentriq. CAT scan of the chest done on 11/18/2024 shows no evidence of any residual tumor or tumor progression. Delirium,, lethargic, weakness and episodes of confusion. The patient also demonstrate generalized weakness.. Improved on today's evaluation and the patient seems to be much moreappropriate and communicative. Hypertension. Elevated troponins, possibly secondary to supply/demand mismatch. Altered mental status, under investigation, brain CT did not show any acute intracranial bleeding or mass effect. History of seizure disorder. The patient is currently on Keppra. History of polysubstance abuse. Plan: Keep the patient intensive care unit No need for intubation or mechanical ventilation Continue Lasix 40 mg IV every 12 hours Diamox 500 mg IV every 12 hours Monitor fluid balance and electrolytes and serum bicarb Monitor mental status as the patient received a much less encephalopathic compared to yesterday Chest x-ray improved Repeat chest x-ray in the morning Repeat blood gas in the morning Wean down FiO2 as tolerated to maintain saturation above 90% CT of the brain done on 11/27/2024 showed no enhancing lesions to suggest metastatic disease. Unable to perform an MRI. Continue bronchodilators Continue IV Solu-Medrol Management of atrial fibrillation the patient is currently on amiodarone 200 mg p.o., p.o. twice daily and metoprolol 100 mg p.o. daily. No anticoagulants Oncology follow-up ID follow-up Monitor mental status Will continue to follow Prognosis remains extremely poor based on above-mentioned comorbidities. Evaluation was done 35 minutes. Time with Patient: Greater than 30
[2024-12-12 21:27] LABS: Glucose,Whole Blood 502 mg/dL (70-110)
[2024-12-12 21:36] LABS: Glucose,Whole Blood 255 mg/dL (70-110)
[2024-12-12] MEDS: FUROSEMIDE 10 MG/ML 2 ML VIAL IV SCH (21:49)
--- NOTE | 2024-12-13 00:39 | PN ---
PROGRESS NOTE CHIEF COMPLAINT: Mental status changes, electrolyte imbalance, CA of the lung. HISTORY OF PRESENT ILLNESS: This gentleman has more and more lethargic and was moved back to ICU. At present time, he is quite lethargic. PHYSICAL EXAMINATION: LUNGS: Breath sounds are heard bilaterally. He is in atrial fibrillation. EXTREMITIES: Unchanged. IMPRESSION: 1. Mental status changes. 2. Carcinoma of the lung. 3. Atrial fibrillation. 4. Pneumonitis. 5. Sepsis. PLAN: IV fluids and continue to monitor his neurologic status. MMODL / IJN: [id number] /
[2024-12-13 03:16] LABS: Potassium 3.2 mmol/L (3.5-5.1)
[2024-12-13 03:17] LABS: African American GFR (CKD) >90 (>60 ml/min/1.73 sqM); Anion Gap 1 mmol/L; Blood Urea Nitrogen 39 mg/dL (9-20); Calcium 8.5 mg/dL (8.4-10.2); Carbon Dioxide 39 mmol/L (22-30); Chloride 94 mmol/L (98-107); Glucose 193 mg/dL (74-99); Non-African American GFR(CKD) 80 (>60 ml/min/1.73 sqM); Sodium 134 mmol/L (137-145)
[2024-12-13] MEDS ORDERED: Potassium Replacement Protocol 1 EACH MISC MISCELLANE PRN (03:58)
[2024-12-13 04:28] LABS: Anisocytosis Slight; HCT 35.5 % (39.0-53.0); HGB 10.4 gm/dL (13.0-17.5); Hypochromasia Marked; MCHC 29.4 g/dL (31.0-37.0); MCV 98.9 fL (80.0-100.0); Macrocytosis Slight; Mean Platelet Volume 9.4; Platelet Count 319 k/uL (150-450); RBC 3.59 m/uL (4.30-5.90); RDW 16.9 % (11.5-15.5)
[2024-12-13] MEDS: POTASSIUM CHLORIDE ER 20 MEQ TAB.ER PO SCH ×4 (04:48→20:47)
[2024-12-13 06:20] LABS: Myelocytes % 1 %; Neutrophils % (M) 95 %; Nucleated Red Blood Cells 5 /100 WBC (0-0); Total Cells Counted 200
[2024-12-13 06:21] LABS: Basophils # (M) 0.09 k/uL (0-0.2); Lymphocytes # (M) 0.36 k/uL (1.0-4.8); Monocytes # (M) 0.09 k/uL (0-1.0); Myelocytes # (M) 0.09 k/uL (0); Neutrophils # (M) 8.55 k/uL (1.3-7.7)
[2024-12-13 06:22] LABS: Poikilocytosis (M) Present
--- NOTE | 2024-12-13 08:00 | XR ---
EXAMINATION TYPE: XR chest 1V portable DATE OF EXAM: 12/13/2024 5:33 AM COMPARISON: Chest radiograph from one day prior. CLINICAL INDICATION: Male, 59 years old with history of f/u diffuse bilateral infiltrates; [facility] TECHNIQUE: XR chest 1V portable Frontal view of the chest. FINDINGS: Lungs/Pleura: Stable aeration of lungs on today's exam with persistent airspace opacities scattered t hroughout the right upper lung. No evidence of pneumothorax or large pleural effusion. Pulmonary vascularity: Unremarkable. Heart/mediastinum: Cardiomediastinal silhouette is unremarkable. Musculoskeletal: No acute osseous pathology. Other findings: None IMPRESSION: Stable aeration of the lungs with persistent multifocal airspace opacities. [facility], , 12/13/2024 7:57 AM
[2024-12-13 11:02] LABS: ABG Base Excess 9.4 mmol/L; ABG HCO3 37 mmol/L (21-25); ABG Oxygen Saturation 91.6 % (94-97); ABG PCO2 70 mmHg (35-45); ABG PH 7.34 (7.35-7.45); ABG PO2 66 mmHg (83-108); ABG TCO2 39 mmol/L (19-24)
[2024-12-13 11:23] LABS: Glucose,Whole Blood 265 mg/dL (70-110)
[2024-12-13 13:08] LABS: Allen Test Performed? yes
--- NOTE | 2024-12-13 15:31 | P.PN ---
Subjective Progress Note Date: 12/13/24 Principal diagnosis: Reason for follow-up is left elbow septic olecranon bursitis/haemophilus pneumonia Patient is a 59-year-old male with a past medical history significant for hypertension seizure disorder atrial fibrillation he did have a metastatic lung cancer has been brought to the hospital for worsening swelling to the left elbow with a culture positive for MRSA concerning for septic olecranon bursitis. On today's evaluation that is 12/13/2024, the patient continues to be afebrile, the patient is on 6 L nasal oxygen and breathing comfortably currently sleepy in no distress no other changes reported by the nurse taking care of the patient. Patient white count normalized to 9.0 creatinine 1.03 Objective - Vital Signs Vital signs: Vital Signs Temp 97.6 F 12/13/24 12:00 Pulse 96 12/13/24 15:26 Resp 12 12/13/24 15:00 BP 112/78 12/13/24 15:00 Pulse Ox 95 12/13/24 15:00 FiO2 50 12/12/24 06:00 Intake & Output 12/12/24 12/13/24 12/13/24 18:59 06:59 18:59 Intake Total 300 1025 200 Output Total 1950 2500 3150 Balance -5769 -8691 -7200 Weight 174.4 kg 77.6 kg Intake: IV 300 275 200 0.9 Normal Saline 300 275 200 Oral 750 Output: Urine 1950 2500 3150 Other: Voiding Method External Catheter External Catheter ABP, PAP, CO, CI - Last Documented Arterial Blood Pressure 131/85 - Exam GENERAL DESCRIPTION: Middle-age male lying in bed in no distress RESPIRATORY SYSTEM: Unlabored breathing , decreased breath sounds at bases HEART: S1 S2 regular rate and rhythm , ABDOMEN: Soft , no tenderness EXTREMITIES: No edema feet - Labs CBC & Chem 7: 12/13/24 02:43 12/13/24 14:11 Labs: Abnormal Lab Results - Last 24 Hours (Table) 12/12/24 12/12/24 12/12/24 Range/Units 16:03 21:25 21:34 RBC (4.30-5.90) m/uL Hgb (13.0-17.5) gm/dL Hct (39.0-53.0) % MCHC (31.0-37.0) g/dL RDW (11.5-15.5) % Neutrophils # (Manual) (1.3-7.7) k/uL Lymphocytes # (Manual) (1.0-4.8) k/uL Myelocytes # (Manual) (0) k/uL Nucleated RBCs (0-0) /100 WBC ABG pH (7.35-7.45) ABG pCO2 (35-45) mmHg ABG pO2 (83-108) mmHg ABG HCO3 (21-25) mmol/L ABG Total CO2 (19-24) mmol/L ABG O2 Saturation (94-97) % Hemoglobin (13.0-17.5) gm/dL Sodium (137-145) mmol/L Potassium (3.5-5.1) mmol/L Chloride (98-107) mmol/L Carbon Dioxide (22-30) mmol/L BUN (9-20) mg/dL Glucose (74-99) mg/dL POC Glucose (mg/dL) 277 H 502 H* 255 H (70-110) mg/dL 12/13/24 12/13/24 12/13/24 Range/Units 02:43 02:43 10:48 RBC 3.59 L (4.30-5.90) m/uL Hgb 10.4 L (13.0-17.5) gm/dL Hct 35.5 L (39.0-53.0) % MCHC 29.4 L (31.0-37.0) g/dL RDW 16.9 H (11.5-15.5) % Neutrophils # (Manual) 8.55 H (1.3-7.7) k/uL Lymphocytes # (Manual) 0.36 L (1.0-4.8) k/uL Myelocytes # (Manual) 0.09 H (0) k/uL Nucleated RBCs 5 H (0-0) /100 WBC ABG pH 7.34 L (7.35-7.45) ABG pCO2 70 H (35-45) mmHg ABG pO2 66 L (83-108) mmHg ABG HCO3 37 H (21-25) mmol/L ABG Total CO2 39 H (19-24) mmol/L ABG O2 Saturation 91.6 L (94-97) % Hemoglobin 10.7 L (13.0-17.5) gm/dL Sodium 134 L (137-145) mmol/L Potassium 3.2 L (3.5-5.1) mmol/L Chloride 94 L (98-107) mmol/L Carbon Dioxide 39 H (22-30) mmol/L BUN 39 H (9-20) mg/dL Glucose 193 H (74-99) mg/dL POC Glucose (mg/dL) (70-110) mg/dL 12/13/24 12/13/24 Range/Units 11:22 14:11 RBC (4.30-5.90) m/uL Hgb (13.0-17.5) gm/dL Hct (39.0-53.0) % MCHC (31.0-37.0) g/dL RDW (11.5-15.5) % Neutrophils # (Manual) (1.3-7.7) k/uL Lymphocytes # (Manual) (1.0-4.8) k/uL Myelocytes # (Manual) (0) k/uL Nucleated RBCs (0-0) /100 WBC ABG pH (7.35-7.45) ABG pCO2 (35-45) mmHg ABG pO2 (83-108) mmHg ABG HCO3 (21-25) mmol/L ABG Total CO2 (19-24) mmol/L ABG O2 Saturation (94-97) % Hemoglobin (13.0-17.5) gm/dL Sodium (137-145) mmol/L Potassium 3.2 L (3.5-5.1) mmol/L Chloride (98-107) mmol/L Carbon Dioxide (22-30) mmol/L BUN (9-20) mg/dL Glucose (74-99) mg/dL POC Glucose (mg/dL) 265 H (70-110) mg/dL Assessment and Plan (1) Septic olecranon bursitis of left elbow Current Visit: Yes Status: Acute Code(s): M71.122 - OTHER INFECTIVE BURSITIS, LEFT ELBOW SNOMED Code(s): 1072311389134973 (2) Allergy to cephalosporin Current Visit: No Status: Acute Code(s): Z88.1 - ALLERGY STATUS TO OTHER ANTIBIOTIC AGENTS SNOMED Code(s): 207349690 (3) MRSA (methicillin resistant Staphylococcus aureus) infection Current Visit: Yes Status: Acute Code(s): A49.02 - METHICILLIN RESIS STAPH INFECTION, UNSP SITE SNOMED Code(s): 389931279 (4) Influenza A Current Visit: Yes Status: Acute Code(s): J10.1 - FLU DUE TO OTH IDENT INFLUENZA VIRUS W OTH RESP MANIFEST SNOMED Code(s): 869188301 (5) Pneumonia Current Visit: No Status: Acute Code(s): J18.9 - PNEUMONIA, UNSPECIFIED ORGANISM SNOMED Code(s): 363787858 Plan: 1patient being admitted to the hospital for left elbow pain swelling redness he did have a wound with a culture positive for MRSA in the outpatient setting now with concern for left elbow septic olecranon bursitis for the patient received adequate IV vancomycin and did have healing of his left elbow ulcer/olecranon bursitis. 2patient with influenza A for which the patient has completed 5-day course of Tamiflu 3patient is afebrile and the patient white count normalized to continue Zosyn and monitor clinical course closely Dictation was produced using [employer] dictation software. please excuse any grammatical, word or spelling errors. Time with Patient: Less than 30
[2024-12-13 15:48] LABS: Glucose,Whole Blood 143 mg/dL (70-110)
--- NOTE | 2024-12-13 16:23 | P.PN ---
Subjective Progress Note Date: 12/13/24 On today's evaluation of 12/09/2024, the patient remains confused, lethargic, at times agitated, given Haldol and at the time of my evaluation, the patient was essentially lethargic somnolent and difficult to arouse. He was unable to communicate. He has a sitter at the bedside. Noted, the patient is quite debilitated. This patient has history of metastatic small cell lung cancer receives therapy back in 2021. Please note my detailed description and progression of his small cell lung cancer. The most recent CAT scan of the chest that was done on 11/18/2024 showed no disease progression. However, during this current hospital stay, the patient developed an extensive bilateral pneumonia right more than left. He required intubation mechanical ventilation and he was ultimately extubated on 11/29/2024. The most recent chest x-ray from him was on 12/03/2024 still showing extensive consolidation in the lungs bilaterally. At this point, the patient is on 8 L of oxygen by nasal cannula with a pulse ox of 97%. His oral intake is essentially limited based on my conversations with the nursing staff. He remains on Augmentin as the patient was found to have haemophilus influenza on his sputum on 11/26/2024 and this will be continued. Remains on IV Solu-Medrol 60 mg every 6 hours. Remains on DuoNeb nebulized treatments [id number]. Remains on a combination of Perforomist and Pulmicort nebulized treatments twice a day. Remains on IV Keppra. Remains encephalopathic and extensively debilitated. He is on amiodarone regarding chronic atrial fibrillation. He is also on metoprolol 100 mg p.o. daily. And atrial fibrillation. No anticoagulants for now. On 12/10/2024, the patient remains altered and confused. He is having ongoing cough and congestion and respiratory distress even at rest. His oxygenation is also gotten worse and the patient is currently on 15 L of oxygen by nasal cannula with a pulse ox of 92%. I repeated the chest x-ray this morning and the patient continues to have stable multifocal patchy airspace disease more so in the right upper lobe. The most recent sputum sample from 11/26/2024 was positive for haemophilus influenza and the patient was treated accordingly and he is currently still on oral Augmentin. Remains on DuoNeb updrafts. Remains on Perforomist and Pulmicort nebulized treatments twice a day. Remains on IV Solu- Medrol 60 mg every 6 hours. Is also known to have metastatic small cell lung cancer. Extremely debilitated. Weak. Remains in atrial fibrillation. On 12/11/2024, the patient was quite restless and lethargic on the medical floor. I saw this patient earlier this morning and a blood gas was done that showed a pH of 7.28 with a pCO2 of 76 and pO2 of 60 and this was done while the patient was being on 15 L of oxygen by nasal cannula. A follow-up chest x-ray was also done and it shows diffuse bilateral airspace disease with probably some interval worsening. Based on that, the patient was transferred to the intensive care unit for further monitoring. Contemplating intubation mechanical ventilation. His CODE STATUS remains full. He is going to be monitored very closely. Unable to give a sputum sample and the most recent sputum sample was positive for haemophilus influenza. The patient remains on broad-spectrum antibiotics and the patient was switched again to IV Zosyn. Rest of the medications remain unchanged. Remains on bronchodilators. Remains on steroids. Very much debilitated at this point in time. On 12/12/2024, the patient is being seen for a follow-up. Significant improvement compared to yesterday. Noted I was contemplating on intubating this patient. However, the patient did very well and seems to be much more calm and comfortable and breathing is nonlabored on today's evaluation. Furthermore, the patient denies having any significant shortness of breath. A follow-up chest x- ray was obtained today and it shows interval improvement in aeration and improved airspace disease bilaterally. The patient was on 15 L of oxygen by nasal cannula and FiO2 is being gradually weaned off. The patient has diuresed nicely with IV Lasix and this will be continued. Echocardiogram was also o btained today and showed ejection fraction 55 to 60%. There is severe RV dilatation and moderate reduced RV global function with moderate degree of pulm hypertension with estimated right ventricular systolic pressure of around 50. There is also moderate mitral and tricuspid regurgitation and mild to moderate aortic regurgitation. Blood work from today shows a white cell count of 10.6, hemoglobin 10.8 and a platelet count of 311. BUN is 40 with a creatinine of 0.7. Sodium is 135 and a serum bicarb is at 35. The fluid balance over the past 24 hours has been -1.3 L. No focal neurological deficits. On 12/13/2024, the patient is still having on and off episodes of confusion. No agitation. Sitter at the bedside. Meanwhile, respiratory status is stable. The patient is afebrile. The patient's pulse ox is 93% centimeters of O2 nasal cannula. Chest x-ray findings are essentially stable compared to yesterday. Continues to diurese with IV Lasix. The patient is currently on IV Lasix and fluid balance -3.1 L over the past 24 hours. Patient is also on Diamox. Blood work from today shows a white cell count of 9 with a hemoglobin 10.4 and platelet count of 315. The blood gas from today showed a pH of 7.34 with a pCO2 17 pO2 of 66. Sodium is at 134, potassium is at 3.2, bicarb is at 39, BUN 39 and a creatinine of 1.03. No hypotension. No agitation. Remains on IV Zosyn. Remains on amiodarone 2 mg p.o. twice a day and the patient is also on metoprolol 100 mg p.o. daily. Remains on IV Solu-Medrol. Remains on DuoNeb nebulizers [id number]. Remains on IV Lasix. Remains on IV Diamox. Objective - Vital Signs Vital signs: Vital Signs Temp 97.5 F L 12/13/24 16:00 Pulse 87 12/13/24 16:00 Resp 14 12/13/24 16:00 BP 101/74 12/13/24 16:00 Pulse Ox 93 L 12/13/24 16:00 FiO2 50 12/12/24 06:00 Intake & Output 12/12/24 12/13/24 12/13/24 18:59 06:59 18:59 Intake Total 300 1025 225 Output Total 1949 2500 3150 Balance -6364 -5041 -2920 Weight 174.4 kg 77.6 kg Intake: IV 300 275 225 0.9 Normal Saline 300 275 225 Oral 750 Output: Urine 1949 2500 3150 Other: Voiding Method External Catheter External Catheter ABP, PAP, CO, CI - Last Documented Arterial Blood Pressure 131/85 - Exam No acute distress, awake alert and communicating. No major respiratory distress at rest. The patient is currently on 6 L of O2 nasal cannula, calm and comfortable HEENT examination is grossly unremarkable. Mucous membranes are moist. No oral lesions. Neck supple. Full range of motion. No adenopathy thyromegaly or neck vein distention. Cardiovascular examination reveals an irregular rhythm and rate. S1-S2 normal. No S3 or S4. No discernible murmur noted. Heart sounds are distant. Lungs reveal tattered rhonchi. Diminished breath sounds on the left. No wheezes or crackles. Abdomen soft bowel sounds are heard. No masses or tenderness. Extremities are intact. No cyanosis clubbing or edema. Skin reveals a left elbow with open superficial wound. Neurologic examination the patient is encephalopathic, confused, no significant agitation. He is having waxing and waning mentation. - Labs CBC & Chem 7: 12/13/24 02:43 12/13/24 14:11 Labs: Abnormal Lab Results - Last 24 Hours (Table) 12/12/24 12/12/24 12/13/24 Range/Units 21:25 21:34 02:43 RBC 3.59 L (4.30-5.90) m/uL Hgb 10.4 L (13.0-17.5) gm/dL Hct 35.5 L (39.0-53.0) % MCHC 29.4 L (31.0-37.0) g/dL RDW 16.9 H (11.5-15.5) % Neutrophils # (Manual) 8.55 H (1.3-7.7) k/uL Lymphocytes # (Manual) 0.36 L (1.0-4.8) k/uL Myelocytes # (Manual) 0.09 H (0) k/uL Nucleated RBCs 5 H (0-0) /100 WBC ABG pH (7.35-7.45) ABG pCO2 (35-45) mmHg ABG pO2 (83-108) mmHg ABG HCO3 (21-25) mmol/L ABG Total CO2 (19-24) mmol/L ABG O2 Saturation (94-97) % Hemoglobin (13.0-17.5) gm/dL Sodium (137-145) mmol/L Potassium (3.5-5.1) mmol/L Chloride (98-107) mmol/L Carbon Dioxide (22-30) mmol/L BUN (9-20) mg/dL Glucose (74-99) mg/dL POC Glucose (mg/dL) 502 H* 255 H (70-110) mg/dL 12/13/24 12/13/24 12/13/24 Range/Units 02:43 10:48 11:22 RBC (4.30-5.90) m/uL Hgb (13.0-17.5) gm/dL Hct (39.0-53.0) % MCHC (31.0-37.0) g/dL RDW (11.5-15.5) % Neutrophils # (Manual) (1.3-7.7) k/uL Lymphocytes # (Manual) (1.0-4.8) k/uL Myelocytes # (Manual) (0) k/uL Nucleated RBCs (0-0) /100 WBC ABG pH 7.34 L (7.35-7.45) ABG pCO2 70 H (35-45) mmHg ABG pO2 66 L (83-108) mmHg ABG HCO3 37 H (21-25) mmol/L ABG Total CO2 39 H (19-24) mmol/L ABG O2 Saturation 91.6 L (94-97) % Hemoglobin 10.7 L (13.0-17.5) gm/dL Sodium 134 L (137-145) mmol/L Potassium 3.2 L (3.5-5.1) mmol/L Chloride 94 L (98-107) mmol/L Carbon Dioxide 39 H (22-30) mmol/L BUN 39 H (9-20) mg/dL Glucose 193 H (74-99) mg/dL POC Glucose (mg/dL) 265 H (70-110) mg/dL 12/13/24 12/13/24 Range/Units 14:11 15:46 RBC (4.30-5.90) m/uL Hgb (13.0-17.5) gm/dL Hct (39.0-53.0) % MCHC (31.0-37.0) g/dL RDW (11.5-15.5) % Neutrophils # (Manual) (1.3-7.7) k/uL Lymphocytes # (Manual) (1.0-4.8) k/uL Myelocytes # (Manual) (0) k/uL Nucleated RBCs (0-0) /100 WBC ABG pH (7.35-7.45) ABG pCO2 (35-45) mmHg ABG pO2 (83-108) mmHg ABG HCO3 (21-25) mmol/L ABG Total CO2 (19-24) mmol/L ABG O2 Saturation (94-97) % Hemoglobin (13.0-17.5) gm/dL Sodium (137-145) mmol/L Potassium 3.2 L (3.5-5.1) mmol/L Chloride (98-107) mmol/L Carbon Dioxide (22-30) mmol/L BUN (9-20) mg/dL Glucose (74-99) mg/dL POC Glucose (mg/dL) 143 H (70-110) mg/dL Assessment and Plan Plan: Acute hypoxemic respiratory failure, with bilateral pneumonia requiring intubation mechanical ventilation. The patient was extubated on 11/29/2024. Sputum sample was positive for haemophilus influenza. Most recent chest x-ray was done on 12/03/2024 still showing upper lobe consolidation with. Poor ability to perform pulmonary toileting. Previous echocardiogram from December 2023 had sh own a preserved LV function with an ejection fraction of 55 to 60%. There is mild pulmonary hypertension and moderate degree of mitral regurgitation. CAT scan of the chest done on 11/18/2024 showed small bilateral pleural effusion with adjacent atelectasis. No evidence of any tumor progression. Overall respiratory status remains stable. Repeat chest x-ray from 12/10/2024 shows similar stable diffuse multifocal airspace disease more so in the right upper lobe. Subsequently, the patient oxygenation got worse and the patient developed an acute respiratory acidosis and based on that the patient was transferred to the intensive care unit. The patient was started on diuretics and the patient is producing excellent urine output. Subsequent blood gas showed improvement in acid-base status. Chest x-ray findings improved. Stable compared to yesterday. Will continue same treatment for now. olecranon bursitis, wound culture positive for methicillin-resistant Staphylococcus aureus. The patient was treated with vancomycin Atrial fibrillation with controlled ventricular response, rate is under better control although the patient continues to be tachycardic. The patient remains on a combination of amiodarone and metoprolol Metastatic small cell lung cancer, receiving immunotherapy and most recent CAT scan of the brain and a CAT scan of the chest showed no evidence of any active disease. Presented to [facility] on 04/22/22 with increased confusion and disorientation. CT brain without contrast noted 2 large hypodense lesions in bilateral parietal lobes measuring 4.9 x 3.2 cm on the left and 3.3 x 3.1 cm on the right. Initial CXR showed 2.6 cm mass in left mid lung field. He was started on IV dexamethasone. MRI brain on 04/23/22 noted a left 4.9 x 4.8 x 4 cm left cerberal hemisphere lesion and 4.1 x 4.1 cm right cerebral hemisphere lesion. A left cerebellum lesion measured 1.4 x 1.2 x 0.9 cm along with a potential left cerebellar peduncle lesion measuring 5 mm. Transferred to [facility] where he underwent bilateral parietal crainiotomy on 05/06/22, path + lung primary with mixed small cell and adenocarcinoma histology (TTF-1, synaptophysin, chromogranin positive; CK20 positive in small cell component). PET/CT on 05/24/22 reported posterior lateral SERAFIN lung lesion with SUV 4.79, superior left hilar lymphadenopathy with SUV 4.97, and punctate posterior right lung nodule with SUV 1.12. Uptake was also noted at the costovertebral junction and posterior chest, but unclear if this was malignant in nature. He had SRS at [facility] from 05/30/22-06/07/22 receiving 57 Gy in 8 fractions. Had significant improvement in his vision since SRS. He received 4 cycles of carboplatin and etoposide from 07/05/22-09/08/22. Staging CT scans on 09/19/2022 revealed no evidence of disease progression with partial response. Brain MRI July 2022 with no evidence of disease recurrence.Brain MRI on 07/06/2023 revealed no evidence of intracranial metastases. Repeat brain MRI on 08/28/2023 noted new anterior left temporal lobe lesion measuring 1.4 cm. He received 3 fractions of SRS with 27 Gordon from 09/04/2023 through 09/06/2023. Staging CT scans on 10/23/2023 revealed no evidence of metastatic disease. He was admitted to [facility] on 11/07/2023 with seizure and altered mental status was found to have new right temporal lobe lesion measuring 1.2 cm. Completed 3 fractions of SRS to the temporal lobe lesion in early December 2023. He restarted atezolizumab on 12/27/2023. Staging CT scans on 03/06/2024 and brain MRI on 03/18/2024 revealed no evidence of recurrent or metastatic disease. He was previously noted to have cysts of the liver with no lesions concerning for definitive metastatic disease.He did have hospitalizations in May and June 2024 where brain MRI on 05/17/2024 noted stable intracranial lesions that were treated. CT abdomen/pelvis on 06/13/2024 revealed no evidence of malignancy with stable hepatic cysts. CT chest performed on 08/05/2024 revealed no evidence of metastatic disease. He is s/p 25 cycles of maintenance tecentriq. CAT scan of the chest done on 11/18/2024 shows no evidence of any residual tumor or tumor progression. Delirium,, lethargic, weakness and episodes of confusion. The patient also demonstrate generalized weakness.. Improved on today's evaluation and the patient seems to be much moreappropriate and communicative. Hypertension. Elevated troponins, possibly secondary to supply/demand mismatch. Altered mental status, under investigation, brain CT did not show any acute intracranial bleeding or mass effect. The mental status continues to wax and wane. History of seizure disorder. The patient is currently on Keppra. History of polysubstance abuse. Plan: Keep the patient intensive care unit Continue Lasix 40 mg IV every 12 hours Diamox 500 mg IV every 12 hours Monitor fluid balance and electrolytes and serum bicarb Monitor mental status as the patient received a much less encephalopathic although patient's mental status continues to wax and wane Chest x-ray is stable compared to yesterday Repeat chest x-ray in the morning Repeat blood gas in the morning Wean down FiO2 as tolerated to maintain saturation above 90% CT of the brain done on 11/27/2024 showed no enhancing lesions to suggest metastatic disease. Unable to perform an MRI. Continue bronchodilators Continue IV Solu-Medrol Management of atrial fibrillation the patient is currently on amiodarone 200 mg p.o., p.o. twice daily and metoprolol 100 mg p.o. daily. No anticoagulants Oncology follow-up ID follow-up Monitor mental status Will continue to follow Prognosis remains extremely poor based on above-mentioned comorbidities. Evaluation was done 35 minutes. Time with Patient: Greater than 30
[2024-12-13 20:13] LABS: Glucose,Whole Blood 292 mg/dL (70-110)
--- NOTE | 2024-12-14 00:52 | PN ---
PROGRESS NOTE DATE OF SERVICE: 12/13/2024 CHIEF COMPLAINT: Acute respiratory failure, atrial fibrillation. HISTORY OF PRESENT ILLNESS: This gentleman is the same. There has been no significant change. He remains fairly lethargic. PHYSICAL EXAMINATION: LUNGS: Breath sounds are heard bilaterally. ABDOMEN: Soft. EXTREMITIES: Unchanged. IMPRESSION: 1. Respiratory failure. 2. Pneumonitis. 3. Cancer of the lung. PLAN: No change in his management at this time. MMODL / IJN: [id number] /
[2024-12-14] MEDS: POTASSIUM CHLORIDE 10 MEQ in WATER FOR INJECTION 1 100ML.BAG IVPB SCH (02:13)
[2024-12-14 04:44] LABS: Anisocytosis Slight; HCT 37.3 % (39.0-53.0); HGB 10.7 gm/dL (13.0-17.5); Hypochromasia Marked; MCH 28.8 pg (25.0-35.0); MCHC 28.8 g/dL (31.0-37.0); Macrocytosis Slight; Mean Platelet Volume 8.3; Platelet Count 304 k/uL (150-450); RBC 3.73 m/uL (4.30-5.90); RDW 16.8 % (11.5-15.5); WBC 11.7 k/uL (3.8-10.6)
[2024-12-14 06:49] LABS: African American GFR (CKD) >90 (>60 ml/min/1.73 sqM); Anion Gap 5 mmol/L; Blood Urea Nitrogen 36 mg/dL (9-20); Calcium 8.8 mg/dL (8.4-10.2); Carbon Dioxide 31 mmol/L (22-30); Chloride 101 mmol/L (98-107); Glucose 237 mg/dL (74-99); Non-African American GFR(CKD) >90 (>60 ml/min/1.73 sqM); Potassium 3.9 mmol/L (3.5-5.1); Sodium 137 mmol/L (137-145)
[2024-12-14 06:49] LABS: Glucose,Whole Blood 239 mg/dL (70-110)
--- NOTE | 2024-12-14 06:57 | XR ---
EXAMINATION TYPE: XR chest 1V DATE OF EXAM: 12/14/2024 4:56 AM COMPARISON: Multiple radiographs, with the most recent on 12/13/2024. TECHNIQUE: XR chest 1V Portable AP radiograph of the chest. CLINICAL INDICATION:Male, 59 years old with history of Follow-up pneumonia; FINDINGS: Lungs/Pleura: No pneumothorax or pleural effusion. Similar patchy airspace opacities within the right upper lung. Pulmonary vascularity: Unremarkable. Heart/mediastinum: Cardiomediastinal silhouette is enlarged and stable. Atherosclerotic calcificatio ns are seen in the aorta. Musculoskeletal: No acute osseous pathology. IMPRESSION: Similar patchy airspace opacities within the right upper lung concerning for pneumonia. [facility], , 12/14/2024 6:55 AM
[2024-12-14 07:44] LABS: ABG Base Excess 5.6 mmol/L; ABG HCO3 33 mmol/L (21-25); ABG Oxygen Saturation 94.7 % (94-97); ABG PCO2 67 mmHg (35-45); ABG PH 7.31 (7.35-7.45); ABG PO2 77 mmHg (83-108); ABG TCO2 36 mmol/L (19-24); Allen Test Performed? Yes
[2024-12-14 12:03] LABS: Glucose,Whole Blood 197 mg/dL (70-110)
--- NOTE | 2024-12-14 13:24 | P.PN ---
Subjective Progress Note Date: 12/14/24 On today's evaluation of 12/09/2024, the patient remains confused, lethargic, at times agitated, given Haldol and at the time of my evaluation, the patient was essentially lethargic somnolent and difficult to arouse. He was unable to communicate. He has a sitter at the bedside. Noted, the patient is quite debilitated. This patient has history of metastatic small cell lung cancer receives therapy back in 2021. Please note my detailed description and progression of his small cell lung cancer. The most recent CAT scan of the chest that was done on 11/18/2024 showed no disease progression. However, during this current hospital stay, the patient developed an extensive bilateral pneumonia right more than left. He required intubation mechanical ventilation and he was ultimately extubated on 11/29/2024. The most recent chest x-ray from him was on 12/03/2024 still showing extensive consolidation in the lungs bilaterally. At this point, the patient is on 8 L of oxygen by nasal cannula with a pulse ox of 97%. His oral intake is essentially limited based on my conversations with the nursing staff. He remains on Augmentin as the patient was found to have haemophilus influenza on his sputum on 11/26/2024 and this will be continued. Remains on IV Solu-Medrol 60 mg every 6 hours. Remains on DuoNeb nebulized treatments [id number]. Remains on a combination of Perforomist and Pulmicort nebulized treatments twice a day. Remains on IV Keppra. Remains encephalopathic and extensively debilitated. He is on amiodarone regarding chronic atrial fibrillation. He is also on metoprolol 100 mg p.o. daily. And atrial fibrillation. No anticoagulants for now. On 12/10/2024, the patient remains altered and confused. He is having ongoing cough and congestion and respiratory distress even at rest. His oxygenation is also gotten worse and the patient is currently on 15 L of oxygen by nasal cannula with a pulse ox of 92%. I repeated the chest x-ray this morning and the patient continues to have stable multifocal patchy airspace disease more so in the right upper lobe. The most recent sputum sample from 11/26/2024 was positive for haemophilus influenza and the patient was treated accordingly and he is currently still on oral Augmentin. Remains on DuoNeb updrafts. Remains on Perforomist and Pulmicort nebulized treatments twice a day. Remains on IV Solu- Medrol 60 mg every 6 hours. Is also known to have metastatic small cell lung cancer. Extremely debilitated. Weak. Remains in atrial fibrillation. On 12/11/2024, the patient was quite restless and lethargic on the medical floor. I saw this patient earlier this morning and a blood gas was done that showed a pH of 7.28 with a pCO2 of 76 and pO2 of 60 and this was done while the patient was being on 15 L of oxygen by nasal cannula. A follow-up chest x-ray was also done and it shows diffuse bilateral airspace disease with probably some interval worsening. Based on that, the patient was transferred to the intensive care unit for further monitoring. Contemplating intubation mechanical ventilation. His CODE STATUS remains full. He is going to be monitored very closely. Unable to give a sputum sample and the most recent sputum sample was positive for haemophilus influenza. The patient remains on broad-spectrum antibiotics and the patient was switched again to IV Zosyn. Rest of the medications remain unchanged. Remains on bronchodilators. Remains on steroids. Very much debilitated at this point in time. On 12/12/2024, the patient is being seen for a follow-up. Significant improvement compared to yesterday. Noted I was contemplating on intubating this patient. However, the patient did very well and seems to be much more calm and comfortable and breathing is nonlabored on today's evaluation. Furthermore, the patient denies having any significant shortness of breath. A follow-up chest x- ray was obtained today and it shows interval improvement in aeration and improved airspace disease bilaterally. The patient was on 15 L of oxygen by nasal cannula and FiO2 is being gradually weaned off. The patient has diuresed nicely with IV Lasix and this will be continued. Echocardiogram was also o btained today and showed ejection fraction 55 to 60%. There is severe RV dilatation and moderate reduced RV global function with moderate degree of pulm hypertension with estimated right ventricular systolic pressure of around 50. There is also moderate mitral and tricuspid regurgitation and mild to moderate aortic regurgitation. Blood work from today shows a white cell count of 10.6, hemoglobin 10.8 and a platelet count of 311. BUN is 40 with a creatinine of 0.7. Sodium is 135 and a serum bicarb is at 35. The fluid balance over the past 24 hours has been -1.3 L. No focal neurological deficits. On 12/13/2024, the patient is still having on and off episodes of confusion. No agitation. Sitter at the bedside. Meanwhile, respiratory status is stable. The patient is afebrile. The patient's pulse ox is 93% centimeters of O2 nasal cannula. Chest x-ray findings are essentially stable compared to yesterday. Continues to diurese with IV Lasix. The patient is currently on IV Lasix and fluid balance -3.1 L over the past 24 hours. Patient is also on Diamox. Blood work from today shows a white cell count of 9 with a hemoglobin 10.4 and platelet count of 315. The blood gas from today showed a pH of 7.34 with a pCO2 17 pO2 of 66. Sodium is at 134, potassium is at 3.2, bicarb is at 39, BUN 39 and a creatinine of 1.03. No hypotension. No agitation. Remains on IV Zosyn. Remains on amiodarone 2 mg p.o. twice a day and the patient is also on metoprolol 100 mg p.o. daily. Remains on IV Solu-Medrol. Remains on DuoNeb nebulizers [id number]. Remains on IV Lasix. Remains on IV Diamox. On 12/14/2024, the patient is being seen for a follow-up. Waxing and waning ment ation. Based on that, neurology evaluation will be also requested. Noted the patient's most recent CAT scan of the brain showed no acute abnormalities and there was evidence of previously treated QUALITY [employer] lesions and the patient is known to have previous QUALITY CONTR[employer] TE[employer] MATERIAL[employer] metastases. Meanwhile, respiratory status is stable. The patient has been weaned down and the patient's current FiO2 is at 2 L nasal cannula with pulse ox of 95%. A follow-up blood gas was done and showed a pH of 7.31 with a pCO2 of 67 and pO2 of 77. The patient remains on IV Lasix. The patient remains on Diamox. Fluid balance over the past 24 hours has been -3.4 L. Meanwhile, the serum bicarb is currently 31. Sodium levels at 137, potassium level of 3.9. The white cell count 11.7 with a hemoglobin of 10.7. Chest x-ray findings are essentially stable and the patient continues to have stable patchy airspace disease specially in the right upper lobe. No active respiratory difficulties. Some limited cough and congestion. Unable to bring up sputum. Remains on IV Zosyn. Objective - Vital Signs Vital signs: Vital Signs Temp 97 F L 12/14/24 08:00 Pulse 92 12/14/24 08:15 Resp 13 12/14/24 08:00 BP 109/82 12/14/24 08:00 Pulse Ox 100 12/14/24 08:00 FiO2 50 12/14/24 08:00 Intake & Output 12/13/24 12/14/24 12/14/24 18:59 06:59 18:59 Intake Total 500 1260 100 Output Total 3550 1690 Balance -3050 -430 100 Weight 76.4 kg Intake: IV 300 300 100 0.9 Normal Saline 300 300 Potassium Chloride 10 meq 100 In Water For Injection 1 100ml.bag @ 100 mls/hr IVPB Q1HR CLARA Rx#: [id number] Oral 200 960 Output: Urine 3550 1690 Other: Voiding Method External Catheter External Catheter ABP, PAP, CO, CI - Last Documented Arterial Blood Pressure 131/85 - Exam No acute distress, awake alert and communicating. No major respiratory distress at rest. The patient is currently on 2 L of O2 nasal cannula, calm and comfortable HEENT examination is grossly unremarkable. Mucous membranes are moist. No oral lesions. Neck supple. Full range of motion. No adenopathy thyromegaly or neck vein distention. Cardiovascular examination reveals an irregular rhythm and rate. S1-S2 normal. No S3 or S4. No discernible murmur noted. Heart sounds are distant. Lungs reveal tattered rhonchi. Diminished breath sounds on the left. No wheezes or crackles. Abdomen soft bowel sounds are heard. No masses or tenderness. Extremities are intact. No cyanosis clubbing or edema. Skin reveals a left elbow with open superficial wound. Neurologic examination the patient is encephalopathic, confused, no significant agitation. He is having waxing and waning mentation. - Labs CBC & Chem 7: 12/14/24 04:20 12/14/24 06:15 Labs: Abnormal Lab Results - Last 24 Hours (Table) 12/13/24 12/13/24 12/13/24 Range/Units 10:48 11:22 14:11 WBC (3.8-10.6) k/uL RBC (4.30-5.90) m/uL Hgb (13.0-17.5) gm/dL Hct (39.0-53.0) % MCHC (31.0-37.0) g/dL RDW (11.5-15.5) % ABG pH 7.34 L (7.35-7.45) ABG pCO2 70 H (35-45) mmHg ABG pO2 66 L (83-108) mmHg ABG HCO3 37 H (21-25) mmol/L ABG Total CO2 39 H (19-24) mmol/L ABG O2 Saturation 91.6 L (94-97) % Hemoglobin 10.7 L (13.0-17.5) gm/dL Potassium 3.2 L (3.5-5.1) mmol/L Carbon Dioxide (22-30) mmol/L BUN (9-20) mg/dL Glucose (74-99) mg/dL POC Glucose (mg/dL) 265 H (70-110) mg/dL 12/13/24 12/13/24 12/13/24 Range/Units 15:46 18:59 20:11 WBC (3.8-10.6) k/uL RBC (4.30-5.90) m/uL Hgb (13.0-17.5) gm/dL Hct (39.0-53.0) % MCHC (31.0-37.0) g/dL RDW (11.5-15.5) % ABG pH (7.35-7.45) ABG pCO2 (35-45) mmHg ABG pO2 (83-108) mmHg ABG HCO3 (21-25) mmol/L ABG Total CO2 (19-24) mmol/L ABG O2 Saturation (94-97) % Hemoglobin (13.0-17.5) gm/dL Potassium 3.4 L (3.5-5.1) mmol/L Carbon Dioxide (22-30) mmol/L BUN (9-20) mg/dL Glucose (74-99) mg/dL POC Glucose (mg/dL) 143 H 292 H (70-110) mg/dL 12/14/24 12/14/24 12/14/24 Range/Units 01:03 04:20 06:15 WBC 11.7 H (3.8-10.6) k/uL RBC 3.73 L (4.30-5.90) m/uL Hgb 10.7 L (13.0-17.5) gm/dL Hct 37.3 L (39.0-53.0) % MCHC 28.8 L (31.0-37.0) g/dL RDW 16.8 H (11.5-15.5) % ABG pH (7.35-7.45) ABG pCO2 (35-45) mmHg ABG pO2 (83-108) mmHg ABG HCO3 (21-25) mmol/L ABG Total CO2 (19-24) mmol/L ABG O2 Saturation (94-97) % Hemoglobin (13.0-17.5) gm/dL Potassium 3.3 L (3.5-5.1) mmol/L Carbon Dioxide 31 H (22-30) mmol/L BUN 36 H (9-20) mg/dL Glucose 237 H (74-99) mg/dL POC Glucose (mg/dL) (70-110) mg/dL 12/14/24 12/14/24 Range/Units 06:48 07:44 WBC (3.8-10.6) k/uL RBC (4.30-5.90) m/uL Hgb (13.0-17.5) gm/dL Hct (39.0-53.0) % MCHC (31.0-37.0) g/dL RDW (11.5-15.5) % ABG pH 7.31 L (7.35-7.45) ABG pCO2 67 H (35-45) mmHg ABG pO2 77 L (83-108) mmHg ABG HCO3 33 H (21-25) mmol/L ABG Total CO2 36 H (19-24) mmol/L ABG O2 Saturation (94-97) % Hemoglobin 10.5 L (13.0-17.5) gm/dL Potassium (3.5-5.1) mmol/L Carbon Dioxide (22-30) mmol/L BUN (9-20) mg/dL Glucose (74-99) mg/dL POC Glucose (mg/dL) 239 H (70-110) mg/dL Assessment and Plan Plan: Acute hypoxemic respiratory failure, with bilateral pneumonia requiring intubation mechanical ventilation. The patient was extubated on 11/29/2024. Sputum sample was positive for haemophilus influenza. Most recent chest x-ray was done on 12/03/2024 still showing upper lobe consolidation with. Poor ability to perform pulmonary toileting. Previous echocardiogram from December 2023 had shown a preserved LV function with an ejection fraction of 55 to 60%. There is mild pulmonary hypertension and moderate degree of mitral regurgitation. CAT scan of the chest done on 11/18/2024 showed small bilateral pleural effusion with adjacent atelectasis. No evidence of any tumor progression. Overall respirato ry status remains stable. Repeat chest x-ray from 12/10/2024 shows similar stable diffuse multifocal airspace disease more so in the right upper lobe. Subsequently, the patient oxygenation got worse and the patient developed an acute respiratory acidosis and based on that the patient was transferred to the intensive care unit. The patient was started on diuretics and the patient is producing excellent urine output. The patient currently on IV Lasix. The patient is on Diamox. Serum bicarb level has dropped and the patient's blood gas shows improvement in acid-base status. There is still a component of respiratory acidosis which is essentially mild. The patient has been unable to to utilize the BiPAP. olecranon bursitis, wound culture positive for methicillin-resistant Staphylococcus aureus. The patient was treated with vancomycin Atrial fibrillation with controlled ventricular response, rate is under better control although the patient continues to be tachycardic. The patient remains on a combination of amiodarone and metoprolol Metastatic small cell lung cancer, receiving immunotherapy and most recent CAT scan of the brain and a CAT scan of the chest showed no evidence of any active disease. Presented to [facility] on 04/22/22 with increased confusion and disorientation. CT brain without contrast noted 2 large hypodense lesions in bilateral parietal lobes measuring 4.9 x 3.2 cm on the left and 3.3 x 3.1 cm on the right. Initial CXR showed 2.6 cm mass in left mid lung field. He was started on IV dexamethasone. MRI brain on 04/23/22 noted a left 4.9 x 4.8 x 4 cm left cerberal hemisphere lesion and 4.1 x 4.1 cm right cerebral hemisphere lesion. A left cerebellum lesion measured 1.4 x 1.2 x 0.9 cm along with a potential left cerebellar peduncle lesion measuring 5 mm. 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 PET/CT on 05/24/22 reported posterior lateral SERAFIN lung lesion with SUV 4.79, superior left hilar lymphadenopathy with SUV 4.97, and punctate posterior right lung nodule with SUV 1.12. Uptake was also noted at the costovertebral junction and posterior chest, but unclear if this was malignant in nature. He had SRS at [facility] from 05/30/22-06/07/22 receiving 57 Gy in 8 fractions. Had significant improvement in his vision since SRS. He received 4 cycles of carboplatin and etoposide from 07/05/22-09/08/22. Staging CT scans on 09/19/2022 revealed no evidence of disease progression with partial response. Brain MRI July 2022 with no evidence of disease recurrence.Brain MRI on 07/06/2023 revealed no evidence of intracranial metastases. Repeat brain MRI on 08/28/2023 noted new anterior left temporal lobe lesion measuring 1.4 cm. He received 3 fractions of SRS with 27 Gordon from 09/04/2023 through 09/06/2023. Staging CT scans on 10/23/2023 revealed no evidence of metastatic disease. He was admitted to [facility] on 11/07/2023 with seizure and altered mental status was found to have new right temporal lobe lesion measuring 1.2 cm. Completed 3 fractions of SRS to the temporal lobe lesion in early December 2023. He restarted atezolizumab on 12/27/2023. Staging CT scans on 03/06/2024 and brain MRI on 03/18/2024 revealed no evidence of recurrent or metastatic disease. He was previously noted to have cysts of the liver with no lesions concerning for definitive metastatic disease.He did have hospitalizations in May and June 2024 where brain MRI on 05/17/2024 noted stable intracranial lesions that were treated. CT abdomen/pelvis on 06/13/2024 revealed no evidence of malignancy with stable hepatic cysts. CT chest performed on 08/05/2024 revealed no evidence of metastatic disease. He is s/p 25 cycles of maintenance tecentriq. CAT scan of the chest done on 11/18/2024 shows no evidence of any residual tumor or tumor progression. Ongoing fluctuation in mental status/delirium,, lethargic, weakness and episodes of confusion. The patient also demonstrate generalized weakness. Consider occult QUALITY CONTR[employer] metastases Hypertension. Elevated troponins, possibly secondary to supply/demand mismatch. Altered mental status, under investigation, brain CT did not show any acute intracranial bleeding or mass effect. The mental status continues to wax and wane. History of seizure disorder. The patient is currently on Keppra. History of polysubstance abuse. Plan: Keep the patient intensive care unit Continue Lasix 40 mg IV every 12 hours Diamox 500 mg IV every 12 hours Monitor fluid balance and electrolytes and serum bicarb Monitor mental status as the patient received a much less encephalopathic although patient's mental status continues to wax and wane. Based on that, I am going to asked the patient to be seen again by neurology. Repeating an MRI of the brain may be useful. Chest x-ray is stable compared to yesterday Repeat chest x-ray in the morning Repeat blood gas in the morning Wean down FiO2 as tolerated to maintain saturation above 90% CT of the brain done on 11/27/2024 showed no enhancing lesions to suggest metastatic disease. Unable to perform an MRI. Continue bronchodilators Continue IV Solu-Medrol Management of atrial fibrillation the patient is currently on amiodarone 200 mg p.o., p.o. twice daily and metoprolol 100 mg p.o. daily. No anticoagulants Oncology follow-up ID follow-up Monitor mental status Will continue to follow Prognosis remains extremely poor based on above-mentioned comorbidities. Evaluation was done 35 minutes. Time with Patient: Greater than 30
--- NOTE | 2024-12-14 13:50 | P.CNNES ---
History of Present Illness Consult date: 12/14/24 Reason for Consult: Lethargy and confusion History of Present Illness: The patient is a 59-year-old male who was seen in neurologic consultation on December 14, 2024, in collaboration with Mary Mejias, via teleneurology. History is obtained from review of the chart and from the nurse who is present at the bedside at the time of the evaluation. The patient reportedly continues to be lethargic and confused. He presented to the emergency department with symptoms of confusion, on November 12, 2024. At the time of presentation, patient reportedly had wounds on his legs as well as a erythematous, warm wound on his elbow. It was thought to be infected and that was the etiology of his confusion. Patient does have a history of lung cancer with metastases to the brain. He reportedly has a history of seizure disorder, secondary to these mets. The patient ended up requiring intubation because of respiratory failure. His pCO2 was markedly elevated. pO2 was low. Most recently, pCO2 is 67 and pO2 was 77. These numbers have improved from prior levels. There is concern that the patient continues to be confused, despite improvement in his laboratory status. Patient did have an MRI of his brain performed in April 2024. This revealed multiple metastatic lesions with surrounding edema. In the emergency department at the time of this admission, CT scan of the brain was performed. There is no reported edema. Past Medical History Past Medical History: Atrial Fibrillation, Cancer, Hypertension, Seizure Disorder Additional Past Medical History / Comment(s): bowel obstruction, cervical spinal stenosis, lung cancer with brain metastases, seizure 11/26/22. History of Any Multi-Drug Resistant Organisms: MRSA Date of last positivie culture/infection: 11/05/24 MDRO Source:: left elbow Past Surgical History: Back Surgery Additional Past Surgical History / Comment(s): Colostomy and reverse colostomy, L4-L5 fusion, brain surgery Past Anesthesia/Blood Transfusion Reactions: No Reported Reaction Past Psychological History: No Psychological Hx Reported Smoking Status: Current every day smoker Past Alcohol Use History: None Reported Past Drug Use History: Marijuana - Past Family History Mother Family Medical History: Cancer, Hypertension Additional Family Medical History / Comment(s): lung CA Father Family Medical History: Diabetes Mellitus Medications and Allergies Home Medications Medication Instructions Recorded Confirmed Type Albuterol Inhaler [Ventolin Hfa 2 puff INHALATION RT-QID PRN 11/07/23 11/12/24 History Inhaler] buprenorphine HCL [Subutex] 8 mg PO BID 11/07/23 11/12/24 History Aspirin 81 mg PO DAILY 04/08/24 11/12/24 History Furosemide [Lasix] 40 mg PO DAILY 06/11/24 11/12/24 History Amiodarone HCl [Pacerone] 100 mg PO DAILY 11/12/24 11/12/24 History Hydrocortisone [Cortef] 20 mg PO BID 11/12/24 11/12/24 History Sulfamethox-Tmp 400-80Mg [Bactrim 1 tab PO BID 11/12/24 11/12/24 History SS 400-80 mg] levETIRAcetam [Keppra] 1,000 mg PO Q12HR 11/12/24 11/12/24 History Allergies Allergy/AdvReac Type Severity Reaction Status Date / Time cephalexin [From Keflex] AdvReac Confusion, Verified 11/12/24 13:31 dizziness and syncope Physical Examination - Vital Signs Vital Signs: Vital Signs Temp Pulse Pulse Resp BP Pulse Ox FiO2 12/14/24 10:00 100 14 116/89 93 L 12/14/24 09:00 87 12 120/84 100 12/14/24 08:15 92 12/14/24 08:06 88 12/14/24 08:00 97 F L 13 109/82 100 50 12/14/24 07:53 90 20 50 12/14/24 07:00 90 12 116/91 100 12/14/24 06:00 16 118/93 94 L 12/14/24 05:00 97 9 L 97/79 87 L 12/14/24 04:00 98.3 F 86 13 95/70 100 12/14/24 03:45 109 H 12/14/24 03:00 90 14 92/72 100 12/14/24 02:00 91 13 92/72 98 12/14/24 01:00 99 28 H 113/82 99 12/14/24 00:01 111 H 27 H 100 12/14/24 00:00 98.6 F 86 109 H 18 100 12/13/24 23:00 92 12 98 12/13/24 22:06 100 12/13/24 22:05 90 12/13/24 22:00 107 H 20 100 12/13/24 21:55 89 12/13/24 21:00 98 12 94 L 12/13/24 20:00 98.1 F 106 H 14 99/71 96 12/13/24 19:50 109 H 12/13/24 19:00 93 11 L 99/71 96 12/13/24 18:00 94 20 103/73 95 12/13/24 17:00 111 H 14 102/82 93 L 12/13/24 16:00 97.5 F L 87 14 101/74 93 L 12/13/24 15:34 97 12/13/24 15:26 96 12/13/24 15:00 86 12 112/78 95 12/13/24 14:00 100 12 100/74 96 12/13/24 13:00 75 14 98/70 98 12/13/24 12:00 97.6 F 89 12 110/76 100 12/13/24 11:56 97 12/13/24 11:47 90 Intake and Output 12/13/24 12/14/24 12/14/24 22:59 06:59 14:59 Intake Total 1145 440 100 Output Total 1390 700 450 Balance -245 -260 -350 Intake: IV 225 200 100 0.9 Normal Saline 225 200 Potassium Chloride 10 meq 100 In Water For Injection 1 100ml.bag @ 100 mls/hr IVPB Q1HR [facility] Rx#: [id number] Oral 920 240 Output: Urine 1390 700 450 Other: Voiding Method External Catheter External Catheter Weight 76.4 kg General: The patient is reclining in the bed. He is in no acute distress. He is well-nourished. HEENT: Head is atraumatic, normocephalic. Fundus not visualized. There is no scleral icterus. Mucous membranes are dry. Neck: Supple without carotid bruits Heart: Regular rate and rhythm Extremities: Without edema. They are noted to be wounds on the bilateral lower extremities. Neurological examination Mental status: The patient is able to state his full name. He is not oriented to his age. He is able to state his location. He is oriented to his date of . With each subsequent questioning, the patient reports answers, "1964". The patient reports that he has been in the hospital for 4 years. He is unable to report the current year, month or president. He has some difficulty following commands. Cranial nerves: Pupils are equal at 3 mm and reactive. Visual ayon are full to confrontation. Extraocular movements are intact. There is no nystagmus. There is no obvious facial asymmetry. Hearing is diminished. Shoulder shrug is symmetric. Tongue protrudes midline. Motor: Strength (right/left): Utility Tender Carding 5/5. Biceps 5/5. Triceps 5/4. Flexors 4/5. Ankle plantar and dorsiflexors 5/5. Sensation: Grossly intact to light touch Coordination: The patient has difficulty with coordination testing and following instructions Deep tendon reflexes: 2+/4+ throughout. Plantar responses are flexor bilaterally. Gait: Not assessed Results - Laboratory Findings CBC and BMP: 12/14/24 04:20 12/14/24 06:15 Abnormal Lab Findings: Abnormal Labs 11/12/24 11/12/24 11/12/24 12:28 12:28 14:40 WBC RBC Hgb Hct MCHC RDW 17.1 H Neutrophils # Neutrophils # (Manual) Lymphocytes # Lymphocytes # (Manual) Monocytes # Metamyelocytes # (Man) Myelocytes # (Manual) Nucleated RBCs D-Dimer ABG pH ABG pCO2 ABG pO2 ABG HCO3 ABG Total CO2 ABG O2 Saturation Hemoglobin Sodium Potassium 1.8 L* Chloride Carbon Dioxide BUN 59 H Creatinine Glucose POC Glucose (mg/dL) Hemoglobin A1c Calcium Magnesium ALT Troponin I Total Protein 6.2 L Albumin Procalcitonin Urine Protein 1+ H Urine Blood Small H Influenza Type A (PCR) 11/12/24 11/12/24 11/13/24 14:52 22:04 03:52 WBC RBC Hgb Hct MCHC RDW Neutrophils # Neutrophils # (Manual) Lymphocytes # Lymphocytes # (Manual) Monocytes # Metamyelocytes # (Man) Myelocytes # (Manual) Nucleated RBCs D-Dimer ABG pH ABG pCO2 ABG pO2 ABG HCO3 ABG Total CO2 ABG O2 Saturation Hemoglobin Sodium Potassium 2.4 L* 2.4 L* Chloride Carbon Dioxide BUN Creatinine Glucose POC Glucose (mg/dL) Hemoglobin A1c Calcium Magnesium ALT Troponin I 0.060 H* Total Protein Albumin Procalcitonin Urine Protein Urine Blood Influenza Type A (PCR) 11/13/24 11/13/24 11/14/24 09:27 09:27 05:49 WBC RBC Hgb Hct MCHC RDW Neutrophils # Neutrophils # (Manual) Lymphocytes # Lymphocytes # (Manual) Monocytes # Metamyelocytes # (Man) Myelocytes # (Manual) Nucleated RBCs D-Dimer ABG pH ABG pCO2 ABG pO2 ABG HCO3 ABG Total CO2 ABG O2 Saturation Hemoglobin Sodium Potassium 2.4 L* 2.9 L Chloride 114 H Carbon Dioxide BUN 36 H Creatinine Glucose 135 H POC Glucose (mg/dL) Hemoglobin A1c Calcium Magnesium 2.9 H ALT Troponin I Total Protein Albumin Procalcitonin Urine Protein Urine Blood Influenza Type A (PCR) 11/14/24 11/14/24 11/15/24 05:49 05:49 11:41 WBC 13.0 H RBC 4.08 L Hgb 12.2 L Hct 38.8 L MCHC RDW 16.8 H Neutrophils # 11.0 H Neutrophils # (Manual) Lymphocytes # Lymphocytes # (Manual) Monocytes # Metamyelocytes # (Man) Myelocytes # (Manual) Nucleated RBCs D-Dimer 0.79 H ABG pH ABG pCO2 ABG pO2 ABG HCO3 ABG Total CO2 ABG O2 Saturation Hemoglobin Sodium Potassium Chloride Carbon Dioxide BUN Creatinine Glucose POC Glucose (mg/dL) Hemoglobin A1c Calcium Magnesium ALT Troponin I 0.036 H* Total Protein Albumin Procalcitonin Urine Protein Urine Blood Influenza Type A (PCR) 11/15/24 11/16/24 11/16/24 11:41 10:44 10:44 WBC 12.6 H RBC Hgb Hct MCHC RDW 16.8 H Neutrophils # Neutrophils # (Manual) Lymphocytes # Lymphocytes # (Manual) Monocytes # Metamyelocytes # (Man) Myelocytes # (Manual) Nucleated RBCs D-Dimer ABG pH ABG pCO2 ABG pO2 ABG HCO3 ABG Total CO2 ABG O2 Saturation Hemoglobin Sodium 146 H Potassium 2.4 L* 2.6 L* Chloride 113 H 111 H Carbon Dioxide BUN 31 H 23 H Creatinine 0.61 L 0.58 L Glucose 115 H 215 H POC Glucose (mg/dL) Hemoglobin A1c Calcium Magnesium ALT Troponin I Total Protein 5.3 L Albumin 3.1 L Procalcitonin Urine Protein Urine Blood Influenza Type A (PCR) 11/17/24 11/17/24 11/18/24 08:05 08:05 05:49 WBC 16.3 H 19.3 H RBC 4.29 L Hgb Hct MCHC RDW 17.2 H 17.2 H Neutrophils # Neutrophils # (Manual) Lymphocytes # Lymphocytes # (Manual) Monocytes # Metamyelocytes # (Man) Myelocytes # (Manual) Nucleated RBCs D-Dimer ABG pH ABG pCO2 ABG pO2 ABG HCO3 ABG Total CO2 ABG O2 Saturation Hemoglobin Sodium 147 H Potassium 2.8 L Chloride 113 H Carbon Dioxide BUN Creatinine 0.60 L Glucose 204 H POC Glucose (mg/dL) Hemoglobin A1c Calcium Magnesium ALT Troponin I Total Protein Albumin Procalcitonin Urine Protein Urine Blood Influenza Type A (PCR) 11/18/24 11/19/24 11/19/24 05:49 11:43 16:31 WBC RBC Hgb Hct MCHC RDW Neutrophils # Neutrophils # (Manual) Lymphocytes # Lymphocytes # (Manual) Monocytes # Metamyelocytes # (Man) Myelocytes # (Manual) Nucleated RBCs D-Dimer ABG pH ABG pCO2 ABG pO2 ABG HCO3 ABG Total CO2 ABG O2 Saturation Hemoglobin Sodium Potassium Chloride 110 H Carbon Dioxide BUN 23 H Creatinine Glucose 164 H POC Glucose (mg/dL) 162 H 229 H Hemoglobin A1c Calcium Magnesium ALT Troponin I Total Protein Albumin Procalcitonin Urine Protein Urine Blood Influenza Type A (PCR) 11/19/24 11/20/24 11/20/24 20:51 07:12 11:33 WBC RBC Hgb Hct MCHC RDW Neutrophils # Neutrophils # (Manual) Lymphocytes # Lymphocytes # (Manual) Monocytes # Metamyelocytes # (Man) Myelocytes # (Manual) Nucleated RBCs D-Dimer ABG pH ABG pCO2 ABG pO2 ABG HCO3 ABG Total CO2 ABG O2 Saturation Hemoglobin Sodium Potassium Chloride Carbon Dioxide BUN Creatinine Glucose POC Glucose (mg/dL) 204 H 188 H Hemoglobin A1c 7.2 H Calcium Magnesium ALT Troponin I Total Protein Albumin Procalcitonin Urine Protein Urine Blood Influenza Type A (PCR) 11/20/24 11/20/24 11/20/24 12:31 12:31 16:34 WBC 18.2 H RBC Hgb Hct MCHC 30.3 L RDW 17.0 H Neutrophils # 16.6 H Neutrophils # (Manual) Lymphocytes # 0.6 L Lymphocytes # (Manual) Monocytes # Metamyelocytes # (Man) Myelocytes # (Manual) Nucleated RBCs D-Dimer ABG pH ABG pCO2 ABG pO2 ABG HCO3 ABG Total CO2 ABG O2 Saturation Hemoglobin Sodium 136 L Potassium Chloride 110 H Carbon Dioxide 17 L BUN 30 H Creatinine 0.63 L Glucose 257 H POC Glucose (mg/dL) 205 H Hemoglobin A1c Calcium Magnesium ALT Troponin I Total Protein 5.2 L Albumin 3.0 L Procalcitonin Urine Protein Urine Blood Influenza Type A (PCR) 11/20/24 11/21/24 11/21/24 20:07 03:04 03:09 WBC 18.2 H RBC 4.23 L Hgb 12.7 L Hct MCHC RDW 17.0 H Neutrophils # 15.2 H Neutrophils # (Manual) Lymphocytes # Lymphocytes # (Manual) Monocytes # 1.2 H Metamyelocytes # (Man) Myelocytes # (Manual) Nucleated RBCs D-Dimer ABG pH ABG pCO2 ABG pO2 ABG HCO3 ABG Total CO2 ABG O2 Saturation Hemoglobin Sodium Potassium Chloride 109 H Carbon Dioxide BUN 34 H Creatinine 0.64 L Glucose 73 L POC Glucose (mg/dL) 208 H Hemoglobin A1c Calcium Magnesium ALT Troponin I Total Protein Albumin Procalcitonin Urine Protein Urine Blood Influenza Type A (PCR) 11/21/24 11/21/24 11/21/24 15:11 16:07 19:40 WBC RBC Hgb Hct MCHC RDW Neutrophils # Neutrophils # (Manual) Lymphocytes # Lymphocytes # (Manual) Monocytes # Metamyelocytes # (Man) Myelocytes # (Manual) Nucleated RBCs D-Dimer ABG pH ABG pCO2 ABG pO2 ABG HCO3 ABG Total CO2 ABG O2 Saturation Hemoglobin Sodium Potassium Chloride 109 H Carbon Dioxide BUN 27 H Creatinine 0.60 L Glucose 132 H POC Glucose (mg/dL) 157 H 121 H Hemoglobin A1c Calcium 8.2 L Magnesium ALT Troponin I Total Protein Albumin Procalcitonin Urine Protein Urine Blood Influenza Type A (PCR) 11/22/24 11/22/24 11/22/24 05:13 05:13 16:32 WBC 17.7 H RBC 4.06 L Hgb 12.5 L Hct MCHC RDW 16.6 H Neutrophils # Neutrophils # (Manual) Lymphocytes # Lymphocytes # (Manual) Monocytes # Metamyelocytes # (Man) Myelocytes # (Manual) Nucleated RBCs D-Dimer ABG pH ABG pCO2 ABG pO2 ABG HCO3 ABG Total CO2 ABG O2 Saturation Hemoglobin Sodium Potassium 3.3 L Chloride Carbon Dioxide BUN Creatinine 0.58 L Glucose 64 L POC Glucose (mg/dL) 320 H Hemoglobin A1c Calcium 8.3 L Magnesium ALT Troponin I Total Protein Albumin Procalcitonin Urine Protein Urine Blood Influenza Type A (PCR) 11/23/24 11/23/24 11/23/24 06:37 11:31 16:28 WBC RBC Hgb Hct MCHC RDW Neutrophils # Neutrophils # (Manual) Lymphocytes # Lymphocytes # (Manual) Monocytes # Metamyelocytes # (Man) Myelocytes # (Manual) Nucleated RBCs D-Dimer ABG pH ABG pCO2 ABG pO2 ABG HCO3 ABG Total CO2 ABG O2 Saturation Hemoglobin Sodium Potassium Chloride Carbon Dioxide 31 H BUN 21 H Creatinine 0.62 L Glucose POC Glucose (mg/dL) 200 H 177 H Hemoglobin A1c Calcium Magnesium ALT Troponin I Total Protein Albumin Procalcitonin Urine Protein Urine Blood Influenza Type A (PCR) 11/23/24 11/24/24 11/24/24 19:59 05:26 11:39 WBC RBC Hgb Hct MCHC RDW Neutrophils # Neutrophils # (Manual) Lymphocytes # Lymphocytes # (Manual) Monocytes # Metamyelocytes # (Man) Myelocytes # (Manual) Nucleated RBCs D-Dimer ABG pH ABG pCO2 ABG pO2 ABG HCO3 ABG Total CO2 ABG O2 Saturation Hemoglobin Sodium Potassium Chloride Carbon Dioxide BUN Creatinine 0.64 L Glucose POC Glucose (mg/dL) 180 H 235 H Hemoglobin A1c Calcium Magnesium ALT Troponin I Total Protein Albumin Procalcitonin Urine Protein Urine Blood Influenza Type A (PCR) 11/24/24 11/24/24 11/24/24 16:12 16:14 20:03 WBC RBC Hgb Hct MCHC RDW Neutrophils # Neutrophils # (Manual) Lymphocytes # Lymphocytes # (Manual) Monocytes # Metamyelocytes # (Man) Myelocytes # (Manual) Nucleated RBCs D-Dimer ABG pH ABG pCO2 ABG pO2 ABG HCO3 ABG Total CO2 ABG O2 Saturation Hemoglobin Sodium Potassium Chloride Carbon Dioxide BUN Creatinine Glucose POC Glucose (mg/dL) 475 H 163 H 168 H Hemoglobin A1c Calcium Magnesium ALT Troponin I Total Protein Albumin Procalcitonin Urine Protein Urine Blood Influenza Type A (PCR) 11/25/24 11/25/24 11/25/24 06:20 11:19 16:22 WBC RBC Hgb Hct MCHC RDW Neutrophils # Neutrophils # (Manual) Lymphocytes # Lymphocytes # (Manual) Monocytes # Metamyelocytes # (Man) Myelocytes # (Manual) Nucleated RBCs D-Dimer ABG pH ABG pCO2 ABG pO2 ABG HCO3 ABG Total CO2 ABG O2 Saturation Hemoglobin Sodium Potassium Chloride Carbon Dioxide BUN Creatinine Glucose POC Glucose (mg/dL) 115 H 207 H 282 H Hemoglobin A1c Calcium Magnesium ALT Troponin I Total Protein Albumin Procalcitonin Urine Protein Urine Blood Influenza Type A (PCR) 11/25/24 11/26/24 11/26/24 20:17 04:34 04:42 WBC RBC Hgb Hct MCHC RDW Neutrophils # Neutrophils # (Manual) Lymphocytes # Lymphocytes # (Manual) Monocytes # Metamyelocytes # (Man) Myelocytes # (Manual) Nucleated RBCs D-Dimer ABG pH 7.21 L ABG pCO2 88 H* ABG pO2 58 L* ABG HCO3 35 H ABG Total CO2 38 H ABG O2 Saturation 81.9 L Hemoglobin 12.4 L Sodium Potassium Chloride Carbon Dioxide BUN Creatinine Glucose POC Glucose (mg/dL) 172 H 153 H Hemoglobin A1c Calcium Magnesium ALT Troponin I Total Protein Albumin Procalcitonin Urine Protein Urine Blood Influenza Type A (PCR) 11/26/24 11/26/24 11/26/24 05:16 06:00 06:00 WBC 15.9 H RBC Hgb Hct MCHC 29.9 L RDW 16.1 H Neutrophils # 14.5 H Neutrophils # (Manual) Lymphocytes # 0.5 L Lymphocytes # (Manual) Monocytes # Metamyelocytes # (Man) Myelocytes # (Manual) Nucleated RBCs D-Dimer ABG pH ABG pCO2 ABG pO2 ABG HCO3 ABG Total CO2 ABG O2 Saturation Hemoglobin Sodium Potassium Chloride Carbon Dioxide 33 H BUN 27 H Creatinine Glucose 139 H POC Glucose (mg/dL) 153 H Hemoglobin A1c Calcium Magnesium ALT Troponin I Total Protein Albumin Procalcitonin Urine Protein Urine Blood Influenza Type A (PCR) 11/26/24 11/26/24 11/26/24 06:00 07:26 10:55 WBC RBC Hgb Hct MCHC RDW Neutrophils # Neutrophils # (Manual) Lymphocytes # Lymphocytes # (Manual) Monocytes # Metamyelocytes # (Man) Myelocytes # (Manual) Nucleated RBCs D-Dimer ABG pH 7.34 L ABG pCO2 58 H ABG pO2 185 H ABG HCO3 31 H ABG Total CO2 33 H ABG O2 Saturation 99.3 H Hemoglobin 11.2 L Sodium Potassium Chloride Carbon Dioxide BUN Creatinine Glucose POC Glucose (mg/dL) 111 H Hemoglobin A1c Calcium Magnesium ALT Troponin I Total Protein Albumin Procalcitonin 0.93 H Urine Protein Urine Blood Influenza Type A (PCR) 11/26/24 11/26/24 11/26/24 17:03 18:02 20:52 WBC RBC Hgb Hct MCHC RDW Neutrophils # Neutrophils # (Manual) Lymphocytes # Lymphocytes # (Manual) Monocytes # Metamyelocytes # (Man) Myelocytes # (Manual) Nucleated RBCs D-Dimer ABG pH ABG pCO2 ABG pO2 ABG HCO3 ABG Total CO2 ABG O2 Saturation Hemoglobin Sodium Potassium Chloride Carbon Dioxide BUN Creatinine Glucose POC Glucose (mg/dL) 161 H 138 H 130 H Hemoglobin A1c Calcium Magnesium ALT Troponin I Total Protein Albumin Procalcitonin Urine Protein Urine Blood Influenza Type A (PCR) 11/27/24 11/27/24 11/27/24 04:50 04:50 05:22 WBC 16.8 H RBC 3.52 L Hgb 10.5 L Hct 34.3 L MCHC 30.8 L RDW 16.4 H Neutrophils # 15.5 H Neutrophils # (Manual) Lymphocytes # 0.6 L Lymphocytes # (Manual) Monocytes # Metamyelocytes # (Man) Myelocytes # (Manual) Nucleated RBCs D-Dimer ABG pH ABG pCO2 ABG pO2 ABG HCO3 ABG Total CO2 ABG O2 Saturation Hemoglobin Sodium Potassium 3.3 L Chloride 108 H Carbon Dioxide 31 H BUN Creatinine Glucose 129 H POC Glucose (mg/dL) 138 H Hemoglobin A1c Calcium Magnesium ALT Troponin I Total Protein Albumin Procalcitonin Urine Protein Urine Blood Influenza Type A (PCR) 11/27/24 11/27/24 11/27/24 05:57 09:53 12:13 WBC RBC Hgb Hct MCHC RDW Neutrophils # Neutrophils # (Manual) Lymphocytes # Lymphocytes # (Manual) Monocytes # Metamyelocytes # (Man) Myelocytes # (Manual) Nucleated RBCs D-Dimer ABG pH ABG pCO2 ABG pO2 59 L* ABG HCO3 29 H ABG Total CO2 31 H ABG O2 Saturation 90.5 L Hemoglobin 10.2 L Sodium Potassium Chloride Carbon Dioxide BUN Creatinine Glucose POC Glucose (mg/dL) 196 H Hemoglobin A1c Calcium Magnesium ALT Troponin I Total Protein Albumin Procalcitonin Urine Protein Urine Blood Influenza Type A (PCR) Detected A 11/27/24 11/27/24 11/28/24 17:50 23:54 05:21 WBC RBC Hgb Hct MCHC RDW Neutrophils # Neutrophils # (Manual) Lymphocytes # Lymphocytes # (Manual) Monocytes # Metamyelocytes # (Man) Myelocytes # (Manual) Nucleated RBCs D-Dimer ABG pH ABG pCO2 47 H ABG pO2 75 L ABG HCO3 30 H ABG Total CO2 32 H ABG O2 Saturation Hemoglobin 9.8 L Sodium Potassium Chloride Carbon Dioxide BUN Creatinine Glucose POC Glucose (mg/dL) 194 H 138 H Hemoglobin A1c Calcium Magnesium ALT Troponin I Total Protein Albumin Procalcitonin Urine Protein Urine Blood Influenza Type A (PCR) 11/28/24 11/28/24 11/28/24 05:36 05:38 06:00 WBC 13.5 H RBC 3.38 L Hgb 10.0 L Hct 32.9 L MCHC 30.4 L RDW 16.6 H Neutrophils # 12.5 H Neutrophils # (Manual) Lymphocytes # 0.7 L Lymphocytes # (Manual) Monocytes # Metamyelocytes # (Man) Myelocytes # (Manual) Nucleated RBCs D-Dimer ABG pH ABG pCO2 ABG pO2 ABG HCO3 ABG Total CO2 ABG O2 Saturation Hemoglobin Sodium Potassium 3.0 L Chloride 108 H Carbon Dioxide 33 H BUN Creatinine Glucose 125 H POC Glucose (mg/dL) 139 H Hemoglobin A1c Calcium Magnesium ALT Troponin I Total Protein Albumin Procalcitonin Urine Protein Urine Blood Influenza Type A (PCR) 11/28/24 11/28/24 11/29/24 11:59 17:23 00:08 WBC RBC Hgb Hct MCHC RDW Neutrophils # Neutrophils # (Manual) Lymphocytes # Lymphocytes # (Manual) Monocytes # Metamyelocytes # (Man) Myelocytes # (Manual) Nucleated RBCs D-Dimer ABG pH ABG pCO2 ABG pO2 ABG HCO3 ABG Total CO2 ABG O2 Saturation Hemoglobin Sodium Potassium Chloride Carbon Dioxide BUN Creatinine Glucose POC Glucose (mg/dL) 134 H 154 H 114 H Hemoglobin A1c Calcium Magnesium ALT Troponin I Total Protein Albumin Procalcitonin Urine Protein Urine Blood Influenza Type A (PCR) 11/29/24 11/29/24 11/29/24 04:23 05:00 05:00 WBC RBC 3.39 L Hgb 9.7 L Hct 33.1 L MCHC 29.3 L RDW 16.4 H Neutrophils # Neutrophils # (Manual) Lymphocytes # 0.8 L Lymphocytes # (Manual) Monocytes # Metamyelocytes # (Man) Myelocytes # (Manual) Nucleated RBCs D-Dimer ABG pH ABG pCO2 ABG pO2 ABG HCO3 31 H ABG Total CO2 32 H ABG O2 Saturation Hemoglobin 9.7 L Sodium Potassium Chloride 108 H Carbon Dioxide BUN Creatinine Glucose 123 H POC Glucose (mg/dL) Hemoglobin A1c Calcium 8.3 L Magnesium ALT Troponin I Total Protein 4.7 L Albumin 2.2 L Procalcitonin Urine Protein Urine Blood Influenza Type A (PCR) 11/29/24 11/29/24 11/29/24 05:14 11:59 12:32 WBC RBC Hgb Hct MCHC RDW Neutrophils # Neutrophils # (Manual) Lymphocytes # Lymphocytes # (Manual) Monocytes # Metamyelocytes # (Man) Myelocytes # (Manual) Nucleated RBCs D-Dimer ABG pH ABG pCO2 ABG pO2 ABG HCO3 31 H ABG Total CO2 32 H ABG O2 Saturation Hemoglobin 10.1 L Sodium Potassium Chloride Carbon Dioxide BUN Creatinine Glucose POC Glucose (mg/dL) 130 H 151 H Hemoglobin A1c Calcium Magnesium ALT Troponin I Total Protein Albumin Procalcitonin Urine Protein Urine Blood Influenza Type A (PCR) 11/29/24 11/30/24 11/30/24 20:50 04:26 04:26 WBC RBC 3.32 L Hgb 9.7 L Hct 32.7 L MCHC 29.8 L RDW 16.4 H Neutrophils # Neutrophils # (Manual) Lymphocytes # Lymphocytes # (Manual) Monocytes # Metamyelocytes # (Man) Myelocytes # (Manual) Nucleated RBCs D-Dimer ABG pH ABG pCO2 ABG pO2 ABG HCO3 ABG Total CO2 ABG O2 Saturation Hemoglobin Sodium Potassium Chloride Carbon Dioxide BUN Creatinine 0.62 L Glucose POC Glucose (mg/dL) 116 H Hemoglobin A1c Calcium 8.0 L Magnesium ALT Troponin I Total Protein Albumin Procalcitonin Urine Protein Urine Blood Influenza Type A (PCR) 11/30/24 11/30/24 11/30/24 11:27 17:30 20:04 WBC RBC Hgb Hct MCHC RDW Neutrophils # Neutrophils # (Manual) Lymphocytes # Lymphocytes # (Manual) Monocytes # Metamyelocytes # (Man) Myelocytes # (Manual) Nucleated RBCs D-Dimer ABG pH ABG pCO2 ABG pO2 ABG HCO3 ABG Total CO2 ABG O2 Saturation Hemoglobin Sodium Potassium Chloride Carbon Dioxide BUN Creatinine Glucose POC Glucose (mg/dL) 191 H 209 H 250 H Hemoglobin A1c Calcium Magnesium ALT Troponin I Total Protein Albumin Procalcitonin Urine Protein Urine Blood Influenza Type A (PCR) 11/30/24 12/01/24 12/01/24 23:26 03:19 05:17 WBC RBC 3.41 L Hgb 10.0 L Hct 33.5 L MCHC 29.8 L RDW 16.1 H Neutrophils # Neutrophils # (Manual) Lymphocytes # Lymphocytes # (Manual) Monocytes # Metamyelocytes # (Man) Myelocytes # (Manual) Nucleated RBCs D-Dimer ABG pH ABG pCO2 ABG pO2 ABG HCO3 ABG Total CO2 ABG O2 Saturation Hemoglobin Sodium 136 L Potassium Chloride Carbon Dioxide BUN Creatinine 0.60 L Glucose 127 H POC Glucose (mg/dL) 144 H Hemoglobin A1c Calcium 7.8 L Magnesium ALT Troponin I Total Protein Albumin Procalcitonin Urine Protein Urine Blood Influenza Type A (PCR) 12/01/24 12/01/24 12/01/24 11:05 16:14 20:01 WBC RBC Hgb Hct MCHC RDW Neutrophils # Neutrophils # (Manual) Lymphocytes # Lymphocytes # (Manual) Monocytes # Metamyelocytes # (Man) Myelocytes # (Manual) Nucleated RBCs D-Dimer ABG pH ABG pCO2 ABG pO2 ABG HCO3 ABG Total CO2 ABG O2 Saturation Hemoglobin Sodium Potassium Chloride Carbon Dioxide BUN Creatinine Glucose POC Glucose (mg/dL) 121 H 166 H 139 H Hemoglobin A1c Calcium Magnesium ALT Troponin I Total Protein Albumin Procalcitonin Urine Protein Urine Blood Influenza Type A (PCR) 12/02/24 12/02/24 12/02/24 06:37 06:37 10:53 WBC RBC 3.46 L Hgb 10.0 L Hct 34.3 L MCHC 29.1 L RDW 16.0 H Neutrophils # Neutrophils # (Manual) Lymphocytes # Lymphocytes # (Manual) Monocytes # Metamyelocytes # (Man) Myelocytes # (Manual) Nucleated RBCs D-Dimer ABG pH ABG pCO2 ABG pO2 ABG HCO3 ABG Total CO2 ABG O2 Saturation Hemoglobin Sodium Potassium Chloride Carbon Dioxide BUN Creatinine 0.59 L Glucose POC Glucose (mg/dL) 156 H Hemoglobin A1c Calcium Magnesium ALT Troponin I Total Protein Albumin Procalcitonin Urine Protein Urine Blood Influenza Type A (PCR) 12/02/24 12/03/24 12/03/24 20:18 06:13 06:13 WBC RBC 3.47 L Hgb 10.2 L Hct 33.5 L MCHC 30.4 L RDW 16.1 H Neutrophils # Neutrophils # (Manual) Lymphocytes # Lymphocytes # (Manual) Monocytes # Metamyelocytes # (Man) Myelocytes # (Manual) Nucleated RBCs D-Dimer ABG pH ABG pCO2 ABG pO2 ABG HCO3 ABG Total CO2 ABG O2 Saturation Hemoglobin Sodium Potassium Chloride Carbon Dioxide 36 H BUN Creatinine Glucose 103 H POC Glucose (mg/dL) 172 H Hemoglobin A1c Calcium Magnesium ALT Troponin I Total Protein Albumin Procalcitonin Urine Protein Urine Blood Influenza Type A (PCR) 12/03/24 12/03/24 12/03/24 11:40 16:29 19:59 WBC RBC Hgb Hct MCHC RDW Neutrophils # Neutrophils # (Manual) Lymphocytes # Lymphocytes # (Manual) Monocytes # Metamyelocytes # (Man) Myelocytes # (Manual) Nucleated RBCs D-Dimer ABG pH ABG pCO2 ABG pO2 ABG HCO3 ABG Total CO2 ABG O2 Saturation Hemoglobin Sodium Potassium Chloride Carbon Dioxide BUN Creatinine Glucose POC Glucose (mg/dL) 124 H 198 H 144 H Hemoglobin A1c Calcium Magnesium ALT Troponin I Total Protein Albumin Procalcitonin Urine Protein Urine Blood Influenza Type A (PCR) 12/04/24 12/04/24 12/04/24 06:06 11:47 16:24 WBC RBC Hgb Hct MCHC RDW Neutrophils # Neutrophils # (Manual) Lymphocytes # Lymphocytes # (Manual) Monocytes # Metamyelocytes # (Man) Myelocytes # (Manual) Nucleated RBCs D-Dimer ABG pH ABG pCO2 ABG pO2 ABG HCO3 ABG Total CO2 ABG O2 Saturation Hemoglobin Sodium Potassium Chloride Carbon Dioxide BUN Creatinine Glucose POC Glucose (mg/dL) 122 H 144 H 157 H Hemoglobin A1c Calcium Magnesium ALT Troponin I Total Protein Albumin Procalcitonin Urine Protein Urine Blood Influenza Type A (PCR) 12/04/24 12/05/24 12/05/24 20:05 06:04 16:55 WBC RBC Hgb Hct MCHC RDW Neutrophils # Neutrophils # (Manual) Lymphocytes # Lymphocytes # (Manual) Monocytes # Metamyelocytes # (Man) Myelocytes # (Manual) Nucleated RBCs D-Dimer ABG pH ABG pCO2 ABG pO2 ABG HCO3 ABG Total CO2 ABG O2 Saturation Hemoglobin Sodium Potassium Chloride Carbon Dioxide BUN Creatinine Glucose POC Glucose (mg/dL) 187 H 124 H 127 H Hemoglobin A1c Calcium Magnesium ALT Troponin I Total Protein Albumin Procalcitonin Urine Protein Urine Blood Influenza Type A (PCR) 12/06/24 12/06/24 12/06/24 06:01 11:48 16:37 WBC RBC Hgb Hct MCHC RDW Neutrophils # Neutrophils # (Manual) Lymphocytes # Lymphocytes # (Manual) Monocytes # Metamyelocytes # (Man) Myelocytes # (Manual) Nucleated RBCs D-Dimer ABG pH ABG pCO2 ABG pO2 ABG HCO3 ABG Total CO2 ABG O2 Saturation Hemoglobin Sodium Potassium Chloride Carbon Dioxide BUN Creatinine Glucose POC Glucose (mg/dL) 130 H 217 H 161 H Hemoglobin A1c Calcium Magnesium ALT Troponin I Total Protein Albumin Procalcitonin Urine Protein Urine Blood Influenza Type A (PCR) 12/06/24 12/07/24 12/07/24 19:49 06:06 11:39 WBC RBC Hgb Hct MCHC RDW Neutrophils # Neutrophils # (Manual) Lymphocytes # Lymphocytes # (Manual) Monocytes # Metamyelocytes # (Man) Myelocytes # (Manual) Nucleated RBCs D-Dimer ABG pH ABG pCO2 ABG pO2 ABG HCO3 ABG Total CO2 ABG O2 Saturation Hemoglobin Sodium Potassium Chloride Carbon Dioxide BUN Creatinine Glucose POC Glucose (mg/dL) 384 H 127 H 124 H Hemoglobin A1c Calcium Magnesium ALT Troponin I Total Protein Albumin Procalcitonin Urine Protein Urine Blood Influenza Type A (PCR) 12/07/24 12/07/24 12/07/24 16:59 20:54 22:52 WBC RBC Hgb Hct MCHC RDW Neutrophils # Neutrophils # (Manual) Lymphocytes # Lymphocytes # (Manual) Monocytes # Metamyelocytes # (Man) Myelocytes # (Manual) Nucleated RBCs D-Dimer ABG pH ABG pCO2 ABG pO2 ABG HCO3 ABG Total CO2 ABG O2 Saturation Hemoglobin Sodium Potassium Chloride Carbon Dioxide BUN Creatinine Glucose POC Glucose (mg/dL) 246 H 218 H 295 H Hemoglobin A1c Calcium Magnesium ALT Troponin I Total Protein Albumin Procalcitonin Urine Protein Urine Blood Influenza Type A (PCR) 12/08/24 12/08/24 12/08/24 06:01 11:41 16:40 WBC RBC Hgb Hct MCHC RDW Neutrophils # Neutrophils # (Manual) Lymphocytes # Lymphocytes # (Manual) Monocytes # Metamyelocytes # (Man) Myelocytes # (Manual) Nucleated RBCs D-Dimer ABG pH ABG pCO2 ABG pO2 ABG HCO3 ABG Total CO2 ABG O2 Saturation Hemoglobin Sodium Potassium Chloride Carbon Dioxide BUN Creatinine Glucose POC Glucose (mg/dL) 223 H 241 H 169 H Hemoglobin A1c Calcium Magnesium ALT Troponin I Total Protein Albumin Procalcitonin Urine Protein Urine Blood Influenza Type A (PCR) 12/08/24 12/09/24 12/09/24 20:09 06:00 11:05 WBC RBC Hgb Hct MCHC RDW Neutrophils # Neutrophils # (Manual) Lymphocytes # Lymphocytes # (Manual) Monocytes # Metamyelocytes # (Man) Myelocytes # (Manual) Nucleated RBCs D-Dimer ABG pH ABG pCO2 ABG pO2 ABG HCO3 ABG Total CO2 ABG O2 Saturation Hemoglobin Sodium Potassium Chloride Carbon Dioxide BUN Creatinine Glucose POC Glucose (mg/dL) 271 H 207 H 175 H Hemoglobin A1c Calcium Magnesium ALT Troponin I Total Protein Albumin Procalcitonin Urine Protein Urine Blood Influenza Type A (PCR) 12/09/24 12/09/24 12/10/24 16:27 20:26 06:21 WBC RBC Hgb Hct MCHC RDW Neutrophils # Neutrophils # (Manual) Lymphocytes # Lymphocytes # (Manual) Monocytes # Metamyelocytes # (Man) Myelocytes # (Manual) Nucleated RBCs D-Dimer ABG pH ABG pCO2 ABG pO2 ABG HCO3 ABG Total CO2 ABG O2 Saturation Hemoglobin Sodium Potassium Chloride Carbon Dioxide BUN Creatinine Glucose POC Glucose (mg/dL) 215 H 252 H 309 H Hemoglobin A1c Calcium Magnesium ALT Troponin I Total Protein Albumin Procalcitonin Urine Protein Urine Blood Influenza Type A (PCR) 12/10/24 12/10/24 12/10/24 11:36 16:26 20:19 WBC RBC Hgb Hct MCHC RDW Neutrophils # Neutrophils # (Manual) Lymphocytes # Lymphocytes # (Manual) Monocytes # Metamyelocytes # (Man) Myelocytes # (Manual) Nucleated RBCs D-Dimer ABG pH ABG pCO2 ABG pO2 ABG HCO3 ABG Total CO2 ABG O2 Saturation Hemoglobin Sodium Potassium Chloride Carbon Dioxide BUN Creatinine Glucose POC Glucose (mg/dL) 316 H 260 H 334 H Hemoglobin A1c Calcium Magnesium ALT Troponin I Total Protein Albumin Procalcitonin Urine Protein Urine Blood Influenza Type A (PCR) 12/11/24 12/11/24 12/11/24 03:58 06:35 11:31 WBC RBC Hgb Hct MCHC RDW Neutrophils # Neutrophils # (Manual) Lymphocytes # Lymphocytes # (Manual) Monocytes # Metamyelocytes # (Man) Myelocytes # (Manual) Nucleated RBCs D-Dimer ABG pH 7.28 L ABG pCO2 76 H* ABG pO2 60 L ABG HCO3 36 H ABG Total CO2 38 H ABG O2 Saturation 85.5 L Hemoglobin 9.0 L Sodium Potassium Chloride Carbon Dioxide BUN Creatinine Glucose POC Glucose (mg/dL) 206 H 200 H Hemoglobin A1c Calcium Magnesium ALT Troponin I Total Protein Albumin Procalcitonin Urine Protein Urine Blood Influenza Type A (PCR) 12/11/24 12/11/24 12/11/24 11:32 18:41 21:28 WBC RBC Hgb Hct MCHC RDW Neutrophils # Neutrophils # (Manual) Lymphocytes # Lymphocytes # (Manual) Monocytes # Metamyelocytes # (Man) Myelocytes # (Manual) Nucleated RBCs D-Dimer ABG pH ABG pCO2 ABG pO2 ABG HCO3 ABG Total CO2 ABG O2 Saturation Hemoglobin Sodium Potassium Chloride Carbon Dioxide BUN Creatinine Glucose POC Glucose (mg/dL) 182 H 146 H 153 H Hemoglobin A1c Calcium Magnesium ALT Troponin I Total Protein Albumin Procalcitonin Urine Protein Urine Blood Influenza Type A (PCR) 12/12/24 12/12/24 12/12/24 05:53 05:53 12:59 WBC RBC 3.75 L Hgb 10.8 L Hct 36.5 L MCHC 29.4 L RDW 17.0 H Neutrophils # Neutrophils # (Manual) 9.60 H Lymphocytes # Lymphocytes # (Manual) 0.32 L Monocytes # Metamyelocytes # (Man) 0.11 H Myelocytes # (Manual) 0.11 H Nucleated RBCs 4 H D-Dimer ABG pH ABG pCO2 ABG pO2 ABG HCO3 ABG Total CO2 ABG O2 Saturation Hemoglobin Sodium 135 L Potassium Chloride 92 L Carbon Dioxide 38 H BUN 40 H Creatinine Glucose 181 H POC Glucose (mg/dL) 163 H Hemoglobin A1c Calcium Magnesium ALT 65 H Troponin I Total Protein 6.1 L Albumin 3.2 L Procalcitonin Urine Protein Urine Blood Influenza Type A (PCR) 12/12/24 12/12/24 12/12/24 16:03 21:25 21:34 WBC RBC Hgb Hct MCHC RDW Neutrophils # Neutrophils # (Manual) Lymphocytes # Lymphocytes # (Manual) Monocytes # Metamyelocytes # (Man) Myelocytes # (Manual) Nucleated RBCs D-Dimer ABG pH ABG pCO2 ABG pO2 ABG HCO3 ABG Total CO2 ABG O2 Saturation Hemoglobin Sodium Potassium Chloride Carbon Dioxide BUN Creatinine Glucose POC Glucose (mg/dL) 277 H 502 H* 255 H Hemoglobin A1c Calcium Magnesium ALT Troponin I Total Protein Albumin Procalcitonin Urine Protein Urine Blood Influenza Type A (PCR) 12/13/24 12/13/24 12/13/24 02:43 02:43 10:48 WBC RBC 3.59 L Hgb 10.4 L Hct 35.5 L MCHC 29.4 L RDW 16.9 H Neutrophils # Neutrophils # (Manual) 8.55 H Lymphocytes # Lymphocytes # (Manual) 0.36 L Monocytes # Metamyelocytes # (Man) Myelocytes # (Manual) 0.09 H Nucleated RBCs 5 H D-Dimer ABG pH 7.34 L ABG pCO2 70 H ABG pO2 66 L ABG HCO3 37 H ABG Total CO2 39 H ABG O2 Saturation 91.6 L Hemoglobin 10.7 L Sodium 134 L Potassium 3.2 L Chloride 94 L Carbon Dioxide 39 H BUN 39 H Creatinine Glucose 193 H POC Glucose (mg/dL) Hemoglobin A1c Calcium Magnesium ALT Troponin I Total Protein Albumin Procalcitonin Urine Protein Urine Blood Influenza Type A (PCR) 12/13/24 12/13/24 12/13/24 11:22 14:11 15:46 WBC RBC Hgb Hct MCHC RDW Neutrophils # Neutrophils # (Manual) Lymphocytes # Lymphocytes # (Manual) Monocytes # Metamyelocytes # (Man) Myelocytes # (Manual) Nucleated RBCs D-Dimer ABG pH ABG pCO2 ABG pO2 ABG HCO3 ABG Total CO2 ABG O2 Saturation Hemoglobin Sodium Potassium 3.2 L Chloride Carbon Dioxide BUN Creatinine Glucose POC Glucose (mg/dL) 265 H 143 H Hemoglobin A1c Calcium Magnesium ALT Troponin I Total Protein Albumin Procalcitonin Urine Protein Urine Blood Influenza Type A (PCR) 12/13/24 12/13/24 12/14/24 18:59 20:11 01:03 WBC RBC Hgb Hct MCHC RDW Neutrophils # Neutrophils # (Manual) Lymphocytes # Lymphocytes # (Manual) Monocytes # Metamyelocytes # (Man) Myelocytes # (Manual) Nucleated RBCs D-Dimer ABG pH ABG pCO2 ABG pO2 ABG HCO3 ABG Total CO2 ABG O2 Saturation Hemoglobin Sodium Potassium 3.4 L 3.3 L Chloride Carbon Dioxide BUN Creatinine Glucose POC Glucose (mg/dL) 292 H Hemoglobin A1c Calcium Magnesium ALT Troponin I Total Protein Albumin Procalcitonin Urine Protein Urine Blood Influenza Type A (PCR) 12/14/24 12/14/24 12/14/24 04:20 06:15 06:48 WBC 11.7 H RBC 3.73 L Hgb 10.7 L Hct 37.3 L MCHC 28.8 L RDW 16.8 H Neutrophils # Neutrophils # (Manual) Lymphocytes # Lymphocytes # (Manual) Monocytes # Metamyelocytes # (Man) Myelocytes # (Manual) Nucleated RBCs D-Dimer ABG pH ABG pCO2 ABG pO2 ABG HCO3 ABG Total CO2 ABG O2 Saturation Hemoglobin Sodium Potassium Chloride Carbon Dioxide 31 H BUN 36 H Creatinine Glucose 237 H POC Glucose (mg/dL) 239 H Hemoglobin A1c Calcium Magnesium ALT Troponin I Total Protein Albumin Procalcitonin Urine Protein Urine Blood Influenza Type A (PCR) 12/14/24 07:44 WBC RBC Hgb Hct MCHC RDW Neutrophils # Neutrophils # (Manual) Lymphocytes # Lymphocytes # (Manual) Monocytes # Metamyelocytes # (Man) Myelocytes # (Manual) Nucleated RBCs D-Dimer ABG pH 7.31 L ABG pCO2 67 H ABG pO2 77 L ABG HCO3 33 H ABG Total CO2 36 H ABG O2 Saturation Hemoglobin 10.5 L Sodium Potassium Chloride Carbon Dioxide BUN Creatinine Glucose POC Glucose (mg/dL) Hemoglobin A1c Calcium Magnesium ALT Troponin I Total Protein Albumin Procalcitonin Urine Protein Urine Blood Influenza Type A (PCR) Assessment and Plan Assessment: 1. Toxic metabolic encephalopathy: Multifactorial-secondary to hypercapnia, pneumonia, brain mets, prolonged hospitalization 2. Lung cancer with brain metastases 3. Reported history of seizures, likely secondary to brain mets 4. Plan: 1. Will order MRI of the brain to evaluate possible increase in edema, surrounding brain metastases 2. EEG will be ordered 3. Attempt to keep appropriate sleep/wake cycle 4. Will check other labs for causes of neuropathy-TSH, B12, folate, vitamin D level, serum protein electrophoresis Thank you for allowing us to participate in the care of this patient Time with Patient: Greater than 30 (65 minutes were spent caring for this patie nt today including, obtaining history, examining the patient, reviewing imaging, chart documentation, labs, placing orders and creating this note)
[2024-12-14 16:17] LABS: Glucose,Whole Blood 228 mg/dL (70-110)
--- NOTE | 2024-12-14 16:35 | P.PN ---
Subjective Progress Note Date: 12/14/24 Principal diagnosis: Reason for follow-up is left elbow septic olecranon bursitis/haemophilus pneumonia Patient is a 59-year-old male with a past medical history significant for hypertension seizure disorder atrial fibrillation he did have a metastatic lung cancer has been brought to the hospital for worsening swelling to the left elbow with a culture positive for MRSA concerning for septic olecranon bursitis. On today's evaluation that is 12/14/2024, patient did not have any fever and seem to be slightly more awake today he is currently on 2 L current oxygen den ies any chest pain did have a cough no vomiting or diarrhea has been reported. Patient white count is 11.7, creatinine is 0.89 Objective - Vital Signs Vital signs: Vital Signs Temp 97.7 F 12/14/24 16:00 Pulse 109 H 12/14/24 16:00 Resp 15 12/14/24 16:00 BP 106/73 12/14/24 16:00 Pulse Ox 94 L 12/14/24 16:00 FiO2 50 12/14/24 08:00 Intake & Output 12/13/24 12/14/24 12/14/24 18:59 06:59 18:59 Intake Total 500 1260 885 Output Total 3550 1690 1950 Balance -3050 -430 -1065 Weight 76.4 kg Intake: IV 300 300 235 0.9 Normal Saline 300 300 135 Potassium Chloride 10 meq 100 In Water For Injection 1 100ml.bag @ 100 mls/hr IVPB Q1HR [facility] Rx#: [id number] Oral 200 960 650 Output: Urine 3550 1690 1950 Other: Voiding Method External Catheter External Catheter External Catheter ABP, PAP, CO, CI - Last Documented Arterial Blood Pressure 131/85 - Exam GENERAL DESCRIPTION: Middle-age male lying in bed in no distress RESPIRATORY SYSTEM: Unlabored breathing , decreased breath sounds at bases HEART: S1 S2 regular rate and rhythm , ABDOMEN: Soft , no tenderness EXTREMITIES: No edema feet - Labs CBC & Chem 7: 12/14/24 04:20 12/14/24 06:15 Labs: Abnormal Lab Results - Last 24 Hours (Table) 12/13/24 12/13/24 12/14/24 Range/Units 18:59 20:11 01:03 WBC (3.8-10.6) k/uL RBC (4.30-5.90) m/uL Hgb (13.0-17.5) gm/dL Hct (39.0-53.0) % MCHC (31.0-37.0) g/dL RDW (11.5-15.5) % ABG pH (7.35-7.45) ABG pCO2 (35-45) mmHg ABG pO2 (83-108) mmHg ABG HCO3 (21-25) mmol/L ABG Total CO2 (19-24) mmol/L Hemoglobin (13.0-17.5) gm/dL Potassium 3.4 L 3.3 L (3.5-5.1) mmol/L Carbon Dioxide (22-30) mmol/L BUN (9-20) mg/dL Glucose (74-99) mg/dL POC Glucose (mg/dL) 292 H (70-110) mg/dL 12/14/24 12/14/24 12/14/24 Range/Units 04:20 06:15 06:48 WBC 11.7 H (3.8-10.6) k/uL RBC 3.73 L (4.30-5.90) m/uL Hgb 10.7 L (13.0-17.5) gm/dL Hct 37.3 L (39.0-53.0) % MCHC 28.8 L (31.0-37.0) g/dL RDW 16.8 H (11.5-15.5) % ABG pH (7.35-7.45) ABG pCO2 (35-45) mmHg ABG pO2 (83-108) mmHg ABG HCO3 (21-25) mmol/L ABG Total CO2 (19-24) mmol/L Hemoglobin (13.0-17.5) gm/dL Potassium (3.5-5.1) mmol/L Carbon Dioxide 31 H (22-30) mmol/L BUN 36 H (9-20) mg/dL Glucose 237 H (74-99) mg/dL POC Glucose (mg/dL) 239 H (70-110) mg/dL 12/14/24 12/14/24 12/14/24 Range/Units 07:44 12:01 16:14 WBC (3.8-10.6) k/uL RBC (4.30-5.90) m/uL Hgb (13.0-17.5) gm/dL Hct (39.0-53.0) % MCHC (31.0-37.0) g/dL RDW (11.5-15.5) % ABG pH 7.31 L (7.35-7.45) ABG pCO2 67 H (35-45) mmHg ABG pO2 77 L (83-108) mmHg ABG HCO3 33 H (21-25) mmol/L ABG Total CO2 36 H (19-24) mmol/L Hemoglobin 10.5 L (13.0-17.5) gm/dL Potassium (3.5-5.1) mmol/L Carbon Dioxide (22-30) mmol/L BUN (9-20) mg/dL Glucose (74-99) mg/dL POC Glucose (mg/dL) 197 H 228 H (70-110) mg/dL Assessment and Plan (1) Septic olecranon bursitis of left elbow Current Visit: Yes Status: Acute Code(s): M71.122 - OTHER INFECTIVE BURSITIS, LEFT ELBOW SNOMED Code(s): 9551323920626894 (2) Allergy to cephalosporin Current Visit: No Status: Acute Code(s): Z88.1 - ALLERGY STATUS TO OTHER ANTIBIOTIC AGENTS SNOMED Code(s): 378801862 (3) MRSA (methicillin resistant Staphylococcus aureus) infection Current Visit: Yes Status: Acute Code(s): A49.02 - METHICILLIN RESIS STAPH INFECTION, UNSP SITE SNOMED Code(s): 496738689 (4) Influenza A Current Visit: Yes Status: Acute Code(s): J10.1 - FLU DUE TO OTH IDENT INFLUENZA VIRUS W OTH RESP MANIFEST SNOMED Code(s): 819070811 (5) Pneumonia Current Visit: No Status: Acute Code(s): J18.9 - PNEUMONIA, UNSPECIFIED OR GANISM SNOMED Code(s): 384676411 Plan: 1patient being admitted to the hospital for left elbow pain swelling redness he did have a wound with a culture positive for MRSA in the outpatient setting now with concern for left elbow septic olecranon bursitis for the patient received adequate IV vancomycin and did have healing of his left elbow ulcer/olecranon bursitis. 2patient with influenza A for which the patient has completed 5-day course of Tamiflu 3patient is afebrile and is requiring less supplemental oxygen will continue with Zosyn and monitor clinical course closely Dictation was produced using [employer] dictation software. please excuse any grammatical, word or spelling errors.
--- NOTE | 2024-12-14 16:35 | P.PN ---
Subjective Progress Note Date: 12/10/24 Principal diagnosis: Reason for follow-up is left elbow septic olecranon bursitis/haemophilus pneumonia Patient is a 59-year-old male with a past medical history significant for hypertension seizure disorder atrial fibrillation he did have a metastatic lung cancer has been brought to the hospital for worsening swelling to the left elbow with a culture positive for MRSA concerning for septic olecranon bursitis. On today's evaluation that is 12/10/2024, Patient is afebrile this morning patient seem to be more awake this morning complaining of shortness of breath an d is requiring 15 L high flow nasal oxygen no vomiting diarrhea and the changes reported. No new lab has been repeated today chest x-ray this morning multifocal patchy airspace opacity pronounced through the right lung Objective - Vital Signs Vital signs: Vital Signs Temp 97.5 F L 12/10/24 11:49 Pulse 106 H 12/10/24 13:04 Resp 19 12/10/24 13:04 BP 146/124 12/10/24 11:49 Pulse Ox 92 L 12/10/24 11:49 FiO2 50 12/02/24 08:18 Intake & Output 12/09/24 12/10/24 12/10/24 18:59 06:59 18:59 Intake Total 472 360 Output Total 702 6 Balance -230 -6 360 Weight 74.5 kg Intake: Oral 472 360 Output: Urine 700 2 Stool 2 4 Other: Voiding Method External Catheter External Catheter External Catheter # Voids 2 1 # Bowel Movements 1 1 1 ABP, PAP, CO, CI - Last Documented Arterial Blood Pressure 131/85 - Exam GENERAL DESCRIPTION: Middle-age male lying in bed in no distress RESPIRATORY SYSTEM: Unlabored breathing , decreased breath sounds at bases HEART: S1 S2 regular rate and rhythm , ABDOMEN: Soft , no tenderness EXTREMITIES: No edema feet - Labs CBC & Chem 7: 12/03/24 06:13 12/03/24 06:13 Labs: Abnormal Lab Results - Last 24 Hours (Table) 12/09/24 12/09/24 12/10/24 Range/Units 16:27 20:26 06:21 POC Glucose (mg/dL) 215 H 252 H 309 H (70-110) mg/dL 12/10/24 Range/Units 11:36 POC Glucose (mg/dL) 316 H (70-110) mg/dL Assessment and Plan (1) Septic olecranon bursitis of left elbow Current Visit: Yes Status: Acute Code(s): M71.122 - OTHER INFECTIVE BURSITIS, LEFT ELBOW SNOMED Code(s): 5462916157371522 (2) Allergy to cephalosporin Current Visit: No Status: Acute Code(s): Z88.1 - ALLERGY STATUS TO OTHER ANTIBIOTIC AGENTS SNOMED Code(s): 031183281 (3) MRSA (methicillin resistant Staphylococcus aureus) infection Current Visit: Yes Status: Acute Code(s): A49.02 - METHICILLIN RESIS STAPH INFECTION, UNSP SITE SNOMED Code(s): 332981311 (4) Influenza A Current Visit: Yes Status: Acute Code(s): J10.1 - FLU DUE TO OTH IDENT INFLUENZA VIRUS W OTH RESP MANIFEST SNOMED Code(s): 144620143 (5) Pneumonia Current Visit: No Status: Acute Code(s): J18.9 - PNEUMONIA, UNSPECIFIED ORGANISM SNOMED Code(s): 393343816 Plan: 1patient being admitted to the hospital for left elbow pain swelling redness he did have a wound with a culture positive for MRSA in the outpatient setting now with concern for left elbow septic olecranon bursitis for the patient received adequate IV vancomycin and did have healing of his left elbow ulcer/olecranon bursitis. 2patient with influenza A for which the patient has completed 5-day course of Tamiflu 3patient with pneumonia blood cultures are so far negative, sputum is growing Haemophilus influenzae has received adequate Zosyn on Augmentin some worsening of the chest x-ray finding questionably aspiration versus fluid need to be m onitored closely Dictation was produced using [employer] software. please excuse any grammatical, word or spelling errors.
[2024-12-14 19:39] LABS: Glucose,Whole Blood 392 mg/dL (70-110)
[2024-12-14 23:03] LABS: Glucose,Whole Blood 266 mg/dL (70-110)
[2024-12-15 03:11] LABS: Anisocytosis Slight; Basophils % (A) 0 %; Eosinophils % (A) 0 %; HCT 38.1 % (39.0-53.0); Hypochromasia Marked; Lymphocytes # (A) 0.2 k/uL (1.0-4.8); Lymphocytes % (A) 2 %; MCH 28.5 pg (25.0-35.0); MCHC 28.9 g/dL (31.0-37.0); MCV 98.6 fL (80.0-100.0); Macrocytosis Slight; Mean Platelet Volume 9.2; Monocytes # (A) 0.7 k/uL (0-1.0); Monocytes % (A) 6 %; Neutrophils % (A) 91 %; Platelet Count 314 k/uL (150-450); RBC 3.86 m/uL (4.30-5.90); RDW 16.9 % (11.5-15.5); WBC 12.1 k/uL (3.8-10.6)
[2024-12-15 03:44] LABS: African American GFR (CKD) >90 (>60 ml/min/1.73 sqM); Anion Gap 3 mmol/L; Blood Urea Nitrogen 36 mg/dL (9-20); Calcium 8.7 mg/dL (8.4-10.2); Carbon Dioxide 33 mmol/L (22-30); Chloride 101 mmol/L (98-107); Glucose 230 mg/dL (74-99); Magnesium 2.1 mg/dL (1.6-2.3); Non-African American GFR(CKD) >90 (>60 ml/min/1.73 sqM); Potassium 3.3 mmol/L (3.5-5.1); Sodium 137 mmol/L (137-145)
[2024-12-15 03:45] LABS: ABG Base Excess 4.7 mmol/L; ABG HCO3 31 mmol/L (21-25); ABG Oxygen Saturation 95.2 % (94-97); ABG PCO2 56 mmHg (35-45); ABG PH 7.36 (7.35-7.45); ABG PO2 80 mmHg (83-108); ABG TCO2 33 mmol/L (19-24); Allen Test Performed? Yes
[2024-12-15 05:21] LABS: Glucose,Whole Blood 236 mg/dL (70-110)
[2024-12-15] MEDS: POTASSIUM CHLORIDE ER 20 MEQ TAB.ER PO SCH (05:51)
--- NOTE | 2024-12-15 07:33 | XR ---
EXAMINATION TYPE: XR chest 1V DATE OF EXAM: 12/15/2024 4:33 AM COMPARISON: Multiple radiographs, with the most recent on 12/14/2024 TECHNIQUE: XR chest 1V Portable AP radiograph of the chest. CLINICAL INDICATION:Male, 59 years old with history of Follow-up pneumonia; FINDINGS: Lungs/Pleura: No pneumothorax or pleural effusion. Similar patchy reticular airspace opacities most p rominent within the right upper lung. Elevation of the right hemidiaphragm. Pulmonary vascularity: Unremarkable. Heart/mediastinum: Cardiomediastinal silhouette is enlarged and stable. Stable prominence of the bila teral carlos eduardo. Atherosclerotic calcifications are seen in the aorta. Musculoskeletal: No acute osseous pathology. IMPRESSION: Similar patchy airspace opacities most prominently within the right upper lung concerning for pneumon ia. [facility], , 12/15/2024 7:31 AM
[2024-12-15 11:10] LABS: Glucose,Whole Blood 230 mg/dL (70-110)
[2024-12-15] MEDS: predniSONE 20 MG TAB PO STA (12:44)
--- NOTE | 2024-12-15 13:20 | P.PN ---
Subjective Progress Note Date: 12/15/24 On today's evaluation of 12/09/2024, the patient remains confused, lethargic, at times agitated, given Haldol and at the time of my evaluation, the patient was essentially lethargic somnolent and difficult to arouse. He was unable to communicate. He has a sitter at the bedside. Noted, the patient is quite debilitated. This patient has history of metastatic small cell lung cancer receives therapy back in 2021. Please note my detailed description and progression of his small cell lung cancer. The most recent CAT scan of the chest that was done on 11/18/2024 showed no disease progression. However, during this current hospital stay, the patient developed an extensive bilateral pneumonia right more than left. He required intubation mechanical ventilation and he was ultimately extubated on 11/29/2024. The most recent chest x-ray from him was on 12/03/2024 still showing extensive consolidation in the lungs bilaterally. At this point, the patient is on 8 L of oxygen by nasal cannula with a pulse ox of 97%. His oral intake is essentially limited based on my conversations with the nursing staff. He remains on Augmentin as the patient was found to have haemophilus influenza on his sputum on 11/26/2024 and this will be continued. Remains on IV Solu-Medrol 60 mg every 6 hours. Remains on DuoNeb nebulized treatments [id number]. Remains on a combination of Perforomist and Pulmicort nebulized treatments twice a day. Remains on IV Keppra. Remains encephalopathic and extensively debilitated. He is on amiodarone regarding chronic atrial fibrillation. He is also on metoprolol 100 mg p.o. daily. And atrial fibrillation. No anticoagulants for now. On 12/10/2024, the patient remains altered and confused. He is having ongoing cough and congestion and respiratory distress even at rest. His oxygenation is also gotten worse and the patient is currently on 15 L of oxygen by nasal cannula with a pulse ox of 92%. I repeated the chest x-ray this morning and the patient continues to have stable multifocal patchy airspace disease more so in the right upper lobe. The most recent sputum sample from 11/26/2024 was positive for haemophilus influenza and the patient was treated accordingly and he is currently still on oral Augmentin. Remains on DuoNeb updrafts. Remains on Perforomist and Pulmicort nebulized treatments twice a day. Remains on IV Solu- Medrol 60 mg every 6 hours. Is also known to have metastatic small cell lung cancer. Extremely debilitated. Weak. Remains in atrial fibrillation. On 12/11/2024, the patient was quite restless and lethargic on the medical floor. I saw this patient earlier this morning and a blood gas was done that showed a pH of 7.28 with a pCO2 of 76 and pO2 of 60 and this was done while the patient was being on 15 L of oxygen by nasal cannula. A follow-up chest x-ray was also done and it shows diffuse bilateral airspace disease with probably some interval worsening. Based on that, the patient was transferred to the intensive care unit for further monitoring. Contemplating intubation mechanical ventilation. His CODE STATUS remains full. He is going to be monitored very closely. Unable to give a sputum sample and the most recent sputum sample was positive for haemophilus influenza. The patient remains on broad-spectrum antibiotics and the patient was switched again to IV Zosyn. Rest of the medications remain unchanged. Remains on bronchodilators. Remains on steroids. Very much debilitated at this point in time. On 12/12/2024, the patient is being seen for a follow-up. Significant improvement compared to yesterday. Noted I was contemplating on intubating this patient. However, the patient did very well and seems to be much more calm and comfortable and breathing is nonlabored on today's evaluation. Furthermore, the patient denies having any significant shortness of breath. A follow-up chest x- ray was obtained today and it shows interval improvement in aeration and improved airspace disease bilaterally. The patient was on 15 L of oxygen by nasal cannula and FiO2 is being gradually weaned off. The patient has diuresed nicely with IV Lasix and this will be continued. Echocardiogram was also o btained today and showed ejection fraction 55 to 60%. There is severe RV dilatation and moderate reduced RV global function with moderate degree of pulm hypertension with estimated right ventricular systolic pressure of around 50. There is also moderate mitral and tricuspid regurgitation and mild to moderate aortic regurgitation. Blood work from today shows a white cell count of 10.6, hemoglobin 10.8 and a platelet count of 311. BUN is 40 with a creatinine of 0.7. Sodium is 135 and a serum bicarb is at 35. The fluid balance over the past 24 hours has been -1.3 L. No focal neurological deficits. On 12/13/2024, the patient is still having on and off episodes of confusion. No agitation. Sitter at the bedside. Meanwhile, respiratory status is stable. The patient is afebrile. The patient's pulse ox is 93% centimeters of O2 nasal cannula. Chest x-ray findings are essentially stable compared to yesterday. Continues to diurese with IV Lasix. The patient is currently on IV Lasix and fluid balance -3.1 L over the past 24 hours. Patient is also on Diamox. Blood work from today shows a white cell count of 9 with a hemoglobin 10.4 and platelet count of 315. The blood gas from today showed a pH of 7.34 with a pCO2 17 pO2 of 66. Sodium is at 134, potassium is at 3.2, bicarb is at 39, BUN 39 and a creatinine of 1.03. No hypotension. No agitation. Remains on IV Zosyn. Remains on amiodarone 2 mg p.o. twice a day and the patient is also on metoprolol 100 mg p.o. daily. Remains on IV Solu-Medrol. Remains on DuoNeb nebulizers [id number]. Remains on IV Lasix. Remains on IV Diamox. On 12/14/2024, the patient is being seen for a follow-up. Waxing and waning ment ation. Based on that, neurology evaluation will be also requested. Noted the patient's most recent CAT scan of the brain showed no acute abnormalities and there was evidence of previously treated SURGICAL ENDOSCOPIST lesions and the patient is known to have previous SURGICAL ENDOSCOPIST metastases. Meanwhile, respiratory status is stable. The patient has been weaned down and the patient's current FiO2 is at 2 L nasal cannula with pulse ox of 95%. A follow-up blood gas was done and showed a pH of 7.31 with a pCO2 of 67 and pO2 of 77. The patient remains on IV Lasix. The patient remains on Diamox. Fluid balance over the past 24 hours has been -3.4 L. Meanwhile, the serum bicarb is currently 31. Sodium levels at 137, potassium level of 3.9. The white cell count 11.7 with a hemoglobin of 10.7. Chest x-ray findings are essentially stable and the patient continues to have stable patchy airspace disease specially in the right upper lobe. No active respiratory difficulties. Some limited cough and congestion. Unable to bring up sputum. Remains on IV Zosyn. On 12/15/2024, the patient's mental status continues to wax and wane. This morning, he is found to be awake and alert and communicating. No significant respiratory distress. He is currently on 2 L of oxygen by nasal cannula. He was diuresed adequately over the past 24 to 48 hours and the fluid balance is - 2.1 L over the past 24 hours. Follow-up blood gas from today showed a pH of 7.36 with pCO2 56 and pO2 of 80 and the patient has a stable chest x-ray. The serum bicarb is currently at 33 with a sodium level of 137 and a potassium level of 3.3. The white cell count of 12.1 with a hemoglobin of 11. No other issues otherwise. The patient was consulted by neurology and he is going to have a follow-up EEG and MRI of the brain. Objective - Vital Signs Vital signs: Vital Signs Temp 98.2 F 12/15/24 04:00 Pulse 90 12/15/24 08:24 Resp 16 12/15/24 07:00 BP 133/89 12/15/24 07:00 Pulse Ox 96 12/15/24 07:00 FiO2 50 12/14/24 08:00 Intake & Output 12/14/24 12/15/24 12/15/24 18:59 06:59 18:59 Intake Total 1675 260 Output Total 2150 1999 Balance -475 -1740 Weight 77.2 kg Intake: IV 285 260 0.9 Normal Saline 185 260 Potassium Chloride 10 meq 100 In Water For Injection 1 100ml.bag @ 100 mls/hr IVPB Q1HR [facility] Rx#: [id number] Oral 1390 Output: Urine 2150 1999 Other: Voiding Method External Catheter External Catheter ABP, PAP, CO, CI - Last Documented Arterial Blood Pressure 131/85 - Exam No acute distress, awake alert and communicating. No major respiratory distress at rest. The patient is currently on 2 L of O2 nasal cannula, calm and comfortable HEENT examination is grossly unremarkable. Mucous membranes are moist. No oral lesions. Neck supple. Full range of motion. No adenopathy thyromegaly or neck vein distention. Cardiovascular examination reveals an irregular rhythm and rate. S1-S2 normal. No S3 or S4. No discernible murmur noted. Heart sounds are distant. Lungs reveal tattered rhonchi. Diminished breath sounds on the left. No wheezes or crackles. Abdomen soft bowel sounds are heard. No masses or tenderness. Extremities are intact. No cyanosis clubbing or edema. Skin reveals a left elbow with open superficial wound. Neurologic examination the patient is encephalopathic, confused, no significant agitation. He is having waxing and waning mentation. - Labs CBC & Chem 7: 12/15/24 02:59 12/15/24 02:59 Labs: Abnormal Lab Results - Last 24 Hours (Table) 12/14/24 12/14/24 12/14/24 Range/Units 12:01 16:14 19:38 WBC (3.8-10.6) k/uL RBC (4.30-5.90) m/uL Hgb (13.0-17.5) gm/dL Hct (39.0-53.0) % MCHC (31.0-37.0) g/dL RDW (11.5-15.5) % Neutrophils # (1.3-7.7) k/uL Lymphocytes # (1.0-4.8) k/uL ABG pCO2 (35-45) mmHg ABG pO2 (83-108) mmHg ABG HCO3 (21-25) mmol/L ABG Total CO2 (19-24) mmol/L Hemoglobin (13.0-17.5) gm/dL Potassium (3.5-5.1) mmol/L Carbon Dioxide (22-30) mmol/L BUN (9-20) mg/dL Glucose (74-99) mg/dL POC Glucose (mg/dL) 197 H 228 H 392 H (70-110) mg/dL 12/14/24 12/15/24 12/15/24 Range/Units 23:01 02:59 02:59 WBC 12.1 H (3.8-10.6) k/uL RBC 3.86 L (4.30-5.90) m/uL Hgb 11.0 L (13.0-17.5) gm/dL Hct 38.1 L (39.0-53.0) % MCHC 28.9 L (31.0-37.0) g/dL RDW 16.9 H (11.5-15.5) % Neutrophils # 11.0 H (1.3-7.7) k/uL Lymphocytes # 0.2 L (1.0-4.8) k/uL ABG pCO2 (35-45) mmHg ABG pO2 (83-108) mmHg ABG HCO3 (21-25) mmol/L ABG Total CO2 (19-24) mmol/L Hemoglobin (13.0-17.5) gm/dL Potassium 3.3 L (3.5-5.1) mmol/L Carbon Dioxide 33 H (22-30) mmol/L BUN 36 H (9-20) mg/dL Glucose 230 H (74-99) mg/dL POC Glucose (mg/dL) 266 H (70-110) mg/dL 12/15/24 12/15/24 Range/Units 03:43 05:20 WBC (3.8-10.6) k/uL RBC (4.30-5.90) m/uL Hgb (13.0-17.5) gm/dL Hct (39.0-53.0) % MCHC (31.0-37.0) g/dL RDW (11.5-15.5) % Neutrophils # (1.3-7.7) k/uL Lymphocytes # (1.0-4.8) k/uL ABG pCO2 56 H (35-45) mmHg ABG pO2 80 L (83-108) mmHg ABG HCO3 31 H (21-25) mmol/L ABG Total CO2 33 H (19-24) mmol/L Hemoglobin 10.9 L (13.0-17.5) gm/dL Potassium (3.5-5.1) mmol/L Carbon Dioxide (22-30) mmol/L BUN (9-20) mg/dL Glucose (74-99) mg/dL POC Glucose (mg/dL) 236 H (70-110) mg/dL Assessment and Plan Plan: Acute hypoxemic respiratory failure, with bilateral pneumonia requiring intubation mechanical ventilation. The patient was extubated on 11/29/2024. Sputum sample was positive for haemophilus influenza. Most recent chest x-ray was done on 12/03/2024 still showing upper lobe consolidation with. Poor ability to perform pulmonary toileting. Previous echocardiogram from December 2023 had shown a preserved LV function with an ejection fraction of 55 to 60%. There is mild pulmonary hypertension and moderate degree of mitral regurgitation. CAT scan of the chest done on 11/18/2024 showed small bilateral pleural effusion with adjacent atelectasis. No evidence of any tumor progression. Overall respirato ry status remains stable. Repeat chest x-ray from 12/10/2024 shows similar stable diffuse multifocal airspace disease more so in the right upper lobe. Subsequently, the patient oxygenation got worse and the patient developed an acute respiratory acidosis and based on that the patient was transferred to the intensive care unit. The patient was started on diuretics and the patient is producing excellent urine output. The patient currently on IV Lasix. The patient is on Diamox. Respiratory status stable on 2 L of oxygen by nasal cannula and the follow-up blood gases showed improvement in acid-base status. olecranon bursitis, wound culture positive for methicillin-resistant Staphylococcus aureus. The patient was treated with vancomycin Atrial fibrillation with controlled ventricular response, rate is under better control although the patient continues to be tachycardic. The patient remains on a combination of amiodarone and metoprolol Metastatic small cell lung cancer, receiving immunotherapy and most recent CAT scan of the brain and a CAT scan of the chest showed no evidence of any active disease. Presented to [facility] on 04/22/22 with increased confusion and disorientation. CT brain without contrast noted 2 large hypodense lesions in bilateral parietal lobes measuring 4.9 x 3.2 cm on the left and 3.3 x 3.1 cm on the right. Initial CXR showed 2.6 cm mass in left mid lung field. He was started on IV dexamethasone. MRI brain on 04/23/22 noted a left 4.9 x 4.8 x 4 cm left cerberal hemisphere lesion and 4.1 x 4.1 cm right cerebral hemisphere lesion. A left cerebellum lesion measured 1.4 x 1.2 x 0.9 cm along with a potential left cerebellar peduncle lesion measuring 5 mm. Transferred to [facility] where he underwent bilateral parietal crainiotomy on 05/06/22, path + lung primary with mixed small cell and adenocarcinoma histology (TTF-1, synaptophysin, chromogranin positive; CK20 positive in small cell component). PET/CT on 05/24/22 reported posterior lateral SERAFIN lung lesion with SUV 4.79, superior left hilar lymphadenopathy with SUV 4.97, and punctate posterior right lung nodule with SUV 1.12. Uptake was also noted at the costovertebral junction and posterior chest, but unclear if this was malignant in nature. He had SRS at [facility] from 05/30/22-06/07/22 receiving 57 Gy in 8 fractions. Had significant improvement in his vision since SRS. He received 4 cycles of carboplatin and etoposide from 07/05/22-09/08/22. Staging CT scans on 09/19/2022 revealed no evidence of disease progression with partial response. Brain MRI July 2022 with no evidence of disease recurrence.Brain MRI on 07/06/2023 revealed no evidence of intracranial metastases. Repeat brain MRI on 08/28/2023 noted new anterior left temporal lobe lesion measuring 1.4 cm. He received 3 fractions of SRS with 27 Gordon from 09/04/2023 through 09/06/2023. Staging CT scans on 10/23/2023 revealed no evidence of metastatic disease. He was admitted to [facility] on 11/07/2023 with seizure and altered mental status was found to have new right temporal lobe lesion measuring 1.2 cm. Completed 3 fractions of SRS to the temporal lobe lesion in early December 2023. He restarted atezolizumab on 12/27/2023. Staging CT scans on 03/06/2024 and brain MRI on 03/18/2024 revealed no evidence of recurrent or metastatic disease. He was previously noted to have cysts of the liver with no lesions concerning for definitive metastatic disease.He did have hospitalizations in May and June 2024 where brain MRI on 05/17/2024 noted stable intracranial lesions that were treated. CT abdomen/pelvis on 06/13/2024 revealed no evidence of malignancy with stable hepatic cysts. CT chest performed on 08/05/2024 revealed no evidence of metastatic disease. He is s/p 25 cycles of maintenance tecentriq. CAT scan of the chest done on 11/18/2024 shows no evidence of any residual tumor or tumor progression. Ongoing fluctuation in mental status/delirium,, lethargic, weakness and episodes of confusion. The patient also demonstrate generalized weakness. Consider occult SURGICAL ENDOSCOPIST metastases Hypertension. Elevated troponins, possibly secondary to supply/demand mismatch. Altered mental status, under investigation, brain CT did not show any acute intracranial bleeding or mass effect. The mental status continues to wax and wane. History of seizure disorder. The patient is currently on Keppra. History of polysubstance abuse. Plan: Keep the patient intensive care unit Continue Lasix 40 mg IV every 12 hours 20 mg IV every 12 hours and this will be continued for another 24 hours Monitor fluid balance and electrolytes and serum bicarb Monitor mental status as the patient received a much less encephalopathic although patient's mental status continues to wax and wane. Neurology has been consulted and the patient is going to have a follow-up EEG and MRI of the brain Chest x-ray is stable compared to yesterday Repeat chest x-ray in the morning was noted and there is improvement in acid- base status Continue bronchodilators Discontinued IV Solu-Medrol start the patient on prednisone burst taper Management of atrial fibrillation the patient is currently on amiodarone 200 mg p.o., p.o. twice daily and metoprolol 100 mg p.o. daily. No anticoagulants Oncology follow-up ID follow-up Monitor mental status Will continue to follow Prognosis remains extremely poor based on above-mentioned comorbidities. The patient can be downgraded Evaluation was done 35 minutes. Time with Patient: Greater than 30
--- NOTE | 2024-12-15 15:35 | P.PN ---
Subjective Progress Note Date: 12/15/24 Principal diagnosis: Reason for follow-up is left elbow septic olecranon bursitis/haemophilus pneumonia Patient is a 59-year-old male with a past medical history significant for hypertension seizure disorder atrial fibrillation he did have a metastatic lung cancer has been brought to the hospital for worsening swelling to the left elbow with a culture positive for MRSA concerning for septic olecranon bursitis. On today's evaluation that is 12/15/2024, Patient is afebrile patient is currently on 5 L nasal oxygen seem to be breathing comfortably he is sleepy but arousable not a very good historian no vomiting diarrhea and the change reported by the sitter at the bedside. Patient white count is 12.1, creatinine 0.80 chest x-ray repeated similar patchy airspace opacity right upper lung concerning for pneumonia Objective - Vital Signs Vital signs: Vital Signs Temp 97.7 F 12/15/24 08:00 Pulse 80 12/15/24 15:00 Resp 14 12/15/24 15:00 BP 108/68 12/15/24 15:00 Pulse Ox 93 L 12/15/24 15:00 FiO2 50 12/14/24 08:00 Intake & Output 12/14/24 12/15/24 12/15/24 18:59 06:59 18:59 Intake Total 1675 260 440 Output Total 2150 1999 1050 Balance -327 -9967 -072 Weight 77.2 kg Intake: IV 285 260 80 0.9 Normal Saline 185 260 80 Potassium Chloride 10 meq 100 In Water For Injection 1 100ml.bag @ 100 mls/hr IVPB Q1HR [facility] Rx#: [id number] Oral 1390 360 Output: Urine 0 1999 105 Other: Voiding Method External Catheter External Catheter External Catheter ABP, PAP, CO, CI - Last Documented Arterial Blood Pressure 131/85 - Exam GENERAL DESCRIPTION: Middle-age male lying in bed in no distress RESPIRATORY SYSTEM: Unlabored breathing , decreased breath sounds at bases HEART: S1 S2 regular rate and rhythm , ABDOMEN: Soft , no tenderness EXTREMITIES: No edema feet - Labs CBC & Chem 7: 12/15/24 02:59 12/15/24 02:59 Labs: Abnormal Lab Results - Last 24 Hours (Table) 12/14/24 12/14/24 12/14/24 Range/Units 16:14 19:38 23:01 WBC (3.8-10.6) k/uL RBC (4.30-5.90) m/uL Hgb (13.0-17.5) gm/dL Hct (39.0-53.0) % MCHC (31.0-37.0) g/dL RDW (11.5-15.5) % Neutrophils # (1.3-7.7) k/uL Lymphocytes # (1.0-4.8) k/uL ABG pCO2 (35-45) mmHg ABG pO2 (83-108) mmHg ABG HCO3 (21-25) mmol/L ABG Total CO2 (19-24) mmol/L Hemoglobin (13.0-17.5) gm/dL Potassium (3.5-5.1) mmol/L Carbon Dioxide (22-30) mmol/L BUN (9-20) mg/dL Glucose (74-99) mg/dL POC Glucose (mg/dL) 228 H 392 H 266 H (70-110) mg/dL 12/15/24 12/15/24 12/15/24 Range/Units 02:59 02:59 03:43 WBC 12.1 H (3.8-10.6) k/uL RBC 3.86 L (4.30-5.90) m/uL Hgb 11.0 L (13.0-17.5) gm/dL Hct 38.1 L (39.0-53.0) % MCHC 28.9 L (31.0-37.0) g/dL RDW 16.9 H (11.5-15.5) % Neutrophils # 11.0 H (1.3-7.7) k/uL Lymphocytes # 0.2 L (1.0-4.8) k/uL ABG pCO2 56 H (35-45) mmHg ABG pO2 80 L (83-108) mmHg ABG HCO3 31 H (21-25) mmol/L ABG Total CO2 33 H (19-24) mmol/L Hemoglobin 10.9 L (13.0-17.5) gm/dL Potassium 3.3 L (3.5-5.1) mmol/L Carbon Dioxide 33 H (22-30) mmol/L BUN 36 H (9-20) mg/dL Glucose 230 H (74-99) mg/dL POC Glucose (mg/dL) (70-110) mg/dL 12/15/24 12/15/24 Range/Units 05:20 11:08 WBC (3.8-10.6) k/uL RBC (4.30-5.90) m/uL Hgb (13.0-17.5) gm/dL Hct (39.0-53.0) % MCHC (31.0-37.0) g/dL RDW (11.5-15.5) % Neutrophils # (1.3-7.7) k/uL Lymphocytes # (1.0-4.8) k/uL ABG pCO2 (35-45) mmHg ABG pO2 (83-108) mmHg ABG HCO3 (21-25) mmol/L ABG Total CO2 (19-24) mmol/L Hemoglobin (13.0-17.5) gm/dL Potassium (3.5-5.1) mmol/L Carbon Dioxide (22-30) mmol/L BUN (9-20) mg/dL Glucose (74-99) mg/dL POC Glucose (mg/dL) 236 H 230 H (70-110) mg/dL Assessment and Plan (1) Septic olecranon bursitis of left elbow Current Visit: Yes Status: Acute Code(s): M71.122 - OTHER INFECTIVE BURSITIS, LEFT ELBOW SNOMED Code(s): 7498508043625813 (2) Allergy to cephalosporin Current Visit: No Status: Acute Code(s): Z88.1 - ALLERGY STATUS TO OTHER ANTIBIOTIC AGENTS SNOMED Code(s): 646193627 (3) MRSA (methicillin resistant Staphylococcus aureus) infection Current Visit: Yes Status: Acute Code(s): A49.02 - METHICILLIN RESIS STAPH INFECTION, UNSP SITE SNOMED Code(s): 008556736 (4) Influenza A Current Visit: Yes Status: Acute Code(s): J10.1 - FLU DUE TO OTH IDENT INFLUENZA VIRUS W OTH RESP MANIFEST SNOMED Code(s): 803726212 (5) Pneumonia Current Visit: No Status: Acute Code(s): J18.9 - PNEUMONIA, UNSPECIFIED ORGANISM SNOMED Code(s): 942810931 Plan: 1patient being admitted to the hospital for left elbow pain swelling redness he did have a wound with a culture positive for MRSA in the outpatient setting now with concern for left elbow septic olecranon bursitis for the patient received adequate IV vancomycin and did have healing of his left elbow ulcer/olecranon bursitis. 2patient with influenza A for which the patient has completed 5-day course of Tamiflu 3patient is afebrile still with evidence of right upper lobe pneumonia possible recurrent aspiration responded to Zosyn, clinically to continue repeat sputum and monitor clinical course closely Dictation was produced using [employer] dictation software. please excuse any grammatical, word or spelling errors. Time with Patient: Less than 30
[2024-12-15 16:36] LABS: Glucose,Whole Blood 235 mg/dL (70-110)
[2024-12-15 20:30] LABS: Glucose,Whole Blood 247 mg/dL (70-110)
--- NOTE | 2024-12-15 21:23 | PN ---
PROGRESS NOTE DATE OF SERVICE: 12/14/2024 CHIEF COMPLAINT: Lethargy and mental status changes. HISTORY OF PRESENT ILLNESS: This gentleman is awake, but still very lethargic and not appropriately responsive. PHYSICAL EXAMINATION: CHEST: Clear bilaterally. CARDIAC EXAM: Unchanged. ABDOMEN: Soft and nontender. IMPRESSION: 1. Mental status changes. 2. Status post sepsis. 3. Carcinoma of the lung with metastasis. PLAN: Continue to follow in ICU with a poor prognosis at this time. MMODL / IJN: [id number] /
--- NOTE | 2024-12-15 21:32 | PN ---
PROGRESS NOTE DATE OF SERVICE: 12/15/2024 CHIEF COMPLAINT: Mental status changes. HISTORY OF PRESENT ILLNESS: This gentleman is about the same. He is still awake, but semi-alert and very lethargic and confused. PHYSICAL EXAMINATION: CHEST: Breath sounds are heard bilaterally. CARDIAC EXAM: Unchanged. ABDOMEN: Soft and nontender. EXTREMITIES: Same. IMPRESSION: 1. Mental status changes. 2. History of carcinoma of the lung with metastasis. 3. History of sepsis. PLAN: Continue his current management. MMODL / IJN: [id number] /
[2024-12-16 05:44] LABS: Glucose,Whole Blood 188 mg/dL (70-110)
[2024-12-16] MEDS: predniSONE 20 MG TAB PO SCH (10:46)
[2024-12-16 11:45] LABS: Glucose,Whole Blood 155 mg/dL (70-110)
[2024-12-16] MEDS: POTASSIUM CHLORIDE ER 20 MEQ TAB.ER PO SCH (12:16)
--- NOTE | 2024-12-16 12:29 | EEG ---
ELECTROENCEPHALOGRAM REPORT PREAMBLE: This is a 59-year-old male with altered mental status, and has history of seizures. CURRENT MEDICATIONS: 1. Keppra. 2. Zosyn. 3. Diamox. 4. Toprol. EEG FINDINGS: This is a 21-channel digital EEG recorded with video component, utilizing 10/20 international system with referential and bipolar montage. Background consists of poorly developed and regulated, predominantly 2 to Hz delta slowing, intermixed with some 4 to 5 Hz theta activity seen in bihemispheric region. Background does not seem to be reactive to eye opening or closing. Different stages of sleep were not seen. No focal or generalized epileptiform activity was seen. IMPRESSION: This is an abnormal EEG due to background slowing of [id number]-sv-[id number] degree. This is suggestive of generalized cerebral dysfunction as can be seen with toxic metabolic encephalopathy or related to diffuse structural brain abnormality. Clinical correlation is recommended. No epileptiform activity was seen. MMODL / IJN: [id number] /
--- NOTE | 2024-12-16 14:13 | P.PN ---
Subjective Progress Note Date: 12/16/24 Principal diagnosis: SCLC, AMS Pt cont to be in ICU, sent because of worsening resp status. He was on bipap, has been on NC and doing well. He was easily aroused, he was pleasant, he cont to have a sitter because he can be aggressive and confused at times. Objective - Vital Signs Vital signs: Vital Signs Temp 98.7 F 12/16/24 04:00 Pulse 82 12/16/24 12:00 Resp 18 12/16/24 12:00 BP 130/95 12/16/24 12:00 Pulse Ox 97 12/16/24 12:00 FiO2 50 12/14/24 08:00 Intake & Output 12/15/24 12/16/24 12/16/24 18:59 06:59 18:59 Intake Total 440 Output Total 4618 927 5568 Balance -610 -600 -1000 Weight 69.9 kg Intake: IV 80 0.9 Normal Saline 80 Oral 360 Output: Urine 5648 167 3901 Other: Voiding Method External Catheter Diaper Diaper External Catheter External Catheter # Voids 1 ABP, PAP, CO, CI - Last Documented Arterial Blood Pressure 131/85 - Constitutional General appearance: Present: cooperative, no acute distress, thin - EENT Eyes: Present: anicteric sclerae ENT: Present: hearing grossly normal - Respiratory Details: Respirations unlabored at rest - Cardiovascular Rhythm: regular - Peripheral edema leg Peripheral Edema: bilateral: None - Integumentary Integumentary Comment(s): Bilateral lower extremity skin lesions are healing over well. - Musculoskeletal Musculoskeletal Comment(s): Left olecranon bursitis much improved, less swelling, not tender to the touch - Psychiatric Psychiatric Comment(s): Patient was arousable to voice, pleasant during our interaction, oriented to self and place - Labs CBC & Chem 7: 12/15/24 02:59 12/15/24 02:59 Labs: Abnormal Lab Results - Last 24 Hours (Table) 12/15/24 12/15/24 12/16/24 Range/Units 16:34 20:29 05:42 POC Glucose (mg/dL) 235 H 247 H 188 H (70-110) mg/dL 12/16/24 Range/Units 11:44 POC Glucose (mg/dL) 155 H (70-110) mg/dL Assessment and Plan (1) Altered mental status Current Visit: Yes Status: Resolved Priority: High Code(s): R41.82 - ALT ERED MENTAL STATUS, UNSPECIFIED SNOMED Code(s): 133732373 (2) Small cell lung cancer Current Visit: Yes Status: Acute Priority: Medium Code(s): C34.90 - MALIGNANT NEOPLASM OF UNSP PART OF UNSP BRONCHUS OR LUNG SNOMED Code(s): 781972169 Plan: Altered mental status -Patient has had similar episodes in the past, usually associated with seizure activity or disease progression in the brain. CT of the head without contrast this visit did not report any acute or new findings, no reports of seizure activity. -Sputum cultures positive for haemophilus influenza. Pulmonary following. -Cont treatment for skin infection and brusitis, as prescribed by Infectious disease. -Pt mental status has fluctuated this admit. He is in ICU currently for resp decline, he was on bipap, doing well now on O2 NC. He cont to have staff at bedside as he gets confused at times and is at risk for falling and hurting himself. -MRI brain was ordered, cancelled multiple times, likely due to pt not following commands. If pt cont to improve, can be done outpt. Small cell lung cancer -Diagnosis and treatment as stated in consult -Patient has had disease recurrence, all within the brain. Treated with radiati on -Patient has been on maintenance immunotherapy treatment for almost 2 years, no progression of disease/new disease -Hold treatment for now, until acute condition treated and resolved. -Highly suspect patient is going to need rehabilitation especially after 34 days inpatient. Treatment will be on hold until patient is discharged from rehabilitation. He will need to be assessed by the Medical Oncologist prior to resuming any treatment -CT chest with contrast done, no new disease, small lilly pl effusions. -He will cont to have treatment f/u imaging as directed by Med Onc and Rad Onc Doctor attests: I performed a history and physical examination of this patient, developed impression and plan of care. Discussed with dictator. I agree with dictators note, documented as a scribe.
--- NOTE | 2024-12-16 14:48 | P.PN ---
Subjective Progress Note Date: 12/16/24 Principal diagnosis: Acute hypoxic respiratory failure secondary to congestive heart failure and possible atypical pneumonia On 12/13/2024, the patient is still having on and off episodes of confusion. No agitation. Sitter at the bedside. Meanwhile, respiratory status is stable. The patient is afebrile. The patient's pulse ox is 93% centimeters of O2 nasal cannula. Chest x-ray findings are essentially stable compared to yesterday. Continues to diurese with IV Lasix. The patient is currently on IV Lasix and fluid balance -3.1 L over the past 24 hours. Patient is also on Diamox. Blood work from today shows a white cell count of 9 with a hemoglobin 10.4 and platel et count of 315. The blood gas from today showed a pH of 7.34 with a pCO2 17 pO2 of 66. Sodium is at 134, potassium is at 3.2, bicarb is at 39, BUN 39 and a creatinine of 1.03. No hypotension. No agitation. Remains on IV Zosyn. Remains on amiodarone 2 mg p.o. twice a day and the patient is also on metoprolol 100 mg p.o. daily. Remains on IV Solu-Medrol. Remains on DuoNeb nebulizers [id number]. Remains on IV Lasix. Remains on IV Diamox. On 12/14/2024, the patient is being seen for a follow-up. Waxing and waning mentation. Based on that, neurology evaluation will be also requested. Noted the patient's most recent CAT scan of the brain showed no acute abnormalities and there was evidence of previously treated WASHING MACHINE OPERATOR lesions and the patient is known to have previous WASHING MACHINE OPERATOR metastases. Meanwhile, respiratory status is stable. The patient has been weaned down and the patient's current FiO2 is at 2 L nasal cannula with pulse ox of 95%. A follow-up blood gas was done and showed a pH of 7.31 with a pCO2 of 67 and pO2 of 77. The patient remains on IV Lasix. The patient remains on Diamox. Fluid balance over the past 24 hours has been -3.4 L. Meanwhile, the serum bicarb is currently 31. Sodium levels at 137, potassium level of 3.9. The white cell count 11.7 with a hemoglobin of 10.7. Chest x-ray findings are essentially stable and the patient continues to have stable patchy airspace disease specially in the right upper lobe. No active respiratory difficulties. Some limited cough and congestion. Unable to bring up sputum. Remains on IV Zosyn. On 12/15/2024, the patient's mental status continues to wax and wane. This morning, he is found to be awake and alert and communicating. No significant respiratory distress. He is currently on 2 L of oxygen by nasal cannula. He was diuresed adequately over the past 24 to 48 hours and the fluid balance is - 2.1 L over the past 24 hours. Follow-up blood gas from today showed a pH of 7.36 with pCO2 56 and pO2 of 80 and the patient has a stable chest x-ray. The serum bicarb is currently at 33 with a sodium level of 137 and a potassium level of 3.3. The white cell count of 12.1 with a hemoglobin of 11. No other issues otherwise. The patient was consulted by neurology and he is going to have a follow-up EEG and MRI of the brain. Patient was seen today on 12/16/2024, patient remains in the ICU, remains ag itated at times requiring Haldol, presently on 3 L nasal cannula, O2 sats is 97%. Chest x-ray continues show patchy airspace opacities mostly in the right upper lobe patient received significant amount of antibiotics over the last 3 weeks while in the ICU. Sputum culture on 11/26 was positive for haemophilus influenza A and this was addressed and treated. WBC count today is 12.1 hemoglobin is 11.1, ABG yesterday showed a pO2 of 80 pCO2 56 pH of 7.36 Objective - Vital Signs Vital signs: Vital Signs Temp 98.7 F 12/16/24 04:00 Pulse 82 12/16/24 12:00 Resp 18 12/16/24 12:00 BP 130/95 12/16/24 12:00 Pulse Ox 97 12/16/24 12:00 FiO2 50 12/14/24 08:00 Intake & Output 12/15/24 12/16/24 12/16/24 18:59 06:59 18:59 Intake Total 440 Output Total 4118 094 1481 Balance -610 -600 -1000 Weight 69.9 kg Intake: IV 80 0.9 Normal Saline 80 Oral 360 Output: Urine 1264 723 0065 Other: Voiding Method External Catheter Diaper Diaper External Catheter External Catheter # Voids 1 ABP, PAP, CO, CI - Last Documented Arterial Blood Pressure 131/85 - Exam Physical exam revealed 59-year-old white male, on nasal cannula, gets agitated easily but not in distress Head: Atraumatic, normocephalic HEENT Examination is grossly unremarkable. Mucous membranes are moist. No oral lesions. Old tracheostomy scar is noted Neck supple. Full range of motion. No adenopathy thyromegaly or neck vein distention. Cardiovascular examination distant S1-S2, no S3 gallop, no murmur.. Lungs: Diminished breath sound bilaterally some rhonchi on forced expiratory maneuver Abdomen soft bowel sounds are heard. No masses or tenderness. Extremities superficial ulcerations, muscle wasting, good pulses bilaterally. Skin: Multiple superficial ulcerations noted in lower extremities, over the toes and patient does have right foot cool to touch, palpable pulses. Neurologic gets agitated easily otherwise no gross focal deficit Psychiatric: Normal mood affect and normal mental status today. - Labs CBC & Chem 7: 12/15/24 02:59 12/15/24 02:59 Labs: Abnormal Lab Results - Last 24 Hours (Table) 12/15/24 12/15/24 12/16/24 Range/Units 16:34 20:29 05:42 POC Glucose (mg/dL) 235 H 247 H 188 H (70-110) mg/dL 12/16/24 Range/Units 11:44 POC Glucose (mg/dL) 155 H (70-110) mg/dL Assessment and Plan Assessment: Impression: Acute on chronic hypoxic and hypercapnic respiratory failure, requiring intubati on and mechanical ventilation shortly after he received Ativan for agitation on the medical floor. Extubated on 11/29/2024 remains marginal and will continue to monitor in the ICU. Haemophilus influenza pneumonia, in the setting of acute influenza A infection/superimposed bacterial pneumonia Acute influenza A infection Atrial fibrillation with controlled ventricular response. The patient remains on a combination of amiodarone and metoprolol Metastatic small cell lung cancer, Chronic metabolic encephalopathy, multifactorial mostly with chronic hypercapnia Hypertension. Severe hypokalemia, improved Elevated troponins, possibly secondary to supply/demand mismatch. Altered mental status, most likely secondary to metabolic encephalopathy History of seizure disorder. Metastatic small cell lung cancer, receiving immunotherapy and most recent CAT scan of the brain and a CAT scan of the chest showed no evidence of any active disease. Presented to [facility] on 04/22/22 with increased confusion and disorientation. CT brain without contrast noted 2 large hypodense lesions in bilateral parietal lobes measuring 4.9 x 3.2 cm on the left and 3.3 x 3.1 cm on the right. Initial CXR showed 2.6 cm mass in left mid lung field. He was started on IV dexamethasone. MRI brain on 04/23/22 noted a left 4.9 x 4.8 x 4 cm left cerberal hemisphere lesion and 4.1 x 4.1 cm right cerebral hemisphere lesion. A left cerebellum lesion measured 1.4 x 1.2 x 0.9 cm along with a potential left cerebellar peduncle lesion measuring 5 mm. Transferred to [facility] where he underwent bilateral parietal crainiotomy on 05/06/22, path + lung primary with mixed small cell and adenocarcinoma histology (TTF-1, synaptophysin, chromogranin positive; CK20 positive in small cell component). PET/CT on 05/24/22 reported posterior lateral SERAFIN lung lesion with SUV 4.79, superior left hilar lymphadenopathy with SUV 4.97, and punctate posterior right lung nodule with SUV 1.12. Uptake was also noted at the costovertebral junction and posterior chest, but unclear if this was malignant in nature. He had SRS at [facility] from 05/30/22-06/07/22 receiving 57 Gy in 8 fractions. Had significant improvement in his vision since SRS. He received 4 cycles of carboplatin and etoposide from 07/05/22-09/08/22. Staging CT scans on 09/19/2022 revealed no evidence of disease progression with partial response. Brain MRI July 2022 with no evidence of disease recurrence.Brain MRI on 07/06/2023 revealed no nisa dence of intracranial metastases. Repeat brain MRI on 08/28/2023 noted new anterior left temporal lobe lesion measuring 1.4 cm. He received 3 fractions of SRS with 27 Gordon from 09/04/2023 through 09/06/2023. Staging CT scans on 10/23/2023 revealed no evidence of metastatic disease. He was admitted to [facility] on 11/07/2023 with seizure and altered mental status was found to have new right temporal lobe lesion measuring 1.2 cm. Completed 3 fractions of SRS to the temporal lobe lesion in early December 2023. He restarted atezolizumab on 12/27/2023. Staging CT scans on 03/06/2024 and brain MRI on 03/18/2024 revealed no evidence of recurrent or metastatic disease. He was previously noted to have cysts of the liver with no lesions concerning for definitive metastatic disease.He did have hospitalizations in May and June 2024 where brain MRI on 05/17/2024 noted stable intracranial lesions that were treated. CT abdomen/pelvis on 06/13/2024 revealed no evidence of malignancy with stable h epatic cysts. CT chest performed on 08/05/2024 revealed no evidence of metastatic disease. He is s/p 25 cycles of maintenance tecentriq. CAT scan of the chest done on 11/18/2024 shows no evidence of any residual tumor or tumor progression. Recommendation: Continue present supportive care measures GI and DVT prophylaxis Continue bronchodilators Continue antibiotics/Zosyn Continue Tamiflu Continue systemic steroids, dose has been cut down and will continue to cut down further Continue metoprolol and amiodarone Prognosis remains guarded Consider placement in ECF His overall prognosis remains extremely poor and guarded Will clear the patient for discharge to ECF if cleared by other consultants Time with Patient: Less than 30
[2024-12-16 16:20] LABS: Glucose,Whole Blood 237 mg/dL (70-110)
--- NOTE | 2024-12-16 17:01 | P.PN ---
Subjective Progress Note Date: 12/16/24 Principal diagnosis: Reason for follow-up is left elbow septic olecranon bursitis/haemophilus pneumonia Patient is a 59-year-old male with a past medical history significant for hypertension seizure disorder atrial fibrillation he did have a metastatic lung cancer has been brought to the hospital for worsening swelling to the left elbow with a culture positive for MRSA concerning for septic olecranon bursitis. On today's evaluation that is 12/16/2024, patient has been afebrile, patient is breathing comfortably and is currently on 3 L nasal oxygen patient remains to be sleepy lethargic not a good historian no other changes reported by sitter at the bedside. No new lab has been repeated today Objective - Vital Signs Vital signs: Vital Signs Temp 98.7 F 12/16/24 04:00 Pulse 82 12/16/24 12:00 Resp 18 12/16/24 12:00 BP 130/95 12/16/24 12:00 Pulse Ox 97 12/16/24 12:00 FiO2 50 12/14/24 08:00 Intake & Output 12/15/24 12/16/24 12/16/24 18:59 06:59 18:59 Intake Total 440 Output Total 5418 785 9703 Balance -610 -600 -1000 Weight 69.9 kg Intake: IV 80 0.9 Normal Saline 80 Oral 360 Output: Urine 4322 488 6898 Other: Voiding Method External Catheter Diaper Diaper External Catheter External Catheter # Voids 1 ABP, PAP, CO, CI - Last Documented Arterial Blood Pressure 131/85 - Exam GENERAL DESCRIPTION: Middle-age male lying in bed in no distress RESPIRATORY SYSTEM: Unlabored breathing , decreased breath sounds at bases HEART: S1 S2 regular rate and rhythm , ABDOMEN: Soft , no tenderness EXTREMITIES: No edema feet - Labs CBC & Chem 7: 12/15/24 02:59 12/15/24 02:59 Labs: Abnormal Lab Results - Last 24 Hours (Table) 12/15/24 12/15/24 12/16/24 Range/Units 16:34 20:29 05:42 POC Glucose (mg/dL) 235 H 247 H 188 H (70-110) mg/dL 12/16/24 Range/Units 11:44 POC Glucose (mg/dL) 155 H (70-110) mg/dL Assessment and Plan (1) Septic olecranon bursitis of left elbow Current Visit: Yes Status: Acute Code(s): M71.122 - OTHER INFECTIVE BURSITIS, LEFT ELBOW SNOMED Code(s): 4212603513125317 (2) Allergy to cephalosporin Current Visit: No Status: Acute Code(s): Z88.1 - ALLERGY STATUS TO OTHER ANTIBIOTIC AGENTS SNOMED Code(s): 103035439 (3) MRSA (methicillin resistant Staphylococcus aureus) infection Current Visit: Yes Status: Acute Code(s): A49.02 - METHICILLIN RESIS STAPH INFECTION, UNSP SITE SNOMED Code(s): 440398594 (4) Influenza A Current Visit: Yes Status: Acute Code(s): J10.1 - FLU DUE TO OTH IDENT INFLUENZA VIRUS W OTH RESP MANIFEST SNOMED Code(s): 245350780 (5) Pneumonia Current Visit: No Status: Acute Code(s): J18.9 - PNEUMONIA, UNSPECIFIED ORGANISM SNOMED Code(s): 962276157 Plan: 1patient being admitted to the hospital for left elbow pain swelling redness he did have a wound with a culture positive for MRSA in the outpatient setting now with concern for left elbow septic olecranon bursitis for the patient received adequate IV vancomycin and did have healing of his left elbow ulcer/olecranon bursitis. 2patient with influenza A for which the patient has completed 5-day course of Tamiflu 3patient is afebrile still with evidence of right upper lobe pneumonia possible recurrent aspiration pneumonia 4patient is covered with the Zosyn to continue keeping in mind overall progress prognosis hospice may be a better option Dictation was produced using itsDapperation software. please excuse any grammatical, word or spelling errors. Time with Patient: Less than 30
--- NOTE | 2024-12-16 19:00 | P.PN ---
Subjective Progress Note Date: 12/16/24 Patient was initially seen by Dr. Landis. Please refer to her note for details. Patient has known history of lung cancer with brain metastasis. Patient has history of seizures as well. Patient has been in the hospital since 11/12/2024. Per sitter, patient has been really "nasty", all day, trying to push away the oxygen mask for treatment. He is hallucinating, bringing his fingers to the mouth like smoking. Sometimes he is trying to get something from air. No seizures. The sitter also reported the patient's sister was present, who mentioned that he has always been "mean". Objective - Vital Signs Vital signs: Vital Signs Temp 96.8 F L 12/16/24 16:00 Pulse 82 12/16/24 16:00 Resp 16 12/16/24 16:00 BP 99/70 12/16/24 16:00 Pulse Ox 96 12/16/24 16:00 FiO2 50 12/14/24 08:00 Intake & Output 12/15/24 12/16/24 12/16/24 18:59 06:59 18:59 Intake Total 440 Output Total 0239 537 3077 Balance -610 -600 -1800 Weight 69.9 kg Intake: IV 80 0.9 Normal Saline 80 Oral 360 Output: Urine 7494 280 1922 Other: Voiding Method External Catheter Diaper Diaper External Catheter External Catheter # Voids 1 ABP, PAP, CO, CI - Last Documented Arterial Blood Pressure 131/85 - Exam Examination is limited because patient did not cooperate. I asked him to squeeze the hand, he yelled, "no, go away". Patient's face is symmetric. He moves his extremities well. Did not cooperate with the lower extremities. He has some bruises, appears malnutrition. - Labs CBC & Chem 7: 12/15/24 02:59 12/15/24 02:59 Labs: Abnormal Lab Results - Last 24 Hours (Table) 12/15/24 12/16/24 12/16/24 Range/Units 20:29 05:42 11:44 POC Glucose (mg/dL) 247 H 188 H 155 H (70-110) mg/dL 12/16/24 Range/Units 16:18 POC Glucose (mg/dL) 237 H (70-110) mg/dL Assessment and Plan Assessment: 1. Toxic metabolic encephalopathy: Multifactorial-secondary to hypercapnia, pneumonia, brain mets, prolonged hospitalization 2. Lung cancer with brain metastases 3. Reported history of seizures, likely secondary to brain mets Plan: 1. Await MRI of the brain to evaluate possible increase in edema, surrounding brain metastases 2. EEG was abnormal due to background slowing of moderate to severe degree. This is suggestive of generalized cerebral dysfunction as can be seen with toxic metabolic encephalopathy or related to diffuse structural brain abnormality. Clinical correlation is recommended. No epileptiform activity was seen. 3. Attempt to keep appropriate sleep/wake cycle 4. Will check other labs for causes of neuropathy-TSH, B12, folate, vitamin D level, RPR. 5. Continue Keppra 1000 mg twice daily.
[2024-12-16 19:20] LABS: Potassium 3.6 mmol/L (3.5-5.1)
[2024-12-16 20:25] LABS: T4, Free (Free Thyroxine) 1.35 ng/dL (0.78-2.19)
[2024-12-16 22:17] LABS: Glucose,Whole Blood 386 mg/dL (70-110)
--- NOTE | 2024-12-17 00:55 | PN ---
PROGRESS NOTE DATE OF SERVICE: 12/16/2024 CHIEF COMPLAINT: Acute respiratory failure. HISTORY OF PRESENT ILLNESS: This gentleman is just about the same. He remains a little bit lethargic and confused. PHYSICAL EXAMINATION: CHEST: Breath sounds are heard bilaterally. CARDIAC EXAM: Normal, except for his arrhythmia. ABDOMEN: Soft and nontender. IMPRESSION: 1. History of pneumonitis and sepsis. 2. Delirium. 3. History of carcinoma of the lung. PLAN: Continue with management in the intensive care unit until he is more stable and alert. MMODL / IJN: [id number] /
[2024-12-17 05:14] LABS: Glucose,Whole Blood 149 mg/dL (70-110)
[2024-12-17 06:32] LABS: African American GFR (CKD) >90 (>60 ml/min/1.73 sqM); Anion Gap 4 mmol/L; Blood Urea Nitrogen 33 mg/dL (9-20); Calcium 9.1 mg/dL (8.4-10.2); Carbon Dioxide 31 mmol/L (22-30); Chloride 104 mmol/L (98-107); Glucose 131 mg/dL (74-99); Non-African American GFR(CKD) >90 (>60 ml/min/1.73 sqM); Potassium 3.1 mmol/L (3.5-5.1); Sodium 139 mmol/L (137-145)
[2024-12-17 06:43] LABS: Anisocytosis Slight; Basophils % (A) 0 %; Eosinophils # (A) 0.1 k/uL (0-0.7); Eosinophils % (A) 1 %; HCT 42.8 % (39.0-53.0); HGB 12.2 gm/dL (13.0-17.5); Hypochromasia Marked; Lymphocytes # (A) 0.7 k/uL (1.0-4.8); Lymphocytes % (A) 5 %; MCH 28.3 pg (25.0-35.0); MCHC 28.6 g/dL (31.0-37.0); MCV 98.9 fL (80.0-100.0); Macrocytosis Slight; Mean Platelet Volume 8.7; Monocytes # (A) 1.3 k/uL (0-1.0); Monocytes % (A) 10 %; Neutrophils # (A) 10.4 k/uL (1.3-7.7); Neutrophils % (A) 82 %; Platelet Count 336 k/uL (150-450); RBC 4.32 m/uL (4.30-5.90); RDW 16.9 % (11.5-15.5); WBC 12.8 k/uL (3.8-10.6)
[2024-12-17] MEDS: POTASSIUM CHLORIDE ER 20 MEQ TAB.ER PO SCH ×2 (06:49→15:25)
[2024-12-17 12:55] LABS: Glucose,Whole Blood 250 mg/dL (70-110)
--- NOTE | 2024-12-17 13:24 | MR ---
EXAMINATION TYPE: MR brain wo/w con DATE OF EXAM: 12/17/2024 1:02 PM COMPARISON: 05/15/2024 prior MRI brain images were not in PACS because of downtime during the prior wa an. CLINICAL INDICATION: Male, 59 years old with history of brain mets, mental stauyus change; PHH, Brain Mets, Mental Status Change TECHNIQUE: Multi planar, multi sequence imaging was performed through the brain including: T1, T2, In version recovery, susceptibility weighted imaging and gradient echo imaging and Diffusion weighted im aging. The patient was then given intravenous contrast and multi planar, T1 fat-saturation images wer e obtained. IV Contrast: 7ml mL Gadobutrol FINDINGS: There our bilateral parietal lesions again demonstrated with certainty vasogenic edema. The re may be a thin discontinuous areas of restricted lesions. Surrounding vasogenic edema is present. S cattered nonspecific white matter changes are present. Overall the lesion in the left parietal region measures up to 24 mm with less enhancement compared to prior on 11/08/2023 which is not significantly changed otherwise. The right parietal lesion demonstrates decreased from 11/08/2023 peripheral enhancem ent measuring 16 mm previously 26 mm. No evidence for restricted diffusion to suggest acute/subacute CVA. Postcontrast imaging demonstrates no new lesions. The vasculature is patent. The bone marrow signal is within normal limits. Paranasal sinuses and mastoid air cells: Scattered mastoid air cell high T2 signal in the left mastoi d air cells. Visualized orbits: Orbital contents are intact. IMPRESSION: Immediate prior images were obtained during PACS downtime. 1. No evidence for acute/subacute CVA. 2. Bilateral parietal lesions which have decreased in size from 11/08/2023. Evaluation to 05/15/2024 is unable to be performed due to images during downtime. No new lesions identified from 11/08/2023. 3. Left mastoid air cell effusion. 4. Nonspecific white matter changes. [facility], , 12/17/2024 1:21 PM
--- NOTE | 2024-12-17 14:30 | P.PN ---
Subjective Progress Note Date: 12/17/24 Principal diagnosis: Acute hypoxic respiratory failure secondary to congestive heart failure and possible atypical pneumonia On 12/13/2024, the patient is still having on and off episodes of confusion. No agitation. Sitter at the bedside. Meanwhile, respiratory status is stable. The patient is afebrile. The patient's pulse ox is 93% centimeters of O2 nasal cannula. Chest x-ray findings are essentially stable compared to yesterday. Continues to diurese with IV Lasix. The patient is currently on IV Lasix and fluid balance -3.1 L over the past 24 hours. Patient is also on Diamox. Blood work from today shows a white cell count of 9 with a hemoglobin 10.4 and platel et count of 315. The blood gas from today showed a pH of 7.34 with a pCO2 17 pO2 of 66. Sodium is at 134, potassium is at 3.2, bicarb is at 39, BUN 39 and a creatinine of 1.03. No hypotension. No agitation. Remains on IV Zosyn. Remains on amiodarone 2 mg p.o. twice a day and the patient is also on metoprolol 100 mg p.o. daily. Remains on IV Solu-Medrol. Remains on DuoNeb nebulizers [id number]. Remains on IV Lasix. Remains on IV Diamox. On 12/14/2024, the patient is being seen for a follow-up. Waxing and waning mentation. Based on that, neurology evaluation will be also requested. Noted the patient's most recent CAT scan of the brain showed no acute abnormalities and there was evidence of previously treated [employer] lesions and the patient is known to have previous [employer] metastases. Meanwhile, respiratory status is stable. The patient has been weaned down and the patient's current FiO2 is at 2 L nasal cannula with pulse ox of 95%. A follow-up blood gas was done and showed a pH of 7.31 with a pCO2 of 67 and pO2 of 77. The patient remains on IV Lasix. The patient remains on Diamox. Fluid balance over the past 24 hours has been -3.4 L. Meanwhile, the serum bicarb is currently 31. Sodium levels at 137, potassium level of 3.9. The white cell count 11.7 with a hemoglobin of 10.7. Chest x-ray findings are essentially stable and the patient continues to have stable patchy airspace disease specially in the right upper lobe. No active respiratory difficulties. Some limited cough and congestion. Unable to bring up sputum. Remains on IV Zosyn. On 12/15/2024, the patient's mental status continues to wax and wane. This morning, he is found to be awake and alert and communicating. No significant respiratory distress. He is currently on 2 L of oxygen by nasal cannula. He was diuresed adequately over the past 24 to 48 hours and the fluid balance is - 2.1 L over the past 24 hours. Follow-up blood gas from today showed a pH of 7.36 with pCO2 56 and pO2 of 80 and the patient has a stable chest x-ray. The serum bicarb is currently at 33 with a sodium level of 137 and a potassium level of 3.3. The white cell count of 12.1 with a hemoglobin of 11. No other issues otherwise. The patient was consulted by neurology and he is going to have a follow-up EEG and MRI of the brain. Patient was seen today on 12/16/2024, patient remains in the ICU, remains ag itated at times requiring Haldol, presently on 3 L nasal cannula, O2 sats is 97%. Chest x-ray continues show patchy airspace opacities mostly in the right upper lobe patient received significant amount of antibiotics over the last 3 weeks while in the ICU. Sputum culture on 11/26 was positive for haemophilus influenza A and this was addressed and treated. WBC count today is 12.1 hemoglobin is 11.1, ABG yesterday showed a pO2 of 80 pCO2 56 pH of 7.36 Patient was seen today on 12/17/2024, basically about the same, continues to have intermittent episodes of confusion, MRI of the brain was requested, presently pending, patient seems to be in no distress as far as his pulmonary status, on room air. WBC count is 12.8 hemoglobin 12.2 electrolytes are normal except for potassium of 3.1 BUN of 33 creatinine 0.91 blood sugar is 250. Seen by neurology yesterday, and felt that the patient has a picture of toxic metabolic encephalopathy, there is a concern about possible brain metastasis, MRI is pending. The neurologist seems to be concerned about possible brain metastasis on this patient.In the meantime, patient is on Keppra 1000 mg twice daily. Objective - Vital Signs Vital signs: Vital Signs Temp 97.3 F L 12/17/24 13:26 Pulse 93 12/17/24 13:26 Resp 17 12/17/24 13:26 BP 96/74 12/17/24 13:26 Pulse Ox 100 12/17/24 08:08 FiO2 21 12/17/24 08:08 Intake & Output 12/16/24 12/17/24 12/17/24 18:59 06:59 18:59 Intake Total 480 Output Total 1800 2700 1 Balance -1799 Weight 69.8 kg Intake: Oral 480 Output: Urine 1800 2700 Stool 1 Other: Voiding Method Diaper Diaper Diaper External Catheter External Catheter External Catheter ABP, PAP, CO, CI - Last Documented Arterial Blood Pressure 131/85 - Exam Physical exam revealed 59-year-old white male, on room air, seems to be calm today. But according to the nurses he is intermittently agitated. And has been requiring a sitter Head: Atraumatic, normocephalic HEENT Examination is grossly unremarkable. Mucous membranes are moist. No oral lesions. Old tracheostomy scar is noted Neck supple. Full range of motion. No adenopathy thyromegaly or neck vein dis tention. Cardiovascular examination distant S1-S2, no S3 gallop, no murmur.. Lungs: Diminished breath sound bilaterally some rhonchi on forced expiratory maneuver Abdomen soft bowel sounds are heard. No masses or tenderness. Extremities superficial ulcerations, muscle wasting, good pulses bilaterally. Skin: Multiple superficial ulcerations noted in lower extremities, over the toes and patient does have right foot cool to touch, palpable pulses. Neurologic gets agitated easily otherwise no gross focal deficit Psychiatric: Normal mood affect and normal mental status today. - Labs CBC & Chem 7: 12/17/24 05:52 12/17/24 05:52 Labs: Abnormal Lab Results - Last 24 Hours (Table) 12/16/24 12/16/24 12/16/24 Range/Units 16:18 18:48 22:16 WBC (3.8-10.6) k/uL Hgb (13.0-17.5) gm/dL MCHC (31.0-37.0) g/dL RDW (11.5-15.5) % Neutrophils # (1.3-7.7) k/uL Lymphocytes # (1.0-4.8) k/uL Monocytes # (0-1.0) k/uL Potassium (3.5-5.1) mmol/L Carbon Dioxide (22-30) mmol/L BUN (9-20) mg/dL Glucose (74-99) mg/dL POC Glucose (mg/dL) 237 H 386 H (70-110) mg/dL TSH 0.432 L (0.465-4.680) mIU/L 12/17/24 12/17/24 12/17/24 Range/Units 05:11 05:52 05:52 WBC 12.8 H (3.8-10.6) k/uL Hgb 12.2 L (13.0-17.5) gm/dL MCHC 28.6 L (31.0-37.0) g/dL RDW 16.9 H (11.5-15.5) % Neutrophils # 10.4 H (1.3-7.7) k/uL Lymphocytes # 0.7 L (1.0-4.8) k/uL Monocytes # 1.3 H (0-1.0) k/uL Potassium 3.1 L (3.5-5.1) mmol/L Carbon Dioxide 31 H (22-30) mmol/L BUN 33 H (9-20) mg/dL Glucose 131 H (74-99) mg/dL POC Glucose (mg/dL) 149 H (70-110) mg/dL TSH (0.465-4.680) mIU/L 12/17/24 Range/Units 12:53 WBC (3.8-10.6) k/uL Hgb (13.0-17.5) gm/dL MCHC (31.0-37.0) g/dL RDW (11.5-15.5) % Neutrophils # (1.3-7.7) k/uL Lymphocytes # (1.0-4.8) k/uL Monocytes # (0-1.0) k/uL Potassium (3.5-5.1) mmol/L Carbon Dioxide (22-30) mmol/L BUN (9-20) mg/dL Glucose (74-99) mg/dL POC Glucose (mg/dL) 250 H (70-110) mg/dL TSH (0.465-4.680) mIU/L Assessment and Plan Assessment: Impression: Acute on chronic hypoxic and hypercapnic respiratory failure, requiring intubation and mechanical ventilation shortly after he received Ativan for agitation on the medical floor. Extubated on 11/29/2024 remains marginal and will continue to monitor in the ICU. Haemophilus influenza pneumonia, in the setting of acute influenza A infection/superimposed bacterial pneumonia Acute influenza A infection Atrial fibrillation with controlled ventricular response. The patient remains on a combination of amiodarone and metoprolol Metastatic small cell lung cancer, Chronic metabolic encephalopathy, multifactorial mostly with chronic hypercapnia Hypertension. Severe hypokalemia, improved Elevated troponins, possibly secondary to supply/demand mismatch. Altered mental status, most likely secondary to metabolic encephalopathy History of seizure disorder. Metastatic small cell lung cancer, receiving immunotherapy and most recent CAT scan of the brain and a CAT scan of the chest showed no evidence of any active disease. Presented to [facility] on 04/22/22 with increased confusion and disorientation. CT brain without contrast noted 2 large hypodense lesions in bilateral parietal lobes measuring 4.9 x 3.2 cm on the left and 3.3 x 3.1 cm on the right. Initial CXR showed 2.6 cm mass in left mid lung field. He was started on IV dexamethasone. MRI brain on 04/23/22 noted a left 4.9 x 4.8 x 4 cm left cerberal hemisphere lesion and 4.1 x 4.1 cm right cerebral hemisphere lesion. A left cerebellum lesion measured 1.4 x 1.2 x 0.9 cm along with a potential left cerebellar peduncle lesion measuring 5 mm. Transferred to [facility] where he underwent bilateral parietal crainiotomy on 05/06/22, path + lung primary with mixed small cell and adenocarcinoma histology (TTF-1, synaptophysin, chromogranin positive; CK20 positive in small cell component). PET/CT on 05/24/22 reported posterior lateral SERAFIN lung lesion with SUV 4.79, superior left hilar lymphadenopathy with SUV 4.97, and punctate posterior right lung nodule with SUV 1.12. Uptake was also noted at the costovertebral junction and posterior chest, but unclear if this was malignant in nature. He had SRS at [facility] from 05/30/22-06/07/22 receiving 57 Gy in 8 fractions. Had significant improvement in his vision since SRS. He received 4 cycles of carboplatin and etoposide from 07/05/22-09/08/22. Staging CT scans on 09/19/2022 revealed no evidence of disease progression with partial response. Brain MRI July 2022 with no evidence of disease recurrence.Brain MRI on 07/06/2023 revealed no evide nce of intracranial metastases. Repeat brain MRI on 08/28/2023 noted new anterior left temporal lobe lesion measuring 1.4 cm. He received 3 fractions of SRS with 27 Gordon from 09/04/2023 through 09/06/2023. Staging CT scans on 10/23/2023 revealed no evidence of metastatic disease. He was admitted to [facility] on 11/07/2023 with seizure and altered mental status was found to have new right temporal lobe lesion measuring 1.2 cm. Completed 3 fractions of SRS to the temporal lobe lesion in early December 2023. He restarted atezolizumab on 12/27/2023. Staging CT scans on 03/06/2024 and brain MRI on 03/18/2024 revealed no evidence of recurrent or metastatic disease. He was previously noted to have cy sts of the liver with no lesions concerning for definitive metastatic disease.He did have hospitalizations in May and June 2024 where brain MRI on 05/17/2024 noted stable intracranial lesions that were treated. CT abdomen/pelvis on 06/13/2024 revealed no evidence of malignancy with stable hep atic cysts. CT chest performed on 08/05/2024 revealed no evidence of metastatic disease. He is s/p 25 cycles of maintenance tecentriq. CAT scan of the chest done on 11/18/2024 shows no evidence of any residual tumor or tumor progression. Recommendation: Continue present supportive care measures GI and DVT prophylaxis Continue bronchodilators Continue antibiotics/Zosyn, this is being addressed by ID on the case. Continue systemic steroids, dose has been cut down and will continue to cut down further Continue metoprolol and amiodarone Prognosis remains guarded We are addressing the issue of ECF placement His overall prognosis remains extremely poor and guarded Time with Patient: Less than 30
--- NOTE | 2024-12-17 15:27 | P.PN ---
Subjective Progress Note Date: 12/17/24 Principal diagnosis: Reason for follow-up is left elbow septic olecranon bursitis/haemophilus pneumonia Patient is a 59-year-old male with a past medical history significant for hypertension seizure disorder atrial fibrillation he did have a metastatic lung cancer has been brought to the hospital for worsening swelling to the left elbow with a culture positive for MRSA concerning for septic olecranon bursitis. On today's evaluation that is 12/17/2024, Patient is afebrile this morning patient denies having any chest pain shortness of breath or any worsening cough, the patient is currently on room air, patient denies any abdominal pain no diarrhea no nausea no vomiting. Patient white count is 12.2, creatinine 0.91 Objective - Vital Signs Vital signs: Vital Signs Temp 97.3 F L 12/17/24 13:26 Pulse 93 12/17/24 13:26 Resp 17 12/17/24 13:26 BP 96/74 12/17/24 13:26 Pulse Ox 100 12/17/24 08:08 FiO2 21 12/17/24 08:08 Intake & Output 12/16/24 12/17/24 12/17/24 18:59 06:59 18:59 Intake Total 480 830 Output Total 1800 2700 1103 Balance -1800 -0 -273 Weight 69.8 kg Intake: IV 80 0.9 Normal Saline 80 Oral 480 750 Output: Urine 1800 2700 1100 Stool 3 Other: Voiding Method Diaper Diaper Diaper External Catheter External Catheter External Catheter ABP, PAP, CO, CI - Last Documented Arterial Blood Pressure 131/85 - Exam GENERAL DESCRIPTION: Middle-age male lying in bed in no distress RESPIRATORY SYSTEM: Unlabored breathing , decreased breath sounds at bases HEART: S1 S2 regular rate and rhythm , ABDOMEN: Soft , no tenderness EXTREMITIES: No edema feet - Labs CBC & Chem 7: 12/17/24 05:52 12/17/24 13:53 Labs: Abnormal Lab Results - Last 24 Hours (Table) 12/16/24 12/16/24 12/16/24 Range/Units 16:18 18:48 22:16 WBC (3.8-10.6) k/uL Hgb (13.0-17.5) gm/dL MCHC (31.0-37.0) g/dL RDW (11.5-15.5) % Neutrophils # (1.3-7.7) k/uL Lymphocytes # (1.0-4.8) k/uL Monocytes # (0-1.0) k/uL Potassium (3.5-5.1) mmol/L Carbon Dioxide (22-30) mmol/L BUN (9-20) mg/dL Glucose (74-99) mg/dL POC Glucose (mg/dL) 237 H 386 H (70-110) mg/dL TSH 0.432 L (0.465-4.680) mIU/L 12/17/24 12/17/24 12/17/24 Range/Units 05:11 05:52 05:52 WBC 12.8 H (3.8-10.6) k/uL Hgb 12.2 L (13.0-17.5) gm/dL MCHC 28.6 L (31.0-37.0) g/dL RDW 16.9 H (11.5-15.5) % Neutrophils # 10.4 H (1.3-7.7) k/uL Lymphocytes # 0.7 L (1.0-4.8) k/uL Monocytes # 1.3 H (0-1.0) k/uL Potassium 3.1 L (3.5-5.1) mmol/L Carbon Dioxide 31 H (22-30) mmol/L BUN 33 H (9-20) mg/dL Glucose 131 H (74-99) mg/dL POC Glucose (mg/dL) 149 H (70-110) mg/dL TSH (0.465-4.680) mIU/L 12/17/24 Range/Units 12:53 WBC (3.8-10.6) k/uL Hgb (13.0-17.5) gm/dL MCHC (31.0-37.0) g/dL RDW (11.5-15.5) % Neutrophils # (1.3-7.7) k/uL Lymphocytes # (1.0-4.8) k/uL Monocytes # (0-1.0) k/uL Potassium (3.5-5.1) mmol/L Carbon Dioxide (22-30) mmol/L BUN (9-20) mg/dL Glucose (74-99) mg/dL POC Glucose (mg/dL) 250 H (70-110) mg/dL TSH (0.465-4.680) mIU/L Assessment and Plan (1) Septic olecranon bursitis of left elbow Current Visit: Yes Status: Acute Code(s): M71.122 - OTHER INFECTIVE BURSITIS, LEFT ELBOW SNOMED Code(s): 1071938088275593 (2) Allergy to cephalosporin Current Visit: No Status: Acute Code(s): Z88.1 - ALLERGY STATUS TO OTHER ANTIBIOTIC AGENTS SNOMED Code(s): 239856075 (3) MRSA (methicillin resistant Staphylococcus aureus) infection Current Visit: Yes Status: Acute Code(s): A49.02 - METHICILLIN RESIS STAPH INFECTION, UNSP SITE SNOMED Code(s): 043899838 (4) Influenza A Current Visit: Yes Status: Acute Code(s): J10.1 - FLU DUE TO OTH IDENT INFLUENZA VIRUS W OTH RESP MANIFEST SNOMED Code(s): 773420684 (5) Pneumonia Current Visit: No Status: Acute Code(s): J18.9 - PNEUMONIA, UNSPECIFIED ORGANISM SNOMED Code(s): 193498257 Plan: 1patient being admitted to the hospital for left elbow pain swelling redness he did have a wound with a culture positive for MRSA in the outpatient setting now with concern for left elbow septic olecranon bursitis for the patient received adequate IV vancomycin and did have healing of his left elbow ulcer/olecranon bursitis. 2patient with influenza A for which the patient has completed 5-day course of Tamiflu 3patient is afebrile white count is mildly elevated but overall-clinically will be requiring the supplemental oxygen continue with Zosyn and monitor clinical course closely Dictation was produced using [employer] dictation software. please excuse any grammatical, word or spelling errors. Time with Patient: Less than 30
[2024-12-17 16:51] LABS: Glucose,Whole Blood 322 mg/dL (70-110)
[2024-12-17 16:51] LABS: Glucose,Whole Blood 462 mg/dL (70-110)
--- NOTE | 2024-12-17 17:11 | P.PN ---
Subjective Progress Note Date: 12/17/24 12/17/2024: Patient was seen for a follow-up. Patient is sitting on the side of the bed, wants to get up. Sitter was also present. He has not been up on his feet since he has been hospitalized. Patient is speaking more clearly, in full sentences. He was more cooperative with examination today as below. Appears comfortable and cooperative. 12/16/2024: Patient was initially seen by Dr. Landis. Please refer to her note for details. Patient has known history of lung cancer with brain metastasis. Patient has history of seizures as well. Patient has been in the hospital since 11/12/2024. Per sitter, patient has been really "nasty", all day, trying to push away the oxygen mask for treatment. He is hallucinating, bringing his fingers to the mouth like smoking. Sometimes he is trying to get something from air. No seizures. The sitter also reported the patient's sister was present, who mentioned that he has always been "mean". Objective - Vital Signs Vital signs: Vital Signs Temp 97.3 F L 12/17/24 13:26 Pulse 96 12/17/24 15:48 Resp 17 12/17/24 13:26 BP 96/74 12/17/24 13:26 Pulse Ox 100 12/17/24 08:08 FiO2 21 12/17/24 08:08 Intake & Output 12/16/24 12/17/24 12/17/24 18:59 06:59 18:59 Intake Total 480 830 Output Total 1800 2700 1103 Balance -1800 -2220 -273 Weight 69.8 kg Intake: IV 80 0.9 Normal Saline 80 Oral 480 750 Output: Urine 1800 2700 1100 Stool 3 Other: Voiding Method Diaper Diaper Diaper External Catheter External Catheter External Catheter ABP, PAP, CO, CI - Last Documented Arterial Blood Pressure 131/85 - Exam Patient is alert and awake, sitting on the side of the bed. Speech and language functions appears normal. 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 His ankle dorsiflexion appears fairly normal, knee extension also normal. Hip flexion at about 4+5-bilaterally. He appears somewhat malnutrition. - Labs CBC & Chem 7: 12/17/24 05:52 12/17/24 13:53 Labs: Abnormal Lab Results - Last 24 Hours (Table) 12/16/24 12/16/24 12/16/24 Range/Units 16:18 18:48 22:16 WBC (3.8-10.6) k/uL Hgb (13.0-17.5) gm/dL MCHC (31.0-37.0) g/dL RDW (11.5-15.5) % Neutrophils # (1.3-7.7) k/uL Lymphocytes # (1.0-4.8) k/uL Monocytes # (0-1.0) k/uL Potassium (3.5-5.1) mmol/L Carbon Dioxide (22-30) mmol/L BUN (9-20) mg/dL Glucose (74-99) mg/dL POC Glucose (mg/dL) 237 H 386 H (70-110) mg/dL TSH 0.432 L (0.465-4.680) mIU/L 12/17/24 12/17/24 12/17/24 Range/Units 05:11 05:52 05:52 WBC 12.8 H (3.8-10.6) k/uL Hgb 12.2 L (13.0-17.5) gm/dL MCHC 28.6 L (31.0-37.0) g/dL RDW 16.9 H (11.5-15.5) % Neutrophils # 10.4 H (1.3-7.7) k/uL Lymphocytes # 0.7 L (1.0-4.8) k/uL Monocytes # 1.3 H (0-1.0) k/uL Potassium 3.1 L (3.5-5.1) mmol/L Carbon Dioxide 31 H (22-30) mmol/L BUN 33 H (9-20) mg/dL Glucose 131 H (74-99) mg/dL POC Glucose (mg/dL) 149 H (70-110) mg/dL TSH (0.465-4.680) mIU/L 12/17/24 Range/Units 12:53 WBC (3.8-10.6) k/uL Hgb (13.0-17.5) gm/dL MCHC (31.0-37.0) g/dL RDW (11.5-15.5) % Neutrophils # (1.3-7.7) k/uL Lymphocytes # (1.0-4.8) k/uL Monocytes # (0-1.0) k/uL Potassium (3.5-5.1) mmol/L Carbon Dioxide (22-30) mmol/L BUN (9-20) mg/dL Glucose (74-99) mg/dL POC Glucose (mg/dL) 250 H (70-110) mg/dL TSH (0.465-4.680) mIU/L Assessment and Plan Assessment: 1. Toxic metabolic encephalopathy: Multifactorial-secondary to hypercapnia, pneumonia, brain mets, prolonged hospitalization 2. Lung cancer with brain metastases 3. Reported history of seizures, likely secondary to brain mets Plan: 1. MRI of the brain with and without contrast performed today revealed no evidence for acute/subacute CVA. Bilateral parietal lesions which have decreased in size from 11/08/2023. Evaluation to 05/15/2024 is unable to be performed due to images during downtime. No new lesion identified from 11/08/2023. Left mastoid air cell effusion. Nonspecific white matter changes. I personally reviewed current and prior MRI from 11/08/2023, and agree with the findings. No new lesions or worsening of the prior lesions when compared to the MRI from 11/08/2023. 2. EEG was abnormal due to background slowing of moderate to severe degree. This is suggestive of generalized cerebral dysfunction as can be seen with toxic metabolic encephalopathy or related to diffuse structural brain abnormality. Clinical correlation is recommended. No epileptiform activity was seen. 3. Attempt to keep appropriate sleep/wake cycle 4. TSH 0.43, free T4 1.35. We will defer to IM to address abnormal thyroid functions. Vitamin B12 495, folate 14.30, vitamin D level 30.2, RPR. 5. Continue Keppra 1000 mg twice daily. 6. Start active PT and OT. Patient's strength is fairly well-preserved in the legs as well. Patient may be a good candidate for rehab.
[2024-12-17 20:02] LABS: Glucose,Whole Blood 255 mg/dL (70-110)
--- NOTE | 2024-12-17 21:46 | PN ---
PROGRESS NOTE DATE OF SERVICE: 12/17/2024 CHIEF COMPLAINT: CA of the lung, respiratory failure, pneumonitis, and confusion. HISTORY OF PRESENT ILLNESS: This gentleman is awake, but still confused. PHYSICAL EXAMINATION: VITAL SIGNS: Normal. LUNGS: Breath sounds are heard bilaterally. CARDIAC: Unremarkable and unchanged. ABDOMEN: Flat, soft, and nontender. IMPRESSION: 1. Cancer of the lung. 2. Delirium. 3. Pneumonitis with sepsis. 4. Abscess of left elbow. PLAN: Continue with his conservative management. PROGNOSIS: Guarded. MMODL / IJN: [id number] /
[2024-12-18 05:47] LABS: Anisocytosis Slight; Basophils # (A) 0.1 k/uL (0-0.2); Basophils % (A) 0 %; Eosinophils # (A) 0.1 k/uL (0-0.7); Eosinophils % (A) 1 %; HCT 40.1 % (39.0-53.0); HGB 11.6 gm/dL (13.0-17.5); Hypochromasia Marked; Lymphocytes # (A) 0.9 k/uL (1.0-4.8); Lymphocytes % (A) 6 %; MCH 28.1 pg (25.0-35.0); MCV 97.1 fL (80.0-100.0); Macrocytosis Slight; Mean Platelet Volume 8.6; Monocytes # (A) 1.5 k/uL (0-1.0); Monocytes % (A) 9 %; Neutrophils % (A) 82 %; Platelet Count 308 k/uL (150-450); RBC 4.13 m/uL (4.30-5.90); RDW 17.3 % (11.5-15.5); WBC 15.7 k/uL (3.8-10.6)
[2024-12-18 05:52] LABS: African American GFR (CKD) >90 (>60 ml/min/1.73 sqM); Anion Gap 4 mmol/L; Blood Urea Nitrogen 41 mg/dL (9-20); Calcium 8.9 mg/dL (8.4-10.2); Carbon Dioxide 27 mmol/L (22-30); Chloride 111 mmol/L (98-107); Glucose 121 mg/dL (74-99); Non-African American GFR(CKD) >90 (>60 ml/min/1.73 sqM); Potassium 3.8 mmol/L (3.5-5.1); Sodium 142 mmol/L (137-145)
[2024-12-18 06:03] LABS: Glucose,Whole Blood 123 mg/dL (70-110)
[2024-12-18] MEDS ORDERED: HALOPERIDOL LACTATE 5 MG/ML 1 ML VIAL IM PRN (07:26)
[2024-12-18 11:18] LABS: Glucose,Whole Blood 138 mg/dL (70-110)
--- NOTE | 2024-12-18 13:08 | P.PN ---
Subjective Progress Note Date: 12/18/24 The patient is seen today December 18, 2024 in follow-up on the selective care unit. He was transferred out of the intensive care unit yesterday. He remains awake and alert. Oriented to person only. assistant front end manager at the bedside. He is maintaining good O2 saturations in the 90s on room air. He has been afebrile. Hemodynamically stable. MRI of the brain revealed no evidence of acute/subacute CVA. There is bilateral parietal lesions which have decreased in size compared to November 08, 2023. White count 15.7. Hemoglobin 11.6. Platelets 308. Sodium 142. Potassium 3.8. Bicarb 27. BUN 41. Creatinine 0.80. Glucose 121. Patient's, Pulmicort and Perforomist inhalations, prednisone taper. Remains on antibiotics in the form of Zosyn. Heparin for DVT prophylaxis. Remains on IV diuretics. Currently in a -330 mL balance. Objective - Vital Signs Vital signs: Vital Signs Temp 98.4 F 12/18/24 12:35 Pulse 89 12/18/24 12:35 Resp 16 12/18/24 12:35 BP 92/67 12/18/24 12:35 Pulse Ox 95 12/18/24 09:14 FiO2 21 12/17/24 08:08 Intake & Output 12/17/24 12/18/24 12/18/24 18:59 06:59 18:59 Intake Total 1470 640 Output Total 1753 1100 Balance -283 -460 Intake: IV 220 140 0.9 Normal Saline 120 40 Piperacillin-Tazobactam 3 100 100 .375 gm In Sodium Chloride 0.9% 100 ml @ 25 mls/hr IVPB Q8H [facility] Rx#: [id number] Oral 1250 500 Output: Urine 1750 1100 Stool 3 Other: Voiding Method Diaper Diaper External Catheter External Catheter External Catheter # Bowel Movements 2 ABP, PAP, CO, CI - Last Documented Arterial Blood Pressure 131/85 - Exam GENERAL EXAM: Alert, weak, 59-year-old male, sitting up in bed, on room air, comfortable in no apparent distress. HEAD: Normocephalic. EYES: Normal reaction of pupils, equal size. NOSE: Clear with pink turbinates. THROAT: No erythema or exudates. Evidence of previous tracheostomy. NECK: No masses, no JVD. CHEST: No chest wall deformity. LUNGS: Equal air entry with lateral scattered rhonchi. CVS: S1 and S2 normal with no audible murmur, regular rhythm. ABDOMEN: No hepatosplenomegaly, normal bowel sounds, no guarding or rigidity. SPINE: No scoliosis or deformity SKIN: No rashes. Superficial ulcerations over the lower extremities. CENTRAL NERVOUS SYSTEM: Oriented to person only, no focal deficits, tone is normal in all 4 extremities. EXTREMITIES: There is no peripheral edema. No clubbing, no cyanosis. Peripheral pulses are intact. - Labs CBC & Chem 7: 12/18/24 05:15 12/18/24 05:15 Labs: Abnormal Lab Results - Last 24 Hours (Table) 12/17/24 12/17/24 12/17/24 Range/Units 12:53 16:47 16:50 WBC (3.8-10.6) k/uL RBC (4.30-5.90) m/uL Hgb (13.0-17.5) gm/dL MCHC (31.0-37.0) g/dL RDW (11.5-15.5) % Neutrophils # (1.3-7.7) k/uL Lymphocytes # (1.0-4.8) k/uL Monocytes # (0-1.0) k/uL Chloride (98-107) mmol/L BUN (9-20) mg/dL Glucose (74-99) mg/dL POC Glucose (mg/dL) 250 H 462 H 322 H (70-110) mg/dL 12/17/24 12/18/24 12/18/24 Range/Units 20:00 05:15 05:15 WBC 15.7 H (3.8-10.6) k/uL RBC 4.13 L (4.30-5.90) m/uL Hgb 11.6 L (13.0-17.5) gm/dL MCHC 29.0 L (31.0-37.0) g/dL RDW 17.3 H (11.5-15.5) % Neutrophils # 13.0 H (1.3-7.7) k/uL Lymphocytes # 0.9 L (1.0-4.8) k/uL Monocytes # 1.5 H (0-1.0) k/uL Chloride 111 H (98-107) mmol/L BUN 41 H (9-20) mg/dL Glucose 121 H (74-99) mg/dL POC Glucose (mg/dL) 255 H (70-110) mg/dL 12/18/24 12/18/24 Range/Units 06:02 11:14 WBC (3.8-10.6) k/uL RBC (4.30-5.90) m/uL Hgb (13.0-17.5) gm/dL MCHC (31.0-37.0) g/dL RDW (11.5-15.5) % Neutrophils # (1.3-7.7) k/uL Lymphocytes # (1.0-4.8) k/uL Monocytes # (0-1.0) k/uL Chloride (98-107) mmol/L BUN (9-20) mg/dL Glucose (74-99) mg/dL POC Glucose (mg/dL) 123 H 138 H (70-110) mg/dL Assessment and Plan Assessment: Acute on chronic hypoxic and hypercapnic respiratory failure, requiring intubation and mechanical ventilation shortly after he received Ativan for agitation on the medical floor. Extubated on 11/29/2024. Recovered and on room air oxygen Haemophilus influenza pneumonia, in the setting of acute influenza A infection/superimposed bacterial pneumonia Acute influenza A infection Elevated troponins, possibly secondary to supply/demand mismatch Ongoing fluctuation in mental status/delirium, weakness and episodes of confusion Atrial fibrillation with controlled ventricular response. 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 Most recently treated with Tecentriq. CAT scan of the chest done on 11/18/2024 shows no evidence of any residual tumor or tumor progression. History of metastatic brain lesions. 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 MRI of the brain December 17, 2024 revealed bilateral parietal lesions which have decreased in size compared to November 08, 2023. History of seizures, maintained on Keppra Chronic metabolic encephalopathy, multifactorial mostly with chronic hypercapnia Hypertension Striae of polysubstance abuse Olecranon bursitis, wound culture positive for methicillin-resistant Staphylococcus aureus. The patient was treated with vancomycin Plan: The patient was seen and evaluated Labs and medications reviewed Currently stable and on room air oxygen Remains on bronchodilators, steroids Heparin for DVT prophylaxis Continued on Zosyn per ID service assistant front end manager currently at the bedside May be transferred to [facility] if able to be safe without a safety lead This patient was seen independently by the pulmonary nurse practitioner addressing pulmonary issues I have personally seen and examined the patient, performed the documentation and the assessment and plan as written. Number of minutes spent on the visit: 24 Dictation was produced using [employer] dictation software. Please excuse any gra mmatical, word or spelling errors.
[2024-12-18 16:57] LABS: Glucose,Whole Blood 211 mg/dL (70-110)
--- NOTE | 2024-12-18 16:59 | P.PN ---
Subjective Progress Note Date: 12/18/24 12/18/2024: Patient was seen for a follow-up. Patient is sitting on the side of the bed. He denies any headache any chest pain. Per sitter, he is slightly more responsive. No new concerns. 12/17/2024: Patient was seen for a follow-up. Patient is sitting on the side of the bed, wants to get up. Sitter was also present. He has not been up on his feet since he has been hospitalized. Patient is speaking more clearly, in full sentences. He was more cooperative with examination today as below. Appears comfortable and cooperative. 12/16/2024: Patient was initially seen by Dr. Landis. Please refer to her note for details. Patient has known history of lung cancer with brain metastasis. Patient has history of seizures as well. Patient has been in the hospital since 11/12/2024. Per sitter, patient has been really "nasty", all day, trying to push away the oxygen mask for treatment. He is hallucinating, bringing his fingers to the mouth like smoking. Sometimes he is trying to get something from air. No seizures. The sitter also reported the patient's sister was present, who mentioned that he has always been "mean". Objective - Vital Signs Vital signs: Vital Signs Temp 98.4 F 12/18/24 12:35 Pulse 89 12/18/24 12:35 Resp 16 12/18/24 12:35 BP 92/67 12/18/24 12:35 Pulse Ox 95 12/18/24 09:14 FiO2 21 12/17/24 08:08 Intake & Output 12/17/24 12/18/24 12/18/24 18:59 06:59 18:59 Intake Total 1470 640 Output Total 1753 1100 Balance -283 -460 Intake: IV 220 140 0.9 Normal Saline 120 40 Piperacillin-Tazobactam 3 100 100 .375 gm In Sodium Chloride 0.9% 100 ml @ 25 mls/hr IVPB Q8H [facility] Rx#: [id number] Oral 1250 500 Output: Urine 1750 1100 Stool 3 Other: Voiding Method Diaper Diaper External Catheter External Catheter External Catheter # Bowel Movements 2 ABP, PAP, CO, CI - Last Documented Arterial Blood Pressure 131/85 - Exam Patient is alert and awake, sitting on the side of the bed. Speech and language functions appears normal. 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 His ankle dorsiflexion appears fairly normal, knee extension also normal. Hip flexion at about 4+5-bilaterally. He appears somewhat malnutrition. - Labs CBC & Chem 7: 12/18/24 05:15 12/18/24 05:15 Labs: Abnormal Lab Results - Last 24 Hours (Table) 12/17/24 12/17/24 12/17/24 Range/Units 16:47 16:50 20:00 WBC (3.8-10.6) k/uL RBC (4.30-5.90) m/uL Hgb (13.0-17.5) gm/dL MCHC (31.0-37.0) g/dL RDW (11.5-15.5) % Neutrophils # (1.3-7.7) k/uL Lymphocytes # (1.0-4.8) k/uL Monocytes # (0-1.0) k/uL Chloride (98-107) mmol/L BUN (9-20) mg/dL Glucose (74-99) mg/dL POC Glucose (mg/dL) 462 H 322 H 255 H (70-110) mg/dL 12/18/24 12/18/24 12/18/24 Range/Units 05:15 05:15 06:02 WBC 15.7 H (3.8-10.6) k/uL RBC 4.13 L (4.30-5.90) m/uL Hgb 11.6 L (13.0-17.5) gm/dL MCHC 29.0 L (31.0-37.0) g/dL RDW 17.3 H (11.5-15.5) % Neutrophils # 13.0 H (1.3-7.7) k/uL Lymphocytes # 0.9 L (1.0-4.8) k/uL Monocytes # 1.5 H (0-1.0) k/uL Chloride 111 H (98-107) mmol/L BUN 41 H (9-20) mg/dL Glucose 121 H (74-99) mg/dL POC Glucose (mg/dL) 123 H (70-110) mg/dL 03/19/25 Range/Units 11:14 WBC (3.8-10.6) k/uL RBC (4.30-5.90) m/uL Hgb (13.0-17.5) gm/dL MCHC (31.0-37.0) g/dL RDW (11.5-15.5) % Neutrophils # (1.3-7.7) k/uL Lymphocytes # (1.0-4.8) k/uL Monocytes # (0-1.0) k/uL Chloride (98-107) mmol/L BUN (9-20) mg/dL Glucose (74-99) mg/dL POC Glucose (mg/dL) 138 H (70-110) mg/dL Assessment and Plan Assessment: 1. Toxic metabolic encephalopathy: Multifactorial-secondary to hypercapnia, pneumonia, brain mets, prolonged hospitalization 2. Lung cancer with brain metastases 3. Reported history of seizures, likely secondary to brain mets Plan: 1. MRI of the brain with and without contrast performed today revealed no evidence for acute/subacute CVA. Bilateral parietal lesions which have decreased in size from 11/08/2023. Evaluation to 05/15/2024 is unable to be performed due to images during downtime. No new lesion identified from 11/08/2023. Left mastoid air cell effusion. Nonspecific white matter changes. I personally reviewed current and prior MRI from 11/08/2023, and agree with the findings. No new lesions or worsening of the prior lesions when compared to the MRI from 11/08/2023. 2. EEG was abnormal due to background slowing of moderate to severe degree. This is suggestive of generalized cerebral dysfunction as can be seen with toxic metabolic encephalopathy or related to diffuse structural brain abnormality. Clinical correlation is recommended. No epileptiform activity was seen. 3. Attempt to keep appropriate sleep/wake cycle 4. TSH 0.43, free T4 1.35. We will defer to IM to address abnormal thyroid functions. Vitamin B12 495, folate 14.30, vitamin D level 30.2, RPR. 5. Continue Keppra 1000 mg twice daily. 6. Start active PT and OT. Patient's strength is fairly well-preserved in the legs as well. Patient may be a good candidate for rehab. Possible to [facility] in the morning. Neurologically clear.
--- NOTE | 2024-12-18 17:24 | P.PN ---
Subjective Progress Note Date: 12/18/24 Principal diagnosis: Reason for follow-up is left elbow septic olecranon bursitis/haemophilus pneumonia Patient is a 59-year-old male with a past medical history significant for hypertension seizure disorder atrial fibrillation he did have a metastatic lung cancer has been brought to the hospital for worsening swelling to the left elbow with a culture positive for MRSA concerning for septic olecranon bursitis. On today's evaluation that is 12/18/2024,the patient denies any fever or any chills, patient is breathing comfortably on room air, the patient slightly more awake denies any chest pain occasional cough no abdominal pain and no diarrhea reported. White count is 15.7, creatinine 0.80 Objective - Vital Signs Vital signs: Vital Signs Temp 98.4 F 12/18/24 12:35 Pulse 89 12/18/24 12:35 Resp 16 12/18/24 12:35 BP 92/67 12/18/24 12:35 Pulse Ox 95 12/18/24 09:14 FiO2 21 12/17/24 08:08 Intake & Output 12/17/24 12/18/24 12/18/24 18:59 06:59 18:59 Intake Total 1470 640 Output Total 1753 1100 Balance -283 -460 Intake: IV 220 140 0.9 Normal Saline 120 40 Piperacillin-Tazobactam 3 100 100 .375 gm In Sodium Chloride 0.9% 100 ml @ 25 mls/hr IVPB Q8H [facility] Rx#: [id number] Oral 1250 500 Output: Urine 1750 1100 Stool 3 Other: Voiding Method Diaper Diaper External Catheter External Catheter External Catheter # Bowel Movements 2 ABP, PAP, CO, CI - Last Documented Arterial Blood Pressure 131/85 - Exam GENERAL DESCRIPTION: Middle-age male lying in bed in no distress RESPIRATORY SYSTEM: Unlabored breathing , decreased breath sounds at bases HEART: S1 S2 regular rate and rhythm , ABDOMEN: Soft , no tenderness EXTREMITIES: No edema feet - Labs CBC & Chem 7: 12/18/24 05:15 12/18/24 05:15 Labs: Abnormal Lab Results - Last 24 Hours (Table) 12/17/24 12/17/24 12/17/24 Range/Units 16:47 16:50 20:00 WBC (3.8-10.6) k/uL RBC (4.30-5.90) m/uL Hgb (13.0-17.5) gm/dL MCHC (31.0-37.0) g/dL RDW (11.5-15.5) % Neutrophils # (1.3-7.7) k/uL Lymphocytes # (1.0-4.8) k/uL Monocytes # (0-1.0) k/uL Chloride (98-107) mmol/L BUN (9-20) mg/dL Glucose (74-99) mg/dL POC Glucose (mg/dL) 462 H 322 H 255 H (70-110) mg/dL 12/18/24 12/18/24 12/18/24 Range/Units 05:15 05:15 06:02 WBC 15.7 H (3.8-10.6) k/uL RBC 4.13 L (4.30-5.90) m/uL Hgb 11.6 L (13.0-17.5) gm/dL MCHC 29.0 L (31.0-37.0) g/dL RDW 17.3 H (11.5-15.5) % Neutrophils # 13.0 H (1.3-7.7) k/uL Lymphocytes # 0.9 L (1.0-4.8) k/uL Monocytes # 1.5 H (0-1.0) k/uL Chloride 111 H (98-107) mmol/L BUN 41 H (9-20) mg/dL Glucose 121 H (74-99) mg/dL POC Glucose (mg/dL) 123 H (70-110) mg/dL 12/18/24 Range/Units 11:14 WBC (3.8-10.6) k/uL RBC (4.30-5.90) m/uL Hgb (13.0-17.5) gm/dL MCHC (31.0-37.0) g/dL RDW (11.5-15.5) % Neutrophils # (1.3-7.7) k/uL Lymphocytes # (1.0-4.8) k/uL Monocytes # (0-1.0) k/uL Chloride (98-107) mmol/L BUN (9-20) mg/dL Glucose (74-99) mg/dL POC Glucose (mg/dL) 138 H (70-110) mg/dL Assessment and Plan (1) Septic olecranon bursitis of left elbow Current Visit: Yes Status: Acute Code(s): M71.122 - OTHER INFECTIVE BURSITIS, LEFT ELBOW SNOMED Code(s): 8041247988636864 (2) Allergy to cephalosporin Current Visit: No Status: Acute Code(s): Z88.1 - ALLERGY STATUS TO OTHER ANTIBIOTIC AGENTS SNOMED Code(s): 566371029 (3) MRSA (methicillin resistant Staphylococcus aureus) infection Current Visit: Yes Status: Acute Code(s): A49.02 - METHICILLIN RESIS STAPH INFECTION, UNSP SITE SNOMED Code(s): 882553907 (4) Influenza A Current Visit: Yes Status: Acute Code(s): J10.1 - FLU DUE TO OTH IDENT INFLUENZA VIRUS W OTH RESP MANIFEST SNOMED Code(s): 581663312 (5) Pneumonia Current Visit: No Status: Acute Code(s): J18.9 - PNEUMONIA, UNSPECIFIED ORGANISM SNOMED Code(s): 825168034 Plan: 1patient being admitted to the hospital for left elbow pain swelling redness he did have a wound with a culture positive for MRSA in the outpatient setting now with concern for left elbow septic olecranon bursitis for the patient received adequate IV vancomycin and did have healing of his left elbow ulcer/olecranon bursitis. 2patient with influenza A for which the patient has completed 5-day course of Tamiflu 3patient is afebrile white count is mildly elevated questionably steroid related for possible oropharyngeal candidiasis, will give a dose of Diflucan continue Zosyn repeat CBC with a.m. lab Dictation was produced using [employer] software. please excuse any grammatical, word or spelling errors.
[2024-12-18] MEDS: FLUCONAZOLE 100 MG TAB PO SCH (18:14)
[2024-12-18 20:54] LABS: Glucose,Whole Blood 214 mg/dL (70-110)
--- NOTE | 2024-12-18 22:43 | P.PN ---
Subjective Progress Note Date: 12/18/24 Principal diagnosis: Extensive stage small cell lung cancer -Afebrile, no acute events overnight -Appears more alert and appropriate in conversation, closer to his baseline -He denies any pain, dyspnea, or new signs or symptoms -He does endorse weakness and is motivated to regain his strength Objective - Vital Signs Vital signs: Vital Signs Temp 97.1 F L 12/18/24 19:03 Pulse 88 12/18/24 21:42 Resp 16 12/18/24 19:03 BP 107/72 12/18/24 19:03 Pulse Ox 96 12/18/24 19:03 FiO2 21 12/17/24 08:08 Intake & Output 12/18/24 12/18/24 12/19/24 06:59 18:59 06:59 Intake Total 640 540 Output Total 1100 Balance -460 540 Intake: IV 140 0.9 Normal Saline 40 Piperacillin-Tazobactam 3 100 .375 gm In Sodium Chloride 0.9% 100 ml @ 25 mls/hr IVPB Q8H [facility] Rx#: [id number] Oral 500 540 Output: Urine 1100 Other: Voiding Method Diaper External Catheter External Catheter External Catheter # Bowel Movements 2 ABP, PAP, CO, CI - Last Documented Arterial Blood Pressure 131/85 - Constitutional General appearance: Present: cooperative, no acute distress - EENT Eyes: Present: EOMI - Respiratory Details: Nonlabored breathing - Cardiovascular Details: Warm and well-perfused - Gastrointestinal General gastrointestinal: Present: soft. Absent: distended - Integumentary Integumentary Comment(s): Healed ulcers in the lower extremities bilaterally Integumentary: Present: pale. Absent: rash - Neurologic Neurologic: Present: CNII-XII intact. Absent: focal deficits - Labs CBC & Chem 7: 12/18/24 05:15 12/18/24 05:15 Labs: Abnormal Lab Results - Last 24 Hours (Table) 12/18/24 12/18/24 12/18/24 Range/Units 05:15 05:15 06:02 WBC 15.7 H (3.8-10.6) k/uL RBC 4.13 L (4.30-5.90) m/uL Hgb 11.6 L (13.0-17.5) gm/dL MCHC 29.0 L (31.0-37.0) g/dL RDW 17.3 H (11.5-15.5) % Neutrophils # 13.0 H (1.3-7.7) k/uL Lymphocytes # 0.9 L (1.0-4.8) k/uL Monocytes # 1.5 H (0-1.0) k/uL Chloride 111 H (98-107) mmol/L BUN 41 H (9-20) mg/dL Glucose 121 H (74-99) mg/dL POC Glucose (mg/dL) 123 H (70-110) mg/dL 12/18/24 12/18/24 12/18/24 Range/Units 11:14 16:54 20:52 WBC (3.8-10.6) k/uL RBC (4.30-5.90) m/uL Hgb (13.0-17.5) gm/dL MCHC (31.0-37.0) g/dL RDW (11.5-15.5) % Neutrophils # (1.3-7.7) k/uL Lymphocytes # (1.0-4.8) k/uL Monocytes # (0-1.0) k/uL Chloride (98-107) mmol/L BUN (9-20) mg/dL Glucose (74-99) mg/dL POC Glucose (mg/dL) 138 H 211 H 214 H (70-110) mg/dL - Imaging and Cardiology MRI - head: report reviewed Assessment and Plan (1) Metabolic encephalopathy Current Visit: Yes Status: Acute Code(s): G93.41 - METABOLIC ENCEPHALOPATHY SNOMED Code(s): 59067340 (2) Extensive stage primary small cell carcinoma of lung Current Visit: Yes Status: Acute Code(s): C34.90 - MALIGNANT NEOPLASM OF UNSP PART OF UNSP BRONCHUS OR LUNG SNOMED Code(s): 862273510611437 Plan: Metabolic encephalopathy -Patient has had similar episodes in the past, usually associated with seizure activity or disease progression in the brain. CT of the head without contrast this visit did not report any acute or new findings, no reports of seizure activity -He was treated for left septic bursitis of the elbow -Sputum cultures positive for haemophilus influenza with respiratory PCR positive for influenza A -He was subsequently transferred to the ICU for acute hypoxic respiratory failure and required mechanical intubation -CT of the brain with contrast prior to transfer to the ICU revealed no acute metabolic abnormalities -As he was noted to have waxing and waning of mental status, MRI of the brain was performed on 12/17/2024 that revealed treated parietal lobe lesions bilaterally with no evidence of new metastases or edema -Clinically, his mental status on today's encounter is improved and closer to his baseline -No new interventions are required from an oncology perspective in this regard and is likely improving with treatment of the aforementioned infectious etiologies above Extensive stage small cell lung cancer -Diagnosis and treatment as stated in consult -Patient has had disease recurrence, all within the brain. Treated with radiation -Patient has been on maintenance immunotherapy treatment for almost 2 years -Staging CT scans in early November prior to admission along with CT brain with contrast and MRI of the brain on 12/17/2024 revealing no evidence of disease progression -We will hold maintenance Tecentriq at this time -Highly suspect patient is going to need rehabilitation especially after 34 days inpatient. Treatment will be on hold until patient is discharged from rehabilitation. He will need to be assessed by the Medical Oncologist prior to resuming any treatment -He will cont to have treatment and f/u imaging as directed by Med Onc and Rad Onc Mo Rahman MD
--- NOTE | 2024-12-18 23:41 | PN ---
PROGRESS NOTE CHIEF COMPLAINT: Sepsis, CA of the lung, and delirium. HISTORY OF PRESENT ILLNESS: This gentleman is doing just about the same. He still requires Haldol occasionally for agitation. PHYSICAL EXAMINATION: LUNGS: Breath sounds are heard bilaterally. CARDIAC: Normal. ABDOMEN: Soft and nontender. IMPRESSION: 1. Cancer of the lung. 2. Delirium. 3. Sepsis. 4. Pneumonitis. PLAN: No change in program and look into just discharge plan. MMODL / IJN: [id number] /
[2024-12-19 06:16] LABS: Glucose,Whole Blood 149 mg/dL (70-110)
[2024-12-19 08:29] LABS: HGB 12.1 g/dL (13.0-17.0); MCH 29.5 pg (27.0-32.0); MCV 95.1 FL (80.0-97.0); Mean Platelet Volume 11.4 FL (9.5-12.2); NRBC Per 100 WBC 0.03 X 10*3/uL (0.00-0.01); Platelet Count 304 X 10*3/uL (140-440); RDW 17.4 % (11.5-14.5)
[2024-12-19 09:21] LABS: Basophils # (M) 0 X 10*3/uL (0.00-0.10); Eosinophils # (M) 0 X 10*3/uL (0.04-0.35); Metamyelocytes % 1 % (0-0); Monocytes # (M) 2.61 X 10*3/uL (0.20-1.00); Myelocytes % 4 % (0-0); Neutrophils # (M) 13.22 X 10*3/uL (1.80-7.70); Neutrophils % (M) 76 %
[2024-12-19 09:25] VITALS: BMI 22.1
--- NOTE | 2024-12-19 11:37 | P.PN ---
Subjective Progress Note Date: 12/19/24 The patient is seen today December 18, 2024 in follow-up on the selective care unit. He was transferred out of the intensive care unit yesterday. He remains awake and alert. Oriented to person only. hospice community liaison at the bedside. He is maintaining good O2 saturations in the 90s on room air. He has been afebrile. Hemodynamically stable. MRI of the brain revealed no evidence of acute/subacute CVA. There is bilateral parietal lesions which have decreased in size compared to November 08, 2023. White count 15.7. Hemoglobin 11.6. Platelets 308. Sodium 142. Potassium 3.8. Bicarb 27. BUN 41. Creatinine 0.80. Glucose 121. Patient's, Pulmicort and Perforomist inhalations, prednisone taper. Remains on antibiotics in the form of Zosyn. Heparin for DVT prophylaxis. Remains on IV diuretics. Currently in a -330 mL balance. The patient is seen today December 19, 2024 in follow-up to the regular medical floor. He is currently sitting up in a chair. Awake and alert in no acute distress. He is calm and cooperative. No safety trainer at the bedside. He remains on DuoNeb inhalations, Pulmicort and performance inhalations, prednisone taper. Heparin for DVT prophylaxis. Remains on IV diuretics. Remains on Zosyn. Culture was positive for haemophilus influenza nearly 1 month ago. White count 17.4 hemoglobin 12.1. Platelets 304. C-reactive protein 1.30. Currently in a -800 mL balance. Objective - Vital Signs Vital signs: Vital Signs Temp 97.6 F 12/19/24 07:47 Pulse 72 12/19/24 08:53 Resp 17 12/19/24 07:47 BP 112/76 12/19/24 09:04 Pulse Ox 94 L 12/19/24 07:47 FiO2 21 12/17/24 08:08 Intake & Output 12/18/24 12/19/24 12/19/24 18:59 06:59 18:59 Intake Total 2059 Output Total 1899 Balance 160 Weight 69.8 kg Intake: Oral 2059 Output: Urine 1899 Other: Voiding Method External Catheter External Catheter External Catheter ABP, PAP, CO, CI - Last Documented Arterial Blood Pressure 131/85 - Exam GENERAL EXAM: Alert, calm, cooperative 59-year-old male, sitting up in a chair, on room air, in no apparent distress. HEAD: Normocephalic. EYES: Normal reaction of pupils, equal size. NOSE: Clear with pink turbinates. THROAT: No erythema or exudates. Evidence of previous tracheostomy. NECK: No masses, no JVD. CHEST: No chest wall deformity. LUNGS: Equal air entry with lateral scattered rhonchi. CVS: S1 and S2 normal with no audible murmur, regular rhythm. ABDOMEN: No hepatosplenomegaly, normal bowel sounds, no guarding or rigidity. SPINE: No scoliosis or deformity SKIN: No rashes. Superficial ulcerations over the lower extremities. CENTRAL NERVOUS SYSTEM: Oriented to person only, no focal deficits, tone is normal in all 4 extremities. EXTREMITIES: There is no peripheral edema. No clubbing, no cyanosis. Peripheral pulses are intact. - Labs CBC & Chem 7: 12/19/24 05:16 12/18/24 05:15 Labs: Abnormal Lab Results - Last 24 Hours (Table) 12/18/24 12/18/24 12/19/24 Range/Units 16:54 20:52 05:16 WBC 17.40 H (4.50-10.00) X 10*3/uL RBC 4.10 L (4.40-5.60) X 10*6/uL Hgb 12.1 L (13.0-17.0) g/dL Hct 39.0 L (39.6-50.0) % MCHC 31.0 L (32.0-37.0) g/dL RDW 17.4 H (11.5-14.5) % Neutrophils # (Manual) 13.22 H (1.80-7.70) X 10*3/uL Lymphocytes # (Manual) 0.70 L (0.90-5.00) X 10*3/uL Monocytes # (Manual) 2.61 H (0.20-1.00) X 10*3/uL Eosinophils # (Manual) 0 L (0.04-0.35) X 10*3/uL NRBC/100 WBC Diff 0.03 H (0.00-0.01) X 10*3/uL POC Glucose (mg/dL) 211 H 214 H (70-110) mg/dL C-Reactive Protein (0.00-0.80) mg/dL 12/19/24 12/19/24 Range/Units 05:16 06:15 WBC (4.50-10.00) X 10*3/uL RBC (4.40-5.60) X 10*6/uL Hgb (13.0-17.0) g/dL Hct (39.6-50.0) % MCHC (32.0-37.0) g/dL RDW (11.5-14.5) % Neutrophils # (Manual) (1.80-7.70) X 10*3/uL Lymphocytes # (Manual) (0.90-5.00) X 10*3/uL Monocytes # (Manual) (0.20-1.00) X 10*3/uL Eosinophils # (Manual) (0.04-0.35) X 10*3/uL NRBC/100 WBC Diff (0.00-0.01) X 10*3/uL POC Glucose (mg/dL) 149 H (70-110) mg/dL C-Reactive Protein 1.30 H (0.00-0.80) mg/dL Assessment and Plan Assessment: Acute on chronic hypoxic and hypercapnic respiratory failure, requiring intubation and mechanical ventilation shortly after he received Ativan for agitation on the medical floor. Extubated on 11/29/2024. Recovered and on room air oxygen Haemophilus influenza pneumonia, in the setting of acute influenza A infection/superimposed bacterial pneumonia Acute influenza A infection Elevated troponins, possibly secondary to supply/demand mismatch Ongoing fluctuation in mental status/delirium, weakness and episodes of confusion Atrial fibrillation with controlled ventricular response. 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 Most recently treated with Tecentriq. CAT scan of the chest done on 11/18/2024 shows no evidence of any residual tumor or tumor progression. History of metastatic brain lesions. 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 MRI of the brain December 17, 2024 revealed bilateral parietal lesions which have decreased in size compared to November 08, 2023. History of seizures, maintained on Keppra Chronic metabolic encephalopathy, multifactorial mostly with chronic hypercapnia Hypertension Striae of polysubstance abuse Olecranon bursitis, wound culture positive for methicillin-resistant Staphylococcus aureus. The patient was treated with vancomycin Plan: The patient was seen and evaluated Labs and medications reviewed Currently stable and on room air oxygen Remains on bronchodilators, steroids Discontinue Pulmicort and Perforomist Add Symbicort Will discontinue IV diuretics Add Lasix 20 mg p.o. twice daily Heparin for DVT prophylaxis Continued on Zosyn per ID service Calm and cooperative without a safety trainer May be transferred to [facility] This patient was seen independently by the pulmonary nurse practitioner addressing pulmonary issues I have personally seen and examined the patient, performed the documentation and the assessment and plan as written. Number of minutes spent on the visit: 23 Dictation was produced using [employer] dictation software. Please excuse any grammatical, word or spelling errors.
[2024-12-19 11:52] LABS: Glucose,Whole Blood 184 mg/dL (70-110)
--- NOTE | 2024-12-19 14:42 | P.PN ---
Subjective Progress Note Date: 12/19/24 Principal diagnosis: Reason for follow-up is left elbow septic olecranon bursitis/haemophilus pneumonia Patient is a 59-year-old male with a past medical history significant for hypertension seizure disorder atrial fibrillation he did have a metastatic lung cancer has been brought to the hospital for worsening swelling to the left elbow with a culture positive for MRSA concerning for septic olecranon bursitis. On today's evaluation that is 12/19/2024,the patient remains to be afebrile, patient is on room air not requiring supplemental oxygen and denies any shortn ess of breath no chest pain or cough.Patient denies having any nausea or vomiting, no abdominal pain and no diarrhea has been reported White count 17.40 Objective - Vital Signs Vital signs: Vital Signs Temp 97.6 F 12/19/24 07:47 Pulse 88 12/19/24 13:27 Resp 17 12/19/24 07:47 BP 112/76 12/19/24 09:04 Pulse Ox 94 L 12/19/24 07:47 FiO2 21 12/17/24 08:08 Intake & Output 12/18/24 12/19/24 12/19/24 18:59 06:59 18:59 Intake Total 2059 Output Total 1899 Balance 160 Weight 69.8 kg Intake: Oral 2059 Output: Urine 0 Other: Voiding Method External Catheter External Catheter External Catheter ABP, PAP, CO, CI - Last Documented Arterial Blood Pressure 131/85 - Exam GENERAL DESCRIPTION: Middle-age male lying in bed in no distress RESPIRATORY SYSTEM: Unlabored breathing , decreased breath sounds at bases HEART: S1 S2 regular rate and rhythm , ABDOMEN: Soft , no tenderness EXTREMITIES: No edema feet - Labs CBC & Chem 7: 12/19/24 05:16 12/18/24 05:15 Labs: Abnormal Lab Results - Last 24 Hours (Table) 12/18/24 12/18/24 12/19/24 Range/Units 16:54 20:52 05:16 WBC 17.40 H (4.50-10.00) X 10*3/uL RBC 4.10 L (4.40-5.60) X 10*6/uL Hgb 12.1 L (13.0-17.0) g/dL Hct 39.0 L (39.6-50.0) % MCHC 31.0 L (32.0-37.0) g/dL RDW 17.4 H (11.5-14.5) % Neutrophils # (Manual) 13.22 H (1.80-7.70) X 10*3/uL Lymphocytes # (Manual) 0.70 L (0.90-5.00) X 10*3/uL Monocytes # (Manual) 2.61 H (0.20-1.00) X 10*3/uL Eosinophils # (Manual) 0 L (0.04-0.35) X 10*3/uL NRBC/100 WBC Diff 0.03 H (0.00-0.01) X 10*3/uL POC Glucose (mg/dL) 211 H 214 H (70-110) mg/dL C-Reactive Protein (0.00-0.80) mg/dL 12/19/24 12/19/24 12/19/24 Range/Units 05:16 06:15 11:48 WBC (4.50-10.00) X 10*3/uL RBC (4.40-5.60) X 10*6/uL Hgb (13.0-17.0) g/dL Hct (39.6-50.0) % MCHC (32.0-37.0) g/dL RDW (11.5-14.5) % Neutrophils # (Manual) (1.80-7.70) X 10*3/uL Lymphocytes # (Manual) (0.90-5.00) X 10*3/uL Monocytes # (Manual) (0.20-1.00) X 10*3/uL Eosinophils # (Manual) (0.04-0.35) X 10*3/uL NRBC/100 WBC Diff (0.00-0.01) X 10*3/uL POC Glucose (mg/dL) 149 H 184 H (70-110) mg/dL C-Reactive Protein 1.30 H (0.00-0.80) mg/dL Assessment and Plan (1) Septic olecranon bursitis of left elbow Current Visit: Yes Status: Acute Code(s): M71.122 - OTHER INFECTIVE BURSITIS, LEFT ELBOW SNOMED Code(s): 1713718474842623 (2) Allergy to cephalosporin Current Visit: No Status: Acute Code(s): Z88.1 - ALLERGY STATUS TO OTHER ANTIBIOTIC AGENTS SNOMED Code(s): 923808393 (3) MRSA (methicillin resistant Staphylococcus aureus) infection Current Visit: Yes Status: Acute Code(s): A49.02 - METHICILLIN RESIS STAPH INFECTION, UNSP SITE SNOMED Code(s): 336230430 (4) Influenza A Current Visit: Yes Status: Acute Code(s): J10.1 - FLU DUE TO OTH IDENT INF LUENZA VIRUS W OTH RESP MANIFEST SNOMED Code(s): 071538246 (5) Pneumonia Current Visit: No Status: Acute Code(s): J18.9 - PNEUMONIA, UNSPECIFIED ORGANISM SNOMED Code(s): 859289102 (6) Leukocytosis Current Visit: No Status: Acute Code(s): D72.829 - ELEVATED WHITE BLOOD CELL COUNT, UNSPECIFIED SNOMED Code(s): 895101943 Plan: 1patient being admitted to the hospital for left elbow pain swelling redness he did have a wound with a culture positive for MRSA in the outpatient setting now with concern for left elbow septic olecranon bursitis for the patient received adequate IV vancomycin and did have healing of his left elbow ulcer/olecranon bursitis. 2patient with influenza A for which the patient has completed 5-day course of Tamiflu 3patient is afebrile white count is elevated questionably steroid related for possible oropharyngeal candidiasis, has been started on Diflucan yesterday we will see response has received adequate Zosyn pneumonia and will not need any IV antibiotics on discharge Dictation was produced using [employer] dictation software. please excuse any grammatical, word or spelling errors. Time with Patient: Less than 30
[2024-12-19 16:35] LABS: Glucose,Whole Blood 240 mg/dL (70-110)
[2024-12-19 20:35] LABS: Glucose,Whole Blood 246 mg/dL (70-110)
--- NOTE | 2024-12-20 01:31 | PN ---
PROGRESS NOTE DATE OF SERVICE: 12/19/2024 CHIEF COMPLAINT: Encephalopathy. HISTORY OF PRESENT ILLNESS: This gentleman is doing just about the same. He may be going to [facility] today. PHYSICAL EXAMINATION: GENERAL: He remains lethargic and confused. He is chronically ill in appearance. He is slightly cyanotic. CHEST: Demonstrates shallow breath sounds bilaterally. CARDIAC: Normal. IMPRESSION: 1. Encephalopathy. 2. Carcinoma of the lung. 3. History of sepsis. PLAN: Possibly discharge to [facility] today. MMODL / IJN: [id number] /
[2024-12-20 06:22] LABS: Glucose,Whole Blood 167 mg/dL (70-110)
[2024-12-20 11:30] LABS: Glucose,Whole Blood 357 mg/dL (70-110)
--- NOTE | 2024-12-20 12:17 | PN ---
PROGRESS NOTE DATE OF SERVICE: 12/20/2024 CHIEF COMPLAINT: Anoxic brain injury. HISTORY OF PRESENT ILLNESS: This gentleman is stable. He was supposed to have gone to [facility] yesterday. PHYSICAL EXAMINATION: LUNGS: Breath sounds are heard bilaterally. CARDIAC: Normal. GENERAL: He remains very lethargic. IMPRESSION: 1. Status post pneumonitis with sepsis. 2. Carcinoma of the lung. PLAN: Await discharge orders. MMODL / IJN: [id number] /
--- NOTE | 2024-12-20 13:11 | P.PN ---
Subjective Progress Note Date: 12/20/24 The patient is seen today December 18, 2024 in follow-up on the selective care unit. He was transferred out of the intensive care unit yesterday. He remains awake and alert. Oriented to person only. metal tester at the bedside. He is maintaining good O2 saturations in the 90s on room air. He has been afebrile. Hemodynamically stable. MRI of the brain revealed no evidence of acute/subacute CVA. There is bilateral parietal lesions which have decreased in size compared to November 08, 2023. White count 15.7. Hemoglobin 11.6. Platelets 308. Sodium 142. Potassium 3.8. Bicarb 27. BUN 41. Creatinine 0.80. Glucose 121. Patient's, Pulmicort and Perforomist inhalations, prednisone taper. Remains on antibiotics in the form of Zosyn. Heparin for DVT prophylaxis. Remains on IV diuretics. Currently in a -330 mL balance. The patient is seen today December 19, 2024 in follow-up to the regular medical floor. He is currently sitting up in a chair. Awake and alert in no acute distress. He is calm and cooperative. No fire safety manager at the bedside. He remains on DuoNeb inhalations, Pulmicort and performance inhalations, prednisone taper. Heparin for DVT prophylaxis. Remains on IV diuretics. Remains on Zosyn. Culture was positive for haemophilus influenza nearly 1 month ago. White count 17.4 hemoglobin 12.1. Platelets 304. C-reactive protein 1.30. Currently in a -800 mL balance. The patient is seen today December 20, 2024 in follow-up on the regular medical floor. He is awake and alert in no acute distress. Calm and cooperative. He is sitting up in a chair at the bedside. He denies any worsening shortness of breath, cough or congestion. He is maintaining good O2 saturations in the 90s on room air. Glucose 167. He remains on DuoNeb inhalations, Pulmicort and Perforomist inhalations, prednisone taper. He remains on antibiotics in the form of Zosyn per ID service. Heparin for DVT prophylaxis. Remains on IV diuretics. Currently in the -2.5 L balance. Objective - Vital Signs Vital signs: Vital Signs Temp 97.6 F 12/20/24 07:49 Pulse 80 12/20/24 11:52 Resp 20 12/20/24 07:49 BP 103/68 12/20/24 07:49 Pulse Ox 95 12/20/24 07:49 FiO2 21 12/17/24 08:08 Intake & Output 12/19/24 12/20/24 12/20/24 18:59 06:59 18:59 Intake Total 740 580 Output Total 1250 2000 1100 Balance -510 -1999 -520 Weight 69.8 kg Intake: IV 100 Piperacillin-Tazobactam 3 100 .375 gm In Sodium Chloride 0.9% 100 ml @ 25 mls/hr IVPB Q8H CLARA Rx#: [id number] Intake, IV Titration 100 Amount Piperacillin-Tazobactam 3 100 .375 gm In Sodium Chloride 0.9% 100 ml @ 25 mls/hr IVPB Q8H CLARA Rx#: [id number] Oral 640 480 Output: Urine 1250 1999 1100 Other: Voiding Method External Catheter External Catheter External Catheter # Bowel Movements 1 ABP, PAP, CO, CI - Last Documented Arterial Blood Pressure 131/85 - Exam GENERAL EXAM: Alert, calm, 59-year-old male, up in a chair, on room air, in no apparent distress. HEAD: Normocephalic. EYES: Normal reaction of pupils, equal size. NOSE: Clear with pink turbinates. THROAT: No erythema or exudates. Evidence of previous tracheostomy. NECK: No masses, no JVD. CHEST: No chest wall deformity. LUNGS: Equal air entry with bilateral scattered rhonchi. CVS: S1 and S2 normal with no audible murmur, regular rhythm. ABDOMEN: No hepatosplenomegaly, normal bowel sounds, no guarding or rigidity. SPINE: No scoliosis or deformity SKIN: No rashes. Superficial ulcerations over the lower extremities. CENTRAL NERVOUS SYSTEM: Oriented to person only, no focal deficits, tone is normal in all 4 extremities. EXTREMITIES: There is no peripheral edema. No clubbing, no cyanosis. Peripheral pulses are intact. - Labs CBC & Chem 7: 12/19/24 05:16 12/18/24 05:15 Labs: Abnormal Lab Results - Last 24 Hours (Table) 12/19/24 12/19/24 12/20/24 Range/Units 16:33 20:34 06:21 POC Glucose (mg/dL) 240 H 246 H 167 H (70-110) mg/dL 12/20/24 Range/Units 11:29 POC Glucose (mg/dL) 357 H (70-110) mg/dL Assessment and Plan Assessment: Acute on chronic hypoxic and hypercapnic respiratory failure, requiring intubation and mechanical ventilation shortly after he received Ativan for agitation on the medical floor. Extubated on 11/29/2024. Recovered and on room air oxygen Haemophilus influenza pneumonia, in the setting of acute influenza A infection/superimposed bacterial pneumonia. Acute influenza A infection Atrial fibrillation with controlled ventricular response. 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 Most recently treated with Tecentriq. CAT scan of the chest done on 11/18/2024 shows no evidence of any residual tumor or tumor progression. History of metastatic brain lesions. 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 MRI of the brain December 17, 2024 revealed bilateral parietal lesions which have decreased in size compared to November 08, 2023. History of seizures, maintained on Keppra Chronic metabolic encephalopathy, multifactorial mostly with chronic hypercapnia Hypertension Striae of polysubstance abuse Olecranon bursitis, wound culture positive for methicillin-resistant Staphylococcus aureus. The patient was treated with vancomycin Plan: The patient was seen and evaluated Labs and medications reviewed Currently stable and on room air oxygen Continue DuoNeb inhalations Decrease prednisone to 30 mg daily, continue taper Discontinue Pulmicort and Perforomist Add Symbicort Will discontinue IV diuretics Add Lasix 20 mg p.o. twice daily Discontinue IV Diamox Add Diamox 250 p.o. twice daily Heparin for DVT prophylaxis Continued on Zosyn per ID service Calm and cooperative without a fire safety manager Cleared for discharge from the pulmonary standpoint May be transferred to [facility] This patient was seen independently by the pulmonary nurse practitioner addressing pulmonary issues I have personally seen and examined the patient, performed the documentation and the assessment and plan as written. Number of minutes spent on the visit: 25 Dictation was produced using [employer] dictation software. Please excuse any grammatical, word or spelling errors.
--- NOTE | 2024-12-20 15:13 | P.PN ---
Subjective Progress Note Date: 12/20/24 Principal diagnosis: Reason for follow-up is left elbow septic olecranon bursitis/haemophilus pneumonia Patient is a 59-year-old male with a past medical history significant for hypertension seizure disorder atrial fibrillation he did have a metastatic lung cancer has been brought to the hospital for worsening swelling to the left elbow with a culture positive for MRSA concerning for septic olecranon bursitis. On today's evaluation that is 12/20/2024, the patient continues to be afebrile, the patient is on room air and breathing comfortably, the Pt does not seem to be any distress is currently sleepy did not provide any history no diarrhea or any change reported by the nursing staff. No new labs has been obtained today Objective - Vital Signs Vital signs: Vital Signs Temp 97.6 F 12/20/24 07:49 Pulse 80 12/20/24 11:52 Resp 12/20/24 07:49 BP 103/68 12/20/24 07:49 Pulse Ox 95 12/20/24 07:49 FiO2 12/17/24 08:08 Intake & Output 12/19/24 12/20/24 12/20/24 18:59 06:59 18:59 Intake Total 740 580 Output Total 1250 1999 1100 Balance -510 -1999 -520 Weight 69.8 kg Intake: IV 100 Piperacillin-Tazobactam 3 100 .375 gm In Sodium Chloride 0.9% 100 ml @ 25 mls/hr IVPB Q8H [facility]ARA Rx#: [id number] Intake, IV Titration 100 Amount Piperacillin-Tazobactam 3 100 .375 gm In Sodium Chloride 0.9% 100 ml @ 25 mls/hr IVPB Q8H CLARA Rx#: [id number] Oral 640 480 Output: Urine 1250 1999 1100 Other: Voiding Method External Catheter External Catheter External Catheter # Bowel Movements 1 ABP, PAP, CO, CI - Last Documented Arterial Blood Pressure 131/85 - Exam GENERAL DESCRIPTION: Middle-age male lying in bed in no distress RESPIRATORY SYSTEM: Unlabored breathing , decreased breath sounds at bases HEART: S1 S2 regular rate and rhythm , ABDOMEN: Soft , no tenderness EXTREMITIES: No edema feet - Labs CBC & Chem 7: 12/19/24 05:16 12/18/24 05:15 Labs: Abnormal Lab Results - Last 24 Hours (Table) 0312/19/24 12/20/24 Range/Units 16:33 20:34 06:21 POC Glucose (mg/dL) 240 H 246 H 167 H (70-110) mg/dL 12/20/24 Range/Units 11:29 POC Glucose (mg/dL) 357 H (70-110) mg/dL Assessment and Plan (1) Septic olecranon bursitis of left elbow Current Visit: Yes Status: Acute Code(s): M71.122 - OTHER INFECTIVE BURSITIS, LEFT ELBOW SNOMED Code(s): 6027387893205156 (2) Allergy to cephalosporin Current Visit: No Status: Acute Code(s): Z88.1 - ALLERGY STATUS TO OTHER ANTIBIOTIC AGENTS SNOMED Code(s): 567482524 (3) MRSA (methicillin resistant Staphylococcus aureus) infection Current Visit: Yes Status: Acute Code(s): A49.02 - METHICILLIN RESIS STAPH I NFECTION, UNSP SITE SNOMED Code(s): 984631522 (4) Influenza A Current Visit: Yes Status: Acute Code(s): J10.1 - FLU DUE TO OTH IDENT INFLUENZA VIRUS W OTH RESP MANIFEST SNOMED Code(s): 626315051 (5) Pneumonia Current Visit: No Status: Acute Code(s): J18.9 - PNEUMONIA, UNSPECIFIED ORGANISM SNOMED Code(s): 508523554 (6) Leukocytosis Current Visit: No Status: Acute Code(s): D72.829 - ELEVATED WHITE BLOOD CELL COUNT, UNSPECIFIED SNOMED Code(s): 812735244 Plan: 1patient being admitted to the hospital for left elbow pain swelling redness he did have a wound with a culture positive for MRSA in the outpatient setting now with concern for left elbow septic olecranon bursitis for the patient received adequate IV vancomycin and did have healing of his left elbow ulcer/olecranon bursitis. 2patient with influenza A for which the patient has completed 5-day course of Tamiflu 3patient is afebrile white count is elevated questionably steroid related for possible oropharyngeal candidiasis,, patient has been started on Diflucan will repeat a CBC and if white count is trending down Zosyn can be discontinued at that point Dictation was produced using [employer] software. please excuse any grammatical, word or spelling errors.
[2024-12-20] MEDS: FUROSEMIDE 10 MG TAB PO SCH (15:37)
[2024-12-20] MEDS: FUROSEMIDE 20 MG TAB PO SCH (16:27)
[2024-12-20 17:11] LABS: Glucose,Whole Blood 235 mg/dL (70-110)
[2024-12-20] MEDS: SYMBICORT 160-4.5 MCG INHALER INHALATION SCH (20:03)
[2024-12-20 21:11] LABS: Glucose,Whole Blood 245 mg/dL (70-110)
[2024-12-20] MEDS: acetaZOLAMIDE 250 MG TAB PO SCH (22:48)
[2024-12-21 03:43] LABS: Anisocytosis Slight; HCT 40.3 % (39.0-53.0); HGB 12.4 gm/dL (13.0-17.5); Hypochromasia Marked; MCH 28.9 pg (25.0-35.0); MCHC 30.7 g/dL (31.0-37.0); MCV 94.3 fL (80.0-100.0); Mean Platelet Volume 8.2; Platelet Count 251 k/uL (150-450); RBC 4.27 m/uL (4.30-5.90); RDW 17.2 % (11.5-15.5)
[2024-12-21 04:59] LABS: ALT 21 U/L (4-49); AST 22 U/L (17-59); African American GFR (CKD) >90 (>60 ml/min/1.73 sqM); Albumin 3.1 g/dL (3.5-5.0); Albumin/Globulin Ratio 1.2; Alkaline Phosphatase 80 U/L (38-126); Anion Gap 8 mmol/L; Blood Urea Nitrogen 35 mg/dL (9-20); C Reactive Protein 0.8 mg/dL (<1.0); Calcium 8.7 mg/dL (8.4-10.2); Carbon Dioxide 24 mmol/L (22-30); Chloride 104 mmol/L (98-107); Globulin 2.5 g/dL; Glucose 94 mg/dL (74-99); Non-African American GFR(CKD) >90 (>60 ml/min/1.73 sqM); Potassium 4.1 mmol/L (3.5-5.1); Sodium 136 mmol/L (137-145); Total Bilirubin 0.4 mg/dL (0.2-1.3); Total Protein 5.6 g/dL (6.3-8.2)
[2024-12-21 05:31] LABS: Eosinophils # (M) 0.22 k/uL (0-0.7); Lymphocytes # (M) 3.08 k/uL (1.0-4.8); Metamyelocytes # (M) 0.22 k/uL (0); Metamyelocytes % 1 %; Monocytes # (M) 1.54 k/uL (0-1.0); Neutrophils # (M) 17.16 k/uL (1.3-7.7); Neutrophils % (M) 78 %; Nucleated Red Blood Cells 0 /100 WBC (0-0); Total Cells Counted 200
[2024-12-21 06:29] LABS: Glucose,Whole Blood 44 mg/dL (70-110)
[2024-12-21 07:23] LABS: Glucose,Whole Blood 133 mg/dL (70-110)
[2024-12-21] MEDS: predniSONE 10 MG TAB PO SCH (07:58)
--- NOTE | 2024-12-21 11:05 | P.PN ---
Subjective Progress Note Date: 12/21/24 The patient is seen today December 18, 2024 in follow-up on the selective care unit. He was transferred out of the intensive care unit yesterday. He remains awake and alert. Oriented to person only. 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 He is maintaining good O2 saturations in the 90s on room air. He has been afebrile. Hemodynamically stable. MRI of the brain revealed no evidence of acute/subacute CVA. There is bilateral parietal lesions which have decreased in size compared to November 08, 2023. White count 15.7. Hemoglobin 11.6. Platelets 308. Sodium 142. Potassium 3.8. Bicarb 27. BUN 41. Creatinine 0.80. Glucose 121. Patient's, Pulmicort and Perforomist inhalations, prednisone taper. Remains on antibiotics in the form of Zosyn. Heparin for DVT prophylaxis. Remains on IV diuretics. Currently in a -330 mL balance. The patient is seen today December 19, 2024 in follow-up to the regular medical floor. He is currently sitting up in a chair. Awake and alert in no acute distress. He is calm and cooperative. No chief of safety and protection at the bedside. He remains on DuoNeb inhalations, Pulmicort and performance inhalations, prednisone taper. Heparin for DVT prophylaxis. Remains on IV diuretics. Remains on Zosyn. Culture was positive for haemophilus influenza nearly 1 month ago. White count 17.4 hemoglobin 12.1. Platelets 304. C-reactive protein 1.30. Currently in a -800 mL balance. The patient is seen today December 20, 2024 in follow-up on the regular medical floor. He is awake and alert in no acute distress. Calm and cooperative. He is sitting up in a chair at the bedside. He denies any worsening shortness of breath, cough or congestion. He is maintaining good O2 saturations in the 90s on room air. Glucose 167. He remains on DuoNeb inhalations, Pulmicort and Perforomist inhalations, prednisone taper. He remains on antibiotics in the form of Zosyn per ID service. Heparin for DVT prophylaxis. Remains on IV diuretics. Currently in the -2.5 L balance. The patient is seen today December 21, 2024 in follow-up on the regular medical floor. He is sitting up in bed. Awake and alert in no acute distress. He is calm and cooperative. He denies any worsening shortness of breath, cough or congestion. He is maintaining good O2 saturations in the 90s on room air. He has been afebrile. Hemodynamically stable. Globin 12.4. Platelets 251. Sodium 136. Potassium 4.1. Bicarb 24. BUN 35. Creatinine 0.86. Glucose 94. Procalcitonin negative at 0.12. Remains on Diflucan and Zosyn per ID service. He is continued on DuoNeb inhalations, Symbicort, prednisone taper. Heparin for DVT prophylaxis. Remains on oral diuretics. Oral Diamox. Currently in a -1.2 L balance. Objective - Vital Signs Vital signs: Vital Signs Temp 97.4 F L 12/21/24 07:34 Pulse 84 12/21/24 08:43 Resp 18 12/21/24 07:34 BP 104/71 12/21/24 07:34 Pulse Ox 94 L 12/21/24 07:34 FiO2 21 12/17/24 08:08 Intake & Output 12/20/24 12/21/24 12/21/24 18:59 06:59 18:59 Intake Total 1060 1900 200 Output Total 1625 2550 Balance -565 -650 200 Intake: Intake, IV Titration 100 Amount Piperacillin-Tazobactam 3 100 .375 gm In Sodium Chloride 0.9% 100 ml @ 25 mls/hr IVPB Q8H [facility] Rx#: [id number] Oral 960 1900 200 Output: Urine 1625 2550 Other: Voiding Method External Catheter External Catheter # Bowel Movements 1 ABP, PAP, CO, CI - Last Documented Arterial Blood Pressure 131/85 - Exam GENERAL EXAM: Alert, calm, 59-year-old male, resting in bed, on room air, in no apparent distress. HEAD: Normocephalic. EYES: Normal reaction of pupils, equal size. NOSE: Clear with pink turbinates. THROAT: No erythema or exudates. Evidence of previous tracheostomy. NECK: No masses, no JVD. CHEST: No chest wall deformity. LUNGS: Equal air entry with no crackles, wheeze or rhonchi. CVS: S1 and S2 normal with no audible murmur, regular rhythm. ABDOMEN: No hepatosplenomegaly, normal bowel sounds, no guarding or rigidity. SPINE: No scoliosis or deformity SKIN: No rashes. Superficial ulcerations over the lower extremities. CENTRAL NERVOUS SYSTEM: Oriented to person only, no focal deficits, tone is normal in all 4 extremities. EXTREMITIES: There is no peripheral edema. No clubbing, no cyanosis. Peripheral pulses are intact. - Labs CBC & Chem 7: 12/21/24 02:59 12/21/24 02:59 Labs: Abnormal Lab Results - Last 24 Hours (Table) 12/20/24 12/20/24 12/20/24 Range/Units 11:29 17:10 21:09 WBC (3.8-10.6) k/uL RBC (4.30-5.90) m/uL Hgb (13.0-17.5) gm/dL MCHC (31.0-37.0) g/dL RDW (11.5-15.5) % Neutrophils # (Manual) (1.3-7.7) k/uL Monocytes # (Manual) (0-1.0) k/uL Metamyelocytes # (Man) (0) k/uL Sodium (137-145) mmol/L BUN (9-20) mg/dL POC Glucose (mg/dL) 357 H 235 H 245 H (70-110) mg/dL Total Protein (6.3-8.2) g/dL Albumin (3.5-5.0) g/dL 12/21/24 12/21/24 12/21/24 Range/Units 02:59 02:59 06:27 WBC 22.0 H (3.8-10.6) k/uL RBC 4.27 L (4.30-5.90) m/uL Hgb 12.4 L (13.0-17.5) gm/dL MCHC 30.7 L (31.0-37.0) g/dL RDW 17.2 H (11.5-15.5) % Neutrophils # (Manual) 17.16 H (1.3-7.7) k/uL Monocytes # (Manual) 1.54 H (0-1.0) k/uL Metamyelocytes # (Man) 0.22 H (0) k/uL Sodium 136 L (137-145) mmol/L BUN 35 H (9-20) mg/dL POC Glucose (mg/dL) 44 L* (70-110) mg/dL Total Protein 5.6 L (6.3-8.2) g/dL Albumin 3.1 L (3.5-5.0) g/dL 12/21/24 Range/Units 07:22 WBC (3.8-10.6) k/uL RBC (4.30-5.90) m/uL Hgb (13.0-17.5) gm/dL MCHC (31.0-37.0) g/dL RDW (11.5-15.5) % Neutrophils # (Manual) (1.3-7.7) k/uL Monocytes # (Manual) (0-1.0) k/uL Metamyelocytes # (Man) (0) k/uL Sodium (137-145) mmol/L BUN (9-20) mg/dL POC Glucose (mg/dL) 133 H (70-110) mg/dL Total Protein (6.3-8.2) g/dL Albumin (3.5-5.0) g/dL Assessment and Plan Assessment: Acute on chronic hypoxic and hypercapnic respiratory failure, requiring intubation and mechanical ventilation shortly after he received Ativan for agitation on the medical floor. Extubated on 11/29/2024. Recovered and on room air oxygen Haemophilus influenza pneumonia, in the setting of acute influenza A infection/superimposed bacterial pneumonia. Remains on Zosyn per ID service. Procalcitonin 0.12 Acute influenza A infection, completed Tamiflu Atrial fibrillation with controlled ventricular response. 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 Most recently treated with Tecentriq. CAT scan of the chest done on 11/18/2024 shows no evidence of any residual tumor or tumor progression History of metastatic brain lesions. 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 MRI of the brain December 17, 2024 revealed bilateral parietal lesions which have decreased in size compared to November 08, 2023 History of seizures, maintained on Keppra Chronic metabolic encephalopathy, multifactorial mostly with chronic hypercapnia Hypertension Striae of polysubstance abuse Olecranon bursitis, wound culture positive for methicillin-resistant Staphylococcus aureus. The patient was treated with vancomycin Plan: The patient was seen and evaluated Labs and medications reviewed Currently stable and on room air oxygen Continue DuoNeb inhalations Continue Symbicort Continue prednisone taper Continue oral Lasix Continue oral Diamox Heparin for DVT prophylaxis Continued on Diflucan and Zosyn per ID service Calm and cooperative without a chief of safety and protection Cleared for discharge from the pulmonary standpoint May be transferred to [facility] or discharged home with his sister This patient was seen independently by the pulmonary nurse practitioner addressing pulmonary issues I have personally seen and examined the patient, performed the documentation and the assessment and plan as written. Number of minutes spent on the visit: 23 Dictation was produced using [employer] dictation software. Please excuse any grammatical, word or spelling errors.
[2024-12-21 12:00] LABS: Glucose,Whole Blood 288 mg/dL (70-110)
--- NOTE | 2024-12-21 15:06 | P.PN ---
Subjective Progress Note Date: 12/21/24 Principal diagnosis: Reason for follow-up is left elbow septic olecranon bursitis/haemophilus pneumonia Patient is a 59-year-old male with a past medical history significant for hypertension seizure disorder atrial fibrillation he did have a metastatic lung cancer has been brought to the hospital for worsening swelling to the left elbow with a culture positive for MRSA concerning for septic olecranon bursitis. On today's evaluation that is 12/21/2024, patient did not have any fever and is currently breathing comfortably on room air patient was sleepy did not answer any question no vomiting diarrhea or any other changes reported. Patient white count is up to 22,000 creatinine 0.86, procalcitonin is 0.12 Objective - Vital Signs Vital signs: Vital Signs Temp 98.2 F 12/21/24 14:00 Pulse 76 12/21/24 14:00 Resp 16 12/21/24 14:00 BP 94/56 12/21/24 14:00 Pulse Ox 96 12/21/24 14:00 FiO2 21 12/17/24 08:08 Intake & Output 12/20/24 12/21/24 12/21/24 18:59 06:59 18:59 Intake Total 1060 1900 400 Output Total 1625 2550 1201 Balance -646 -558 -886 Intake: Intake, IV Titration 100 Amount Piperacillin-Tazobactam 3 100 .375 gm In Sodium Chloride 0.9% 100 ml @ 25 mls/hr IVPB Q8H [facility] Rx#: [id number] Oral 960 1900 400 Output: Urine 1625 2550 1200 Stool 1 Other: Voiding Method External Catheter External Catheter External Catheter # Bowel Movements 1 2 ABP, PAP, CO, CI - Last Documented Arterial Blood Pressure 131/85 - Exam GENERAL DESCRIPTION: Middle-age male lying in bed in no distress RESPIRATORY SYSTEM: Unlabored breathing , decreased breath sounds at bases HEART: S1 S2 regular rate and rhythm , ABDOMEN: Soft , no tenderness EXTREMITIES: No edema feet - Labs CBC & Chem 7: 12/21/24 02:59 12/21/24 02:59 Labs: Abnormal Lab Results - Last 24 Hours (Table) 12/20/24 12/20/24 12/21/24 Range/Units 17:10 21:09 02:59 WBC 22.0 H (3.8-10.6) k/uL RBC 4.27 L (4.30-5.90) m/uL Hgb 12.4 L (13.0-17.5) gm/dL MCHC 30.7 L (31.0-37.0) g/dL RDW 17.2 H (11.5-15.5) % Neutrophils # (Manual) 17.16 H (1.3-7.7) k/uL Monocytes # (Manual) 1.54 H (0-1.0) k/uL Metamyelocytes # (Man) 0.22 H (0) k/uL Sodium (137-145) mmol/L BUN (9-20) mg/dL POC Glucose (mg/dL) 235 H 245 H (70-110) mg/dL Total Protein (6.3-8.2) g/dL Albumin (3.5-5.0) g/dL 12/21/24 12/21/24 12/21/24 Range/Units 02:59 06:27 07:22 WBC (3.8-10.6) k/uL RBC (4.30-5.90) m/uL Hgb (13.0-17.5) gm/dL MCHC (31.0-37.0) g/dL RDW (11.5-15.5) % Neutrophils # (Manual) (1.3-7.7) k/uL Monocytes # (Manual) (0-1.0) k/uL Metamyelocytes # (Man) (0) k/uL Sodium 136 L (137-145) mmol/L BUN 35 H (9-20) mg/dL POC Glucose (mg/dL) 44 L* 133 H (70-110) mg/dL Total Protein 5.6 L (6.3-8.2) g/dL Albumin 3.1 L (3.5-5.0) g/dL 12/21/24 Range/Units 11:58 WBC (3.8-10.6) k/uL RBC (4.30-5.90) m/uL Hgb (13.0-17.5) gm/dL MCHC (31.0-37.0) g/dL RDW (11.5-15.5) % Neutrophils # (Manual) (1.3-7.7) k/uL Monocytes # (Manual) (0-1.0) k/uL Metamyelocytes # (Man) (0) k/uL Sodium (137-145) mmol/L BUN (9-20) mg/dL POC Glucose (mg/dL) 288 H (70-110) mg/dL Total Protein (6.3-8.2) g/dL Albumin (3.5-5.0) g/dL Assessment and Plan (1) Septic olecranon bursitis of left elbow Current Visit: Yes Status: Acute Code(s): M71.122 - OTHER INFECTIVE BURSITIS, LEFT ELBOW SNOMED Code(s): 4824921350926173 (2) Allergy to cephalosporin Current Visit: No Status: Acute Code(s): Z88.1 - ALLERGY STATUS TO OTHER ANTIBIOTIC AGENTS SNOMED Code(s): 180986092 (3) MRSA (methicillin resistant Staphylococcus aureus) infection Current Visit: Yes Status: Acute Code(s): A49.02 - METHICILLIN RESIS STAPH INFECTION, UNSP SITE SNOMED Code(s): 926806329 (4) Influenza A Current Visit: Yes Status: Acute Code(s): J10.1 - FLU DUE TO OTH IDENT INFLUENZA VIRUS W OTH RESP MANIFEST SNOMED Code(s): 027039071 (5) Pneumonia Current Visit: No Status: Acute Code(s): J18.9 - PNEUMONIA, UNSPECIFIED ORGANISM SNOMED Code(s): 186911566 (6) Leukocytosis Current Visit: No Status: Acute Code(s): D72.829 - ELEVATED WHITE BLOOD CELL COUNT, UNSPECIFIED SNOMED Code(s): 563337614 Plan: 1patient being admitted to the hospital for left elbow pain swelling redness he did have a wound with a culture positive for MRSA in the outpatient setting now with concern for left elbow septic olecranon bursitis for the patient received adequate IV vancomycin and did have healing of his left elbow ulcer/olecranon bursitis. 2patient with influenza A for which the patient has completed 5-day course of Tamiflu 3patient is afebrile did have worsening of his leukocytosis however his procalcitonin is normal questionably steroid related versus thrush he is covered with the Diflucan will repeat a chest x-ray and monitor clinical course closely Dictation was produced using dragon dictation software. please excuse any grammatical, word or spelling errors. Time with Patient: Less than 30
--- NOTE | 2024-12-21 15:50 | XR ---
EXAMINATION TYPE: XR chest 2V DATE OF EXAM: 12/21/2024 3:40 PM COMPARISON: 12/15/2024 CLINICAL INDICATION: Male, 59 years old with history of Pneumonia: Shortness of breath TECHNIQUE: XR chest 2V views of the chest are obtained. FINDINGS: Scattered senescent parenchymal changes noted. Hyperinflation compatible with COPD. Infiltrate seen previously demonstrates significant interval improvement of only mild residual seen w ithin the left upper lobe. Heart size is stable. Mediastinal structures are stable and grossly unremarkable. No evidence for hilar prominence. Degenerative changes dorsal spine. IMPRESSION: 1. Infiltrate seen previously demonstrates significant interval improvement of only mild residual see n within the left upper lobe. [facility], , 12/21/2024 3:48 PM
[2024-12-21 16:51] LABS: Glucose,Whole Blood 244 mg/dL (70-110)
--- NOTE | 2024-12-21 20:21 | PN ---
PROGRESS NOTE DATE OF SERVICE: 12/21/2024 I am covering for Dr. Byers. SUBJECTIVE: This 59-year-old gentleman was admitted with left elbow septic olecranon bursitis as well as Haemophilus influenzae pneumonia is being closely monitored at this time. Multiple consultants are following the patient including Pulmonary and Infectious Disease. The patient also had acute on chronic hypoxic respiratory failure, also the patient is confused. PAST MEDICAL HISTORY: Reviewed. REVIEW OF SYSTEMS: 14-point review is negative as mentioned earlier. CURRENT MEDICATIONS: Reviewed. PHYSICAL EXAM: VITAL SIGNS: Pulse is 76, blood pressure 90/50, respirations 16. CHEST: Few scattered rhonchi and crackles. ABDOMEN: Soft, nondistended. NERVOUS SYSTEM: Nonfocal. LABORATORY DATA: WBC 22, glucose fluctuating. The chest x-ray which I reviewed showed some bilateral lesions. ASSESSMENT: 1. Acute left elbow septic olecranon bursitis. 2. Haemophilus influenzae pneumonia. 3. Acute on chronic hypoxic hypercarbic respiratory failure, status post mechanical ventilation. 4. Change in mental status, metabolic encephalopathy. 5. Multiple complex medical issues, history of extensive small cell lung cancer with METS to the brain. RECOMMENDATIONS: Recommend to continue current management, continue symptomatic treatment. Otherwise, continue with the antibiotics. Closely follow with multiple consultants. Prognosis guarded. Further recommendations to follow. The patient is FULL CODE currently. MMODL / IJN: [id number] /
[2024-12-21 21:02] LABS: Glucose,Whole Blood 190 mg/dL (70-110)
[2024-12-22 06:27] LABS: Glucose,Whole Blood 92 mg/dL (70-110)
--- NOTE | 2024-12-22 09:01 | P.PN ---
Subjective Progress Note Date: 12/21/24 12/21/2024: Patient was seen for a follow-up. Patient is sitting comfortably in his bed. Patient denies any headache, no dizziness. He is getting better. He is very cooperative. No new concerns. 12/18/2024: Patient was seen for a follow-up. Patient is sitting on the side of the bed. He denies any headache any chest pain. Per sitter, he is slightly more responsive. No new concerns. 12/17/2024: Patient was seen for a follow-up. Patient is sitting on the side of the bed, wants to get up. Sitter was also present. He has not been up on his feet since he has been hospitalized. Patient is speaking more clearly, in full sentences. He was more cooperative with examination today as below. Appears comfortable and cooperative. 12/16/2024: Patient was initially seen by Dr. Landis. Please refer to her note for details. Patient has known history of lung cancer with brain metastasis. Patient has history of seizures as well. Patient has been in the hospital since 11/12/2024. Per sitter, patient has been really "nasty", all day, trying to push away the oxygen mask for treatment. He is hallucinating, bringing his fingers to the mouth like smoking. Sometimes he is trying to get something from air. No seizures. The sitter also reported the patient's sister was present, who mentioned that he has always been "mean". Objective - Vital Signs Vital signs: Vital Signs Temp 98.2 F 12/21/24 14:00 Pulse 78 12/21/24 15:15 Resp 16 12/21/24 14:00 BP 94/56 12/21/24 14:00 Pulse Ox 96 12/21/24 14:00 FiO2 21 12/17/24 08:08 Intake & Output 12/20/24 12/21/24 12/21/24 18:59 06:59 18:59 Intake Total 1060 1900 400 Output Total 1625 2550 1201 Balance -254 -439 -529 Intake: Intake, IV Titration 100 Amount Piperacillin-Tazobactam 3 100 .375 gm In Sodium Chloride 0.9% 100 ml @ 25 mls/hr IVPB Q8H [facility] Rx#: [id number] Oral 960 1900 400 Output: Urine 1625 2550 1200 Stool 1 Other: Voiding Method External Catheter External Catheter External Catheter # Bowel Movements 1 2 ABP, PAP, CO, CI - Last Documented Arterial Blood Pressure 131/85 - Exam Patient is alert and awake, sitting in the bed. Speech and language functions appears normal. Patient states it is December 25. In the year is 2016, that he said 2006, then 2026. Patient knows that he is in [facility] in [facility]. He states current president is "Awais avery". Patient is making appropriate commands and remarks. His muscle strength is symmetric, and revealed deltoid 5, manager architecture 5, biceps 5-, triceps 5-, hip flexion 4 4-and ankle dorsiflexion 5 bilaterally. appears fairly normal in the biceps, manager architecture, although the triceps was weak somewhat left more than right. His ankle dorsiflexion appears fairly normal, knee extension also normal. Hip flexion at about 4+5-bilaterally. He appears somewhat malnutrition. - Labs CBC & Chem 7: 12/21/24 02:59 12/21/24 02:59 Labs: Abnormal Lab Results - Last 24 Hours (Table) 12/20/24 12/20/24 12/21/24 Range/Units 17:10 21:09 02:59 WBC 22.0 H (3.8-10.6) k/uL RBC 4.27 L (4.30-5.90) m/uL Hgb 12.4 L (13.0-17.5) gm/dL MCHC 30.7 L (31.0-37.0) g/dL RDW 17.2 H (11.5-15.5) % Neutrophils # (Manual) 17.16 H (1.3-7.7) k/uL Monocytes # (Manual) 1.54 H (0-1.0) k/uL Metamyelocytes # (Man) 0.22 H (0) k/uL Sodium (137-145) mmol/L BUN (9-20) mg/dL POC Glucose (mg/dL) 235 H 245 H (70-110) mg/dL Total Protein (6.3-8.2) g/dL Albumin (3.5-5.0) g/dL 12/21/24 12/21/24 12/21/24 Range/Units 02:59 06:27 07:22 WBC (3.8-10.6) k/uL RBC (4.30-5.90) m/uL Hgb (13.0-17.5) gm/dL MCHC (31.0-37.0) g/dL RDW (11.5-15.5) % Neutrophils # (Manual) (1.3-7.7) k/uL Monocytes # (Manual) (0-1.0) k/uL Metamyelocytes # (Man) (0) k/uL Sodium 136 L (137-145) mmol/L BUN 35 H (9-20) mg/dL POC Glucose (mg/dL) 44 L* 133 H (70-110) mg/dL Total Protein 5.6 L (6.3-8.2) g/dL Albumin 3.1 L (3.5-5.0) g/dL 12/21/24 12/21/24 Range/Units 11:58 16:46 WBC (3.8-10.6) k/uL RBC (4.30-5.90) m/uL Hgb (13.0-17.5) gm/dL MCHC (31.0-37.0) g/dL RDW (11.5-15.5) % Neutrophils # (Manual) (1.3-7.7) k/uL Monocytes # (Manual) (0-1.0) k/uL Metamyelocytes # (Man) (0) k/uL Sodium (137-145) mmol/L BUN (9-20) mg/dL POC Glucose (mg/dL) 288 H 244 H (70-110) mg/dL Total Protein (6.3-8.2) g/dL Albumin (3.5-5.0) g/dL Assessment and Plan Assessment: 1. Toxic metabolic encephalopathy: Multifactorial-secondary to hypercapnia, pneumonia, brain mets, prolonged hospitalization. Mentation and remarkably improved. Back to baseline. 2. Lung cancer with brain metastases 3. Reported history of seizures, likely secondary to brain mets Plan: 1. MRI of the brain with and without contrast performed today revealed no evidence for acute/subacute CVA. Bilateral parietal lesions which have decreased in size from 11/08/2023. Evaluation to 05/15/2024 is unable to be performed due to images during downtime. No new lesion identified from 11/08/2023. Left mastoid air cell effusion. Nonspecific white matter changes. I personally reviewed current and prior MRI from 11/08/2023, and agree with the findings. No new lesions or worsening of the prior lesions when compared to the MRI from 11/08/2023. 2. EEG was abnormal due to background slowing of moderate to severe degree. This is suggestive of generalized cerebral dysfunction as can be seen with toxic metabolic encephalopathy or related to diffuse structural brain abnormality. Clinical correlation is recommended. No epileptiform activity was seen. 3. Patient's mentation is back to baseline. He is doing very well. 4. TSH 0.43, free T4 1.35. We will defer to IM to address abnormal thyroid functions. Vitamin B12 495, folate 14.30, vitamin D level 30.2, 5. Continue Keppra 1000 mg twice daily. 6. Start active PT and OT. Patient's strength is fairly well-preserved in the legs as well. Patient may be a good candidate for rehab. Possible to [facility], when approved by the insurance. 7. Neurologically clear. We will sign off. Please reconsult if any concerns.
--- NOTE | 2024-12-22 11:48 | P.PN ---
Subjective Progress Note Date: 12/22/24 The patient is seen today December 18, 2024 in follow-up on the selective care unit. He was transferred out of the intensive care unit yesterday. He remains awake and alert. Oriented to person only. last chalker at the bedside. He is maintaining good O2 saturations in the 90s on room air. He has been afebrile. Hemodynamically stable. MRI of the brain revealed no evidence of acute/subacute CVA. There is bilateral parietal lesions which have decreased in size compared to November 08, 2023. White count 15.7. Hemoglobin 11.6. Platelets 308. Sodium 142. Potassium 3.8. Bicarb 27. BUN 41. Creatinine 0.80. Glucose 121. Patient's, Pulmicort and Perforomist inhalations, prednisone taper. Remains on antibiotics in the form of Zosyn. Heparin for DVT prophylaxis. Remains on IV diuretics. Currently in a -330 mL balance. The patient is seen today December 19, 2024 in follow-up to the regular medical floor. He is currently sitting up in a chair. Awake and alert in no acute distress. He is calm and cooperative. No safety glass installer at the bedside. He remains on DuoNeb inhalations, Pulmicort and performance inhalations, prednisone taper. Heparin for DVT prophylaxis. Remains on IV diuretics. Remains on Zosyn. Culture was positive for haemophilus influenza nearly 1 month ago. White count 17.4 hemoglobin 12.1. Platelets 304. C-reactive protein 1.30. Currently in a -800 mL balance. The patient is seen today December 20, 2024 in follow-up on the regular medical floor. He is awake and alert in no acute distress. Calm and cooperative. He is sitting up in a chair at the bedside. He denies any worsening shortness of breath, cough or congestion. He is maintaining good O2 saturations in the 90s on room air. Glucose 167. He remains on DuoNeb inhalations, Pulmicort and Perforomist inhalations, prednisone taper. He remains on antibiotics in the form of Zosyn per ID service. Heparin for DVT prophylaxis. Remains on IV diuretics. Currently in the -2.5 L balance. The patient is seen today December 21, 2024 in follow-up on the regular medical floor. He is sitting up in bed. Awake and alert in no acute distress. He is calm and cooperative. He denies any worsening shortness of breath, cough or congestion. He is maintaining good O2 saturations in the 90s on room air. He has been afebrile. Hemodynamically stable. Globin 12.4. Platelets 251. Sodium 136. Potassium 4.1. Bicarb 24. BUN 35. Creatinine 0.86. Glucose 94. Procalcitonin negative at 0.12. Remains on Diflucan and Zosyn per ID service. He is continued on DuoNeb inhalations, Symbicort, prednisone taper. Heparin for DVT prophylaxis. Remains on oral diuretics. Oral Diamox. Currently in a -1.2 L balance. The patient is seen today December 22, 2024 in follow-up on the regular medical floor. He is currently up in a chair. Awake and alert in no acute distress. He is improving daily. He remains on DuoNeb and elations, Symbicort, prednisone taper. Remains on oral Lasix and Diamox. Heparin for DVT prophylaxis. Continued on Diflucan and Zosyn. Original sputum from November 26, 2024 was positive for haemophilus influenza. Glucose 92. Currently in a -3.3 L balance. Objective - Vital Signs Vital signs: Vital Signs Temp 97.3 F L 12/22/24 07:53 Pulse 80 12/22/24 09:28 Resp 18 12/22/24 10:59 BP 107/77 12/22/24 07:53 Pulse Ox 95 12/22/24 07:53 FiO2 21 12/17/24 08:08 Intake & Output 12/21/24 12/22/24 12/22/24 18:59 06:59 18:59 Intake Total 600 1900 300 Output Total 1701 4150 1 Balance -1101 -2250 299 Intake: Oral 600 1900 300 Output: Urine 1700 4150 Stool 1 1 Other: Voiding Method External Catheter External Catheter External Catheter # Voids 2 # Bowel Movements 2 2 1 ABP, PAP, CO, CI - Last Documented Arterial Blood Pressure 131/85 - Exam GENERAL EXAM: Alert, calm, 59-year-old male, sitting up in a chair, on room air, in no apparent distress. HEAD: Normocephalic. EYES: Normal reaction of pupils, equal size. NOSE: Clear with pink turbinates. THROAT: No erythema or exudates. Evidence of previous tracheostomy. NECK: No masses, no JVD. CHEST: No chest wall deformity. LUNGS: Equal air entry with no crackles, wheeze or rhonchi. CVS: S1 and S2 normal with no audible murmur, regular rhythm. ABDOMEN: No hepatosplenomegaly, normal bowel sounds, no guarding or rigidity. SPINE: No scoliosis or deformity SKIN: No rashes. Superficial ulcerations over the lower extremities. CENTRAL NERVOUS SYSTEM: Oriented to person only, no focal deficits, tone is normal in all 4 extremities. EXTREMITIES: There is no peripheral edema. No clubbing, no cyanosis. Peripheral pulses are intact. - Labs CBC & Chem 7: 12/21/24 02:59 12/21/24 02:59 Labs: Abnormal Lab Results - Last 24 Hours (Table) 12/21/24 12/21/24 12/21/24 Range/Units 11:58 16:46 21:01 POC Glucose (mg/dL) 288 H 244 H 190 H (70-110) mg/dL Assessment and Plan Assessment: Acute on chronic hypoxic and hypercapnic respiratory failure, requiring intubation and mechanical ventilation shortly after he received Ativan for agitation on the medical floor. Extubated on 11/29/2024. Recovered and on room air oxygen Haemophilus influenza pneumonia, in the setting of acute influenza A infection/superimposed bacterial pneumonia. Remains on Zosyn per ID service. Procalcitonin 0.12 Acute influenza A infection, completed Tamiflu Atrial fibrillation with controlled ventricular response. 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 Most recently treated with Tecentriq. CAT scan of the chest done on 11/18/2024 shows no evidence of any residual tumor or tumor progression History of metastatic brain lesions. 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 MRI of the brain December 17, 2024 revealed bilateral parietal lesions which have decreased in size compared to November 08, 2023 History of seizures, maintained on Keppra Chronic metabolic encephalopathy, multifactorial mostly with chronic hypercapnia Hypertension Striae of polysubstance abuse Olecranon bursitis, wound culture positive for methicillin-resistant Staphylococcus aureus. The patient was treated with vancomycin Plan: The patient was seen and evaluated Medications reviewed Stable and on room air oxygen Continue DuoNeb inhalations Continue Symbicort Continue prednisone taper Continue Lasix Continue Diamox Follow-up labs in a.m. Heparin for DVT prophylaxis Continued on Diflucan and Zosyn May be transferred to [facility] or discharged home with his sister This patient was seen independently by the pulmonary nurse practitioner addressing pulmonary issues I have personally seen and examined the patient, performed the documentation and the assessment and plan as written. Number of minutes spent on the visit: 25 Dictation was produced using [employer] dictation software. Please excuse any grammatical, word or spelling errors.
[2024-12-22 12:00] LABS: Glucose,Whole Blood 247 mg/dL (70-110)
--- NOTE | 2024-12-22 15:42 | P.PN ---
Subjective Progress Note Date: 12/22/24 Principal diagnosis: Reason for follow-up is left elbow septic olecranon bursitis/haemophilus pneumonia Patient is a 59-year-old male with a past medical history significant for hypertension seizure disorder atrial fibrillation he did have a metastatic lung cancer has been brought to the hospital for worsening swelling to the left elbow with a culture positive for MRSA concerning for septic olecranon bursitis. On today's evaluation that is 12/22/2024, Patient is afebrile patient is currently on room air and denies having any shortness of breath, the patient denies any chest pain or cough, the patient overall feeling better. No new labs has been obtained today Objective - Vital Signs Vital signs: Vital Signs Temp 97.3 F L 12/22/24 07:53 Pulse 68 12/22/24 12:53 Resp 18 12/22/24 10:59 BP 107/77 12/22/24 07:53 Pulse Ox 95 12/22/24 07:53 FiO2 21 12/17/24 08:08 Intake & Output 12/21/24 12/22/24 12/22/24 18:59 06:59 18:59 Intake Total 600 1900 300 Output Total 1701 4150 1101 Balance -1101 -2250 -801 Intake: Oral 600 1900 300 Output: Urine 1700 4150 1100 Stool 1 1 Other: Voiding Method External Catheter External Catheter External Catheter # Voids 2 # Bowel Movements 2 2 1 ABP, PAP, CO, CI - Last Documented Arterial Blood Pressure 131/85 - Exam GENERAL DESCRIPTION: Middle-age male lying in bed in no distress RESPIRATORY SYSTEM: Unlabored breathing , decreased breath sounds at bases HEART: S1 S2 regular rate and rhythm , ABDOMEN: Soft , no tenderness EXTREMITIES: No edema feet - Labs CBC & Chem 7: 12/21/24 02:59 12/21/24 02:59 Labs: Abnormal Lab Results - Last 24 Hours (Table) 12/21/24 12/21/24 12/22/24 Range/Units 16:46 21:01 11:58 POC Glucose (mg/dL) 244 H 190 H 247 H (70-110) mg/dL Assessment and Plan (1) Septic olecranon bursitis of left elbow Current Visit: Yes Status: Acute Code(s): M71.122 - OTHER INFECTIVE BURSITIS, LEFT ELBOW SNOMED Code(s): 4925251859902729 (2) Allergy to cephalosporin Current Visit: No Status: Acute Code(s): Z88.1 - ALLERGY STATUS TO OTHER ANTIBIOTIC AGENTS SNOMED Code(s): 927991375 (3) MRSA (methicillin resistant Staphylococcus aureus) infection Current Visit: Yes Status: Acute Code(s): A49.02 - METHICILLIN RESIS STAPH INFECTION, UNSP SITE SNOMED Code(s): 970957279 (4) Influenza A Current Visit: Yes Status: Acute Code(s): J10.1 - FLU DUE TO OTH IDENT INFLUENZA VIRUS W OTH RESP MANIFEST SNOMED Code(s): 055410670 (5) Pneumonia Current Visit: No Status: Acute Code(s): J18.9 - PNEUMONIA, UNSPECIFIED ORGANISM SNOMED Code(s): 739630002 (6) Leukocytosis Current Visit: No Status: Acute Code(s): D72.829 - ELEVATED WHITE BLOOD CELL COUNT, UNSPECIFIED SNOMED Code(s): 054681987 Plan: 1patient being admitted to the hospital for left elbow pain swelling redness he did have a wound with a culture positive for MRSA in the outpatient setting now with concern for left elbow septic olecranon bursitis for the patient received adequate IV vancomycin and did have healing of his left elbow ulcer/olecranon bursitis. 2patient with influenza A for which the patient has completed 5-day course of Tamiflu 3patient is afebrile did have worsening of his leukocytosis however his procalcitonin is normal questionably steroid related versus thrush as a chest x- ray did show improvement 4we will continue the patient on Diflucan and Zosyn check a CBC with a.m. lab Dictation was produced using [employer] dictation software. please excuse any grammatical, word or spelling errors.
[2024-12-22 17:03] LABS: Glucose,Whole Blood 355 mg/dL (70-110)
[2024-12-22 21:19] LABS: Glucose,Whole Blood 158 mg/dL (70-110)
--- NOTE | 2024-12-22 23:24 | PN ---
PROGRESS NOTE DATE OF SERVICE: 12/22/2024 I am covering for Dr. Byers. SUBJECTIVE: This is a 59-year-old gentleman who was admitted with prolonged mechanical ventilation and other medical issues, is awaiting ECF rehab. No chest pain. No palpitation. OBJECTIVE: VITAL SIGNS: Pulse is 80, blood pressure 107/77. CHEST: A few scattered rhonchi. ABDOMEN: Soft. NERVOUS SYSTEM: Diffusely weak. LABORATORY DATA: Reviewed. ASSESSMENT: 1. Acute left elbow septic olecranon bursitis. 2. Haemophilus influenzae pneumonia. 3. Acute on chronic hypoxic respiratory failure, status post prolonged mechanical ventilation. 4. Change in mental status, acute metabolic encephalopathy. 5. Multiple complex medical issues including small-cell lung cancer with METS to the brain. RECOMMENDATIONS: Recommend to continue current management and continue symptomatic treatment. Recommend repeat labs. Otherwise, possible ECF rehab in the next 24 hours. Further recommendations to follow. MMODL / IJN: [id number] /
[2024-12-23 06:12] LABS: Glucose,Whole Blood 316 mg/dL (70-110)
[2024-12-23 08:42] LABS: HCT 37.9 % (39.6-50.0); HGB 11.6 g/dL (13.0-17.0); MCH 29.4 pg (27.0-32.0); MCHC 30.6 g/dL (32.0-37.0); MCV 95.9 FL (80.0-97.0); NRBC Per 100 WBC 0.32 X 10*3/uL (0.00-0.01); Platelet Count 220 X 10*3/uL (140-440); RBC 3.95 X 10*6/uL (4.40-5.60); RDW 17.7 % (11.5-14.5); WBC 19.22 X 10*3/uL (4.50-10.00)
[2024-12-23 08:48] LABS: ALT 22 U/L (10-49); AST 17 U/L (14-35); Albumin 3.4 g/dL (3.8-4.9); Alkaline Phosphatase 71 U/L (41-126); BUN/Creat Ratio 43.62 Ratio (12.00-20.00); Blood Urea Nitrogen 34.9 mg/dL (9.0-27.0); Calcium 8.7 mg/dL (8.7-10.3); Carbon Dioxide 24.8 mmol/L (21.6-31.8); Chloride 106 mmol/L (96-109); Glucose 128 mg/dL (70-110); Sodium 141 mmol/L (135-145); Total Bilirubin 0.2 mg/dL (0.3-1.2); Total Protein 5.4 g/dL (6.2-8.2)
[2024-12-23 09:16] LABS: Basophils # (M) 0.19 X 10*3/uL (0.00-0.10); Eosinophils # (M) 0 X 10*3/uL (0.04-0.35); Lymphocytes # (M) 0.96 X 10*3/uL (0.90-5.00); Metamyelocytes % 1 % (0-0); Monocytes # (M) 1.15 X 10*3/uL (0.20-1.00); Myelocytes % 2 % (0-0); Neutrophils # (M) 16.34 X 10*3/uL (1.80-7.70); Neutrophils % (M) 85 %; Nucleated Red Blood Cells 3 /100 WBCS
[2024-12-23 12:05] LABS: Glucose,Whole Blood 221 mg/dL (70-110)
--- NOTE | 2024-12-23 15:34 | P.PN ---
Subjective Progress Note Date: 12/23/24 The patient is seen today December 18, 2024 in follow-up on the selective care unit. He was transferred out of the intensive care unit yesterday. He remains awake and alert. Oriented to person only. baby sitter at the bedside. He is maintaining good O2 saturations in the 90s on room air. He has been afebrile. Hemodynamically stable. MRI of the brain revealed no evidence of acute/subacute CVA. There is bilateral parietal lesions which have decreased in size compared to November 08, 2023. White count 15.7. Hemoglobin 11.6. Platelets 308. Sodium 142. Potassium 3.8. Bicarb 27. BUN 41. Creatinine 0.80. Glucose 121. Patient's, Pulmicort and Perforomist inhalations, prednisone taper. Remains on antibiotics in the form of Zosyn. Heparin for DVT prophylaxis. Remains on IV diuretics. Currently in a -330 mL balance. The patient is seen today December 19, 2024 in follow-up to the regular medical floor. He is currently sitting up in a chair. Awake and alert in no acute distress. He is calm and cooperative. No director safety council at the bedside. He remains on DuoNeb inhalations, Pulmicort and performance inhalations, prednisone taper. Heparin for DVT prophylaxis. Remains on IV diuretics. Remains on Zosyn. Culture was positive for haemophilus influenza nearly 1 month ago. White count 17.4 hemoglobin 12.1. Platelets 304. C-reactive protein 1.30. Currently in a -800 mL balance. The patient is seen today December 20, 2024 in follow-up on the regular medical floor. He is awake and alert in no acute distress. Calm and cooperative. He is sitting up in a chair at the bedside. He denies any worsening shortness of breath, cough or congestion. He is maintaining good O2 saturations in the 90s on room air. Glucose 167. He remains on DuoNeb inhalations, Pulmicort and Perforomist inhalations, prednisone taper. He remains on antibiotics in the form of Zosyn per ID service. Heparin for DVT prophylaxis. Remains on IV diuretics. Currently in the -2.5 L balance. The patient is seen today December 21, 2024 in follow-up on the regular medical floor. He is sitting up in bed. Awake and alert in no acute distress. He is calm and cooperative. He denies any worsening shortness of breath, cough or congestion. He is maintaining good O2 saturations in the 90s on room air. He has been afebrile. Hemodynamically stable. Globin 12.4. Platelets 251. Sodium 136. Potassium 4.1. Bicarb 24. BUN 35. Creatinine 0.86. Glucose 94. Procalcitonin negative at 0.12. Remains on Diflucan and Zosyn per ID service. He is continued on DuoNeb inhalations, Symbicort, prednisone taper. Heparin for DVT prophylaxis. Remains on oral diuretics. Oral Diamox. Currently in a -1.2 L balance. The patient is seen today December 22, 2024 in follow-up on the regular medical floor. He is currently up in a chair. Awake and alert in no acute distress. He is improving daily. He remains on DuoNeb and elations, Symbicort, prednisone taper. Remains on oral Lasix and Diamox. Heparin for DVT prophylaxis. Continued on Diflucan and Zosyn. Original sputum from November 26, 2024 was positive for haemophilus influenza. Glucose 92. Currently in a -3.3 L balance. The patient is seen today December 23, 2024 in follow-up on the regular medical floor. He is awake and alert in no acute distress. He remains calm and cooperative. He is maintaining good O2 saturations in the 90s on room air. White count 19.2. Hemoglobin 11.6. Platelets 220. Sodium 141. Potassium 4.0. Bicarb 25. BUN 35. Creatinine 0.8. Glucose 128. He remains on DuoNeb inhalations, Symbicort, prednisone taper. Completed Zosyn. He remains on heparin for DVT prophylaxis. Remains on oral diuretics. Remains on Diflucan. Objective - Vital Signs Vital signs: Vital Signs Temp 97.5 F L 12/23/24 14:23 Pulse 76 12/23/24 15:02 Resp 18 12/23/24 14:23 BP 106/71 12/23/24 14:23 Pulse Ox 97 12/23/24 14:23 FiO2 21 12/17/24 08:08 Intake & Output 12/22/24 12/23/24 12/23/24 18:59 06:59 18:59 Intake Total 300 Output Total 2501 1350 800 Balance -22001350 -800 Intake: Oral 300 Output: Urine 2500 1350 800 Stool 1 Other: Voiding Method External Catheter External Catheter # Voids 1 # Bowel Movements 1 3 1 ABP, PAP, CO, CI - Last Documented Arterial Blood Pressure 131/85 - Exam GENERAL EXAM: Alert, calm, 59-year-old male, resting in bed, on room air, comfortable in no apparent distress. HEAD: Normocephalic. EYES: Normal reaction of pupils, equal size. NOSE: Clear with pink turbinates. THROAT: No erythema or exudates. Evidence of previous tracheostomy. NECK: No masses, no JVD. CHEST: No chest wall deformity. LUNGS: Equal air entry with no crackles, wheeze or rhonchi. CVS: S1 and S2 normal with no audible murmur, regular rhythm. ABDOMEN: No hepatosplenomegaly, normal bowel sounds, no guarding or rigidity. SPINE: No scoliosis or deformity SKIN: No rashes. Superficial ulcerations over the lower extremities. CENTRAL NERVOUS SYSTEM: Oriented to person only, no focal deficits, tone is normal in all 4 extremities. EXTREMITIES: There is no peripheral edema. No clubbing, no cyanosis. Peripheral pulses are intact. - Labs CBC & Chem 7: 12/23/24 05:56 12/23/24 05:56 Labs: Abnormal Lab Results - Last 24 Hours (Table) 12/22/24 12/22/24 12/23/24 Range/Units 17:00 21:18 05:56 WBC 19.22 H (4.50-10.00) X 10*3/uL RBC 3.95 L (4.40-5.60) X 10*6/uL Hgb 11.6 L (13.0-17.0) g/dL Hct 37.9 L (39.6-50.0) % MCHC 30.6 L (32.0-37.0) g/dL RDW 17.7 H (11.5-14.5) % Neutrophils # (Manual) 16.34 H (1.80-7.70) X 10*3/uL Monocytes # (Manual) 1.15 H (0.20-1.00) X 10*3/uL Eosinophils # (Manual) 0 L (0.04-0.35) X 10*3/uL Basophils # (Manual) 0.19 H (0.00-0.10) X 10*3/uL NRBC/100 WBC Diff 0.32 H (0.00-0.01) X 10*3/uL BUN (9.0-27.0) mg/dL BUN/Creatinine Ratio (12.00-20.00) Ratio Glucose (70-110) mg/dL POC Glucose (mg/dL) 355 H 158 H (70-110) mg/dL Total Bilirubin (0.3-1.2) mg/dL Total Protein (6.2-8.2) g/dL Albumin (3.8-4.9) g/dL 12/23/24 12/23/24 12/23/24 Range/Units 05:56 06:09 12:00 WBC (4.50-10.00) X 10*3/uL RBC (4.40-5.60) X 10*6/uL Hgb (13.0-17.0) g/dL Hct (39.6-50.0) % MCHC (32.0-37.0) g/dL RDW (11.5-14.5) % Neutrophils # (Manual) (1.80-7.70) X 10*3/uL Monocytes # (Manual) (0.20-1.00) X 10*3/uL Eosinophils # (Manual) (0.04-0.35) X 10*3/uL Basophils # (Manual) (0.00-0.10) X 10*3/uL NRBC/100 WBC Diff (0.00-0.01) X 10*3/uL BUN 34.9 H (9.0-27.0) mg/dL BUN/Creatinine Ratio 43.62 H (12.00-20.00) Ratio Glucose 128 H (70-110) mg/dL POC Glucose (mg/dL) 316 H 221 H (70-110) mg/dL Total Bilirubin 0.2 L (0.3-1.2) mg/dL Total Protein 5.4 L (6.2-8.2) g/dL Albumin 3.4 L (3.8-4.9) g/dL Assessment and Plan Assessment: Acute on chronic hypoxic and hypercapnic respiratory failure, requiring intubation and mechanical ventilation shortly after he received Ativan for agitation on the medical floor. Extubated on 11/29/2024. Recovered and on room air oxygen Haemophilus influenza pneumonia, in the setting of acute influenza A infection/superimposed bacterial pneumonia. Remains on Zosyn per ID service. Procalcitonin 0.12 Acute influenza A infection, completed Tamiflu Atrial fibrillation with controlled ventricular response. 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 Most recently treated with Tecentriq. CAT scan of the chest done on 11/18/2024 shows n o evidence of any residual tumor or tumor progression History of metastatic brain lesions. 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 MRI of the brain December 17, 2024 revealed bilateral parietal lesions which have decreased in size compared to November 08, 2023 History of seizures, maintained on Keppra Chronic metabolic encephalopathy, multifactorial mostly with chronic hypercapnia Hypertension Striae of polysubstance abuse Olecranon bursitis, wound culture positive for methicillin-resistant Staphylococcus aureus. The patient was treated with vancomycin Plan: The patient was seen and evaluated Medications and labs reviewed Continue DuoNeb inhalations Continue Symbicort Continue prednisone taper Continue Lasix Continue Diamox Heparin for DVT prophylaxis Continued on Diflucan Stable and on room air oxygen May be transferred to [facility] or discharged home with his sister I have personally seen and examined the patient, performed the documentation and the assessment and plan as written. Number of minutes spent on the visit: 10 Dictation was produced using [email or web address] dictation software. Please excuse any grammatical, word or spelling errors.
[2024-12-23 16:43] LABS: Glucose,Whole Blood 201 mg/dL (70-110)
--- NOTE | 2024-12-23 17:02 | P.PN ---
Subjective Progress Note Date: 12/23/24 Principal diagnosis: Reason for follow-up is left elbow septic olecranon bursitis/haemophilus pneumonia Patient is a 59-year-old male with a past medical history significant for hypertension seizure disorder atrial fibrillation he did have a metastatic lung cancer has been brought to the hospital for worsening swelling to the left elbow with a culture positive for MRSA concerning for septic olecranon bursitis. On today's evaluation that is 12/23/2024, patient has been afebrile, patient is breathing comfortably and is currently on room air, patient denies having any significant cough no chest pain, patient denies nausea vomiting or diarrhea and no abdominal pain. Patient white count is down to 19.22 creatinine 0.8 Objective - Vital Signs Vital signs: Vital Signs Temp 97.9 F 12/23/24 07:50 Pulse 72 12/23/24 11:29 Resp 18 12/23/24 07:50 BP 115/70 12/23/24 07:50 Pulse Ox 95 12/23/24 08:03 FiO2 21 12/17/24 08:08 Intake & Output 12/22/24 12/23/24 12/23/24 18:59 06:59 18:59 Intake Total 300 Output Total 2501 1350 800 Balance -2201 -1350 -800 Intake: Oral 300 Output: Urine 2500 1350 800 Stool 1 Other: Voiding Method External Catheter External Catheter # Voids 1 # Bowel Movements 1 3 1 ABP, PAP, CO, CI - Last Documented Arterial Blood Pressure 131/85 - Exam GENERAL DESCRIPTION: Middle-age male lying in bed in no distress RESPIRATORY SYSTEM: Unlabored breathing , decreased breath sounds at bases HEART: S1 S2 regular rate and rhythm , ABDOMEN: Soft , no tenderness EXTREMITIES: No edema feet - Labs CBC & Chem 7: 12/23/24 05:56 12/23/24 05:56 Labs: Abnormal Lab Results - Last 24 Hours (Table) 12/22/24 12/22/24 12/23/24 Range/Units 17:00 21:18 05:56 WBC 19.22 H (4.50-10.00) X 10*3/uL RBC 3.95 L (4.40-5.60) X 10*6/uL Hgb 11.6 L (13.0-17.0) g/dL Hct 37.9 L (39.6-50.0) % MCHC 30.6 L (32.0-37.0) g/dL RDW 17.7 H (11.5-14.5) % Neutrophils # (Manual) 16.34 H (1.80-7.70) X 10*3/uL Monocytes # (Manual) 1.15 H (0.20-1.00) X 10*3/uL Eosinophils # (Manual) 0 L (0.04-0.35) X 10*3/uL Basophils # (Manual) 0.19 H (0.00-0.10) X 10*3/uL NRBC/100 WBC Diff 0.32 H (0.00-0.01) X 10*3/uL BUN (9.0-27.0) mg/dL BUN/Creatinine Ratio (12.00-20.00) Ratio Glucose (70-110) mg/dL POC Glucose (mg/dL) 355 H 158 H (70-110) mg/dL Total Bilirubin (0.3-1.2) mg/dL Total Protein (6.2-8.2) g/dL Albumin (3.8-4.9) g/dL 12/23/24 12/23/24 12/23/24 Range/Units 05:56 06:09 12:00 WBC (4.50-10.00) X 10*3/uL RBC (4.40-5.60) X 10*6/uL Hgb (13.0-17.0) g/dL Hct (39.6-50.0) % MCHC (32.0-37.0) g/dL RDW (11.5-14.5) % Neutrophils # (Manual) (1.80-7.70) X 10*3/uL Monocytes # (Manual) (0.20-1.00) X 10*3/uL Eosinophils # (Manual) (0.04-0.35) X 10*3/uL Basophils # (Manual) (0.00-0.10) X 10*3/uL NRBC/100 WBC Diff (0.00-0.01) X 10*3/uL BUN 34.9 H (9.0-27.0) mg/dL BUN/Creatinine Ratio 43.62 H (12.00-20.00) Ratio Glucose 128 H (70-110) mg/dL POC Glucose (mg/dL) 316 H 221 H (70-110) mg/dL Total Bilirubin 0.2 L (0.3-1.2) mg/dL Total Protein 5.4 L (6.2-8.2) g/dL Albumin 3.4 L (3.8-4.9) g/dL Assessment and Plan (1) Septic olecranon bursitis of left elbow Current Visit: Yes Status: Acute Code(s): M71.122 - OTHER INFECTIVE BURSITIS, LEFT ELBOW SNOMED Code(s): 9481998811297526 (2) Allergy to cephalosporin Current Visit: No Status: Acute Code(s): Z88.1 - ALLERGY STATUS TO OTHER ANTIBIOTIC AGENTS SNOMED Code(s): 351245366 (3) MRSA (methicillin resistant Staphylococcus aureus) infection Current Visit: Yes Status: Acute Code(s): A49.02 - METHICILLIN RESIS STAPH INFECTION, UNSP SITE SNOMED Code(s): 540748999 (4) Influenza A Current Visit: Yes Status: Acute Code(s): J10.1 - FLU DUE TO OTH IDENT INFLUENZA VIRUS W OTH RESP MANIFEST SNOMED Code(s): 468548040 (5) Pneumonia Current Visit: No Status: Acute Code(s): J18.9 - PNEUMONIA, UNSPECIFIED ORGANISM SNOMED Code(s): 767665999 (6) Leukocytosis Current Visit: No Status: Acute Code(s): D72.829 - ELEVATED WHITE BLOOD CELL COUNT, UNSPECIFIED SNOMED Code(s): 081555913 Plan: 1patient being admitted to the hospital for left elbow pain swelling redness he did have a wound with a culture positive for MRSA in the outpatient setting now with concern for left elbow septic olecranon bursitis for the patient received adequate IV vancomycin and did have healing of his left elbow ulcer/olecranon bursitis. 2patient with influenza A for which the patient has completed 5-day course of Tamiflu 3patient is afebrile and white count is trending down continue with the Diflucan, Zosyn has been discontinued we will monitor closely off antibiotic therapy Dictation was produced using [employer] dictation software. please excuse any grammatical, word or spelling errors. Time with Patient: Less than 30
[2024-12-23 21:00] LABS: Glucose,Whole Blood 187 mg/dL (70-110)
--- NOTE | 2024-12-23 22:00 | PN ---
PROGRESS NOTE CHIEF COMPLAINT: Acute respiratory failure and encephalopathy. HISTORY OF PRESENT ILLNESS: This patient's condition is just about the same. We are still waiting to see if he can be transferred to a group home. PHYSICAL EXAMINATION: CHEST: Breath sounds are heard bilaterally. CARDIAC EXAM: Unremarkable. ABDOMEN: Soft and flat without masses. IMPRESSION: 1. Carcinoma of the lung. 2. Encephalopathy. 3. Status post acute respiratory failure. PLAN: Transfer to [facility] or [facility] once arrangements are consummated. MMODL / IJN: [id number] /
[2024-12-24 06:12] LABS: Glucose,Whole Blood 121 mg/dL (70-110)
[2024-12-24 11:13] LABS: Glucose,Whole Blood 160 mg/dL (70-110)
--- NOTE | 2024-12-24 13:37 | P.PN ---
Subjective Progress Note Date: 12/24/24 Principal diagnosis: Mental status changes. Patient is a 59-year-old male with past medical history significant for hypertension, atrial fibrillation, polysubstance abuse, seizure disorder, previous ventilator dependent respiratory failure, lung cancer with brain mets status post chemo and radiation. More recently, patient's been following at the [facility] for multiple wounds. He was noted to be confused. Left elbow was erythemic and warm thought to be olecranon bursitis. Wound culture of the left elbow positive for methicillin-resistant Staphylococcus aureus. Sent to the emergency department for IV antibiotics on 11/12/2024. He was admitted to the cardiac stepdown unit. Apparently, noted to have increased work of breathing, and placed on BiPAP. Pulmonary consult was placed. Patient currently being evaluated in room 350. Remains confused, lethargic and will not answer my questions. There is a bedside sitter. Brain CT done on admission did not show any acute intracranial bleeding or mass effect. Postsurgical changes in the right posterior parietal and posterior left parietal occipital lobes with craniotomy. Patient currently on BiPAP with settings 12/6 and FiO2 of 40%. Nonlabored breathing. Achieving adequate tidal volumes. Previous VBG showing a pH of 7.33, pCO2 of 47. Chest x-ray showing diffuse interstitial densities, consider CHF versus atypical pneumonias. Is afebrile. CBC: WBC count 9.6, hemoglobin 14.8, platelets 316. CMP: sodium 142, potassium 2.4, chloride 103, serum bicarb 22, BUN 59, creatinine 1.2, glucose 96. Urinalysis unremarkable for infection. LFTs not elevated. Troponin 0.06. Admission EKG: Atrial fibr illation with controlled ventricular response, rate 81 bpm, RBBB pattern. Current most recent vital signs: Temperature 97.9 F, heart rate 109 bpm, blood pressure 123/75 mmHg, nontachypneic, on the above-mentioned BiPAP settings, SpO2 99%. Progress note dated November 15, 2024. 59-year-old male who is seen today in room 350. He is in bed, on 5 L nasal cannula. The BiPAP device is set at 10/5 and 40%. He is not receiving any IV fluids. The patient has a history of hypertension, atrial fibrillation, polysubstance abuse, seizure disorder, previous ventilator dependent respiratory failure, lung cancer, with brain mets. The patient was transferred over to the hospital, because of an elbow infection, secondary to MRSA, to receive IV antibiotics in the form of vancomycin. Current laboratory data includes a white count 13, hemoglobin 12.2, hematocrit 38.8, and a platelet count of 290,000. Sodium 144, potassium 2.4, chlorides 113, CO2 23, BUN 31, and creatinine 0.61. Glucose is 115. Troponin was 0.036. N-terminal proBNP was 5560. Procalcitonin level was normal at 0.13. Blood cultures are currently negative. Chest x-ray shows significant opacification of the left lung. The right lung looks relatively normal save for possible infiltrate or atelectasis at the right lung base medially. Progress note dated November 16, 2024. 59-year-old male seen today in room 350. The patient is currently on 6 L of oxygen by nasal cannula. The patient is not receiving any fluids. He is receiving vancomycin for his MRSA infection. Clinically, he is a bit more awake and alert today than he was yesterday. Current laboratory data includes a white count 12.6, hemoglobin 13.5, hematocrit 41.6, and a platelet count of 297,000. Sodium 146, potassium 2.6, chlorides 111, CO2 25, anion gap 10, BUN 23, creatinine 0.58. Blood cultures are negative. Progress note dated November 17, 2024. 59-year-old male seen today in room 350. Currently, the patient is on nasal O2, at 5 L. He is getting saline at 5 cc an hour. According to the nurse, the patient has been having tachycardia, i.e. atrial fibrillation with RVR, and the primary service is being notified, so that may be cardiology can see the patient. Currently, white count 16.3, hemoglobin 14.1, hematocrit 44.1, platelet count 3 26,000. Sodium 147, potassium 2.8, chlorides 113, CO2 24, BUN 18, creatinine 0.6. Glucose is 204. Calcium 9.2. Procalcitonin level was normal at 0.13. Blood cultures are negative. Chest x-ray apparently shows improving aeration to the left lung. Patient was seen today on 11/30/2024, remains in the ICU, patient was extubated yesterday initially to BiPAP 09/06/50% now on nasal cannula patient is requiring Precedex, and intermittently has been requiring Haldol for extreme agitation, and yelling and cursing people around him. He is on Precedex at 0.6, he is also on Zosyn, and on Tamiflu. Today I recommended Haldol on a as needed basis, he will receive 4 mg IV push every 6 hours as needed. And he will remain on Precedex, chest x-ray continues show evidence of bilateral airspace disease. Patient will definitely need to remain in the ICU, no plans to get him transferred to the floor as he remains marginal at best. WBC count 6.9 hemoglobin 9.7 electrolytes are normal renal profile is normal Patient was seen today on 12/01/2024, patient remains in the ICU, has been tolerating the extubation well, intermittently on BiPAP 09/06/50% presently on nasal cannula, he is sitting in a chair, does not seem to be in distress. And his mentation seems to be much improved. He is not as restless and agitated agitated seems to be better since he was placed back on his Subutex. Not requir ing Haldol anymore. And not requiring any Precedex. Labs reviewed today he had relatively normal CBC WBC count is 10.2 hemoglobin is 10.0 electrolytes are normal renal profile is normal blood sugar is 121 chest x-ray continues show bibasilar patchy airspace disease opacities and interstitial prominence The patient is seen today December 02, 2024 in follow-up in the intensive care unit. He is currently awake and alert in no acute distress. He is sitting up in a chair at the bedside. He is maintaining O2 saturations in the 90s on 12 L high flow nasal cannula. He has normal saline at 10 mL/h. He remains on Zosyn. Blood culture revealed no growth. Sputum culture was positive for haemophilus influenza. White count 8.6. Hemoglobin 10.0. Platelets 199. Sodium 138. Potassium 4.2. Bicarb 29. BUN 20. Creatinine 0.59. Glucose 91. He remains on DuoNeb inhalations and prednisone. Heparin for DVT prophylaxis. Chest x-ray reveals multifocal patchy airspace opacities concerning for pneumonia. The patient is seen today December 03, 2024 in follow-up in the intensive care unit. He is currently sitting up in a chair. Awake and alert in no acute distress. He is confused at times. mass communications professor is at the bedside. He is maintaining good O2 saturations in the 90s on 7 L high flow nasal cannula. He remains on Zosyn. He has not utilized BiPAP in greater than 24 hours. Continued on DuoNeb and elations. Continued on prednisone. Remains on Subutex. Chest x-ray read shows unchanged multifocal patchy airspace opacities. More pronounced throughout the right lung. Progress note dated December 04, 2024. 59-year-old male seen today in room 376. The patient is on a liter high flow O2. He is receiving IV Zosyn. For the past number of days, he was in the intensive care unit. Clinically, he appears to be relatively stable. He denies any shortness of breath, cough, wheezing, chest tightness. No new labs today other than a glucose of 144. Sputum sampling from November 26 shows evidence of Haemophilus influenzae. Recent chest x-ray dated December 03, 2024 shows unchanged multifocal patchy airspace opacities, concerning for pneumonia, throughout the right lung. Progress note dated December 05, 2024. 59-year-old male seen today in room 376. The patient is confused. He is got a sitter at the bedside. He is on 8 L nasal cannula. He is not receiving any IV fluids. The patient was talking about going fishing. Laboratory data includes a glucose of 110. Sputum from November 26 was positive for Haemophilus influenzae. Progress note dated December 06, 2024. 59-year-old male seen today in room 376. The patient has a sitter in the room. He is on a liter high flow nasal O2. No IV fluids. The patient's examination reveals coarse rhonchi. Will add some prednisone to his regimen. The patient is not on home oxygen. No new labs today other than a glucose of 217. Yeste rday, the patient was quite confused, and thought he was going fishing. Today, he seems a bit more with it. Progress note dated December 07, 2024. 59-year-old male seen today in room 376. The patient continues on a liter high flow nasal O2. The patient is quite bronchospastic, and he will be given Solu- Medrol in place of prednisone, and we will add back budesonide, and formoterol. The patient continues on high flow O2, at 8 L. Laboratory data includes a glucose of 124. No additional laboratory are noted. Sputum from November 26 was positive for Haemophilus influenzae. No recent chest x-ray. Progress note dated December 08, 2024. 59-year-old male seen today in room 376. The patient is currently on high flow nasal O2 at 8 L. The patient was given corticosteroids yesterday, IV, because of his ongoing bronchospasm. He also continues on budesonide, formoterol, and breathing treatments. Clinically, the patient looks relatively stable, and sounds much worse that he looks. He does have a sitter in the room. No new labs today other than a glucose of 241. The patient is seen today December 18, 2024 in follow-up on the selective care unit. He was transferred out of the intensive care unit yesterday. He remains awake and alert. Oriented to person only. mass communications professor at the bedside. He is maintaining good O2 saturations in the 90s on room air. He has been afebrile. Hemodynamically stable. MRI of the brain revealed no evidence of acute/subacute CVA. There is bilateral parietal lesions which have decreased in size compared to November 08, 2023. White count 15.7. Hemoglobin 11.6. Platelets 308. Sodium 142. Potassium 3.8. Bicarb 27. BUN 41. Creatinine 0.80. Glucose 121. Patient's, Pulmicort and Perforomist inhalations, prednisone taper. Remains on antibiotics in the form of Zosyn. Heparin for DVT prophylaxis. Remains on IV diuretics. Currently in a -330 mL balance. The patient is seen today December 19, 2024 in follow-up to the regular medical floor. He is currently sitting up in a chair. Awake and alert in no acute distress. He is calm and cooperative. No health and safety technician at the bedside. He remains on DuoNeb inhalations, Pulmicort and performance inhalations, prednisone taper. Heparin for DVT prophylaxis. Remains on IV diuretics. Remains on Zo syn. Culture was positive for haemophilus influenza nearly 1 month ago. White count 17.4 hemoglobin 12.1. Platelets 304. C-reactive protein 1.30. Currently in a -800 mL balance. The patient is seen today December 20, 2024 in follow-up on the regular medical floor. He is awake and alert in no acute distress. Calm and cooperative. He is sitting up in a chair at the bedside. He denies any worsening shortness of breath, cough or congestion. He is maintaining good O2 saturations in the 90s on room air. Glucose 167. He remains on DuoNeb inhalations, Pulmicort and Perforomist inhalations, prednisone taper. He remains on antibiotics in the form of Zosyn per ID service. Heparin for DVT prophylaxis. Remains on IV diuretics. Currently in the -2.5 L balance. The patient is seen today December 21, 2024 in follow-up on the regular medical floor. He is sitting up in bed. Awake and alert in no acute distress. He is calm and cooperative. He denies any worsening shortness of breath, cough or congestion. He is maintaining good O2 saturations in the 90s on room air. He has been afebrile. Hemodynamically stable. Globin 12.4. Platelets 251. Sodium 136. Potassium 4.1. Bicarb 24. BUN 35. Creatinine 0.86. Glucose 94. Procalcitonin negative at 0.12. Remains on Diflucan and Zosyn per ID service. He is continued on DuoNeb inhalations, Symbicort, prednisone taper. Heparin for DVT prophylaxis. Remains on oral diuretics. Oral Diamox. Currently in a -1.2 L balance. The patient is seen today December 22, 2024 in follow-up on the regular medical floor. He is currently up in a chair. Awake and alert in no acute distress. He is improving daily. He remains on DuoNeb and elations, Symbicort, prednisone taper. Remains on oral Lasix and Diamox. Heparin for DVT prophylaxis. Continued on Diflucan and Zosyn. Original sputum from November 26, 2024 was positive for haemophilus influenza. Glucose 92. Currently in a -3.3 L balance. The patient is seen today December 23, 2024 in follow-up on the regular medical floor. He is awake and alert in no acute distress. He remains calm and cooperative. He is maintaining good O2 saturations in the 90s on room air. White count 19.2. Hemoglobin 11.6. Platelets 220. Sodium 141. Potassium 4.0. Bicarb 25. BUN 35. Creatinine 0.8. Glucose 128. He remains on DuoNeb inhalations, Symbicort, prednisone taper. Completed Zosyn. He remains on heparin for DVT prophylaxis. Remains on oral diuretics. Remains on Diflucan. Progress note dated December 24, 2024. The patient is again seen today in room 454. The patient has now been in the hospital for 42 days. He is on room air. He is not requiring any IV fluids. Clinically, he is stable, and could be discharged. Apparently there is some confusion as to his medications, which she can or cannot have at the jail or rehab facility. Nonetheless, the patient does not need to be in the acute care facility any longer. No new labs today other than a glucose of 160. Continues on fluconazole, and is currently on prednisone 30 mg a day. Clinically he is very stable. No respiratory distress, cough, wheezing, chest tightness, phlegm production, etc. Objective - Vital Signs Vital signs: Vital Signs Temp 97.8 F 12/24/24 07:13 Pulse 74 12/24/24 12:08 Resp 18 12/24/24 07:13 BP 94/64 12/24/24 07:13 Pulse Ox 94 L 12/24/24 08:41 FiO2 21 12/17/24 08:08 Intake & Output 12/23/24 12/24/24 12/24/24 18:59 06:59 18:59 Output Total 1200 1150 Balance -1200 -1150 Output: Urine 1200 1150 Other: Voiding Method External Catheter External Catheter # Voids 1 # Bowel Movements 1 ABP, PAP, CO, CI - Last Documented Arterial Blood Pressure 131/85 - Exam No acute distress, awake and alert, currently on room air. HEENT examination is grossly unremarkable. Mucous membranes are moist. No oral lesions. Neck supple. Full range of motion. No adenopathy thyromegaly or neck vein distention. Cardiovascular examination reveals an irregular rhythm and rate. S1-S2 normal. No S3 or S4. No discernible murmur noted. Heart sounds are distant. Lungs reveal scattered mild bilateral rhonchi. No wheezes or crackles. Breath sounds equal. Abdomen soft bowel sounds are heard. No masses or tenderness. Extremities are intact. No cyanosis clubbing or edema. Skin reveals no significant rashes. Neurologic examination is brief but nonfocal. - Labs CBC & Chem 7: 12/23/24 05:56 12/23/24 05:56 Labs: Abnormal Lab Results - Last 24 Hours (Table) 12/23/24 12/23/24 12/24/24 Range/Units 16:41 20:58 06:09 POC Glucose (mg/dL) 201 H 187 H 121 H (70-110) mg/dL 12/24/24 Range/Units 11:08 POC Glucose (mg/dL) 160 H (70-110) mg/dL Assessment and Plan Assessment: Acute on chronic hypoxic and hypercapnic respiratory failure, requiring intub ation and mechanical ventilation shortly after he received Ativan for agitation on the medical floor. Extubated on 11/29/2024. Recovered and on room air oxygen. Haemophilus influenza pneumonia, in the setting of acute influenza A infection/superimposed bacterial pneumonia. Remains on Zosyn per ID service. Procalcitonin 0.12. Acute influenza A infection, completed Tamiflu. Atrial fibrillation with controlled ventricular response. 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 Most recently treated with Tecentriq. CAT scan of the chest done on 11/18/2024 shows no evidence of any residual tumor or tumor progression. History of metastatic brain lesions. 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 MRI of the brain December 17, 2024 revealed bilateral parietal lesions which have decreased in size compared to November 08, 2023. History of seizures. Chronic metabolic encephalopathy, multifactorial mostly with chronic hypercapnia. Hypertension. Striae of polysubstance abuse. Olecranon bursitis, wound culture positive for methicillin-resistant Staphylococcus aureus. Plan: Plan dated November 15, 2024. The patient is seen in room 350. Currently he is on 5 L nasal cannula. He is not receiving any IV fluids. The patient has a BiPAP device in the room, with settings of 10/5, and 40% that he uses intermittently. All labs, x-rays, medications are reviewed. Will go ahead and get a follow-up chest x-ray in the morning. Additional recommendations and suggestions are forthcoming. Initial chest x-ray revealed relatively clear lung ayon, but the more recent x-ray shows some opacification, in the left lung. Prognosis is guarded. CODE STATUS should be addressed by the primary service. 50 minutes was spent with this patient, in the process of gathering data examining the patient, reviewing pertinent laboratory data x-rays, and medications, as well as discussing the diagnosis, treatment, prognosis, with the patient's primary nursing staff. Dictation was produced using Dragon dictation software. Please excuse any grammatical, word or spelling errors. Plan dated November 16, 2024. The patient was seen today in room 350. The patient is currently on 6 L nasal cannula. He is much more awake and alert. No respiratory distress. He is not receiving any IV fluids. The patient does continue on vancomycin. Labs, x- rays, and all medications are reviewed. CODE STATUS should be addressed by the primary service. A chest x-ray will be ordered for the morning. 50 minutes was spent with this patient, in the process of gathering data, examining the patient, reviewing pertinent laboratory data, x-rays, medications, as well as discussing diagnosis, treatment plan, prognosis, with the patient's primary nursing staff, and the patient himself. As mentioned, he was much more awake and alert today. Dictation was produced using [employer] software. Please excuse any grammatical, word or spelling errors. Plan dated November 17, 2024. The patient is seen again in room 350. The patient has developed atrial fibrillation with RVR. The primary service is being contacted, to ask whether or not cardiology can see this patient. Currently, the patient continues on vancomycin, for an infected elbow, with MRSA. CODE STATUS should be addressed by the primary service. All labs, x-rays, and medications are reviewed. The patient is currently on 5 L nasal cannula. He is getting saline at 5 cc an hour. We will continue to follow make recommendations. 50 minutes was spent with the patient, which included obtaining additional history, speaking to the bedside nurse, examining the patient, reviewing pertinent laboratory data, x- rays, and medications, as well as discussing the diagnosis, treatment, prognosis, with the patient. We will continue to follow. Dictation was produced using [employer] software. Please excuse any grammatical, word or spelling errors. Plan dated December 04, 2024. The patient is seen today in room 376. He continues on high flow nasal O2, at 8 L. Saturations were in the mid 90s. He continues on IV Zosyn. The patient also continues on DVT prophylaxis and GI prophylaxis. Labs, x-rays, and all medications were reviewed. We will continue to follow and make recommendations along the way. Eventually, the patient is to be transferred back to a jail, down in [place]. We will continue to follow make recommendations. Prognosis is guarded. Dictation was produced using [employer] software. Please excuse any grammatical, word or spelling errors. Plan dated December 05, 2024. The patient was sitting on his bed, and he was very confused, and had a sitter at the bedside. He was talking about fishing. The patient continues on 8 L of oxygen. Labs, x-rays, and all medications are reviewed. The patient continues on Augmentin. He also continues on DuoNeb updrafts. We will continue to follow and make a recommendation where appropriate. Respiratory status is still tenuous. All labs, x-rays, and medications are reviewed. Dictation was produced using [employer] software. Please excuse any grammatical, word or spelling errors. Plan dated December 06, 2024. The patient is seen today in room 376. He continues on high flow nasal O2 at 8 L. Additional recommendations and suggestions are forthcoming. Labs, x-rays, and medications are reviewed. The patient was quite confused yesterday, and seems a bit more with it today. He does have a sitter in the room. No new labs today other than a glucose of 217. We will continue to follow the patient. Prognosis is guarded. Dictation was produced using [employer] software. Please excuse any grammatical, word or spelling errors. Plan dated December 07, 2024. The patient is again seen in room 376. He continues on high flow nasal O2 at 8 L. The patient will get Solu-Medrol in place of prednisone. Will give him 60 mg every 6 hours. In addition we add budesonide 1 mg, mixed with formoterol 20 mcg, twice a day. His saturations on the 8 L or 93%. I have asked respiratory to try to wean down his FiO2 if possible. Labs, x-rays, and all medications are reviewed. We will continue to follow the patient, and make recommendations along the way. The patient's overall prognosis remains guarded. Dictation was produced using [employer] software. Please excuse any grammatical, word or spelling errors. Plan dated December 08, 2024. The patient is again seen today in room 376. He continues on high flow nasal O2 at 8 L. The patient is currently on IV Solu-Medrol, as well as breathing treatments, budesonide, and formoterol. Saturations are in the low to mid 90s. We will continue to follow the patient, make recommendations along the way. Labs, x-rays, and medications are reviewed. The patient's overall prognosis remains guarded. No additional recommendations are made at this time. Dictation was produced using [employer] software. Please excuse any grammatical, word or spelling errors. Plan dated December 24, 2024. The patient is stable, and ready for discharge. The patient has been ready for discharge for a number of days. Clinically, he is stable and there is nothing keeping him in the hospital. According to one of the discharge planners that has to do with one of his medications. Nonetheless, the patient is doing well from the pulmonary standpoint, is on room air, and not having any respiratory difficulty or distress. The patient has now been in the hospital for 42 days. Dictation was produced using [employer] software. Please excuse any grammatical, word or spelling errors. Time with Patient: Less than 30
--- NOTE | 2024-12-24 15:07 | P.PN ---
Subjective Progress Note Date: 12/24/24 Principal diagnosis: Reason for follow-up is left elbow septic olecranon bursitis/haemophilus pneumonia Patient is a 59-year-old male with a past medical history significant for hypertension seizure disorder atrial fibrillation he did have a metastatic lung cancer has been brought to the hospital for worsening swelling to the left elbow with a culture positive for MRSA concerning for septic olecranon bursitis. On today's evaluation that is 12/24/2024, Patient is afebrile this morning patient denies having any chest pain shortness of breath or cough, the patient i s currently on room air, patient denies any abdominal pain no diarrhea no nausea no vomiting. No new lab has been repeated today Objective - Vital Signs Vital signs: Vital Signs Temp 98.7 F 12/24/24 14:11 Pulse 86 12/24/24 14:11 Resp 19 12/24/24 14:11 BP 92/60 12/24/24 14:11 Pulse Ox 96 12/24/24 14:11 FiO2 21 12/17/24 08:08 Intake & Output 12/23/24 12/24/24 12/24/24 18:59 06:59 18:59 Output Total 1200 1150 Balance -1200 -1150 Output: Urine 1200 1150 Other: Voiding Method External Catheter External Catheter # Voids 1 # Bowel Movements 1 ABP, PAP, CO, CI - Last Documented Arterial Blood Pressure 131/85 - Exam GENERAL DESCRIPTION: Middle-age male lying in bed in no distress RESPIRATORY SYSTEM: Unlabored breathing , decreased breath sounds at bases HEART: S1 S2 regular rate and rhythm , ABDOMEN: Soft , no tenderness EXTREMITIES: No edema feet - Labs CBC & Chem 7: 12/23/24 05:56 12/23/24 05:56 Labs: Abnormal Lab Results - Last 24 Hours (Table) 12/23/24 12/23/24 12/24/24 Range/Units 16:41 20:58 06:09 POC Glucose (mg/dL) 201 H 187 H 121 H (70-110) mg/dL 12/24/24 Range/Units 11:08 POC Glucose (mg/dL) 160 H (70-110) mg/dL Assessment and Plan (1) Septic olecranon bursitis of left elbow Current Visit: Yes Status: Acute Code(s): M71.122 - OTHER INFECTIVE BURSITIS, LEFT ELBOW SNOMED Code(s): 6654268164198401 (2) Allergy to cephalosporin Current Visit: No Status: Acute Code(s): Z88.1 - ALLERGY STATUS TO OTHER ANTIBIOTIC AGENTS SNOMED Code(s): 325815390 (3) MRSA (methicillin resistant Staphylococcus aureus) infection Current Visit: Yes Status: Acute Code(s): A49.02 - METHICILLIN RESIS STAPH INFECTION, UNSP SITE SNOMED Code(s): 380518681 (4) Influenza A Current Visit: Yes Status: Acute Code(s): J10.1 - FLU DUE TO OTH IDENT INFLUENZA VIRUS W OTH RESP MANIFEST SNOMED Code(s): 896314224 (5) Pneumonia Current Visit: No Status: Acute Code(s): J18.9 - PNEUMONIA, UNSPECIFIED ORGANISM SNOMED Code(s): 781434116 (6) Leukocytosis Current Visit: No Status: Acute Code(s): D72.829 - ELEVATED WHITE BLOOD CELL COUNT, UNSPECIFIED SNOMED Code(s): 496991217 Plan: 1patient being admitted to the hospital for left elbow pain swelling redness he did have a wound with a culture positive for MRSA in the outpatient setting now with concern for left elbow septic olecranon bursitis for the patient received adequate IV vancomycin and did have healing of his left elbow ulcer/olecranon bursitis. 2patient with influenza A for which the patient has completed 5-day course of Tamiflu 3patient is afebrile and white count is trending down as of yesterday no CBC was done today, continue with the Diflucan, and monitor clinical course closely Dictation was produced using [employer] dictation software. please excuse any grammatical, word or spelling errors. Time with Patient: Less than 30
[2024-12-24 17:18] LABS: Glucose,Whole Blood 193 mg/dL (70-110)
[2024-12-24 20:42] LABS: Glucose,Whole Blood 203 mg/dL (70-110)
[2024-12-24] MEDS: BUPRENORPHINE-NALOX 8-2 MG TAB 1 EACH TAB.SUBL SL SCH (21:52)
--- NOTE | 2024-12-25 00:24 | PN ---
PROGRESS NOTE DATE OF SERVICE: 12/24/2024 CHIEF COMPLAINT: Anoxic brain injury. HISTORY OF PRESENT ILLNESS: This gentleman is doing well and is stable. [employer] are working on getting him into a [place] [facility] [place] facility. PHYSICAL EXAMINATION: GENERAL: He is semi-responsive. He might be a little bit more lethargic today than usual. CHEST: Clear. IMPRESSION: 1. Anoxic brain injury. 2. Carcinoma of the lung. 3. Pneumonitis with sepsis. PLAN: Buprenorphine will be stopped, which should allow him to be transferred to a [place] health care facility. MMODL / IJN: [id number] /
[2024-12-25 06:17] LABS: Glucose,Whole Blood 153 mg/dL (70-110)
[2024-12-25 11:45] LABS: Glucose,Whole Blood 251 mg/dL (70-110)
--- NOTE | 2024-12-25 14:32 | P.PN ---
Subjective Progress Note Date: 12/25/24 Principal diagnosis: Mental status changes. Patient is a 59-year-old male with past medical history significant for hypertension, atrial fibrillation, polysubstance abuse, seizure disorder, previous ventilator dependent respiratory failure, lung cancer with brain mets status post chemo and radiation. More recently, patient's been following at the [facility] [place] for multiple wounds. He was noted to be confused. Left elbow was erythemic and warm thought to be olecranon bursitis. Wound culture of the left elbow positive for methicillin-resistant Staphylococcus aureus. Sent to the emergency department for IV antibiotics on 11/12/2024. He was admitted to the cardiac stepdown unit. Apparently, noted to have increased work of breathing, and placed on BiPAP. Pulmonary consult was placed. Patient currently being evaluated in room 350. Remains confused, lethargic and will not answer my questions. There is a bedside sitter. Brain CT done on admission did not show any acute intracranial bleeding or mass effect. Postsurgical changes in the right posterior parietal and posterior left parietal occipital lobes with craniotomy. Patient currently on BiPAP with settings 12/6 and FiO2 of 40%. Nonlabored breathing. Achieving adequate tidal volumes. Previous VBG showing a pH of 7.33, pCO2 of 47. Chest x-ray showing diffuse interstitial densities, consider CHF versus atypical pneumonias. Is afebrile. CBC: WBC count 9.6, hemoglobin 14.8, platelets 316. CMP: sodium 142, potassium 2.4, chloride 103, serum bicarb 22, BUN 59, creatinine 1.2, glucose 96. Urinalysis unremarkable for infection. LFTs not elevated. Troponin 0.06. Admission EKG: Atrial fibr illation with controlled ventricular response, rate 81 bpm, RBBB pattern. Current most recent vital signs: Temperature 97.9 F, heart rate 109 bpm, blood pressure 123/75 mmHg, nontachypneic, on the above-mentioned BiPAP settings, SpO2 99%. Progress note dated November 15, 2024. 59-year-old male who is seen today in room 350. He is in bed, on 5 L nasal cannula. The BiPAP device is set at 10/5 and 40%. He is not receiving any IV fluids. The patient has a history of hypertension, atrial fibrillation, polysubstance abuse, seizure disorder, previous ventilator dependent respiratory failure, lung cancer, with brain mets. The patient was transferred over to the hospital, because of an elbow infection, secondary to MRSA, to receive IV antibiotics in the form of vancomycin. Current laboratory data includes a white count 13, hemoglobin 12.2, hematocrit 38.8, and a platelet count of 290,000. Sodium 144, potassium 2.4, chlorides 113, CO2 23, BUN 31, and creatinine 0.61. Glucose is 115. Troponin was 0.036. N-terminal proBNP was 5560. Procalcitonin level was normal at 0.13. Blood cultures are currently negative. Chest x-ray shows significant opacification of the left lung. The right lung looks relatively normal save for possible infiltrate or atelectasis at the right lung base medially. Progress note dated November 16, 2024. 59-year-old male seen today in room 350. The patient is currently on 6 L of oxygen by nasal cannula. The patient is not receiving any fluids. He is receiving vancomycin for his MRSA infection. Clinically, he is a bit more awake and alert today than he was yesterday. Current laboratory data includes a white count 12.6, hemoglobin 13.5, hematocrit 41.6, and a platelet count of 297,000. Sodium 146, potassium 2.6, chlorides 111, CO2 25, anion gap 10, BUN 23, creatinine 0.58. Blood cultures are negative. Progress note dated November 17, 2024. 59-year-old male seen today in room 350. Currently, the patient is on nasal O2, at 5 L. He is getting saline at 5 cc an hour. According to the nurse, the patient has been having tachycardia, i.e. atrial fibrillation with RVR, and the primary service is being notified, so that may be cardiology can see the patient. Currently, white count 16.3, hemoglobin 14.1, hematocrit 44.1, platelet count 3 26,000. Sodium 147, potassium 2.8, chlorides 113, CO2 24, BUN 18, creatinine 0.6. Glucose is 204. Calcium 9.2. Procalcitonin level was normal at 0.13. Blood cultures are negative. Chest x-ray apparently shows improving aeration to the left lung. Patient was seen today on 11/30/2024, remains in the ICU, patient was extubated yesterday initially to BiPAP 09/06/50% now on nasal cannula patient is requiring Precedex, and intermittently has been requiring Haldol for extreme agitation, and yelling and cursing people around him. He is on Precedex at 0.6, he is also on Zosyn, and on Tamiflu. Today I recommended Haldol on a as needed basis, he will receive 4 mg IV push every 6 hours as needed. And he will remain on Precedex, chest x-ray continues show evidence of bilateral airspace disease. Patient will definitely need to remain in the ICU, no plans to get him transferred to the floor as he remains marginal at best. WBC count 6.9 hemoglobin 9.7 electrolytes are normal renal profile is normal Patient was seen today on 12/01/2024, patient remains in the ICU, has been tolerating the extubation well, intermittently on BiPAP 09/06/50% presently on nasal cannula, he is sitting in a chair, does not seem to be in distress. And his mentation seems to be much improved. He is not as restless and agitated agitated seems to be better since he was placed back on his Subutex. Not requir ing Haldol anymore. And not requiring any Precedex. Labs reviewed today he had relatively normal CBC WBC count is 10.2 hemoglobin is 10.0 electrolytes are normal renal profile is normal blood sugar is 121 chest x-ray continues show bibasilar patchy airspace disease opacities and interstitial prominence The patient is seen today December 02, 2024 in follow-up in the intensive care unit. He is currently awake and alert in no acute distress. He is sitting up in a chair at the bedside. He is maintaining O2 saturations in the 90s on 12 L high flow nasal cannula. He has normal saline at 10 mL/h. He remains on Zosyn. Blood culture revealed no growth. Sputum culture was positive for haemophilus influenza. White count 8.6. Hemoglobin 10.0. Platelets 199. Sodium 138. Potassium 4.2. Bicarb 29. BUN 20. Creatinine 0.59. Glucose 91. He remains on DuoNeb inhalations and prednisone. Heparin for DVT prophylaxis. Chest x-ray reveals multifocal patchy airspace opacities concerning for pneumonia. The patient is seen today December 03, 2024 in follow-up in the intensive care unit. He is currently sitting up in a chair. Awake and alert in no acute distress. He is confused at times. computer publisher is at the bedside. He is maintaining good O2 saturations in the 90s on 7 L high flow nasal cannula. He remains on Zosyn. He has not utilized BiPAP in greater than 24 hours. Continued on DuoNeb and elations. Continued on prednisone. Remains on Subutex. Chest x-ray read shows unchanged multifocal patchy airspace opacities. More pronounced throughout the right lung. Progress note dated December 04, 2024. 59-year-old male seen today in room 376. The patient is on a liter high flow O2. He is receiving IV Zosyn. For the past number of days, he was in the intensive care unit. Clinically, he appears to be relatively stable. He denies any shortness of breath, cough, wheezing, chest tightness. No new labs today other than a glucose of 144. Sputum sampling from November 26 shows evidence of Haemophilus influenzae. Recent chest x-ray dated December 03, 2024 shows unchanged multifocal patchy airspace opacities, concerning for pneumonia, throughout the right lung. Progress note dated December 05, 2024. 59-year-old male seen today in room 376. The patient is confused. He is got a sitter at the bedside. He is on 8 L nasal cannula. He is not receiving any IV fluids. The patient was talking about going fishing. Laboratory data includes a glucose of 110. Sputum from November 26 was positive for Haemophilus influenzae. Progress note dated December 06, 2024. 59-year-old male seen today in room 376. The patient has a sitter in the room. He is on a liter high flow nasal O2. No IV fluids. The patient's examination reveals coarse rhonchi. Will add some prednisone to his regimen. The patient is not on home oxygen. No new labs today other than a glucose of 217. Yeste rday, the patient was quite confused, and thought he was going fishing. Today, he seems a bit more with it. Progress note dated December 07, 2024. 59-year-old male seen today in room 376. The patient continues on a liter high flow nasal O2. The patient is quite bronchospastic, and he will be given Solu- Medrol in place of prednisone, and we will add back budesonide, and formoterol. The patient continues on high flow O2, at 8 L. Laboratory data includes a glucose of 124. No additional laboratory are noted. Sputum from November 26 was positive for Haemophilus influenzae. No recent chest x-ray. Progress note dated December 08, 2024. 59-year-old male seen today in room 376. The patient is currently on high flow nasal O2 at 8 L. The patient was given corticosteroids yesterday, IV, because of his ongoing bronchospasm. He also continues on budesonide, formoterol, and breathing treatments. Clinically, the patient looks relatively stable, and sounds much worse that he looks. He does have a sitter in the room. No new labs today other than a glucose of 241. The patient is seen today December 18, 2024 in follow-up on the selective care unit. He was transferred out of the intensive care unit yesterday. He remains awake and alert. Oriented to person only. computer publisher at the bedside. He is maintaining good O2 saturations in the 90s on room air. He has been afebrile. Hemodynamically stable. MRI of the brain revealed no evidence of acute/subacute CVA. There is bilateral parietal lesions which have decreased in size compared to November 08, 2023. White count 15.7. Hemoglobin 11.6. Platelets 308. Sodium 142. Potassium 3.8. Bicarb 27. BUN 41. Creatinine 0.80. Glucose 121. Patient's, Pulmicort and Perforomist inhalations, prednisone taper. Remains on antibiotics in the form of Zosyn. Heparin for DVT prophylaxis. Remains on IV diuretics. Currently in a -330 mL balance. The patient is seen today December 19, 2024 in follow-up to the regular medical floor. He is currently sitting up in a chair. Awake and alert in no acute distress. He is calm and cooperative. No clinical safety manager at the bedside. He remains on DuoNeb inhalations, Pulmicort and performance inhalations, prednisone taper. Heparin for DVT prophylaxis. Remains on IV diuretics. Remains on Zo syn. Culture was positive for haemophilus influenza nearly 1 month ago. White count 17.4 hemoglobin 12.1. Platelets 304. C-reactive protein 1.30. Currently in a -800 mL balance. The patient is seen today December 20, 2024 in follow-up on the regular medical floor. He is awake and alert in no acute distress. Calm and cooperative. He is sitting up in a chair at the bedside. He denies any worsening shortness of breath, cough or congestion. He is maintaining good O2 saturations in the 90s on room air. Glucose 167. He remains on DuoNeb inhalations, Pulmicort and Perforomist inhalations, prednisone taper. He remains on antibiotics in the form of Zosyn per ID service. Heparin for DVT prophylaxis. Remains on IV diuretics. Currently in the -2.5 L balance. The patient is seen today December 21, 2024 in follow-up on the regular medical floor. He is sitting up in bed. Awake and alert in no acute distress. He is calm and cooperative. He denies any worsening shortness of breath, cough or congestion. He is maintaining good O2 saturations in the 90s on room air. He has been afebrile. Hemodynamically stable. Globin 12.4. Platelets 251. Sodium 136. Potassium 4.1. Bicarb 24. BUN 35. Creatinine 0.86. Glucose 94. Procalcitonin negative at 0.12. Remains on Diflucan and Zosyn per ID service. He is continued on DuoNeb inhalations, Symbicort, prednisone taper. Heparin for DVT prophylaxis. Remains on oral diuretics. Oral Diamox. Currently in a -1.2 L balance. The patient is seen today December 22, 2024 in follow-up on the regular medical floor. He is currently up in a chair. Awake and alert in no acute distress. He is improving daily. He remains on DuoNeb and elations, Symbicort, prednisone taper. Remains on oral Lasix and Diamox. Heparin for DVT prophylaxis. Continued on Diflucan and Zosyn. Original sputum from November 26, 2024 was positive for haemophilus influenza. Glucose 92. Currently in a -3.3 L balance. The patient is seen today December 23, 2024 in follow-up on the regular medical floor. He is awake and alert in no acute distress. He remains calm and cooperative. He is maintaining good O2 saturations in the 90s on room air. White count 19.2. Hemoglobin 11.6. Platelets 220. Sodium 141. Potassium 4.0. Bicarb 25. BUN 35. Creatinine 0.8. Glucose 128. He remains on DuoNeb inhalations, Symbicort, prednisone taper. Completed Zosyn. He remains on heparin for DVT prophylaxis. Remains on oral diuretics. Remains on Diflucan. Progress note dated December 24, 2024. The patient is again seen today in room 454. The patient has now been in the hospital for 42 days. He is on room air. He is not requiring any IV fluids. Clinically, he is stable, and could be discharged. Apparently there is some confusion as to his medications, which she can or cannot have at the [place] [facility] or [facility]hab facility. Nonetheless, the patient does not need to be in the acute care facility any longer. No new labs today other than a glucose of 160. Continues on fluconazole, and is currently on prednisone 30 mg a day. Clinically he is very stable. No respiratory distress, cough, wheezing, chest tightness, phlegm production, etc. Progress note dated December 25, 2024. 59-year-old male who is now been in the hospital for 43 days. The patient is on room air. He is not requiring any IV fluids. Clinically, he has been stable for a number of days, and could have been discharged a week ago. Not sure what holding up the discharge is all about. No new laboratory data other than a glucose of 251. The patient is pretty much at baseline. He denies any unusual or worsening shortness of breath, cough, wheezing, chest tightness, phlegm pro duction, chest pain or pressure. Objective - Vital Signs Vital signs: Vital Signs Temp 97.5 F L 12/25/24 09:00 Pulse 80 12/25/24 11:46 Resp 16 12/25/24 09:00 BP 99/64 12/25/24 09:00 Pulse Ox 92 L 12/25/24 09:00 FiO2 21 12/25/24 08:41 Intake & Output 12/24/24 12/25/24 12/25/24 18:59 06:59 18:59 Intake Total 660 Output Total 1380 1750 Balance -1380 -1090 Intake: Oral 660 Output: Urine 1380 1750 Other: Voiding Method External Catheter External Catheter # Bowel Movements 1 ABP, PAP, CO, CI - Last Documented Arterial Blood Pressure 131/85 - Exam No acute distress, awake and alert, currently on room air. HEENT examination is grossly unremarkable. Mucous membranes are moist. No oral lesions. Neck supple. Full range of motion. No adenopathy thyromegaly or neck vein distention. Cardiovascular examination reveals an irregular rhythm and rate. S1-S2 normal. No S3 or S4. No discernible murmur noted. Heart sounds are distant. Lungs reveal scattered mild bilateral rhonchi. No wheezes or crackles. Breath sounds equal. Abdomen soft bowel sounds are heard. No masses or tenderness. Extremities are intact. No cyanosis clubbing or edema. Skin reveals no significant rashes. Neurologic examination is brief but nonfocal. - Labs CBC & Chem 7: 12/23/24 05:56 12/23/24 05:56 Labs: Abnormal Lab Results - Last 24 Hours (Table) 12/24/24 12/24/24 12/25/24 Range/Units 17:16 20:42 06:16 POC Glucose (mg/dL) 193 H 203 H 153 H (70-110) mg/dL 12/25/24 Range/Units 11:43 POC Glucose (mg/dL) 251 H (70-110) mg/dL Assessment and Plan Assessment: Acute on chronic hypoxic and hypercapnic respiratory failure, requiring intubation and mechanical ventilation shortly after he received Ativan for agitation on the medical floor. Extubated on 11/29/2024. Recovered and on room air oxygen. Haemophilus influenza pneumonia, in the setting of acute influenza A infection/superimposed bacterial pneumonia. Remains on Zosyn per ID service. Procalcitonin 0.12. Acute influenza A infection, completed Tamiflu. Atrial fibrillation with controlled ventricular response. 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 Most recen tly treated with Tecentriq. CAT scan of the chest done on 11/18/2024 shows no evidence of any residual tumor or tumor progression. History of metastatic brain lesions. 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 MRI of the brain December 17, 2024 revealed bilateral parietal lesions which have decreased in size compared to November 08, 2023. History of seizures. Chronic metabolic encephalopathy, multifactorial mostly with chronic hypercapnia. Hypertension. Striae of polysubstance abuse. Olecranon bursitis, wound culture positive for methicillin-resistant Staphylococcus aureus. Plan: Plan dated November 15, 2024. The patient is seen in room 350. Currently he is on 5 L nasal cannula. He is not receiving any IV fluids. The patient has a BiPAP device in the room, with settings of 10/5, and 40% that he uses intermittently. All labs, x-rays, medications are reviewed. Will go ahead and get a follow-up chest x-ray in the morning. Additional recommendations and suggestions are forthcoming. Initial chest x-ray revealed relatively clear lung ayon, but the more recent x-ray shows some opacification, in the left lung. Prognosis is guarded. CODE STATUS should be addressed by the primary service. 50 minutes was spent with this patient, in the process of gathering data examining the patient, reviewing pertinent laboratory data x-rays, and medications, as well as discussing the diagnosis, treatment, prognosis, with the patient's primary nursing staff. Dictation was produced using [employer] dictation software. Please excuse any grammatical, word or spelling errors. Plan dated November 16, 2024. The patient was seen today in room 350. The patient is currently on 6 L nasal cannula. He is much more awake and alert. No respiratory distress. He is not receiving any IV fluids. The patient does continue on vancomycin. Labs, x- rays, and all medications are reviewed. CODE STATUS should be addressed by the primary service. A chest x-ray will be ordered for the morning. 50 minutes was spent with this patient, in the process of gathering data, examining the patient, reviewing pertinent laboratory data, x-rays, medications, as well as discussing diagnosis, treatment plan, prognosis, with the patient's primary nursing staff, and the patient himself. As mentioned, he was much more awake and alert today. Dictation was produced using [employer] software. Please excuse any grammatical, word or spelling errors. Plan dated November 17, 2024. The patient is seen again in room 350. The patient has developed atrial fibrillation with RVR. The primary service is being contacted, to ask whether or not cardiology can see this patient. Currently, the patient continues on vancomycin, for an infected elbow, with MRSA. CODE STATUS should be addressed by the primary service. All labs, x-rays, and medications are reviewed. The patient is currently on 5 L nasal cannula. He is getting saline at 5 cc an hour. We will continue to follow make recommendations. 50 minutes was spent with the patient, which included obtaining additional history, speaking to the bedside nurse, examining the patient, reviewing pertinent laboratory data, x- rays, and medications, as well as discussing the diagnosis, treatment, prognosis, with the patient. We will continue to follow. Dictation was produced using [employer] software. Please excuse any grammatical, word or spelling errors. Plan dated December 04, 2024. The patient is seen today in room 376. He continues on high flow nasal O2, at 8 L. Saturations were in the mid 90s. He continues on IV Zosyn. The patient also continues on DVT prophylaxis and GI prophylaxis. Labs, x-rays, and all me dications were reviewed. We will continue to follow and make recommendations along the way. Eventually, the patient is to be transferred back to a [place] [facility], [place] in [place]. We will continue to follow make recommendations. Prognosis is guarded. Dictation was produced using [employer] software. Please excuse any grammatical, word or spelling errors. Plan dated December 05, 2024. The patient was sitting on his bed, and he was very confused, and had a sitter at the bedside. He was talking about fishing. The patient continues on 8 L of oxygen. Labs, x-rays, and all medications are reviewed. The patient continues on Augmentin. He also continues on DuoNeb updrafts. We will continue to follow and make a recommendation where appropriate. Respiratory status is still tenuous. All labs, x-rays, and medications are reviewed. Dictation was produced using [employer] software. Please excuse any grammatical, word or spelling errors. Plan dated December 06, 2024. The patient is seen today in room 376. He continues on high flow nasal O2 at 8 L. Additional recommendations and suggestions are forthcoming. Labs, x-rays, and medications are reviewed. The patient was quite confused yesterday, and seems a bit more with it today. He does have a sitter in the room. No new labs today other than a glucose of 217. We will continue to follow the patient. Prognosis is guarded. Dictation was produced using [employer] software. Please excuse any grammatical, word or spelling errors. Plan dated December 07, 2024. The patient is again seen in room 376. He continues on high flow nasal O2 at 8 L. The patient will get Solu-Medrol in place of prednisone. Will give him 60 mg every 6 hours. In addition we add budesonide 1 mg, mixed with formoterol 20 mcg, twice a day. His saturations on the 8 L or 93%. I have asked respiratory to try to wean down his FiO2 if possible. Labs, x-rays, and all medications are reviewed. We will continue to follow the patient, and make recommendations along the way. The patient's overall prognosis remains guarded. Dictation was produced using [employer] software. Please excuse any grammatical, word or spelling errors. Plan dated December 08, 2024. The patient is again seen today in room 376. He continues on high flow nasal O2 at 8 L. The patient is currently on IV Solu-Medrol, as well as breathing treatments, budesonide, and formoterol. Saturations are in the low to mid 90s. We will continue to follow the patient, make recommendations along the way. Labs, x-rays, and medications are reviewed. The patient's overall prognosis remains guarded. No additional recommendations are made at this time. Dict ation was produced using [employer] software. Please excuse any grammatical, word or spelling errors. Plan dated December 24, 2024. The patient is stable, and ready for discharge. The patient has been ready for discharge for a number of days. Clinically, he is stable and there is nothing keeping him in the hospital. According to one of the discharge planners that has to do with one of his medications. Nonetheless, the patient is doing well from the pulmonary standpoint, is on room air, and not having any respiratory difficulty or distress. The patient has now been in the hospital for 42 days. Dictation was produced using [employer] software. Please excuse any grammatical, word or spelling errors. Plan dated December 25, 2024. The patient is stable. The patient is not requiring any supplemental oxygen. Respiratory status is stable. Hemodynamic status is stable. The patient is just awaiting discharge. The patient has been ready for discharge for the least a week or so. All labs, x-rays, and medications are reviewed. Prognosis is guarded. Dictation was produced using [employer] software. Please excuse any grammatical, word or spelling errors. Time with Patient: Less than 30
[2024-12-25 17:03] LABS: Glucose,Whole Blood 238 mg/dL (70-110)
--- NOTE | 2024-12-25 17:14 | P.PN ---
Subjective Progress Note Date: 12/25/24 Principal diagnosis: Reason for follow-up is left elbow septic olecranon bursitis/haemophilus pneumonia Patient is a 59-year-old male with a past medical history significant for hypertension seizure disorder atrial fibrillation he did have a metastatic lung cancer has been brought to the hospital for worsening swelling to the left elbow with a culture positive for MRSA concerning for septic olecranon bursitis. On today's evaluation that is 12/25/2024,the patient denies any fever or any chills, patient is breathing comfortably on room air, the patient denies chest pain shortness of breath and no significant cough, patient denies abdominal pain, no nausea vomiting or diarrhea. Mention feeling better. No new lab has been obtained today Objective - Vital Signs Vital signs: Vital Signs Temp 97.5 F L 12/25/24 09:00 Pulse 80 12/25/24 11:46 Resp 16 12/25/24 09:00 BP 99/64 12/25/24 09:00 Pulse Ox 92 L 12/25/24 09:00 FiO2 21 12/25/24 08:41 Intake & Output 12/24/24 12/25/24 12/25/24 18:59 06:59 18:59 Intake Total 660 Output Total 1380 1750 Balance -1380 -1090 Intake: Oral 660 Output: Urine 1380 1750 Other: Voiding Method External Catheter External Catheter # Bowel Movements 1 ABP, PAP, CO, CI - Last Documented Arterial Blood Pressure 131/85 - Exam GENERAL DESCRIPTION: Middle-age male lying in bed in no distress RESPIRATORY SYSTEM: Unlabored breathing , decreased breath sounds at bases HEART: S1 S2 regular rate and rhythm , ABDOMEN: Soft , no tenderness EXTREMITIES: No edema feet - Labs CBC & Chem 7: 12/23/24 05:56 12/23/24 05:56 Labs: Abnormal Lab Results - Last 24 Hours (Table) 12/24/24 12/24/24 12/25/24 Range/Units 17:16 20:42 06:16 POC Glucose (mg/dL) 193 H 203 H 153 H (70-110) mg/dL 12/25/24 Range/Units 11:43 POC Glucose (mg/dL) 251 H (70-110) mg/dL Assessment and Plan (1) Septic olecranon bursitis of left elbow Current Visit: Yes Status: Acute Code(s): M71.122 - OTHER INFECTIVE BURSITIS, LEFT ELBOW SNOMED Code(s): 2557533536576581 (2) Allergy to cephalosporin Current Visit: No Status: Acute Code(s): Z88.1 - ALLERGY STATUS TO OTHER ANTIBIOTIC AGENTS SNOMED Code(s): 131523648 (3) MRSA (methicillin resistant Staphylococcus aureus) infection Current Visit: Yes Status: Acute Code(s): A49.02 - METHICILLIN RESIS STAPH INFECTION, UNSP SITE SNOMED Code(s): 819763937 (4) Influenza A Current Visit: Yes Status: Acute Code(s): J10.1 - FLU DUE TO OTH IDENT INFLUENZA VIRUS W OTH RESP MANIFEST SNOMED Code(s): 734957515 (5) Pneumonia Current Visit: No Status: Acute Code(s): J18.9 - PNEUMONIA, UNSPECIFIED ORGANISM SNOMED Code(s): 798515417 (6) Leukocytosis Current Visit: No Status: Acute Code(s): D72.829 - ELEVATED WHITE BLOOD CELL COUNT, UNSPECIFIED SNOMED Code(s): 798361400 Plan: 1patient being admitted to the hospital for left elbow pain swelling redness he did have a wound with a culture positive for MRSA in the outpatient setting now with concern for left elbow septic olecranon bursitis for the patient received adequate IV vancomycin and did have healing of his left elbow ulcer/olecranon bursitis. 2patient with influenza A for which the patient has completed 5-day course of Tamiflu 3patient is afebrile and has shown overall clinical improvement currently off supplemental oxygen, patient will be advised short course of Diflucan Dictation was produced using [employer] software. please excuse any grammatical, word or spelling errors. Time with Patient: Less than 30
[2024-12-25 20:17] LABS: Glucose,Whole Blood 198 mg/dL (70-110)
--- NOTE | 2024-12-25 22:57 | PN ---
PROGRESS NOTE DATE OF SERVICE: 12/25/2024 CHIEF COMPLAINT: Encephalopathy. HISTORY OF PRESENT ILLNESS: Hospital is still working on a discharge plan. Yesterday was contacted about reducing his Suboxone and this will be done. I am led to believe that if he gets off the Suboxone, then he will be able to go to a [place] [facility]. PHYSICAL EXAMINATION: GENERAL: Unchanged. He is still lethargic. CARDIAC: Same. LUNGS: Same. IMPRESSION: 1. Encephalopathy. 2. Status post pneumonitis with septic shock. PLAN: No change in program. MMODL / IJN: [id number] /
[2024-12-26 06:21] LABS: Glucose,Whole Blood 151 mg/dL (70-110)
[2024-12-26 11:10] LABS: Glucose,Whole Blood 283 mg/dL (70-110)
--- NOTE | 2024-12-26 13:51 | P.PN ---
Subjective Progress Note Date: 12/26/24 Principal diagnosis: Reason for follow-up is left elbow septic olecranon bursitis/haemophilus pneumonia Patient is a 59-year-old male with a past medical history significant for hypertension seizure disorder atrial fibrillation he did have a metastatic lung cancer has been brought to the hospital for worsening swelling to the left elbow with a culture positive for MRSA concerning for septic olecranon bursitis. On today's evaluation that is 12/26/2024,the patient remains to be afebrile, patient is on room air not requiring supplemental oxygen and denies any shortn ess of breath no chest pain or cough.Patient denies having any nausea or vomiting, no abdominal pain and no diarrhea, no new symptoms. No new lab has been obtained today Objective - Vital Signs Vital signs: Vital Signs Temp 98.2 F 12/26/24 12:52 Pulse 99 12/26/24 12:52 Resp 16 12/26/24 12:52 BP 97/67 12/26/24 12:52 Pulse Ox 99 12/26/24 12:52 FiO2 21 12/25/24 08:41 Intake & Output 12/25/24 12/26/24 12/26/24 18:59 06:59 18:59 Intake Total 740 Output Total 300 Balance -300 740 Intake: Oral 740 Output: Urine 300 Other: Voiding Method External Catheter Bedside Commode # Voids 4 # Bowel Movements 2 ABP, PAP, CO, CI - Last Documented Arterial Blood Pressure 131/85 - Exam GENERAL DESCRIPTION: Middle-age male lying in bed in no distress RESPIRATORY SYSTEM: Unlabored breathing , decreased breath sounds at bases HEART: S1 S2 regular rate and rhythm , ABDOMEN: Soft , no tenderness EXTREMITIES: No edema feet - Labs CBC & Chem 7: 12/23/24 05:56 12/23/24 05:56 Labs: Abnormal Lab Results - Last 24 Hours (Table) 12/25/24 12/25/24 12/26/24 Range/Units 17:00 20:15 06:19 POC Glucose (mg/dL) 238 H 198 H 151 H (70-110) mg/dL 12/26/24 Range/Units 11:07 POC Glucose (mg/dL) 283 H (70-110) mg/dL Assessment and Plan (1) Septic olecranon bursitis of left elbow Current Visit: Yes Status: Acute Code(s): M71.122 - OTHER INFECTIVE BURSITIS, LEFT ELBOW SNOMED Code(s): 3987085746241926 (2) Allergy to cephalosporin Current Visit: No Status: Acute Code(s): Z88.1 - ALLERGY STATUS TO OTHER ANTIBIOTIC AGENTS SNOMED Code(s): 569367920 (3) MRSA (methicillin resistant Staphylococcus aureus) infection Current Visit: Yes Status: Acute Code(s): A49.02 - METHICILLIN RESIS STAPH INFECTION, UNSP SITE SNOMED Code(s): 521948121 (4) Influenza A Current Visit: Yes Status: Acute Code(s): J10.1 - FLU DUE TO OTH IDENT INFLUENZA VIRUS W OTH RESP MANIFEST SNOMED Code(s): 998129162 (5) Pneumonia Current Visit: No Status: Acute Code(s): J18.9 - PNEUMONIA, UNSPECIFIED ORGANISM SNOMED Code(s): 096565843 (6) Leukocytosis Current Visit: No Status: Acute Code(s): D72.829 - ELEVATED WHITE BLOOD CELL COUNT, UNSPECIFIED SNOMED Code(s): 613483396 Plan: 1patient being admitted to the hospital for left elbow pain swelling redness he did have a wound with a culture positive for MRSA in the outpatient setting now with concern for left elbow septic olecranon bursitis for the patient received adequate IV vancomycin and did have healing of his left elbow ulcer/olecranon bursitis. 2patient with influenza A for which the patient has completed 5-day course of Tamiflu and also have pneumonia during this hospital admission for the patient has completed antibiotic therapy 3patient remains to be afebrile and has shown overall clinical improvement currently off supplemental oxygen on oral Diflucan check a CBC with a.m. lab monitor clinical course closely Dictation was produced using [employer] dictation software. please excuse any grammatical, word or spelling errors. Time with Patient: Less than 30
--- NOTE | 2024-12-26 14:00 | P.PN ---
Subjective Progress Note Date: 12/26/24 Principal diagnosis: Mental status changes. Patient is a 59-year-old male with past medical history significant for hypertension, atrial fibrillation, polysubstance abuse, seizure disorder, previous ventilator dependent respiratory failure, lung cancer with brain mets status post chemo and radiation. More recently, patient's been following at the [facility] for multiple wounds. He was noted to be confused. Left elbow was erythemic and warm thought to be olecranon bursitis. Wound culture of the left elbow positive for methicillin-resistant Staphylococcus aureus. Sent to the emergency department for IV antibiotics on 11/12/2024. He was admitted to the cardiac stepdown unit. Apparently, noted to have increased work of breathing, and placed on BiPAP. Pulmonary consult was placed. Patient currently being evaluated in room 350. Remains confused, lethargic and will not answer my questions. There is a bedside sitter. Brain CT done on admission did not show any acute intracranial bleeding or mass effect. Postsurgical changes in the right posterior parietal and posterior left parietal occipital lobes with craniotomy. Patient currently on BiPAP with settings 12/6 and FiO2 of 40%. Nonlabored breathing. Achieving adequate tidal volumes. Previous VBG showing a pH of 7.33, pCO2 of 47. Chest x-ray showing diffuse interstitial densities, consider CHF versus atypical pneumonias. Is afebrile. CBC: WBC count 9.6, hemoglobin 14.8, platelets 316. CMP: sodium 142, potassium 2.4, chloride 103, serum bicarb 22, BUN 59, creatinine 1.2, glucose 96. Urinalysis unremarkable for infection. LFTs not elevated. Troponin 0.06. Admission EKG: Atrial fibr illation with controlled ventricular response, rate 81 bpm, RBBB pattern. Current most recent vital signs: Temperature 97.9 F, heart rate 109 bpm, blood pressure 123/75 mmHg, nontachypneic, on the above-mentioned BiPAP settings, SpO2 99%. Progress note dated November 15, 2024. 59-year-old male who is seen today in room 350. He is in bed, on 5 L nasal cannula. The BiPAP device is set at 10/5 and 40%. He is not receiving any IV fluids. The patient has a history of hypertension, atrial fibrillation, polysubstance abuse, seizure disorder, previous ventilator dependent respiratory failure, lung cancer, with brain mets. The patient was transferred over to the hospital, because of an elbow infection, secondary to MRSA, to receive IV antibiotics in the form of vancomycin. Current laboratory data includes a white count 13, hemoglobin 12.2, hematocrit 38.8, and a platelet count of 290,000. Sodium 144, potassium 2.4, chlorides 113, CO2 23, BUN 31, and creatinine 0.61. Glucose is 115. Troponin was 0.036. N-terminal proBNP was 5560. Procalcitonin level was normal at 0.13. Blood cultures are currently negative. Chest x-ray shows significant opacification of the left lung. The right lung looks relatively normal save for possible infiltrate or atelectasis at the right lung base medially. Progress note dated November 16, 2024. 59-year-old male seen today in room 350. The patient is currently on 6 L of oxygen by nasal cannula. The patient is not receiving any fluids. He is receiving vancomycin for his MRSA infection. Clinically, he is a bit more awake and alert today than he was yesterday. Current laboratory data includes a white count 12.6, hemoglobin 13.5, hematocrit 41.6, and a platelet count of 297,000. Sodium 146, potassium 2.6, chlorides 111, CO2 25, anion gap 10, BUN 23, creatinine 0.58. Blood cultures are negative. Progress note dated November 17, 2024. 59-year-old male seen today in room 350. Currently, the patient is on nasal O2, at 5 L. He is getting saline at 5 cc an hour. According to the nurse, the patient has been having tachycardia, i.e. atrial fibrillation with RVR, and the primary service is being notified, so that may be cardiology can see the patient. Currently, white count 16.3, hemoglobin 14.1, hematocrit 44.1, platelet count 3 26,000. Sodium 147, potassium 2.8, chlorides 113, CO2 24, BUN 18, creatinine 0.6. Glucose is 204. Calcium 9.2. Procalcitonin level was normal at 0.13. Blood cultures are negative. Chest x-ray apparently shows improving aeration to the left lung. Patient was seen today on 11/30/2024, remains in the ICU, patient was extubated yesterday initially to BiPAP 09/06/50% now on nasal cannula patient is requiring Precedex, and intermittently has been requiring Haldol for extreme agitation, and yelling and cursing people around him. He is on Precedex at 0.6, he is also on Zosyn, and on Tamiflu. Today I recommended Haldol on a as needed basis, he will receive 4 mg IV push every 6 hours as needed. And he will remain on Precedex, chest x-ray continues show evidence of bilateral airspace disease. Patient will definitely need to remain in the ICU, no plans to get him transferred to the floor as he remains marginal at best. WBC count 6.9 hemoglobin 9.7 electrolytes are normal renal profile is normal Patient was seen today on 12/01/2024, patient remains in the ICU, has been tolerating the extubation well, intermittently on BiPAP 09/06/50% presently on nasal cannula, he is sitting in a chair, does not seem to be in distress. And his mentation seems to be much improved. He is not as restless and agitated agitated seems to be better since he was placed back on his Subutex. Not requir ing Haldol anymore. And not requiring any Precedex. Labs reviewed today he had relatively normal CBC WBC count is 10.2 hemoglobin is 10.0 electrolytes are normal renal profile is normal blood sugar is 121 chest x-ray continues show bibasilar patchy airspace disease opacities and interstitial prominence The patient is seen today December 02, 2024 in follow-up in the intensive care unit. He is currently awake and alert in no acute distress. He is sitting up in a chair at the bedside. He is maintaining O2 saturations in the 90s on 12 L high flow nasal cannula. He has normal saline at 10 mL/h. He remains on Zosyn. Blood culture revealed no growth. Sputum culture was positive for haemophilus influenza. White count 8.6. Hemoglobin 10.0. Platelets 199. Sodium 138. Potassium 4.2. Bicarb 29. BUN 20. Creatinine 0.59. Glucose 91. He remains on DuoNeb inhalations and prednisone. Heparin for DVT prophylaxis. Chest x-ray reveals multifocal patchy airspace opacities concerning for pneumonia. The patient is seen today December 03, 2024 in follow-up in the intensive care unit. He is currently sitting up in a chair. Awake and alert in no acute distress. He is confused at times. hip hop dance instructor is at the bedside. He is maintaining good O2 saturations in the 90s on 7 L high flow nasal cannula. He remains on Zosyn. He has not utilized BiPAP in greater than 24 hours. Continued on DuoNeb and elations. Continued on prednisone. Remains on Subutex. Chest x-ray read shows unchanged multifocal patchy airspace opacities. More pronounced throughout the right lung. Progress note dated December 04, 2024. 59-year-old male seen today in room 376. The patient is on a liter high flow O2. He is receiving IV Zosyn. For the past number of days, he was in the intensive care unit. Clinically, he appears to be relatively stable. He denies any shortness of breath, cough, wheezing, chest tightness. No new labs today other than a glucose of 144. Sputum sampling from November 26 shows evidence of Haemophilus influenzae. Recent chest x-ray dated December 03, 2024 shows unchanged multifocal patchy airspace opacities, concerning for pneumonia, throughout the right lung. Progress note dated December 05, 2024. 59-year-old male seen today in room 376. The patient is confused. He is got a sitter at the bedside. He is on 8 L nasal cannula. He is not receiving any IV fluids. The patient was talking about going fishing. Laboratory data includes a glucose of 110. Sputum from November 26 was positive for Haemophilus influenzae. Progress note dated December 06, 2024. 59-year-old male seen today in room 376. The patient has a sitter in the room. He is on a liter high flow nasal O2. No IV fluids. The patient's examination reveals coarse rhonchi. Will add some prednisone to his regimen. The patient is not on home oxygen. No new labs today other than a glucose of 217. Yeste rday, the patient was quite confused, and thought he was going fishing. Today, he seems a bit more with it. Progress note dated December 07, 2024. 59-year-old male seen today in room 376. The patient continues on a liter high flow nasal O2. The patient is quite bronchospastic, and he will be given Solu- Medrol in place of prednisone, and we will add back budesonide, and formoterol. The patient continues on high flow O2, at 8 L. Laboratory data includes a glucose of 124. No additional laboratory are noted. Sputum from November 26 was positive for Haemophilus influenzae. No recent chest x-ray. Progress note dated December 08, 2024. 59-year-old male seen today in room 376. The patient is currently on high flow nasal O2 at 8 L. The patient was given corticosteroids yesterday, IV, because of his ongoing bronchospasm. He also continues on budesonide, formoterol, and breathing treatments. Clinically, the patient looks relatively stable, and sounds much worse that he looks. He does have a sitter in the room. No new labs today other than a glucose of 241. The patient is seen today December 18, 2024 in follow-up on the selective care unit. He was transferred out of the intensive care unit yesterday. He remains awake and alert. Oriented to person only. hip hop dance instructor at the bedside. He is maintaining good O2 saturations in the 90s on room air. He has been afebrile. Hemodynamically stable. MRI of the brain revealed no evidence of acute/subacute CVA. There is bilateral parietal lesions which have decreased in size compared to November 08, 2023. White count 15.7. Hemoglobin 11.6. Platelets 308. Sodium 142. Potassium 3.8. Bicarb 27. BUN 41. Creatinine 0.80. Glucose 121. Patient's, Pulmicort and Perforomist inhalations, prednisone taper. Remains on antibiotics in the form of Zosyn. Heparin for DVT prophylaxis. Remains on IV diuretics. Currently in a -330 mL balance. The patient is seen today December 19, 2024 in follow-up to the regular medical floor. He is currently sitting up in a chair. Awake and alert in no acute distress. He is calm and cooperative. No health and safety director at the bedside. He remains on DuoNeb inhalations, Pulmicort and performance inhalations, prednisone taper. Heparin for DVT prophylaxis. Remains on IV diuretics. Remains on Zo syn. Culture was positive for haemophilus influenza nearly 1 month ago. White count 17.4 hemoglobin 12.1. Platelets 304. C-reactive protein 1.30. Currently in a -800 mL balance. The patient is seen today December 20, 2024 in follow-up on the regular medical floor. He is awake and alert in no acute distress. Calm and cooperative. He is sitting up in a chair at the bedside. He denies any worsening shortness of breath, cough or congestion. He is maintaining good O2 saturations in the 90s on room air. Glucose 167. He remains on DuoNeb inhalations, Pulmicort and Perforomist inhalations, prednisone taper. He remains on antibiotics in the form of Zosyn per ID service. Heparin for DVT prophylaxis. Remains on IV diuretics. Currently in the -2.5 L balance. The patient is seen today December 21, 2024 in follow-up on the regular medical floor. He is sitting up in bed. Awake and alert in no acute distress. He is calm and cooperative. He denies any worsening shortness of breath, cough or congestion. He is maintaining good O2 saturations in the 90s on room air. He has been afebrile. Hemodynamically stable. Globin 12.4. Platelets 251. Sodium 136. Potassium 4.1. Bicarb 24. BUN 35. Creatinine 0.86. Glucose 94. Procalcitonin negative at 0.12. Remains on Diflucan and Zosyn per ID service. He is continued on DuoNeb inhalations, Symbicort, prednisone taper. Heparin for DVT prophylaxis. Remains on oral diuretics. Oral Diamox. Currently in a -1.2 L balance. The patient is seen today December 22, 2024 in follow-up on the regular medical floor. He is currently up in a chair. Awake and alert in no acute distress. He is improving daily. He remains on DuoNeb and elations, Symbicort, prednisone taper. Remains on oral Lasix and Diamox. Heparin for DVT prophylaxis. Continued on Diflucan and Zosyn. Original sputum from November 26, 2024 was positive for haemophilus influenza. Glucose 92. Currently in a -3.3 L balance. The patient is seen today December 23, 2024 in follow-up on the regular medical floor. He is awake and alert in no acute distress. He remains calm and cooperative. He is maintaining good O2 saturations in the 90s on room air. White count 19.2. Hemoglobin 11.6. Platelets 220. Sodium 141. Potassium 4.0. Bicarb 25. BUN 35. Creatinine 0.8. Glucose 128. He remains on DuoNeb inhalations, Symbicort, prednisone taper. Completed Zosyn. He remains on heparin for DVT prophylaxis. Remains on oral diuretics. Remains on Diflucan. Progress note dated December 24, 2024. The patient is again seen today in room 454. The patient has now been in the hospital for 42 days. He is on room air. He is not requiring any IV fluids. Clinically, he is stable, and could be discharged. Apparently there is some confusion as to his medications, which she can or cannot have at the prison or rehab facility. Nonetheless, the patient does not need to be in the acute care facility any longer. No new labs today other than a glucose of 160. Continues on fluconazole, and is currently on prednisone 30 mg a day. Clinically he is very stable. No respiratory distress, cough, wheezing, chest tightness, phlegm production, etc. Progress note dated December 25, 2024. 59-year-old male who is now been in the hospital for 43 days. The patient is on room air. He is not requiring any IV fluids. Clinically, he has been stable for a number of days, and could have been discharged a week ago. Not sure what holding up the discharge is all about. No new laboratory data other than a glucose of 251. The patient is pretty much at baseline. He denies any unusual or worsening shortness of breath, cough, wheezing, chest tightness, phlegm pro duction, chest pain or pressure. Progress note dated December 26, 2024. 59-year-old male now who has been here for 44 days. The patient is ready for discharge. He is on room air. He is not receiving any IV fluids. We are not quite sure what is holding up the discharge. Anyway, the patient is not having any issues or problems. He denies any worsening shortness of breath, cough, wheezing, chest tightness, or phlegm production. He also denies any chest pain or pressure. No new labs today other than a glucose of 283. Objective - Vital Signs Vital signs: Vital Signs Temp 98.2 F 12/26/24 12:52 Pulse 90 12/26/24 12:58 Resp 16 12/26/24 12:52 BP 97/67 12/26/24 12:52 Pulse Ox 99 12/26/24 12:52 FiO2 21 12/25/24 08:41 Intake & Output 12/25/24 12/26/24 12/26/24 18:59 06:59 18:59 Intake Total 740 Output Total 300 Balance -300 740 Weight 69.8 kg Intake: Oral 740 Output: Urine 300 Other: Voiding Method External Catheter Bedside Commode # Voids 4 # Bowel Movements 2 ABP, PAP, CO, CI - Last Documented Arterial Blood Pressure 131/85 - Exam No acute distress, awake and alert, currently on room air. HEENT examination is grossly unremarkable. Mucous membranes are moist. No oral lesions. Neck supple. Full range of motion. No adenopathy thyromegaly or neck vein distention. Cardiovascular examination reveals an irregular rhythm and rate. S1-S2 normal. No S3 or S4. No discernible murmur noted. Heart sounds are distant. Lungs reveal scattered mild bilateral rhonchi. No wheezes or crackles. Breath sounds equal. Abdomen soft bowel sounds are heard. No masses or tenderness. Extremities are intact. No cyanosis clubbing or edema. Skin reveals no significant rashes. Neurologic examination is brief but nonfocal. - Labs CBC & Chem 7: 12/23/24 05:56 12/23/24 05:56 Labs: Abnormal Lab Results - Last 24 Hours (Table) 12/25/24 12/25/24 12/26/24 Range/Units 17:00 20:15 06:19 POC Glucose (mg/dL) 238 H 198 H 151 H (70-110) mg/dL 12/26/24 Range/Units 11:07 POC Glucose (mg/dL) 283 H (70-110) mg/dL Assessment and Plan Assessment: Acute on chronic hypoxic and hypercapnic respiratory failure, requiring intubation and mechanical ventilation shortly after he received Ativan for agitation on the medical floor. Extubated on 11/29/2024. Recovered and on room air oxygen. Haemophilus influenza pneumonia, in the setting of acute influenza A infection/superimposed bacterial pneumonia. Remains on Zosyn per ID service. Procalcitonin 0.12. Acute influenza A infection, completed Tamiflu. Atrial fibrillation with controlled ventricular response. 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 Most recently treated with Tecentriq. CAT scan of the chest done on 11/18/2024 shows no evidence of any residual tumor or tumor progression. History of metastatic brain lesions. 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 MRI of the brain December 17, 2024 revealed bilateral parietal lesions which have decreased in size compared to November 08, 2023. History of seizures. Chronic metabolic encephalopathy, multifactorial mostly with chronic hypercapnia. Hypertension. Striae of polysubstance abuse. Olecranon bursitis, wound culture positive for methicillin-resistant Staphylococcus aureus. Plan: Plan dated November 15, 2024. The patient is seen in room 350. Currently he is on 5 L nasal cannula. He is not receiving any IV fluids. The patient has a BiPAP device in the room, with settings of 10/5, and 40% that he uses intermittently. All labs, x-rays, medications are reviewed. Will go ahead and get a follow-up chest x-ray in the morning. Additional recommendations and suggestions are forthcoming. Initial chest x-ray revealed relatively clear lung ayon, but the more recent x-ray shows some opacification, in the left lung. Prognosis is guarded. CODE STATUS should be addressed by the primary service. 50 minutes was spent with this patient, in the process of gathering data examining the patient, reviewing pertinent laboratory data x-rays, and medications, as well as discussing the diagnosis, treatment, prognosis, with the patient's primary nursing staff. Di ctation was produced using LATTOation software. Please excuse any grammatical, word or spelling errors. Plan dated November 16, 2024. The patient was seen today in room 350. The patient is currently on 6 L nasal cannula. He is much more awake and alert. No respiratory distress. He is not receiving any IV fluids. The patient does continue on vancomycin. Labs, x- rays, and all medications are reviewed. CODE STATUS should be addressed by the primary service. A chest x-ray will be ordered for the morning. 50 minutes was spent with this patient, in the process of gathering data, examining the patient, reviewing pertinent laboratory data, x-rays, medications, as well as discussing diagnosis, treatment plan, prognosis, with the patient's primary nursing staff, and the patient himself. As mentioned, he was much more awake and alert today. Dictation was produced using Sk[employer]ide software. Please excuse any grammatical, word or spelling errors. Plan dated November 17, 2024. The patient is seen again in room 350. The patient has developed atrial fibrillation with RVR. The primary service is being contacted, to ask whether or not cardiology can see this patient. Currently, the patient continues on vancomycin, for an infected elbow, with MRSA. CODE STATUS should be addressed by the primary service. All labs, x-rays, and medications are reviewed. The patient is currently on 5 L nasal cannula. He is getting saline at 5 cc an hour. We will continue to follow make recommendations. 50 minutes was spent with the patient, which included obtaining additional history, speaking to the bedside nurse, examining the patient, reviewing pertinent laboratory data, x- rays, and medications, as well as discussing the diagnosis, treatment, prognosis, with the patient. We will continue to follow. Dictation was produced using Sk[employer]ide software. Please excuse any grammatical, word or spelling errors. Plan dated December 04, 2024. The patient is seen today in room 376. He continues on high flow nasal O2, at 8 L. Saturations were in the mid 90s. He continues on IV Zosyn. The patient also continues on DVT prophylaxis and GI prophylaxis. Labs, x-rays, and all medications were reviewed. We will continue to follow and make recommendations along the way. Eventually, the patient is to be transferred back to a prison, down in [place]. We will continue to follow make recommendations. Prognosis is guarded. Dictation was produced using Sk[employer]ide software. Please excuse any grammatical, word or spelling errors. Plan dated December 05, 2024. The patient was sitting on his bed, and he was very confused, and had a sitter at the bedside. He was talking about fishing. The patient continues on 8 L of oxygen. Labs, x-rays, and all medications are reviewed. The patient continues on Augmentin. He also continues on DuoNeb updrafts. We will continue to follow and make a recommendation where appropriate. Respiratory status is still tenuous. All labs, x-rays, and medications are reviewed. Dictation was produced using Sk[employer]ide software. Please excuse any grammatical, word or spelling errors. Plan dated December 06, 2024. The patient is seen today in room 376. He continues on high flow nasal O2 at 8 L. Additional recommendations and suggestions are forthcoming. Labs, x-rays, and medications are reviewed. The patient was quite confused yesterday, and seems a bit more with it today. He does have a sitter in the room. No new labs today other than a glucose of 217. We will continue to follow the patient. Pr ognosis is guarded. Dictation was produced using Sk[employer]ide software. Please excuse any grammatical, word or spelling errors. Plan dated December 07, 2024. The patient is again seen in room 376. He continues on high flow nasal O2 at 8 L. The patient will get Solu-Medrol in place of prednisone. Will give him 60 mg every 6 hours. In addition we add budesonide 1 mg, mixed with formoterol 20 mcg, twice a day. His saturations on the 8 L or 93%. I have asked respiratory to try to wean down his FiO2 if possible. Labs, x-rays, and all medications are reviewed. We will continue to follow the patient, and make recommendations along the way. The patient's overall prognosis remains guarded. Dictation was produced using [employer] software. Please excuse any grammatical, word or spelling errors. Plan dated December 08, 2024. The patient is again seen today in room 376. He continues on high flow nasal O2 at 8 L. The patient is currently on IV Solu-Medrol, as well as breathing treatments, budesonide, and formoterol. Saturations are in the low to mid 90s. We will continue to follow the patient, make recommendations along the way. Labs, x-rays, and medications are reviewed. The patient's overall prognosis remains guarded. No additional recommendations are made at this time. Dictation was produced using [employer] software. Please excuse any grammatical, word or spelling errors. Plan dated December 24, 2024. The patient is stable, and ready for discharge. The patient has been ready for discharge for a number of days. Clinically, he is stable and there is nothing keeping him in the hospital. According to one of the discharge planners that has to do with one of his medications. Nonetheless, the patient is doing well from the pulmonary standpoint, is on room air, and not having any respiratory difficulty or distress. The patient has now been in the hospital for 42 days. Dictation was produced using Sk[employer]ide software. Please excuse any gr ammatical, word or spelling errors. Plan dated December 25, 2024. The patient is stable. The patient is not requiring any supplemental oxygen. Respiratory status is stable. Hemodynamic status is stable. The patient is just awaiting discharge. The patient has been ready for discharge for the least a week or so. All labs, x-rays, and medications are reviewed. Prognosis is guarded. Dictation was produced using [employer] software. Please excuse any grammatical, word or spelling errors. Plan dated December 26, 2024. The patient is seen today in room 454. The patient remains on room air. The patient is not receiving any IV fluids. Labs, x-rays, and all medications are reviewed. As mentioned above, the patient has been ready for discharge for a number of days now. He has been at this hospital for 44 days. No need to have inpatient stay at this point. Dictation was produced using [employer] software. Please excuse any grammatical, word or spelling errors. Time with Patient: Less than 30
[2024-12-26 16:17] LABS: Glucose,Whole Blood 268 mg/dL (70-110)
[2024-12-26 21:03] LABS: Glucose,Whole Blood 216 mg/dL (70-110)
[2024-12-26 22:03] LABS: Glucose,Whole Blood 135 mg/dL (70-110)
[2024-12-26] MEDS: guaiFENesin 600 MG TABLET.ER PO PRN (22:27)
--- NOTE | 2024-12-26 23:06 | PN ---
PROGRESS NOTE DATE OF SERVICE: 12/26/2024 CHIEF COMPLAINT: Encephalopathy. HISTORY OF PRESENT ILLNESS: This gentleman is stable and his condition is unchanged. We are waiting for discharge. Apparently, no shelter will take him while he is on Suboxone and this is being tapered. PHYSICAL EXAMINATION: CHEST: Clear. CARDIAC: Unchanged. ABDOMEN: Soft, nontender. IMPRESSION: 1. Encephalopathy. 2. Status post pneumonitis with sepsis. 3. CA of the lung. PLAN: Taper Suboxone. MMODL / IJN: [id number] /
[2024-12-27 06:06] LABS: Glucose,Whole Blood 168 mg/dL (70-110)
[2024-12-27 11:34] LABS: Glucose,Whole Blood 281 mg/dL (70-110)
--- NOTE | 2024-12-27 11:59 | P.PN ---
Subjective Progress Note Date: 12/27/24 Principal diagnosis: Mental status changes. Patient is a 59-year-old male with past medical history significant for hypertension, atrial fibrillation, polysubstance abuse, seizure disorder, previous ventilator dependent respiratory failure, lung cancer with brain mets status post chemo and radiation. More recently, patient's been following at the [facility] for multiple wounds. He was noted to be confused. Left elbow was erythemic and warm thought to be olecranon bursitis. Wound culture of the left elbow positive for methicillin-resistant Staphylococcus aureus. Sent to the emergency department for IV antibiotics on 11/12/2024. He was admitted to the cardiac stepdown unit. Apparently, noted to have increased work of breathing, and placed on BiPAP. Pulmonary consult was placed. Patient currently being evaluated in room 350. Remains confused, lethargic and will not answer my questions. There is a bedside sitter. Brain CT done on admission did not show any acute intracranial bleeding or mass effect. Postsurgical changes in the right posterior parietal and posterior left parietal occipital lobes with craniotomy. Patient currently on BiPAP with settings 12/6 and FiO2 of 40%. Nonlabored breathing. Achieving adequate tidal volumes. Previous VBG showing a pH of 7.33, pCO2 of 47. Chest x-ray showing diffuse interstitial densities, consider CHF versus atypical pneumonias. Is afebrile. CBC: WBC count 9.6, hemoglobin 14.8, platelets 316. CMP: sodium 142, potassium 2.4, chloride 103, serum bicarb 22, BUN 59, creatinine 1.2, glucose 96. Urinalysis unremarkable for infection. LFTs not elevated. Troponin 0.06. Admission EKG: Atrial fibr illation with controlled ventricular response, rate 81 bpm, RBBB pattern. Current most recent vital signs: Temperature 97.9 F, heart rate 109 bpm, blood pressure 123/75 mmHg, nontachypneic, on the above-mentioned BiPAP settings, SpO2 99%. Progress note dated November 15, 2024. 59-year-old male who is seen today in room 350. He is in bed, on 5 L nasal cannula. The BiPAP device is set at 10/5 and 40%. He is not receiving any IV fluids. The patient has a history of hypertension, atrial fibrillation, polysubstance abuse, seizure disorder, previous ventilator dependent respiratory failure, lung cancer, with brain mets. The patient was transferred over to the hospital, because of an elbow infection, secondary to MRSA, to receive IV antibiotics in the form of vancomycin. Current laboratory data includes a white count 13, hemoglobin 12.2, hematocrit 38.8, and a platelet count of 290,000. Sodium 144, potassium 2.4, chlorides 113, CO2 23, BUN 31, and creatinine 0.61. Glucose is 115. Troponin was 0.036. N-terminal proBNP was 5560. Procalcitonin level was normal at 0.13. Blood cultures are currently negative. Chest x-ray shows significant opacification of the left lung. The right lung looks relatively normal save for possible infiltrate or atelectasis at the right lung base medially. Progress note dated November 16, 2024. 59-year-old male seen today in room 350. The patient is currently on 6 L of oxygen by nasal cannula. The patient is not receiving any fluids. He is receiving vancomycin for his MRSA infection. Clinically, he is a bit more awake and alert today than he was yesterday. Current laboratory data includes a white count 12.6, hemoglobin 13.5, hematocrit 41.6, and a platelet count of 297,000. Sodium 146, potassium 2.6, chlorides 111, CO2 25, anion gap 10, BUN 23, creatinine 0.58. Blood cultures are negative. Progress note dated November 17, 2024. 59-year-old male seen today in room 350. Currently, the patient is on nasal O2, at 5 L. He is getting saline at 5 cc an hour. According to the nurse, the patient has been having tachycardia, i.e. atrial fibrillation with RVR, and the primary service is being notified, so that may be cardiology can see the patient. Currently, white count 16.3, hemoglobin 14.1, hematocrit 44.1, platelet count 3 26,000. Sodium 147, potassium 2.8, chlorides 113, CO2 24, BUN 18, creatinine 0.6. Glucose is 204. Calcium 9.2. Procalcitonin level was normal at 0.13. Blood cultures are negative. Chest x-ray apparently shows improving aeration to the left lung. Patient was seen today on 11/30/2024, remains in the ICU, patient was extubated yesterday initially to BiPAP 09/06/50% now on nasal cannula patient is requiring Precedex, and intermittently has been requiring Haldol for extreme agitation, and yelling and cursing people around him. He is on Precedex at 0.6, he is also on Zosyn, and on Tamiflu. Today I recommended Haldol on a as needed basis, he will receive 4 mg IV push every 6 hours as needed. And he will remain on Precedex, chest x-ray continues show evidence of bilateral airspace disease. Patient will definitely need to remain in the ICU, no plans to get him transferred to the floor as he remains marginal at best. WBC count 6.9 hemoglobin 9.7 electrolytes are normal renal profile is normal Patient was seen today on 12/01/2024, patient remains in the ICU, has been tolerating the extubation well, intermittently on BiPAP 09/06/50% presently on nasal cannula, he is sitting in a chair, does not seem to be in distress. And his mentation seems to be much improved. He is not as restless and agitated agitated seems to be better since he was placed back on his Subutex. Not requir ing Haldol anymore. And not requiring any Precedex. Labs reviewed today he had relatively normal CBC WBC count is 10.2 hemoglobin is 10.0 electrolytes are normal renal profile is normal blood sugar is 121 chest x-ray continues show bibasilar patchy airspace disease opacities and interstitial prominence The patient is seen today December 02, 2024 in follow-up in the intensive care unit. He is currently awake and alert in no acute distress. He is sitting up in a chair at the bedside. He is maintaining O2 saturations in the 90s on 12 L high flow nasal cannula. He has normal saline at 10 mL/h. He remains on Zosyn. Blood culture revealed no growth. Sputum culture was positive for haemophilus influenza. White count 8.6. Hemoglobin 10.0. Platelets 199. Sodium 138. Potassium 4.2. Bicarb 29. BUN 20. Creatinine 0.59. Glucose 91. He remains on DuoNeb inhalations and prednisone. Heparin for DVT prophylaxis. Chest x-ray reveals multifocal patchy airspace opacities concerning for pneumonia. The patient is seen today December 03, 2024 in follow-up in the intensive care unit. He is currently sitting up in a chair. Awake and alert in no acute distress. He is confused at times. special services director is at the bedside. He is maintaining good O2 saturations in the 90s on 7 L high flow nasal cannula. He remains on Zosyn. He has not utilized BiPAP in greater than 24 hours. Continued on DuoNeb and elations. Continued on prednisone. Remains on Subutex. Chest x-ray read shows unchanged multifocal patchy airspace opacities. More pronounced throughout the right lung. Progress note dated December 04, 2024. 59-year-old male seen today in room 376. The patient is on a liter high flow O2. He is receiving IV Zosyn. For the past number of days, he was in the intensive care unit. Clinically, he appears to be relatively stable. He denies any shortness of breath, cough, wheezing, chest tightness. No new labs today other than a glucose of 144. Sputum sampling from November 26 shows evidence of Haemophilus influenzae. Recent chest x-ray dated December 03, 2024 shows unchanged multifocal patchy airspace opacities, concerning for pneumonia, throughout the right lung. Progress note dated December 05, 2024. 59-year-old male seen today in room 376. The patient is confused. He is got a sitter at the bedside. He is on 8 L nasal cannula. He is not receiving any IV fluids. The patient was talking about going fishing. Laboratory data includes a glucose of 110. Sputum from November 26 was positive for Haemophilus influenzae. Progress note dated December 06, 2024. 59-year-old male seen today in room 376. The patient has a sitter in the room. He is on a liter high flow nasal O2. No IV fluids. The patient's examination reveals coarse rhonchi. Will add some prednisone to his regimen. The patient is not on home oxygen. No new labs today other than a glucose of 217. Yeste rday, the patient was quite confused, and thought he was going fishing. Today, he seems a bit more with it. Progress note dated December 07, 2024. 59-year-old male seen today in room 376. The patient continues on a liter high flow nasal O2. The patient is quite bronchospastic, and he will be given Solu- Medrol in place of prednisone, and we will add back budesonide, and formoterol. The patient continues on high flow O2, at 8 L. Laboratory data includes a glucose of 124. No additional laboratory are noted. Sputum from November 26 was positive for Haemophilus influenzae. No recent chest x-ray. Progress note dated December 08, 2024. 59-year-old male seen today in room 376. The patient is currently on high flow nasal O2 at 8 L. The patient was given corticosteroids yesterday, IV, because of his ongoing bronchospasm. He also continues on budesonide, formoterol, and breathing treatments. Clinically, the patient looks relatively stable, and sounds much worse that he looks. He does have a sitter in the room. No new labs today other than a glucose of 241. The patient is seen today December 18, 2024 in follow-up on the selective care unit. He was transferred out of the intensive care unit yesterday. He remains awake and alert. Oriented to person only. special services director at the bedside. He is maintaining good O2 saturations in the 90s on room air. He has been afebrile. Hemodynamically stable. MRI of the brain revealed no evidence of acute/subacute CVA. There is bilateral parietal lesions which have decreased in size compared to November 08, 2023. White count 15.7. Hemoglobin 11.6. Platelets 308. Sodium 142. Potassium 3.8. Bicarb 27. BUN 41. Creatinine 0.80. Glucose 121. Patient's, Pulmicort and Perforomist inhalations, prednisone taper. Remains on antibiotics in the form of Zosyn. Heparin for DVT prophylaxis. Remains on IV diuretics. Currently in a -330 mL balance. The patient is seen today December 19, 2024 in follow-up to the regular medical floor. He is currently sitting up in a chair. Awake and alert in no acute distress. He is calm and cooperative. No supervisor safety deposit at the bedside. He remains on DuoNeb inhalations, Pulmicort and performance inhalations, prednisone taper. Heparin for DVT prophylaxis. Remains on IV diuretics. Remains on Zo syn. Culture was positive for haemophilus influenza nearly 1 month ago. White count 17.4 hemoglobin 12.1. Platelets 304. C-reactive protein 1.30. Currently in a -800 mL balance. The patient is seen today December 20, 2024 in follow-up on the regular medical floor. He is awake and alert in no acute distress. Calm and cooperative. He is sitting up in a chair at the bedside. He denies any worsening shortness of breath, cough or congestion. He is maintaining good O2 saturations in the 90s on room air. Glucose 167. He remains on DuoNeb inhalations, Pulmicort and Perforomist inhalations, prednisone taper. He remains on antibiotics in the form of Zosyn per ID service. Heparin for DVT prophylaxis. Remains on IV diuretics. Currently in the -2.5 L balance. The patient is seen today December 21, 2024 in follow-up on the regular medical floor. He is sitting up in bed. Awake and alert in no acute distress. He is calm and cooperative. He denies any worsening shortness of breath, cough or congestion. He is maintaining good O2 saturations in the 90s on room air. He has been afebrile. Hemodynamically stable. Globin 12.4. Platelets 251. Sodium 136. Potassium 4.1. Bicarb 24. BUN 35. Creatinine 0.86. Glucose 94. Procalcitonin negative at 0.12. Remains on Diflucan and Zosyn per ID service. He is continued on DuoNeb inhalations, Symbicort, prednisone taper. Heparin for DVT prophylaxis. Remains on oral diuretics. Oral Diamox. Currently in a -1.2 L balance. The patient is seen today December 22, 2024 in follow-up on the regular medical floor. He is currently up in a chair. Awake and alert in no acute distress. He is improving daily. He remains on DuoNeb and elations, Symbicort, prednisone taper. Remains on oral Lasix and Diamox. Heparin for DVT prophylaxis. Continued on Diflucan and Zosyn. Original sputum from November 26, 2024 was positive for haemophilus influenza. Glucose 92. Currently in a -3.3 L balance. The patient is seen today December 23, 2024 in follow-up on the regular medical floor. He is awake and alert in no acute distress. He remains calm and cooperative. He is maintaining good O2 saturations in the 90s on room air. White count 19.2. Hemoglobin 11.6. Platelets 220. Sodium 141. Potassium 4.0. Bicarb 25. BUN 35. Creatinine 0.8. Glucose 128. He remains on DuoNeb inhalations, Symbicort, prednisone taper. Completed Zosyn. He remains on heparin for DVT prophylaxis. Remains on oral diuretics. Remains on Diflucan. Progress note dated December 24, 2024. The patient is again seen today in room 454. The patient has now been in the hospital for 42 days. He is on room air. He is not requiring any IV fluids. Clinically, he is stable, and could be discharged. Apparently there is some confusion as to his medications, which she can or cannot have at the custodial or rehab facility. Nonetheless, the patient does not need to be in the acute care facility any longer. No new labs today other than a glucose of 160. Continues on fluconazole, and is currently on prednisone 30 mg a day. Clinically he is very stable. No respiratory distress, cough, wheezing, chest tightness, phlegm production, etc. Progress note dated December 25, 2024. 59-year-old male who is now been in the hospital for 43 days. The patient is on room air. He is not requiring any IV fluids. Clinically, he has been stable for a number of days, and could have been discharged a week ago. Not sure what holding up the discharge is all about. No new laboratory data other than a glucose of 251. The patient is pretty much at baseline. He denies any unusual or worsening shortness of breath, cough, wheezing, chest tightness, phlegm pro duction, chest pain or pressure. Progress note dated December 26, 2024. 59-year-old male now who has been here for 44 days. The patient is ready for discharge. He is on room air. He is not receiving any IV fluids. We are not quite sure what is holding up the discharge. Anyway, the patient is not having any issues or problems. He denies any worsening shortness of breath, cough, wheezing, chest tightness, or phlegm production. He also denies any chest pain or pressure. No new labs today other than a glucose of 283. Progress note dated December 27, 2024. The patient is seen today in room 454. The patient apparently is waiting discharge to a custodial, in [place], [place]. The patient is currently on no supplemental oxygen, and not receiving any IV fluids. He has no specific complaints today. He is resting comfortably, sitting at the side of the bed. No new laboratory data today other than a glucose of 281. Objective - Vital Signs Vital signs: Vital Signs Temp 97.8 F 12/27/24 07:02 Pulse 80 12/27/24 11:09 Resp 17 12/27/24 08:00 BP 114/82 12/27/24 07:02 Pulse Ox 92 L 12/27/24 10:56 FiO2 21 12/27/24 10:56 Intake & Output 12/26/24 12/27/24 12/27/24 18:59 06:59 18:59 Output Total 4 Balance -4 Weight 69.8 kg Output: Stool 4 Other: Voiding Method Bedside Commode Bedside Commode # Voids 5 6 # Bowel Movements 2 ABP, PAP, CO, CI - Last Documented Arterial Blood Pressure 131/85 - Exam No acute distress, awake and alert, currently on room air. HEENT examination is grossly unremarkable. Mucous membranes are moist. No oral lesions. Neck supple. Full range of motion. No adenopathy thyromegaly or neck vein distention. Cardiovascular examination reveals an irregular rhythm and rate. S1-S2 normal. No S3 or S4. No discernible murmur noted. Heart sounds are distant. Lungs reveal scattered mild bilateral rhonchi. No wheezes or crackles. Breath sounds equal. Abdomen soft bowel sounds are heard. No masses or tenderness. Extremities are intact. No cyanosis clubbing or edema. Skin reveals no significant rashes. Neurologic examination is brief but nonfocal. - Labs CBC & Chem 7: 12/23/24 05:56 12/23/24 05:56 Labs: Abnormal Lab Results - Last 24 Hours (Table) 12/26/24 12/26/24 12/26/24 Range/Units 16:16 21:01 22:01 POC Glucose (mg/dL) 268 H 216 H 135 H (70-110) mg/dL 12/27/24 12/27/24 Range/Units 06:01 11:31 POC Glucose (mg/dL) 168 H 281 H (70-110) mg/dL Assessment and Plan Assessment: Acute on chronic hypoxic and hypercapnic respiratory failure, requiring intubation and mechanical ventilation shortly after he received Ativan for agitation on the medical floor. Extubated on 11/29/2024. Recovered and on room air oxygen. Haemophilus influenza pneumonia, in the setting of acute influenza A infect ion/superimposed bacterial pneumonia. Remains on Zosyn per ID service. Procalcitonin 0.12. Acute influenza A infection, completed Tamiflu. Atrial fibrillation with controlled ventricular response. 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 Most recently treated with Tecentriq. CAT scan of the chest done on 11/18/2024 shows no evidence of any residual tumor or tumor progression. History of metastatic brain lesions. 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 MRI of the brain December 17, 2024 revealed bilateral parietal lesions which have decreased in size compared to November 08, 2023. History of seizures. Chronic metabolic encephalopathy, multifactorial mostly with chronic hypercapnia. Hypertension. Striae of polysubstance abuse. Olecranon bursitis, wound culture positive for methicillin-resistant Staphylococcus aureus. Plan: Plan dated November 15, 2024. The patient is seen in room 350. Currently he is on 5 L nasal cannula. He is not receiving any IV fluids. The patient has a BiPAP device in the room, with settings of 10/5, and 40% that he uses intermittently. All labs, x-rays, medications are reviewed. Will go ahead and get a follow-up chest x-ray in the morning. Additional recommendations and suggestions are forthcoming. Initial chest x-ray revealed relatively clear lung ayon, but the more recent x-ray shows some opacification, in the left lung. Prognosis is guarded. CODE STATUS should be addressed by the primary service. 50 minutes was spent with this patient, in the process of gathering data examining the patient, reviewing pertinent laboratory data x-rays, and medications, as well as discussing the diagnosis, treatment, prognosis, with the patient's primary nursing staff. Dictation was produced using [employer] dictation software. Please excuse any grammatical, word or spelling errors. Plan dated November 16, 2024. The patient was seen today in room 350. The patient is currently on 6 L nasal cannula. He is much more awake and alert. No respiratory distress. He is not receiving any IV fluids. The patient does continue on vancomycin. Labs, x- rays, and all medications are reviewed. CODE STATUS should be addressed by the primary service. A chest x-ray will be ordered for the morning. 50 minutes was spent with this patient, in the process of gathering data, examining the patient, reviewing pertinent laboratory data, x-rays, medications, as well as discussing diagnosis, treatment plan, prognosis, with the patient's primary nursing staff, and the patient himself. As mentioned, he was much more awake and alert today. Dictation was produced using [employer] software. Please excuse any grammatical, word or spelling errors. Plan dated November 17, 2024. The patient is seen again in room 350. The patient has developed atrial fibrillation with RVR. The primary service is being contacted, to ask whether or not cardiology can see this patient. Currently, the patient continues on vancomycin, for an infected elbow, with MRSA. CODE STATUS should be addressed by the primary service. All labs, x-rays, and medications are reviewed. The patient is currently on 5 L nasal cannula. He is getting saline at 5 cc an hour. We will continue to follow make recommendations. 50 minutes was spent with the patient, which included obtaining additional history, speaking to the [facility] nurse, examining the patient, reviewing pertinent laboratory data, x- rays, and medications, as well as discussing the diagnosis, treatment, prognosis, with the patient. We will continue to follow. Dictation was produced using [employer] software. Please excuse any grammatical, word o r spelling errors. Plan dated December 04, 2024. The patient is seen today in room 376. He continues on high flow nasal O2, at 8 L. Saturations were in the mid 90s. He continues on IV Zosyn. The patient also continues on DVT prophylaxis and GI prophylaxis. Labs, x-rays, and all medications were reviewed. We will continue to follow and make recommendations along the way. Eventually, the patient is to be transferred back to a custodial, down in [place]. We will continue to follow make recommendations. Prognosis is guarded. Dictation was produced using [employer] software. Please excuse any grammatical, word or spelling errors. Plan dated December 05, 2024. The patient was sitting on his bed, and he was very confused, and had a sitter at the bedside. He was talking about fishing. The patient continues on 8 L of oxygen. Labs, x-rays, and all medications are reviewed. The patient continues on Augmentin. He also continues on DuoNeb updrafts. We will continue to follow and make a recommendation where appropriate. Respiratory status is still tenuous. All labs, x-rays, and medications are reviewed. Dictation was produced using Dragon dictation software. Please excuse any grammatical, word or spelling errors. Plan dated December 06, 2024. The patient is seen today in room 376. He continues on high flow nasal O2 at 8 L. Additional recommendations and suggestions are forthcoming. Labs, x-rays, and medications are reviewed. The patient was quite confused yesterday, and seems a bit more with it today. He does have a sitter in the room. No new labs today other than a glucose of 217. We will continue to follow the patient. Prognosis is guarded. Dictation was produced using [employer] software. Please excuse any grammatical, word or spelling errors. Plan dated December 07, 2024. The patient is again seen in room 376. He continues on high flow nasal O2 at 8 L. The patient will get Solu-Medrol in place of prednisone. Will give him 60 mg every 6 hours. In addition we add budesonide 1 mg, mixed with formoterol 20 mcg, twice a day. His saturations on the 8 L or 93%. I have asked respiratory to try to wean down his FiO2 if possible. Labs, x-rays, and all medications are reviewed. We will continue to follow the patient, and make recommendations along the way. The patient's overall prognosis remains guarded. Dictation was produced using [employer] software. Please excuse any grammatical, word or spelling errors. Plan dated December 08, 2024. The patient is again seen today in room 376. He continues on high flow nasal O2 at 8 L. The patient is currently on IV Solu-Medrol, as well as breathing treatments, budesonide, and formoterol. Saturations are in the low to mid 90s. We will continue to follow the patient, make recommendations along the way. Labs, x-rays, and medications are reviewed. The patient's overall prognosis remains guarded. No additional recommendations are made at this time. Dictation was produced using [employer] software. Please excuse any grammatical, word or spelling errors. Plan dated December 24, 2024. The patient is stable, and ready for discharge. The patient has been ready for discharge for a number of days. Clinically, he is stable and there is nothing keeping him in the hospital. According to one of the discharge planners that has to do with one of his medications. Nonetheless, the patient is doing well from the pulmonary standpoint, is on room air, and not having any respiratory difficulty or distress. The patient has now been in the hospital for 42 days. Dictation was produced using [employer] software. Please excuse any grammatical, word or spelling errors. Plan dated December 25, 2024. The patient is stable. The patient is not requiring any supplemental oxygen. Respiratory status is stable. Hemodynamic status is stable. The patient is just awaiting discharge. The patient has been ready for discharge for the least a week or so. All labs, x-rays, and medications are reviewed. Prognosis is guarded. Dictation was produced using [employer] software. Please excuse any grammatical, word or spelling errors. Plan dated December 26, 2024. The patient is seen today in room 454. The patient remains on room air. The patient is not receiving any IV fluids. Labs, x-rays, and all medications are reviewed. As mentioned above, the patient has been ready for discharge for a number of days now. He has been at this hospital for 44 days. No need to have inpatient stay at this point. Dictation was produced using [employer] software. Please excuse any grammatical, word or spelling errors. Plan dated December 27, 2024. The patient is seen today in room 454. The patient sitting at the edge of the bed. He is on room air. No IV fluids. The patient is hopefully to be discharged to a custodial in [place], [place]. The patient has been stable for discharge, the last 5 to 7 days. Labs, x-rays, medications are reviewed. The patient does not have any complaints. He denies any shortness of breath, cough, wheezing, chest tightness, or phlegm production. Dictation was produced using [employer] software. Please excuse any grammatical, word or spelling errors. Time with Patient: Less than 30
--- NOTE | 2024-12-27 14:54 | P.PN ---
Subjective Progress Note Date: 12/27/24 Principal diagnosis: Reason for follow-up is left elbow septic olecranon bursitis/haemophilus pneumonia Patient is a 59-year-old male with a past medical history significant for hypertension seizure disorder atrial fibrillation he did have a metastatic lung cancer has been brought to the hospital for worsening swelling to the left elbow with a culture positive for MRSA concerning for septic olecranon bursitis. On today's evaluation that is 12/27/2024, the patient continues to be afebrile, the patient is on room air and breathing comfortably, the Pt denies having any chest pain or cough, the patient denies having any abdominal pain no vomiting or any diarrhea feeling better no new symptoms. No new lab has been obtained today Objective - Vital Signs Vital signs: Vital Signs Temp 97.6 F 12/27/24 13:03 Pulse 74 12/27/24 13:03 Resp 17 12/27/24 13:03 BP 128/65 12/27/24 13:03 Pulse Ox 97 12/27/24 13:03 FiO2 21 12/27/24 10:56 Intake & Output 12/26/24 12/27/24 12/27/24 18:59 06:59 18:59 Output Total 4 Balance -4 Weight 69.8 kg Output: Stool 4 Other: Voiding Method Bedside Commode Bedside Commode # Voids 5 6 # Bowel Movements 2 ABP, PAP, CO, CI - Last Documented Arterial Blood Pressure 131/85 - Exam GENERAL DESCRIPTION: Middle-age male lying in bed in no distress RESPIRATORY SYSTEM: Unlabored breathing , decreased breath sounds at bases HEART: S1 S2 regular rate and rhythm , ABDOMEN: Soft , no tenderness EXTREMITIES: No edema feet - Labs CBC & Chem 7: 12/23/24 05:56 12/23/24 05:56 Labs: Abnormal Lab Results - Last 24 Hours (Table) 12/26/24 12/26/24 12/26/24 Range/Units 16:16 21:01 22:01 POC Glucose (mg/dL) 268 H 216 H 135 H (70-110) mg/dL 12/27/24 12/27/24 Range/Units 06:01 11:31 POC Glucose (mg/dL) 168 H 281 H (70-110) mg/dL Assessment and Plan (1) Septic olecranon bursitis of left elbow Current Visit: Yes Status: Acute Code(s): M71.122 - OTHER INFECTIVE BURSITIS, LEFT ELBOW SNOMED Code(s): 8014081267941309 (2) Allergy to cephalosporin Current Visit: No Status: Acute Code(s): Z88.1 - ALLERGY STATUS TO OTHER ANTIBIOTIC AGENTS SNOMED Code(s): 358699507 (3) MRSA (methicillin resistant Staphylococcus aureus) infection Current Visit: Yes Status: Acute Code(s): A49.02 - METHICILLIN RESIS STAPH INFECTION, UNSP SITE SNOMED Code(s): 645407188 (4) Influenza A Current Visit: Yes Status: Acute Code(s): J10.1 - FLU DUE TO OTH IDENT INFLUENZA VIRUS W OTH RESP MANIFEST SNOMED Code(s): 247832128 (5) Pneumonia Current Visit: No Status: Acute Code(s): J18.9 - PNEUMONIA, UNSPECIFIED ORGANISM SNOMED Code(s): 889540906 (6) Leukocytosis Current Visit: No Status: Acute Code(s): D72.829 - ELEVATED WHITE BLOOD CELL COUNT, UNSPECIFIED SNOMED Code(s): 732359305 Plan: 1patient being admitted to the hospital for left elbow pain swelling redness he did have a wound with a culture positive for MRSA in the outpatient setting now with concern for left elbow septic olecranon bursitis for the patient received adequate IV vancomycin and did have healing of his left elbow ulcer/olecranon bursitis. 2patient with influenza A for which the patient has completed 5-day course of Tamiflu and also have pneumonia during this hospital admission for the patient has completed antibiotic therapy 3patient remains to be afebrile and has shown overall clinical improvement currently off supplemental oxygen on oral Diflucan, currently waiting for placement as per discussion with the nursing staff Dictation was produced using [employer] dictation software. please excuse any grammatical, word or spelling errors. Time with Patient: Less than 30
[2024-12-27 16:13] LABS: Glucose,Whole Blood 218 mg/dL (70-110)
--- NOTE | 2024-12-27 17:43 | P.PN ---
Subjective Progress Note Date: 12/27/24 No acute events overnight. Pt reporting feeling fatigued. Plan is for discharge to rehab once placement is obtained. Pt is anxious to get stronger and go home. Objective - Vital Signs Vital signs: Vital Signs Temp 97.6 F 12/27/24 13:03 Pulse 74 12/27/24 13:03 Resp 17 12/27/24 13:03 BP 128/65 12/27/24 13:03 Pulse Ox 97 12/27/24 13:03 FiO2 21 12/27/24 10:56 Intake & Output 12/26/24 12/27/24 12/27/24 18:59 06:59 18:59 Output Total 4 Balance -4 Weight 69.8 kg Output: Stool 4 Other: Voiding Method Bedside Commode Bedside Commode # Voids 5 6 # Bowel Movements 2 ABP, PAP, CO, CI - Last Documented Arterial Blood Pressure 131/85 - Constitutional General appearance: Present: no acute distress - EENT ENT: Present: hearing grossly normal - Respiratory Details: breathing is even and unlabored - Cardiovascular Details: skin warm and dry - Integumentary Integumentary: Absent: cyanotic - Musculoskeletal Musculoskeletal: Present: generalized weakness - Psychiatric Psychiatric: Present: A&O x's 3 - Labs CBC & Chem 7: 12/23/24 05:56 12/23/24 05:56 Labs: Abnormal Lab Results - Last 24 Hours (Table) 12/26/24 12/26/24 12/26/24 Range/Units 16:16 21:01 22:01 POC Glucose (mg/dL) 268 H 216 H 135 H (70-110) mg/dL 12/27/24 12/27/24 Range/Units 06:01 11:31 POC Glucose (mg/dL) 168 H 281 H (70-110) mg/dL Assessment and Plan (1) Altered mental status Current Visit: Yes Status: Resolved Priority: High Code(s): R41.82 - ALTERED MENTAL STATUS, UNSPECIFIED SNOMED Code(s): 233385497 (2) Small cell lung cancer Current Visit: Yes Status: Acute Priority: Medium Code(s): C34.90 - MALIGNANT NEOPLASM OF UNSP PART OF UNSP BRONCHUS OR LUNG SNOMED Code(s): 543367969 Plan: Altered mental status -Patient has had similar episodes in the past, usually associated with seizure activity or disease progression in the brain. CT of the head without contrast this visit did not report any acute or new findings, no reports of seizure activity. -Sputum cultures positive for haemophilus influenza. Pulmonary following. -Completed treatment for skin infection and brusitis, as prescribed by Infectious disease. -Pt mental status has fluctuated this admit. He is back to baseline -MRI brain showing bilateral parietal lesions decreased in size with no new lesi ons noted Small cell lung cancer -Diagnosis and treatment as stated in consult -Patient has had disease recurrence, all within the brain. Treated with radiation -Patient has been on maintenance immunotherapy treatment for almost 2 years, no progression of disease/new disease -Hold treatment for now, until acute condition treated and resolved. -Highly suspect patient is going to need rehabilitation especially after 34 days inpatient. Treatment will be on hold until patient is discharged from rehabilitation. He will need to be assessed by the Medical Oncologist prior to resuming any treatment -CT chest with contrast done, no new disease, small lilly pl effusions. -He will cont to have treatment, f/u imaging as directed by Med Onc and Rad Onc Treatment will be on hold until discharged from rehab facility. Pt is cleared from hem/onc standpoint Doctor attests: I performed a history and physical examination of this patient, developed impression and plan of care. Discussed with dictator. I agree with dictators note, documented as a scribe.
[2024-12-27 21:33] LABS: Glucose,Whole Blood 166 mg/dL (70-110)
[2024-12-28 06:22] LABS: Glucose,Whole Blood 173 mg/dL (70-110)
[2024-12-28 07:33] LABS: ALT 33 U/L (4-49); AST 25 U/L (17-59); African American GFR (CKD) >90 (>60 ml/min/1.73 sqM); Albumin 3.5 g/dL (3.5-5.0); Albumin/Globulin Ratio 1.4; Alkaline Phosphatase 81 U/L (38-126); Anion Gap 7 mmol/L; Blood Urea Nitrogen 38 mg/dL (9-20); C Reactive Protein 3.2 mg/dL (<1.0); Calcium 9.4 mg/dL (8.4-10.2); Carbon Dioxide 29 mmol/L (22-30); Chloride 99 mmol/L (98-107); Globulin 2.5 g/dL; Glucose 125 mg/dL (74-99); Non-African American GFR(CKD) >90 (>60 ml/min/1.73 sqM); Potassium 3.8 mmol/L (3.5-5.1); Sodium 135 mmol/L (137-145); Total Bilirubin 0.3 mg/dL (0.2-1.3)
[2024-12-28 09:19] LABS: Basophils # (A) 0.06 X 10*3/uL (0.00-0.10); Basophils % (A) 0.5 %; Eosinophils # (A) 0.13 X 10*3/uL (0.04-0.35); Eosinophils % (A) 1.2 %; HCT 36.3 % (39.6-50.0); HGB 10.8 g/dL (13.0-17.0); Lymphocytes # (A) 1.46 X 10*3/uL (0.90-5.00); Lymphocytes % (A) 13.3 %; MCH 28.6 pg (27.0-32.0); MCHC 29.8 g/dL (32.0-37.0); Mean Platelet Volume 10.7 FL (9.5-12.2); Monocytes # (A) 0.91 X 10*3/uL (0.20-1.00); Monocytes % (A) 8.3 %; NRBC Per 100 WBC 0.14 X 10*3/uL (0.00-0.01); Neutrophils # (A) 8.05 X 10*3/uL (1.80-7.70); Neutrophils % (A) 73.4 %; Platelet Count 212 X 10*3/uL (140-440); RBC 3.78 X 10*6/uL (4.40-5.60); RDW 18.4 % (11.5-14.5); WBC 10.97 X 10*3/uL (4.50-10.00)
[2024-12-28 12:16] LABS: Glucose,Whole Blood 246 mg/dL (70-110)
--- NOTE | 2024-12-28 12:33 | P.PN ---
Subjective Progress Note Date: 12/28/24 The patient is seen today December 18, 2024 in follow-up on the selective care unit. He was transferred out of the intensive care unit yesterday. He remains awake and alert. Oriented to person only. patient access director at the bedside. He is maintaining good O2 saturations in the 90s on room air. He has been afebrile. Hemodynamically stable. MRI of the brain revealed no evidence of acute/subacute CVA. There is bilateral parietal lesions which have decreased in size compared to November 08, 2023. White count 15.7. Hemoglobin 11.6. Platelets 308. Sodium 142. Potassium 3.8. Bicarb 27. BUN 41. Creatinine 0.80. Glucose 121. Patient's, Pulmicort and Perforomist inhalations, prednisone taper. Remains on antibiotics in the form of Zosyn. Heparin for DVT prophylaxis. Remains on IV diuretics. Currently in a -330 mL balance. The patient is seen today December 19, 2024 in follow-up to the regular medical floor. He is currently sitting up in a chair. Awake and alert in no acute distress. He is calm and cooperative. No health and safety instructor at the bedside. He remains on DuoNeb inhalations, Pulmicort and performance inhalations, prednisone taper. Heparin for DVT prophylaxis. Remains on IV diuretics. Remains on Zosyn. Culture was positive for haemophilus influenza nearly 1 month ago. White count 17.4 hemoglobin 12.1. Platelets 304. C-reactive protein 1.30. Currently in a -800 mL balance. The patient is seen today December 20, 2024 in follow-up on the regular medical floor. He is awake and alert in no acute distress. Calm and cooperative. He is sitting up in a chair at the bedside. He denies any worsening shortness of breath, cough or congestion. He is maintaining good O2 saturations in the 90s on room air. Glucose 167. He remains on DuoNeb inhalations, Pulmicort and Perforomist inhalations, prednisone taper. He remains on antibiotics in the form of Zosyn per ID service. Heparin for DVT prophylaxis. Remains on IV diuretics. Currently in the -2.5 L balance. The patient is seen today December 21, 2024 in follow-up on the regular medical floor. He is sitting up in bed. Awake and alert in no acute distress. He is calm and cooperative. He denies any worsening shortness of breath, cough or congestion. He is maintaining good O2 saturations in the 90s on room air. He has been afebrile. Hemodynamically stable. Globin 12.4. Platelets 251. Sodium 136. Potassium 4.1. Bicarb 24. BUN 35. Creatinine 0.86. Glucose 94. Procalcitonin negative at 0.12. Remains on Diflucan and Zosyn per ID service. He is continued on DuoNeb inhalations, Symbicort, prednisone taper. Heparin for DVT prophylaxis. Remains on oral diuretics. Oral Diamox. Currently in a -1.2 L balance. The patient is seen today December 22, 2024 in follow-up on the regular medical floor. He is currently up in a chair. Awake and alert in no acute distress. He is improving daily. He remains on DuoNeb and elations, Symbicort, prednisone taper. Remains on oral Lasix and Diamox. Heparin for DVT prophylaxis. Continued on Diflucan and Zosyn. Original sputum from November 26, 2024 was positive for haemophilus influenza. Glucose 92. Currently in a -3.3 L balance. The patient is seen today December 23, 2024 in follow-up on the regular medical floor. He is awake and alert in no acute distress. He remains calm and cooperative. He is maintaining good O2 saturations in the 90s on room air. White count 19.2. Hemoglobin 11.6. Platelets 220. Sodium 141. Potassium 4.0. Bicarb 25. BUN 35. Creatinine 0.8. Glucose 128. He remains on DuoNeb inhalations, Symbicort, prednisone taper. Completed Zosyn. He remains on heparin for DVT prophylaxis. Remains on oral diuretics. Remains on Diflucan. The patient is seen today December 28, 2024 in follow-up on the regular medical f landry. He is currently sitting up at the bedside. Awake and alert in no acute distress. Maintaining good O2 saturations in the 90s on room air. No IV fluids. He is continued on DuoNeb inhalations, Symbicort, prednisone taper. Remains on oral diuretics. Remains on Diflucan per ID service. White count 10.9. Hemoglobin 10.8. Platelets 212. Sodium 135. Potassium 3.8. Bicarb 29. BUN 38. Creatinine 0.8. Glucose 125. Objective - Vital Signs Vital signs: Vital Signs Temp 97.7 F 12/28/24 07:20 Pulse 80 12/28/24 09:12 Resp 16 12/28/24 07:20 BP 111/73 12/28/24 07:20 Pulse Ox 92 L 12/28/24 07:20 FiO2 21 12/27/24 10:56 Intake & Output 12/27/24 12/28/24 12/28/24 18:59 06:59 18:59 Other: Voiding Method Bedside Commode Bedside Commode # Voids 7 4 # Bowel Movements 3 ABP, PAP, CO, CI - Last Documented Arterial Blood Pressure 131/85 - Exam GENERAL EXAM: Alert, calm, cooperative 59-year-old male, on room air oxygen, comfortable in no apparent distress. HEAD: Normocephalic. EYES: Normal reaction of pupils, equal size. NOSE: Clear with pink turbinates. THROAT: No erythema or exudates. Evidence of previous tracheostomy. NECK: No masses, no JVD. CHEST: No chest wall deformity. LUNGS: Equal air entry with no crackles, wheeze or rhonchi. CVS: S1 and S2 normal with no audible murmur, regular rhythm. ABDOMEN: No hepatosplenomegaly, normal bowel sounds, no guarding or rigidity. SPINE: No scoliosis or deformity SKIN: No rashes. Superficial ulcerations over the lower extremities. CENTRAL NERVOUS SYSTEM: Oriented to person only, no focal deficits, tone is normal in all 4 extremities. EXTREMITIES: There is no peripheral edema. No clubbing, no cyanosis. Peripheral pulses are intact. - Labs CBC & Chem 7: 12/28/24 05:33 12/28/24 05:33 Labs: Abnormal Lab Results - Last 24 Hours (Table) 12/27/24 12/27/24 12/28/24 Range/Units 16:11 21:32 05:33 WBC 10.97 H (4.50-10.00) X 10*3/uL RBC 3.78 L (4.40-5.60) X 10*6/uL Hgb 10.8 L (13.0-17.0) g/dL Hct 36.3 L (39.6-50.0) % MCHC 29.8 L (32.0-37.0) g/dL RDW 18.4 H (11.5-14.5) % Immature Gran # 0.36 H (0.00-0.04) X 10*3/uL Neutrophils # 8.05 H (1.80-7.70) X 10*3/uL NRBC/100 WBC Diff 0.14 H (0.00-0.01) X 10*3/uL Sodium (137-145) mmol/L BUN (9-20) mg/dL Glucose (74-99) mg/dL POC Glucose (mg/dL) 218 H 166 H (70-110) mg/dL C-Reactive Protein (<1.0) mg/dL Total Protein (6.3-8.2) g/dL 12/28/24 12/28/24 12/28/24 Range/Units 05:33 06:21 12:14 WBC (4.50-10.00) X 10*3/uL RBC (4.40-5.60) X 10*6/uL Hgb (13.0-17.0) g/dL Hct (39.6-50.0) % MCHC (32.0-37.0) g/dL RDW (11.5-14.5) % Immature Gran # (0.00-0.04) X 10*3/uL Neutrophils # (1.80-7.70) X 10*3/uL NRBC/100 WBC Diff (0.00-0.01) X 10*3/uL Sodium 135 L (137-145) mmol/L BUN 38 H (9-20) mg/dL Glucose 125 H (74-99) mg/dL POC Glucose (mg/dL) 173 H 246 H (70-110) mg/dL C-Reactive Protein 3.2 H (<1.0) mg/dL Total Protein 6.0 L (6.3-8.2) g/dL Assessment and Plan Assessment: Acute on chronic hypoxic and hypercapnic respiratory failure, requiring intubation and mechanical ventilation shortly after he received Ativan for agitation on the medical floor. Extubated on 11/29/2024. Recovered and on room air oxygen Haemophilus influenza pneumonia, in the setting of acute influenza A infection/superimposed bacterial pneumonia. Remains on Zosyn per ID service. Procalcitonin 0.12 Acute influenza A infection, completed Tamiflu Atrial fibrillation with controlled ventricular response. 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 Most recently treated with Tecentriq. CAT scan of the chest done on 11/18/2024 shows no evidence of any residual tumor or tumor progression History of metastatic brain lesions. 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 MRI of the brain December 17, 2024 revealed bilateral parietal lesions which have decreased in size compared to November 08, 2023 History of seizures, maintained on Keppra Chronic metabolic encephalopathy, multifactorial mostly with chronic hypercapnia Hypertension Striae of polysubstance abuse Olecranon bursitis, wound culture positive for methicillin-resistant Staph ylococcus aureus. The patient was treated with vancomycin Plan: The patient was seen and evaluated Medications and labs reviewed Continue DuoNeb inhalations Continue Symbicort Continue prednisone taper Discontinue Lasix and Diamox Heparin for DVT prophylaxis Continued on Diflucan per ID service Stable and on room air oxygen Awaiting ECF placement, possibly the [facility] We will see the patient on an as needed basis I have personally seen and examined the patient, performed the documentation and the assessment and plan as written. Number of minutes spent on the visit: 10 Dictation was produced using [employer] dictation software. Please excuse any grammatical, word or spelling errors.
--- NOTE | 2024-12-28 16:05 | P.PN ---
Subjective Progress Note Date: 12/28/24 Principal diagnosis: Reason for follow-up is left elbow septic olecranon bursitis/haemophilus pneumonia Patient is a 59-year-old male with a past medical history significant for hypertension seizure disorder atrial fibrillation he did have a metastatic lung cancer has been brought to the hospital for worsening swelling to the left elbow with a culture positive for MRSA concerning for septic olecranon bursitis. On today's evaluation that is 12/28/2024, patient did not have any fever and denies any chills, patient is breathing comfortably on room air, patient with no chest pain or cough patient did not have any abdominal pain nausea vomiting or any loose stools. Patient white count is down to 10.97, creatinine 0.80 Objective - Vital Signs Vital signs: Vital Signs Temp 97.2 F L 12/28/24 13:54 Pulse 86 12/28/24 13:54 Resp 16 12/28/24 13:54 BP 118/83 12/28/24 13:54 Pulse Ox 95 12/28/24 13:54 FiO2 21 12/27/24 10:56 Intake & Output 12/27/24 12/28/24 12/28/24 18:59 06:59 18:59 Other: Voiding Method Bedside Commode Bedside Commode # Voids 7 4 # Bowel Movements 3 ABP, PAP, CO, CI - Last Documented Arterial Blood Pressure 131/85 - Exam GENERAL DESCRIPTION: Middle-age male lying in bed in no distress RESPIRATORY SYSTEM: Unlabored breathing , decreased breath sounds at bases HEART: S1 S2 regular rate and rhythm , ABDOMEN: Soft , no tenderness EXTREMITIES: No edema feet - Labs CBC & Chem 7: 12/28/24 05:33 12/28/24 05:33 Labs: Abnormal Lab Results - Last 24 Hours (Table) 12/27/24 12/27/24 12/28/24 Range/Units 16:11 21:32 05:33 WBC 10.97 H (4.50-10.00) X 10*3/uL RBC 3.78 L (4.40-5.60) X 10*6/uL Hgb 10.8 L (13.0-17.0) g/dL Hct 36.3 L (39.6-50.0) % MCHC 29.8 L (32.0-37.0) g/dL RDW 18.4 H (11.5-14.5) % Immature Gran # 0.36 H (0.00-0.04) X 10*3/uL Neutrophils # 8.05 H (1.80-7.70) X 10*3/uL NRBC/100 WBC Diff 0.14 H (0.00-0.01) X 10*3/uL Sodium (137-145) mmol/L BUN (9-20) mg/dL Glucose (74-99) mg/dL POC Glucose (mg/dL) 218 H 166 H (70-110) mg/dL C-Reactive Protein (<1.0) mg/dL Total Protein (6.3-8.2) g/dL 12/28/24 12/28/24 12/28/24 Range/Units 05:33 06:21 12:14 WBC (4.50-10.00) X 10*3/uL RBC (4.40-5.60) X 10*6/uL Hgb (13.0-17.0) g/dL Hct (39.6-50.0) % MCHC (32.0-37.0) g/dL RDW (11.5-14.5) % Immature Gran # (0.00-0.04) X 10*3/uL Neutrophils # (1.80-7.70) X 10*3/uL NRBC/100 WBC Diff (0.00-0.01) X 10*3/uL Sodium 135 L (137-145) mmol/L BUN 38 H (9-20) mg/dL Glucose 125 H (74-99) mg/dL POC Glucose (mg/dL) 173 H 246 H (70-110) mg/dL C-Reactive Protein 3.2 H (<1.0) mg/dL Total Protein 6.0 L (6.3-8.2) g/dL Assessment and Plan (1) Septic olecranon bursitis of left elbow Current Visit: Yes Status: Acute Code(s): M71.122 - OTHER INFECTIVE BURSITIS, LEFT ELBOW SNOMED Code(s): 1794627776218687 (2) Allergy to cephalosporin Current Visit: No Status: Acute Code(s): Z88.1 - ALLERGY STATUS TO OTHER ANTIBIOTIC AGENTS SNOMED Code(s): 394869988 (3) MRSA (methicillin resistant Staphylococcus aureus) infection Current Visit: Yes Status: Acute Code(s): A49.02 - METHICILLIN RESIS STAPH INFECTION, UNSP SITE SNOMED Code(s): 802468495 (4) Influenza A Current Visit: Yes Status: Acute Code(s): J10.1 - FLU DUE TO OTH IDENT INFLUENZA VIRUS W OTH RESP MANIFEST SNOMED Code(s): 122008759 (5) Pneumonia Current Visit: No Status: Acute Code(s): J18.9 - PNEUMONIA, UNSPECIFIED ORGANISM SNOMED Code(s): 550739250 (6) Leukocytosis Current Visit: No Status: Acute Code(s): D72.829 - ELEVATED WHITE BLOOD CELL COUNT, UNSPECIFIED SNOMED Code(s): 595266708 Plan: 1patient being admitted to the hospital for left elbow pain swelling redness he did have a wound with a culture positive for MRSA in the outpatient setting now with concern for left elbow septic olecranon bursitis for the patient received adequate IV vancomycin and did have healing of his left elbow ulcer/olecranon bursitis. 2patient with influenza A for which the patient has completed 5-day course of Tamiflu and also have pneumonia during this hospital admission for the patient has completed antibiotic therapy 3patient remains to be afebrile and has shown overall clinical improvement, the patient white count normalized continue short course of Diflucan and will monit or clinical course closely Dictation was produced using [employer] dictation software. please excuse any grammatical, word or spelling errors. Time with Patient: Less than 30
[2024-12-28 16:41] LABS: Glucose,Whole Blood 185 mg/dL (70-110)
[2024-12-28 20:49] LABS: Glucose,Whole Blood 192 mg/dL (70-110)
[2024-12-28 21:49] LABS: Glucose,Whole Blood 169 mg/dL (70-110)
[2024-12-29 06:14] LABS: Glucose,Whole Blood 134 mg/dL (70-110)
[2024-12-29] MEDS: predniSONE 20 MG TAB PO SCH (09:23)
[2024-12-29 11:12] LABS: Glucose,Whole Blood 177 mg/dL (70-110)
--- NOTE | 2024-12-29 12:46 | P.PN ---
Subjective Progress Note Date: 12/29/24 Principal diagnosis: Reason for follow-up is left elbow septic olecranon bursitis/haemophilus pneumonia Patient is a 59-year-old male with a past medical history significant for hypertension seizure disorder atrial fibrillation he did have a metastatic lung cancer has been brought to the hospital for worsening swelling to the left elbow with a culture positive for MRSA concerning for septic olecranon bursitis. On today's evaluation that is 12/29/2024, Patient is afebrile patient is currently on room air and denies having any shortness of breath, the patient denies any chest pain or cough, the patient denies any nausea vomiting did not have any abdominal pain and no diarrhea. No new lab has been obtained today Objective - Vital Signs Vital signs: Vital Signs Temp 97.9 F 12/29/24 08:40 Pulse 79 12/29/24 12:08 Resp 18 12/29/24 08:40 BP 101/73 12/29/24 08:40 Pulse Ox 95 12/29/24 08:40 FiO2 21 12/27/24 10:56 Intake & Output 12/28/24 12/29/24 12/29/24 18:59 06:59 18:59 Intake Total 740 Balance 740 Intake: Oral 740 Other: Voiding Method Bedside Commode Bedside Commode # Voids 7 3 # Bowel Movements 5 1 ABP, PAP, CO, CI - Last Documented Arterial Blood Pressure 131/85 - Exam GENERAL DESCRIPTION: Middle-age male lying in bed in no distress RESPIRATORY SYSTEM: Unlabored breathing , decreased breath sounds at bases HEART: S1 S2 regular rate and rhythm , ABDOMEN: Soft , no tenderness EXTREMITIES: No edema feet - Labs CBC & Chem 7: 12/28/24 05:33 12/28/24 05:33 Labs: Abnormal Lab Results - Last 24 Hours (Table) 12/28/24 12/28/24 12/28/24 Range/Units 16:39 20:47 21:48 POC Glucose (mg/dL) 185 H 192 H 169 H (70-110) mg/dL 12/29/24 12/29/24 Range/Units 06:11 11:10 POC Glucose (mg/dL) 134 H 177 H (70-110) mg/dL Assessment and Plan (1) Septic olecranon bursitis of left elbow Current Visit: Yes Status: Acute Code(s): M71.122 - OTHER INFECTIVE BURSITIS, LEFT ELBOW SNOMED Code(s): 3139216292331902 (2) Allergy to cephalosporin Current Visit: No Status: Acute Code(s): Z88.1 - ALLERGY STATUS TO OTHER ANTIBIOTIC AGENTS SNOMED Code(s): 952551368 (3) MRSA (methicillin resistant Staphylococcus aureus) infection Current Visit: Yes Status: Acute Code(s): A49.02 - METHICILLIN RESIS STAPH INFECTION, UNSP SITE SNOMED Code(s): 893713997 (4) Influenza A Current Visit: Yes Status: Acute Code(s): J10.1 - FLU DUE TO OTH IDENT INFLUENZA VIRUS W OTH RESP MANIFEST SNOMED Code(s): 505932235 (5) Pneumonia Current Visit: No Status: Acute Code(s): J18.9 - PNEUMONIA, UNSPECIFIED ORGANISM SNOMED Code(s): 117802378 (6) Leukocytosis Current Visit: No Status: Acute Code(s): D72.829 - ELEVATED WHITE BLOOD CELL COUNT, UNSPECIFIED SNOMED Code(s): 399605216 Plan: 1patient being admitted to the hospital for left elbow pain swelling redness he did have a wound with a culture positive for MRSA in the outpatient setting now with concern for left elbow septic olecranon bursitis for the patient received adequate IV vancomycin and did have healing of his left elbow ulcer/olecranon bursitis. 2patient with influenza A for which the patient has completed 5-day course of Tamiflu and also have pneumonia during this hospital admission for the patient has completed antibiotic therapy 3patient remains to be afebrile and the patient white count normalized, currently being treated with Diflucan and will monitor clinical course closely, await placement Dictation was produced using [facility] dictation software. please excuse any grammatical, word or spelling errors. Time with Patient: Less than 30
[2024-12-29 16:31] LABS: Glucose,Whole Blood 172 mg/dL (70-110)
[2024-12-29 21:01] LABS: Glucose,Whole Blood 170 mg/dL (70-110)
[2024-12-29] MEDS: traZODone HCL 50 MG TAB PO PRN (22:20)
[2024-12-30 02:51] VITALS: RESP 17
[2024-12-30 06:36] LABS: Glucose,Whole Blood 155 mg/dL (70-110)
[2024-12-30 11:08] LABS: Glucose,Whole Blood 244 mg/dL (70-110)
[2024-12-30 13:40] VITALS: BP 135/84; PULSE 61; TEMP 97.5
--- NOTE | 2024-12-30 13:51 | P.DS ---
Providers Date of admission: 11/12/24 15:33 Expected date of discharge: 12/30/24 Attending physician: Cristian Byers Consults: 11/12/24 15:26 Consult Physician Urgent Consulting Provider: Chance Laguerre Consult Reason/Comments: Septic olecranon bursitis Do you want consulting provider notified?: Yes 11/13/24 12:16 Consult Physician Stat Consulting Provider: Joon San Consult Reason/Comments: resp distress/placed on bipap Do you want consulting provider notified?: Yes 11/13/24 12:18 Consult Physician Stat Consulting Provider: Humble Lieberman Consult Reason/Comments: lung cancer Do you want consulting provider notified?: Yes 12/14/24 09:50 Consult Physician Routine Consulting Provider: Carine Landis Consult Reason/Comments: confusion, lethargy history of lung ca w/ brain metastasis -treated in past Do you want consulting provider notified?: Yes Primary care physician: Cristian Byers Hospital Course: 59-year-old male with a known history of metastatic lung cell carcinoma And will not be able to be cared for in his home setting any further. Presents to the emergency center significant pain and swelling to the left elbow. There was evidence of sepsis at the time of his admission because he was brought into the hospital. He has had an extensive hospitalization. MRSA infection of the left BURSA was noted it was draining spontaneously and did not require surgical intervention. He has received his complete course of intravenous antibiotic therapy for his MRSA infection. In the interim he also developed influenza A and received his 5 days treatment of Tamiflu with what appears to be recovery of these pulmonary infection. He had also developed a pneumonia and was cared for by her critical care Haemophilus influenza was isolated he was treated with antibiotic therapy and completed a course of oral Augmentin for this issue. He has had significant alteration of his mental status throughout the stay. He has been seen by neurology as well as his oncologist. MRI was performed that revealed evidence of his stable old metastatic lesions with no new lesions and no evidence of any new acute stroke. His significant metabolic encephalopathy is finally shown some improvement. However he is profoundly weak It will not be able to receive care in his home setting. Plans have been made for ongoing care after discharge. Please refer to the medication list for his medications at discharge. He should follow-up with his primary care physician Dr. Ubaldo Byers in the next week. Plan - Discharge Summary Discharge Rx Participant: No New Discharge Prescriptions: New cloNIDine HCL [Catapres] 0.1 mg PO Q8HR tab Potassium Chloride ER [K-Dur 10] 30 meq PO BID tab Metoprolol Succinate (ER) [Toprol XL] 100 mg PO DAILY tab predniSONE [Deltasone] 20 mg PO DAILY tab Fluconazole [Diflucan] 100 mg PO DAILY tab Ipratropium-Albuterol Nebulize [Duoneb 0.5 mg-3 mg/3 ml Soln] 3 ml INHALATION RT-QID each levETIRAcetam [Keppra] 1,000 mg PO BID tab Pantoprazole [Protonix] 40 mg PO AC-BRKFST tab Buprenorphine-Nalox 8-2 mg Tab [Suboxone 8-2 mg Tab] 0.5 each SL BID tab Continue Aspirin 81 mg PO DAILY Furosemide [Lasix] 40 mg PO DAILY Amiodarone HCl [Pacerone] 100 mg PO DAILY Hydrocortisone [Cortef] 20 mg PO BID Discontinued Albuterol Inhaler [Ventolin Hfa Inhaler] 2 puff INHALATION RT-QID PRN PRN Reason: Shortness Of Breath levETIRAcetam [Keppra] 1,000 mg PO Q12HR Sulfamethox-Tmp 400-80Mg [Bactrim SS 400-80 mg] 1 tab PO BID Discharge Medication List Aspirin 81 mg PO DAILY 04/08/24 [History] Furosemide [Lasix] 40 mg PO DAILY 06/11/24 [History] Amiodarone HCl [Pacerone] 100 mg PO DAILY 11/12/24 [History] Hydrocortisone [Cortef] 20 mg PO BID 11/12/24 [History] Buprenorphine-Nalox 8-2 mg Tab [Suboxone 8-2 mg Tab] 0.5 each SL BID tab 12/30/24 [Rx] Fluconazole [Diflucan] 100 mg PO DAILY tab 12/30/24 [Rx] Ipratropium-Albuterol Nebulize [Duoneb 0.5 mg-3 mg/3 ml Soln] 3 ml INHALATION RT-QID each 12/30/24 [Rx] Metoprolol Succinate (ER) [Toprol XL] 100 mg PO DAILY tab 12/30/24 [Rx] Pantoprazole [Protonix] 40 mg PO AC-BRKFST tab 12/30/24 [Rx] Potassium Chloride ER [K-Dur 10] 30 meq PO BID tab 12/30/24 [Rx] cloNIDine HCL [Catapres] 0.1 mg PO Q8HR tab 12/30/24 [Rx] levETIRAcetam [Keppra] 1,000 mg PO BID tab 12/30/24 [Rx] predniSONE [Deltasone] 20 mg PO DAILY tab 12/30/24 [Rx] Activity/Diet/Wound Care/Special Instructions: Diet: regular, vegetarian Activity as tolerated Discharge Disposition: OTHER INSTITUTION NOT DEFINED
--- NOTE | 2024-12-30 14:21 | PN ---
PROGRESS NOTE DATE OF SERVICE: 12/27/2024 CHIEF COMPLAINT: Encephalopathy. HISTORY OF PRESENT ILLNESS: This gentleman awaits discharge. We are waiting for insurance approval. PHYSICAL EXAMINATION: CHEST: Clear. CARDIAC: Normal. ABDOMEN: Soft, nontender. NEUROLOGIC: He is still slightly confused. IMPRESSION: 1. Encephalopathy. 2. Carcinoma of the lung. PLAN: Await transfer to the longterm. MMODL / IJN: [id number] /
--- NOTE | 2024-12-30 14:22 | PN ---
PROGRESS NOTE DATE OF SERVICE: 12/29/2024 CHIEF COMPLAINT: Encephalopathy. HISTORY OF PRESENT ILLNESS: This gentleman's condition is unchanged. We are still waiting discharge plan. PHYSICAL EXAMINATION: GENERAL: He is alert, but confused. CHEST: Clear. IMPRESSION: 1. Encephalopathy. 2. Carcinoma of the lung. 3. Status post pneumonitis with sepsis. PLAN: Await discharge plan. MMODL / ZOEN: [id number] /
--- NOTE | 2024-12-30 14:22 | PN ---
PROGRESS NOTE DATE OF SERVICE: 12/28/2024 CHIEF COMPLAINT: Encephalopathy. HISTORY OF PRESENT ILLNESS: This gentleman awaits discharge plan. PHYSICAL EXAMINATION: GENERAL: He is semi alert. There has been no significant change. LUNGS: Breath sounds are heard bilaterally. CARDIAC: Normal. ABDOMEN: Soft, nontender. IMPRESSION: 1. Cancer of the lung. 2. Status post pneumonitis with sepsis. 3. Anoxic brain injury. PLAN: Await discharge plan which has not been finalized. MMODL / IJN: [id number] /
--- NOTE | 2024-12-30 14:58 | DS ---
DISCHARGE SUMMARY CHIEF COMPLAINT: Shortness of breath, hypokalemia, and CA of the lung. HISTORY OF PRESENT ILLNESS AND PHYSICAL EXAMINATION: Details of this man's history and physical can be found in the initial workup. LABORATORY STUDIES: While he was in the hospital, he had laboratory studies, details of which can be found in the laboratory section of his chart. COURSE IN THE HOSPITAL: After admission, he was placed on bedrest, started on intravenous fluids and a prolonged hospital course. He had various problems including the development of a bronchial pneumonia with sepsis whereby he became almost completely unresponsive and had to be moved to the intensive care unit. He very slowly was able to respond. He was followed by Intensive Medicine, Pulmonology and Cardiology as well as Oncology. He eventually became slightly more awake and alert, but not enough so that he could be discharged or sent for physical therapy. His course resulted in a significant encephalopathy. There was difficulty finding a place for him to go, but apparently the facility was identified that would take him on the . FINAL DIAGNOSES: 1. Hypokalemia. 2. 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 3. Chronic obstructive pulmonary disease. 4. Pneumonitis. 5. Septicemia. 6. Delirium. OPERATIONS: None. CONSULTATIONS: Pulmonology, Oncology. MMODL / IJN: [id number] /
--- NOTE | 2024-12-31 14:39 | P.PN ---
Subjective Progress Note Date: 12/30/24 Principal diagnosis: Reason for follow-up is left elbow septic olecranon bursitis/haemophilus pneumonia Patient is a 59-year-old male with a past medical history significant for hypertension seizure disorder atrial fibrillation he did have a metastatic lung cancer has been brought to the hospital for worsening swelling to the left elbow with a culture positive for MRSA concerning for septic olecranon bursitis. On today's evaluation that is 12/30/2024, patient has been afebrile, patient is breathing comfortably and is currently on room air, patient denies having any significant cough no chest pain, patient denies nausea vomiting or diarrhea and no abdominal pain, feeling better wants to go home. No new lab has been repeated today Objective - Vital Signs Vital signs: Vital Signs Temp 97.4 F L 12/30/24 07:08 Pulse 88 12/30/24 09:48 Resp 17 12/30/24 07:08 BP 106/73 12/30/24 07:08 Pulse Ox 92 L 12/30/24 07:08 FiO2 21 12/27/24 10:56 Intake & Output 12/29/24 12/30/24 12/30/24 18:59 06:59 18:59 Other: Voiding Method Bedside Commode Bedside Commode Bedside Commode # Voids 4 3 # Bowel Movements 2 1 ABP, PAP, CO, CI - Last Documented Arterial Blood Pressure 131/85 - Exam GENERAL DESCRIPTION: Middle-age male lying in bed in no distress RESPIRATORY SYSTEM: Unlabored breathing , decreased breath sounds at bases HEART: S1 S2 regular rate and rhythm , ABDOMEN: Soft , no tenderness EXTREMITIES: No edema feet - Labs CBC & Chem 7: 12/28/24 05:33 12/28/24 05:33 Labs: Abnormal Lab Results - Last 24 Hours (Table) 12/29/24 12/29/24 12/30/24 Range/Units 16:30 21:00 06:35 POC Glucose (mg/dL) 172 H 170 H 155 H (70-110) mg/dL 12/30/24 Range/Units 11:05 POC Glucose (mg/dL) 244 H (70-110) mg/dL Assessment and Plan (1) Septic olecranon bursitis of left elbow Status: Acute Code(s): M71.122 - OTHER INFECTIVE BURSITIS, LEFT ELBOW SNOMED Code(s): 4935397427774839 (2) Allergy to cephalosporin Status: Acute Code(s): Z88.1 - ALLERGY STATUS TO OTHER ANTIBIOTIC AGENTS SNOMED Code(s): 739200667 (3) MRSA (methicillin resistant Staphylococcus aureus) infection Status: Acute Code(s): A49.02 - METHICILLIN RESIS STAPH INFECTION, UNSP SITE SNOMED Code(s): 080695387 (4) Influenza A Status: Acute Code(s): J10.1 - FLU DUE TO OTH IDENT INFLUENZA VIRUS W OTH RESP MANIFEST SNOMED Code(s): 473022726 (5) Pneumonia Status: Acute Code(s): J18.9 - PNEUMONIA, UNSPECIFIED ORGANISM SNOMED Code(s): 797457360 (6) Leukocytosis Status: Acute Code(s): D72.829 - ELEVATED WHITE BLOOD CELL COUNT, UNSPECIFIED SNOMED Code(s): 606034941 Plan: 1patient being admitted to the hospital for left elbow pain swelling redness he did have a wound with a culture positive for MRSA in the outpatient setting now with concern for left elbow septic olecranon bursitis for the patient received adequate IV vancomycin and did have healing of his left elbow ulcer/olecranon bursitis. 2patient with influenza A for which the patient has completed 5-day course of Tamiflu and also have pneumonia during this hospital admission for the patient has completed antibiotic therapy 3patient remains to be afebrile and the patient white count normalized, recommend a short course of Diflucan on discharge to the rehab Dictation was produced using [employer] dictation software. please excuse any grammatical, word or spelling errors. Time with Patient: Less than 30
== END 2024-12-30 14:47 | DRG 720 ==
LOC: EC 11:58 → 5NMEDONC 15:33 → 6NMEDSUR 23:53 → 5NMEDONC 23:58 → 3SCARD 11-13 12:39 → 2SICU 11-26 05:33 → 3SCARD 12-03 13:26 → 2SICU 12-11 12:08 → 4SSUR 12-18 06:25
PROVIDERS: ADMIT Family Medicine; ATTEND Family Medicine
PROC: 3E0333Z Introduction of Anti-inflammatory into Peripheral Vein, Percutaneous Approach (ICD-10-PCS; 2024-11-14)
PROC: 5A09357 Assistance with Respiratory Ventilation, Less than 24 Consecutive Hours, Continuous Positive Airway Pressure (ICD-10-PCS; 2024-11-14)
PROC: 02HV33Z Insertion of Infusion Device into Superior Vena Cava, Percutaneous Approach (ICD-10-PCS; principal; 2024-11-26)
PROC: 0BH18EZ Insertion of Endotracheal Airway into Trachea, Via Natural or Artificial Opening Endoscopic (ICD-10-PCS; 2024-11-26)
PROC: 5A1945Z Respiratory Ventilation, 24-96 Consecutive Hours (ICD-10-PCS; 2024-11-26)
PROC: 03HY32Z Insertion of Monitoring Device into Upper Artery, Percutaneous Approach (ICD-10-PCS; 2024-11-26)
PROC: 4A133B1 Monitoring of Arterial Pressure, Peripheral, Percutaneous Approach (ICD-10-PCS; 2024-11-26)
PROC: 4A133J1 Monitoring of Arterial Pulse, Peripheral, Percutaneous Approach (ICD-10-PCS; 2024-11-26)
DX: A41.02 Sepsis due to Methicillin resistant Staphylococcus aureus (principal); J96.22 Acute and chronic respiratory failure with hypercapnia; G93.1 Anoxic brain damage, not elsewhere classified; J96.21 Acute and chronic respiratory failure with hypoxia; G92.8 Other toxic encephalopathy; C79.31 Secondary malignant neoplasm of brain; I21.A1 Myocardial infarction type 2; G40.509 Epileptic seizures related to external causes, not intractable, without status epilepticus; J14 Pneumonia due to Hemophilus influenzae; C34.91 Malignant neoplasm of unspecified part of right bronchus or lung; I11.0 Hypertensive heart disease with heart failure; F11.11 Opioid abuse, in remission; I08.3 Combined rheumatic disorders of mitral, aortic and tricuspid valves; J44.0 Chronic obstructive pulmonary disease with (acute) lower respiratory infection; M71.122 Other infective bursitis, left elbow; E87.6 Hypokalemia; F17.210 Nicotine dependence, cigarettes, uncomplicated; I49.9 Cardiac arrhythmia, unspecified; I48.20 Chronic atrial fibrillation, unspecified; E83.42 Hypomagnesemia; E86.0 Dehydration; F41.9 Anxiety disorder, unspecified; G62.9 Polyneuropathy, unspecified; J98.01 Acute bronchospasm; J98.4 Other disorders of lung; J10.1 Influenza due to other identified influenza virus with other respiratory manifestations; L02.414 Cutaneous abscess of left upper limb; L03.114 Cellulitis of left upper limb; B95.62 Methicillin resistant Staphylococcus aureus infection as the cause of diseases classified elsewhere; R54 Age-related physical debility; W06.XXXA Fall from bed, initial encounter; Y92.230 Patient room in hospital as the place of occurrence of the external cause; Z88.1 Allergy status to other antibiotic agents; Z79.01 Long term (current) use of anticoagulants; Z79.82 Long term (current) use of aspirin; Z79.899 Other long term (current) drug therapy; Z86.14 Personal history of Methicillin resistant Staphylococcus aureus infection; Z92.3 Personal history of irradiation; Z92.21 Personal history of antineoplastic chemotherapy; Z80.1 Family history of malignant neoplasm of trachea, bronchus and lung
CPT/HCPCS: 36410; 36415; 36600; 70450; 70460; 70553; 71045; 71046; 71260; 76937; 80048; 80053; 80202; 81001; 82306; 82565; 82607; 82746; 82803; 82805; 83036; 83605; 83735; 83880; 84132; 84133; 84145; 84439; 84443; 84484; 85025; 85027; 85379; 85610; 85730; 86140; 87040; 87070; 87205; 87636; 93005; 93306; 94002; 94003; 94640; 94660; 94760; 95816; 96361; 96365; 96366; 96367; 96375; 96376; 99291